=== PATIENT | female | born 1975 | race Caucasian/White ===

== ENCOUNTER → 2017-06-29 10:58 | Outpatient (CLI) | payer OTHER, SELFPAY ==
[2017-06-29 12:24] LABS: Absolute Lymphocyte Count 1.87 X10^3/ul (0.83-4.51); Absolute Neutrophil Count 4.4 X10^3/uL (2.0-7.7); Basophil# 0.01 X10^3/uL; Basophil% 0.1 % (0-1); Eosinophil# 0.14 X10^3/uL; Eosinophils% 2.1 % (0-5); Hematocrit 39.7 % (37-47); Hemoglobin 13.2 g/dl (12.0-15.0); Lymphocyte # 1.87 X10^3/ul (4.0); Lymphocyte % 27.4 % (19-41); Mean Corp Hgb Conc 33.2 g/gl (32-36); Mean Corpuscular Volume 90.2 fL (81-99); Mean Platelet Vol. 12.2 fl (6.2-12.0); Monocyte# 0.41 X10^3/uL; Neutrophil # 4.38 X10^3/uL (2.7-7.7); Neutrophil % 64.3 % (47-70); Platelet Count 219 K/mm3 (150-450); RBC Distribution Width CV 12.4 % (11.6-14.6); RBC Distribution Width SD 40.6 fl (35.1-43.9); White Blood Count 6.8 K/mm3 (4.4-11.0)
[2017-06-29 12:25] LABS: POSITIVE COUNT NO; POSITIVE DIFFERENTIAL NO; POSITIVE MORPHOLOGY NO
[2017-06-29 12:47] LABS: Hemoglobin A1c 5.6 % (4.2-6.3)
[2017-06-29 12:55] LABS: AST(SGOT) 13 U/L (15-37); Alanine Aminotransfer ALT/SGPT 26 U/L (13-56); Albumin, Serum 3.5 g/dL (3.2-5.0); Alkaline Phosphatase 52 U/L (45-117); Anion Gap 11 (5-15); BUN 16 mg/dL (7-18); BUN/Creat Ratio 23.6 RATIO (10-20); Calcium,Total 9.3 mg/dL (8.5-10.1); Chloride 107 mmol/L (98-107); Cholesterol 220 mg/dL (200); Creatinine, Serum 0.68 mg/dL (0.55-1.02); EST Glomerular Filtration Rate 101 mL/min (>60); Est Glom Filt Rate - Afr Amer 123 mL/min (>60); Globulin 3.6 g/dL (2.2-4.2); Glucose 92 mg/dL (74-106); High Density Lipoprotein 46 mg/dL; Potassium 4.1 mmol/L (3.5-5.1); Protein, Total 7.1 g/dL (6.4-8.2); Sodium Level 141 mmol/L (136-145); Triglycerides 217 mg/dL; Very Low Density Lipoprotein 43 mg/dL (5-40)
[2017-06-30 10:29] LABS: Vitamin B12 395 pg/mL (211-911); Vitamin D,25 Hydroxy 20.7 ng/mL (29.95-100.01)
== END ==
PROVIDERS: Family Provider Family Medicine; PCP Family Medicine; Visit Provider Family Medicine
DX: R53.83 Other fatigue (principal); E66.01 Morbid (severe) obesity due to excess calories; R03.0 Elevated blood-pressure reading, without diagnosis of hypertension; Z83.3 Family history of diabetes mellitus
CPT/HCPCS: 36415; 80053; 80061; 82306; 82607; 83036; 83735; 84443; 85025

== ENCOUNTER → 2017-07-25 07:00 | Outpatient (CLI) | payer OTHER, SELFPAY ==
--- NOTE | 2017-07-25 06:55 | BI_ITS ---
MAMMOGRAPHY - BILATERAL SCREENING REASON FOR EXAM: Female, 42 years old. Routine annual screening examination. PERTINENT HISTORY: NO FAM HX - NO PREV SURG'S - LT MOLE AND SXILLARY TAGS TECHNIQUE: Digital bilateral breast oscar (3D mammographic acquisition) in the CC and MLO projections. 2-D mediolateral oblique (MLO) and craniocaudad (CC) views of both breasts were obtained. CAD: Full Field Digital Mammography with Computer Added Detection was performed. COMPARISON: 07/16/2015 FINDINGS: Breast Composition: The breasts are heterogeneously dense, which may obscure small masses. There are no There is an asymmetric density in the upper part of the left breast for which further evaluation by spot compression views and ultrasound would be recommended. There are no suspicious calcifications. dominant masses or suspicious calcifications. No other significant abnormalities are identified. BI/SCREENING MAMM (CAD), BILAT IMPRESSION: Further imaging evaluation recommended, as described above. (E) ASSESSMENT CATEGORY: BIRADS Category 0: Incomplete. Need additional imaging evaluation. A letter regarding these results will be sent to the patient by the facility within 30 days. Approximately 10% of breast cancers are not detected by mammography. A normal mammogram should not delay biopsy of a clinically suspicious abnormality. [id number] Electronically Signed: Connie Cabrera MD at 15:42 EDT Tel , Service support ,
--- NOTE | 2017-07-25 07:00 | DT_ITS ---
This patient was seen during an EMR downtime July 24, 2017 - July 31, 2017. This patient may have a combination of paper and electronic documentation or all paper documentation. All documentation is viewable within the e-chart portion of [email or web address] for each patient visit.
== END ==
PROVIDERS: Family Provider Family Medicine; PCP Family Medicine; Visit Provider Obstetrics & Gynecology
DX: Z12.31 Encounter for screening mammogram for malignant neoplasm of breast (principal); N64.89 Other specified disorders of breast
CPT/HCPCS: 77063; 77067

== ENCOUNTER → 2017-07-31 19:01 | Outpatient (CLI) | payer OTHER, SELFPAY ==
--- NOTE | 2017-07-31 19:01 | DT_ITS ---
This patient was seen during an EMR downtime July 24, 2017 - July 31, 2017. This patient may have a combination of paper and electronic documentation or all paper documentation. All documentation is viewable within the e-chart portion of [facility] for each patient visit.
[2017-08-09 09:47] LABS: HPV APTIMA, High Risk Negative (Negative)
== END ==
PROVIDERS: Family Provider Family Medicine; PCP Family Medicine; Visit Provider Obstetrics & Gynecology
DX: Z12.4 Encounter for screening for malignant neoplasm of cervix (principal)
CPT/HCPCS: 88175; G0145

== ENCOUNTER → 2017-08-14 13:57 | Outpatient (CLI) | payer OTHER, SELFPAY ==
--- NOTE | 2017-08-14 14:01 | BI_ITS ---
MAMMOGRAPHY - UNILATERAL DIAGNOSTIC: LEFT BREAST REASON FOR EXAM: Female, 42 years old. Abnormal screening mammogram. PERTINENT HISTORY: Non-contributory. TECHNIQUE: Compression spot views of the left breast were obtained in the mediolateral oblique and craniocaudad projections. CAD: Full Field Digital Mammography with Computer Added Detection was performed. COMPARISON: Comparison is made with prior study dated July 25, 2017. FINDINGS: Breast Composition: The breasts are heterogeneously dense, which may obscure small masses. There are no dominant masses or suspicious calcifications. The asymmetry of breast tissue is not seen at this time. No other significant abnormalities are identified. BI/DIAG MAMM W/CAD, UNILAT IMPRESSION: Stable unilateral diagnostic mammogram. Correlation with ultrasound of the left breast is recommended. ASSESSMENT CATEGORY: BIRADS Category 0: Incomplete. Need additional imaging evaluation. A letter regarding these results will be sent to the patient by the facility within 30 days. Approximately 10% of breast cancers are not detected by mammography. A normal mammogram should not delay biopsy of a clinically suspicious abnormality. Electronically Signed: Elie Rodriguez MD at 8:04 EDT Tel [phone], Service support ,
--- NOTE | 2017-08-14 14:03 | US_ITS ---
STUDY: ULTRASOUND BREAST - LEFT REASON FOR EXAM: Female, 42 years old. Abnormal screening mammogram. TECHNIQUE: Axial and longitudinal images of the LEFT breast were performed with a high resolution ultrasound transducer. COMPARISON: Comparison is made with prior mammogram dated July 25, 2017. FINDINGS: LEFT Breast: There is a 3 mm x 4 mm x 3 mm cyst at the 12:00 position of the breast at 2 cm some nipple. US/Breast Limited Unilateral IMPRESSION: 3 mm x 4 mm x 3 mm cyst at the 12:00 position of the breast at 2 cm from the nipple. Routine annual mammographic follow-up is recommended. ASSESSMENT CATEGORY: BIRADS Category 2: Benign. A letter regarding these results will be sent to the patient by the facility within 30 days. Electronically Signed: Elie Rodriguez MD at 15:50 EDT Tel [phone], Service support ,
== END ==
PROVIDERS: Family Provider Family Medicine; PCP Family Medicine; Visit Provider Obstetrics & Gynecology
DX: R92.8 Other abnormal and inconclusive findings on diagnostic imaging of breast (principal)
CPT/HCPCS: 76642; 77065

== ENCOUNTER → 2017-09-18 16:43 | Outpatient (CLI) | payer OTHER, SELFPAY | PROVIDERS: Family Provider Family Medicine; PCP Family Medicine; Visit Provider Family Medicine | DX: Z00.00 Encounter for general adult medical examination without abnormal findings (principal) ==

== ENCOUNTER → 2017-10-06 10:25 | Outpatient (CLI) | payer OTHER, SELFPAY ==
[2017-10-06 12:36] LABS: Cholesterol 218 mg/dL (200); High Density Lipoprotein 50 mg/dL; Triglycerides 182 mg/dL; Very Low Density Lipoprotein 36 mg/dL (5-40)
[2017-10-06 12:38] LABS: Vitamin D,25 Hydroxy 25.8 ng/mL (29.95-100.01)
== END ==
PROVIDERS: Family Provider Family Medicine; PCP Family Medicine; Visit Provider Family Medicine
DX: E78.5 Hyperlipidemia, unspecified (principal); E55.9 Vitamin D deficiency, unspecified
CPT/HCPCS: 36415; 80061; 82306

== ENCOUNTER → 2018-04-16 13:00 | Outpatient (CLI) | payer OTHER, SELFPAY ==
[2018-04-16 14:24] LABS: Vitamin D,25 Hydroxy 16.5 ng/mL (29.95-100.01)
== END ==
PROVIDERS: Family Provider Family Medicine; PCP Family Medicine; Referring Provider Family Medicine; Visit Provider Family Medicine
DX: E55.9 Vitamin D deficiency, unspecified (principal)
CPT/HCPCS: 36415; 82306

== ENCOUNTER → 2018-04-19 08:41 | Outpatient (CLI) | payer OTHER, SELFPAY ==
[2018-04-19 10:23] LABS: Hemoglobin A1c 5.7 % (4.2-6.3)
== END ==
PROVIDERS: Family Provider Family Medicine; PCP Family Medicine; Referring Provider Family Medicine; Visit Provider Family Medicine
DX: R73.09 Other abnormal glucose (principal)
CPT/HCPCS: 36415; 83036

== ENCOUNTER → 2018-05-02 17:42 | Outpatient (CLI) | payer OTHER, SELFPAY ==
[2018-05-02 13:25] VITALS: BMI 42.1
== END ==
PROVIDERS: Family Provider Family Medicine; PCP Family Medicine; Referring Provider Obstetrics & Gynecology; Visit Provider Obstetrics & Gynecology
DX: N75.0 Cyst of Bartholin's gland (principal)
CPT/HCPCS: 87070; 87077; 87186; 87205

== ENCOUNTER → 2018-10-17 15:59 | Outpatient (CLI) | payer OTHER, SELFPAY ==
[2018-05-02 13:25] VITALS: BMI 42.1
--- NOTE | 2018-10-17 16:01 | BI_ITS ---
MAMMOGRAPHY - BILATERAL SCREENING REASON FOR EXAM: Female, 43 years old. Routine annual screening examination. PERTINENT HISTORY: Aunt with breast cancer. TECHNIQUE: Digital bilateral breast stephanie (3D mammographic acquisition) in the CC and MLO projections. 2-D mediolateral oblique (MLO) and craniocaudad (CC) views of both breasts were obtained. CAD: Full Field Digital Mammography with Computer Added Detection was performed. COMPARISON: Comparison is made with prior mammogram dated July 25, 2017 and August 14, 2017. FINDINGS: Breast Composition: The breasts are heterogeneously dense, which may obscure small masses. There are no dominant masses or suspicious calcifications. Stable asymmetry of breast tissue or more breast tissue is seen in the upper deep lateral aspect of the left breast. No other significant abnormalities are identified. There has been no significant change since the prior study. BI/SCREEN MAMM (CAD) W/STEPHANIE BILAT IMPRESSION: Stable bilateral screening mammogram. Yearly follow-up mammogram recommended. (A) ASSESSMENT CATEGORY: BIRADS Category 2: Benign. A letter regarding these results will be sent to the patient by the facility within 30 days. Approximately 10% of breast cancers are not detected by mammography. A normal mammogram should not delay biopsy of a clinically suspicious abnormality. [id number] Electronically Signed: Elie Rodriguez, at 8:32 EDT , Service support ,
== END ==
PROVIDERS: Family Provider Family Medicine; PCP Family Medicine; Referring Provider Obstetrics & Gynecology; Visit Provider Obstetrics & Gynecology
DX: Z12.31 Encounter for screening mammogram for malignant neoplasm of breast (principal)
CPT/HCPCS: 77063; 77067

== ENCOUNTER → 2019-08-13 10:39 | Outpatient (CLI) | payer OTHER, SELFPAY ==
[2019-05-02 10:57] VITALS: BMI 38.9
[2019-08-13 13:13] LABS: Hemoglobin A1c 5.3 % (3.8-5.6)
[2019-08-13 13:27] LABS: ALB/GLOB Ratio 1.3 RATIO (0.9-2.4); AST(SGOT) 13 U/L (15-37); Alanine Aminotransfer ALT/SGPT 26 U/L (13-56); Albumin, Serum 3.8 g/dL (3.2-5.0); Alkaline Phosphatase 55 U/L (45-117); Anion Gap 8 (5-15); BUN 16 mg/dL (7-18); BUN/Creat Ratio 25.1 RATIO (10-20); Calcium,Total 8.9 mg/dL (8.5-10.1); Chloride 109 mmol/L (98-107); Cholesterol 212 mg/dL (200); Creatinine, Serum 0.64 mg/dL (0.55-1.02); EST Glomerular Filtration Rate 108 mL/min (>60); Est Glom Filt Rate - Afr Amer 130 mL/min (>60); Glucose 94 mg/dL (74-106); High Density Lipoprotein 56 mg/dL; Potassium 4.4 mmol/L (3.5-5.1); Protein, Total 6.8 g/dL (6.4-8.2); Sodium Level 142 mmol/L (136-145); Triglycerides 83 mg/dL; Very Low Density Lipoprotein 17 mg/dL (5-40)
[2019-08-13 13:35] LABS: Vitamin D,25 Hydroxy 31.1 ng/mL
== END ==
PROVIDERS: PCP Family Medicine; Referring Provider Family Medicine; Visit Provider Family Medicine
DX: R53.83 Other fatigue (principal); R73.02 Impaired glucose tolerance (oral); E78.5 Hyperlipidemia, unspecified; E55.9 Vitamin D deficiency, unspecified
CPT/HCPCS: 36415; 80053; 80061; 82306; 83036

== ENCOUNTER → 2020-04-13 15:59 | Outpatient (CLI) | payer OTHER, SELFPAY ==
[2019-05-02 10:57] VITALS: BMI 38.9
--- NOTE | 2020-04-13 16:02 | BI_ITS ---
MAMMOGRAPHY - BILATERAL SCREENING REASON FOR EXAM: Female, 44 years old. Routine annual screening examination. PERTINENT HISTORY: Aunt with breast cancer. TECHNIQUE: Digital bilateral breast stephanie (3D mammographic acquisition) in the CC and MLO projections. 2-D mediolateral oblique (MLO) and craniocaudad (CC) views of both breasts were obtained. CAD: Full Field Digital Mammography with Computer Added Detection was performed. COMPARISON: Comparison is made with prior examination dated 10/17/2018 and 08/14/2017. FINDINGS: Breast Composition: The breasts are heterogeneously dense, which may obscure small masses. There are no dominant masses or suspicious calcifications. Stable asymmetry of breast tissue where more breast tissue is seen in the upper deep lateral aspect of the left breast as compared to the right side. No other significant abnormalities are identified. There has been no significant change since the prior study. BI/SCRN MAMM (CAD)W/STEPHANIE BILAT IMPRESSION: Stable bilateral screening mammogram. Yearly follow-up mammogram recommended. (A) ASSESSMENT CATEGORY: BIRADS Category 2: Benign. A letter regarding these results will be sent to the patient by the facility within 30 days. Approximately 10% of breast cancers are not detected by mammography. A normal mammogram should not delay biopsy of a clinically suspicious abnormality. [id number] Electronically Signed: Elie Rodriguez MD at 8:15 EST , Service support ,
== END ==
PROVIDERS: PCP Family Medicine; Referring Provider Obstetrics & Gynecology; Visit Provider Obstetrics & Gynecology
DX: Z12.31 Encounter for screening mammogram for malignant neoplasm of breast (principal)
CPT/HCPCS: 77063; 77067

== ENCOUNTER → 2020-06-11 08:10 | Outpatient (CLI) | payer OTHER, SELFPAY ==
[2020-05-04 10:29] VITALS: BMI 38.8
[2020-06-11 10:14] LABS: Absolute Lymphocyte Count 1.39 X10^3/uL (0.83-4.51); Absolute Neutrophil Count 2.8 X10^3/uL (2.0-7.7); Basophil# 0.01 X10^3/uL; Basophil% 0.2 % (0-1); Eosinophil# 0.11 X10^3/uL; Eosinophils% 2.4 % (0-5); Hematocrit 40.3 % (37-47); Hemoglobin 12.1 g/dL (12.0-15.0); Lymphocyte # 1.39 X10^3/ul (0.83-4.51); Lymphocyte % 30.4 % (19-41); Mean Corpuscular Hgb 25.8 pg (27.0-32.0); Mean Corpuscular Volume 85.9 fL (81-99); Mean Platelet Vol. 12.2 fl (6.2-12.0); Monocyte# 0.26 X10^3/uL; Monocyte% 5.7 % (0-10); NRBC Flagged by Analyzer 0 % (0-5); Neutrophil # 2.78 X10^3/uL (2.7-7.7); Neutrophil % 60.9 % (47-70); Platelet Count 256 K/mm3 (150-450); RBC Distribution Width CV 15.9 % (11.6-14.6); RBC Distribution Width SD 49.7 fl (35.1-43.9); Red Blood Count 4.69 M/mm3 (4.2-5.4); White Blood Count 4.6 K/mm3 (4.4-11.0)
[2020-06-11 10:35] LABS: Hemoglobin A1c 5.5 % (3.8-5.6)
[2020-06-11 10:50] LABS: ALB/GLOB Ratio 1.1 RATIO (0.9-2.4); AST(SGOT) 17 U/L (15-37); Alanine Aminotransfer ALT/SGPT 29 U/L (13-56); Albumin, Serum 3.7 g/dL (3.2-5.0); Alkaline Phosphatase 56 U/L (45-117); Anion Gap 4 (5-15); BUN 17 mg/dL (7-18); BUN/Creat Ratio 21.9 RATIO (10-20); Calcium,Total 9.3 mg/dL (8.5-10.1); Chloride 107 mmol/L (98-107); Cholesterol 253 mg/dL (200); Creatinine, Serum 0.78 mg/dL (0.55-1.02); EST Glomerular Filtration Rate 85 mL/min (>60); Est Glom Filt Rate - Afr Amer 103 mL/min (>60); Globulin 3.5 g/dL (2.2-4.2); Glucose 111 mg/dL (74-106); High Density Lipoprotein 69 mg/dL; Potassium 4.3 mmol/L (3.5-5.1); Protein, Total 7.2 g/dL (6.4-8.2); Sodium Level 138 mmol/L (136-145); Triglycerides 113 mg/dL; Very Low Density Lipoprotein 23 mg/dL (5-40)
[2020-06-11 11:33] LABS: Vitamin D,25 Hydroxy 27.4 ng/mL
== END ==
PROVIDERS: PCP Family Medicine; Visit Provider Family Medicine
DX: E66.9 Obesity, unspecified (principal); E78.5 Hyperlipidemia, unspecified; E55.9 Vitamin D deficiency, unspecified; R73.02 Impaired glucose tolerance (oral)
CPT/HCPCS: 36415; 80053; 80061; 82306; 83036; 85025

== ENCOUNTER → 2020-07-10 15:44 | Outpatient (CLI) | payer OTHER, SELFPAY ==
[2020-05-04 10:29] VITALS: BMI 38.8
[2020-07-10 18:16] LABS: T4 Free Direct 0.88 ng/dL (0.76-1.46); Thyroid Stim Hormone (TSH) 0.84 uIU/mL (0.358-3.74)
[2020-07-13 20:30] LABS: Anti-Thyroglobulin AB < 1.0 IU/mL (0.0-0.9); Thyroglobulin, Serum Qt. 29.7 ng/mL (1.5-38.5); Thyroid Peroxidase AB < 9 IU/mL (0-34)
== END ==
PROVIDERS: PCP Family Medicine; Referring Provider Family Medicine; Visit Provider Family Medicine
DX: E04.1 Nontoxic single thyroid nodule (principal)
CPT/HCPCS: 36415; 84432; 84439; 84443; 86376; 86800

== ENCOUNTER → 2020-07-15 11:15 | Outpatient (CLI) | payer OTHER, SELFPAY ==
[2020-05-04 10:29] VITALS: BMI 38.8
--- NOTE | 2020-07-15 11:17 | US_ITS ---
STUDY: THYROID ULTRASOUND REASON FOR EXAM: Female, 45 years old. Thyroid nodule. TECHNIQUE: Ultrasound evaluation of the thyroid was performed with real-time and static capellan-scale imaging. COMPARISON: None. FINDINGS: RIGHT LOBE: The right lobe of the thyroid gland is enlarged and measures 5.3 cm x 1.9 cm x 2.5 cm. There is a homogeneous echotexture. There is a 1 cm x 0.8 cm x 0.6 cm complex nodule in the upper pole of the right lobe. There is also evidence of a 1.6 cm x 1.3 cm x 1 cm hypoechoic solid nodule in the midportion posteriorly. There is also evidence of a 1.2 cm x 0.8 cm x 0.9 cm slightly hypoechoic nodule along its medial aspect. LEFT LOBE: The left lobe of the thyroid gland measures 4.9 cm x 1.4 cm x 1.6 cm. There is a homogeneous echotexture. There are no demonstrated solid, cystic or complex lesions. ISTHMUS: The isthmus measures 3 mm. The regional lymph nodes are normal. US/Thyroid IMPRESSION: 3 nodules are seen in the right lobe. The largest hypoechoic solid nodule measuring 1.6 cm x 1.3 cm x 1 cm. Thyroid biopsy recommended. Electronically Signed: Elie Rodriguez MD at 13:04 EDT , Service support ,
== END ==
PROVIDERS: PCP Family Medicine; Referring Provider Family Medicine; Visit Provider Family Medicine
DX: E04.1 Nontoxic single thyroid nodule (principal)
CPT/HCPCS: 76536

== ENCOUNTER → 2020-08-05 06:40 | Outpatient (CLI) | payer OTHER, SELFPAY ==
[2020-05-04 10:29] VITALS: BMI 38.8
--- NOTE | 2020-08-04 08:59 | ASPS_PTH ---
PATIENT: MICHAEL CHOUDHURY LOC: [facility] U#:[id number] AGE/SX: 49/F ROOM: RE08/05/[address]: Dr. Robert Ohara MD : 1975 BED: DIS: SPEC #: [id number] RECD: 08/04/20 17:12 STATUS: TATUM LINDA #: [id number] SAHIL: 08/04/20 08:[address]: Robert Ohara DEPT: CYTOLOGY RECD BY: Skyla Rosado Tissues: Thyroid gland, NOS Procedures: Special Stain Group II Cytology Other HEADER OPERATION: Fine needle aspiration right thyroid PRE-OP DIAGNOSIS: Multinodular goiter TISSUE SUBMITTED: Right thyroid FNA x12 slides DIAGNOSIS CYTOLOGY Right thyroid nodule, FNA (smears): Suspicious for follicular neoplasm with Hurthle cell features. Adequate for evaluation. See comment. PAULINA:dewayne 08/06/2020 COMMENT Nuclear grooving and intranuclear inclusions are also noted, suspicious for papillary thyroid carcinoma. Correlation with clinical, radiologic findings and appropriate follow up are necessary. Case has been reviewed in consultation with Dr. Pritchett who concurs with the above diagnosis. IDC:AM CYTOLOGY STUDY Slides are reviewed. CYTOLOGY GROSS Received are 12 smears labeled with the patient's name and designated per the requisition as right thyroid. Submitted for staining. / dewayne 08/05/2020 TC:4 CPT: 39490
== END ==
LOC: LAB 06:41
PROVIDERS: Visit Provider Surgery
DX: E04.2 Nontoxic multinodular goiter (principal)
CPT/HCPCS: 88161; 88313

== ENCOUNTER 2020-08-17 09:56 | Day surgery (SDC) | payer OTHER, SELFPAY ==
[2020-05-04 10:29] VITALS: BMI 38.8
[2020-08-17] VITALS (11 sets, daily range): BP systolic 112–140; BP diastolic 63–86; PULSE 79–104; RESP 16–20; TEMP 36.1–37.1; O2SAT 92–100; BMI 39.0
--- NOTE | 2020-08-17 | IMM_PTH ---
PATIENT: MICHAEL CHOUDHURY LOC: [facility] U#:[id number] AGE/SX: 45/F ROOM: RE08/17/[address]: Dr. Robert Ohara MD : 1975 BED: DIS: 08/18/2020 SPEC #: [id number] RECD: 08/19/20 12:49 STATUS: TATUM REQ #: [id number] SAHIL: 08/17/20 00:[address]: Robert Ohara DEPT: IMMUNOHISTOCHEMISTRY RECD BY: Angela Ramirez ENTERED: 08/19/20 12:50 SP TYPE: IMMUNO OTHR DR: Dr. Sage Rosa MD Tissues: C - Thyroid gland, NOS Procedures: HBME (initial) CD56 (add) CK19 (add) GAL-3 (add) HBME (add) PHYSICIAN & INSTITUTION [place] [id number] SPECIMEN INFORMATION: Tissue Source: C - Thyroid Clinical Info: Papillary thyroid carcinoma Specimen Number: [id number] C5 & C9 CPT code: 94682, 57244 x7 METHODOLOGY: Deparaffinized sections of prefer/formalin-fixed tissue or PAP/DQ stained slides are incubated with monoclonal/polyclonal antibodies/oligonucleotide probes. Localization is made via biotin free immunoperoxidase method. Appropriate controls are performed and reacted as expected. Results on target cell population are indicated in the following table: RESULTS: ANTIBODY / CLONE RESULT Block C5 HBME1 (HBME-1) positive CK19 (A53-B/A2.26) positive GAL3 (9C4) positive CD56 (123C3.D5) positive, rare cells, weak Block C9 HBME1 (HBME-1) positive CK19 (A53-B/A2.26) positive GAL3 (9C4) negative CD56 (123C3.D5) positive These tests were developed and their performance characteristics determined by [facility]. They may not have been cleared or approved by the U.S. Food and Drug Administration. The FDA has determined that such clearance or approval is not necessary. The above immunohistochemical/dualISH markers are ordered and reviewed by the Pathologist. INTERPRETATION: Thyroid, total thyroidectomy: Papillary thyroid carcinoma (block C5). Follicular adenoma (block C9). SJ:dewayne 08/20/2020 Case has been reviewed in consultation with Dr. Pritchett who concurs with the above diagnosis. IDC:GREGORY
[2020-08-17 10:24] LABS: Internal QC Validated? YES +Cl - CLEAR BKGD
[2020-08-17 10:25] LABS: Pregnancy, Urine Negative Negative
[2020-08-17] MEDS: Lactated Ringers 1,000 ML 100 ML IV ×2 (10:38→13:53)
[2020-08-17] MEDS: Cefazolin 2 GM in 0.9% Normal Saline 100 ML IV (11:52)
--- NOTE | 2020-08-17 12:00 | THYROID_PTH ---
PATIENT: MICHAEL CHOUDHURY [place] [facility] [place] U#:[id number] AGE/SX: 45/F ROOM: RE08/17/[address]: Dr. Robert Ohara MD : 1975 BED: DIS: 08/18/2020 SPEC #: [id number] RECD: 08/17/20 13:56 STATUS: TATUM RENitesh #: [id number] SAHIL: 08/17/20 12:[address]: Robert Ohara DEPT: SURGICAL PATHOLOGY RECD BY: Skyla Rosado ENTERED: 08/18/20 08:11 SP TYPE: THYROID OTHR DR: Dr. Sage Rosa MD Tissues: A - Lymph node, NOS B - TISSUE SURGICALLY REMOVED C - Thyroid gland, NOS Procedures: Surgery Specimen Level IV Surgery Specimen Level V HEADER OPERATION: Total thyroidectomy PRE-OP DIAGNOSIS: Papillary thyroid carcinoma TISSUE SUBMITTED: A - Lymph node central compartment, B - Inferior compartment, C - Thyroid MICROSCOPIC DIAGNOSIS A. Lymph node central compartment, biopsy: One out of two lymph nodes positive for metastatic carcinoma. See comment. B. Inferior compartment lymph node, biopsy: Three out of four lymph nodes positive for metastatic carcinoma. See comment. C. Thyroid, total thyroidectomy: Papillary thyroid carcinoma, right lobe. Follicular adenoma, left lobe. Two out of three perithyroidal lymph nodes positive for metastatic carcinoma. See cancer summary in the comment section. SJ:dewayne 08/20/2020 COMMENT A. The metastatic focus measures <0.1 cm in greatest dimension. Extranodal extension is not seen. B. The largest focus of metastasis measures 0.1 cm in greatest dimension. Extranodal extension is not seen. C. Immunohistochemistry ([id number]) supports the diagnosis of papillary carcinoma and follicular adenoma. Some of the colloid nodules shows Hurthle cell features. The largest focus of metastasis in the lymph nodes measures 0.1 cm in greatest dimension. Extranodal extension is not seen. THYROID CANCER SUMMARY Procedure: Total thyroidectomy Tumor Focality: Unifocal Tumor Site: Right lobe Tumor Size: 1.5 x 1.2 x 1 cm Histologic Type: Papillary carcinoma, classic with oncocytic/Hurthle cell features. Margins: Margins uninvolved by carcinoma. The tumor is <0.1 cm away from the anterior margin. Angioinvasion (vascular invasion): Not identified Lymphatic Invasion: Not identified Perineural invasion: Not identified Extrathyroidal Extension: Not identified Regional Lymph Nodes: Number of lymph nodes involved: 6 Kia levels involved: Perithyroidal (central and inferior compartment) Size of largest metastatic deposit: 0.1 cm Extranodal extension: Not identified Number of lymph nodes examined: 9 Kia level examined: Perithyroidal (central and inferior compartment) Additional pathologic findings: Multinodular goiter - Follicular adenoma (0.8 cm in greatest dimension), left lobe Ancillary Studies: Please refer to IHC ([id number]) Clinical History: Please make reference to previous specimen ([id number]), right thyroid nodule, FNA with diagnosis of ?suspicious for follicular neoplasm with Hurthle cell features?, with a comment that nuclear grooving and intranuclear inclusions are also noted, suspicious for papillary thyroid carcinoma. PATHOLOGIC STAGE: pT1b pN1a pMx The above summary is in compliance with [employer] (CAP) Cancer Protocols Checklist and [place] [employer] Committee on Cancer (AJCC), Staging Manual, 8th Ed. Case has been reviewed in consultation with Dr. Pritchett who concurs with the above diagnosis. IDC:AM MICROSCOPIC DESCRIPTION Slides are reviewed. GROSS DESCRIPTION A - Received in fixative is one container labeled with the patient's name and designated lymph node central compartment. The specimen consists of a piece of ann soft tissue measuring 0.5 x 0.5 x 0.2 cm. The entire specimen is submitted in one cassette. B - Received in fixative is one container labeled with the patient's name and designated inferior compartment. The specimen consists of an irregular piece of ann-yellow adipose tissue measuring 3 x 1.5 x 0.3 cm. One nodule, possible lymph node, is identified measuring 0.3 cm in greatest dimension. The entire specimen is submitted in one cassette. C - Received in fixative is one container labeled with the patient's name and designated thyroid. The specimen consists of a total thyroidectomy specimen weighing 14 gm. The right thyroid lobe measures 4 x 2.5 x 1.5 cm and left thyroid lobe measures 3.5 x 1.5 x 1.5 cm. The isthmus measures 1.5 x 0.5 x 0.4 cm. No external parathyroid tissue is identified. The specimen is inked as follows: posterior surface right lobe, left lobe and isthmus - black, anterior surface right lobe - blue, anterior surface left lobe - green, anterior surface isthmus - yellow. Sections of the right lobe reveal a ann-white solid nodule in the lower portion of the lobe measuring 1.5 x 1.2 x 1 cm. Multiple colloidy nodules are also noted. No well-defined capsule is noted surrounding the ann-white nodule in the right lobe. Sections of the left lobe reveal a ann-white, solid nodule in the superior portion of the lobe measuring 0.8 cm in greatest dimension. Sections of the isthmus do not reveal any mass lesion. The entire specimen is submitted in one cassette 13 cassettes are follows: 1 - isthmus, 2-8 - right lobe (2 containing most superior portion and 8 containing most inferior portion), 9-13 - left lobe (9 containing most superior portion and 13 containing most inferior portion). / PAULINA:dewayne 08/18/20 TC:0 CPT: 15259, 85023 x2
[2020-08-17] MEDS: BUPIVACAINE LIPOSOME/PF 20 ML VIAL OPERA.SITE (12:19)
--- NOTE | 2020-08-17 13:32 | OP.PCM_ITS ---
Problems Associated Problem List Diagnoses (1) Papillary thyroid carcinoma: Report of Operation Date of Procedure: 08/17/20 Pre-Operative Diagnosis: Papillary thyroid cancer Post-Operative Diagnosis: The same Surgery/Procedure Performed:: Total thyroidectomy Surgeon: Robert Ohara fruit or nut farmer: Amado Walker Type of Anesthesia: General Anesthesiologist: Jeff Turner Specimen's removed: Total thyroid, central compartment lymph node, inferior compartment lymph node Estimated Blood Loss (mL): < 25 cc Description of Procedure: Patient was brought into the operating room. Placed in the supine position. Under excellent general tracheal ovation thyroid was placed underneath the shoulder blades and neck was extended. The neck was then sterilely prepped and draped in usual fashion. Local was injected. Cervical incision was made. Subplatysmal flaps were created. This was done with electrocautery. Gelpi retractor was placed inside the wound. Midline strap muscles were opened. Starting on the right side I took the superior pole vessels down with harmonic dissector then the middle thyroidal vein down with harmonic dissector and then the inferior thyroid vessels down with harmonic dissector. I then rotated the gland from lateral to medial standpoint identifying both the inferior and superior parathyroid glands. I rotated the gland took the gland off of Jones's ligament with harmonic dissector. The firm area of the papillary thyroid cancer was on the medial aspect towards the isthmus. I took the isthmus off of the thyroid and then rotated the gland and started down the inferior thyroid vessels on the right side. These were taken down with harmonic dissector. I took a central compartment lymph node I then remove the superior thyroid vessels down with a harmonic dissector. I rotated the gland from a lateral medial standpoint really did not have a middle thyroidal vein here. As I rotated I stayed close to the gland and took the Jones's ligaments off with harmonic dissector. I inspected the gland no par athyroid tissue was located within it I took some tissue from the middle inferior compartment with a harmonic dissector and sent this off as well. I irrigated my wounds Chanel stasis was noted. I placed FloSeal in both the thyroid beds. Midline strap muscles were brought together with a 2-0 Vicryl. Subplatysmal flaps were brought together with a 2-0 Vicryl. Deep dermal stitches of 3-0 Vicryl in a running 4-0 Monocryl on the skin. Dermabond was applied sterile dressings were applied and the patient tolerated the procedure well. Procedure Start Time: 12:19 Admit VTE Documentation VTE Present on Admission: No VTE Mechan Device Prophylaxis: SCD's VTE Pharm Prophylaxis ordered?: No Reason prophylaxis not ordered:: Treatment Not Indicated
[2020-08-17] MEDS: Calcium Carbonate 500 MG Tablet 1000 MG PO ×2 (15:29→17:02)
[2020-08-17] MEDS: Acetaminophen 325 MG Tablet 650 MG PO (15:40)
[2020-08-17] MEDS: 0.9% Normal Saline 1,000 ML 75 ML IV (18:27)
[2020-08-17 18:35] LABS: Calcium,Total 8.6 mg/dL (8.5-10.1)
[2020-08-17] MEDS: Albuterol 2.5 MG/3 ML VIAL.NEB. INHALATION (19:12)
[2020-08-17] MEDS: oxyCODONE 5 MG Tablet PO (20:55)
[2020-08-17 22:59] LABS: Calcium,Total 8.6 mg/dL (8.5-10.1)
[2020-08-18 00:34] VITALS: PULSE 111; RESP 18
[2020-08-18] MEDS: Albuterol 2.5 MG/3 ML VIAL.NEB. INHALATION (00:34)
[2020-08-18 02:24] VITALS: BP 106/64; PULSE 102; RESP 18; TEMP 36.9; O2SAT 95
[2020-08-18] MEDS: Acetaminophen 325 MG Tablet 650 MG PO (02:28)
[2020-08-18] MEDS: 0.9% Normal Saline 1,000 ML 75 ML IV (05:19)
[2020-08-18 05:21] VITALS: BP 107/63; PULSE 97; RESP 16; TEMP 37.1; O2SAT 95
[2020-08-18] MEDS: Levothyroxine 100 MCG Tablet PO (05:23)
[2020-08-18 07:13] LABS: Calcium,Total 7.9 mg/dL (8.5-10.1)
[2020-08-18 07:24] VITALS: PULSE 100
[2020-08-18] MEDS: Calcium Carbonate 500 MG Tablet 1000 MG PO ×2 (07:31→12:05)
[2020-08-18 09:28] VITALS: O2SAT 95
[2020-08-18 09:37] VITALS: BP 118/67; PULSE 102; RESP 18; TEMP 36.9; O2SAT 95
--- NOTE | 2020-08-18 09:41 | PHA.DC.MC ---
Pharmacy Service has performed discharge medication reconciliation and counseling for this patient. 1. CALCIUM CARBONATE 1000MG PO TIDCM X 7 DAYS 2. LEVOTHYROXINE 100MCG PO DAILY 3. OXYCODONE/ACETAMINOPHEN 5/325MG 1T PO Q4H PRN PAIN X 5 DAYS The patient's discharge medication list was reviewed for discrepancies and discrepancies were resolved. Home Medications multivitamin,vr-fiqu-fiqxhmvs 1 tab PO DAILY 05/02/18 cholecalciferol (vitamin D3) 50 mcg (2,000 unit) capsule 50 mcg PO DAILY 05/04/20 albuterol sulfate [Proair Digihaler] 2 inh INHALATION Q6H 08/14/20 calcium carbonate 1,000 mg PO TIDCM 7 Days #105 tab 08/18/20 levothyroxine [Levoxyl] 100 mcg PO DAILY 30 Days #30 tab 08/18/20 oxycodone-acetaminophen [Percocet] 1 tab PO Q4H PRN 5 Days #20 tab 08/18/20 The patient was counseled on the following discharge medications and changes in medications for homegoing were reviewed. The Reason for Use, instructions for use, and potential side effects were reviewed for all new medications. The patient's questions regarding all of their medications were answered. The patient was able to verbally demonstrate an understanding of their discharge medications.
--- NOTE | 2020-08-18 10:12 | EX.PCM.DISCH ---
Discharge Instructions Procedure General Surgery Diet Discharge Diet: Light diet - advance as tolerated (If you have questions about your diet instructions, please talk to your doctor.) Activity Discharge Activity: May Not Drive (for 1 week or while taking narcotic pain medicine.) May shower in (days): 1 Lifting Restrictions: 10 pounds Dressing / Incision Call your doctor if your incision/area has: Continuous Slow Oozing, Sudden Increased Bleeding, Increased Pain/ Swelling, Increased Redness and Foul Smelling Discharge Call your doctor if you observe: Fever of 101 or Higher Suture Line Care: Avoid Pulling/Pushing and Avoid Pinching/Bending Additional Dressing/Incision Instructions:: Change or remove dressing in 4 days. Leave steri-strips in place for 1 week. Follow Up Care Please Follow Up With: Aisha Nguyen PA-C When: Call office to schedule an appointment to be seen in about 10 days. Test Results: Test results from this visit will be discussed in further detail at your follow-up appointment, if applicable. Discharge Plan Admission Attending Provider: Robert Ohara Primary Care Provider: Sage Rosa Discharge Orders/Prescriptions Prescriptions: New calcium carbonate 200 mg calcium (500 mg) Tablet,Chewable 1,000 mg PO TIDCM 7 Days Qty: 105 RF: 0 levothyroxine [Levoxyl] 100 mcg tablet 100 mcg PO DAILY 30 Days Qty: 30 RF: 12 oxycodone-acetaminophen [Percocet] 5-325 mg tablet 1 tab PO Q4H PRN (Reason: pain) 5 Days Qty: 20 RF: 0 No Action Complete Multivitamin tablet 1 tab PO DAILY RF: 0 cholecalciferol (vitamin D3) 50 mcg (2,000 unit) capsule 50 mcg PO DAILY RF: 0 Proair Digihaler 90 mcg/actuation Aero Powdr Breath Act W/Sensor 2 inh INHALATION Q6H RF: 0 Referrals / Follow Up: Sage Rosa MD [Primary Care Provider] - Disposition Disposition (needs filled in before D/C Order can be placed): Home, Self Care
== END 2020-08-18 13:12 | disposition home or self-care (01) ==
LOC: SDC 09:58 → AC 09:59 → MS3 14:00
PROVIDERS: Anesthesiology; PCP Family Medicine; Referring Provider Surgery; Visit Provider Surgery
PROC: (CPT 60240; principal; 2020-08-17 11:45)
DX: C73 Malignant neoplasm of thyroid gland (principal); C77.9 Secondary and unspecified malignant neoplasm of lymph node, unspecified; E78.5 Hyperlipidemia, unspecified; J45.909 Unspecified asthma, uncomplicated; Z79.899 Other long term (current) drug therapy; Z79.51 Long term (current) use of inhaled steroids
CPT/HCPCS: 60240; 36415; 81025; 82310; 88305; 88307; 88341; 88342; 94640; 99251; J7030; J7120; G0463; J2405

== ENCOUNTER → 2020-09-07 10:31 | Outpatient (CLI) | payer OTHER, SELFPAY ==
[2020-09-07 09:20] VITALS: BMI 39.0
[2020-09-07 12:46] LABS: T4 Free Direct 0.99 ng/dL (0.76-1.46); Thyroid Stim Hormone (TSH) 4.01 uIU/mL (0.358-3.74)
[2020-09-08 20:47] LABS: Anti-Thyroglobulin AB < 1.0 IU/mL (0.0-0.9); Thyroglobulin, Serum Qt. 1.6 ng/mL (1.5-38.5)
== END ==
PROVIDERS: PCP Family Medicine; Visit Provider Internal Medicine Endocrinology, Diabetes & Metabolism
DX: C73 Malignant neoplasm of thyroid gland (principal); E89.0 Postprocedural hypothyroidism
CPT/HCPCS: 36415; 84432; 84439; 84443; 86800

== ENCOUNTER → 2020-09-24 13:02 | Outpatient (CLI) | payer OTHER, SELFPAY ==
[2020-09-07 09:20] VITALS: BMI 39.0
[2020-09-24 15:33] LABS: T4 Free Direct 0.47 ng/dL (0.76-1.46)
[2020-09-28 21:57] LABS: Anti-Thyroglobulin AB < 1.0 IU/mL (0.0-0.9); Thyroglobulin, Serum Qt. 1.4 ng/mL (1.5-38.5)
== END ==
PROVIDERS: PCP Family Medicine; Referring Provider Internal Medicine Endocrinology, Diabetes & Metabolism; Visit Provider Internal Medicine Endocrinology, Diabetes & Metabolism
DX: C73 Malignant neoplasm of thyroid gland (principal); E89.0 Postprocedural hypothyroidism
CPT/HCPCS: 36415; 84432; 84439; 84443; 86800

== ENCOUNTER → 2020-09-30 09:27 | Outpatient (CLI) | payer OTHER, SELFPAY ==
[2020-09-07 09:20] VITALS: BMI 39.0
--- NOTE | 2020-09-30 09:30 | NM_ITS ---
STUDY: IODINE 131 THERAPY FOR THYROID CANCER. REASON FOR EXAM: Female, 45 years old. Thyroid Cancer -- 30 mCi ablative dose, -- THYROID REMOVED IN JULY 2020 FINDINGS: The patient ingested 30 mCi of IODINE-131 for ablation of thyroid carcinoma. NM/Therapy I-131 IMPRESSION: Ingestion of 30 mCi of IODINE-131 for ablation of thyroid cancer. Electronically Signed: Elie Rodriguez MD at 11:55 EDT , Service support ,
--- NOTE | 2020-10-02 11:00 | NM_ITS ---
CLINICAL: Female, 45 years old. Follow up ablative dose CASTRO -- Thyroid Cancer -- Thyroid removed in July 2020 THYROID IMAGING STUDY TECHNIQUE: The patient was administered a 30 mCi I-131 given for therapeutic ablation. COMPARISON STUDIES : NM - None. CR - Not available for review at this time. CT - Not available for review at this time. MR - Not available for review at this time. US - Not available for review at this time. FINDINGS: Expected intense activity at the base of the neck. Physiologic activity of the stomach and urinary bladder. No ectopic accumulation of isotope activity. NM/Thyroid Whole Body I-131 Scan IMPRESSION: Radioisotope ablation of the thyroid gland. No demonstrated metastasis. Electronically Signed: Ray Blank MD ([place]) at 13:00 EDT , Service support ,
== END ==
PROVIDERS: PCP Family Medicine; Referring Provider Internal Medicine Endocrinology, Diabetes & Metabolism; Visit Provider Internal Medicine Endocrinology, Diabetes & Metabolism
DX: C73 Malignant neoplasm of thyroid gland (principal)
CPT/HCPCS: 78018; 79005; A9517

== ENCOUNTER → 2020-11-27 11:39 | Outpatient (CLI) | payer OTHER, SELFPAY ==
[2020-11-27 12:57] LABS: T4 Free Direct 1.18 ng/dL (0.76-1.46); Thyroid Stim Hormone (TSH) 9.55 uIU/mL (0.358-3.74)
[2020-11-30 19:23] LABS: Anti-Thyroglobulin AB < 1.0 IU/mL (0.0-0.9); Thyroglobulin, Serum Qt. 0.1 ng/mL (1.5-38.5)
== END ==
PROVIDERS: PCP Family Medicine; Referring Provider Internal Medicine Endocrinology, Diabetes & Metabolism; Visit Provider Internal Medicine Endocrinology, Diabetes & Metabolism
DX: E89.0 Postprocedural hypothyroidism (principal); C73 Malignant neoplasm of thyroid gland
CPT/HCPCS: 36415; 84432; 84439; 84443; 86800

== ENCOUNTER → 2021-01-08 09:15 | Outpatient (CLI) | payer OTHER, SELFPAY ==
[2021-01-08 12:56] LABS: Vitamin D,25 Hydroxy 25.8 ng/mL
[2021-01-08 12:57] LABS: Hemoglobin A1c 5.4 % (3.8-5.6)
[2021-01-08 13:08] LABS: AST(SGOT) 20 U/L (15-37); Alanine Aminotransfer ALT/SGPT 36 U/L (13-56); Albumin, Serum 3.6 g/dL (3.2-5.0); Alkaline Phosphatase 54 U/L (45-117); Anion Gap 6 (5-15); BUN 15 mg/dL (7-18); BUN/Creat Ratio 19.8 RATIO (10-20); Chloride 104 mmol/L (98-107); Cholesterol 217 mg/dL (200); Creatinine, Serum 0.76 mg/dL (0.55-1.02); EST Glomerular Filtration Rate 88 mL/min (>60); Est Glom Filt Rate - Afr Amer 106 mL/min (>60); Globulin 3.6 g/dL (2.2-4.2); Glucose 102 mg/dL (74-106); High Density Lipoprotein 57 mg/dL; Potassium 4.2 mmol/L (3.5-5.1); Protein, Total 7.2 g/dL (6.4-8.2); Sodium Level 138 mmol/L (136-145); Triglycerides 157 mg/dL; Very Low Density Lipoprotein 31 mg/dL (5-40)
[2021-01-08 13:16] LABS: T4 Free Direct 1.38 ng/dL (0.76-1.46)
== END ==
PROVIDERS: PCP Family Medicine; Referring Provider Internal Medicine Endocrinology, Diabetes & Metabolism; Visit Provider Internal Medicine Endocrinology, Diabetes & Metabolism
DX: E78.5 Hyperlipidemia, unspecified (principal); E55.9 Vitamin D deficiency, unspecified; E89.0 Postprocedural hypothyroidism; R73.02 Impaired glucose tolerance (oral)
CPT/HCPCS: 36415; 80053; 80061; 82306; 83036; 84439; 84443

== ENCOUNTER 2021-03-05 09:19 | Outpatient (CLI) | payer OTHER, SELFPAY ==
[2021-03-05 11:21] LABS: T4 Free Direct 1.14 ng/dL (0.76-1.46); Thyroid Stim Hormone (TSH) 2.04 uIU/mL (0.358-3.74)
[2021-03-08 20:29] LABS: Anti-Thyroglobulin AB < 1.0 IU/mL (0.0-0.9); Thyroglobulin, Serum Qt. 0.1 ng/mL (1.5-38.5)
== END 2021-03-05 23:59 | disposition short-term general hospital (02) ==
LOC: BIMLAB 09:19
PROVIDERS: PCP Family Medicine; Referring Provider Internal Medicine Endocrinology, Diabetes & Metabolism; Visit Provider Internal Medicine Endocrinology, Diabetes & Metabolism
DX: C73 Malignant neoplasm of thyroid gland (principal); E89.0 Postprocedural hypothyroidism
CPT/HCPCS: 36415; 84432; 84439; 84443; 86800

== ENCOUNTER 2021-04-14 07:21 | Outpatient (CLI) | payer OTHER, SELFPAY ==
--- NOTE | 2021-04-14 07:23 | BI_ITS ---
MAMMOGRAPHY - BILATERAL SCREENING REASON FOR EXAM: Female, 45 years old. Routine annual screening examination. PERTINENT HISTORY: Aunt with breast cancer. TECHNIQUE: Digital bilateral breast stephanie (3D mammographic acquisition) in the CC and MLO projections. 2-D mediolateral oblique (MLO) and craniocaudad (CC) views of both breasts were obtained. CAD: Full Field Digital Mammography with Computer Added Detection was performed. COMPARISON: Comparison is made with prior study dated 04/13/2020 and 10/17/2018. FINDINGS: Breast Composition: The breasts are heterogeneously dense, which may obscure small masses. There are no dominant masses or suspicious calcifications. Stable asymmetry of breast tissue were more breast tissue is seen in the upper deep lateral aspect of the left breast as compared to the right side No other significant abnormalities are identified. There has been no significant change since the prior study. BI/SCRN MAMM (CAD)W/STEPHANIE BILAT IMPRESSION: Stable bilateral screening mammogram. Yearly follow-up mammogram recommended. (A) ASSESSMENT CATEGORY: BIRADS Category 2: Benign. A letter regarding these results will be sent to the patient by the facility within 30 days. Approximately 10% of breast cancers are not detected by mammography. A normal mammogram should not delay biopsy of a clinically suspicious abnormality. [id number] Electronically Signed: Elie Rodriguez MD at 8:32 EST ,
== END 2021-04-14 23:59 | disposition home or self-care (01) ==
LOC: OPBI 07:21
PROVIDERS: PCP Family Medicine; Visit Provider Obstetrics & Gynecology
DX: Z12.31 Encounter for screening mammogram for malignant neoplasm of breast (principal); Z80.3 Family history of malignant neoplasm of breast
CPT/HCPCS: 77063; 77067

== ENCOUNTER 2021-05-06 12:18 | Outpatient (CLI) | payer OTHER, SELFPAY ==
[2021-05-06 13:50] LABS: NATERA MAILED SPECIMEN
[2021-05-13 14:48] LABS: HPV APTIMA, High Risk Negative (Negative)
== END 2021-05-06 23:59 | disposition home or self-care (01) ==
LOC: PAVLAB 12:20
PROVIDERS: PCP Family Medicine; Visit Provider Obstetrics & Gynecology
DX: Z12.4 Encounter for screening for malignant neoplasm of cervix (principal)
CPT/HCPCS: 36415; 87624; 88175; G0145

== ENCOUNTER 2021-06-03 09:11 | Outpatient (CLI) | payer OTHER, SELFPAY ==
[2021-06-03 12:01] LABS: Absolute Lymphocyte Count 1.49 X10^3/uL (0.83-4.51); Absolute Neutrophil Count 4.2 X10^3/uL (2.0-7.7); Basophil# 0.01 X10^3/uL; Basophil% 0.2 % (0-1); Eosinophils% 1.6 % (0-5); Hematocrit 38.7 % (37-47); Hemoglobin 12.3 g/dL (12.0-15.0); Lymphocyte # 1.49 X10^3/ul (0.83-4.51); Lymphocyte % 23.7 % (19-41); Mean Corp Hgb Conc 31.8 g/dL (32-36); Mean Corpuscular Hgb 28.5 pg (27.0-32.0); Mean Corpuscular Volume 89.8 fL (81-99); Mean Platelet Vol. 12.3 fl (6.2-12.0); Monocyte# 0.47 X10^3/uL; Monocyte% 7.5 % (0-10); NRBC Flagged by Analyzer 0 % (0-5); Neutrophil % 66.8 % (47-70); Platelet Count 208 K/mm3 (150-450); RBC Distribution Width CV 13.4 % (11.6-14.6); Red Blood Count 4.31 M/mm3 (4.2-5.4); White Blood Count 6.3 K/mm3 (4.4-11.0)
[2021-06-03 12:18] LABS: Vitamin D,25 Hydroxy 45.2 ng/mL
[2021-06-03 12:22] LABS: Hemoglobin A1c 5.6 % (3.8-5.6)
[2021-06-03 12:24] LABS: ALB/GLOB Ratio 1.1 RATIO (0.9-2.4); AST(SGOT) 17 U/L (15-37); Alanine Aminotransfer ALT/SGPT 34 U/L (13-56); Albumin, Serum 3.6 g/dL (3.2-5.0); Alkaline Phosphatase 57 U/L (45-117); Anion Gap 6 (5-15); BUN 14 mg/dL (7-18); BUN/Creat Ratio 17.9 RATIO (10-20); Calcium,Total 8.6 mg/dL (8.5-10.1); Chloride 107 mmol/L (98-107); Creatinine, Serum 0.78 mg/dL (0.55-1.02); EST Glomerular Filtration Rate 84 mL/min (>60); Est Glom Filt Rate - Afr Amer 102 mL/min (>60); Globulin 3.4 g/dL (2.2-4.2); Glucose 112 mg/dL (74-106); Potassium 4.4 mmol/L (3.5-5.1); Sodium Level 140 mmol/L (136-145)
== END 2021-06-03 23:59 | disposition home or self-care (01) ==
LOC: BIMLAB 09:12
PROVIDERS: PCP Family Medicine; Referring Provider Family Medicine; Visit Provider Family Medicine
DX: J45.909 Unspecified asthma, uncomplicated (principal); E55.9 Vitamin D deficiency, unspecified; R73.02 Impaired glucose tolerance (oral)
CPT/HCPCS: 36415; 80053; 82306; 83036; 85025

== ENCOUNTER → 2021-07-14 | Outpatient (CLI) | payer OTHER, SELFPAY ==
[2021-07-14 12:29] LABS: Erythrocyte Sedimentation Rate 10 mm/hr (0-30)
[2021-07-14 13:03] LABS: Rheumatoid Factor < 10.0 IU/mL (<15)
[2021-07-15 15:26] LABS: ANTINUCLEAR ANTIBODIES DIRECT Negative (Negative)
== END | disposition home or self-care (01) ==
LOC: MFPLAB 10:33
PROVIDERS: PCP Family Medicine; Referring Provider Family Medicine; Visit Provider Family Medicine
DX: M25.50 Pain in unspecified joint (principal)
CPT/HCPCS: 36415; 85652; 86038; 86431

== ENCOUNTER 2021-07-20 14:36 | Outpatient (RCR) | payer OTHER, SELFPAY | END 2021-07-20 23:59 | LOC: NS 14:36 | PROVIDERS: PCP Family Medicine; Referring Provider Family Medicine; Visit Provider Family Medicine | DX: E66.9 Obesity, unspecified (principal); Z68.41 Body mass index [BMI] 40.0-44.9, adult | CPT/HCPCS: 97802 ==

== ENCOUNTER → 2021-09-08 | Outpatient (CLI) | payer OTHER, SELFPAY ==
[2021-09-08 12:04] LABS: Absolute Lymphocyte Count 1.67 X10^3/uL (0.83-4.51); Basophil# 0.01 X10^3/uL; Basophil% 0.2 % (0-1); Eosinophil# 0.15 X10^3/uL; Eosinophils% 2.4 % (0-5); Hematocrit 38.3 % (37-47); Hemoglobin 12.3 g/dL (12.0-15.0); Lymphocyte # 1.67 X10^3/ul (0.83-4.51); Lymphocyte % 26.3 % (19-41); Mean Corp Hgb Conc 32.1 g/dL (32-36); Mean Corpuscular Hgb 29.2 pg (27.0-32.0); Mean Platelet Vol. 11.4 fl (6.2-12.0); Monocyte% 7.9 % (0-10); NRBC Flagged by Analyzer 0 % (0-5); Neutrophil % 62.9 % (47-70); Platelet Count 258 K/mm3 (150-450); RBC Distribution Width CV 13.2 % (11.6-14.6); RBC Distribution Width SD 43.8 fl (35.1-43.9); Red Blood Count 4.21 M/mm3 (4.2-5.4); White Blood Count 6.4 K/mm3 (4.4-11.0)
[2021-09-08 12:25] LABS: Hemoglobin A1c 5.9 % (3.8-5.6)
[2021-09-08 12:30] LABS: Vitamin D,25 Hydroxy 38.2 ng/mL
[2021-09-08 12:38] LABS: AST(SGOT) 14 U/L (15-37); Alanine Aminotransfer ALT/SGPT 28 U/L (13-56); Albumin, Serum 3.4 g/dL (3.2-5.0); Alkaline Phosphatase 61 U/L (45-117); Anion Gap 5 (5-15); BUN 16 mg/dL (7-18); BUN/Creat Ratio 24.2 RATIO (10-20); Calcium,Total 8.9 mg/dL (8.5-10.1); Chloride 105 mmol/L (98-107); Cholesterol 241 mg/dL (200); Creatinine, Serum 0.66 mg/dL (0.55-1.02); EST Glomerular Filtration Rate 102 mL/min (>60); Est Glom Filt Rate - Afr Amer 123 mL/min (>60); Globulin 3.5 g/dL (2.2-4.2); Glucose 105 mg/dL (74-106); High Density Lipoprotein 53 mg/dL; Potassium 4.3 mmol/L (3.5-5.1); Protein, Total 6.9 g/dL (6.4-8.2); Sodium Level 138 mmol/L (136-145); T4 Free Direct 1.14 ng/dL (0.76-1.46); Thyroid Stim Hormone (TSH) 0.27 uIU/mL (0.358-3.74); Triglycerides 211 mg/dL; Very Low Density Lipoprotein 42 mg/dL (5-40)
== END | disposition home or self-care (01) ==
LOC: MFPLAB 11:15
PROVIDERS: PCP Family Medicine; Referring Provider Family Medicine; Visit Provider Family Medicine
DX: E78.5 Hyperlipidemia, unspecified (principal); C73 Malignant neoplasm of thyroid gland; E55.9 Vitamin D deficiency, unspecified; R73.02 Impaired glucose tolerance (oral)
CPT/HCPCS: 36415; 80053; 80061; 82306; 83036; 84439; 84443; 85025

== ENCOUNTER → 2021-12-03 | Outpatient (CLI) | payer OTHER, SELFPAY ==
[2021-12-03 14:01] LABS: T4 Free Direct 1.14 ng/dL (0.76-1.46)
== END | disposition home or self-care (01) ==
LOC: BIMLAB 09:32
PROVIDERS: PCP Family Medicine; Referring Provider Nurse Practitioner Family; Visit Provider Nurse Practitioner Family
DX: E89.0 Postprocedural hypothyroidism (principal)
CPT/HCPCS: 36415; 84439; 84443

== ENCOUNTER → 2021-12-29 | Outpatient (CLI) | payer OTHER, SELFPAY ==
[2021-12-29 12:56] LABS: AST(SGOT) 17 U/L (15-37); Alanine Aminotransfer ALT/SGPT 31 U/L (13-56); Albumin, Serum 3.6 g/dL (3.2-5.0); Alkaline Phosphatase 62 U/L (45-117); Anion Gap 6 (5-15); BUN 15 mg/dL (7-18); BUN/Creat Ratio 20.8 RATIO (10-20); Calcium,Total 8.8 mg/dL (8.5-10.1); Chloride 107 mmol/L (98-107); Cholesterol 231 mg/dL (200); Creatinine, Serum 0.72 mg/dL (0.55-1.02); EST Glomerular Filtration Rate 92 mL/min (>60); Est Glom Filt Rate - Afr Amer 112 mL/min (>60); Globulin 3.5 g/dL (2.2-4.2); Glucose 106 mg/dL (74-106); High Density Lipoprotein 57 mg/dL; Potassium 4.5 mmol/L (3.5-5.1); Protein, Total 7.1 g/dL (6.4-8.2); Sodium Level 139 mmol/L (136-145); Triglycerides 145 mg/dL; Very Low Density Lipoprotein 29 mg/dL (5-40)
[2021-12-29 12:58] LABS: Hemoglobin A1c 5.9 % (3.8-5.6)
== END | disposition home or self-care (01) ==
LOC: BIMLAB 08:45
PROVIDERS: PCP Family Medicine; Referring Provider Family Medicine; Visit Provider Family Medicine
DX: R73.02 Impaired glucose tolerance (oral) (principal); E55.9 Vitamin D deficiency, unspecified; E78.5 Hyperlipidemia, unspecified
CPT/HCPCS: 36415; 80053; 80061; 82306; 83036

== ENCOUNTER → 2022-03-01 | Outpatient (CLI) | payer OTHER, SELFPAY ==
[2022-03-01 13:13] LABS: T4 Free Direct 1.22 ng/dL (0.76-1.46); Thyroid Stim Hormone (TSH) 0.33 uIU/mL (0.358-3.74)
[2022-03-03 22:39] LABS: Anti-Thyroglobulin AB < 1.0 IU/mL (0.0-0.9); Thyroglobulin, Serum Qt. 0.1 ng/mL (1.5-38.5)
== END | disposition home or self-care (01) ==
LOC: BIMLAB 08:22
PROVIDERS: PCP Family Medicine; Referring Provider Internal Medicine Endocrinology, Diabetes & Metabolism; Visit Provider Internal Medicine Endocrinology, Diabetes & Metabolism
DX: C73 Malignant neoplasm of thyroid gland (principal); E89.0 Postprocedural hypothyroidism
CPT/HCPCS: 36415; 84432; 84439; 84443; 86800

== ENCOUNTER → 2022-03-17 | Outpatient (CLI) | payer OTHER, SELFPAY ==
[2022-03-17 12:22] LABS: Hematocrit 36.9 % (37-47); Hemoglobin 11.4 g/dL (12.0-15.0); Mean Corp Hgb Conc 30.9 g/dL (32-36); Mean Corpuscular Hgb 27.5 pg (27.0-32.0); Mean Corpuscular Volume 89.1 fL (81-99); Mean Platelet Vol. 11.8 fl (6.2-12.0); Platelet Count 251 K/mm3 (150-450); RBC Distribution Width CV 13.5 % (11.6-14.6); RBC Distribution Width SD 43.7 fl (35.1-43.9); Red Blood Count 4.14 M/mm3 (4.2-5.4); White Blood Count 5.2 K/mm3 (4.4-11.0)
[2022-03-17 12:54] LABS: Vitamin B12 422 pg/mL (211-911); Vitamin D,25 Hydroxy 44.1 ng/mL
[2022-03-17 14:00] LABS: Hemoglobin A1c 5.7 % (3.8-5.6)
[2022-03-17 14:07] LABS: ALB/GLOB Ratio 0.9 RATIO (0.9-2.4); AST(SGOT) 16 U/L (15-37); Alanine Aminotransfer ALT/SGPT 29 U/L (13-56); Albumin, Serum 3.3 g/dL (3.2-5.0); Alkaline Phosphatase 62 U/L (45-117); Anion Gap 12 (5-15); BUN 14 mg/dL (7-18); BUN/Creat Ratio 17.8 RATIO (10-20); Calcium,Total 8.4 mg/dL (8.5-10.1); Chloride 105 mmol/L (98-107); Cholesterol 214 mg/dL (200); Creatinine, Serum 0.78 mg/dL (0.55-1.02); EST Glomerular Filtration Rate 84 mL/min (>60); Est Glom Filt Rate - Afr Amer 101 mL/min (>60); Ferritin 4 ng/mL (8-252); Globulin 3.6 g/dL (2.2-4.2); Glucose 126 mg/dL (74-106); High Density Lipoprotein 57 mg/dL; Iron 31 ug/dL (50-170); Magnesium 1.9 mg/dL (1.6-2.6); Potassium 4.2 mmol/L (3.5-5.1); Protein, Total 6.9 g/dL (6.4-8.2); Sodium Level 139 mmol/L (136-145); Thyroid Stim Hormone (TSH) 0.13 uIU/mL (0.358-3.74); Triglycerides 205 mg/dL; Very Low Density Lipoprotein 41 mg/dL (5-40)
[2022-03-22 16:09] LABS: Vitamin B1, Thiamine 146.4 nmol/L (66.5-200.0)
[2022-03-22 20:16] LABS: Cotinine Screen Blood <1.0 ng/mL (.); Nicotine Blood <1.0 ng/mL (.); Zinc, Plasma or Serum 81 ug/dL (44-115)
== END | disposition home or self-care (01) ==
LOC: BIMLAB 08:24
PROVIDERS: PCP Family Medicine; Referring Provider Registered Nurse Nephrology; Visit Provider Registered Nurse Nephrology
DX: E89.0 Postprocedural hypothyroidism (principal); E66.01 Morbid (severe) obesity due to excess calories; Z68.41 Body mass index [BMI] 40.0-44.9, adult; E55.9 Vitamin D deficiency, unspecified; R73.03 Prediabetes
CPT/HCPCS: 36415; 80053; 80061; 80323; 82306; 82607; 82728; 82746; 83036; 83540; 83735; 84425; 84443; 84630; 85027; G0480

== ENCOUNTER → 2022-04-07 | Outpatient (CLI) | payer OTHER, SELFPAY ==
[2022-04-07 12:14] LABS: Absolute Lymphocyte Count 1.65 X10^3/uL (0.83-4.51); Absolute Neutrophil Count 3.6 X10^3/uL (2.0-7.7); Basophil# 0.01 X10^3/uL; Basophil% 0.2 % (0-1); Eosinophil# 0.17 X10^3/uL; Eosinophils% 2.9 % (0-5); Hematocrit 37.6 % (37-47); Hemoglobin 11.6 g/dL (12.0-15.0); Lymphocyte # 1.65 X10^3/ul (0.83-4.51); Lymphocyte % 27.9 % (19-41); Mean Corp Hgb Conc 30.9 g/dL (32-36); Mean Corpuscular Hgb 27.6 pg (27.0-32.0); Mean Corpuscular Volume 89.3 fL (81-99); Mean Platelet Vol. 11.8 fl (6.2-12.0); Monocyte# 0.43 X10^3/uL; Monocyte% 7.3 % (0-10); NRBC Flagged by Analyzer 0 % (0-5); Neutrophil # 3.63 X10^3/uL (2.7-7.7); Neutrophil % 61.2 % (47-70); Platelet Count 257 K/mm3 (150-450); RBC Distribution Width CV 14.2 % (11.6-14.6); RBC Distribution Width SD 46.1 fl (35.1-43.9); Red Blood Count 4.21 M/mm3 (4.2-5.4); White Blood Count 5.9 K/mm3 (4.4-11.0)
[2022-04-07 12:36] LABS: Ferritin 6 ng/mL (8-252); Iron 153 ug/dL (50-170); Iron Binding Capacity,Total 486 ug/dL (250-450)
== END | disposition home or self-care (01) ==
LOC: MFPLAB 10:42
PROVIDERS: PCP Family Medicine; Referring Provider Family Medicine; Visit Provider Family Medicine
DX: E61.1 Iron deficiency (principal)
CPT/HCPCS: 36415; 82728; 83540; 83550; 85025

== ENCOUNTER → 2022-06-06 | Outpatient (CLI) | payer OTHER, SELFPAY ==
--- NOTE | 2022-06-06 09:58 | BI_ITS ---
MAMMOGRAPHY - BILATERAL SCREENING REASON FOR EXAM: Female, 47 years old. Routine annual screening examination. PERTINENT HISTORY: Aunts with breast cancer. TECHNIQUE: Digital bilateral breast stephanie (3D mammographic acquisition) in the CC and MLO projections. 2-D mediolateral oblique (MLO) and craniocaudad (CC) views of both breasts were obtained. CAD: Full Field Digital Mammography with Computer Added Detection was performed. COMPARISON: Comparison is made with prior study dated April 14, 2021 and April 13, 2020. FINDINGS: Breast Composition: The breasts are heterogeneously dense, which may obscure small masses. There are no dominant masses or suspicious calcifications. Stable asymmetry of breast tissue with more breast tissue is seen in the upper deep lateral aspect of the left breast as compared to the right side. No other significant abnormalities are identified. There has been no significant change since the prior study. BI/SCRN MAMM (CAD)W/STEPHANIE BILAT IMPRESSION: Stable bilateral screening mammogram. Yearly follow-up mammogram recommended. (A) ASSESSMENT CATEGORY: BIRADS Category 2: Benign. A letter regarding these results will be sent to the patient by the facility within 30 days. Approximately 10% of breast cancers are not detected by mammography. A normal mammogram should not delay biopsy of a clinically suspicious abnormality. [id number] Electronically Signed: Elie Rodriguez MD at 12:22 EDT ,
== END | disposition home or self-care (01) ==
LOC: OPBI 09:57
PROVIDERS: PCP Family Medicine; Referring Provider Obstetrics & Gynecology; Visit Provider Obstetrics & Gynecology
DX: Z12.31 Encounter for screening mammogram for malignant neoplasm of breast (principal)
CPT/HCPCS: 77063; 77067

== ENCOUNTER → 2022-07-13 | Outpatient (CLI) | payer OTHER, SELFPAY ==
[2022-07-13 12:31] LABS: Hematocrit 38.9 % (37-47); Hemoglobin 12.2 g/dL (12.0-15.0); Mean Corp Hgb Conc 31.4 g/dL (32-36); Mean Corpuscular Hgb 28.4 pg (27.0-32.0); Mean Corpuscular Volume 90.7 fL (81-99); Mean Platelet Vol. 11.7 fl (6.2-12.0); Platelet Count 273 K/mm3 (150-450); RBC Distribution Width CV 13.8 % (11.6-14.6); RBC Distribution Width SD 45.6 fl (35.1-43.9); Red Blood Count 4.29 M/mm3 (4.2-5.4); White Blood Count 4.8 K/mm3 (4.4-11.0)
[2022-07-13 13:00] LABS: Vitamin B12 653 pg/mL (211-911)
[2022-07-13 13:34] LABS: ALB/GLOB Ratio 1.1 RATIO (0.9-2.4); AST(SGOT) 17 U/L (15-37); Alanine Aminotransfer ALT/SGPT 25 U/L (13-56); Albumin, Serum 3.6 g/dL (3.2-5.0); Alkaline Phosphatase 66 U/L (45-117); Anion Gap 11 (5-15); BUN 14 mg/dL (7-18); Calcium,Total 8.9 mg/dL (8.5-10.1); Chloride 109 mmol/L (98-107); Creatinine, Serum 0.64 mg/dL (0.55-1.02); EST Glomerular Filtration Rate 106 mL/min (>60); Est Glom Filt Rate - Afr Amer 129 mL/min (>60); Ferritin 14 ng/mL (8-252); Globulin 3.3 g/dL (2.2-4.2); Glucose 110 mg/dL (74-106); Iron 28 ug/dL (50-170); Magnesium 2.1 mg/dL (1.6-2.6); Potassium 4.1 mmol/L (3.5-5.1); Protein, Total 6.9 g/dL (6.4-8.2); Sodium Level 143 mmol/L (136-145)
[2022-07-15 08:12] LABS: Zinc, Plasma or Serum 70 ug/dL (44-115)
== END | disposition home or self-care (01) ==
LOC: BIMLAB 11:47
PROVIDERS: PCP Family Medicine; Referring Provider Registered Nurse Nephrology; Visit Provider Registered Nurse Nephrology
DX: E03.9 Hypothyroidism, unspecified (principal); E66.01 Morbid (severe) obesity due to excess calories; Z68.41 Body mass index [BMI] 40.0-44.9, adult; E61.7 Deficiency of multiple nutrient elements; K44.9 Diaphragmatic hernia without obstruction or gangrene
CPT/HCPCS: 36415; 80053; 82607; 82728; 82746; 83540; 83735; 84630; 85027

== ENCOUNTER → 2022-08-04 | Outpatient (CLI) | payer OTHER, SELFPAY ==
[2022-08-04 13:09] LABS: T4 Free Direct 1.29 ng/dL (0.76-1.46); Thyroid Stim Hormone (TSH) 0.02 uIU/mL (0.358-3.74)
== END | disposition home or self-care (01) ==
LOC: BIMLAB 11:15
PROVIDERS: PCP Family Medicine; Referring Provider Internal Medicine Endocrinology, Diabetes & Metabolism; Visit Provider Internal Medicine Endocrinology, Diabetes & Metabolism
DX: E89.0 Postprocedural hypothyroidism (principal)
CPT/HCPCS: 36415; 84439; 84443

== ENCOUNTER → 2022-10-25 | Outpatient (CLI) | payer OTHER, SELFPAY ==
[2022-10-25 12:28] LABS: Absolute Lymphocyte Count 1.67 X10^3/uL (0.83-4.51); Absolute Neutrophil Count 3.1 X10^3/uL (2.0-7.7); Basophil# 0.01 X10^3/uL; Basophil% 0.2 % (0-1); Eosinophil# 0.19 X10^3/uL; Eosinophils% 3.6 % (0-5); Hematocrit 38.5 % (37-47); Hemoglobin 12.3 g/dL (12.0-15.0); Lymphocyte # 1.67 X10^3/ul (0.83-4.51); Lymphocyte % 31.7 % (19-41); Mean Corp Hgb Conc 31.9 g/dL (32-36); Mean Corpuscular Hgb 29.6 pg (27.0-32.0); Mean Corpuscular Volume 92.8 fL (81-99); Mean Platelet Vol. 12.6 fl (6.2-12.0); Monocyte# 0.31 X10^3/uL; Monocyte% 5.9 % (0-10); NRBC Flagged by Analyzer 0 % (0-5); Neutrophil # 3.06 X10^3/uL (2.7-7.7); Neutrophil % 58.2 % (47-70); Platelet Count 237 K/mm3 (150-450); RBC Distribution Width CV 13.2 % (11.6-14.6); RBC Distribution Width SD 45.4 fl (35.1-43.9); Red Blood Count 4.15 M/mm3 (4.2-5.4); White Blood Count 5.3 K/mm3 (4.4-11.0)
[2022-10-25 12:53] LABS: Hemoglobin A1c 5.3 % (3.8-5.6)
[2022-10-25 13:05] LABS: ALB/GLOB Ratio 1.1 RATIO (0.9-2.4); AST(SGOT) 19 U/L (15-37); Alanine Aminotransfer ALT/SGPT 27 U/L (13-56); Albumin, Serum 3.5 g/dL (3.2-5.0); Alkaline Phosphatase 66 U/L (45-117); Anion Gap 5 (5-15); BUN 14 mg/dL (7-18); BUN/Creat Ratio 20.7 RATIO (10-20); Calcium,Total 8.6 mg/dL (8.5-10.1); Chloride 107 mmol/L (98-107); Cholesterol 190 mg/dL (200); Creatinine, Serum 0.68 mg/dL (0.55-1.02); EST Glomerular Filtration Rate 99 mL/min (>60); Est Glom Filt Rate - Afr Amer 120 mL/min (>60); Globulin 3.2 g/dL (2.2-4.2); Glucose 92 mg/dL (74-106); High Density Lipoprotein 55 mg/dL; Protein, Total 6.7 g/dL (6.4-8.2); Sodium Level 140 mmol/L (136-145); Triglycerides 115 mg/dL; Very Low Density Lipoprotein 23 mg/dL (5-40)
== END | disposition home or self-care (01) ==
LOC: MFPLAB 11:16
PROVIDERS: PCP Family Medicine; Visit Provider Family Medicine
DX: E78.5 Hyperlipidemia, unspecified (principal); E55.9 Vitamin D deficiency, unspecified; R73.02 Impaired glucose tolerance (oral)
CPT/HCPCS: 36415; 80053; 80061; 82306; 83036; 85025

== ENCOUNTER 2023-02-05 13:39 | Inpatient (IN) | payer OTHER, SELFPAY ==
[2023-02-05 13:40] VITALS: BP 130/103; PULSE 110; RESP 18; TEMP 35.9; O2SAT 99
[2023-02-05 13:49] LABS: Mucous, Urine 0 SEEN /hpf (<or=2+)
[2023-02-05 14:00] LABS: Color, Urine Amber (Yellow); Glucose, Dipstick Normal (Normal); Ketone-Dipstick 50 mg/dl (Negative); Leukocyte Esterase-Dipstick 100 /ul (Negative); Nitrite-Dipstick Positive (Negative); Occult Blood-Urine 250 /ul (Negative); Protein-Dipstick 30 mg/dl (Negative); Specific Gravity, Urine 1.025 (1.002-1.030); Urine Clarity Sl. Cloudy (Clear); Urine Urobilinogen 8 mg/dl (Normal)
[2023-02-05 14:10] LABS: Urine Bilirubin Dipstick 6 mg/dL (Negative)
[2023-02-05 14:15] LABS: Bacteria 1+ /hpf (None Seen); Red Blood Cells-Urine 5-10 SEEN /hpf (0-5); Squamous Epithelial Cells - UA 0-5 SEEN /hpf (5-10); White Blood Cells 0-5 SEEN /hpf (0-5)
[2023-02-05] MEDS: 0.9% Normal Saline (1000mL) 1,000 ML 999 ML IV (14:17)
[2023-02-05] MEDS: Mag Hydrox/Al Hydrox/Simeth 30 ML UDC PO (14:18)
[2023-02-05 14:23] LABS: Absolute Lymphocyte Count 0.99 X10^3/uL (0.83-4.51); Absolute Neutrophil Count 5.7 X10^3/uL (2.0-7.7); Basophil# 0.01 X10^3/uL; Basophil% 0.1 % (0-1); Eosinophil# 0.08 X10^3/uL; Eosinophils% 1.1 % (0-5); Hematocrit 39.8 % (37-47); Lymphocyte # 0.99 X10^3/ul (0.83-4.51); Lymphocyte % 13.6 % (19-41); Mean Corp Hgb Conc 32.7 g/dL (32-36); Mean Corpuscular Hgb 29.4 pg (27.0-32.0); Mean Platelet Vol. 11.8 fl (6.2-12.0); Monocyte# 0.47 X10^3/uL; Monocyte% 6.5 % (0-10); NRBC Flagged by Analyzer 0 % (0-5); Neutrophil % 78.4 % (47-70); Platelet Count 217 K/mm3 (150-450); RBC Distribution Width CV 13.1 % (11.6-14.6); RBC Distribution Width SD 43.3 fl (35.1-43.9); Red Blood Count 4.42 M/mm3 (4.2-5.4); White Blood Count 7.3 K/mm3 (4.4-11.0)
--- NOTE | 2023-02-05 14:54 | ED.VIS.GI ---
HPI <ROBERT Vines - Last Filed: 02/05/23 19:32> HPI - GI History of Present Illness Chief Complaint: Abd Pain Narrative Narrative: Patient presenting today with nausea and epigastric abdominal pain that she has had intermittently since last Monday. She reports that the pain is constant and sharp but is worsened by eating and drinking. She reports a history of gastric sleeve surgery in May of this year by Dr. Fischer at [facility]. She denies a history of gastric ulcers, pancreatitis, or alcohol use. 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 She denies fever, chills, and vomiting. [facility] <ROBERT Vines - Last Filed: 02/05/23 19:32> [facility] Medical History Alcohol use Asthma Non-smoker Postoperative primary hypothyroidism Thyroid cancer Thyroid disease Wears contact lenses Home Medications multivitamin,[id number] (Complete Multivitamin tablet) 1 tab PO DAILY supplement 05/02/18 [History Last Taken Unknown] cholecalciferol (vitamin D3) 50 mcg (2,000 unit) capsule 50 mcg PO DAILY supplement 05/04/20 [History Last Taken Unknown] albuterol sulfate 90 mcg/actuation breath activated powder inhaler,sensor (Proair Digihaler) 2 inh inhalation Q6H asthma 08/14/20 [History Last Taken Unknown] biotin 5,000 mcg sublingual tablet 5,000 mcg sublingual DAILY vitamin 06/13/22 [History Last Taken 02/04/23] cetirizine 10 mg capsule (All Day Allergy (cetirizine)) 10 mg PO DAILY allergies 06/13/22 [History Last Taken Unknown] mecobalamin (vitamin B12) 500 mcg chewable tablet 500 mcg PO DAILY vitamin 06/13/22 [History Last Taken Unknown] levothyroxine 150 mcg tablet 150 mcg PO .M-F thyroid #90 tabs 08/04/22 [Rx Last Taken Unknown] ascorbic acid (vitamin C) 500 mg tablet (Vitamin C) 500 mg PO DAILY vitamin 02/05/23 [History Last Taken Unknown] calcium citrate 315 mg calcium-vitamin D3 6.25 mcg (250 unit) tablet (Citracal + Vitamin D Maximum) 2 tab PO TID vitamin 02/05/23 [History Last Taken Unknown] ferrous sulfate 325 mg (65 mg iron) tablet (Feosol) 650 mg PO QODAY iron deficiency 02/05/23 [History Last Taken Unknown] zinc 50 mg tablet 50 mg PO DAILY vitamin 02/05/23 [History Last Taken Unknown] Allergy/AdvReac Type Severity Reaction Status Date / Time No Known Allergies Allergy Verified 02/05/23 13:40 Surgical History H/O gastric sleeve H/O total thyroidectomy with radical neck dissection History of ankle surgery History of dilation and curettage History of ovarian cystectomy History of tonsillectomy Hx of appendectomy Social History Smoking Status: Never smoker alcohol intake: never substance use type: does not use caffeine: Yes what type of physical activity do you participate in: walking seatbelt use: always do you feel safe at home: Yes 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 [employer] <ROBERT Vines - Last Filed: 02/05/23 19:32> ROS ED Constitutional Constitutional ED: Denies chills or fever(s) Cardiovascular Cardiovascular: Denies chest pain Respiratory/Chest Respiratory/Chest: Denies cough or dyspnea Gastrointestinal Gastrointestinal: Reports abdominal pain and nausea; Denies constipation, diarrhea or vomiting Genitourinary Genitourinary ED: Denies dysuria, hematuria or urinary frequency Musculoskeletal Musculoskeletal: Denies arthralgias or myalgias Integumentary Denies rash Neurologic Neurologic: Denies weakness EXAM <ROBERT Vines - Last Filed: 02/05/23 19:32> Physical Exam Const Vital Signs: 02/05/23 13:40 02/05/23 16:53 Temperature 96.7 F L 98.3 F Temperature Source Temporal Oral Pulse Rate 110 H 93 Respiratory Rate 18 16 Blood Pressure 130/103 H 145/87 H Blood Pressure Mean 112 106 Pulse Ox 99 96 Oxygen Delivery Method Room Air Room Air Positive well nourished, well developed and no apparent distress General Appearance ED: well developed HEENT Reports normocephalic and head/scalp atraumatic Mouth ED: Yes moist mucous membranes normal Eyes PERRL and EOMs intact bilaterally Neck full ROM and supple Chest Wall inspection of chest normal Resp normal respiratory effort and clear to auscultation bilaterally Cardio regular rate and regular rhythm GI soft to palpation, non-distended and no masses GI Narrative: Epigastric tenderness to palpation, no rigidity, guarding, or peritoneal signs. Negative Block sign, no pain to McBurney's point. Back/Spine normal ROM and normal to inspection Extremity normal to inspection and full ROM Neuro oriented x3, CN's II-XII intact bilaterally, moves all extremities, no focal motor deficits and no sensory deficits noted Sensorium / Orientation: awake and alert Psych mental status grossly normal and thought process normal Skin no rashes or lesions noted and no wounds <Dr. Rell Seymour DO - Last Filed: 02/05/23 22:23> Physical Exam Const Vital Signs: 02/05/23 13:40 02/05/23 16:53 Temperature 96.7 F L 98.3 F Temperature Source Temporal Oral Pulse Rate 110 H 93 Respiratory Rate 18 16 Blood Pressure 130/103 H 145/87 H Blood Pressure Mean 112 106 Pulse Ox 99 96 Oxygen Delivery Method Room Air Room Air [facility] <ROBERT Vines - Last Filed: 02/05/23 19:32> [facility] Narrative Medical decision making narrative: Patient presenting with epigastric abdominal pain that she has had over the past week. Pain is worsened when she eats. She does have tenderness to her epigastric region, slight right upper quadrant tenderness but negative Block sign. She is nontoxic-appearing and in no acute distress. Differentials include gastritis, PUD, pancreatitis, cholecystitis. She has been given IV fluids. Labs to be obtained to rule out leukocytosis, anemia, electrolyte abnormality, SHWETA, UTI, pancreatitis, and hepatobiliary etiology. CBC is unremarkable. CMP shows a total bilirubin of 3.2, AST 100, ALT 221, alkaline phosphatase 372, lipase 3086. Urinary culture will be obtained, she is not experiencing any urinary symptoms. CT of the abdomen and pelvis obtained and shows trace. Cholecystic fluid and mild enlargement of the pancreatic head. I did speak with Dr. Orozco who suspects that she has gallstone pancreatitis and recommends talking with Dr. Irby. Attending did speak with Dr. Irby, he is on board with seeing patient, I will speak with the hospitalist. Given we do not have ultrasound here right now, this can be obtained on a nonemergent basis. Patient will be admitted in stable condition and is comfortable with plan. Lab Data Attestation: I reviewed the patient's lab results. Labs: Laboratory Results - last 24 hr 02/05/23 02/05/23 13:45 14:15 WBC 7.3 RBC 4.42 Hgb 13.0 Hct 39.8 MCV 90.0 MCH 29.4 MCHC 32.7 RDW Std Deviation 43.3 RDW Coeff of Mihir 13.1 Plt Count 217 MPV 11.8 Immature Gran % (Auto) 0.300 Neut % (Auto) 78.4 H Lymph % (Auto) 13.6 L Irion % (Auto) 6.5 Eos % (Auto) 1.1 Baso % (Auto) 0.1 Absolute Neuts (auto) 5.7 Absolute Lymphs (auto) 0.99 Nucleated RBC % 0 Sodium 138 Potassium 3.9 Chloride 106 Carbon Dioxide 27.0 Anion Gap 5 BUN 14 Creatinine 0.75 Est GFR (MDRD) Af Amer 106 Est GFR (MDRD) Non-Af 88 BUN/Creatinine Ratio 18.6 Glucose 107 H Calcium 9.6 Total Bilirubin 3.20 H AST 100 H ALT 221 H Alkaline Phosphatase 372 H Total Protein 7.0 Albumin 3.2 Globulin 3.8 Albumin/Globulin Ratio 0.8 L Lipase 3086 H Urine Color Adrianne Urine Clarity Sl. Cloudy Urine pH 5.0 Ur Specific [place] 1.025 Urine Protein 30 H Urine Glucose (UA) Normal Urine Ketones 50 H Urine Occult Blood 250 H Urine Nitrite Positive H Urine Bilirubin 6 H Urine Urobilinogen 8 H Ur Leukocyte Esterase 100 H Urine RBC 5-10 SEEN Urine WBC 0-5 SEEN Ur Squamous Epith Cells 0-5 SEEN Urine Bacteria 1+ Urine Mucus 0 SEEN Radiography Diagnostic Testing: Clinical Impression(s) from Imaging Studies Abdomen/Pelvis CT 02/05/23 15:17 IMPRESSION: 1. Trace pericholecystic fluid. Correlate clinically. Consider gallbladder ultrasound if clinically warranted. 2. Mild enlargement of the pancreatic head and uncinate without discrete mass. Consider follow-up multiphase CT or MRI of the pancreas. 3. Uterine fibroids. Electronically Signed: Tamika Norris MD at 16:33 EST Reading Location ID and State: [id number] / Tel , Service support , <Dr. Rell Seymour, DO - Last Filed: 02/05/23 22:23> [facility] Lab Data Labs: Laboratory Results - last 24 hr 02/05/23 02/05/23 13:45 14:15 WBC 7.3 RBC 4.42 Hgb 13.0 Hct 39.8 MCV 90.0 MCH 29.4 MCHC 32.7 RDW Std Deviation 43.3 RDW Coeff of Mihir 13.1 Plt Count 217 MPV 11.8 Immature Gran % (Auto) 0.300 Neut % (Auto) 78.4 H Lymph % (Auto) 13.6 L Irion % (Auto) 6.5 Eos % (Auto) 1.1 Baso % (Auto) 0.1 Absolute Neuts (auto) 5.7 Absolute Lymphs (auto) 0.99 Nucleated RBC % 0 Sodium 138 Potassium 3.9 Chloride 106 Carbon Dioxide 27.0 Anion Gap 5 BUN 14 Creatinine 0.75 Est GFR (MDRD) Af Amer 106 Est GFR (MDRD) Non-Af 88 BUN/Creatinine Ratio 18.6 Glucose 107 H Calcium 9.6 Total Bilirubin 3.20 H AST 100 H ALT 221 H Alkaline Phosphatase 372 H Total Protein 7.0 Albumin 3.2 Globulin 3.8 Albumin/Globulin Ratio 0.8 L Lipase 3086 H Urine Color Adrianne Urine Clarity Sl. Cloudy Urine pH 5.0 Ur Specific [place] 1.025 Urine Protein 30 H Urine Glucose (UA) Normal Urine Ketones 50 H Urine Occult Blood 250 H Urine Nitrite Positive H Urine Bilirubin 6 H Urine Urobilinogen 8 H Ur Leukocyte Esterase 100 H Urine RBC 5-10 SEEN Urine WBC 0-5 SEEN Ur Squamous Epith Cells 0-5 SEEN Urine Bacteria 1+ Urine Mucus 0 SEEN Radiography Diagnostic Testing: Clinical Impression(s) from Imaging Studies Abdomen/Pelvis CT 02/05/23 15:17 IMPRESSION: 1. Trace pericholecystic fluid. Correlate clinically. Consider gallbladder ultrasound if clinically warranted. 2. Mild enlargement of the pancreatic head and uncinate without discrete mass. Consider follow-up multiphase CT or MRI of the pancreas. 3. Uterine fibroids. Electronically Signed: Tamika Norris MD at 16:33 EST Reading Location ID and State: [id number] / Tel , Service support , Treatment and Re-Evaluation :: I have personally performed a face to face assessment of the patient and have reviewed the KEO Note. I performed a substantive portion of the visit including all aspects of the following. My riley findings include: History: Patient presents with abdominal pain that has been getting progressively worse over the past week. Patient states her pain has been waxing and waning. Patient describes the pain as sharp. Patient states the pain is over the epigastric area. Patient states it is worse with eating. Patient denies any nausea or vomiting. Patient denies any diarrhea, melena, or hematochezia. Patient denies any urinary complaints. Patient states her last menstrual period was 3 weeks ago. Patient states she has a history of a gastric sleeve procedure. Exam: Vital signs are stable. Patient is afebrile. Patient is in no acute distress. Oral mucosa is pink and moist. Neck is supple. Trachea is midline. There is no JVD. Heart was regular and slightly tachycardic. Lungs are clear and equal bilateral. Abdomen is soft. Bowel sounds are normal. There is epigastric and right upper quadrant tenderness. There is no rebound or guarding noted. Cranial nerves II through XII are intact. There are no focal motor or sensory deficits noted. Medical Decision Making: Differential diagnosis includes gastritis, peptic ulcer disease, duodenal ulcer, cholecystitis, cholelithiasis, pancreatitis, bowel obstruction, perforation, urinary tract infection, and pyelonephritis. CBC will be obtained to assess for leukocytosis and anemia. Comprehensive metabolic profile will be obtained to assess for hepatic function, renal function, and electrolyte abnormality. Lipase will be obtained to assess for pancreatitis. Urinalysis will be obtained to assess for urinary tract infection and hematuria. CT scan of the abdomen pelvis will be obtained to assess for bowel obstruction, perforation, cholelithiasis, cholecystitis. Patient was given IV fluids, morphine, and Zofran. CBC was reviewed and was within normal limits. Comprehensive metabolic profile was reviewed. Total bilirubin was elevated at 3.2, direct bilirubin was 2.31. AST was slightly elevated at 100. ALT was 221. Alkaline phosphatase was 372. Lipase was reviewed and was elevated at 3086. Urinalysis was reviewed. Urine bilirubin was 6 and urine urobilinogen was 8. Leukocyte esterase was 100 with positive nitrates. There is 0-5 white blood cells and 0-5 epithelial cells however. Patient was started on Zosyn. Case was discussed with Dr. Orozco. He was in to evaluate the patient. He is agreeable with keeping the patient here. He did recommend consulting Dr. Irby from gastroenterology. Case was discussed with Dr. Irby. He will be able to see the patient and perform ERCP. Case was discussed with the hospitalist for admission. Patient understands and is agreeable with the plan. All questions were answered. Discharge Plan Triage Chief Complaint: Abd Pain ED Midlevel Provider: Priscilla Alejandre ED Provider: Rell Seymour Dx/Rx/DC Orders Clinical Impression: Acute gallstone pancreatitis, Cholecystitis Primary Care Provider: Sage Rosa Disposition Disposition: Acute Care Hospital [facility] Discharge Date/Time: 02/05/23 19:26
[2023-02-05 14:55] LABS: ALB/GLOB Ratio 0.8 RATIO (0.9-2.4); AST(SGOT) 100 U/L (15-37); Alanine Aminotransfer ALT/SGPT 221 U/L (13-56); Albumin, Serum 3.2 g/dL (3.2-5.0); Alkaline Phosphatase 372 U/L (45-117); Anion Gap 5 (5-15); BUN 14 mg/dL (7-18); BUN/Creat Ratio 18.6 RATIO (10-20); Calcium,Total 9.6 mg/dL (8.5-10.1); Chloride 106 mmol/L (98-107); Creatinine, Serum 0.75 mg/dL (0.55-1.02); EST Glomerular Filtration Rate 88 mL/min (>60); Est Glom Filt Rate - Afr Amer 106 mL/min (>60); Globulin 3.8 g/dL (2.2-4.2); Glucose 107 mg/dL (74-106); Lipase 3086 U/L (13-75); Potassium 3.9 mmol/L (3.5-5.1); Sodium Level 138 mmol/L (136-145)
--- NOTE | 2023-02-05 15:17 | CT_ITS ---
EXAM: CT ABDOMEN AND PELVIS WITH INTRAVENOUS CONTRAST CLINICAL INDICATION: abdominal pain TECHNIQUE: Helically acquired images were obtained of the abdomen and pelvis with intravenous contrast. This CT exam was performed using one or more of the following dose reduction techniques: automated exposure control, adjustment of the mA and/or kV according to patient size, and/or use of iterative reconstruction technique. CONTRAST: IV 100mL Isovue-370 COMPARISON: No relevant prior studies available. FINDINGS: LOWER THORAX: Unremarkable. Lung bases are clear. No cardiomegaly. No significant pericardial effusion. ABDOMEN: LIVER: Unremarkable. Homogeneous. No focal mass. GALLBLADDER AND BILE DUCTS: Trace pericholecystic fluid. No intra- or extrahepatic biliary ductal dilation. PANCREAS: Mild enlargement of the pancreatic head and uncinate. No discrete mass. SPLEEN: Unremarkable. Normal size without focal cystic or solid mass. ADRENALS: Unremarkable. No nodules. KIDNEYS AND URETERS: Unremarkable. Normal renal size and position. No hydronephrosis. STOMACH AND BOWEL: Unremarkable. No stomach or bowel distention. No focal inflammatory change. PELVIS: APPENDIX: No evidence of acute appendicitis. BLADDER: Unremarkable. REPRODUCTIVE: 4.4 x 3.9 cm uterine soft tissue lesion projecting into the endometrial cavity suspicious for submucosal fibroid. 4.1 cm intramural fibroid anterior-inferiorly. Additional smaller lesions are noted. Bilateral ovarian cysts measuring up to 3.1 cm. ABDOMEN and PELVIS: INTRAPERITONEAL SPACE: Unremarkable. No ascites or other fluid collection. No free air. BONES/JOINTS: Unremarkable. No suspicious lytic or blastic abnormality. SOFT TISSUES: Unremarkable. No discrete abdominal or pelvic wall hernia. VASCULATURE: Unremarkable. Abdominal aorta is normal in caliber. LYMPH NODES: Unremarkable. No enlarged lymph nodes. CT/Abdomen/Pelvis W IV Cont ONLY IMPRESSION: 1. Trace pericholecystic fluid. Correlate clinically. Consider gallbladder ultrasound if clinically warranted. 2. Mild enlargement of the pancreatic head and uncinate without discrete mass. Consider follow-up multiphase CT or MRI of the pancreas. 3. Uterine fibroids. Electronically Signed: Tamika Norris MD at 16:33 EST Reading Location ID and State: [id number] / Tel , Service support ,
[2023-02-05 16:53] VITALS: BP 145/87; PULSE 93; RESP 16; TEMP 36.8; O2SAT 96
--- NOTE | 2023-02-05 17:14 | HP.PCM.HOS_ITS ---
[facility] - General General Date of Admission: 02/05/23 Date of Service: 02/05/23 Chief Complaint: Epigastric/right upper quadrant abdominal pain for about 1 week. HPI Narrative MICHAEL CHOUDHURY, is a 47 F with no prior history of hepatobiliary or pancreatic disease came to ED with epigastric abdominal pain for about 1 week. She described her pain in epigastric region, spontaneous onset, intermittent, colicky in nature, episodic each episode lasting for about 15 to 20 minutes but pain never goes away. Frequency and duration of pain increased over last 1 week more so over last 2 days. Patient felt cold but denies any fever. She is still any food or drink makes her pain worse. She denies alcohol or smoking history. In ED, she had CT abdomen pelvis which shows trace pericholecystic fluid, mild enlargement of pancreatic head and uncinate process without discrete mass. Lipase enzyme is very high, 3086 along with total bilirubin, transaminases and alkaline phosphatase. General surgery and GI are consulted. General surgeon already saw the patient. [facility] Medical History Alcohol use Asthma Non-smoker Postoperative primary hypothyroidism Thyroid cancer Thyroid disease Wears contact lenses Home Medications multivitamin,[id number] (Complete Multivitamin tablet) 1 tab PO DAILY supplement 05/02/18 [History Last Taken Unknown] cholecalciferol (vitamin D3) 50 mcg (2,000 unit) capsule 50 mcg PO DAILY supplement 05/04/20 [History Last Taken Unknown] albuterol sulfate 90 mcg/actuation breath activated powder inhaler,sensor (Proair Digihaler) 2 inh inhalation Q6H asthma 08/14/20 [History Last Taken Unknown] biotin 5,000 mcg sublingual tablet 5,000 mcg sublingual DAILY vitamin 06/13/22 [History Last Taken 02/04/23] cetirizine 10 mg capsule (All Day Allergy (cetirizine)) 10 mg PO DAILY allergies 06/13/22 [History Last Taken Unknown] mecobalamin (vitamin B12) 500 mcg chewable tablet 500 mcg PO DAILY vitamin 06/13/22 [History Last Taken Unknown] levothyroxine 150 mcg tablet 150 mcg PO .M-F thyroid #90 tabs 08/04/22 [Rx Last Taken Unknown] ascorbic acid (vitamin C) 500 mg tablet (Vitamin C) 500 mg PO DAILY vitamin 02/05/23 [History Last Taken Unknown] calcium citrate 315 mg calcium-vitamin D3 6.25 mcg (250 unit) tablet (Citracal + Vitamin D Maximum) 2 tab PO TID vitamin 02/05/23 [History Last Taken Unknown] ferrous sulfate 325 mg (65 mg iron) tablet (Feosol) 650 mg PO QODAY iron deficiency 02/05/23 [History Last Taken Unknown] zinc 50 mg tablet 50 mg PO DAILY vitamin 02/05/23 [History Last Taken Unknown] Allergy/AdvReac Type Severity Reaction Status Date / Time No Known Allergies Allergy Verified 02/05/23 13:40 Surgical History H/O gastric sleeve H/O total thyroidectomy with radical neck dissection History of ankle surgery History of dilation and curettage History of ovarian cystectomy History of tonsillectomy Hx of appendectomy Social History Smoking Status: Never smoker alcohol intake: never substance use type: does not use caffeine: Yes what type of physical activity do you participate in: walking seatbelt use: always do you feel safe at home: Yes 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 No fever but chills. HEENT: Reports systems reviewed and no addt'l complaints, except as documented Respiratory/Chest: No acute shortness of breath or respiratory distress or wheezing. CVS: No chest pain tightness or palpitation Gastrointestinal: Denies coffee ground emesis, hematemesis. Nausea but denies vomiting. No acute GI bleed. Rest as described in HPI Genitourinary: Denies burning urination or new urinary tract symptoms Musculoskeletal: Denies acute joint pain or limited range of motion. No acute injury Neurologic: Denies seizure-like symptoms. skin: No ulcer. No rash Endocrinology: Reports systems reviewed and no addt'l complaints, except as documented Hematologic/Lymphatic: Reports systems reviewed and no addt'l complaints, except as documented Rest 14 ROS are negative except as mentioned in HPI Vital Signs Vital Signs Vital Signs: 02/05/23 13:40 02/05/23 16:53 Temperature 96.7 F L 98.3 F Temperature Source Temporal Oral Pulse Rate 110 H 93 Respiratory Rate 18 16 Blood Pressure 130/103 H 145/87 H Blood Pressure Mean 112 106 Pulse Ox 99 96 Oxygen Delivery Method Room Air Room Air Physical Exam Narrative General: Alert, Oriented x3, Cooperative HEENT: Atraumatic, PERRLA, EOMI, Normocephalic Oral: Oral mucosa dry. No Gingival or Mucosal Lesions/ Ulcerations Neck: Supple, No JVD, Negative Carotid Bruits Lungs: Air entry diminished in bilateral lung bases. No crepitation/rhonchi Cardiovascular: Regular rate, Regular Rhythm, Normal S1, Normal S2, No murmurs Abdomen: Bowel Sounds Present, Soft, tenderness present over epigastric and RUQ. No palpable mass. Non-Distended : No renal angle tenderness. No suprapubic tenderness. Extremities: No edema, Capillary Refill Less than 3 Seconds Skin: No rashes, No breakdown Musculoskeletal: No Tenderness to Palpation of Joints or Extremities Neurological: Cranial nerves II-XII grossly intact, DTR 2+/4. No acute focal neurological deficit. Psych/Mental Status: Normal Affect, Appropriate. Results Lab / Micro Data 02/05/23 14:15 02/05/23 14:15 Labs: Laboratory Results - last 24 hr 02/05/23 13:45: Urine Color Adrianne, Urine Clarity Sl. Cloudy, Urine pH 5.0, Ur Specific [place] 1.025, Urine Protein 30 H, Urine Glucose (UA) Normal, Urine Ketones 50 H, Urine Occult Blood 250 H, Urine Nitrite Positive H, Urine Bilirubin 6 H, Urine Urobilinogen 8 H, Ur Leukocyte Esterase 100 H, Urine RBC 5- 10 SEEN, Urine WBC 0-5 SEEN, Ur Squamous Epith Cells 0-5 SEEN, Urine Bacteria 1+, Urine Mucus 0 SEEN 02/05/23 14:15: WBC 7.3, RBC 4.42, Hgb 13.0, Hct 39.8, MCV 90.0, MCH 29.4, MCHC 32.7, RDW Std Deviation 43.3, RDW Coeff of Mihir 13.1, Plt Count 217, MPV 11.8, Immature Gran % (Auto) 0.300, Neut % (Auto) 78.4 H, Lymph % (Auto) 13.6 L, [place] % (Auto) 6.5, Eos % (Auto) 1.1, Baso % (Auto) 0.1, Absolute Neuts (auto) 5.7, Absolute Lymphs (auto) 0.99, Nucleated RBC % 0, Sodium 138, Potassium 3.9, Chloride 106, Carbon Dioxide 27.0, Anion Gap 5, BUN 14, Creatinine 0.75, Est GFR (MDRD) Af Amer 106, Est GFR (MDRD) Non-Af 88, BUN/Creatinine Ratio 18.6, Glucose 107 H, Calcium 9.6, Total Bilirubin 3.20 H, AST 100 H, ALT 221 H, Alkaline Phosphatase 372 H, Total Protein 7.0, Albumin 3.2, Globulin 3.8, Albumin/Globulin Ratio 0.8 L, Lipase 3086 H Imagaing Radiology Impression Abdomen/Pelvis CT 02/05/23 15:17 IMPRESSION: 1. Trace pericholecystic fluid. Correlate clinically. Consider gallbladder ultrasound if clinically warranted. 2. Mild enlargement of the pancreatic head and uncinate without discrete mass. Consider follow-up multiphase CT or MRI of the pancreas. 3. Uterine fibroids. Electronically Signed: Tamika Norris MD at 16:33 EST Reading Location ID and State: [id number] / Tel , Service support , Assessment & Plan Assessment/Plan (1) Acute gallstone pancreatitis: PLAN: Plan This is 47-year-old female being admitted for acute gallstone pancreatitis. 1. Acute gallstone pancreatitis: The patient is admitted MedSurg floor. Patient has normal WBC count, hemoglobin and hematocrit. Neutrophils 78%. Liver chemistry shows elevated transaminases ALT more than AST, alkaline phosphatase 372 and total bilirubin 3.2. Direct bilirubin ordered. Lipase is about 3000. CT abdomen/pelvis as described in HPI. Patient was seen by Dr. Orozco. GI is consulted and possible ERCP tomorrow AM. Right upper quadrant sonogram ordered. As per surgeon, Dr. Gross might take her surgery on Monday after ERCP. there is possibility of choledocholithiasis therefore clinical probability of ascending cholangitis, therefore empirically started IV Zosyn. IV fluid normal saline 250 mill per hour for acute pancreatitis. Patient does not have history of drinking alcohol or smoking. Keep NPO. Monitor intake and output. 2. Thyroid cancer status post thyroidectomy and postop hypothyroidism: Continue levothyroxine. Patient is on multiple vitamin D supplement, ferrous sulfate, zinc and other medication and will hold it until oral is permitted. 4. Chronic intermittent asthma/seasonal allergy: Patient not in asthma exacerbation. Hold cetirizine. DuoNeb as needed. DVT prophylaxis moderate risk: Lovenox 40 mg subcu daily. Living will/advanced directive/end of life care: Patient does not have living will or advanced directive. After discussion of benefits/risks procedures involved with full code, DNR CC arrest and DNR CC, the patient opted for full code. Patient does want artificial life support including intubation, tube feed, ventilator and/chest compression, central venous catheter, vasopressor and DC shock if needed Total time spent in [id number] encounter in discussion of advanced directive 17 minutes. Laboratory Results 02/05/23 13:45: Urine Color Adrianne, Urine Clarity Sl. Cloudy, Urine pH 5.0, Ur Specific [place] 1.025, Urine Protein 30 H, Urine Glucose (UA) Normal, Urine Ketones 50 H, Urine Occult Blood 250 H, Urine Nitrite Positive H, Urine Bilirubin 6 H, Urine Urobilinogen 8 H, Ur Leukocyte Esterase 100 H, Urine RBC 5- 10 SEEN, Urine WBC 0-5 SEEN, Ur Squamous Epith Cells 0-5 SEEN, Urine Bacteria 1+ , Urine Mucus 0 SEEN 02/05/23 14:15: WBC 7.3, RBC 4.42, Hgb 13.0, Hct 39.8, MCV 90.0, MCH 29.4, MCHC 32.7, RDW Std Deviation 43.3, RDW Coeff of Mihir 13.1, Plt Count 217, MPV 11.8, Immature Gran % (Auto) 0.300, Neut % (Auto) 78.4 H, Lymph % (Auto) 13.6 L, [place] % (Auto) 6.5, Eos % (Auto) 1.1, Baso % (Auto) 0.1, Absolute Neuts (auto) 5.7, Absolute Lymphs (auto) 0.99, Nucleated RBC % 0, Sodium 138, Potassium 3.9, Chloride 106, Carbon Dioxide 27.0, Anion Gap 5, BUN 14, Creatinine 0.75, Est GFR (MDRD) Af Amer 106, Est GFR (MDRD) Non-Af 88, BUN/Creatinine Ratio 18.6, Glucose 107 H, Calcium 9.6, Total Bilirubin 3.20 H, AST 100 H, ALT 221 H, Alkaline Phosphatase 372 H, Total Protein 7.0, Albumin 3.2, Globulin 3.8, Albumin/Globulin Ratio 0.8 L, Lipase 3086 H Clinical Impression(s) from Imaging Studies Abdomen/Pelvis CT 02/05/23 15:17 IMPRESSION: 1. Trace pericholecystic fluid. Correlate clinically. Consider gallbladder ultrasound if clinically warranted. 2. Mild enlargement of the pancreatic head and uncinate without discrete mass. Consider follow-up multiphase CT or MRI of the pancreas. 3. Uterine fibroids. Electronically Signed: Tamika Norris MD at 16:33 EST Reading Location ID and State: [id number] / Tel , Service support , Charges/Coding Visit Charges Inpatient E&M: 16919 Init Hosp L3 Procedures Hospitalists Procedures: 90594 Advncd Care Plan 30 Min
[2023-02-05] MEDS: Piperacil/Tazobactam 3.375 GM in 0.9% Normal Saline (50mL MB+) 50 ML IV ×2 (17:38→21:54)
[2023-02-05 17:40] VITALS: BP 144/88; PULSE 88; RESP 16; O2SAT 100; BMI 33.0
--- NOTE | 2023-02-05 17:48 | CON.PCM.SX_ITS ---
Assessment & Plan Assessment/Plan (1) Acute gallstone pancreatitis: PLAN: The patient has elevated LFTs and on imaging she has pericholecystic fluid. She underwent sleeve gastrectomy in the past. The patient also has elevated lipase and pancreatic head prominence. This indicates the patient likely has gallstone pancreatitis. I recommend admission and antibiotics and treatment of the pancreatitis by the medicine team and consult GI for ERCP with stone removal. I am out of town starting Monday of this week but one of my partners will be available to perform a laparoscopic cholecystectomy once the pancreatitis resolves during this hospital visit. Per Orozco MD Pager: [facility] [address] [place] [address], [address] [place] [address] Office: HPI Consult Data Date of Consult: 02/05/23 HPI Narrative HPI Narrative: MICHAEL CHOUDHURY, is a 47 F who presents with epigastric pain. Patient notes that the pain started approximately 6 days ago. It has been getting worse and today it was unbearable and she had to come to the emergency room. She denies fevers or chills but she does states she has been seeing yellowing of the skin. She has never had gallbladder issues in the past. She has had a gastric sleeve in the past. [facility] Medical History Alcohol use Asthma Non-smoker Postoperative primary hypothyroidism Thyroid cancer Thyroid disease Wears contact lenses Home Medications multivitamin,[id number] (Complete Multivitamin tablet) 1 tab PO DAILY supplement 05/02/18 [History Last Taken Unknown] cholecalciferol (vitamin D3) 50 mcg (2,000 unit) capsule 50 mcg PO DAILY supplement 05/04/20 [History Last Taken Unknown] albuterol sulfate 90 mcg/actuation breath activated powder inhaler,sensor (Proair Digihaler) 2 inh inhalation Q6H asthma 08/14/20 [History Last Taken Unknown] duloxetine 60 mg capsule,delayed release (Cymbalta) 60 mg PO DAILY 03/03/22 [History Last Taken Unknown] biotin 5,000 mcg sublingual tablet 5,000 mcg sublingual DAILY 06/13/22 [History Last Taken Unknown] calcium carbonate 400 mg calcium (1,000 mg) chewable tablet (Antacid Ultra Strength) 400 mg PO DAILY 06/13/22 [History Last Taken Unknown] cetirizine 10 mg capsule (All Day Allergy (cetirizine)) 10 mg PO DAILY PRN 06/13/22 [History Last Taken Unknown] clotrimazole 1 % topical cream 1 applic topical BID 14 days #30 grams 06/13/22 [Rx Last Taken Unknown] mecobalamin (vitamin B12) 500 mcg chewable tablet mcg PO 06/13/22 [History Last Taken Unknown] omeprazole 10 mg capsule,delayed release 10 mg PO DAILY 06/13/22 [History Last Taken Unknown] ursodiol 300 mg capsule 300 mg PO BID 06/13/22 [History Last Taken Unknown] levothyroxine 150 mcg tablet 150 mcg PO .M-F #90 tabs 08/04/22 [Rx Last Taken Unknown] Allergy/AdvReac Type Severity Reaction Status Date / Time No Known Allergies Allergy Verified 02/05/23 13:40 Surgical History H/O gastric sleeve H/O total thyroidectomy with radical neck dissection History of ankle surgery History of dilation and curettage History of ovarian cystectomy History of tonsillectomy Hx of appendectomy Social History Smoking Status: Never smoker alcohol intake: never substance use type: does not use caffeine: Yes what type of physical activity do you participate in: walking seatbelt use: always do you feel safe at home: Yes 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 [employer] Constitutional Constitutional: Denies anorexia, chills or fatigue Eyes Eyes: Denies blurry vision ENT HEENT: Denies abnormal hearing Cardiovascular Cardiovascular: Denies chest pain Respiratory/Chest Respiratory/Chest: Denies cough or dyspnea Gastrointestinal Gastrointestinal: Reports abdominal pain; Denies nausea or vomiting Genitourinary Genitourinary: Denies change in urinary stream Musculoskeletal Musculoskeletal: Denies abnormal gait Integumentary Integumentary: Reports jaundice Neurologic Neurologic: Denies abnormal gait Psychiatric Psychiatric: Denies anxiety Endocrine Endocrinology: Denies heat intolerance Lab / Micro Data 02/05/23 14:15 02/05/23 14:15 Labs: Laboratory Results - last 24 hr 02/05/23 13:45: Urine Color Adrianne, Urine Clarity Sl. Cloudy, Urine pH 5.0, Ur Specific [place] 1.025, Urine Protein 30 H, Urine Glucose (UA) Normal, Urine Ketones 50 H, Urine Occult Blood 250 H, Urine Nitrite Positive H, Urine Bilirubin 6 H, Urine Urobilinogen 8 H, Ur Leukocyte Esterase 100 H, Urine RBC 5- 10 SEEN, Urine WBC 0-5 SEEN, Ur Squamous Epith Cells 0-5 SEEN, Urine Bacteria 1+, Urine Mucus 0 SEEN 02/05/23 14:15: WBC 7.3, RBC 4.42, Hgb 13.0, Hct 39.8, MCV 90.0, MCH 29.4, MCHC 32.7, RDW Std Deviation 43.3, RDW Coeff of Mihir 13.1, Plt Count 217, MPV 11.8, Immature Gran % (Auto) 0.300, Neut % (Auto) 78.4 H, Lymph % (Auto) 13.6 L, [place] % (Auto) 6.5, Eos % (Auto) 1.1, Baso % (Auto) 0.1, Absolute Neuts (auto) 5.7, Absolute Lymphs (auto) 0.99, Nucleated RBC % 0, Sodium 138, Potassium 3.9, Chloride 106, Carbon Dioxide 27.0, Anion Gap 5, BUN 14, Creatinine 0.75, Est GFR (MDRD) Af Amer 106, Est GFR (MDRD) Non-Af 88, BUN/Creatinine Ratio 18.6, Glucose 107 H, Calcium 9.6, Total Bilirubin 3.20 H, AST 100 H, ALT 221 H, Alkaline Phosphatase 372 H, Total Protein 7.0, Albumin 3.2, Globulin 3.8, Albumin/Globulin Ratio 0.8 L, Lipase 3086 H Imagaing Radiology Impression Abdomen/Pelvis CT 02/05/23 15:17 IMPRESSION: 1. Trace pericholecystic fluid. Correlate clinically. Consider gallbladder ultrasound if clinically warranted. 2. Mild enlargement of the pancreatic head and uncinate without discrete mass. Consider follow-up multiphase CT or MRI of the pancreas. 3. Uterine fibroids. Electronically Signed: Tamika Norris MD at 16:33 EST Reading Location ID and State: [id number] / Tel , Service support ,
[2023-02-05 18:27] VITALS: BP 144/88; PULSE 88; O2SAT 98
[2023-02-05 19:44] VITALS: BMI 33.2
[2023-02-05 19:44] LABS: Bilirubin, Direct 2.31 mg/dL (0.00-0.30); Magnesium 1.9 mg/dL (1.6-2.6); Phosphorus 3.3 mg/dL (2.5-4.9)
[2023-02-05 19:53] VITALS: BP 132/79; PULSE 80; RESP 14; TEMP 36.7; O2SAT 98
[2023-02-05] MEDS: 0.9% Normal Saline (1000mL) 1,000 ML 250 ML IV (20:02)
[2023-02-05] MEDS: Enoxaparin 40 MG/0.4 ML Syringe SC (21:55)
[2023-02-05] MEDS: Morphine 2 MG/ML Syringe IV (21:55)
--- NOTE | 2023-02-05 23:00 | EX.PCM.CON.G ---
HPI Consult Data Date of Consult: 02/05/23 HPI Narrative Reason for Consultation: Gallstone pancreatitis HPI Narrative: MICHAEL CHOUDHURY, is a 47 F who presents with acute onset abdominal pain. She is status post gastric sleeve approximately 6 months ago. She has no prior history of hepatobiliary or pancreatic disease came to ED with epigastric abdominal pain for about 1 week. She described her pain in epigastric region, spontaneous onset, intermittent, colicky in nature, episodic each episode lasting for about 15 to 20 minutes but pain never goes away. Frequency and duration of pain increased over last 1 week more so over last 2 days. Patient felt cold but denies any fever. She is still any food or drink makes her pain worse. She denies alcohol or smoking history. In ED, she had CT abdomen pelvis which shows trace pericholecystic fluid, mild enlargement of pancreatic head and uncinate process without discrete mass. Lipase enzyme is very high, 3086 along with total bilirubin, transaminases and alkaline phosphatase. CT abdomen pelvis displayed : Trace pericholecystic fluid. Correlate clinically. Mild enlargement of the pancreatic head and uncinate without discrete mass. [facility] Medical History Alcohol use Asthma Non-smoker Postoperative primary hypothyroidism Thyroid cancer Thyroid disease Wears contact lenses Home Medications multivitamin,[id number] (Complete Multivitamin tablet) 1 tab PO DAILY supplement 05/02/18 [History Last Taken Unknown] cholecalciferol (vitamin D3) 50 mcg (2,000 unit) capsule 50 mcg PO DAILY supplement 05/04/20 [History Last Taken Unknown] albuterol sulfate 90 mcg/actuation breath activated powder inhaler,sensor (Proair Digihaler) 2 inh inhalation Q6H asthma 08/14/20 [History Last Taken Unknown] biotin 5,000 mcg sublingual tablet 5,000 mcg sublingual DAILY vitamin 06/13/22 [History Last Taken 02/04/23] cetirizine 10 mg capsule (All Day Allergy (cetirizine)) 10 mg PO DAILY allergies 06/13/22 [History Last Taken Unknown] mecobalamin (vitamin B12) 500 mcg chewable tablet 500 mcg PO DAILY vitamin 06/13/22 [History Last Taken Unknown] levothyroxine 150 mcg tablet 150 mcg PO .M-F thyroid #90 tabs 08/04/22 [Rx Last Taken Unknown] ascorbic acid (vitamin C) 500 mg tablet (Vitamin C) 500 mg PO DAILY vitamin 02/05/23 [History Last Taken Unknown] calcium citrate 315 mg calcium-vitamin D3 6.25 mcg (250 unit) tablet (Citracal + Vitamin D Maximum) 2 tab PO TID vitamin 02/05/23 [History Last Taken Unknown] ferrous sulfate 325 mg (65 mg iron) tablet (Feosol) 650 mg PO QODAY iron deficiency 02/05/23 [History Last Taken Unknown] zinc 50 mg tablet 50 mg PO DAILY vitamin 02/05/23 [History Last Taken Unknown] Allergy/AdvReac Type Severity Reaction Status Date / Time No Known Allergies Allergy Verified 02/06/23 13:15 Surgical History H/O gastric sleeve H/O total thyroidectomy with radical neck dissection History of ankle surgery History of dilation and curettage History of ovarian cystectomy History of tonsillectomy Hx of appendectomy Social History Smoking Status: Never smoker alcohol intake: never substance use type: does not use caffeine: Yes what type of physical activity do you participate in: walking seatbelt use: always do you feel safe at home: Yes 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 Constitutional: Denies anorexia, chills or fatigue Eyes Eyes: Denies blurry vision ENT HEENT: Denies abnormal hearing Cardiovascular Cardiovascular: Denies chest pain Respiratory/Chest Respiratory/Chest: Denies cough or dyspnea Gastrointestinal Gastrointestinal: Reports abdominal pain; Denies nausea or vomiting Genitourinary Genitourinary: Denies change in urinary stream Musculoskeletal Musculoskeletal: Denies abnormal gait Integumentary Integumentary: Reports jaundice Neurologic Neurologic: Denies abnormal gait Psychiatric Psychiatric: Denies anxiety Endocrine Endocrinology: Denies heat intolerance Physical Exam Const alert and no apparent distress Resp normal respiratory effort, no retractions, no use of accessory muscles and clear to auscultation bilaterally Cardio regular rate, regular rhythm, S1 normal heart sound and S2 normal heart sound GI normal to inspection, nondistended, normoactive bowel sounds, soft to palpation and non-distended GI Narrative: RUQ ab Extremity normal to inspection Neuro Sensorium / Orientation: awake and alert Lab / Micro Data 02/06/23 03:35 02/06/23 03:35 Labs: Laboratory Results - last 24 hr 02/05/23 14:50: Phosphorus 3.3, Magnesium 1.9, Direct Bilirubin 2.31 H 02/06/23 03:35: WBC 6.3, RBC 3.98 L, Hgb 11.8 L, Hct 37.3, MCV 93.7, MCH 29.6, MCHC 31.6 L, RDW Std Deviation 45.4 H, RDW Coeff of Mihir 13.1, Plt Count 185, MPV 12.8 H, Immature Gran % (Auto) 0.300, Neut % (Auto) 73.3 H, Lymph % (Auto) 18.7 L, [place] % (Auto) 6.1, Eos % (Auto) 1.4, Baso % (Auto) 0.2, Absolute Neuts (auto) 4.6, Absolute Lymphs (auto) 1.17, Nucleated RBC % 0, PT 13.9, INR 1.1, Sodium 143, Potassium 3.6, Chloride 111 H, Carbon Dioxide 24.0, Anion Gap 8, BUN 13, Creatinine 0.63, Estim Creat Clear Calc 83.30, Est GFR (MDRD) Af Amer 130, Est GFR (MDRD) Non-Af 107, BUN/Creatinine Ratio 20.6 H, Glucose 80, Calcium 8.0 L, Total Bilirubin 2.40 H, AST 75 H, ALT 178 H, Alkaline Phosphatase 339 H, Total Protein 6.2 L, Albumin 2.8 L, Globulin 3.4, Albumin/Globulin Ratio 0.8 L, TSH 9.99 H Imagaing Radiology Impression Abdomen/Pelvis CT 02/05/23 15:17 IMPRESSION: 1. Trace pericholecystic fluid. Correlate clinically. Consider gallbladder ultrasound if clinically warranted. 2. Mild enlargement of the pancreatic head and uncinate without discrete mass. Consider follow-up multiphase CT or MRI of the pancreas. 3. Uterine fibroids. Electronically Signed: Tamika Norris MD at 16:33 EST Reading Location ID and State: [id number] / Tel , Service support , Assessment & Plan Assessment/Plan (1) Acute gallstone pancreatitis: PLAN: Plan This is 47-year-old female being admitted for acute gallstone pancreatitis. Acute gallstone pancreatitis: The patient is admitted MedSurg floor. Patient has normal WBC count, hemoglobin and hematocrit. Neutrophils 78%. Liver chemistry shows elevated transaminases ALT more than AST, alkaline phosphatase 372 and total bilirubin 3.2. Direct bilirubin ordered. Lipase is about 3000. CT abdomen/pelvis as described in HPI. ERCP tomorrow AM. IV fluid normal saline 250 mill per hour for acute pancreatitis. Patient does not have history of drinking alcohol or smoking. Keep NPO. Monitor intake and output. Thyroid cancer status post thyroidectomy and postop hypothyroidism: Continue levothyroxine. Patient is on multiple vitamin D supplement, ferrous sulfate, zinc and other medication and will hold it until oral is permitted. Chronic intermittent asthma/seasonal allergy: Patient not in asthma exacerbation. Hold cetirizine. DuoNeb as needed. Charges/Coding Visit Charges Inpatient E&M: 31494 Init Hosp L3
[2023-02-06] VITALS (13 sets, daily range): BP systolic 89–122; BP diastolic 55–106; PULSE 62–91; RESP 14–18; TEMP 36.3–36.8; O2SAT 93–98; BMI 33.2
[2023-02-06] MEDS: 0.9% Normal Saline (1000mL) 1,000 ML 250 ML IV (04:17)
[2023-02-06 04:47] LABS: ALB/GLOB Ratio 0.8 RATIO (0.9-2.4); AST(SGOT) 75 U/L (15-37); Alanine Aminotransfer ALT/SGPT 178 U/L (13-56); Albumin, Serum 2.8 g/dL (3.2-5.0); Alkaline Phosphatase 339 U/L (45-117); Anion Gap 8 (5-15); BUN 13 mg/dL (7-18); BUN/Creat Ratio 20.6 RATIO (10-20); Chloride 111 mmol/L (98-107); Creatinine, Serum 0.63 mg/dL (0.55-1.02); EST Glomerular Filtration Rate 107 mL/min (>60); Est Glom Filt Rate - Afr Amer 130 mL/min (>60); Globulin 3.4 g/dL (2.2-4.2); Glucose 80 mg/dL (74-106); Potassium 3.6 mmol/L (3.5-5.1); Protein, Total 6.2 g/dL (6.4-8.2); Sodium Level 143 mmol/L (136-145); Thyroid Stim Hormone (TSH) 9.99 uIU/mL (0.358-3.74)
[2023-02-06 04:50] LABS: Absolute Lymphocyte Count 1.17 X10^3/uL (0.83-4.51); Absolute Neutrophil Count 4.6 X10^3/uL (2.0-7.7); Basophil# 0.01 X10^3/uL; Basophil% 0.2 % (0-1); Eosinophil# 0.09 X10^3/uL; Eosinophils% 1.4 % (0-5); Hematocrit 37.3 % (37-47); Hemoglobin 11.8 g/dL (12.0-15.0); Lymphocyte # 1.17 X10^3/ul (0.83-4.51); Lymphocyte % 18.7 % (19-41); Mean Corp Hgb Conc 31.6 g/dL (32-36); Mean Corpuscular Hgb 29.6 pg (27.0-32.0); Mean Corpuscular Volume 93.7 fL (81-99); Mean Platelet Vol. 12.8 fl (6.2-12.0); Monocyte# 0.38 X10^3/uL; Monocyte% 6.1 % (0-10); NRBC Flagged by Analyzer 0 % (0-5); Neutrophil % 73.3 % (47-70); Platelet Count 185 K/mm3 (150-450); RBC Distribution Width CV 13.1 % (11.6-14.6); RBC Distribution Width SD 45.4 fl (35.1-43.9); Red Blood Count 3.98 M/mm3 (4.2-5.4); White Blood Count 6.3 K/mm3 (4.4-11.0)
[2023-02-06 04:55] LABS: International Normalized Ratio 1.1; Prothrombin Time (Protime)PT. 13.9 SECONDS (11.7-14.9)
[2023-02-06] MEDS: Piperacil/Tazobactam 3.375 GM in 0.9% Normal Saline (50mL MB+) 50 ML IV ×3 (05:34→21:52)
--- NOTE | 2023-02-06 05:55 | US_ITS ---
STUDY: ABDOMINAL ULTRASOUND - RIGHT UPPER QUADRANT REASON FOR VISIT: Female, 47 years old Mild RUQ tenderness, alchohol pancreatitis TECHNIQUE: Ultrasound evaluation of the right upper quadrant was performed with real-time and static capellan-scale imaging. TECHNICAL QUALITY: Adequate. COMPARISON: CT of abdomen and pelvis dated February 05, 2023 FINDINGS: Liver: The liver measures 18.4 cm. There is normal echogenicity of the liver. The bile ducts are within normal limits. There is hepatic color flow. The direction of portal flow is hepatopetal. There is no demonstrated mass lesion. Gallbladder: Normal distended gallbladder. The gallbladder wall measures 4 mm. There is no pericholecystic fluid. The gallbladder is completely filled with stones and sludge. Common Bile Duct (C.B.D.): The common bile duct is mildly dilated at 8 mm. Pancreas: Normal size of the head, body and tail of the pancreas. There is normal echogenicity of the pancreas. There is no demonstrated pancreatic mass or cyst. Right Kidney: Normal size of the right kidney. The right kidney measures 12.4 x 6.2 x 5.8 cm. Normal renal cortex. The right cortex measures 1.9 cm. There is no demonstrated renal mass or cyst. There is no right hydronephrosis. US/Abdomen Limited IMPRESSION: 1. Cholelithiasis. Mild thickening of the gallbladder wall without pericholecystic fluid 2. Nuclear medicine HIDA scan can be obtained for evaluation of acute cholecystitis 3. Mild dilatation of the CBD at 8 mm. Electronically Signed: James Wing MD at 16:01 EST ,
--- NOTE | 2023-02-06 07:31 | PCM.PN.SRG ---
Subjective Subjective The patient still reports she is having epigastric pain but it is not as bad as yesterday. She denies nausea. Objective Data Objective Data Vital Signs: Vital Signs Temp Pulse Resp BP Pulse Ox O2 Del Method 98 F 81 14 122/70 H 98 Room Air 02/06/23 01:53 02/06/23 01:53 02/06/23 01:53 02/06/23 01:53 02/06/23 01:53 02/06/23 01:53 Oxygen Delivery Method Room Air Weight: 175 lb 14.862 oz Body Mass Index (BMI) 33.2 Intake & Output: Intake and Output for Last 24 Hours 02/04/23 02/05/23 02/06/23 23:59 23:59 23:59 Intake Total 1520.83 / 1520.83 704.16 / 704.16 Balance 1520.83 / 1520.83 704.16 / 704.16 Lab / Micro Data 02/06/23 03:35 02/06/23 03:35 Labs: Laboratory Results - last 24 hr 02/05/23 13:45: Urine Color Adrianne, Urine Clarity Sl. Cloudy, Urine pH 5.0, Ur Specific [place] 1.025, Urine Protein 30 H, Urine Glucose (UA) Normal, Urine Ketones 50 H, Urine Occult Blood 250 H, Urine Nitrite Positive H, Urine Bilirubin 6 H, Urine Urobilinogen 8 H, Ur Leukocyte Esterase 100 H, Urine RBC 5-10 SEEN, Urine WBC 0-5 SEEN, Ur Squamous Epith Cells 0-5 SEEN, Urine Bacteria 1+, Urine Mucus 0 SEEN 02/05/23 14:15: WBC 7.3, RBC 4.42, Hgb 13.0, Hct 39.8, MCV 90.0, MCH 29.4, MCHC 32.7, RDW Std Deviation 43.3, RDW Coeff of Mihir 13.1, Plt Count 217, MPV 11.8, Immature Gran % (Auto) 0.300, Neut % (Auto) 78.4 H, Lymph % (Auto) 13.6 L, [place] % (Auto) 6.5, Eos % (Auto) 1.1, Baso % (Auto) 0.1, Absolute Neuts (auto) 5.7, Absolute Lymphs (auto) 0.99, Nucleated RBC % 0, Sodium 138, Potassium 3.9, Chloride 106, Carbon Dioxide 27.0, Anion Gap 5, BUN 14, Creatinine 0.75, Est GFR (MDRD) Af Amer 106, Est GFR (MDRD) Non-Af 88, BUN/Creatinine Ratio 18.6, Glucose 107 H, Calcium 9.6, Total Bilirubin 3.20 H, AST 100 H, ALT 221 H, Alkaline Phosphatase 372 H, Total Protein 7.0, Albumin 3.2, Globulin 3.8, Albumin/Globulin Ratio 0.8 L, Lipase 3086 H 02/05/23 14:50: Phosphorus 3.3, Magnesium 1.9, Direct Bilirubin 2.31 H 02/06/23 03:35: WBC 6.3, RBC 3.98 L, Hgb 11.8 L, Hct 37.3, MCV 93.7, MCH 29.6, MCHC 31.6 L, RDW Std Deviation 45.4 H, RDW Coeff of Mihir 13.1, Plt Count 185, MPV 12.8 H, Immature Gran % (Auto) 0.300, Neut % (Auto) 73.3 H, Lymph % (Auto) 18.7 L, [place] % (Auto) 6.1, Eos % (Auto) 1.4, Baso % (Auto) 0.2, Absolute Neuts (auto) 4.6, Absolute Lymphs (auto) 1.17, Nucleated RBC % 0, PT 13.9, INR 1.1, Sodium 143, Potassium 3.6, Chloride 111 H, Carbon Dioxide 24.0, Anion Gap 8, BUN 13, Creatinine 0.63, Estim Creat Clear Calc 83.30, Est GFR (MDRD) Af Amer 130, Est GFR (MDRD) Non-Af 107, BUN/Creatinine Ratio 20.6 H, Glucose 80, Calcium 8.0 L, Total Bilirubin 2.40 H, AST 75 H, ALT 178 H, Alkaline Phosphatase 339 H, Total Protein 6.2 L, Albumin 2.8 L, Globulin 3.4, Albumin/Globulin Ratio 0.8 L, TSH 9.99 H Radiography Diagnostic Testing: Radiology Impression Abdomen/Pelvis CT 02/05/23 15:17 IMPRESSION: 1. Trace pericholecystic fluid. Correlate clinically. Consider gallbladder ultrasound if clinically warranted. 2. Mild enlargement of the pancreatic head and uncinate without discrete mass. Consider follow-up multiphase CT or MRI of the pancreas. 3. Uterine fibroids. Electronically Signed: Tamika Norris MD at 16:33 EST Reading Location ID and State: [id number] / Tel , Service support , Physical Exam Const oriented x3 and no apparent distress Resp normal respiratory effort GI soft to palpation Palpation: tender epigastric and RUQ Assessment & Plan Assessment/Plan (1) Cholecystitis: (2) Acute gallstone pancreatitis: PLAN: Plan The patient's LFTs are decreasing but she is still having epigastric discomfort. She will require laparoscopic cholecystectomy before discharge and my partner will be able to do so on Monday or of this week. GI is consulted for possible ERCP. Per Orozco MD Pager: [facility] [address] [place] [address], [address] [place] [address] Office:
--- NOTE | 2023-02-06 08:21 | PCM.PN.HOSP ---
Reason for Visit Reason for Visit: Diagnoses Cholecystitis, unspecified (02/05/23) Biliary acute pancreatitis without necrosis or infection (02/05/23) Subjective Subjective Feeling better. Still with abdominal pain, but overall improved. Objective Data Objective Data Vital Signs: Vital Signs Temp Pulse Resp BP Pulse Ox O2 Del Method 36.6 C 81 14 122/70 H 98 Room Air 02/06/23 01:53 02/06/23 01:53 02/06/23 01:53 02/06/23 01:53 02/06/23 01:53 02/06/23 01:53 Oxygen Delivery Method Room Air Weight: 79.8 kg Body Mass Index (BMI) 33.2 Intake & Output: Intake and Output for Last 24 Hours 02/04/23 02/05/23 02/06/23 23:59 23:59 23:59 Intake Total 1520.83 / 1520.83 704.16 / 704.16 Balance 1520.83 / 1520.83 704.16 / 704.16 Lab / Micro Data 02/06/23 03:35 02/06/23 03:35 Labs: Laboratory Results - last 24 hr 02/05/23 13:45: Urine Color Adrianne, Urine Clarity Sl. Cloudy, Urine pH 5.0, Ur Specific [place] 1.025, Urine Protein 30 H, Urine Glucose (UA) Normal, Urine Ketones 50 H, Urine Occult Blood 250 H, Urine Nitrite Positive H, Urine Bilirubin 6 H, Urine Urobilinogen 8 H, Ur Leukocyte Esterase 100 H, Urine RBC 5-10 SEEN, Urine WBC 0-5 SEEN, Ur Squamous Epith Cells 0-5 SEEN, Urine Bacteria 1+, Urine Mucus 0 SEEN 02/05/23 14:15: WBC 7.3, RBC 4.42, Hgb 13.0, Hct 39.8, MCV 90.0, MCH 29.4, MCHC 32.7, RDW Std Deviation 43.3, RDW Coeff of Mihir 13.1, Plt Count 217, MPV 11.8, Immature Gran % (Auto) 0.300, Neut % (Auto) 78.4 H, Lymph % (Auto) 13.6 L, [place] % (Auto) 6.5, Eos % (Auto) 1.1, Baso % (Auto) 0.1, Absolute Neuts (auto) 5.7, Absolute Lymphs (auto) 0.99, Nucleated RBC % 0, Sodium 138, Potassium 3.9, Chloride 106, Carbon Dioxide 27.0, Anion Gap 5, BUN 14, Creatinine 0.75, Est GFR (MDRD) Af Amer 106, Est GFR (MDRD) Non-Af 88, BUN/Creatinine Ratio 18.6, Glucose 107 H, Calcium 9.6, Total Bilirubin 3.20 H, AST 100 H, ALT 221 H, Alkaline Phosphatase 372 H, Total Protein 7.0, Albumin 3.2, Globulin 3.8, Albumin/Globulin Ratio 0.8 L, Lipase 3086 H 02/05/23 14:50: Phosphorus 3.3, Magnesium 1.9, Direct Bilirubin 2.31 H 02/06/23 03:35: WBC 6.3, RBC 3.98 L, Hgb 11.8 L, Hct 37.3, MCV 93.7, MCH 29.6, MCHC 31.6 L, RDW Std Deviation 45.4 H, RDW Coeff of Mihir 13.1, Plt Count 185, MPV 12.8 H, Immature Gran % (Auto) 0.300, Neut % (Auto) 73.3 H, Lymph % (Auto) 18.7 L, [place] % (Auto) 6.1, Eos % (Auto) 1.4, Baso % (Auto) 0.2, Absolute Neuts (auto) 4.6, Absolute Lymphs (auto) 1.17, Nucleated RBC % 0, PT 13.9, INR 1.1, Sodium 143, Potassium 3.6, Chloride 111 H, Carbon Dioxide 24.0, Anion Gap 8, BUN 13, Creatinine 0.63, Estim Creat Clear Calc 83.30, Est GFR (MDRD) Af Amer 130, Est GFR (MDRD) Non-Af 107, BUN/Creatinine Ratio 20.6 H, Glucose 80, Calcium 8.0 L, Total Bilirubin 2.40 H, AST 75 H, ALT 178 H, Alkaline Phosphatase 339 H, Total Protein 6.2 L, Albumin 2.8 L, Globulin 3.4, Albumin/Globulin Ratio 0.8 L, TSH 9.99 H Radiography Diagnostic Testing: Radiology Impression Abdomen/Pelvis CT 02/05/23 15:17 IMPRESSION: 1. Trace pericholecystic fluid. Correlate clinically. Consider gallbladder ultrasound if clinically warranted. 2. Mild enlargement of the pancreatic head and uncinate without discrete mass. Consider follow-up multiphase CT or MRI of the pancreas. 3. Uterine fibroids. Electronically Signed: Tamika Norris MD at 16:33 EST , Physical Exam Const alert and no apparent distress Resp normal respiratory effort, no retractions, no use of accessory muscles and clear to auscultation bilaterally Cardio regular rate, regular rhythm, S1 normal heart sound and S2 normal heart sound GI normal to inspection, nondistended, normoactive bowel sounds, soft to palpation and non-distended GI Narrative: RUQ ab Extremity normal to inspection Neuro Sensorium / Orientation: awake and alert Assessment & Plan Assessment/Plan (1) Acute gallstone pancreatitis: PLAN: Plan 1. Acute gallstone pancreatitis: CT abdomen/pelvis shows pericholecystic fluid, mild enlargement of the pancreatic head and uncinate w/o discrete mass. Patient was seen by GS, possible surgery on 02/08. GI is consulted and possible ERCP today. Right upper quadrant sonogram ordered. Chronic conditions: Thyroid cancer status post thyroidectomy and postop hypothyroidism: Continue levothyroxine. Patient is on multiple vitamin D supplement, ferrous sulfate, zinc and other medication and will hold it until oral is permitted. Chronic intermittent asthma/seasonal allergy: Patient not in asthma exacerbation. Hold cetirizine. DuoNeb as needed. DVT prophylaxis moderate risk: Lovenox 40 mg subcu daily. Charges/Coding Visit Charges Inpatient E&M: 40828 Subs Hosp L2
[2023-02-06] MEDS: Enoxaparin 40 MG/0.4 ML Syringe SC (09:11)
[2023-02-06] MEDS: Lactated Ringers 1,000 ML 15 ML IV (13:14)
--- NOTE | 2023-02-06 14:15 | CASEMGMT ---
RN CM into room to complete assessment, pt is off the floor at this time.
--- NOTE | 2023-02-06 14:28 | RAD_ITS ---
STUDY: ERCP REASON FOR EXAM: Female, 47 years old. ERCP FLUOROSCOPY TIME (if supplied): ( 2 minutes and 30 seconds ) minutes/seconds. 42.27 mGy. 14 fluoroscopic images were obtained. TECHNIQUE: ERCP was performed by the manager continuous improvement. COMPARISON: None. FINDINGS: Mild dilatation of the common bile duct. Small filling defect is seen in the distal common bile duct suggesting choledocholithiasis. RAD/ERCP Biliary/Pancreas IMPRESSION: Mildly dilated common bile duct with filling defects suggestive of choledocholithiasis. A biliary stent was placed. Electronically Signed: Elie Rodriguez MD at 10:31 [facility] ,
--- NOTE | 2023-02-06 15:13 | OP.ERCP_ITS ---
Patient Name: Laquita Burdick Procedure Date: 02/06/2023 1:40 PM Date of : 1975 Age: 47 Procedure: ERCP Indications: Suspected bile duct stone(s), Jaundice, Elevated liver enzymes, Acute pancreatitis Providers: Jose Irby DO Medicines: Monitored Anesthesia Care Patient Profile: This is a 47 year old female. Refer to note in patient chart for documentation of history and physical. Patient has symptoms of acute abdominal cramping, acute right upper quadrant abdominal pain and acute jaundice. This patient has no history of previous ERCP. She is status post laparoscopic sleeve gastrectomy within the past six months. Complications: No immediate complications. Procedure: Pre-Anesthesia Assessment: - Prior to the procedure, a History and Physical was performed, and patient medications and allergies were reviewed. The patient is competent. The risks and benefits of the procedure and the sedation options and risks were discussed with the patient. All questions were answered and informed consent was obtained. Patient identification and proposed procedure were verified by the physician in the pre-procedure area. Mental Status Examination: alert and oriented. Airway Examination: normal oropharyngeal airway and neck mobility. Respiratory Examination: clear to auscultation. CV Examination: normal. Prophylactic Antibiotics: The patient requires prophylactic antibiotics for the planned ERCP in an obstructed bile duct. The patient received antibiotic therapy before the procedure. Prior Anticoagulants: The patient has taken Lovenox (enoxaparin), last dose was day of procedure. ASA Grade Assessment: II - A patient with mild systemic disease. After reviewing the risks and benefits, the patient was deemed in satisfactory condition to undergo the procedure. The anesthesia plan was to use monitored anesthesia care (MAC). Immediately prior to administration of medications, the patient was re-assessed for adequacy to receive sedatives. The heart rate, respiratory rate, oxygen saturations, blood pressure, adequacy of pulmonary ventilation, and response to care were monitored throughout the procedure. The physical status of the patient was re-assessed after the procedure. After obtaining informed consent, the scope was passed under direct vision. Throughout the procedure, the patient's blood pressure, pulse, and oxygen saturations were monitored continuously. The Duodenoscope was introduced through the mouth, and advanced to the duodenum and used to inject contrast into the bile duct. The ERCP was accomplished without difficulty. The patient tolerated the procedure well. Scope In: 2:36:52 PM Scope Out: 2:54:40 PM Total Procedure Duration Time 0 hours 17 minutes 48 seconds Findings: The curve saw operator film was normal. The esophagus was successfully intubated under direct vision. The scope was advanced to a normal major papilla in the descending duodenum without detailed examination of the pharynx, larynx and associated structures, and upper GI tract. The upper GI tract was grossly normal. A straight Roadrunner wire was passed into the biliary tree. The bile duct was then deeply cannulated over the guidewire. Contrast was injected. Opacification of the entire biliary tree except for the gallbladder and main bile duct was successful. The maximum diameter of the ducts was 9 mm. The lower third of the main bile duct contained multiple stones, the largest of which was 6 mm in diameter. The entire biliary tree except for the gallbladder was diffusely dilated, with a stone causing an obstruction. The largest diameter was 9 mm. A 5 mm biliary sphincterotomy was made with a braided traction (standard) sphincterotome using ERBE electrocautery. The sphincterotomy oozed blood. To discover objects, the biliary tree was swept with a 15 mm balloon starting at the bifurcation. Sludge was swept from the duct. All stones were removed. Major papilla was successfully dilated with a 6-7-8 mm balloon dilator. One 10 Fr by 7 cm temporary stent was placed 5 cm into the common bile duct. Bile flowed through the stent. The stent was in good position. Impression: - The biliary system were dilated, with a stone causing an obstruction. - Choledocholithiasis was found. Complete removal was accomplished by biliary sphincterotomy and balloon extraction. - A biliary sphincterotomy was performed. - The biliary tree was swept. - Major papilla was successfully dilated. - One temporary stent was placed into the common bile duct. Procedure Code(s): --- Professional --- 35698, 51, Endoscopic retrograde cholangiopancreatography (ERCP); with placement of endoscopic stent into biliary or pancreatic duct, including pre- and post-dilation and guide wire passage, when performed, including sphincterotomy, when performed, each stent 40087, Endoscopic retrograde cholangiopancreatography (ERCP); with removal of calculi/debris from biliary/pancreatic duct(s) 42359, 59, Placement of stent(s) into a bile duct, percutaneous, including diagnostic cholangiography, imaging guidance (eg, fluoroscopy and/or ultrasound), balloon dilation, catheter exchange(s) and catheter removal(s) when performed, and all associated radiological supervision and interpretation; existing access CPT copyright 2021 [employer]. All rights reserved. The codes documented in this report are preliminary and upon paint line production supervisor review may be revised to meet current compliance requirements. Jose Irby DO 02/06/2023 3:13:26 PM This report has been signed electronically. Number of Addenda: 0 Note Initiated On: 02/06/2023 1:40 PM
--- NOTE | 2023-02-06 15:14 | OP.CCLET_ITS ---
02/06/2023 Sage Rosa [address] [place] [address] Re : ERCP procedure for Laquita Burdick Dear Dr. Rosa This procedure was performed on Monday, February 06, 2023. My impressions and recommendations are as follows: Impressions : - The biliary system were dilated, with a stone causing an obstruction. - Choledocholithiasis was found. Complete removal was accomplished by biliary sphincterotomy and balloon extraction. - A biliary sphincterotomy was performed. - The biliary tree was swept. - Major papilla was successfully dilated. - One temporary stent was placed into the common bile duct. Recommendations : My findings are described in the full procedure note, which is enclosed. If I can be of further assistance, please feel free to contact me at . Sincerely, Jose Irby, 02/06/2023 3:13:26 PM This report has been signed electronically.
[2023-02-06] MEDS: Lactated Ringers 1,000 ML 250 ML IV ×3 (15:41→23:15)
[2023-02-06] MEDS: 0.9% Saline Lock 10 ML Syringe IV (16:53)
[2023-02-06] MEDS: Acetaminophen 325 MG Tablet 650 MG PO (19:40)
--- NOTE | 2023-02-06 20:29 | EKG12_ITS ---
Test Reason : AM EKG Blood Pressure : / mmHG Vent. Rate : 059 BPM Atrial Rate : 059 BPM P-R Int : 144 ms QRS Dur : 070 ms QT Int : 450 ms P-R-T Axes : 043 044 049 degrees QTc Int : 445 ms Sinus bradycardia Low voltage QRS Borderline ECG No previous ECGs available Confirmed by HARSHAD BUTTERFIELD, PATTI ([id number]), editor dictionary RAMOS AVINA ([id number]) on 02/08/2023 6:02:38 AM Referred By: AYAD Confirmed By:PATTI PATRICIA MD
[2023-02-07] VITALS (14 sets, daily range): BP systolic 111–153; BP diastolic 60–110; PULSE 69–92; RESP 16–18; TEMP 36.5–37.4; O2SAT 88–100; BMI 33.2
[2023-02-07] MEDS: Lactated Ringers 1,000 ML 250 ML IV ×2 (03:12→06:38)
[2023-02-07 05:04] LABS: Absolute Lymphocyte Count 0.66 X10^3/uL (0.83-4.51); Absolute Neutrophil Count 5.6 X10^3/uL (2.0-7.7); Basophil# 0.01 X10^3/uL; Basophil% 0.2 % (0-1); Hematocrit 35.7 % (37-47); Hemoglobin 11.8 g/dL (12.0-15.0); Lymphocyte # 0.66 X10^3/ul (0.83-4.51); Lymphocyte % 10.2 % (19-41); Mean Corp Hgb Conc 33.1 g/dL (32-36); Mean Corpuscular Hgb 30.9 pg (27.0-32.0); Mean Corpuscular Volume 93.5 fL (81-99); Mean Platelet Vol. 12.3 fl (6.2-12.0); Monocyte% 3.1 % (0-10); NRBC Flagged by Analyzer 0 % (0-5); Neutrophil # 5.58 X10^3/uL (2.7-7.7); Neutrophil % 85.9 % (47-70); Platelet Count 202 K/mm3 (150-450); RBC Distribution Width CV 12.7 % (11.6-14.6); RBC Distribution Width SD 43.7 fl (35.1-43.9); Red Blood Count 3.82 M/mm3 (4.2-5.4); White Blood Count 6.5 K/mm3 (4.4-11.0)
[2023-02-07] MEDS: Piperacil/Tazobactam 3.375 GM in 0.9% Normal Saline (50mL MB+) 50 ML IV ×3 (05:22→22:23)
[2023-02-07] MEDS: Levothyroxine 150 MCG Tablet PO (05:22)
[2023-02-07 05:42] LABS: ALB/GLOB Ratio 0.7 RATIO (0.9-2.4); AST(SGOT) 57 U/L (15-37); Alanine Aminotransfer ALT/SGPT 149 U/L (13-56); Albumin, Serum 2.5 g/dL (3.2-5.0); Alkaline Phosphatase 348 U/L (45-117); Anion Gap 8 (5-15); BUN 9 mg/dL (7-18); BUN/Creat Ratio 17.2 RATIO (10-20); Calcium,Total 8.4 mg/dL (8.5-10.1); Chloride 112 mmol/L (98-107); Creatinine, Serum 0.52 mg/dL (0.55-1.02); EST Glomerular Filtration Rate 133 mL/min (>60); Est Glom Filt Rate - Afr Amer 161 mL/min (>60); Estimated Creatinine Clearance 100.92 ml/min; Globulin 3.5 g/dL (2.2-4.2); Glucose 161 mg/dL (74-106); Potassium 4.6 mmol/L (3.5-5.1); Sodium Level 141 mmol/L (136-145)
--- NOTE | 2023-02-07 06:41 | PN.SURG_ITS ---
Subjective Subjective Patient states her pain is much better since the ERCP denies any abdominal pain. Objective Data Objective Data Vital Signs: Vital Signs Temp Pulse Resp BP Pulse Ox O2 Del Method O2 Flow Rate 97.7 F L 69 18 124/77 H 98 Room Air 2 02/07/23 03:17 02/07/23 03:17 02/07/23 03:17 02/07/23 03:17 02/07/23 03:17 02/07/23 03:17 02/06/23 15:25 Oxygen Flow Rate (L/min) 2 Oxygen Delivery Method Room Air Weight: 175 lb 14.862 oz Body Mass Index (BMI) 33.2 Intake & Output: Intake and Output for Last 24 Hours 02/05/23 02/06/23 02/07/23 23:59 23:59 23:59 Intake Total 1520.83 / 1520.83 4675.00 / 4675.00 1895.83 / 1895.83 Balance 1520.83 / 1520.83 4675.00 / 4675.00 1895.83 / 1895.83 Lab / Micro Data 02/07/23 04:40 02/07/23 04:40 Labs: Laboratory Results - last 24 hr 02/07/23 04:40: WBC 6.5, RBC 3.82 L, Hgb 11.8 L, Hct 35.7 L, MCV 93.5, MCH 30.9, MCHC 33.1, RDW Std Deviation 43.7, RDW Coeff of Mihir 12.7, Plt Count 202, MPV 12.3 H, Immature Gran % (Auto) 0.600, Neut % (Auto) 85.9 H, Lymph % (Auto) 10.2 L, [place] % (Auto) 3.1, Eos % (Auto) 0.0, Baso % (Auto) 0.2, Absolute Neuts (auto) 5.6, Absolute Lymphs (auto) 0.66 L, Nucleated RBC % 0, Sodium 141, Potassium 4.6, Chloride 112 H, Carbon Dioxide 21.0, Anion Gap 8, BUN 9, Creatinine 0.52 L, Estim Creat Clear Calc 100.92, Est GFR (MDRD) Af Amer 161, Est GFR (MDRD) Non-Af 133, BUN/Creatinine Ratio 17.2, Glucose 161 H, Calcium 8.4 L, Total Bilirubin 1.30 H, AST 57 H, ALT 149 H, Alkaline Phosphatase 348 H, Total Protein 6.0 L, Albumin 2.5 L, Globulin 3.5, Albumin/Globulin Ratio 0.7 L Radiography Diagnostic Testing: Radiology Impression Abdomen Ultrasound 02/06/23 05:55 IMPRESSION: 1. Cholelithiasis. Mild thickening of the gallbladder wall without pericholecystic fluid 2. Nuclear medicine HIDA scan can be obtained for evaluation of acute cholecystitis 3. Mild dilatation of the CBD at 8 mm. Electronically Signed: James Wing MD at 16:01 EST Reading Location ID and State: [facility] / [place] , Service support , Physical Exam Const oriented x3 and no apparent distress Resp normal respiratory effort Cardio regular rate GI soft to palpation and non-tender Inspection: Negative for abdominal distention Assessment & Plan Assessment/Plan (1) Cholecystitis: (2) Acute gallstone pancreatitis: PLAN: Plan Plan for laparoscopic cholecystectomy today either by myself or Dr. Flores- depending on timing. Patient was agreeable with plan. Reviewed the anatomy with the patient and discussed the procedure: laparoscopic cholecystectomy with possible cholangiograms, possible open. Review risks including but not limited to bleeding, infection, hernia, bile leak, retained gallstones requiring another procedure ERCP- Endoscopic Retrograde Cholangiopancreatography, injury to another organ (bile ducts, common bile duct, small bowel, etc.) and conversion to an open procedure. All questions were answered. Kay Gross M.D. Pager: [phone] [facility] [address] [place] [address] [address] [place] [address] Office: [phone]
--- NOTE | 2023-02-07 07:12 | PN.HOSP_ITS ---
Reason for Visit Reason for Visit: Diagnoses Cholecystitis, unspecified (02/05/23) Biliary acute pancreatitis without necrosis or infection (02/05/23) Subjective Subjective Abdominal pain much improved after the stone removed from her bile ducts. Objective Data Objective Data Vital Signs: Vital Signs Temp Pulse Resp BP Pulse Ox O2 Del Method O2 Flow Rate 36.5 C L 69 18 124/77 H 98 Room Air 2 02/07/23 03:17 02/07/23 03:17 02/07/23 03:17 02/07/23 03:17 02/07/23 03:17 02/07/23 03:17 02/06/23 15:25 Oxygen Flow Rate (L/min) 2 Oxygen Delivery Method Room Air Weight: 79.8 kg Body Mass Index (BMI) 33.2 Intake & Output: Intake and Output for Last 24 Hours 02/05/23 02/06/23 02/07/23 23:59 23:59 23:59 Intake Total 1520.83 / 1520.83 4675.00 / 4675.00 1895.83 / 1895.83 Balance 1520.83 / 1520.83 4675.00 / 4675.00 1895.83 / 1895.83 Lab / Micro Data 02/07/23 04:40 02/07/23 04:40 Labs: Laboratory Results - last 24 hr 02/07/23 04:40: WBC 6.5, RBC 3.82 L, Hgb 11.8 L, Hct 35.7 L, MCV 93.5, MCH 30.9, MCHC 33.1, RDW Std Deviation 43.7, RDW Coeff of Mihir 12.7, Plt Count 202, MPV 12.3 H, Immature Gran % (Auto) 0.600, Neut % (Auto) 85.9 H, Lymph % (Auto) 10.2 L, Christian % (Auto) 3.1, Eos % (Auto) 0.0, Baso % (Auto) 0.2, Absolute Neuts (auto) 5.6, Absolute Lymphs (auto) 0.66 L, Nucleated RBC % 0, Sodium 141, Potassium 4.6, Chloride 112 H, Carbon Dioxide 21.0, Anion Gap 8, BUN 9, Creatinine 0.52 L, Estim Creat Clear Calc 100.92, Est GFR (MDRD) Af Amer 161, Est GFR (MDRD) Non-Af 133, BUN/Creatinine Ratio 17.2, Glucose 161 H, Calcium 8.4 L, Total Bilirubin 1.30 H, AST 57 H, ALT 149 H, Alkaline Phosphatase 348 H, Total Protein 6.0 L, Albumin 2.5 L, Globulin 3.5, Albumin/Globulin Ratio 0.7 L Radiography Diagnostic Testing: Radiology Impression Abdomen Ultrasound 02/06/23 05:55 IMPRESSION: 1. Cholelithiasis. Mild thickening of the gallbladder wall without pericholecystic fluid 2. Nuclear medicine HIDA scan can be obtained for evaluation of acute cholecystitis 3. Mild dilatation of the CBD at 8 mm. Electronically Signed: James Wing MD at 16:01 EST , Physical Exam Const alert and no apparent distress Resp normal respiratory effort, no retractions, no use of accessory muscles and clear to auscultation bilaterally Cardio regular rate, regular rhythm, S1 normal heart sound and S2 normal heart sound GI soft to palpation, non-tender and non-distended Extremity normal to inspection Neuro Sensorium / Orientation: awake and alert Psych affect normal Assessment & Plan Assessment/Plan (1) Acute gallstone pancreatitis: PLAN: Plan 1. Acute gallstone pancreatitis: * CT abdomen/pelvis shows pericholecystic fluid, mild enlargement of the pancreatic head and uncinate w/o discrete mass. * Plan for lap rose today. * ERCP showed choledocholithiasis w complete removal. Biliary sphincterotomy. Temporary stent placed. * Right upper quadrant sonogram shows cholelithiasis. Mild thickening of the GB w/o pericholecystic fluid. Mild dilation of CBD at 8mm. Chronic conditions: * Thyroid cancer status post thyroidectomy and postop hypothyroidism: Continue levothyroxine. Patient is on multiple vitamin D supplement, ferrous sulfate, zinc and other medication and will hold it until oral is permitted. * Chronic intermittent asthma/seasonal allergy: Patient not in asthma exacerbation. Hold cetirizine. DuoNeb as needed. DVT prophylaxis moderate risk: Lovenox 40 mg subcu daily. Charges/Coding Visit Charges Inpatient E&M: 29325 Subs Hosp L2
[2023-02-07] MEDS: 0.9% Normal Saline (250mL Bag) 250 ML 15 ML IV ×2 (09:30→22:23)
--- NOTE | 2023-02-07 10:09 | CASEMGMT ---
Face to Face with patient for initial transition planning/care coordination assessment. RN CM introduced self and role at [facility], pt voices understanding and is agreeable to participate in assessment with at bedside. Pt is resting comfortably in bed. Pt is A&Ox3 and is calm. Care providers, pharmacy, and demographics verified. Admitting dx:Pancreatitis LACE Strata: 3 PCP: Moe Specialists: (Jewelry Consultant), Amado (Gastric Surgeon [place]) Preferred Pharmacy: [facility] Insurance: [employer], pt states will be changing to UMR on 02/20/23. Prescription Benefit: Yes LNOK: Pierce Burdick () Living Arrangements: Pt reports living in a ranch home with 1-2 steps to enter with her and 2 sons. Pt denies any issues with ADLs/ IADLs or navigating steps. Transportation:Pt states she is capable of driving. DME/HHC/SNF: Denies history Pt?s goal/plan: Pt goal is to have surgery today and then DC home subsequently with the support of her . Denies any discharge needs at this time. Plan: Home with spouse.
[2023-02-07] MEDS: Lactated Ringers 1,000 ML 100 ML IV (11:19)
--- NOTE | 2023-02-07 15:19 | PN.GI_ITS ---
Subjective Subjective Patient underwent ERCP yesterday for gallstone induced pancreatitis and choledocholithiasis. She had several stones removed from the common bile duct after sphincterotomy, dilation was performed. She had a common bile duct stent that was placed temporarily yesterday. She was on 250 cc of LR after the procedure up until this morning. She developed a lot of swelling so was decreased down to 100 cc an hour. Objective Data Objective Data Vital Signs: Vital Signs Temp Pulse Resp BP Pulse Ox O2 Del Method O2 Flow Rate 98.2 F 78 18 111/60 96 Room Air 2 02/07/23 14:27 02/07/23 14:27 02/07/23 14:27 02/07/23 14:27 02/07/23 14:27 02/07/23 14:27 02/06/23 15:25 Oxygen Flow Rate (L/min) 2 Oxygen Delivery Method Room Air Weight: 175 lb 14.862 oz Body Mass Index (BMI) 33.2 Intake & Output: Intake and Output for Last 24 Hours 02/05/23 02/06/23 02/07/23 23:59 23:59 23:59 Intake Total 1520.83 / 1520.83 4675.00 / 4675.00 2917.41 / 2917.41 Balance 1520.83 / 1520.83 4675.00 / 4675.00 2917.41 / 2917.41 Lab / Micro Data 02/07/23 04:40 02/07/23 04:40 Labs: Laboratory Results - last 24 hr 02/07/23 04:40: WBC 6.5, RBC 3.82 L, Hgb 11.8 L, Hct 35.7 L, MCV 93.5, MCH 30.9, MCHC 33.1, RDW Std Deviation 43.7, RDW Coeff of Mihir 12.7, Plt Count 202, MPV 12.3 H, Immature Gran % (Auto) 0.600, Neut % (Auto) 85.9 H, Lymph % (Auto) 10.2 L, [place] % (Auto) 3.1, Eos % (Auto) 0.0, Baso % (Auto) 0.2, Absolute Neuts (auto) 5.6, Absolute Lymphs (auto) 0.66 L, Nucleated RBC % 0, Sodium 141, Potassium 4.6, Chloride 112 H, Carbon Dioxide 21.0, Anion Gap 8, BUN 9, Creatinine 0.52 L, Estim Creat Clear Calc 100.92, Est GFR (MDRD) Af Amer 161, Est GFR (MDRD) Non-Af 133, BUN/Creatinine Ratio 17.2, Glucose 161 H, Calcium 8.4 L, Total Bilirubin 1.30 H, AST 57 H, ALT 149 H, Alkaline Phosphatase 348 H, Total Protein 6.0 L, Albumin 2.5 L, Globulin 3.5, Albumin/Globulin Ratio 0.7 L Micro: Microbiology 02/05/23 22:30 Urine, Clean Catch Urine Culture - Preliminary Culture exhibits no growth. Radiography Diagnostic Testing: Radiology Impression Abdomen Ultrasound 02/06/23 05:55 IMPRESSION: 1. Cholelithiasis. Mild thickening of the gallbladder wall without pericholecystic fluid 2. Nuclear medicine HIDA scan can be obtained for evaluation of acute cholecystitis 3. Mild dilatation of the CBD at 8 mm. Electronically Signed: James Wing MD at 16:01 EST , Endo Retro Cholangiopancreatogram 02/06/23 14:28 IMPRESSION: Mildly dilated common bile duct with filling defects suggestive of choledocholithiasis. A biliary stent was placed. Electronically Signed: Elie Rodriguez MD at 10:31 EST , Physical Exam Const alert and no apparent distress Resp normal respiratory effort, no retractions, no use of accessory muscles and clear to auscultation bilaterally Cardio regular rate, regular rhythm, S1 normal heart sound and S2 normal heart sound GI soft to palpation, non-tender and non-distended Extremity normal to inspection Neuro Sensorium / Orientation: awake and alert Psych affect normal Assessment & Plan Assessment/Plan (1) Acute gallstone pancreatitis: (2) Choledocholithiasis: PLAN: Plan 47-year-old who presents with abdominal pain and discovered to have gallstone pancreatitis, cholestatic hepatitis with jaundice secondary to choledocholithiasis. She underwent ERCP with stone removal and stent placement. She is scheduled for laparoscopic cholecystectomy today. Recommend to continue IV fluids and pain medicine. Charges/Coding Visit Charges Inpatient E&M: 66199 Subs Hosp L3
--- NOTE | 2023-02-07 15:35 | PCM.PN.BLA ---
Progress Note Patient was visited during AM rounds. She confirms resolution of her pain as documented by Dr. Gross. Her abdominal exam is also reassuring. I discussed with her both procedural and postprocedural expectations. Neither she nor her family had additional questions. Therefore we will proceed to the operating room for laparoscopic cholecystectomy with intraoperative cholangiogram at the operating room availability. We did discuss that she would likely return to her room postoperatively and would tentatively plan for discharge tomorrow, 02/08/2023.
--- NOTE | 2023-02-07 16:40 | RAD_ITS ---
CLINICAL HISTORY: Female, 47 years old. Pain PROCEDURE: CHOLANGIOGRAM - intraoperative FLUOROSCOPY TIME (if supplied): (024) minutes/seconds TECHNIQUE: 2 cine loops from intraoperative fluoroscopy. Findings: There is contrast in the cystic duct and common bile duct. There are multiple filling defects suggesting stones. There is a biliary stent. RAD/Cholangiogram/ O R,Initial IMPRESSION: Intraoperative fluoroscopy. Electronically Signed: Ciaran Gray MD at 18:50 EST ,
[2023-02-07] MEDS: Bupivacaine Mpf 0.5% 30 ML VIAL (18:12)
--- NOTE | 2023-02-07 18:22 | OP.PCM_ITS ---
Report of Operation Date of Procedure: 02/07/23 Pre-Operative Diagnosis: Gallstone pancreatitis Post-Operative Diagnosis: Gallstone pancreatitis with evidence of chronic cholecystitis and persistent choledocholithiasis Surgery/Procedure Performed:: Laparoscopic cholecystectomy with intraoperative cholangiogram Surgeon: Grey Flores telephone operator chief: Jacquelyn Donohue telephone operator chief: Antonio Villanueva Type of Anesthesia: General/Supplemental Anesthesiologist: Tonny Frias Specimen's removed: Gallbladder and 2 free gallstones Estimated Blood Loss (mL): 25 Description of Procedure: After proper identification in the preoperative holding area the patient was brought to the operating room where she was positioned supine on the operating room table. Preoperatively SCDs were connected and antibiotics were administered. General anesthesia was then induced. Patient's abdomen was pre pped and draped in usual sterile fashion. A formal timeout was conducted to confirm both patient and the procedure. Procedure was begun with a supraumbilical incision which was extended deeply down to the level of the fascia. The fascia was elevated and incised, as well as the peritoneum. A finger sweep was performed to ensure there were no underlying adhesions and a 12 mm balloon trocar was inserted. Pneumoperitoneum was established at 15 mmHg. 3 additional trocars were placed in the epigastrium and in the right upper quadrant (3 x 5 mm). Inspection of the peritoneum revealed no inadvertent injury to the viscera below. The gallbladder was visualized with a moderate degree of chronic?appearing inflammation and thin adhesions to the second portion of the duodenum below. These adhesions were taken down bluntly and then the gallbladder fundus was then grasped and elevated cephalad. Then, using careful dissection the peritoneum was opened and the structures of the hepatocystic triangle were delineated. The gallbladder neck and junction with the cystic duct were carefully dissected of all overlying soft tissue, however, as I proceeded with more proximal dissection I found myself below the level of the Rouviere's sulcus with a persistently dilated duct despite all efforts at clearing the duct of the adherent cystic artery and other lymphatics. Therefore I thought it best to obtain a cholangiogram to confirm the anatomy and a Barker clamp was placed across the distal cystic duct and the catheter was inserted into the duct with ease. Under fluoroscopy a cholangiogram was then obtained showing a foreshortened cystic duct flowing into a common bile duct with at least 5 common bile duct stones partially obstructing antegrade flow of contrast into the duodenum. There was also retrograde flow through the common hepatic duct into the right and left hepatic ducts. Unable to reach the stones with the means available to me I saw up to effectively ligate the cystic duct. However, it was too large for accommodating our traditional clips so I sharply divided the duct beneath a clamped grasper (precluding spillage of bile and gallstones from the field above) and then obtained a 0 PDS vessel loop which was cinched around the cut edge of the cystic duct. Then the cystic artery was triply clipped and sharply divided as it was proceeding over the body of the gallbladder. Yet, with additional dissection I identified at least 2 other main branches of the artery also terminating within the gallbladder and these also were doubly clipped and divided. The gallbladder was then removed from the gallbladder fossa with the use of electrocautery. Selective electrocautery was used to obtain hemostasis in the gallbladder fossa. It is noted that 2 gallstones were spilled during the cystic duct transection and these were set aside for removal alongside the gallbladder. The gallbladder was placed in an Endo Catch bag along with gallstones and removed from the peritoneum (after sharply enlarging our supraumbilical port site to accommodate the specimen). Morison's pouch was irrigated and the effluent was suctioned free of the peritoneum. Hemostasis was again confirmed. Pneumoperitoneum was evacuated and the fascia of the upper umbilical port site was closed with #1Vicryl in a series of 2 [id number] sutures. A total of 30 mL of anesthetic was injected at the port sites for postoperative pain control. The skin of each port site was then closed in subcuticular fashion using 4-0 Monocryl. Steri-Strips and bandages were applied as dressings. Patient tolerated the procedure well without any apparent complications. On emergence from their anesthetic the patient was taken to PACU for ongoing recovery. Complications None Admit VTE Documentation VTE Mechan Device Prophylaxis: SCD's Procedures Digestive 40xxx-49xxx: 39860 Laparo cholecystectomy/graph
[2023-02-07] MEDS: 0.9% Saline Lock 10 ML Syringe IV (22:23)
[2023-02-07] MEDS: Acetaminophen 325 MG Tablet 650 MG PO (22:32)
[2023-02-08] VITALS (11 sets, daily range): BP systolic 108–135; BP diastolic 71–88; PULSE 61–98; RESP 16–18; TEMP 36.2–37.2; O2SAT 95–100; BMI 33.2
--- NOTE | 2023-02-08 | GALL_PTH ---
PATIENT: MICHAEL CHOUDHURY LOC: MS3 U#:[id number] AGE/SX: 47/F ROOM: [facility] [place]05[place]: Dr. Rell Baldwin DO : 1975 BED: 1 DIS: 02/09/2023 SPEC #: [id number] RECD: 02/08/23 13:52 STATUS: TATUM RENitesh #: [id number] SAHIL: 02/08/23 00:[address]: Per Orozco DEPT: SURGICAL PATHOLOGY RECD BY: Nathan Mejía ENTERED: 02/08/23 13:52 SP TYPE: GALLBLADDE OTHR DR: MD Dr. Rell Álvarez DO Dr. John E Schinner, MD Dr. Prakash Chand, MD Tissues: Gallbladder, NOS Procedures: Surgery Specimen Level III Comments: @ Ordering doctor for SUIII edited from to @ by LIOR at 02/09/23 0836 @ Submitting doctor edited from to @ by RGOOD at 02/09/23 0836 HEADER OPERATION: Laparoscopic, cholecystectomy with IOC PRE-OP DIAGNOSIS: Acute gallstone pancreatitis TISSUE SUBMITTED: Gallbladder MICROSCOPIC DIAGNOSIS Gallbladder, cholecystectomy: Chronic cholecystitis and cholelithiasis. AM:dewayne 02/09/2023 MICROSCOPIC DESCRIPTION Slides are reviewed. GROSS DESCRIPTION Received is one container labeled with the patient's name and designated gallbladder. The specimen consists of a gallbladder measuring 7.5 cm in length and up to 2.5 cm in diameter. The external surface is pink-ann, smooth and glistening for the most part. Focally it is granular, hemorrhagic and contains cautery artifact. The gallbladder contains a small amount of ann, mucoid bile. Present in the container and also in the gallbladder are multiple orange, multifaceted stones measuring in aggregate 5.0 x 5.0 x 2.0 cm. The mucosa is bile-stained and without any mass lesions. The gallbladder wall measures up to 0.5 cm in thickness. Increased amount of subserosal fat is noted. Cabinet Maker sections from the gallbladder and the cystic duct are submitted in one cassette. / SJ:dewayne 02/08/2023 TC:3 CPT: 28834
[2023-02-08] MEDS: Lactated Ringers 1,000 ML 100 ML IV ×2 (00:26→10:41)
[2023-02-08 02:33] LABS: Internal QC Validated? YES +Cl - CLEAR BKGD
[2023-02-08 02:34] LABS: Pregnancy, Serum, hCG Quali. NEGATIVE Negative
[2023-02-08 03:58] LABS: Absolute Lymphocyte Count 0.95 X10^3/uL (0.83-4.51); Absolute Neutrophil Count 7.6 X10^3/uL (2.0-7.7); Basophil# 0.01 X10^3/uL; Basophil% 0.1 % (0-1); Hematocrit 32.1 % (37-47); Hemoglobin 10.2 g/dL (12.0-15.0); Lymphocyte # 0.95 X10^3/ul (0.83-4.51); Lymphocyte % 10.7 % (19-41); Mean Corp Hgb Conc 31.8 g/dL (32-36); Mean Corpuscular Hgb 29.9 pg (27.0-32.0); Mean Corpuscular Volume 94.1 fL (81-99); Mean Platelet Vol. 12.8 fl (6.2-12.0); Monocyte% 3.4 % (0-10); NRBC Flagged by Analyzer 0 % (0-5); Neutrophil # 7.55 X10^3/uL (2.7-7.7); Neutrophil % 85.3 % (47-70); Platelet Count 221 K/mm3 (150-450); RBC Distribution Width CV 13.2 % (11.6-14.6); RBC Distribution Width SD 45.4 fl (35.1-43.9); Red Blood Count 3.41 M/mm3 (4.2-5.4); White Blood Count 8.9 K/mm3 (4.4-11.0)
[2023-02-08 04:15] LABS: ALB/GLOB Ratio 0.8 RATIO (0.9-2.4); AST(SGOT) 48 U/L (15-37); Alanine Aminotransfer ALT/SGPT 120 U/L (13-56); Albumin, Serum 2.5 g/dL (3.2-5.0); Alkaline Phosphatase 257 U/L (45-117); Anion Gap 8 (5-15); BUN 9 mg/dL (7-18); Chloride 109 mmol/L (98-107); Creatinine, Serum 0.56 mg/dL (0.55-1.02); EST Glomerular Filtration Rate 122 mL/min (>60); Est Glom Filt Rate - Afr Amer 148 mL/min (>60); Estimated Creatinine Clearance 93.72 ml/min; Globulin 3.1 g/dL (2.2-4.2); Glucose 152 mg/dL (74-106); Potassium 4.3 mmol/L (3.5-5.1); Protein, Total 5.6 g/dL (6.4-8.2); Sodium Level 140 mmol/L (136-145)
[2023-02-08] MEDS: Piperacil/Tazobactam 3.375 GM in 0.9% Normal Saline (50mL MB+) 50 ML IV ×3 (05:32→21:08)
[2023-02-08] MEDS: Acetaminophen 325 MG Tablet 650 MG PO ×2 (05:33→21:09)
[2023-02-08] MEDS: Levothyroxine 150 MCG Tablet PO (05:33)
--- NOTE | 2023-02-08 07:55 | PN.HOSP_ITS ---
Reason for Visit Reason for Visit: Diagnoses Cholecystitis, unspecified (02/05/23) Biliary acute pancreatitis without necrosis or infection (02/05/23) Subjective Subjective Feels well. Some generalized abdominal pain. Objective Data Objective Data Vital Signs: Vital Signs Temp Pulse Resp BP Pulse Ox O2 Del Method O2 Flow Rate 37 C 78 18 135/73 H 99 Room Air 2 02/08/23 05:30 02/08/23 05:30 02/08/23 05:30 02/08/23 05:30 02/08/23 05:30 02/08/23 05:30 02/08/23 00:27 Oxygen Flow Rate (L/min) 2 Oxygen Delivery Method Room Air Weight: 79.8 kg Body Mass Index (BMI) 33.2 Intake & Output: Intake and Output for Last 24 Hours 02/06/23 02/07/23 02/08/23 23:59 23:59 23:59 Intake Total 5075.00 / 5075.00 4395.16 / 4395.16 549.17 / 549.17 Output Total 500 / 500 500 / 500 Balance 4575.00 / 4575.00 4395.16 / 4395.16 49.17 / 49.17 Lab / Micro Data 02/08/23 03:15 02/08/23 03:15 Labs: Laboratory Results - last 24 hr 02/07/23 04:40: Serum , Qual NEGATIVE 02/08/23 03:15: WBC 8.9, RBC 3.41 L, Hgb 10.2 L, Hct 32.1 L, MCV 94.1, MCH 29.9, MCHC 31.8 L, RDW Std Deviation 45.4 H, RDW Coeff of Mihir 13.2, Plt Count 221, MPV 12.8 H, Immature Gran % (Auto) 0.500, Neut % (Auto) 85.3 H, Lymph % (Auto) 10.7 L, [place] % (Auto) 3.4, Eos % (Auto) 0.0, Baso % (Auto) 0.1, Absolute Neuts (auto) 7.6, Absolute Lymphs (auto) 0.95, Nucleated RBC % 0, Sodium 140, Potassium 4.3, Chloride 109 H, Carbon Dioxide 23.0, Anion Gap 8, BUN 9, Creatinine 0.56, Estim Creat Clear Calc 93.72, Est GFR (MDRD) Af Amer 148, Est GFR (MDRD) Non-Af 122, BUN/Creatinine Ratio 16.0, Glucose 152 H, Calcium 8.0 L, Total Bilirubin 0.80, AST 48 H, ALT 120 H, Alkaline Phosphatase 257 H, Total Protein 5.6 L, Albumin 2.5 L, Globulin 3.1, Albumin/Globulin Ratio 0.8 L Micro: Microbiology 02/05/23 22:30 Urine, Clean Catch Urine Culture - Preliminary Culture exhibits no growth. Radiography Diagnostic Testing: Radiology Impression Abdomen Ultrasound 02/06/23 05:55 IMPRESSION: 1. Cholelithiasis. Mild thickening of the gallbladder wall without pericholecystic fluid 2. Nuclear medicine HIDA scan can be obtained for evaluation of acute cholecystitis 3. Mild dilatation of the CBD at 8 mm. Electronically Signed: James Wing MD at 16:01 EST , Endo Retro Cholangiopancreatogram 02/06/23 14:28 IMPRESSION: Mildly dilated common bile duct with filling defects suggestive of choledocholithiasis. A biliary stent was placed. Electronically Signed: Elie Rodriguez MD at 10:31 EST , Cholangiogram 02/07/23 16:40 IMPRESSION: Intraoperative fluoroscopy. Electronically Signed: Ciaran Gray MD at 18:50 EST , Physical Exam Const alert and no apparent distress HEENT head/scalp atraumatic and moist oral mucous membranes Resp normal respiratory effort, no retractions, no use of accessory muscles and clear to auscultation bilaterally Cardio regular rate, regular rhythm, S1 normal heart sound and S2 normal heart sound GI normal to inspection, nondistended, normoactive bowel sounds and soft to palpation Neuro Sensorium / Orientation: awake and alert Assessment & Plan Assessment/Plan (1) Acute gallstone pancreatitis: PLAN: Plan 1. Acute gallstone pancreatitis: * CT abdomen/pelvis shows pericholecystic fluid, mild enlargement of the biswas creatic head and uncinate w/o discrete mass. * ERCP showed choledocholithiasis w complete removal. Biliary sphincterotomy. Temporary stent placed. * Right upper quadrant sonogram shows cholelithiasis. Mild thickening of the GB w/o pericholecystic fluid. Mild dilation of CBD at 8mm. * Lap Carla 02/07. DW Dr. Flores, pt still with choledocholithiasis. GI to reeval. Chronic conditions: * Thyroid cancer status post thyroidectomy and postop hypothyroidism: Continue levothyroxine. Patient is on multiple vitamin D supplement, ferrous sulfate, zinc and other medication and will hold it until oral is permitted. * Chronic intermittent asthma/seasonal allergy: Patient not in asthma exacerbation. Hold cetirizine. DuoNeb as needed. DVT prophylaxis moderate risk: Lovenox 40 mg subcu daily. Charges/Coding Visit Charges Inpatient E&M: 57974 Subs Hosp L2
--- NOTE | 2023-02-08 12:10 | PN.SURG_ITS ---
Subjective Subjective Patient was seen and examined during AM rounds. She reported minimal postoperative discomfort. She is tolerating clear liquids before being made n.p.o. at midnight. Objective Data Objective Data Vital Signs: Vital Signs Temp Pulse Resp BP Pulse Ox O2 Del Method O2 Flow Rate 98.3 F 82 18 133/88 H 99 Room Air 2 02/08/23 09:15 02/08/23 09:15 02/08/23 09:15 02/08/23 09:15 02/08/23 09:15 02/08/23 09:15 02/08/23 00:27 Oxygen Flow Rate (L/min) 2 Oxygen Delivery Method Room Air Weight: 175 lb 14.862 oz Body Mass Index (BMI) 33.2 Intake & Output: Intake and Output for Last 24 Hours 02/06/23 02/07/23 02/08/23 23:59 23:59 23:59 Intake Total 5075.00 / 5075.00 4395.16 / 4395.16 1599.17 / 1599.17 Output Total 500 / 500 500 / 500 Balance 4575.00 / 4575.00 4395.16 / 4395.16 1099.17 / 1099.17 Lab / Micro Data 02/08/23 03:15 02/08/23 03:15 Labs: Laboratory Results - last 24 hr 02/07/23 04:40: Serum , Qual NEGATIVE 02/08/23 03:15: WBC 8.9, RBC 3.41 L, Hgb 10.2 L, Hct 32.1 L, MCV 94.1, MCH 29.9, MCHC 31.8 L, RDW Std Deviation 45.4 H, RDW Coeff of Mihir 13.2, Plt Count 221, MPV 12.8 H, Immature Gran % (Auto) 0.500, Neut % (Auto) 85.3 H, Lymph % (Auto) 10.7 L, [place] % (Auto) 3.4, Eos % (Auto) 0.0, Baso % (Auto) 0.1, Absolute Neuts (auto) 7.6, Absolute Lymphs (auto) 0.95, Nucleated RBC % 0, Sodium 140, Potassium 4.3, Chloride 109 H, Carbon Dioxide 23.0, Anion Gap 8, BUN 9, Creatinine 0.56, Estim Creat Clear Calc 93.72, Est GFR (MDRD) Af Amer 148, Est GFR (MDRD) Non-Af 122, BUN/Creatinine Ratio 16.0, Glucose 152 H, Calcium 8.0 L, Total Bilirubin 0.80, AST 48 H, ALT 120 H, Alkaline Phosphatase 257 H, Total Protein 5.6 L, Albumin 2.5 L, Globulin 3.1, Albumin/Globulin Ratio 0.8 L Micro: Microbiology 02/05/23 22:30 Urine, Clean Catch Urine Culture - Final Culture exhibits no growth. Radiography Diagnostic Testing: Radiology Impression Cholangiogram 02/07/23 16:40 IMPRESSION: Intraoperative fluoroscopy. Electronically Signed: Ciaran Gray MD at 18:50 EST , Physical Exam Const oriented x3 and no apparent distress Resp normal respiratory effort GI GI Narrative: Nondistended, port sites remain covered with operative dressings and there is slight bloody strikethrough of patient's supraumbilical port site?otherwise the dressings are unremarkable. Patient has mild tenderness expected around the port sites superficially but no deep tenderness. Assessment & Plan Assessment/Plan (1) Cholecystitis: (2) Choledocholithiasis: (3) Acute gallstone pancreatitis: PLAN: Plan This is a 47-year-old female postoperative day 1 from laparoscopic cholecystectomy with intraoperative cholangiogram for gallstone pancreatitis and choledocholithiasis. Preoperatively she was found to have evidence of chronic cholecystitis as well as persistent choledocholithiasis. The latter was already reported to both patient's primary hospitalist service as well as gastroenterology. Repeat ERCP is tentatively pending for this afternoon. Patient's abdomen is benign and appropriate following her operation yesterday. I have given her wound care instructions (dressings may be discontinued tomorrow and patient may begin showering) as well as expectation to follow-up as an outpatient in approximately 2 weeks. She expresses understanding of this information. Charges/Coding Visit Charges Inpatient E&M: 76515 Subs Hosp L2
[2023-02-08] MEDS: 0.9% Saline Lock 10 ML Syringe IV (12:56)
[2023-02-08] MEDS: Morphine 2 MG/ML Syringe IV (12:56)
--- NOTE | 2023-02-08 16:30 | RAD_ITS ---
STUDY: FLUOROSCOPICALLY GUIDED ERCP. REASON FOR EXAM: Female, 47 years old. PAIN FLUOROSCOPY TIME (if supplied): (92.6) seconds TECHNIQUE: Fluoroscopic guidance was provided for ERCP procedure. The radiologist was not present in the room. 9 images were obtained during the exam. The DLP is 31.81 mgy. COMPARISON: None. FINDINGS: There are multiple filling defects identified on first images following contrast administration throughout the common bile duct which may indicate stones versus air bubbles, largest measuring. Guiding wire isn''t sweeping balloon seen through the common bile duct. Borderline distention of the gallbladder seen. RAD/ERCP Biliary/Pancreas IMPRESSION: Fluoroscopically guided ERCP procedure as described. For details please see operative report. Electronically Signed: Irais He MD at 19:20 EST ,
--- NOTE | 2023-02-08 17:04 | OP.ERCP_ITS ---
Patient Name: Laquita Burdick Procedure Date: 02/08/2023 3:54 PM Date of : 1975 Age: 47 Procedure: ERCP Indications: Bile duct stone(s) Providers: Jose Irby DO Medicines: Monitored Anesthesia Care Patient Profile: This is a 47 year old female. Refer to note in patient chart for documentation of history and physical. Patient has symptoms of acute right upper quadrant abdominal pain, acute jaundice and acute nausea. Her most recent ERCP for stent and ERCP for stone removal was recently. She is status post laparoscopic cholecystectomy recently. Complications: No immediate complications. Procedure: Pre-Anesthesia Assessment: - Prior to the procedure, a History and Physical was performed, and patient medications and allergies were reviewed. The patient is competent. The risks and benefits of the procedure and the sedation options and risks were discussed with the patient. All questions were answered and informed consent was obtained. Patient identification and proposed procedure were verified by the physician in the pre-procedure area. Mental Status Examination: alert and oriented. Airway Examination: normal oropharyngeal airway and neck mobility. Respiratory Examination: clear to auscultation. CV Examination: normal. Prophylactic Antibiotics: The patient does not require prophylactic antibiotics. Prior Anticoagulants: The patient has taken no anticoagulant or antiplatelet agents. ASA Grade Assessment: II - A patient with mild systemic disease. After reviewing the risks and benefits, the patient was deemed in satisfactory condition to undergo the procedure. The anesthesia plan was to use monitored anesthesia care (MAC). Immediately prior to administration of medications, the patient was re-assessed for adequacy to receive sedatives. The heart rate, respiratory rate, oxygen saturations, blood pressure, adequacy of pulmonary ventilation, and response to care were monitored throughout the procedure. The physical status of the patient was re-assessed after the procedure. After obtaining informed consent, the scope was passed under direct vision. Throughout the procedure, the patient's blood pressure, pulse, and oxygen saturations were monitored continuously. The Duodenoscope was introduced through the mouth, and advanced to the duodenum and used to cannulate the bile duct. The ERCP was accomplished without difficulty. The patient tolerated the procedure well. Scope In: 4:36:51 PM Scope Out: 4:49:25 PM Total Procedure Duration Time 0 hours 12 minutes 34 seconds Findings: The program director scouting film was normal. The esophagus was successfully intubated under direct vision. The scope was advanced to a normal major papilla in the descending duodenum without detailed examination of the pharynx, larynx and associated structures, and upper GI tract. The upper GI tract was grossly normal. The bile duct was deeply cannulated with the short-nosed traction sphincterotome. Contrast was injected. I personally interpreted the bile duct images. There was brisk flow of contrast through the ducts. Image quality was excellent. Contrast extended to the entire biliary tree. Opacification of the entire biliary tree except for the cystic duct and gallbladder was successful. The maximum diameter of the ducts was 10 mm. The lower third of the main bile duct and middle third of the main bile duct contained multiple stones, the largest of which was 9 mm in diameter. The entire biliary tree except for the cystic duct and gallbladder and main bile duct were moderately dilated and diffusely dilated, with a stone causing an obstruction. The largest diameter was 10 mm. A straight Roadrunner wire was passed into the biliary tree. A 5 mm biliary sphincterotomy was made with a traction (standard) sphincterotome using ERBE electrocautery. There was no post-sphincterotomy bleeding. The biliary tree was swept with a 15 mm balloon starting at the bifurcation, left intrahepatic duct(s) and right intrahepatic duct(s). Sludge was swept from the duct. All stones were removed. The biliary tree contained one temporary stent. This was found to be visibly patent. The stent was removed using a snare. It was shown to be partially occluded via the water column test. A 10 Fr by 7 cm temporary stent was placed 5 cm into the biliary tree. Clear fluid flowed through the stent. The stent was in good position. Impression: - The entire main bile duct was moderately dilated, with a stone causing an obstruction. - Choledocholithiasis was found. Complete removal was accomplished by biliary sphincterotomy and balloon extraction. - A biliary sphincterotomy was performed. - The biliary tree was swept. - One stent was exchanged in the biliary tree. Procedure Code(s): --- Professional --- 48520, Endoscopic retrograde cholangiopancreatography (ERCP); with removal and exchange of stent(s), biliary or pancreatic duct, including pre- and post-dilation and guide wire passage, when performed, including sphincterotomy, when performed, each stent exchanged 67880, Endoscopic retrograde cholangiopancreatography (ERCP); with removal of calculi/debris from biliary/pancreatic duct(s) 15513, 26, Endoscopic catheterization of the biliary ductal system, radiological supervision and interpretation CPT copyright 2021 [employer]. All rights reserved. The codes documented in this report are preliminary and upon financial institution branch manager review may be revised to meet current compliance requirements. Jose Irby DO 02/08/2023 5:03:53 PM This report has been signed electronically. Number of Addenda: 0 Note Initiated On: 02/08/2023 3:54 PM
--- NOTE | 2023-02-08 17:04 | OP.CCLET_ITS ---
02/08/2023 Sage Rosa [address] [place] [address] Re : ERCP procedure for Laquita Burdick Dear Dr. Rosa This procedure was performed on Wednesday, February 08, 2023. My impressions and recommendations are as follows: Impressions : - The entire main bile duct was moderately dilated, with a stone causing an obstruction. - Choledocholithiasis was found. Complete removal was accomplished by biliary sphincterotomy and balloon extraction. - A biliary sphincterotomy was performed. - The biliary tree was swept. - One stent was exchanged in the biliary tree. Recommendations : My findings are described in the full procedure note, which is enclosed. If I can be of further assistance, please feel free to contact me at . Sincerely, Jose Irby, 02/08/2023 5:03:53 PM This report has been signed electronically.
[2023-02-08] MEDS: Ensure Clear 120 ML Liquid PO (18:42)
[2023-02-08] MEDS: 0.9% Normal Saline (250mL Bag) 250 ML 15 ML IV (21:09)
[2023-02-09 01:49] VITALS: BP 116/77; PULSE 105; RESP 16; TEMP 36.9; O2SAT 94
[2023-02-09] MEDS: Lactated Ringers 1,000 ML 100 ML IV (02:33)
[2023-02-09 05:09] VITALS: BMI 33.3
[2023-02-09] MEDS: Levothyroxine 150 MCG Tablet PO (05:37)
[2023-02-09] MEDS: Piperacil/Tazobactam 3.375 GM in 0.9% Normal Saline (50mL MB+) 50 ML IV (05:37)
[2023-02-09 05:44] VITALS: BP 140/84; PULSE 61; RESP 16; TEMP 36.7; O2SAT 98
[2023-02-09 06:50] LABS: Absolute Lymphocyte Count 1.21 X10^3/uL (0.83-4.51); Absolute Neutrophil Count 4.2 X10^3/uL (2.0-7.7); Eosinophil# 0.01 X10^3/uL; Eosinophils% 0.2 % (0-5); Hematocrit 32.1 % (37-47); Hemoglobin 10.1 g/dL (12.0-15.0); Lymphocyte # 1.21 X10^3/ul (0.83-4.51); Lymphocyte % 20.7 % (19-41); Mean Corp Hgb Conc 31.5 g/dL (32-36); Mean Corpuscular Hgb 29.8 pg (27.0-32.0); Mean Corpuscular Volume 94.7 fL (81-99); Monocyte# 0.37 X10^3/uL; Monocyte% 6.3 % (0-10); NRBC Flagged by Analyzer 0 % (0-5); Neutrophil # 4.24 X10^3/uL (2.7-7.7); Neutrophil % 72.5 % (47-70); Platelet Count 213 K/mm3 (150-450); RBC Distribution Width SD 45.3 fl (35.1-43.9); Red Blood Count 3.39 M/mm3 (4.2-5.4); White Blood Count 5.9 K/mm3 (4.4-11.0)
--- NOTE | 2023-02-09 06:52 | PN.HOSP_ITS ---
Reason for Visit Reason for Visit: Diagnoses Calculus of bile duct without cholangitis or cholecystitis without obstruction (02/05/23) Cholecystitis, unspecified (02/05/23) Biliary acute pancreatitis without necrosis or infection (02/05/23) Subjective Subjective Feels well. No events. Objective Data Objective Data Vital Signs: Vital Signs Temp Pulse Resp BP Pulse Ox O2 Del Method O2 Flow Rate 36.7 C 61 16 140/84 H 98 Room Air 4 02/09/23 05:44 02/09/23 05:44 02/09/23 05:44 02/09/23 05:44 02/09/23 05:44 02/09/23 05:44 02/08/23 17:05 Oxygen Flow Rate (L/min) 4 Oxygen Delivery Method Room Air Weight: 79.9 kg Body Mass Index (BMI) 33.3 Intake & Output: Intake and Output for Last 24 Hours 02/07/23 02/08/23 02/09/23 23:59 23:59 23:59 Intake Total 4395.16 / 4395.16 2749.17 / 2749.17 350 / 350 Output Total 1500 / 1500 Balance 4395.16 / 4395.16 1249.17 / 1249.17 350 / 350 Lab / Micro Data 02/09/23 05:55 02/09/23 05:55 Labs: Laboratory Results - last 24 hr 02/09/23 05:55: WBC 5.9, RBC 3.39 L, Hgb 10.1 L, Hct 32.1 L, MCV 94.7, MCH 29.8, MCHC 31.5 L, RDW Std Deviation 45.3 H, RDW Coeff of Mihir 13.0, Plt Count 213, MPV 13.0 H, Immature Gran % (Auto) 0.300, Neut % (Auto) 72.5 H, Lymph % (Auto) 20.7, [place] % (Auto) 6.3, Eos % (Auto) 0.2, Baso % (Auto) 0.0, Absolute Neuts (auto) 4.2, Absolute Lymphs (auto) 1.21, Nucleated RBC % 0 Micro: Microbiology 02/05/23 22:30 Urine, Clean Catch Urine Culture - Final Culture exhibits no growth. Radiography Diagnostic Testing: Radiology Impression Endo Retro Cholangiopancreatogram 12/20/23 16:30 IMPRESSION: Fluoroscopically guided ERCP procedure as described. For details please see operative report. Electronically Signed: Irais He MD at 19:20 EST , Physical Exam Const alert and no apparent distress Resp normal respiratory effort, no retractions, no use of accessory muscles and clear to auscultation bilaterally Cardio regular rate, regular rhythm, S1 normal heart sound and S2 normal heart sound GI normal to inspection, nondistended, normoactive bowel sounds Assessment & Plan Assessment/Plan (1) Acute gallstone pancreatitis: PLAN: Plan 1. Acute gallstone pancreatitis: * CT abdomen/pelvis shows pericholecystic fluid, mild enlargement of the pancreatic head and uncinate w/o discrete mass. * ERCP showed choledocholithiasis w complete removal. Biliary sphincterotomy. Temporary stent placed. * Right upper quadrant sonogram shows cholelithiasis. Mild thickening of the GB w/o pericholecystic fluid. Mild dilation of CBD at 8mm. * Lap Carla 02/07. DW Dr. Flores, pt still with choledocholithiasis. * ERCP repeated on 02/08: with choledocholithiasis removal, sphincterotomy. Stent exchange. * On empiric pip/tazo. Chronic conditions: * Thyroid cancer status post thyroidectomy and postop hypothyroidism: Continue levothyroxine. Patient is on multiple vitamin D supplement, ferrous sulfate, zinc and other medication and will hold it until oral is permitted. * Chronic intermittent asthma/seasonal allergy: Patient not in asthma exace rbation. Hold cetirizine. DuoNeb as needed. DVT prophylaxis moderate risk: Lovenox 40 mg subcu daily.
--- NOTE | 2023-02-09 07:21 | PN.SURG_ITS ---
Subjective Subjective Patient evaluated resting comfortably in bed. She notes slight discomfort at the epigastric incision/region, however improving. She denies abdominal pain otherwise. She denies nausea, vomiting, fever. She is tolerating full liquids. She is urinating well. Objective Data Objective Data Vital Signs: Vital Signs Temp Pulse Resp BP Pulse Ox O2 Del Method O2 Flow Rate 98.0 F 61 16 140/84 H 98 Room Air 4 02/09/23 05:44 02/09/23 05:44 02/09/23 05:44 02/09/23 05:44 02/09/23 05:44 02/09/23 05:44 02/08/23 17:05 Oxygen Flow Rate (L/min) 4 Oxygen Delivery Method Room Air Weight: 176 lb 2.389 oz Body Mass Index (BMI) 33.3 Intake & Output: Intake and Output for Last 24 Hours 02/07/23 02/08/23 02/09/23 23:59 23:59 23:59 Intake Total 4395.16 / 4395.16 2749.17 / 2749.17 350 / 350 Output Total 1500 / 1500 Balance 4395.16 / 4395.16 1249.17 / 1249.17 350 / 350 Lab / Micro Data 02/09/23 05:55 02/09/23 05:55 Labs: Laboratory Results - last 24 hr 02/09/23 05:55: WBC 5.9, RBC 3.39 L, Hgb 10.1 L, Hct 32.1 L, MCV 94.7, MCH 29.8, MCHC 31.5 L, RDW Std Deviation 45.3 H, RDW Coeff of Mihir 13.0, Plt Count 213, MPV 13.0 H, Immature Gran % (Auto) 0.300, Neut % (Auto) 72.5 H, Lymph % (Auto) 20.7, [place] % (Auto) 6.3, Eos % (Auto) 0.2, Baso % (Auto) 0.0, Absolute Neuts (auto) 4.2, Absolute Lymphs (auto) 1.21, Nucleated RBC % 0 Micro: Microbiology 02/05/23 22:30 Urine, Clean Catch Urine Culture - Final Culture exhibits no growth. Radiography Diagnostic Testing: Radiology Impression Endo Retro Cholangiopancreatogram 02/08/23 16:30 IMPRESSION: Fluoroscopically guided ERCP procedure as described. For details please see operative report. Electronically Signed: Irais He MD at 19:20 EST , Physical Exam GI soft to palpation GI Narrative: Abdomen- incisions c/d/i. No erythema or infection noted. Op-sites were removed. Auscultation: normoactive bowel sounds Palpation: soft and tender epigastric Assessment & Plan Assessment/Plan (1) Choledocholithiasis: (2) Acute gallstone pancreatitis: PLAN: Plan I have evaluated this patient in conjunction with Dr. Flores. Patient seems to be progressing very well from her multiple procedures We have reviewed discharge instructions Will increase patient's diet to regular/low fat From a surgical standpoint, patient is ready for discharge today Charges/Coding Visit Charges Inpatient E&M: 04256 Subs Hosp L1 (post-op; no charge)
[2023-02-09 07:25] LABS: Anion Gap 5 (5-15); BUN 6 mg/dL (7-18); BUN/Creat Ratio 10.6 RATIO (10-20); Calcium,Total 8.4 mg/dL (8.5-10.1); Chloride 109 mmol/L (98-107); Creatinine, Serum 0.57 mg/dL (0.55-1.02); EST Glomerular Filtration Rate 121 mL/min (>60); Est Glom Filt Rate - Afr Amer 146 mL/min (>60); Estimated Creatinine Clearance 92.07 ml/min; Glucose 125 mg/dL (74-106); Potassium 3.8 mmol/L (3.5-5.1); Sodium Level 142 mmol/L (136-145)
[2023-02-09 07:42] VITALS: BP 124/74; PULSE 61; RESP 16; TEMP 37.3; O2SAT 98
--- NOTE | 2023-02-09 07:47 | PCM.DC ---
Discharge Instructions Diet Discharge Diet: Low fat / Low cholesterol Activity Discharge Activity: May Not Drive (while taking narcotic pain medication) Lifting Restrictions: Nothing greater than 15 pounds for 2 weeks Dressing / Incision Call your doctor if your incision/area has: Continuous Slow Oozing, Sudden Increased Bleeding, Increased Pain/ Swelling, Increased Redness, Foul Smelling Discharge and Swelling at the incision site Call your doctor if you observe: Fever of 101 or Higher Suture Line Care: Avoid Pulling/Pushing and Avoid Pinching/Bending Change Dressing in: leave in place till F/U (Leave steri-strips on until follow-up appointment) Cleanse incision/area with: Soap & Water Follow Up Care Please Follow Up With: Grey Flores MD When: Please call our office at [phone] to schedule a follow-up appointment 2 weeks from discharge Test Results: Test results from this visit will be discussed in further detail at your follow-up appointment, if applicable. Discharge Plan Admission Admit Date/Time: 02/05/23 17:14 Attending Provider: Rell Baldwin Primary Care Provider: Sage Rosa Consulting Providers: Per Orozco; Bert López Instructions Additional Instructions / Restrictions: Recommend Tylenol 650 mg every 6 hours as needed for pain/discomfort. Discharge Orders/Prescriptions Prescriptions: No Action Complete Multivitamin tablet 1 tab PO DAILY cholecalciferol (vitamin D3) 50 mcg (2,000 unit) capsule 50 mcg PO DAILY All Day Allergy (cetirizine) 10 mg capsule 10 mg PO DAILY mecobalamin (vitamin B12) 500 mcg tablet,chewable 500 mcg PO DAILY biotin 5,000 mcg tablet, sublingual 5,000 mcg sublingual DAILY Proair Digihaler 90 mcg/actuation Aero Powdr Breath Act W/Sensor 2 inh INHALATION Q6H ferrous sulfate [Feosol] 325 mg (65 mg iron) tablet 650 mg PO QODAY zinc 50 mg tablet 50 mg PO DAILY ascorbic acid (vitamin C) [Vitamin C] 500 mg tablet 500 mg PO DAILY calcium citrate-vitamin D3 [Citracal + D Maximum] 315 mg-6.25 mcg (250 unit) tablet 2 tab PO TID levothyroxine 150 mcg tablet 150 mcg PO .M-F Qty: 90 3RF Referrals / Follow Up: Sage Rosa MD [Primary Care Provider] - Grey Flores MD [Med Staff - Active Staff] - (Follow-up 2 weeks from discharge)
--- NOTE | 2023-02-09 08:00 | PN.GI_ITS ---
Subjective Subjective Patient is status post repeat ERCP for recurrent choledocholithiasis after cholecystectomy. She does not have any abdominal pain, nausea and is tolerating a normal diet. Objective Data Objective Data Vital Signs: Vital Signs Temp Pulse Resp BP Pulse Ox O2 Del Method O2 Flow Rate 98.2 F 88 16 123/67 H 98 Room Air 4 02/09/23 14:35 02/09/23 14:35 02/09/23 14:35 02/09/23 14:35 02/09/23 14:35 02/09/23 14:35 02/08/23 17:05 Oxygen Flow Rate (L/min) 4 Oxygen Delivery Method Room Air Weight: 176 lb 2.389 oz Body Mass Index (BMI) 33.3 Intake & Output: Intake and Output for Last 24 Hours 02/07/23 02/08/23 02/09/23 23:59 23:59 23:59 Intake Total 4395.16 / 4395.16 2749.17 / 2749.17 350 / 350 Output Total 1500 / 1500 Balance 4395.16 / 4395.16 1249.17 / 1249.17 350 / 350 Lab / Micro Data 02/09/23 05:55 02/09/23 05:55 Labs: Laboratory Results - last 24 hr 02/09/23 05:55: WBC 5.9, RBC 3.39 L, Hgb 10.1 L, Hct 32.1 L, MCV 94.7, MCH 29.8, MCHC 31.5 L, RDW Std Deviation 45.3 H, RDW Coeff of Miihr 13.0, Plt Count 213, MPV 13.0 H, Immature Gran % (Auto) 0.300, Neut % (Auto) 72.5 H, Lymph % (Auto) 20.7, [place] % (Auto) 6.3, Eos % (Auto) 0.2, Baso % (Auto) 0.0, Absolute Neuts (auto) 4.2, Absolute Lymphs (auto) 1.21, Nucleated RBC % 0, Sodium 142, Potassium 3.8, Chloride 109 H, Carbon Dioxide 28.0, Anion Gap 5, BUN 6 L, Creatinine 0.57, Estim Creat Clear Calc 92.07, Est GFR (MDRD) Af Amer 146, Est GFR (MDRD) Non-Af 121, BUN/Creatinine Ratio 10.6, Glucose 125 H, Calcium 8.4 L Micro: Microbiology 02/05/23 22:30 Urine, Clean Catch Urine Culture - Final Culture exhibits no growth. Radiography Diagnostic Testing: Radiology Impression Endo Retro Cholangiopancreatogram 02/08/23 16:30 IMPRESSION: Fluoroscopically guided ERCP procedure as described. For details please see operative report. Electronically Signed: Irais He MD at 19:20 EST , Physical Exam Const alert and no apparent distress Resp normal respiratory effort, no retractions, no use of accessory muscles and clear to auscultation bilaterally Cardio regular rate, regular rhythm, S1 normal heart sound and S2 normal heart sound GI normal to inspection, nondistended, normoactive bowel sounds Assessment & Plan Assessment/Plan (1) Acute gallstone pancreatitis: PLAN: Plan 1. Acute gallstone pancreatitis: * CT abdomen/pelvis shows pericholecystic fluid, mild enlargement of the pancreatic head and uncinate w/o discrete mass. * ERCP showed choledocholithiasis w complete removal. Biliary sphincterotomy. Temporary stent placed. * Right upper quadrant sonogram shows cholelithiasis. Mild thickening of the GB w/o pericholecystic fluid. Mild dilation of CBD at 8mm. * Lap Carla 02/07. DW Dr. Flores, pt still with choledocholithiasis. * ERCP repeated on 02/08: with choledocholithiasis removal, sphincterotomy. Stent exchange. * On empiric pip/tazo. Chronic conditions: * Thyroid cancer status post thyroidectomy and postop hypothyroidism: Continue levothyroxine. Patient is on multiple vitamin D supplement, ferrous sulfate, zinc and other medication and will hold it until oral is permitted. * Chronic intermittent asthma/seasonal allergy: Patient not in asthma exacerbation. Hold cetirizine. DuoNeb as needed. DVT prophylaxis moderate risk: Lovenox 40 mg subcu daily. Charges/Coding Visit Charges Inpatient E&M: 45810 Subs Hosp L3
[2023-02-09] MEDS: Ensure Plus High Protein 120 ML LIQUID PO (08:45)
[2023-02-09] MEDS: Ascorbic Acid 500 MG Tablet PO (10:46)
[2023-02-09] MEDS: Acetaminophen 325 MG Tablet 650 MG PO (10:52)
--- NOTE | 2023-02-09 12:21 | DS.PCM_ITS ---
Providers Date of Admission: 02/05/23 Primary Care Physician: Dr. Sage Rosa MD Consultations 02/05/23 19:43 Consult: Gastroenterology Routine Consulting Provider: [facility] Reason for Consult: Possible choledocholithiasis. EMERGENT Consult: No Notified: Yes Date Notified: 02/05/23 Time Notified: 19:28 Method of Notification: ED Physician Initiated Consult: General Surgery Routine Consulting Provider: Per Orozco Reason for Consult: Gallstone pancreatitis. EMERGENT Consult: No Notified: Yes Date Notified: 02/05/23 Time Notified: 19:27 Method of Notification: ED Physician Initiated Reason For Visit: GALL STONE PANCRETITIS Diagnosis Discharge Diagnosis (1) Acute gallstone pancreatitis: Status: Acute Code(s): K85.10 - Biliary acute pancreatitis without necrosis or infection Plan Acute gallstone pancreatitis: * CT abdomen/pelvis shows pericholecystic fluid, mild enlargement of the pancreatic head and uncinate w/o discrete mass. * ERCP showed choledocholithiasis w complete removal. Biliary sphincterotomy. Temporary stent placed. * Right upper quadrant sonogram shows cholelithiasis. Mild thickening of the GB w/o pericholecystic fluid. Mild dilation of CBD at 8mm. * Lap Carla 02/07. DW Dr. Flores, pt still with choledocholithiasis. * ERCP repeated on 02/08: with choledocholithiasis removal, sphincterotomy. Stent exchange. * On empiric pip/tazo during hospitalization. DC abx upon discharge. Chronic conditions: * Thyroid cancer status post thyroidectomy and postop hypothyroidism: Continue levothyroxine. Patient is on multiple vitamin D supplement, ferrous sulfate, zinc and other medication and will hold it until oral is permitted. * Chronic intermittent asthma/seasonal allergy: Patient not in asthma exacerbat ion. Hold cetirizine. DuoNeb as needed. DVT prophylaxis moderate risk: Lovenox 40 mg subcu daily. Medications at Discharge Home Medications multivitamin,[id number] (Complete Multivitamin tablet) 1 tab PO DAILY supplement 05/02/18 cholecalciferol (vitamin D3) 50 mcg (2,000 unit) capsule 50 mcg PO DAILY supplement 05/04/20 albuterol sulfate 90 mcg/actuation breath activated powder inhaler,sensor (Proair Digihaler) 2 inh inhalation Q6H asthma 08/14/20 biotin 5,000 mcg sublingual tablet 5,000 mcg sublingual DAILY vitamin 06/13/22 cetirizine 10 mg capsule (All Day Allergy (cetirizine)) 10 mg PO DAILY allergies 06/13/22 mecobalamin (vitamin B12) 500 mcg chewable tablet 500 mcg PO DAILY vitamin 06/13/22 levothyroxine 150 mcg tablet 150 mcg PO .M-F thyroid #90 tabs 08/04/22 ascorbic acid (vitamin C) 500 mg tablet (Vitamin C) 500 mg PO DAILY vitamin 02/05/23 calcium citrate 315 mg calcium-vitamin D3 6.25 mcg (250 unit) tablet (Citracal + Vitamin D Maximum) 2 tab PO TID vitamin 02/05/23 ferrous sulfate 325 mg (65 mg iron) tablet (Feosol) 650 mg PO QODAY iron deficiency 02/05/23 zinc 50 mg tablet 50 mg PO DAILY vitamin 02/05/23 Weight / BMI Weight Weight: 79.9 kg Body Mass Index (BMI) 33.3 ABG / Lab / Microbiology Data 02/09/23 05:55 02/09/23 05:55 Laboratory: Laboratory Results - last 24 hr 02/09/23 05:55: WBC 5.9, RBC 3.39 L, Hgb 10.1 L, Hct 32.1 L, MCV 94.7, MCH 29.8, MCHC 31.5 L, RDW Std Deviation 45.3 H, RDW Coeff of Mihir 13.0, Plt Count 213, MPV 13.0 H, Immature Gran % (Auto) 0.300, Neut % (Auto) 72.5 H, Lymph % (Auto) 20.7, [place] % (Auto) 6.3, Eos % (Auto) 0.2, Baso % (Auto) 0.0, Absolute Neuts (auto) 4.2, Absolute Lymphs (auto) 1.21, Nucleated RBC % 0, Sodium 142, Potassium 3.8, Chloride 109 H, Carbon Dioxide 28.0, Anion Gap 5, BUN 6 L, Creatinine 0.57, Estim Creat Clear Calc 92.07, Est GFR (MDRD) Af Amer 146, Est GFR (MDRD) Non-Af 121, BUN/Creatinine Ratio 10.6, Glucose 125 H, Calcium 8.4 L Microbiology: Microbiology 02/05/23 22:30 Urine, Clean Catch Urine Culture - Final Culture exhibits no growth. Radiography Diagnostic Testing: Radiology Impression Endo Retro Cholangiopancreatogram 02/08/23 16:30 IMPRESSION: Fluoroscopically guided ERCP procedure as described. For details please see operative report. Electronically Signed: Irais He MD at 19:20 EST , D/C Instructions Discharge Diet: Low fat / Low cholesterol Call your doctor if your incision/area has: Continuous Slow Oozing, Sudden Increased Bleeding, Increased Pain/ Swelling, Increased Redness, Foul Smelling Discharge and Swelling at the incision site Call your doctor if you observe: Fever of 101 or Higher Suture Line Care: Avoid Pulling/Pushing and Avoid Pinching/Bending Cleanse incision/area with: Soap & Water Please Follow Up With: Grey Flores MD When: Please call our office at [phone] to schedule a follow-up appointment 2 weeks from discharge Meaningful Use Info Meaningful Use Diagnoses (Choose all that apply): None applicable Discharge Plan Admission Admit Date/Time: 02/05/23 17:14 Primary Reason for Your Visit: cholecystitis Attending Provider: Rell Baldwin Primary Care Provider: Sage Rosa Consulting Providers: Per Orozco; Bert López Instructions Additional Instructions / Restrictions: Recommend Tylenol 650 mg every 6 hours as needed for pain/discomfort. Discharge Orders/Prescriptions Prescriptions: Continued Complete Multivitamin tablet 1 tab PO DAILY cholecalciferol (vitamin D3) 50 mcg (2,000 unit) capsule 50 mcg PO DAILY All Day Allergy (cetirizine) 10 mg capsule 10 mg PO DAILY mecobalamin (vitamin B12) 500 mcg tablet,chewable 500 mcg PO DAILY biotin 5,000 mcg tablet, sublingual 5,000 mcg sublingual DAILY Proair Digihaler 90 mcg/actuation Aero Powdr Breath Act W/Sensor 2 inh INHALATION Q6H ferrous sulfate [Feosol] 325 mg (65 mg iron) tablet 650 mg PO QODAY zinc 50 mg tablet 50 mg PO DAILY ascorbic acid (vitamin C) [Vitamin C] 500 mg tablet 500 mg PO DAILY calcium citrate-vitamin D3 [Citracal + D Maximum] 315 mg-6.25 mcg (250 unit) tablet 2 tab PO TID levothyroxine 150 mcg tablet 150 mcg PO .- Qty: 90 3RF Referrals / Follow Up: Sage Rosa MD [Primary Care Provider] - Grey Flores MD [Med Staff - Active Staff] - (Follow-up 2 weeks from discharge) Disposition Disposition (needs filled in before D/C Order can be placed): Home, Self Care Charges/Coding Visit Charges Inpatient E&M: 33316 Disch Hosp
[2023-02-09 14:35] VITALS: BP 123/67; PULSE 88; RESP 16; TEMP 36.8; O2SAT 98
== END 2023-02-09 15:21 | disposition home or self-care (01) | DRG 417 ==
LOC: ED 14:08 → MS3 17:33
PROVIDERS: Anesthesiology; Internal Medicine Gastroenterology; Physician Assistant; Surgery; Admitting Provider Internal Medicine; Emergency Provider Emergency Medicine; PCP Family Medicine
PROC: (CPT 43260; principal; 2023-02-06 15:40)
PROC: 0FT44ZZ Resection of Gallbladder, Percutaneous Endoscopic Approach (ICD-10-PCS; CPT 47610; principal; 2023-02-07 14:00)
PROC: 0FC98ZZ Extirpation of Matter from Common Bile Duct, Via Natural or Artificial Opening Endoscopic (ICD-10-PCS; CPT 43260; principal; 2023-02-08 15:25)
DX: K80.65 Calculus of gallbladder and bile duct with chronic cholecystitis with obstruction (principal); K85.10 Biliary acute pancreatitis without necrosis or infection; K75.89 Other specified inflammatory liver diseases; E89.0 Postprocedural hypothyroidism; J45.20 Mild intermittent asthma, uncomplicated; J30.2 Other seasonal allergic rhinitis; K66.0 Peritoneal adhesions (postprocedural) (postinfection); Z98.84 Bariatric surgery status; Z90.49 Acquired absence of other specified parts of digestive tract; Z79.51 Long term (current) use of inhaled steroids; Z79.899 Other long term (current) drug therapy; Z85.850 Personal history of malignant neoplasm of thyroid
CPT/HCPCS: 36415; 74177; 74300; 74330; 76000; 76705; 80048; 80053; 81001; 82248; 83690; 83735; 84100; 84443; 84703; 85025; 85610; 87086; 88304; 93005; 94668; 97802; 97803; 99252; 99284; J7030; J7050; J7120; Q9967; A4216; G0463; J2405

== ENCOUNTER → 2023-02-28 | Outpatient (CLI) | payer OTHER, SELFPAY ==
[2023-02-28 12:38] LABS: T4 Free Direct 1.18 ng/dL (0.76-1.46); Thyroid Stim Hormone (TSH) 2.82 uIU/mL (0.358-3.74)
[2023-03-01 18:08] LABS: Anti-Thyroglobulin AB < 1.0 IU/mL (0.0-0.9); Thyroglobulin, Serum Qt. 0.1 ng/mL (1.5-38.5)
== END | disposition home or self-care (01) ==
LOC: BIMLAB 10:04
PROVIDERS: PCP Family Medicine; Referring Provider Internal Medicine Endocrinology, Diabetes & Metabolism; Visit Provider Internal Medicine Endocrinology, Diabetes & Metabolism
DX: C73 Malignant neoplasm of thyroid gland (principal); E89.0 Postprocedural hypothyroidism
CPT/HCPCS: 36415; 84432; 84439; 84443; 86800

== ENCOUNTER 2023-05-10 10:35 | Day surgery (SDC) | payer OTHER, SELFPAY ==
[2023-05-10] VITALS (8 sets, daily range): BP systolic 93–128; BP diastolic 62–83; PULSE 65–79; RESP 16; TEMP 36.6–36.9; O2SAT 93–100; BMI 31.8
[2023-05-10 10:57] LABS: Internal QC Validated? YES +Cl - CLEAR BKGD; Pregnancy, Urine Negative Negative
--- NOTE | 2023-05-10 11:05 | PCM.HP.BLA ---
History and Physical Date of Admission: 05/10/23 Gallstone pancreatitis HPI Narrative: MICHAEL CHOUDHURY, is a 47 F who presents with acute onset abdominal pain. She is status post gastric sleeve approximately 6 months ago. She has no prior history of hepatobiliary or pancreatic disease came to ED with epigastric abdominal pain for about 1 week. She described her pain in epigastric region, spontaneous onset, intermittent, colicky in nature, episodic each episode lasting for about 15 to 20 minutes but pain never goes away. Frequency and duration of pain increased over last 1 week more so over last 2 days. Patient felt cold but denies any fever. She is still any food or drink makes her pain worse. She denies alcohol or smoking history. In ED, she had CT abdomen pelvis which shows trace pericholecystic fluid, mild enlargement of pancreatic head and uncinate process without discrete mass. Lipase enzyme is very high, 3086 along with total bilirubin, transaminases and alkaline phosphatase. CT abdomen pelvis displayed : Trace pericholecystic fluid. Correlate clinically. Mild enlargement of the pancreatic head and uncinate without discrete mass. [facility] Medical History Alcohol use Asthma Non-smoker Postoperative primary hypothyroidism Thyroid cancer Thyroid disease Wears contact lenses Home Medications multivitamin,[id number] (Complete Multivitamin tablet) 1 tab PO DAILY supplement 05/02/18 [History Last Taken Unknown] cholecalciferol (vitamin D3) 50 mcg (2,000 unit) capsule 50 mcg PO DAILY supplement 05/04/20 [History Last Taken Unknown] albuterol sulfate 90 mcg/actuation breath activated powder inhaler,sensor (Proair Digihaler) 2 inh inhalation Q6H asthma 08/14/20 [History Last Taken Unknown] biotin 5,000 mcg sublingual tablet 5,000 mcg sublingual DAILY vitamin 06/13/22 [History Last Taken 02/04/23] cetirizine 10 mg capsule (All Day Allergy (cetirizine)) 10 mg PO DAILY allergies 06/13/22 [History Last Taken Unknown] mecobalamin (vitamin B12) 500 mcg chewable tablet 500 mcg PO DAILY vitamin 06/13/22 [History Last Taken Unknown] levothyroxine 150 mcg tablet 150 mcg PO .M-F thyroid #90 tabs 08/04/22 [Rx Last Taken Unknown] ascorbic acid (vitamin C) 500 mg tablet (Vitamin C) 500 mg PO DAILY vitamin 02/05/23 [History Last Taken Unknown] calcium citrate 315 mg calcium-vitamin D3 6.25 mcg (250 unit) tablet (Citracal + Vitamin D Maximum) 2 tab PO TID vitamin 02/05/23 [History Last Taken Unknown] ferrous sulfate 325 mg (65 mg iron) tablet (Feosol) 650 mg PO QODAY iron deficiency 02/05/23 [History Last Taken Unknown] zinc 50 mg tablet 50 mg PO DAILY vitamin 02/05/23 [History Last Taken Unknown] Allergy/AdvReac Type Severity Reaction Status Date / Time No Known Allergies Allergy Verified 02/06/23 13:15 Surgical History H/O gastric sleeve H/O total thyroidectomy with radical neck dissection History of ankle surgery History of dilation and curettage History of ovarian cystectomy History of tonsillectomy Hx of appendectomy Social History Smoking Status: Never smoker alcohol intake: never substance use type: does not use caffeine: Yes what type of physical activity do you participate in: walking seatbelt use: always do you feel safe at home: Yes 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 [employer] Constitutional Constitutional: Denies anorexia, chills or fatigue Eyes Eyes: Denies blurry vision ENT HEENT: Denies abnormal hearing Cardiovascular Cardiovascular: Denies chest pain Respiratory/Chest Respiratory/Chest: Denies cough or dyspnea Gastrointestinal Gastrointestinal: Reports abdominal pain; Denies nausea or vomiting Genitourinary Genitourinary: Denies change in urinary stream Musculoskeletal Musculoskeletal: Denies abnormal gait Integumentary Integumentary: Reports jaundice Neurologic Neurologic: Denies abnormal gait Psychiatric Psychiatric: Denies anxiety Endocrine Endocrinology: Denies heat intolerance Physical Exam Const alert and no apparent distress Resp normal respiratory effort, no retractions, no use of accessory muscles and clear to auscultation bilaterally Cardio regular rate, regular rhythm, S1 normal heart sound and S2 normal heart sound GI normal to inspection, nondistended, normoactive bowel sounds, soft to palpation and non-distended GI Narrative: RUQ ab Extremity normal to inspection Neuro Sensorium / Orientation: awake and alert Lab / Micro Data 02/06/23 03:35 02/06/23 03:35 Labs: Laboratory Results - last 24 hr 02/05/23 14:50: Phosphorus 3.3, Magnesium 1.9, Direct Bilirubin 2.31 H 02/06/23 03:35: WBC 6.3, RBC 3.98 L, Hgb 11.8 L, Hct 37.3, MCV 93.7, MCH 29.6, MCHC 31.6 L, RDW Std Deviation 45.4 H, RDW Coeff of Mihir 13.1, Plt Count 185, MPV 12.8 H, Immature Gran % (Auto) 0.300, Neut % (Auto) 73.3 H, Lymph % (Auto) 18.7 L, [place] % (Auto) 6.1, Eos % (Auto) 1.4, Baso % (Auto) 0.2, Absolute Neuts (auto) 4.6, Absolute Lymphs (auto) 1.17, Nucleated RBC % 0, PT 13.9, INR 1.1, Sodium 143, Potassium 3.6, Chloride 111 H, Carbon Dioxide 24.0, Anion Gap 8, BUN 13, Creatinine 0.63, Estim Creat Clear Calc 83.30, Est GFR (MDRD) Af Amer 130, Est GFR (MDRD) Non-Af 107, BUN/Creatinine Ratio 20.6 H, Glucose 80, Calcium 8.0 L, Total Bilirubin 2.40 H, AST 75 H, ALT 178 H, Alkaline Phosphatase 339 H, Total Protein 6.2 L, Albumin 2.8 L, Globulin 3.4, Albumin/Globulin Ratio 0.8 L, TSH 9.99 H Imagaing Radiology Impression Abdomen/Pelvis CT 02/05/23 15:17 IMPRESSION: 1. Trace pericholecystic fluid. Correlate clinically. Consider gallbladder ultrasound if clinically warranted. 2. Mild enlargement of the pancreatic head and uncinate without discrete mass. Consider follow-up multiphase CT or MRI of the pancreas. 3. Uterine fibroids. Electronically Signed: Tamika Norris MD at 16:33 EST Reading Location ID and State: [id number] / Tel , Service support , Assessment & Plan Assessment/Plan (1) Acute gallstone pancreatitis: PLAN: Plan This is 47-year-old female being admitted for acute gallstone pancreatitis. Acute gallstone pancreatitis: The patient is admitted MedSurg floor. Patient has normal WBC count, hemoglobin and hematocrit. Neutrophils 78%. Liver chemistry shows elevated transaminases ALT more than AST, alkaline phosphatase 372 and total bilirubin 3.2. Direct bilirubin ordered. Lipase is about 3000. CT abdomen/pelvis as described in HPI. She underwent ERCP tomorrow. She had multiple stones removed from her common bile duct and a temporary stent placed. The next day she underwent cholecystectomy. She is doing very well from a GI standpoint. She comes in today for removal and possible exchange of biliary stent that was placed secondary to mild biliary stricture likely secondary to chronic cholecystitis. She was explained alternatives, risk, benefits including not withstanding bleeding, infection, sepsis, perforation, need for emergent surgery and . She will have an ASA of 3.
[2023-05-10] MEDS: Lactated Ringers 1,000 ML 15 ML IV (11:10)
--- NOTE | 2023-05-10 11:54 | RAD_ITS ---
STUDY: ERCP. REASON FOR EXAM: Female, 47 years old. PAIN FLUOROSCOPY TIME (if supplied): ( 33 seconds ) minutes/seconds. 7.02 mGy. 9 images were submitted. TECHNIQUE: Fluoroscopic services provided for ERCP. COMPARISON: None. FINDINGS: There is cannulation of the common bile duct with contrast injection. There is evidence of intraluminal filling defects. There is been clearing of the choledocholithiasis. RAD/ERCP Biliary/Pancreas IMPRESSION: Fluoroscopic guidance for ERCP. Removal of the choledocholithiasis. Electronically Signed: Elie Rodriguez MD at 12:46 EDT ,
--- NOTE | 2023-05-10 12:26 | OP.ERCP_ITS ---
Patient Name: Laquita Burdick Procedure Date: 05/10/2023 11:49 AM Date of : 1975 Age: 47 Procedure: ERCP Indications: Biliary stent removal Providers: Jose Irby DO Referring MD: Jose Irby DO Medicines: Monitored Anesthesia Care Patient Profile: This is a 47 year old female. Refer to note in patient chart for documentation of history and physical. Patient has symptoms. Her most recent ERCP for stent and ERCP for stone removal. She is status post laparoscopic cholecystectomy. Complications: No immediate complications. Procedure: Pre-Anesthesia Assessment: - Prior to the procedure, a History and Physical was performed, and patient medications and allergies were reviewed. The patient is competent. The risks and benefits of the procedure and the sedation options and risks were discussed with the patient. All questions were answered and informed consent was obtained. Patient identification and proposed procedure were verified by the physician in the pre-procedure area. Mental Status Examination: alert and oriented. Airway Examination: normal oropharyngeal airway and neck mobility. Respiratory Examination: clear to auscultation. CV Examination: normal. ASA Grade Assessment: II - A patient with mild systemic disease. After reviewing the risks and benefits, the patient was deemed in satisfactory condition to undergo the procedure. The anesthesia plan was to use monitored anesthesia care (MAC). Immediately prior to administration of medications, the patient was re-assessed for adequacy to receive sedatives. The heart rate, respiratory rate, oxygen saturations, blood pressure, adequacy of pulmonary ventilation, and response to care were monitored throughout the procedure. The physical status of the patient was re-assessed after the procedure. After obtaining informed consent, the scope was passed under direct vision. Throughout the procedure, the patient's blood pressure, pulse, and oxygen saturations were monitored continuously. The Duodenoscope was introduced through the mouth, and advanced to the duodenum and used to inject contrast into the bile duct and ventral pancreatic duct. The ERCP was accomplished without difficulty. The patient tolerated the procedure well. Scope In: 12:10:21 PM Scope Out: 12:17:53 PM Total Procedure Duration Time 0 hours 7 minutes 32 seconds Findings: The glass artist film was normal. The esophagus was successfully intubated under direct vision. The scope was advanced to a normal major papilla in the descending duodenum without detailed examination of the pharynx, larynx and associated structures, and upper GI tract. The upper GI tract was grossly normal. The bile duct was deeply cannulated with the short-nosed traction sphincterotome. Contrast was injected. I personally interpreted the bile duct and pancreatic duct images. There was brisk flow of contrast through the ducts. Image quality was excellent. Contrast extended to the entire biliary tree. The upper third of the main bile duct was partially obstructed by what appeared to be a stone. Opacification of the entire opacified area was successful. The maximum diameter of the ducts was 10 mm. The upper third of the main bile duct contained one stone, which was 6 mm in diameter. The entire biliary tree except for the cystic duct and gallbladder and main bile duct were diffusely dilated, with a stone causing an obstruction. The largest diameter was 10 mm. A cholecystectomy had been performed. A straight Roadrunner wire was passed into the biliary tree. A 5 mm biliary sphincterotomy was made with a braided traction (standard) sphincterotome using ERBE electrocautery. There was no post-sphincterotomy bleeding. The biliary tree was swept with a 12 mm balloon starting at the bifurcation. All stones were removed. One stent was removed from the biliary tree using a snare. Impression: - The entire main bile duct was dilated, with a stone causing an obstruction. - The patient has had a cholecystectomy. - Choledocholithiasis with a partial obstruction was found. Complete removal was accomplished by biliary sphincterotomy and balloon extraction. - A biliary sphincterotomy was performed. - The biliary tree was swept. - One stent was removed from the biliary tree. Procedure Code(s): --- Professional --- 89217, Endoscopic retrograde cholangiopancreatography (ERCP); with removal of foreign body(s) or stent(s) from biliary/pancreatic duct(s) 47221, Endoscopic retrograde cholangiopancreatography (ERCP); with removal of calculi/debris from biliary/pancreatic duct(s) 46886, Endoscopic retrograde cholangiopancreatography (ERCP); with sphincterotomy/papillotomy 50737, 26, Combined endoscopic catheterization of the biliary and pancreatic ductal systems, radiological supervision and interpretation CPT copyright 2021 [employer]. All rights reserved. The codes documented in this report are preliminary and upon ed tech review may be revised to meet current compliance requirements. Jose Irby DO 05/10/2023 12:25:36 PM This report has been signed electronically. Number of Addenda: 0 Note Initiated On: 05/10/2023 11:49 AM
--- NOTE | 2023-05-10 12:26 | OP.CCLET_ITS ---
05/10/2023 Sage Rosa [address] [place] [address] Re : ERCP procedure for Laquita Burdick Dear Dr. Rosa This procedure was performed on Wednesday, May 10, 2023. My impressions and recommendations are as follows: Impressions : - The entire main bile duct was dilated, with a stone causing an obstruction. - The patient has had a cholecystectomy. - Choledocholithiasis with a partial obstruction was found. Complete removal was accomplished by biliary sphincterotomy and balloon extraction. - A biliary sphincterotomy was performed. - The biliary tree was swept. - One stent was removed from the biliary tree. Recommendations : My findings are described in the full procedure note, which is enclosed. If I can be of further assistance, please feel free to contact me at . Sincerely, Jose Irby, 05/10/2023 12:25:36 PM This report has been signed electronically.
== END 2023-05-10 13:56 | disposition home or self-care (01) ==
LOC: EN 10:35 → AC 10:39
PROVIDERS: Anesthesiology; PCP Family Medicine; Referring Provider Internal Medicine Gastroenterology; Visit Provider Internal Medicine Gastroenterology
PROC: (CPT 43260; principal; 2023-05-10 11:25)
DX: K80.51 Calculus of bile duct without cholangitis or cholecystitis with obstruction (principal); E89.0 Postprocedural hypothyroidism; Z79.899 Other long term (current) drug therapy
CPT/HCPCS: 43264; 43275; 74330; 76000; 81025; J7120; J2405

== ENCOUNTER → 2023-08-02 | Outpatient (CLI) | payer OTHER, SELFPAY ==
--- NOTE | 2023-08-02 08:25 | BI_ITS ---
MAMMOGRAPHY - BILATERAL SCREENING REASON FOR EXAM: Female, 48 years old. Routine annual screening examination. PERTINENT HISTORY: Aunts with breast cancer. TECHNIQUE: Digital bilateral breast stephanie (3D mammographic acquisition) in the CC and MLO projections. 2-D mediolateral oblique (MLO) and craniocaudad (CC) views of both breasts were obtained. CAD: Full Field Digital Mammography with Computer Added Detection was performed. COMPARISON: Comparison is made with prior study dated June 06, 2022 and April 14, 2021. FINDINGS: Breast Composition: The breasts are heterogeneously dense, which may obscure small masses. There are no dominant masses or suspicious calcifications. Stable asymmetry of breast tissue or more breast tissue is seen in the upper the lateral aspect of the left breast as compared to the right side. No other significant abnormalities are identified. There has been no significant change since the prior study. BI/SCRN MAMM (CAD)W/STEPHANIE BILAT IMPRESSION: Stable bilateral screening mammogram. Yearly follow-up mammogram recommended. (A) ASSESSMENT CATEGORY: BIRADS Category 2: Benign. A letter regarding these results will be sent to the patient by the facility within 30 days. Approximately 10% of breast cancers are not detected by mammography. A normal mammogram should not delay biopsy of a clinically suspicious abnormality. [id number] Electronically Signed: Elie Rodriguez MD at 9:23 EDT ,
== END | disposition home or self-care (01) ==
LOC: OPBI 08:24
PROVIDERS: PCP Family Medicine; Referring Provider Obstetrics & Gynecology; Visit Provider Obstetrics & Gynecology
DX: Z12.31 Encounter for screening mammogram for malignant neoplasm of breast (principal)
CPT/HCPCS: 77063; 77067

== ENCOUNTER → 2023-09-29 | Outpatient (CLI) | payer OTHER, SELFPAY ==
[2023-09-29 12:55] LABS: T4 Free Direct 1.01 ng/dL (0.76-1.46); Thyroid Stim Hormone (TSH) 9.69 uIU/mL (0.358-3.74)
== END | disposition home or self-care (01) ==
LOC: BIMLAB 11:19
PROVIDERS: PCP Family Medicine; Referring Provider Internal Medicine Endocrinology, Diabetes & Metabolism; Visit Provider Internal Medicine Endocrinology, Diabetes & Metabolism
DX: C73 Malignant neoplasm of thyroid gland (principal); E89.0 Postprocedural hypothyroidism
CPT/HCPCS: 36415; 84439; 84443

== ENCOUNTER → 2023-11-01 | Outpatient (CLI) | payer OTHER, SELFPAY ==
--- NOTE | 2023-11-01 13:46 | RAD_ITS ---
STUDY: X-RAY - PELVIS AND BILATERAL HIPS REASON FOR EXAM: Female, 48 years old. Pain. TECHNIQUE: AP view of the pelvis.? 2 views of the right hip, and 2 views of the left hip were obtained. COMPARISON: None. FINDINGS: There is a non-specific bowel gas pattern. Phleboliths. Normal bilateral iliac wings, sacroiliac joints and visualized sacrum. Normal bilateral superior and inferior pubic rami. Normal pubic symphysis. Normal bilateral ischial tuberosities. Mild arthrosis of both hips. RAD/Hips B/L min 2 views w/ Pelvis IMPRESSION: Mild arthrosis of both hips. Electronically Signed: Ancelmo Quan MD at 15:26 EDT ,
== END | disposition home or self-care (01) ==
LOC: MTRAD 13:46
PROVIDERS: PCP Family Medicine; Referring Provider Family Medicine; Visit Provider Family Medicine
DX: M16.0 Bilateral primary osteoarthritis of hip (principal)
CPT/HCPCS: 73521

== ENCOUNTER → 2023-11-02 | Outpatient (CLI) | payer OTHER, SELFPAY ==
[2023-11-02 10:04] LABS: Absolute Lymphocyte Count 1.54 X10^3/uL (0.83-4.51); Absolute Neutrophil Count 2.9 X10^3/uL (2.0-7.7); Basophil# 0.01 X10^3/uL; Basophil% 0.2 % (0-1); Eosinophils% 2.1 % (0-5); Hematocrit 39.3 % (37-47); Hemoglobin 12.7 g/dL (12.0-15.0); Lymphocyte # 1.54 X10^3/ul (0.83-4.51); Lymphocyte % 31.7 % (19-41); Mean Corp Hgb Conc 32.3 g/dL (32-36); Mean Corpuscular Hgb 30.2 pg (27.0-32.0); Mean Corpuscular Volume 93.6 fL (81-99); Mean Platelet Vol. 11.6 fl (6.2-12.0); Monocyte% 6.2 % (0-10); NRBC Flagged by Analyzer 0 % (0-5); Neutrophil # 2.89 X10^3/uL (2.7-7.7); Neutrophil % 59.4 % (47-70); Platelet Count 219 K/mm3 (150-450); RBC Distribution Width CV 12.5 % (11.6-14.6); RBC Distribution Width SD 42.9 fl (35.1-43.9); White Blood Count 4.9 K/mm3 (4.4-11.0)
[2023-11-02 10:39] LABS: Vitamin D,25 Hydroxy 90.9 ng/mL
[2023-11-02 11:10] LABS: ALB/GLOB Ratio 1.2 RATIO (0.9-2.4); AST(SGOT) 13 U/L (15-37); Alanine Aminotransfer ALT/SGPT 21 U/L (13-56); Albumin, Serum 3.6 g/dL (3.2-5.0); Alkaline Phosphatase 44 U/L (45-117); Anion Gap 8 (5-15); BUN 16 mg/dL (7-18); BUN/Creat Ratio 18.9 RATIO (10-20); Calcium,Total 9.2 mg/dL (8.5-10.1); Chloride 106 mmol/L (98-107); Cholesterol 185 mg/dL (200); Creatinine, Serum 0.85 mg/dL (0.55-1.02); EST Glomerular Filtration Rate 76 mL/min (>60); Est Glom Filt Rate - Afr Amer 92 mL/min (>60); Ferritin 14 ng/mL (8-252); Globulin 3.1 g/dL (2.2-4.2); Glucose 96 mg/dL (74-106); High Density Lipoprotein 70 mg/dL; Iron 101 ug/dL (50-170); Iron Binding Capacity,Total 383 ug/dL (250-450); Magnesium 2.3 mg/dL (1.6-2.6); Phosphorus 3.3 mg/dL (2.5-4.9); Potassium 4.2 mmol/L (3.5-5.1); Protein, Total 6.7 g/dL (6.4-8.2); Sodium Level 140 mmol/L (136-145); Triglycerides 100 mg/dL; Very Low Density Lipoprotein 20 mg/dL (5-40)
[2023-11-07 00:07] LABS: Zinc, Plasma or Serum 80 ug/dL (44-115)
== END | disposition home or self-care (01) ==
PROVIDERS: PCP Family Medicine; Referring Provider Family Medicine; Visit Provider Family Medicine
DX: E55.9 Vitamin D deficiency, unspecified (principal); E66.9 Obesity, unspecified; E61.1 Iron deficiency; Z90.3 Acquired absence of stomach [part of]
CPT/HCPCS: 36415; 80053; 80061; 82306; 82728; 83540; 83550; 83735; 84100; 84630; 85025

== ENCOUNTER → 2023-11-23 | Outpatient (CLI) | payer OTHER, SELFPAY ==
[2023-11-23 18:34] LABS: T4 Free Direct 1.08 ng/dL (0.76-1.46); Thyroid Stim Hormone (TSH) 0.865 uIU/mL (0.358-3.740)
== END | disposition home or self-care (01) ==
PROVIDERS: PCP Family Medicine; Referring Provider Internal Medicine Endocrinology, Diabetes & Metabolism; Visit Provider Internal Medicine Endocrinology, Diabetes & Metabolism
DX: E89.0 Postprocedural hypothyroidism (principal)
CPT/HCPCS: 36415; 84439; 84443

== ENCOUNTER → 2024-02-20 | Outpatient (CLI) | payer OTHER, SELFPAY ==
[2024-02-20 10:55] LABS: T4 Free Direct 1.17 ng/dL (0.76-1.46)
[2024-02-22 15:07] LABS: Anti-Thyroglobulin AB < 1.0 IU/mL (0.0-0.9); Thyroglobulin, Serum Qt. 0.1 ng/mL (1.5-38.5)
== END | disposition home or self-care (01) ==
LOC: PAVLAB 09:27
PROVIDERS: PCP Family Medicine; Referring Provider Internal Medicine Endocrinology, Diabetes & Metabolism; Visit Provider Internal Medicine Endocrinology, Diabetes & Metabolism
DX: C73 Malignant neoplasm of thyroid gland (principal); E89.0 Postprocedural hypothyroidism
CPT/HCPCS: 36415; 84432; 84439; 84443; 86800

== ENCOUNTER → 2024-05-07 | Outpatient (CLI) | payer OTHER, SELFPAY ==
[2024-05-07 18:20] LABS: Absolute Neutrophil Count 3.1 X10^3/uL (2.0-7.7); Basophil# 0.02 X10^3/uL; Basophil% 0.4 % (0-1); Eosinophil# 0.09 X10^3/uL; Eosinophils% 1.6 % (0-5); Hematocrit 35.5 % (37-47); Hemoglobin 11.8 g/dL (12.0-15.0); Lymphocyte % 34.4 % (19-41); Mean Corp Hgb Conc 33.2 g/dL (32-36); Mean Corpuscular Hgb 30.6 pg (27.0-32.0); Mean Platelet Vol. 12.4 fl (6.2-12.0); Monocyte# 0.36 X10^3/uL; Monocyte% 6.5 % (0-10); NRBC Flagged by Analyzer 0 % (0-5); Neutrophil # 3.14 X10^3/uL (2.7-7.7); Neutrophil % 56.7 % (47-70); Platelet Count 206 K/mm3 (150-450); RBC Distribution Width CV 12.7 % (11.6-14.6); RBC Distribution Width SD 42.1 fl (35.1-43.9); Red Blood Count 3.86 M/mm3 (4.2-5.4); White Blood Count 5.5 K/mm3 (4.4-11.0)
[2024-05-07 19:18] LABS: Iron 38 ug/dL (50-170); Iron Binding Capacity,Total 304 ug/dL (250-450); Iron Binding Capacity,Unsat 266 ug/dL (228-428)
[2024-05-07 19:47] LABS: Ferritin 21 ng/mL (22-378)
== END | disposition home or self-care (01) ==
LOC: MFPLAB 14:34
PROVIDERS: PCP Family Medicine; Referring Provider Family Medicine; Visit Provider Family Medicine
DX: E61.1 Iron deficiency (principal); E55.9 Vitamin D deficiency, unspecified
CPT/HCPCS: 36415; 82306; 82728; 83540; 83550; 85025

== ENCOUNTER → 2024-06-25 | Outpatient (CLI) | payer OTHER, SELFPAY ==
--- NOTE | 2024-06-25 16:28 | US_ITS ---
PROCEDURE: PELVIC W/ TRANSVAGINAL, 06/25/2024 REASON FOR EXAM: ENLARGED UTERUS TECHNIQUE: Grayscale and color doppler transabdominal and transvaginal pelvic ultrasound was performed. COMPARISON: None FINDINGS: Uterus: 12.6 x 7.5 x 7.5 cm, Anteverted. Multiple (3 visualized) presumed fibroids, largest posteriorly measuring 3.3 x 3.5 x 3.6 cm appears mostly intramural although it is difficult to exclude a small submucosal component. Borderline minimally heterogeneous background echotexture. Endometrium: 15 mm, echogenic secretory appearance. Cervix: Nabothian cysts. Right ovary: 4.4 x 3.8 x 3.3 cm. Simple appearing unilocular likely dominant follicle/physiologic cyst measures 2.2 x 2.9 x 2.2 cm, O-RADS 1, no follow-up.. Left ovary: Only visualized by limited transabdominal approach. 6.1 x 3.4 x 3.0 cm. Simple appearing unilocular cyst measures 2.5 x 3.7 x 2.1 cm, O-RADS 2, no follow-up in a premenopausal patient. Free fluid: None visualized. Other: Estimated bladder volume 970 mL.. US/Pelvic w/ Transvaginal IMPRESSION: 1. Small presumed uterine fibroids up to 3.6 cm. 2. Borderline minimally heterogeneous background uterine echotexture could sugg est adenomyosis. 3. Additional description as above. Reading Location: [id number]
== END | disposition home or self-care (01) ==
LOC: US 16:15
PROVIDERS: PCP Family Medicine; Referring Provider Obstetrics & Gynecology; Visit Provider Obstetrics & Gynecology
DX: N85.2 Hypertrophy of uterus (principal)
CPT/HCPCS: 76830; 76856

== ENCOUNTER → 2024-08-05 | Outpatient (CLI) | payer OTHER, SELFPAY ==
--- NOTE | 2024-08-05 16:15 | BI_ITS ---
EXAM: SCRN MAMM (CAD)W/STEPHANIE BILAT DATE: 08/05/2024 CLINICAL HISTORY: F, Age 49 y/o , SCREENING MAMMOGRAM 2 maternal aunts with breast cancer. TECHNIQUE: Bilateral screening digital breast tomosynthesis with 2D and 3D images. Computer aided detection. COMPARISON: Prior exam(s) dated August 02, 2023.. FINDINGS: TISSUE DENSITY: The breast tissue is heterogeneously dense, which may obscure small masses. Bilateral Breast Mammographic Findings: No significant masses, calcifications or other abnormalities are identified. No suspicious masses, areas of developing architectural distortion, or suspicious calcifications. There has been no significant interval change. BI/SCRN MAMM (CAD)W/STEPHANIE BILAT IMPRESSION: Stable examination. OVERALL FINAL ASSESSMENT BI-RADS 1: NEGATIVE. RECOMMEND ANNUAL MAMMOGRAPHIC SCREENING. RECOMMENDATION: Routine annual follow-up in 1 Year A letter with findings and recommendations will be mailed to the patient. Reading Location: [place] [id number]
== END | disposition home or self-care (01) ==
LOC: OPBI 15:56
PROVIDERS: PCP Family Medicine; Referring Provider Obstetrics & Gynecology; Visit Provider Obstetrics & Gynecology
DX: Z12.31 Encounter for screening mammogram for malignant neoplasm of breast (principal)
CPT/HCPCS: 77063; 77067

== ENCOUNTER → 2024-10-09 | Outpatient (CLI) | payer OTHER, SELFPAY ==
--- NOTE | 2024-10-09 16:42 | CT_ITS ---
PROCEDURE: CT BRAIN/HEAD W/WO CONTRAST 10/09/2024 REASON FOR EXAM: NEW ONSET VERTIGO AM WITH HYPOTHYROIDISM TECHNIQUE: CT BRAIN/HEAD W/WO CONTRAST Coronal and Sagittal reconstruction series were provided. CONTRAST: Isovue 370 VOLUME: 44 mL One or more dose reduction techniques were used (e.g., Automated exposure control, adjustment of the mA and/or kV according to patient size, use of iterative reconstruction technique). RADIATION DOSE SUMMARY: DLP: 1547.23 mGycm COMPARISON: None. FINDINGS: The ventricular and sulcal size and configuration are within normal limits. No acute intracranial hemorrhage, extra-axial collection, or evidence of acute infarct. No evidence for intracranial mass lesion or pathologic enhancement. Major vascular structures appear grossly patent on this nondedicated exam. Unremarkable orbits. Intact skull base and calvarium. Well-aerated paranasal sinuses and mastoid air cells. CT/Brain/Head W/WO Contrast IMPRESSION: Unremarkable head CT. Reading Location: [id number]
== END | disposition home or self-care (01) ==
LOC: CT 16:41
PROVIDERS: PCP Family Medicine; Referring Provider Family Medicine; Visit Provider Family Medicine
DX: R42 Dizziness and giddiness (principal)
CPT/HCPCS: 70470; Q9967

== ENCOUNTER → 2024-11-06 | Outpatient (CLI) | payer OTHER, SELFPAY ==
[2024-11-06 18:35] LABS: Cholesterol 180 mg/dL (<=200); Low Density Lipoprotein Calc. 87 mg/dL; Triglycerides 98 mg/dL; Very Low Density Lipoprotein 20 mg/dL (5-40); cholesterol:hdl ratio screen 2.47
== END | disposition home or self-care (01) ==
LOC: MTLAB 16:22
PROVIDERS: PCP Family Medicine; Referring Provider Family Medicine; Visit Provider Family Medicine
DX: E66.9 Obesity, unspecified (principal)
CPT/HCPCS: 36415; 80061

== ENCOUNTER → 2024-11-13 | Outpatient (CLI) | payer OTHER, SELFPAY ==
[2024-11-13 18:49] LABS: Cholesterol 177 mg/dL (<=200); Ferritin 31 ng/mL (22-378); Low Density Lipoprotein Calc. 84 mg/dL; Triglycerides 113 mg/dL; Very Low Density Lipoprotein 23 mg/dL (5-40); Vitamin D,25 Hydroxy 81.5 ng/mL (30-100); cholesterol:hdl ratio screen 2.52
--- OUTSIDE RECORDS SUMMARY | 2024-11-13 19:01 | XMS RPT_ITS | CCD ---
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 Chris Rosa Primary Care Provider Dr. Chris Rosa Referring Provider Dr. Vicente Adorno Attending Provider Dr. Kenzie Bonilla Attending Provider [phone] Dr. Crhis Rosa Primary Care Provider Dr. Chris Rosa Referring Provider Chris Rosa Primary Care Unavailable Cayla Villavicencio Attending Unavailable PROVIDER, UNKNOWN Referring Unavailable PROVIDER, UNKNOWN Referring Unavailable JARROD COLLAZO Attending Unavailable Chris Rosa Primary Care Unavailable Chris Rosa MD Primary Care Provider Dr. Chris Rosa Primary Care Provider Dr. Chris Rosa Referring Provider Dr. Vicente Adorno Attending Provider Chris Rosa MD Primary Care Provider Isac HILL, Mary Parks Unavailable Unavailab Jarrod Black MD Unavailable Dr. Chris Rosa Primary Care Provider Dr. Chris Rosa Referring Provider Dr. Vicente Adorno Attending Provider Dr. Chris Rosa Primary Care Provider Dr. Chris Rosa Referring Provider Dr. Kenzie Bonilla Attending Provider Chris Rosa MD Primary Care Provider Isac HILL, Mary Parks Unavailable Unavailab jair Collazo MD, Jarrod Weaver Unavailable Dr. Chris Rosa Primary Care Provider Dr. Chris Rosa Referring Provider Dr. Marylu Hoffmann Attending Provider Dr. Chris Rosa Primary Care Provider Dr. Rell Seymour Emergency Provider Dr. Bert López Admit Provider [phone]([facility])[phone] Bert López Other Provider Dr. Per Orozco Attending Provider Dr. Rell Baldwin Referring Provider 1([facility])[phone] Per Orozco Other Provider 1([facility])[phone] Dr. Rell Baldwin Other Provider Dr. Jose Irby Attending Provider Dr. Rell Baldwin Attending Provider 1([facility])[phone] Carlos Arias Attending Provider Dr. Bert López Referring Provider Dr. Grey Flores Attending Provider WARREN Ruiz Attending Provider Dr. Chris Rosa Referring Provider Dr. Vicente Adorno Attending Provider ROBERT Escamilla Attending Provider Dr. Jose Irby Referring Provider Dr. Jose Irby Other Provider Chris Rosa MD Primary Care Provider CHRIS ROSA [facility] Unavailable EKATERINA WHARTON Attending Unavailable BRIDLE, EKATERINA Referring Unavailable BRIDLE, EKATERINA Attending Unavailable SCHINNER, CHRIS Primary Care Unavailable SCHINNER, CHRIS Primary Care Unavailable BRIDLE, EKATERINA Attending Unavailable BRIDLE, EKATERINA Referring Unavailable SCHINNER, CHRIS Primary Care Unavailable MCAVINEW, KYLIE Attending Unavailable SCHINNER, CHRIS Referring Unavailable SCHINNER, CHRIS Primary Care Unavailable ZAY, JARROD Attending Unavailable SCHINNER, CHRIS Primary Care Unavailable ZAY, JARROD Attending Unavailable SCHINNER, CHRIS Primary Care Unavailable MCAVINEW, KYLIE Attending Unavailable SCHINNER, CHRIS Primary Care Unavailable BRIDLE, EKATERINA Attending Unavailable ELIZABETH, ROBERT P Attending Unavailable ELIZABETH, ROBERT P Referring Unavailable SCHINNER, CHRIS E Primary Care Unavailable ELIZABETH, ROBERT P Attending Unavailable SCHINNER, CHRIS E Referring Unavailable SCHINNER, CHRIS E Primary Care Unavailable Moe, Dr. Chris Rendon Primary Care Provider [phone] Dr. Chris Rosa Referring Provider Dr. Marylu Hoffmann Attending Provider [phone] Rell Seymour Emergency Provider Dr. Bert López Admit Provider Dr. Bert López Other Provider Dr. Per Orozco Attending Provider Moe BUTTERFIELD, Dr. Chris Rendon Primary Care Provider Dr. Vicente Adorno MD Attending Provider Dr. Vicente Adorno MD Referring Provider Dr. Chris Rosa MD Referring Provider Dr. Chris Rosa MD Attending Provider [phone] Dr. Chris Rosa MD Primary Care Provider Moe BUTTERFIELD, Dr. Chris Rendon Referring Provider Irene BUTTERFIELD, Dr. Espino Attending Provider Dr. Kenzie Bonilla MD Referring Provider [phone] Moe BUTTERFIELD, Dr. Chris Rendon Primary Care Provider Moe BUTTERFIELD, Dr. Chris Rendon Referring Provider Olivier BUTTERFIELD, Dr. Zacarias Attending Provider Dr. Rell Aguayo MD Referring Provider [phone] Schinner, Chris E Referring Unavailable Schinner, Chris E Primary Care Unavailable Vicente Adorno Attending Unavailable Kenzie Bonilla Attending Unavailable Schinner, Chris E Primary Care Unavailable Schinner, Chris E Referring Unavailable Kenzie Bonilla Attending Unavailable Kenzie Bonilla Referring Unavailable Schinner, Chris E Primary Care Unavailable Schinner, Chris E Primary Care Unavailable Schinner, Chris E Attending Unavailable Schinner, Chris E Referring Unavailable Schinner, Chris E Primary Care Unavailable Rell Aguayo Attending Unavailable Rell Aguayo Referring Unavailable Vicente Adorno Attending Unavailable Kyree, Vicente Referring Unavailable Schinner, Chris E Primary Care Unavailable Schinner, Chris E Primary Care Unavailable Vicente Adorno Attending Unavailable Kyree, Vicente Referring Unavailable Schinner, Chris E Primary Care Unavailable Schinner, Chris E Attending Unavailable Schinner, Chris E Referring Unavailable Kenzie Bonilla Attending Unavailable JoséanthonyKenzie Referring Unavailable Schinner, Chris E Primary Care Unavailable Allergies Allergy Classification Reported Allergen(s) Allergy Type Date of Onset Reaction(s) Facility (3 sources) SEASONAL ALLERGIES [Other] Propensity to adverse reactions [address] [place] [address] Work Phone: (1 source) OTHER; Translations: [OTHER] Propensity to adverse reactions (disorder) [address] [place] [address] Repository Medications Current Medications Medication Drug Class(es) Dates Sig (Normalized) Sig (Original) ascorbic acid 500 mg oral tablet (9 sources) Vitamin C Start: 02-05-2023 take 1 tablet by mouth once daily Ascorbic Acid (Vitamin C) (Vitamin C) 500 mg tablet Active 500 mg PO DAILY February 05, 2023 1:00am vitamin take 500 mg by mouth once daily Ascorbic Acid 500 mg chew Take 500 mg by mouth once daily. Active calcium citrate 1500 mg / cholecalciferol 250 unt oral tablet (6 sources) Vitamin D Start: 02-05-2023 Calcium Citrate-Vitamin D3 (Citracal + D Maximum) 315 mg-6.25 mcg (250 unit) tablet Active 2 {tbl} PO THREE TIMES A DAY February 05, 2023 1:00am vitamin Calcium Citrate / Vitamin D (10 sources) Start: 08-30-2022 take 500 mg by mouth three times daily Calcium Citrate-Vitamin D (CALCIUM CITRATE +D PO) Take 500 mg by mouth 3 times daily. 0 08/30/2022 Active cetirizine hydrochloride 10 mg oral capsule (12 sources) Histamine-1 Receptor Antagonist Start: 06-13-2022 take 1 capsule by mouth once daily Cetirizine (All Day Allergy (Cetirizine)) 10 mg capsule Active 10 mg PO DAILY June 13, 2022 12:00am allergies cholecalciferol 0.05 mg oral capsule (20 sources) Vitamin D Start: 05-04-2020 take 1 capsule by mouth once daily Cholecalciferol (Vitamin D3) 50 mcg (2,000 unit) capsule Active 50 ug PO DAILY May 04, 2020 12:00am supplement Start: 05-02-2018 End: 05-02-2019 take 1 capsule by mouth once daily Cholecalciferol (Vitamin D3) 1,000 unit capsule Discontinued 1000 U PO DAILY May 02, 2018 12:00am May 02, 2019 10:57am take 1 tablet by edmund th in the morning cholecalciferol (D3-5) 5,000 Units tablet Take 1 tablet by mouth in the morning. 0 Active take 1 tablet by edmund th once daily Cholecalciferol (VITAMIN D3) 125 MCG (5000 UT) TABS Take 1 tablet by mouth daily 0 Active cyanocobalamin, vitamin B-12 , (VITAMIN B-12 ORAL) (3 sources) cyanocobalamin, vitamin B-12, (VITAMIN B-12 ORAL) Take by mouth. Active cyanocobalamin, vitamin B-12, (VITAMIN B-12 ORAL) Take by mouth. 0 Active DULoxetine 60 mg delayed release oral capsule (20 sources) Serotonin and Norepinephrine Reuptake Inhibitor Start: 04-24-2023 DULoxetine (CYMBALTA) 60 mg capsule 04/24/2023 Active Start: 09-30-2021 End: 02-05-2023 take 1 capsule by mouth once daily Duloxetine (Cymbalta) 60 mg capsule,delayed release(DR/EC) Discontinued 60 mg PO DAILY March 03, 2022 1:00am February 05, 2023 7:21pm ferrous sulfate (20 sources) Start: 02-05-2023 take 1 tablet by edmund th every other day Ferrous Sulfate (Feosol) 325 mg (65 mg iron) tablet Active 650 mg PO EVERY OTHER DAY February 05, 2023 1:00am iron deficiency Start: 02-05-2023 take 1 tablet by edmund th every other day Ferrous Sulfate (Feosol) 325 mg (65 mg iron) tablet Active 650 mg PO EVERY OTHER DAY February 05, 2023 1:00am Start: 02-05-2023 take 1 tablet by edmund th every other day Ferrous Sulfate (Feosol) 325 mg (65 mg iron) tablet Active 650 MG PO EVERY OTHER DAY February 05, 2023 1:00am Start: 02-05-2023 take 1 tablet by edmund th every other day Ferrous Sulfate (Feosol) 325 mg (65 mg iron) tablet Active 650 MG PO EVERY OTHER DAY February 05, 2023 12:00am ferrous sulfate 325 mg (65 mg iron) tablet Take 325 mg by mouth. Active take 1 tablet by edmund once daily at breakfast ferrous sulfate 325 (65 Fe) MG tablet Take 325 mg by mouth daily (with breakfast). 0 Active mecobalamin (9 sources) Start: 06-13-2022 take 1 tablet by mouth once daily Mecobalamin (Vitamin B12) 500 mcg tablet,chewable Active 500 ug PO DAILY June 13, 2022 12:00am vitamin Start: 06-13-2022 take 1 tablet by edmund th once daily Mecobalamin (Vitamin B12) 500 mcg tablet,chewable Active 500 ug PO DAILY June 13, 2022 12:00am Start: 06-13-2022 take 500 ug by mouth once daily Mecobalamin (Vitamin B12) Active 500 MCG PO DAILY June 13, 2022 12:00am Start: 06-13-2022 take 500 ug by mouth once daily Mecobalamin (Vitamin B12) Active 500 MCG PO DAILY June 12, 2022 11:00pm Start: 06-13-2022 Mecobalamin (V itamin B12) Active MCG PO June 13, 2022 12:00am Multiple Vitamins-Iron (MULTIVITAMIN/IRON PO) (10 sources) Start: 08-30-2022 take 1 dose by mouth once daily Multiple Vitamins-Iron (MULTIVITAMIN/IRON PO) Take 1 Dose by mouth daily. 0 08/30/2022 Active Multiple Vitamins-Minerals (ONE-A-DAY ENERGY PO) (1 source) take 1 tablet by mouth once daily Multiple Vitamins-Minerals (ONE-A-DAY ENERGY PO) Take 1 tablet by mouth daily 0 Active multivitamin ORAL tablet (3 sources) Start: 06-08-2010 take 1 tablet by mouth once daily multivitamin ORAL tablet Take 1 tablet by mouth once daily. 0 06/08/2010 Active Multivitamin,Yb-Krdt-Lmdra als (Complete Multivitamin) tablet (19 sources) Start: 05-02-2018 take 1 tablet by mouth once daily Multivitamin,Bp-Bida-Tass rals (Complete Multivitamin) tablet Active 1 TABLET PO DAILY May 02, 2018 1:26pm Start: 05-02-2018 Multivitamin,T e-Vojx-Ljrmtyie (Complete Multivitamin) tablet Active 1 {tbl} PO DAILY May 02, 2018 12:00am supplement Start: 05-02-2018 Multivitamin,T d-Ablo-Qtjgkjqi (Complete Multivitamin) tablet Active 1 {tbl} PO DAILY May 02, 2018 12:00am Start: 05-02-2018 take 1 tablet by edmund th once daily Multivitamin,Uh-Sgib-Rfbbjdxx (Complete Multivitamin) tablet Active 1 TABLET PO DAILY May 01, 2018 11:00pm Start: 05-02-2018 take 1 tablet by edmund th once daily Multivitamin,Bk-Pkrk-Slxqqgvj (Complete Multivitamin) tablet Active 1 TABLET PO DAILY May 02, 2018 12:00am microencapsulated potassium chloride 20 meq extended release oral tablet (1 source) Start: 06-29-2022 End: 07-06-2022 take 1 tablet by mouth three times daily potassium chloride CR (Klor-Con M20) 20 MEQ ER tablet Indications: Hypokalemia Take 1 tablet (20 mEq) by mouth 3 times daily for 7 days. Do not crush or chew. 21 tablet 0 06/29/2022 07/06/2022 Active vitamin b12 0.5 mg oral tablet (19 sources) Vitamin B12 take 1 tablet by mouth once daily cyanocobalamin (Vitamin B-12) 500 MCG tablet Take 500 mcg by mouth daily. Sublingual 0 Active Zinc (6 sources) Start: 02-05-2023 take 1 tablet by mouth once daily Zinc 50 mg tablet Active 50 mg PO DAILY February 05, 2023 1:00am vitamin Start: 02-05-2023 take 1 tablet by mouth once da olena Zinc 50 mg tablet Active 50 mg PO DAILY February 05, 2023 1:00am Start: 02-05-2023 take 50 mg by mouth once daily Zinc Active 50 MG PO DAILY February 05, 2023 1:00am Start: 02-05-2023 take 50 mg by mouth once daily Zinc Active 50 MG PO DAILY February 05, 2023 12:00am zinc gluconate 50 mg oral tablet (8 sources) take 1 tablet by edmund th once daily zinc gluconate 50 MG tablet Take 50 mg by mouth daily. 0 Active Completed/Discontinued Medications Medication Drug Class(es) Dates Sig (Normalized) Sig (Original) acetaminophen 500 mg oral tablet (20 sources) Start: 05-24-2022 End: 05-24-2022 acetaminophen (Tylenol) tablet 1,000 mg take 1 tablet by edmund th every eight hours as needed acetaminophen (TYLENOL) 500 mg tablet Ta ke 500 mg by mouth three times a day as needed. Active take 1 tablet by edmund th every eight hours as needed for pain acetaminophen (Tylenol) 500 MG tablet Ta ke 500 mg by mouth every 8 hours as needed for mild pain (1-3). 0 Active Acetaminophen / oxyCODONE (20 sources) Opioid Agonist Start: 05-25-2022 End: 05-25-2022 take 1 tablet by mouth every four hours as needed for pain oxyCODONE-acetaminophen (Percocet) 5-325 MG per tablet 1 tablet Start: 05-24-2022 End: 06-01-2022 take 1 tablet by mouth every six hours as needed for pain oxyCODONE-acetaminophen (Percocet) 5-325 MG tablet Indications: Morbid obesity with BMI of 45.0-49.9, adult (HCC) Take 1 tablet by mouth every 6 hours as needed for severe pain (7-10) for up to 7 days. 28 tablet 0 05/24/2022 06/01/2022 Discontinued (Therapy completed) Start: 08-18-2020 End: 05-06-2021 Oxycodone-Acetaminophen (Per cocet) 5-325 mg tablet Discontinued 1 {tbl} PO Q4H as needed for pain 20 5 0 Maribell 29th, 2021 March 17th, 2022 11:42am Papillary carcinoma of thyroid Malignant neoplasm of thyroid gland albuterol 0.83 mg/ml inhalation solution (20 sources) beta2-Adrenergic Agonist Start: 05-25-2022 End: 05-25-2022 albuterol (2.5 MG/3ML) 0.083% nebulizer solution 2.5 mg Start: 08-14-2020 take 90 ug by inhala tion every six hours Albuterol Sulfate (Proair Digihaler) 90 mcg/actuation Aero Powdr Breath Act W/Sensor Active 2 NMA INHALATION EVERY 6 HOURS August 14, 2020 12:00am asthma Start: 01-28-2016 take 2 puff(s) by in halation every four hours as needed albuterol HFA (PROAIR HFA) 90 mcg/actuation inhaler Indications: Acute bronchitis, unspecified organism Inhale 2 Puffs as instructed every 4 hours as needed. 3 Inhaler 0 01/28/2016 Active biotin 5 mg sublingual tablet (9 sources) Start: 06-13-2022 End: 03-01-2024 take 1 tablet under the tongue once daily Biotin 5,000 mcg tablet, sublingual Discontinued 5000 ug SL DAILY June 13, 2022 12:00am March 01, 2024 3:59pm vitamin calcium carbonate 1000 mg chewable tablet (20 sources) Start: 06-13-2022 End: 02-05-2023 take 1 tablet by mouth once daily Calcium Carbonate (Antacid Ultra Strength) 400 mg calcium (1,000 mg) tablet,chewable Discontinued 400 mg PO DAILY June 13, 2022 12:00am February 05, 2023 7:23pm Start: 08-18-2020 End: 03-03-2022 take 1 tablet by mouth three times daily at mealtime Calcium Carbonate 200 mg calcium (500 mg) Tablet,Chewable Discontinued 1000 mg PO 3 TIMES DAILY WITH MEALS 105 7 0 August 18, 2020 12:00am March 03, 2022 12:44pm 1 po tid for one week End: 06-15-2023 CALCIUM CARBONATE ORAL Take by mouth. 0 06/15/2023 Discontinued End: 08-30-2022 calcium carbonate (Tums) 500 MG chewable tablet Chew 500 mg 3 times daily. 0 08/30/2022 Discontinued calcium carbonate-vitamin D3 200 mg-10 mcg (400 unit) cap (1 source) Start: 08-18-2020 End: 06-15-2023 calcium carbonate-vitamin D3 200 mg-10 mcg (400 unit) cap calcium chloride 0.0014 meq/ ml / potassium chloride 0.004 meq/ml / sodium chloride 0.103 meq/ml / sodium lactate 0.028 meq/ml injectable solution (3 sources) Start: 07-24-2023 End: 07-24-2023 lactated ringers iv infusion Start: 05-24-2022 End: 05-24-2022 lactated Ringer's (LR) infus ion celecoxib 400 mg oral capsule (2 sources) Nonsteroidal Anti-inflammatory Drug Start: 05-24-2022 End: 05-24-2022 celecoxib (CeleBREX) capsule 400 mg cephalexin 500 mg oral capsule (19 sources) Cephalosporin Antibacterial Start: 05-04-2018 End: 05-11-2018 take 1 capsule by mouth every twelve hours Cephalexin (Keflex) 500 mg capsule Discontinued 500 mg PO Q12H 14 7 0 May 04, 2018 12:00am May 10, 2018 12:00am May 11, 2018 12:08am clotrimazole 10 mg/ml topical cream (9 sources) Azole Antifungal Start: 06-13-2022 End: 02-05-2023 Clotrimazole 1 % cream Discontinued 1 NMA TOPICAL TWICE A DAY 30 14 2 June 13, 2022 12:00am February 05, 2023 7:21pm diphenhydrAMINE (1 source) Histamine-1 Receptor Antagonist Start: 07-24-2023 End: 07-24-2023 diphenhydrAMINE 12.5-50 mg injection (BENADRYL) 0.4 ml enoxaparin sodium 100 mg/ml prefilled syringe (2 sources) Low Molecular Weight Heparin Start: 05-24-2022 End: 05-25-2022 inject 40 mg by subcutaneous injection twice daily 40 mg, SubCUTAneous, 2 times daily, First dose on Mon05/24/22 at 2200, Phase II/On Unit Indication of Use: Prophylaxis-DVT/PE Indications: Prophylaxis of Venous Thromboembolism famotidine 20 mg oral tablet (4 sources) Histamine-2 Receptor Antagonist Start: 05-24-2022 End: 05-25-2022 take 20 mg by mouth twice daily 20 mg, Oral, 2 times daily, First dose on Mon05/24/22 at 2100, Phase II/On Unit 1 ml fentaNYL 0.05 mg/ml injection (1 source) Opioid Agonist Start: 07-24-2023 End: 07-24-2023 fentaNYL 50 mcg/mL 25-100 mcg injection (SUBLIMAZE) gabapentin 100 mg oral capsule (2 sources) Anti-epileptic Agent Start: 05-24-2022 End: 05-24-2022 gabapentin (Neurontin) capsule 100 mg 1000 ml glucose 50 mg/ml / potassium chloride 0.02 meq/ml / sodium chloride 9 mg/ml injection (2 sources) Start: 05-24-2022 End: 05-25-2022 take 100 mL intravenously every hour 100 mL/hr, IntraVENous, Continuous, Starting on Mon05/24/22 at 1815, Phase II/On Unit 0.5 ml heparin sodium, porcine [id number] unt/ml prefilled syringe (2 sources) Unfractionated Heparin, Anti-coagulant Start: 05-24-2022 End: 05-24-2022 heparin injection 5,000 Units HYDROmorphone (Dilaudid) injection 0.25 mg (2 sources) Start: 05-24-2022 End: 05-25-2022 HYDROmorphone (Dilaudid) injection 0.25 mg 1 ml ketorolac tromethamine 30 mg/ml cartridge (2 sources) Nonsteroidal Anti-inflammatory Drug, Cyclooxygenase Inhibitor Start: 05-24-2022 End: 05-25-2022 take 15 mg intravenously every six hours 15 mg, IntraVENous, Every 6 hours, First dose on Mon05/24/22 at 1815, For 12 doses, Phase II/On Unit Give in addition to any other pain medication ordered at same time for any pain indication. Lactobacillus Combination No.8 (Adult Probiotic) 3 billion cell capsule (19 sources) Start: 05-02-2018 End: 05-02-2019 take 3 capsules by mouth once daily Lactobacillus Combination No.8 (Adult Probiotic) 3 billion cell capsule Discontinued 3000 MMU CELLS PO DAILY May 02, 2018 1:26pm May 02, 2019 10:57am Start: 05-02-2018 End: 05-02-2019 take 3 capsules by mouth once daily Lactobacillus Combination No.8 (Adult Probiotic) 3 billion cell capsule Discontinued 3000 NMA PO DAILY May 02, 2018 12:00am May 02, 2019 10:57am Start: 05-02-2018 End: 05-02-2019 take 3 capsules by mouth once daily Lactobacillus Combination No.8 (Adult Probiotic) 3 billion cell capsule Discontinued 3000 MMU CELLS PO DAILY May 01, 2018 11:00pm May 02, 2019 9:57am Start: 05-02-2018 End: 05-02-2019 take 3 capsules by mouth once daily Lactobacillus Combination No.8 (Adult Probiotic) 3 billion cell capsule Discontinued 3000 MMU CELLS PO DAILY May 02, 2018 12:00am May 02, 2019 10:57am levothyroxine sodium 0.15 mg oral tablet (20 sources) l-Thyroxine Start: 05-25-2022 End: 05-25-2022 levothyroxine (Synthroid, Levoxyl) tablet 150 mcg Start: 12-05-2021 End: 08-04-2022 take 0.5 tablet by mouth once daily Levothyroxine 150 mcg tablet Discontinued 150 ug PO .qd, 1/2 on sundays 90 3 March 07, 2022 12:14pm August 04, 2022 1:45pm Start: 03-08-2021 End: 03-01-2024 Levothyroxine 150 mcg tablet Discontinued 150 ug PO .M-Sat 90 3 October 02, 2023 8:02am March 01, 2024 4:07pm thyroid Start: 09-10-2020 End: 03-08-2021 take 1 tablet by mouth once daily Levothyroxine 125 mcg tablet Discontinued 125 ug PO DAILY 90 3 September 10, 2020 12:00am March 08, 2021 12:42pm Start: 08-18-2020 End: 09-10-2020 take 1 tablet by mouth once daily Levothyroxine (Levoxyl) 100 mcg tablet Discontinued 100 ug PO DAILY 30 30 August 18, 2020 12:00am September 10, 2020 7:40am take 1 capsule by [facility] once daily before breakfast levothyroxine 100 mcg cap Take 100 mcg by mouth daily before breakfast. Active meloxicam 15 mg oral tablet (20 sources) Nonsteroidal Anti-inflammatory Drug Start: 09-02-2020 End: 05-06-2021 take 1 tablet by mouth once daily Meloxicam (Mobic) 15 mg tablet Discontinued 15 mg PO DAILY September 07, 2020 12:00am May 06, 2021 11:42am 5 ml midazolam 1 mg/ml injection (1 source) Benzodiazepine Start: 07-24-2023 End: 07-24-2023 midazolam (PF) 1-5 mg injection (VERSED) Multiple Vitamin (Multi-Vitamin) tablet (20 sources) Start: 06-08-2010 End: 06-29-2022 take 1 tablet by mouth in the morning Multiple Vitamin (Multi-Vitamin) tablet Take 1 tablet by mouth in the morning. 0 06/08/2010 06/29/2022 Discontinued (Therapy completed) Start: 06-08-2010 take 1 tablet by edmund th in the morning Multiple Vitamin (Multi-Vitamin) tablet Take 1 tablet by mouth in the morning. 0 06/08/2010 Active multivitamin-children's (Flintstones) 18 MG chewable tablet (6 sources) End: 08-30-2022 multivitamin-children's (Flintstones) 18 MG chewable tablet Chew 1 tablet daily. 0 08/30/2022 Discontinued multivitamin-chi ldren's (Flintstones) 18 MG chewable tablet Chew 1 tablet daily. 0 Active omeprazole 10 mg delayed release oral capsule (20 sources) Proton Pump Inhibitor Start: 06-13-2022 End: 02-05-2023 take 1 capsule by mouth once daily Omeprazole 10 mg capsule,delayed release(DR/EC) Discontinued 10 mg PO DAILY June 13, 2022 12:00am February 05, 2023 7:23pm Start: 05-04-2022 End: 12-27-2022 take 1 capsule by mouth once daily omeprazole (PriLOSEC) [address] capsule Take 1 capsule (20 mg) by mouth daily. Do not crush or chew. 90 capsule 1 05/04/2022 12/27/2022 Discontinued (Therapy completed) ondansetron 4 mg oral tablet (8 sources) Serotonin-3 Receptor Antagonist Start: 05-24-2022 End: 06-29-2022 take 2 tablets by mouth every eight hours as needed for nausea and vomiting ondansetron (Zofran) 4 MG tablet Take 2 tablets (8 mg) by mouth every 8 hours as needed for nausea or vomiting. 30 tablet 0 05/24/2022 06/29/2022 ondansetron ODT (Zofran-ODT) disintegrating tablet 4 mg (2 sources) Start: 05-24-2022 End: 05-25-2022 take 1 tablet by mouth every eight hours as needed for nausea and vomiting ondansetron ODT (Zofran-ODT) disintegrating tablet 4 mg oseltamivir 75 mg oral capsule (5 sources) Neuraminidase Inhibitor Start: 03-28-2023 End: 04-02-2023 take 1 capsule by mouth twice daily Oseltamivir 75 mg capsule Discontinued 75 mg PO TWICE A DAY 10 5 0 March 28, 2023 1:00am April 01, 2023 1:00am April 02, 2023 1:04am ursodiol 300 mg oral capsule (20 sources) Bile Acid Start: 05-04-2022 End: 02-05-2023 take 1 capsule by mouth twice daily Ursodiol 300 mg capsule Discontinued 300 mg PO TWICE A DAY June 13, 2022 12:00am February 05, 2023 7:23pm Problems Active Problems Problem Classification Problem Date Documented Da te Episodic/Chronic Abdominal hernia (4 sources) Hiatal hernia; Translations: [Diaphragmatic hernia without obstruction or gangrene] Episodic Abdominal pain (5 sources) Generalized abdominal pain; Translations: [Generalized abdominal pain] Episodic Asthma (3 sources) Unspecified asthma, uncomplicated; Translations: [Asthma, unspecified type, unspecified] 09-15-2005 Chronic Biliary tract disease (20 sources) Cholelithiasis without obstruction; Translations: [Calculus of gallbladder without cholecystitis without obstruction] Onset: 3 05-02-2022 Episodic Cancer of thyroid (20 sources) Papillary thyroid carcinoma; Translations: [Malignant neoplasm of thyroid gland] Onset: 5 Chronic Complications of surgical procedures or medical care (20 sources) Postoperative hypothyroidism; Translations: [Postprocedural hypothyroidism] Onset: 2 Chronic Conditions associated with dizziness or vertigo (1 source) Dizziness and giddiness; Translations: [Dizziness and giddiness] Onset: 5 Episodic Deficiency and other anemia (6 sources) Iron deficiency anemia; Translations: [Iron deficiency anemia, unspecified] Episodic Diabetes mellitus without complication (20 sources) Prediabetes; Translations: [Prediabetes] Onset: 2 10-06-2021 Episodic Disorders of lipid metabolism (3 sources) Hyperlipidemia; Translations: [Hyperlipidemia, unspecified] 04-22-2014 Chronic Esophageal disorders (6 sources) Gastroesophageal reflux disease without esophagitis; Translations: [Gastro-esophageal reflux disease without esophagitis] Chronic Other bone disease and musculoskeletal deformities (20 sources) Segmental and somatic dysfunction; Translations: [Segmental and somatic dysfunction of cervical region] 09-22-2022 Episodic Other endocrine disorders (3 sources) Polycystic ovary; Translations: [Polycystic ovarian syndrome] 09-15-2005 Chronic Other female genital disorders (6 sources) Enlarged uterus; Translations: [Hypertrophy of uterus] 06-19-2024 Episodic Comment on above: [place] ordered Other gastrointestinal disorders (1 source) Intestinal malabsorption; Translations: [Intestinal malabsorption, unspecified] 12-26-2022 Chronic Other gastrointestinal disorders (3 sources) Heartburn; Translations: [Heartburn] Episodic Other nutritional; endocrine; and metabolic disorders (4 sources) Morbid (severe) obesity due to excess calories; Translations: [Morbid (severe) obesity due to excess calories] Onset: 2 Chronic Other nutritional; endocrine; and metabolic disorders (2 sources) Body mass index (BMI) 40.0-44.9, adult; Translations: [Body mass index [BMI] 40.0-44.9, adult] Onset: 2 Chronic Other nutritional; endocrine; and metabolic disorders (20 sources) Morbid obesity; Translations: [Morbid (severe) obesity due to excess calories] Onset: 2 09-28-2021 Chronic Other nutritional; endocrine; and metabolic disorders (20 sources) Body mass index 40+ - severely obese; Translations: [Morbid (severe) obesity due to excess calories] Onset: 3 Chronic Other nutritional; endocrine; and metabolic disorders (6 sources) Severe obesity; Translations: [Morbid (severe) obesity due to excess calories] Chronic Other nutritional; endocrine; and metabolic disorders (6 sources) Obesity caused by energy imbalance; Translations: [Morbid (severe) obesity due to excess calories] 08-29-2022 Chronic Other nutritional; endocrine; and metabolic disorders (2 sources) Body mass index 30+ - obesity; Translations: [Body mass index (BMI) 39.0-39.9, adult] Onset: 3 08-29-2022 Chronic Other nutritional; endocrine; and metabolic disorders (2 sources) Body mass index (BMI) 33.0-33.9, adult; Translations: [Body mass index (BMI) 33.0-33.9, adult] Onset: 4 Chronic Other nutritional; endocrine; and metabolic disorders (2 sources) Other obesity due to excess calories; Translations: [Other obesity due to excess calories] Onset: 3 Chronic Other nutritional; endocrine; and metabolic disorders (2 sources) Body mass index (BMI) 34.0-34.9, adult; Translations: [Body mass index (BMI) 34.0-34.9, adult] Onset: 3 Chronic Other nutritional; endocrine; and metabolic disorders (2 sources) Body mass index (BMI) 36.0-36.9, adult; Translations: [Body mass index (BMI) 36.0-36.9, adult] Onset: 3 Chronic Other nutritional; endocrine; and metabolic disorders (1 source) Body mass index (BMI) 39.0-39.9, adult; Translations: [Body mass index (BMI) 39.0-39.9, adult] Onset: 3 Chronic Pancreatic disorders (not diabetes) (13 sources) Gallstone acute pancreatitis; Translations: [Biliary acute pancreatitis without necrosis or infection] 02-15-2023 Episodic Residual codes; unclassified (5 sources) Past history of procedure; Translations: [Other specified postprocedural states] 02-28-2023 Episodic Comment on above: with stent placement Residual codes; unclassified (1 source) Acquired absence of other specified parts of digestive tract; Translations: [Other acquired absence of organ] 02-27-2023 Episodic Spondylosis; intervertebral disc disorders; other back problems (15 sources) Backache; Translations: [Dorsalgia, unspecified] 09-22-2022 Episodic Thyroid disorders (14 sources) Hypothyroidism; Translations: [Hypothyroidism, unspecified] Onset: 3 Chronic Past or Other Problems Problem Classification Problem Date Documented Da te Episodic/Chronic Deficiency and other anemia (2 sources) Iron deficiency anemia, unspecified; Translations: [Iron deficiency anemia, unspecified] Onset: 08-30-2022 Episodic Fluid and electrolyte disorders (6 sources) Hypokalemia; Translations: [Hypokalemia] Onset: 06-29-2022 Episodic Nutritional deficiencies (20 sources) Deficiency of multiple nutrient elements; Translations: [Deficiency of multiple nutrient elements] Onset: 08-30-2022 Episodic Other bone disease and musculoskeletal deformities (8 sources) Segmental and somatic dysfunction of cervical region; Translations: [Nonallopathic lesions, cervical region] 09-22-2022 Episodic Other bone disease and musculoskeletal deformities (8 sources) Segmental and somatic dysfunction of lumbar region; Translations: [Nonallopathic lesions, lumbar region] 09-22-2022 Episodic Other bone disease and musculoskeletal deformities (8 sources) Segmental and somatic dysfunction of thoracic region; Translations: [Nonallopathic lesions, thoracic region] 09-22-2022 Episodic Other female genital disorders (1 source) Hypertrophy of uterus; Translations: [Hypertrophy of uterus] Onset: 06-30-2024 Episodic Other screening for suspected conditions (not mental disorders or infectious disease) (20 sources) Patient encounter status; Translations: [Encounter for screening mammogram for malignant neoplasm of breast] Onset: 07-24-2023 12-06-2021 Episodic Residual codes; unclassified (1 source) H/O: radiation exposure; Translations: [Personal history of irradiation] Episodic Results Test Name Value Interpretation Reference Range Facility Lipid Profileon 11-06-2024 CHOL:HDL 2.47 Normal [facility] Comment on above: Order Comment: Order Date: 11/06/24 Order Info: [id number] - LIPID Performed By: #### L 500.4100 #### [facility] [address] [place], [place], [address] Cholesterol [Mass/Vol] 180 mg/dL Normal <=200 [facility] Comment on above: Order Comment: Order Date: 11/06/24 Order Info: [id number] - LIPID Result Comment: Chol esterol level, Desirable <200 mg/dL Borderline high cholesterol 200-239 mg/dL High cholesterol >=240 mg/dL Recommendations of the NCEP Adult Treatment Panel for the following risk-cutoff thresholds for the [place] population. Performed By: #### L 500.4100 #### [facility] [address] [place], [place], [address] (464) Cholesterol in HDL [Mass/Vol] 73 mg/dL Normal [facility] Comment on above: Order Comment: Order Date: 11/06/24 Order Info: [id number] - LIPID Result Comment: Jaylyn onal Cholesterol Education Program (NCEP) guidelines: <40 mg/dL: Low HDL-cholesterol (major risk factor for CHD) >= 60 mg/dL: High HDL-cholesterol (negative risk factor for CHD) HDL-cholesterol is affected by a number of factors, e.g. smoking, exercise, hormones, sex and age. Performed By: #### L 500.4100 #### [facility] [address] [place], [address] Cholesterol in LDL [Mass/Vol] 87 mg/dL Normal [facility] Comment on above: Order Comment: Order Date: 11/06/24 Order Info: [id number] - LIPID Result Comment: Bord sgsrzk=400-973 mg/dL Higher Rrdu=866 mg/dL or greater Friedwald Equation for LDL-C Performed By: #### L 500.4100 #### [facility] [address] [place], [address] Cholesterol in VLDL [Mass/Vol] 20 mg/dL Normal 5-40 [facility] Comment on above: Order Comment: Order Date: 11/06/24 Order Info: [id number] - LIPID Performed By: #### L 500.4100 #### [facility] [address] [place], [address] Triglyceride [Mass/Vol] 98 mg/dL Normal [facility] Comment on above: Order Comment: Order Date: 11/06/24 Order Info: [id number] - LIPID Result Comment: The drugs N-Acetylcysteine and Metamizole may falsely depress this assay. Normal range: <150 mg/dL Borderline High: 150-199 mg/dL High: 200-499 mg/dL Very High: >500 mg/dL Performed By: #### L 500.4100 #### [facility] [address] [place], [place], [address] Brain/Head W/WO Contraston 0 10-09-2024 Brain/Head W/WO Contrast [facility] [address] [place] [address] Brain/Head W/WO Contrast MR#: [id number] Acct: [id number] Name: LAQUITA CHOUDHURY Rep #: [id number] : 1975 F 49 From: Kamaljit Soto MD PCP: Dr. Chris Rosa MD Status: REG CLI Study: Brain/Head W/WO Contrast Date of Exam: 5 Exam# [id number] Ordering Dr: Rell Aguayo MD PROCEDURE: CT BRAIN/HEAD W/WO CONTRAST 10/09/2024 REASON FOR EXAM: NEW ONSET VERTIGO AM WITH HYPOTHYROIDISM TECHNIQUE: CT BRAIN/HEAD W/WO CONTRAST Coronal and Sagittal reconstruction series were provided. CONTRAST: Isovue 370 VOLUME: 44 mL One or more dose reduction techniques were used (e.g., Automated exposure control, adjustment of the mA and/or kV according to patient size, use of iterative reconstruction technique). RADIATION DOSE SUMMARY: DLP: 1547.23 mGycm COMPARISON: None. FINDINGS: The ventricular and sulcal size and configuration are within normal limits. No acute intracranial hemorrhage, extra-axial collection, or evidence of acute infarct. No evidence for intracranial mass lesion or pathologic enhancement. Major vascular structures appear grossly patent on this nondedicated exam. Unremarkable orbits. Intact skull base and calvarium. Well-aerated paranasal sinuses and mastoid air cells. CT/Brain/Head W/WO Contrast IMPRESSION: Unremarkable head CT. Reading Location: [facility] CC: Dr. Rell Aguayo MD; Dr. Chris Rosa MD Edgerman: Signed Normal [facility] Breast imaging reportOrdered By: Elie Rodriguez on 08-06-2024 Study report [facility] [address] [place] [address] SCRN MAMM (CAD)W/STEPHANIE BILAT MR#: [id number] Acct: [id number] Name: LAQUITA CHOUDHURY Rep #: [id number] : 1975 F 49 From: Karthik Rodriguez MD PCP: Dr. Chris Rosa MD Status: RE G CLI Study:SCRN MAMM (CAD)W/STEPHANIE BILAT Date of Exa m: 08/05/24 Exam# [id number] Ordering Dr: Kenzie Fabian MD EXAM: SCRN MAMM (CAD)W/STEPHANIE BILAT DATE: 08/05/2024 CLINICAL HISTORY: F, Age 49 y/o , SCREENING MAMMOGRAM 2 maternal aunts with breast cancer. TECHNIQUE: Bilateral screening digital breast tomosynthesis with 2D and 3D images. Computeraided detection. COMPARISON: Prior exam(s) dated August 02, 2023.. FINDINGS: TISSUE DENSITY: The breast tissue is heterogeneously dense, which may obscure small masses. Bilateral Breast Mammographic Findings: No significant masses, calcifications or other abnormalities are identified. No suspicious masses, areas of developing architectural distortion, or suspicious calcifications. There has been no significant interval change. BI/SCRN MAMM (CAD)W/STEPHANIE BILAT IMPRESSION: Stable examination. OVERALL FINAL ASSESSMENT BI-RADS 1: NEGATIVE. RECOMMEND ANNUAL MAMMOGRAPHIC SCREENING. RECOMMENDATION: Routine annual follow-up in 1 Year A letter with findings and recommendations will be mailed to the patient. Reading Location: [place] [address] CC: Dr. Chris Rosa MD; Dr. Kenzie Bonilla MD ~ Edgerman: Signed [facility] SCRN MAMM (CAD)W/STEPHANIE BILATo n 08-05-2024 SCRN MAMM (CAD)W/STEPHANIE BILAT [facility] [address] [place] [address] SCRN MAMM (CAD)W/STEPHANIE BILAT MR#: [id number] Acct: [id number] Name: LAQUITA CHOUDHURY Rep #: [id number] : 1975 F 49 From: Elie gould MD PCP: Dr. Chris Rosa MD Status: REG CLI Study: SCRN MAMM (CAD)W/STEPHANIE BILAT Date of Exam: 07/21 08/14 Exam# [id number] Ordering Dr: Kenzie Bonilla EXAM: SCRN MAMM (CAD)W/STEPHANIE BILAT DATE: 08/05/2024 CLINICAL HISTORY: F, Age 49 y/o , SCREENING MAMMOGRAM 2 maternal aunts with breast cancer. TECHNIQUE: Bilateral screening digital breast tomosynthesis with 2D and 3D images. Computer aided detection. COMPARISON: Prior exam(s) dated August 02, 2023.. FINDINGS: TISSUE DENSITY: The breast tissue is heterogeneously dense, which may obscure small masses. Bilateral Breast Mammographic Findings: No significant masses, calcifications or other abnormalities are identified. No suspicious masses, areas of developing architectural distortion, or suspicious calcifications. There has been no significant interval change. BI/SCRN MAMM (CAD)W/STEPHANIE BILAT IMPRESSION: Stable examination. OVERALL FINAL ASSESSMENT BI-RADS 1: NEGATIVE. RECOMMEND ANNUAL MAMMOGRAPHIC SCREENING. RECOMMENDATION: Routine annual follow-up in 1 Year A letter with findings and recommendations will be mailed to the patient. Reading Location: [place] [address] CC: Dr. Chris Rosa MD; Dr. Kenzie Bonilla MD Edgerman: Signed Normal [facility] Pelvic w/ Transvaginalon Pelvic w/ Transvaginal [facility] [address] [place] [address] Pelvic w/ Transvaginal MR#: [id number] Acct: [id number] Name: LAQUITA CHOUDHURY Rep #: [id number] : 1975 F 49 From: Ra Salomon MD PCP: Dr. Chris Rosa MD Status: REG CLI Study: Pelvic w/ Transvaginal Date of Exam: 06/25/24 Exam# [id number] Ordering Dr: Kenzie Bonilla PROCEDURE: PELVIC W/ TRANSVAGINAL, 06/25/2024 REASON FOR EXAM: ENLARGED UTERUS TECHNIQUE: Grayscale and color doppler transabdominal and transvaginal pelvic ultrasound was performed. COMPARISON: None FINDINGS: Uterus: 12.6 x 7.5 x 7.5 cm, Anteverted. Multiple (3 visualized) presumed fibroids, largest posteriorly measuring 3.3 x 3.5 x 3.6 cm appears mostly intramural although it is difficult to exclude a small submucosal component. Borderline minimally heterogeneous background echotexture. Endometrium: 15 mm, echogenic secretory appearance. Cervix: Nabothian cysts. Right ovary: 4.4 x 3.8 x 3.3 cm. Simple appearing unilocular likely dominant follicle/physiologic cyst measures 2.2 x 2.9 x 2.2 cm, O-RADS 1, no follow-up.. Left ovary: Only visualized by limited transabdominal approach. 6.1 x 3.4 x 3.0 cm. Simple appearing unilocular cyst measures 2.5 x 3.7 x 2.1 cm, O-RADS 2, no follow-up in a premenopausal patient. Free fluid: None visualized. Other: Estimated bladder volume 970 mL.. US/Pelvic w/ Transvaginal IMPRESSION: 1. Small presumed uterine fibroids up to 3.6 cm. 2. Borderline minimally heterogeneous background uterine echotexture could suggest adenomyosis. 3. Additional description as above. Reading Location: [id number] CC: Dr. Chris Rosa MD; Dr. Kenzie Bonilla MD Edgerman: Signed Normal [facility] Furniture [employer] Office Visit Reporton 06-19-2024 Furn[facility] Office Visit Report [facility] [address], [address] [place] [address] OFFICE VISIT Date of Service: 06/19/24 MR#: [id number] Acct: [id number] Name: LAQUITA CHOUDHURY Rep #: [id number] : 1975 Provider: Dr. 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 Is patient in pain?: No Allergies No Known Allergies Allergy (Verified 06/19/24 13:36) Medications ???Medication ???Instructions ???Recorded ???Confirmed ???Type multivitamin,vi-osnb-zlohaj ls 1 tab PO DAILY supplement 05/02/18 06/19/24 History (Complete Multivitamin tablet) cholecalciferol (vitamin D3) 50 50 mcg PO DAILY supplement 1 06/19/24 History mcg (2,000 unit) capsule albuterol sulfate 90 mcg/actuation 2 inh inhalation Q6H asthma 07/2206/19/24 History breath activated powder inhaler,sensor (Proair Digihaler) cetirizine 10 mg capsule (All Day 10 mg PO DAILY allergies 06/13/22 06/19/24 History Allergy (cetirizine)) mecobalamin (vitamin B12) 500 mcg 500 mcg PO DAILY vitamin 06/13/22 06/19/24 History chewable tablet ascorbic acid (vitamin C) 500 mg 500 mg PO DAILY vitamin 02/05/23 0 06/19/24 History tablet (Vitamin C) calcium 315 mg (as 2 tab PO TID vitamin 02/05/2305/23 History citrate)-vitamin D3 6.25 mcg (250 unit) tablet (Citracal + Vitamin D Maximum) ferrous sulfate 325 mg (65 mg 650 mg PO QODAY iron deficiency 06/19/24 History iron) tablet (Feosol) zinc 50 mg tablet 50 mg PO DAILY vitamin 02/05/23 History levothyroxine 150 mcg tablet 150 mcg PO .M-Sat thyroid #90 tabs 03/01/24 06/19/24 Rx Is last menstrual period known: Yes Last Menstrual Period: 05/18/24 Post menopausal: No Patient : No : No [facility] Medical History (Updated 06/19/24 @ 13:[address] Kenzie Bonilla MD) Cancer Low iron Dietary restriction Cholelithiasis Chronic cholecystitis Thyroid cancer Postoperative primary hypothyroidism Papillary thyroid carcinoma Wears contact lenses Alcohol use Thyroid disease Non-smoker Asthma Surgical History (Updated 06/19/24 @ 13:[address] Kenzie Bonilla MD) S/P laparoscopic cholecystectomy H/O gastric sleeve H/O total thyroidectomy with radical neck dissection History of ovarian cystectomy Hx of appendectomy History of dilation and curettage History of tonsillectomy History of ankle surgery Social History (Updated 06/19/24 @ 13:41 by Christen Donald) housing: house number of children: 3 Smoking Status: Never smoker alcohol intake: never substance use type: does not use caffeine: Yes what type of physical activity do you participate in: walking seatbelt use: always do you feel safe at home: Yes 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 Date Name GA/Weeks Outcome Route Bth Weight Gen Labor Lgth Anesthesia Del Locatn Provider FOB Unknown 1997 Ros live - full term Unknown 2000 Dandy live - full term Unknown El[facility] (adopted) HPI Encounter for routine gynecological examination Details: LAQUITA CHOUDHURY is a 49 year old who presents for annual exam. Last PAP: 2021 History of abnormal PAP: 05/06/2021 - normal Last mammogram: 08/02/2023 - normal History of abnormal mammogram: Colon cancer screening: last year - normal Other preventative health care screenings: PCP [facility] Female Reproductive History Last Menstrual Period: 05/18/24 Questions: metorrhagia: No, sexually active: Yes, dyspareunia: No and PCB: No Menopausal Symptoms: No hot flashes, No night sweats, No weight change, No mood changes, No difficulty concentrating, No sleep problems and No change in libido ROS Const Constitutional: Reports as per HPI; Denies fatigue, increased appetite, poor appetite, night sweats, weight gain or weight loss Cardio Card: Denies chest pain Resp Resp: Denies cough or dyspnea GI GI: Reports as per HPI; Denies abdominal pain, bloating, constipation, nausea or vomiting : Reports as per HPI and other; Denies difficulty voiding, dysuria, hematuria, hot flashes, nipple d (more content not included)... Normal [facility] Absolute lymphocyte countOrd ered By: Chris Villarramin on 05-07-2024 Lymphocytes Auto (Unsp spec) [#/Vol] 1.90 10*3/uL 0.83-4.51 [facility] Absolute neutrophil countOrd ered By: Chris Villarramin on 05-07-2024 Neutrophils (Bld) [#/Vol] 3.1 10*3/uL 2.0-7.7 [facility] Automated lymphocyte count a s percentage of total leukocytesOrdered By: Chris Rosa on 05-07-2024 Lymphocytes/100 WBC Auto (Unsp spec) 34.4 % 19-41 [facility] Basophil percentageOrdered B y: Chris Rosa on 05-07-2024 Basophils/100 WBC (Bld) 0.4 % 0-1 [facility] CBC W/Diff, Automatedon 04-20 Absolute Lymph 1.90 X10 3/uL Normal 0.83-4.51 [facility] Comment on above: Performed By: #### L 501.9520, L506.0400 #### [facility] [address] [place], [address] Absolute Neut 3.1 X10 3/uL Normal 2.0-7.7 [facility] Comment on above: Performed By: #### L 501.9520, L506.0400 #### [facility] [address] [place], [address] Basophils/100 WBC (Bld) 0.4 % Normal 0-1 [facility] Comment on above: Performed By: #### L 501.9520, L506.0400 #### [facility] [address] [place], [address] Eosinophils/100 WBC (Bld) 1.6 % Normal 0-5 [facility] Comment on above: Performed By: #### L 501.9520, L506.0400 #### [facility] [address] [place], [address] Erythrocyte distribution width (RBC) [Ratio] 12.7 % Normal 11.6-14.6 [facility] Comment on above: Performed By: #### L 501.9520, L506.0400 #### [facility] [address] [place], [address] Hematocrit (Bld) [Volume fraction] 35.5 % Low 37-47 [facility] Comment on above: Performed By: #### L 501.9520, L506.0400 #### [facility] [address] [place], [address] Hemoglobin (Bld) [Mass/Vol] 11.8 g/dL Low 12.0-15.0 [facility] Comment on above: Performed By: #### L 501.9520, L506.0400 #### [facility] [address] [place], [address] IG% 0.400 Normal 0.0-0.9 [facility] Comment on above: Result Comment: IG% - Immature Granulocytes (promyelocytes, myelocytes and metamyelocytes) > 1% indicates that a LEFT SHIFT is Present. Performed By: #### L 501.9520, L506.0400 #### [facility] [address] [place], [address] Lymphocytes/100 WBC (Bld) 34.4 % Normal 19-41 [facility] Comment on above: Performed By: #### L 501.9520, L506.0400 #### [facility] [address] [place], [address] MCH (RBC) [Entitic mass] 30.6 pg Normal 27.0-32.0 [facility] Comment on above: Performed By: #### L 501.9520, L506.0400 #### [facility] [address] [place], [address] MCHC (RBC) [Mass/Vol] 33.2 g/dL Normal 32-36 [facility] Comment on above: Performed By: #### L 501.9520, L506.0400 #### [facility] [address] [place], [address] MCV (RBC) [Entitic vol] 92.0 fL Normal 81-99 [facility] Comment on above: Performed By: #### L 501.9520, L506.0400 #### [facility] [address] [place], [address] Monocytes/100 WBC (Bld) 6.5 % Normal 0-10 [facility] Comment on above: Performed By: #### L 501.9520, L506.0400 #### [facility] [address] [place], [address] Neutrophils/100 WBC (Bld) 56.7 % Normal 47-70 [facility] Comment on above: Performed By: #### L 501.20, L506.0400 #### [facility] [address] [place], [address] Nucleated RBC (Bld) [#/Vol] 0 10*3/uL Normal 0-5 [facility] Comment on above: Performed By: #### L 501.9520, L506.0400 #### [facility] [address] [place], [address] Platelet mean volume (Bld) [Entitic vol] 12.4 fL High 6.2-12.0 [facility] Comment on above: Performed By: #### L 501.9520, L506.0400 #### [facility] [address] [place], [address] Platelets (Bld) [#/Vol] 206 10*3/uL Normal 150-450 [facility] Comment on above: Performed By: #### L 501.9520, L506.0400 #### [facility] [address] [place], [address] RBC (Bld) [#/Vol] 3.86 10*6/uL Low 4.2-5.4 [facility] Comment on above: Performed By: #### L 501.9520, L506.0400 #### [facility] [address] [place], [place], [address] RDW SD 42.1 fl Normal 35.1-43.9 [facility] Comment on above: Performed By: #### L 501.9520, L506.0400 #### [facility] [address] [place], [address] WBC (Bld) [#/Vol] 5.5 10*3/uL Normal 4.4-11.0 [facility] Comment on above: Performed By: #### L [id number], L506.0400 #### [facility] [address] [place], [address] Calculated total iron bindin g capacityOrdered By: Chris Rosa on 05-07-2024 Total Iron Binding Capacity 304 ug/dL 250-450 [facility] Eosinophil percentageOrdered By: Chris Rosa on 05-07-2024 Eosinophils/100 WBC (Bld) 1.6 % 0-5 [facility] Erythrocyte distribution wid th ratioOrdered By: Chris Rosa on 05-07-2024 Erythrocyte distribution width (RBC) [Ratio] 12.7 % 11.6-14.6 [facility] Erythrocyte distribution wid th standard deviationOrdered By: Chris Rosa on 05-07-2024 Erythrocyte distribution width (RBC) [Entitic vol] 42.1 fL 35.1-43.9 [facility] Erythrocyte distribution width (RBC) [Ratio] 42.1 fl 35.1-43.9 [facility] Ferritinon 05-07-2024 Ferritin [Mass/Vol] 21 ng/mL Low 22-378 [facility] Comment on above: Performed By: #### L 501.9520, L506.0400 #### [facility] [address] [place], [address] Hematocrit Auto (Bld) [Volum e fraction]Ordered By: Chris Rosa on 05-07-2024 Hematocrit (Bld) [Volume fraction] 35.5 % Low 37-47 [facility] Hemoglobin measurementOrdere d By: Chris Rosa on 05-07-2024 Hemoglobin (Bld) [Mass/Vol] 11.8 g/dL Low 12.0-15.0 [facility] Immature granulocytes/100 WB C Auto (Bld)Ordered By: Chris Rosa on 05-07-2024 Immature granulocytes/100 WBC (Bld) 0.400 % 0.0-0.9 [facility] Comment on above: IG% - Immature Granu locytes (promyelocytes, myelocytes and metamyelocytes) > 1% indicates that a LEFT SHIFT is Present. Iron (Unsp spec) [Mass/Mass] Ordered By: Chris Rosa on 05-07-2024 Iron [Mass/Vol] 38 ug/dL Low 50-170 [facility] Iron measurement (mass/mass) Ordered By: Chris Rosa on 05-07-2024 Iron (Unsp spec) [Mass/Mass] 38 ug/dL Low 50-170 [facility] Iron saturation [Mass fracti on]Ordered By: Chris Rosa on 05-07-2024 Iron Saturation 13.0 % 13-59 [facility] Iron+Iron Binding Capacityon 05-07-2024 Iron [Mass/Vol] 38 ug/dL Low 50-170 [facility] Comment on above: Performed By: #### L 501.9520, L506.0400 #### [facility] [address] [place], [address] IRON SATURATION 13.0 Normal 13-59 [facility] Comment on above: Performed By: #### L [id number], L506.0400 #### [facility] [address] [place], [address] TIBC 304 ug/dL Normal 250-450 [facility] Comment on above: Performed By: #### L [id number], L506.0400 #### [facility] [address] [place], [address] UIBC 266 ug/dL Normal 228-428 [facility] Comment on above: Performed By: #### L [id number], L506.0400 #### [facility] [address] [place], [address] L506.1001on 05-07-2024 Vitamin D 25-OH 118.0 ng/mL High 30-100 [facility] Comment on above: Result Comment: Viola min D Status Deficiency: <20 ng/mL (50nmol/L) Insufficiency: 20-30 ng/mL (50-75 nmol/L) Sufficiency: 30-100 ng/mL (75-250 nmol/L) Toxicity: >100 ng/mL (>250 nmol/L) Performed By: #### L [id number], L506.0400 #### [facility] [address] [place], [address] Lymphocytes Auto (Unsp spec) [#/Vol]Ordered By: Chris Rosa on 05-07-2024 Lymphocytes (Bld) [#/Vol] 1.90 10*3/uL 0.83-4.51 [facility] Lymphocytes/100 WBC Auto (Un sp spec)Ordered By: Chris Rosa on 05-07-2024 Lymphocytes/100 WBC (Bld) 34.4 % 19-41 [facility] MCV (mean corpuscular volume ) determinationOrdered By: Chris Rosa on 05-07-2024 MCV (RBC) [Entitic vol] 92.0 fL 81-99 [facility] Mean corpuscular hemoglobin (MCH) determinationOrdered By: Chris Rosa on 05-07-2024 MCH (RBC) [Entitic mass] 30.6 pg 27.0-32.0 [facility] Mean corpuscular hemoglobin concentration (MCHC) determinationOrdered By: Chris Rosa on 05-07-2024 MCHC (RBC) [Mass/Vol] 33.2 g/dL 32-36 [facility] Mean platelet volume determi nationOrdered By: Chris Rosa on 05-07-2024 Platelet mean volume (Bld) [Entitic vol] 12.4 fL High 6.2-12.0 [facility] Monocyte percentageOrdered B y: Chris Rosa on 05-07-2024 Monocytes/100 WBC (Bld) 6.5 % 0-10 [facility] Neutrophil percentageOrdered By: Chris Rosa on 05-07-2024 Neutrophils/100 WBC (Bld) 56.7 % 47-70 [facility] No Panel InformationOrdered By: Chris Rosa on 05-07-2024 Unsaturated Iron Binding Capacity 266 ug/dL 228-428 [facility] Nucleated red blood cell per centageOrdered By: Chris Rosa on 05-07-2024 Nucleated RBC/100 WBC (Bld) [Ratio] 0 % 0-5 [facility] Platelet countOrdered By: Elizabeth Rosa on 05-07-2024 Platelets (Bld) [#/Vol] 206 10*3/uL 150-450 [facility] RBC Auto (Bld) [#/Vol]Ordere d By: Chris Rosa on 05-07-2024 RBC (Bld) [#/Vol] 3.86 10*6/uL Low 4.2-5.4 [facility] Serum or plasma ferritin cornelia surement (mass/volume)Ordered By: Chris Rosa on 05-07-2024 Ferritin [Mass/Vol] 21 ng/mL Low 22-378 [facility] Serum or plasma iron saturat ion measurement (mass fraction)Ordered By: Chris Rosa on 05-07-2024 Iron saturation [Mass fraction] 13.0 % 13-59 [facility] Vitamin D, 25-hydroxyOrdered By: Chris Rosa on 05-07-2024 Vitamin D 25-Hydroxy 118.0 ng/mL High 30-100 [facility] Comment on above: Vitamin D StatusDefi ciency: <20 ng/mL (50nmol/L)Insufficiency: 20-30 ng/mL (50-75 nmol/L)Sufficiency: 30-100 ng/mL (75-250 nmol/L)Toxicity: >100 ng/mL (>250 nmol/L) White blood cell (WBC) count Ordered By: Chris Rosa on 05-07-2024 WBC (Bld) [#/Vol] 5.5 10*3/uL 4.4-11.0 [facility] Endocrinology Visit Reporton 03-01-2024 Endocrinology Visit Report [facility] [address] [place] [address] OFFICE VISIT Date of Service: 03/01/24 MR#: [id number] Acct: [id number] Name: LAQUITA CHOUDHURY Rep #: [id number] : 1975 Provider: Ian Cates Age/Sex: 48/F Location: [facility] Status: Signed Intake Vital Signs 03/02/23 11:25 06/19/23 15:15 03/01/24 14:57 Height 5 ft 1 in 5 ft 2 in 5 ft 2 in Weight: 173 lb 8 oz BMI 31.7 BP 137/85 H Blood Pressure Location Lt brachial Position Sitting Pulse 94 Pulse Source Monitor Pulse Oximetry (%) 99 Oxygen Delivery Method room air Intake Visit Reasons: 1 Y FU Chief Complaint: Thyroid Is patient in pain?: No Allergies No Known Allergies Allergy (Verified 03/01/24 14:59) Medications ???Medication ???Instructions ???Recorded ???Confirmed ???Type multivitamin,[id number] ls 1 tab PO DAILY supplement 05/02/18 03/01/24 History (Complete Multivitamin tablet) cholecalciferol (vitamin D3) 50 50 mcg PO DAILY supplement 05/04/20 03/01/24 History mcg (2,000 unit) capsule albuterol sulfate 90 mcg/actuation 2 inh inhalation Q6H asthma 08/14/20 03/01/24 History breath activated powder inhaler,sensor (Proair Digihaler) cetirizine 10 mg capsule (All Day 10 mg PO DAILY allergies 06/13/22 03/01/24 History Allergy (cetirizine)) mecobalamin (vitamin B12) 500 mcg 500 mcg PO DAILY vitamin 06/13/22 03/01/24 History chewable tablet ascorbic acid (vitamin C) 500 mg 500 mg PO DAILY vitamin 02/05/23 03/01/24 History tablet (Vitamin C) calcium 315 mg (as 2 tab PO TID vitamin 02/05/23 03/01/24 History citrate)-vitamin D3 6.25 mcg (250 unit) tablet (Citracal + Vitamin D Maximum) ferrous sulfate 325 mg (65 mg 650 mg PO QODAY iron deficiency 02/05/23 03/01/24 History iron) tablet (Feosol) zinc 50 mg tablet 50 mg PO DAILY vitamin 02/05/23 03/01/24 History levothyroxine 150 mcg tablet 150 mcg PO .M-Sat thyroid #90 tabs 03/01/24 03/01/24 Rx PFSH Medical History (Updated 03/04/24 @ 07:[address] Vicente Adorno MD) Cancer Low iron Dietary restriction Cholelithiasis Chronic cholecystitis Thyroid cancer Postoperative primary hypothyroidism Papillary thyroid carcinoma Wears contact lenses Alcohol use Thyroid disease Non-smoker Asthma Surgical History S/P laparoscopic cholecystectomy H/O gastric sleeve H/O total thyroidectomy with radical neck dissection History of ovarian cystectomy Hx of appendectomy History of dilation and curettage History of tonsillectomy History of ankle surgery Social History Smoking Status: Never smoker alcohol intake: never substance use type: does not use caffeine: Yes what type of physical activity do you participate in: walking seatbelt use: always do you feel safe at home: Yes 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 [employer] [facility] Chief Complaint: Thyroid Details: LAQUITA CHOUDHURY, is a 48 F who presents to the office today for follow up. She was noted to have a thyroid nodule in Jun, 2020. She had FNA August 04, 2020. Cytology was suspicious for papillary thyroid cancer. She had total thyroidectomy with lymph nodes removed on August 17, 2020. Pathology: Right lobe nodule 1.5 x 1.2 x 1 cm positive for papillary thyroid carcinoma ? Left lobe nodule follicular neoplasm. ? Perithyroid nodes 2 out of 3 sampled nodes positive for 1 mm papillary carcinoma ? Central compartment 1 out of 2 samples nodes positive for < 1 mm papillary carcinoma ? Inferior compartment 3 out of 4 nodes positive for 1 mm papillary carcinoma. She was treated with 30 mci of I131 in September,. TSH is 1.4 TG 0.1 ROS Const Constitutional: No fatigue or weight change ENT ENT: No dizziness/vertigo Cardio Cardiology: No chest pain at rest, chest pain with exertion, shortness of breath or palpitations Skin Skin: No wounds Endo Endocrine: No fatigue or weight change Exam Const General: cooperative, healthy appearing, comfortable, no acute distress, well developed and not cushingoid Nutritional Appearance: well nourished Orientation: alert, awake and oriented x3 HENMT Head: normal to inspection Ears: hearing grossly normal bilaterally Nose: external nose normal Mouth: oral mucosae normal Eyes General: appearance normal, both eyes and all related structures Alignment and Position: alignment normal Periorbital: periorbital findings normal Eyelids: eyelids normal Conjunctivae: conjunctivae normal Neck Neck: normal visual inspection Neck ma (more content not included)... Normal [facility] Thyroglobulin w/Anti-TG ABon 02-22-2024 Anti-TG AB < 1.0 Normal 0.0-0.9 [facility] Comment on above: Order Comment: Reaso n for Laboratory Test x Result Comment: Thyr oglobulin Antibody measured by [employer] Methodology It should be noted that the presence of thyroglobulin antibodies may not be pathogenic nor diagnostic, especially at very low levels. The assay hospitality ambassador has found that four percent of individuals without evidence of thyroid disease or autoimmunity will have positive TgAb levels up to 4 IU/mL. Performed By: #### L [id number], L506.0400 #### [facility] [address] [place], [address] THYROGLOB QUANT 0.1 ng/mL Low 1.5-38.5 [facility] Comment on above: Order Comment: Reaso n for Laboratory Test x Result Comment: Acco rding to the National Academy of Clinical Biochemistry, the reference interval for Thyroglobulin (TG) should be related to euthyroid patients and not for patients who underwent thyroidectomy. TG reference intervals for these patients depend on the residual mass of the thyroid tissue left after surgery. Establishing a post-operative baseline is recommended. The assay limit of quantitation is 0.1 ng/mL Thyroglobulin measured by [employer] Immunometric Assay Performed at: [address] [id number] [employer] Chief: Eddie Koch PhD, Phone: [phone] Performed By: #### L [id number], L506.0400 #### [facility] [address] [place], [address] Direct serum free thyroxine (FT4) measurementOrdered By: Vicente Adorno on 02-20-2024 Free T4 [Mass/Vol] 1.17 ng/dL 0.76-1.46 [facility] T4 Free Directon 02-20-2024 T4 FREE DIRECT 1.17 ng/dL Normal 0.76-1.46 [facility] Comment on above: Performed By: #### L 506.0400, L3300.6820, L501.9520 #### [facility] [address] [place], [address] TSH QnOrdered By: Vicente Adorno on 02-20-2024 Thyroid Stimulating Hormone (TSH) 1.400 uIU/mL 0.358-3.74 0 [facility] Thyroglobulin Ab serumOrdere d By: Vicente Adorno on 02-20-2024 Thyroglobulin Antibody < 1.0 IU/mL 0.0-0.9 [facility] Comment on above: Thyroglobulin Antibo dy measured by [employer] CoulterMethodologyIt should be noted that the presence of thyroglobulinantibodies may not be pathogenic nor diagnostic, especiallyat very low levels. The assay hospitality ambassador has found thatfour percent of individuals without evidence of thyroiddisease or autoimmunity will have positive TgAb levels upto 4 IU/mL. Thyroglobulin serOrdered By: Vicente Adorno on 02-20-2024 Thyroglobulin Level 0.1 ng/mL Low 1.5-38.5 [facility] Comment on above: According to the [facility] Academy of Clinical Biochemistry,the reference interval for Thyroglobulin (TG) should berelated to euthyroid patients and not for patients whounderwent thyroidectomy. TG reference intervals for thesepatients depend on the residual mass of the thyroid tissueleft after surgery. Establishing a post-operative baselineis recommended. The assay limit of quantitation is 0.1ng/mLThyroglobulin measured by [employer] ImmunometricAssayPerformed at: [facility] [id number] Director: Eddie Koch PhD, Phone: [phone] Thyroid Stim Hormone (TSH)on 02-20-2024 TSH 1.400 uIU/mL Normal 0.358-3.74 0 [facility] Comment on above: Performed By: #### L 506.0400, L3300.6820, L501.9520 #### [facility] [address] [place], [address] T4 Free Directon 11-23-2023 T4 FREE DIRECT 1.08 ng/dL Normal 0.76-1.46 [facility] Comment on above: Performed By: #### L 501.9520, L506.0400 #### [facility] [address] [place], [address] Thyroid Stim Hormone (TSH)on 11-23-2023 TSH 0.865 uIU/mL Normal 0.358-3.74 0 [facility] Comment on above: Performed By: #### L 501.9520, L506.0400 #### [facility] [address] [place], [address] [id number] 07-24-2023 [id number] HNO ID: [id number] Author: NERY HAND RN Service: ? Author Type: Registered Nurse Type: [id number] Filed: 07/24/2023 10:34 Note Text: The patient received a copy of Colonoscopy discharge instructions that contain information for how to contact the physician who performed the procedure and when to seek medical care. Nery Hand RN Normal [facility] Colonoscopyon 07-24-2023 Colonoscopy [place] [facility] Gastrointestinal Endoscopy Patient Name: Laquita Choudhury Procedure Date: 07/24/2023 9:34 AM Date of : 1975 Admit Type: Outpatient Age: 48 Gender: Female Note Status: Finalized Procedure: Colonoscopy Indications: Screening for colorectal malignant neoplasm Providers: Robert Johnson MD Patient Profile: This is a 48 year old female. Refer to note in patient chart for documentation of history and physical. Last Colonoscopy: none. The patient's first colonoscopy is today. Referring Physician: Robert Johnson MD (Referring MD), Chris Rosa (Referring ) Medicines: Fentanyl 50 micrograms IV, Midazolam 5 mg IV, Diphenhydramine 50 mg IV Complications: No immediate complications. Estimated blood loss: None. Requesting Provider: Procedure: Pre-Anesthesia Assessment: - Prior to the procedure, a History and Physical was performed, and patient medications and allergies were reviewed. The patient's tolerance of previous anesthesia was also reviewed. The risks and benefits of the procedure and the sedation options and risks were discussed with the patient. All questions were answered, and informed consent was obtained. Prior Anticoagulants: The patient has taken no anticoagulant or antiplatelet agents. ASA Grade Assessment: II - A patient with mild systemic disease. After reviewing the risks and benefits, the patient was deemed in satisfactory condition to undergo the procedure. After I obtained informed consent, the scope was passed under direct vision. Throughout the procedure, the patient's blood pressure, pulse, and oxygen saturations were monitored continuously. The Colonoscope was introduced through the anus and advanced to the cecum, identified by appendiceal orifice and ileocecal valve. The colonoscopy was performed without difficulty. The patient tolerated the procedure well. The quality of the bowel preparation was good. The ileocecal valve, appendiceal orifice, and rectum were photographed. Moderate Sedation: The administration of moderate sedation was initiated at 09:46 AM. Moderate (conscious) sedation was personally administered by the endoscopist. The following parameters were monitored: oxygen saturation, heart rate, blood pressure, respiratory rate, EKG, adequacy of pulmonary ventilation, and response to care. Total physician intraservice time was 17 minutes. Findings: The perianal and digital rectal examinations were normal. Non-bleeding internal hemorrhoids were found during retroflexion. The hemorrhoids were mild and small. The exam was otherwise without abnormality. Impression: - Non-bleeding internal hemorrhoids. - The examination was otherwise normal. - No specimens collected. Recommendation: - Patient has a contact number available for emergencies. The signs and symptoms of potential delayed complications were discussed with the patient. Return to normal activities tomorrow. Written discharge instructions were provided to the patient. - Resume previous diet. - Continue present medications. - Repeat colonoscopy in 10 years for screening purposes. - Return to primary care physician PRN. Procedure Code(s): --- Professional --- 61034, Colonoscopy, flexible; diagnostic, including collection of specimen(s) by brushing or washing, when performed (separate procedure) G0500, Moderate sedation services provided by the same physician or other qualified health caregivers non medical performing a gastrointestinal endoscopic service that sedation supports, requiring the presence of an independent trained observer to assist in the monitoring of the patient's level of consciousness and physiological status; initial 15 minutes of intra-service time; patient age 5 years or older (additional time may be reported with 10349, as appropriate) Diagnosis Code(s): --- Professional --- Z12.11, Encounter for screening for malignant neoplasm of colon K64.8, Other hemorrhoids CPT copyright 2020 [employer]. All rights reserved. The codes documented in this report are preliminary and upon design/animation instructor review may be revised to meet current compliance requirements. Attending Participation: I personally performed the entire procedure. Scope In: 9:51:58 AM Scope Out: 10:03:06 AM MD Robert Villanueva MD 07/24/2023 10:06:43 AM This report has been signed electronically by Robert Johnson MD Number of Addenda: 0 Note Initiated On: 07/24/2023 9:34 AM Estimated Blood Loss: Estimated blood loss: none. Normal [facility] Colonoscopy [facility] observatio non [facility] Patient Name: Laquita Choudhury Procedure Date: 07/24/2023 9:34 AM Date of : 1975 Admit Type: Outpatient Age: 48 Gender: Female Note Status: Finalized Procedure: Colonoscopy Indications: Screening for colorectal malignant neoplasm Providers: Robert Johnson MD Patient Profile: This is a 48 year old female. Refer to note in patient chart for documentation of history and physical. Last Colonoscopy: none. The patient's first colonoscopy is today. Referring Physician: Robert Johnson MD (Referring MD), Chris Rosa (Referring ) Medicines: Fentanyl 50 micrograms IV, Midazolam 5 mg IV, Diphenhydramine 50 mg IV Complications: No immediate complications. Estimated blood loss: None. Requesting Provider: Procedure: Pre-Anesthesia Assessment: - Prior to the procedure, a History and Physical was performed, and patient medications and allergies were reviewed. The patient's tolerance of previous anesthesia was also reviewed. The risks and benefits of the procedure and the sedation options and risks were discussed with the patient. All questions were answered, and informed consent was obtained. Prior Anticoagulants: The patient has taken no anticoagulant or antiplatelet agents. ASA Grade Assessment: II - A patient with mild systemic disease. After reviewing the risks and benefits, the patient was deemed in satisfactory condition to undergo the procedure. After I obtained informed consent, the scope was passed under direct vision. Throughout the procedure, the patient's blood pressure, pulse, and oxygen saturations were monitored continuously. The Colonoscope was introduced through the anus and advanced to the cecum, identified by appendiceal orifice and ileocecal valve. The colonoscopy was performed without difficulty. The patient tolerated the procedure well. The quality of the bowel preparation was good. The ileocecal valve, appendiceal orifice, and rectum were photographed. Moderate Sedation: The administration of moderate sedation was initiated at 09:46 AM. Moderate (conscious) sedation was personally administered by the endoscopist. The following parameters were monitored: oxygen saturation, heart rate, blood pressure, respiratory rate, EKG, adequacy of pulmonary ventilation, and response to care. Total physician intraservice time was 17 minutes. Findings: The perianal and digital rectal examinations were normal. Non-bleeding internal hemorrhoids were found during retroflexion. The hemorrhoids were mild and small. The exam was otherwise without abnormality. Impression: - Non-bleeding internal hemorrhoids. - The examination was otherwise normal. - No specimens collected. Recommendation: - Patient has a contact number available for emergencies. The signs and symptoms of potential delayed complications were discussed with the patient. Return to normal activities tomorrow. Written discharge instructions were provided to the patient. - Resume previous diet. - Continue present medications. - Repeat colonoscopy in 10 years for screening purposes. - Return to primary care physician PRN. Procedure Code(s): --- Professional --- 59249, Colonoscopy, flexible; diagnostic, including collection of specimen(s) by brushing or washing, when performed (separate procedure) G0500, Moderate sedation services provided by the same physician or other qualified health caregivers non medical performing a gastrointestinal endoscopic service that sedation supports, requiring the presence of an independent trained observer to assist in the monitoring of the patient (more content not included)... PROVATION [facility] Radiology Study observation (narrative) [facility] HISTORY PHYSICALon HISTORY PHYSICAL HNO ID: [id number] Author: ROBERT JOHNSON MD Service: General Surgery Author Type: Physician Type: H&P Filed: 07/24/2023 09:46 Note Text: HISTORY AND PHYSICAL Laquita Choudhury 1975 REFERRING PHYSICIAN: Chris Rosa MD CHIEF COMPLAINT: Consult (colonoscopy) HPI: The patient is a 48 year old female referred for endoscopy. Laquita notes no history of colon complaints. The patient notes no history of upper GI complaints. Laquita has not undergone prior endoscopy. The patient is being seen by me today at the request of Dr. Chris Rosa MD, MD for my opinion and advice regarding Encounter for screening for malignant neoplasm of colon (primary encounter diagnosis) . PAST MEDICAL HISTORY 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 Polycystic ovaries Unspecified asthma(493.90) PAST SURGICAL HISTORY PAST SURGICAL HISTORY Procedure Laterality Date ANKLE ARTHROSCOPY/SURGERY Right ankle APPENDECTOMY 11/20/2004 CYSTECTOMY COMPLETE-SEP PRO ovarian cyst during first DILATION AND CURETTAGE DXAND/THER NONOBSTETRIC x4 TOTAL OVARIAN CYSTECTOMY 1996 REMOVAL GALLBLADDER 02/08/2023 Dr Orozco SLEEVE GASTRECTOMY; OPEN 05/24/2022 Dr Collazo THYROID FINE NEEDLE ASPIRATION Right 08/04/2020 THYROIDECTOMY TOTAL/COMPLETE 08/17/2020 TONSILLECTOMY PRIMARY/SECONDARY Tonsillectomy CURRENT MEDICATIONS Current Outpatient Medications Medication Sig acetaminophen (TYLENOL) 500 mg tablet Take 500 mg by mouth three times a day as needed. ferrous sulfate 325 mg (65 mg iron) tablet Take 325 mg by mouth. Cholecalciferol, Vitamin D3, 50 mcg (2,000 unit) cap Take by mouth. cyanocobalamin, vitamin B-12, (VITAMIN B-12 ORAL) Take by mouth. Cetirizine (ZYRTEC) 10 mg cap Take by mouth. Ascorbic Acid 500 mg chew Take 500 mg by mouth once daily. levothyroxine 100 mcg cap Take 100 mcg by mouth daily before breakfast. albuterol HFA (PROAIR HFA) 90 mcg/actuation inhaler Inhale 2 Puffs as instructed every 4 hours as needed. multivitamin ORAL tablet Take 1 tablet by mouth once daily. DULoxetine (CYMBALTA) 60 mg capsule (Patient not taking: Reported on 06/15/2023) meloxicam (MOBIC) 15 mg tablet Take 15 mg by mouth once daily. No current facility-administered medications for this visit. ALLERGIES: Seasonal Allergies [Other] PERSONAL HISTORY: SOCIAL HISTORY Social History Tobacco Use Smoking status: Never Smokeless tobacco: Never Vaping Use Vaping Use: Never used Substance Use Topics Alcohol use: No Drug use: No FAMILY HISTORY: FAMILY HISTORY FAMILY HISTORY Problem Relation Age of Onset Diabetes Mother Cancer Maternal Grandmother lung Diabetes Maternal Grandmother Diabetes Paternal Grandfather other (Crohn's Disease) Sister REVIEW OF SYMPTOMS: The review of systems data was entered by the nurse and reviewed by pa Nursing Notes: Mamta Hendrix RN 06/15/2023 3:39 PM Signed REVIEW OF SYSTEMS: General: The patient denies fatigue, denies weight loss, denies weight gain, denies feeling hot, and denies feelings of cold. Eyes: The patient denies glaucoma, denies eye injury/surgery, does not wear glasses or contacts. Ear/Nose/Throat: The patient denies allergies, denies hayfever, denies ear infections, and denies bloody noses. Cardiovascular: The patient denies chest pain, denies heart disease, denies high blood pressure,denies cardiac stent, denies prior heart attack, denies irregular heart beat, denies high cholesterol, denies poor circulation, denies heart failure, other cardiac issues, denies claudication, denies cold feet, denies peripheral arterial stent. Respiratory: The patient denies tuberculosis, denies pneumonia, denies frequent cough, denies pulmonary embolism, NOTES shortness of breath, and denies coughing up blood. Gastrointestinal: The patient denies difficulty swallowing, denies acid reflux, denies ulcers, denies vomiting, denies jaundice/hepatitis, NOTES gallbladder problems, denies black or tarry stools, denies hemorrhoids, denies bleeding from rectum, denies diverticulitis, denies constipation, denies diarrhea, denies loss of stool control, and denies hernias. Kidney/Bladder: The patient denies kidney stones, denies urine infections, and denies bloody urine. Skin: The patient denies a history of skin cancer, denies bleeding/changing moles, and denies a history of skin rash. Neurologic: The patient denies a history of epilepsy/convulsions, denies headaches, denies head/spinal injuries, and denies stroke/TIA. Psychiatric: The patient denies psychiatric medications, denies depression, and denies voices, denies substance abuse. Endocrine: The patient NOTES thyroid disorders, denies diabetes, and denies hormonal problems. Hematologic: The patient denies a history of bruising, denies bleedin (more content not included)... [facility] NURSING PROGon 07-24-2023 NURSING PROG HNO ID: [id number] Author: NERY HAND RN Service: ? Author Type: Registered Nurse Type: Nursing Progress Note Filed: 07/24/2023 11:09 Note Text: Arrived in phase II via cart. Left lateral position. Sedated, but responds to verbal stimuli. Color normal; skin warm and dry. Respirations wnl and unlabored. Abdomen soft and with + bowel sounds in quads X 4. Patient resting comfortably. Family at bedside. Dr. Johnson at bedside to review procedure and recommendations. Nery Hand RN [facility] 36on 06-21-2023 36 Noted, thanks. [facility] 36 Records received and to CELLAR WORKER for review. [facility] 36 Records request faxe d and confirmation obtained. [facility] 36 ----- Message from LISSET Lindsay CNP sent at 06/21/2023 10:07 AM EDT ----- Please obtain a copy of lap rose and ercp done at [facility] last year. [facility] Office Visiton 06-21-2023 Follow-up visit [id number] Laquita Choudhury 1975 F Date Provider Department Center 06/21/2023 [id number] COLLAZO BCC SURG None Family History Problem Relation Age of Onset Obesity Mother Diabetes Mother Diabetes type II Mother Cancer Maternal Grandmother Family Status - Relation Status Age at Mother Maternal Grandmother Level of Service:60794 [place] OFFICE/OUTPATIENT ESTABLISHED LOW MDM 20 MIN Reason for Visit and Comments: Bariatrics Post Op Follow-up [884] - 12M Normal [facility] Progress Noteon 06-21-2023 Progress Note JARROD COLLAZO MD , F [facility] [place] MINIMALLY INVASIVE & METABOLIC / BARIATRIC SURGERY [facility] - 12 MONTH FOLLOW UP 06/21/2023 PATIENT: Laquita Choudhury DATE OF : 1975 HISTORY OF PRESENT ILLNESS Chief Complaint: 12 month follow-up status post SLEEVE GASTRECTOMY - aka SG Laquita Choudhury is a 48 y.o. female who presents to the bariatric care center today for their 12 month evaluation following bariatric surgery with Dr. Collazo. The total weight lost is 62 pounds for a 46 % EWL. Overall, the patient is satisfied with the weight loss and health benefits related to the bariatric intervention. Dietary compliance concerns: No Exercise and activity concerns: No Compliance and phychologic concerns: No Dysphagia and eating concerns: No Excessive skin concerns: No The patient is feeling well and denies any major complaints or GI symptoms. The dietary regimen and exercise activities are going well. The patient is compliant with protein intake and vitamin/trace element supplementation. Labs were Completed Laboratory results were GLUCOSE 111, HDL 71 , LDL 108. Review of Symptoms Constitutional: negative for chills, fevers, night sweats, and weight loss Eyes: negative Ears, nose, mouth, throat, and face: negative Respiratory: negative for cough, dyspnea on exertion, hemoptysis, and sputum Cardiovascular: negative for chest pain, chest pressure/discomfort, dyspnea, irregular heart beat, palpitations, and syncope Integument/breasts: negative for dry skin and rash Gastrointestinal: negative for abdominal pain, constipation, diarrhea, dysphagia, melena, reflux symptoms, and vomiting Genitourinary:negative for dysuria, hematuria, and urinary incontinence Musculoskeletal:negative for back pain and myalgias Neurological: negative for dizziness, paresthesia, seizures, and weakness Behavioral/Psych: negative for anxiety, irritability, and sleep disturbance Hematologic/lymphatic: negative for bleeding, easy bruising, lymphadenopathy, and petechiae Endocrine: negative for temperature intolerance Allergic/Immunologic: negative for anaphylaxis and hay fever PAST HISTORIES Past Medical History: Diagnosis Date Asthma Cancer (CMS/HCC) ([facility]) June 2020 COVID-19 vaccine series completed 02/03/2021 Hx of thyroid cancer Joint pain, hip Joint pain, knee Morbid obesity due to excess calories ([facility]) 09/28/2021 Muscle weakness Postoperative hypothyroidism Pre-diabetes Seasonal allergies SOB (shortness of breath) on exertion Past Surgical History: Procedure Laterality Date ANKLE FRACTURE SURGERY 1993 [place] APPENDECTOMY 2002 Edwin DILATION AND CURETTAGE OF UTERUS [id number] X4 ERCP 05/09/2022 stent removal LAP,CHOLECYSTECTOMY (HISTORICAL) N/A 02/08/2023 DR.Bortz Pineda OVARIAN CYST REMOVAL Jamar SLEEVE GASTRECTOMY, LAPAROSCOPIC (HISTORICAL) 05/24/2022 Lap sleeve gastrectomy with liver wedge biopsy THYROIDECTOMY Bilateral 2020 Dr. Elizabeth Pineda TONSILLECTOMY (HISTORICAL) 1980 [place] Family History Problem Relation Name Age of Onset Obesity Mother Jadeice Diabetes Mother Jadeice Diabetes type II Mother Derice Cancer Maternal Grandmother Laquita No Known Allergies PHYSICAL EXAM BP 121/81 Pulse 79 Temp 36.6 ?C (97.8 ?F) Resp 16 Ht 5' 1 (1.549 m) Comment: [facility] Wt 178 lb 6.4 oz (80.9 kg) Comment: [facility] BMI 33.71 kg/m? General: This patient is awake, alert, and oriented, with normal affect and is in no apparent distress. Cardiac: Regular rate and rhythm without evidence of murmur. Respiratory: Clear to auscultation bilaterally with normal effort. Abdomen: Obese, soft, non-tender, non-distended without masses/ No evidence of abdominal hernia / Incisions consistent with previous surgeries. Head and Neck: Obese, normocephalic and atraumatic/soft and supple, no lymphadenopathy or obvious bruits. No thyroidmegaly. Extremities: No cyanosis, clubbing or edema/ No calf tenderness/No restrictions of movement, is ambulatory without assistance. Neurological: Intact x 4 extremities, normal sensation, no focal deficits notes. Skin: Skin cool, warm and dry. No rashes or lesions noted. Rectal: Deferred LABORATORY STUDIES AND IMAGING Laboratory Studies: No results for input(s): NA, K, CL, CO2, BUN, CREATININE, GLUCOSE, CALCIUM in the last 72 hours. No results for input(s): WBC, RBC, HGB, HCT, MCV, MCH, MCHC, RDW, PLT, MPV in the last 72 hours. No results for input(s): ALKPHOS, ALT, AST, PROT, BILITOT, BILIDIR, LIPASE in the last 72 hours. No lab exists for component: LABALBU ASSESSMENT 12 months status post SLEEVE GASTRECTOMY - aka SG Visit Diagnoses: 1. Hypothyroidism, unspecified type 2. Deficiency of multiple nutrient elements 3. Pre-diabetes 4. Class 1 obesity (more content not included)... Normal [facility] Progress Note [facility] [place] > 6 MONTH POST-OPERATIVE DIETITIAN VISIT Date: 06/21/23 Patient's weight decreased by: 62.6 lbs Patient consumes 5-6 small meals daily -Yes Patient?s portions are adequate for current diet: ?-1 cup Protein requirements discussed- currently consuming 65+ grams protein daily. Current protein sources: taking in great protein items Recommendations: Fluid requirements discussed. Current Fluid Intake: 50 oz Patient drinks sugar-free, caffeine-free and carbonation-free fluids only. Patient waits 30 minutes before and after meals to drink Exercise activities discussed. Patient is currently exercise. She was reminded that regular exercise is critical part of a successful outcome following weight loss surgery. Behavioral/Emotional changes reviewed. Patient does feel comfortable with changes in eating behaviors and associated emotional changes. She was reminded that psychological counseling is available through the Bariatric Care Center post-operatively. Recent Nutrient Concerns and Vitamin Supplementation Changes: taking all vitamins and labs wnl Notes/Comments: Pt is doing great overall! Pt to call as needed with any issues or concerns that arise. Visit completed by: Ailyn Ilg, RD [facility] CNPNon 06-16-2023 CNPN Telephone (GENVR1S) LAQUITA CHOUDHURY ([id number]) 1975 F Date Time Provider Department 06/16/23 ROBERT JOHNSON GENVR1S During your visit today, we recorded the following information about you: Mari Camarena 06/16/2023 9:54 AM Signed 07/24/2023 [facility] Allergies As of Date: 06/16/2023 Noted Allergy Reaction SEASONAL ALLERGIES [Other] 10/05/2004 Date Reviewed: 06/15/2023 Reviewed by: Mamta Hendrix, SERGIO - Fully Assessed Reason for Visit: 07/24/2023 [facility] [Other] Prescriptions as of 12/27/2023 - DULoxetine (CYMBALTA) 60 mg capsule - acetaminophen (TYLENOL) 500 mg tablet Take 500 mg by mouth three times a day as needed. - ferrous sulfate 325 mg (65 mg iron) tablet Take 325 mg by mouth. - Cholecalciferol, Vitamin D3, 50 mcg (2,000 unit) cap Take by mouth. - cyanocobalamin, vitamin B-12, (VITAMIN B-12 ORAL) Take by mouth. - Cetirizine (ZYRTEC) 10 mg cap Take by mouth. - Ascorbic Acid 500 mg chew Take 500 mg by mouth once daily. - meloxicam (MOBIC) 15 mg tablet Take 15 mg by mouth once daily. - levothyroxine 100 mcg cap Take 100 mcg by mouth daily before breakfast. - albuterol HFA (PROAIR HFA) 90 mcg/actuation inhaler Inhale 2 Puffs as instructed every 4 hours as needed. - multivitamin ORAL tablet Take 1 tablet by mouth once daily. Problem List As Of Date 06/16/2023 Noted Resolved ASTHMA UNSPECIFIED [J45.909] POLYCYSTIC OVARIES [E28.2] Hyperglycemia [R73.9] Hyperlipidemia [E78.5] Calculus of gallbladder without cholecystitis w*05/02/2022 Diagnosed: 06/15/2023 Deficiency of multiple nutrient elements [E61.7]08/30/2022 Diagnosed: 06/15/2023 Morbid obesity due to excess calories (HCC) [E6*09/28/2021 Diagnosed: 06/15/2023 Morbid obesity with body mass index of 45.0-49.*05/24/2022 Diagnosed: 06/15/2023 Postoperative hypothyroidism [E89.0] 10/06/2021 Diagnosed: 06/15/2023 Pre-diabetes [R73.03] 10/06/2021 Diagnosed: 06/15/2023 Encounter Status:Closed by TAL PAREDES on 12/27/23 [facility] Cal 06-15-2023 CNOV Office Visit (REGINO ) LAQUITA CHOUDHURY ([id number]) 1975 F Date Time Provider Department 06/15/23 3:45 PM ROBERT JOHNSON During your visit today, we recorded the following information about you: Temperature Pulse Blood pressure Weight 97.9 degrees 90/minute 124/78 81.6 kg Height 1.575 m Mamta Hendrix RN 06/15/2023 3:39 PM Signed REVIEW OF SYSTEMS: General: The patient denies fatigue, denies weight loss, denies weight gain, denies feeling hot, and denies feelings of cold. Eyes: The patient denies glaucoma, denies eye injury/surgery, does not wear glasses or contacts. Ear/Nose/Throat: The patient denies allergies, denies hayfever, denies ear infections, and denies bloody noses. Cardiovascular: The patient denies chest pain, denies heart disease, denies high blood pressure,denies cardiac stent, denies prior heart attack, denies irregular heart beat, denies high cholesterol, denies poor circulation, denies heart failure, other cardiac issues, denies claudication, denies cold feet, denies peripheral arterial stent. Respiratory: The patient denies tuberculosis, denies pneumonia, denies frequent cough, denies pulmonary embolism, NOTES shortness of breath, and denies coughing up blood. Gastrointestinal: The patient denies difficulty swallowing, denies acid reflux, denies ulcers, denies vomiting, denies jaundice/hepatitis, NOTES gallbladder problems, denies black or tarry stools, denies hemorrhoids, denies bleeding from rectum, denies diverticulitis, denies constipation, denies diarrhea, denies loss of stool control, and denies hernias. Kidney/Bladder: The patient denies kidney stones, denies urine infections, and denies bloody urine. Skin: The patient denies a history of skin cancer, denies bleeding/changing moles, and denies a history of skin rash. Neurologic: The patient denies a history of epilepsy/convulsions, denies headaches, denies head/spinal injuries, and denies stroke/TIA. Psychiatric: The patient denies psychiatric medications, denies depression, and denies voices, denies substance abuse. Endocrine: The patient NOTES thyroid disorders, denies diabetes, and denies hormonal problems. Hematologic: The patient denies a history of bruising, denies bleeding, and denies anemia, denies blood clots. Infections: The patient denies a history of measles and mumps, denies rheumatic fever, and denies sexually transmitted diseases. Musculoskeletal: The patient denies back pain/injury, denies back problems, denies sciatica, denies knee/foot trouble, denies arthritis, or denies gout. When was patient's last Mammogram screening? 2022 Last Colonoscopy: none Mamta Hendrix, Robert Mahoney MD 06/23/2023 6:39 AM Signed HISTORY AND PHYSICAL Laquita Choudhury 1975 REFERRING PHYSICIAN: Chris Rosa MD CHIEF COMPLAINT: Consult (colonoscopy) HPI: The patient is a 48 year old female referred for endoscopy. Laquita notes no history of colon complaints. The patient notes no history of upper GI complaints. Laquita has not undergone prior endoscopy. The patient is being seen by me today at the request of Dr. Chris Rosa MD, MD for my opinion and advice regarding Encounter for screening for malignant neoplasm of colon (primary encounter diagnosis) . 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 Polycystic ovaries Unspecified asthma(493.90) PAST SURGICAL HISTORY Procedure Laterality Date ANKLE ARTHROSCOPY/SURGERY Right ankle APPENDECTOMY 11/20/2004 CYSTECTOMY COMPLETE-SEP PRO ovarian cyst during first DILATION AND CURETTAGE DXAND/THER NONOBSTETRIC x4 TOTAL OVARIAN CYSTECTOMY 1996 REMOVAL GALLBLADDER 02/08/2023 Dr Orozco SLEEVE GASTRECTOMY; OPEN 05/24/2022 Dr Collazo THYROID FINE NEEDLE ASPIRATION Right 08/04/2020 THYROIDECTOMY TOTAL/COMPLETE 08/17/2020 TONSILLECTOMY PRIMARY/SECONDARY Tonsillectomy Current Outpatient Medications Medication Sig acetaminophen (TYLENOL) 500 mg tablet Take 500 mg by mouth three times a day as needed. ferrous sulfate 325 mg (65 mg iron) tablet Take 325 mg by mouth. Cholecalciferol, Vitamin D3, 50 mcg (2,000 unit) cap Take by mouth. cyanocobalamin, vitamin B-12, (VITAMIN B-12 ORAL) Take by mouth. Cetirizine (ZYRTEC) 10 mg cap Take by mouth. Ascorbic Acid 500 mg chew Take 500 mg by mouth once daily. levothyroxine 100 mcg cap Take 100 mcg by mouth daily before breakfast. albuterol HFA (PROAIR HFA) 90 mcg/actuation inhaler Inhale 2 Puffs as instructed every 4 hours as needed. multivitamin ORAL tablet Take 1 tablet by mouth once daily. DULoxetine (CYMBALTA) 60 mg capsule (Patient not taking: Reported on 06/15/2023) meloxicam (MOBIC) 15 mg tablet Take 15 mg by mouth once daily. No (more content not included)... Normal [facility] CBC (HEMOGRAM)on 06-14-2023 Erythrocyte distribution width (RBC) [Ratio] 12.2 % Normal 11.5-15.0 [facility] Comment on above: Order Comment: These orders are set for an approximate date - they can be drawn up to 3 months prior to the Expected Date on this Req.Please send results to: Chris Rosa MD - [address] [facility] [address] [address] - [phone] if not done at a [facility], please send to:[address], [address]Unjdj: [phone] Vfrhlyp Name: Laquita Choudhury - 1975Order Created by : Osmel Rodriguez MA Performed By: #### L [id number] ####Cinetechnician: EMERSON LIMON ([id number])[facility] (SWRLAB)[address] [place] [address] Hematocrit (Bld) [Volume fraction] 36.3 % Normal 35.0-47.0 [facility] Comment on above: Order Comment: These orders are set for an approximate date - they can be drawn up to 3 months prior to the Expected Date on this Req.Please send results to: Chris Rosa MD - [address] [facility] [address] - [phone] if not done at a [facility], please send to:[address], [address]Adbxl: [phone] Lbdsadv Name: Laquita Choudhury - 1975Order Created by : Osmel Rodriguez MA Performed By: #### L [id number] ####Cinetechnician: EMERSON LIMON ([id number])[facility] (SWRLAB)[address] [place] [address] Hemoglobin (Bld) [Mass/Vol] 12.0 g/dL Normal 11.7-16.0 [facility] Comment on above: Order Comment: These orders are set for an approximate date - they can be drawn up to 3 months prior to the Expected Date on this Req.Please send results to: Chris Rosa MD - [address] [facility] [address] [address] - [phone] if not done at a [facility], please send to:[address], [address]Aczvh: [phone] Fkhimig Name: Laquita Coats 1975Order Created by : Osmel Rodriguez MA Performed By: #### L [id number] ####Cinetechnician: EMERSON LIMON ([id number])[facility] (SWRLAB)[address] [place] [address] MCH (RBC) [Entitic mass] 30.5 pg Normal 26.0-34.0 [facility] Comment on above: Order Comment: These orders are set for an approximate date - they can be drawn up to 3 months prior to the Expected Date on this Req.Please send results to: Chris Rosa MD - [address] [facility] [address] [phone] - [phone] if not done at a [facility], please send to:[address], [address]Qgszc: [phone] Sspgnyy Name: Laquita Coats 1975Order Created by : Osmel Rodriguez MA Performed By: #### L [id number] ####Cinetechnician: EMERSON LIMON ([id number])[facility] (SWRL[facility])[address] [place] [address] MCHC 33.1 % Normal 30.5-36.0 [facility] Comment on above: Order Comment: These orders are set for an approximate date - they can be drawn up to 3 months prior to the Expected Date on this Req.Please send results to: Chris Rosa MD - [address] [facility] [address] [phone] - [phone] if not done at a [facility], please send to:[address], [address], [address]Jrewf: [phone] Evqbizp Name: Laquita Coats 1975Order Created by : Osmel Rodriguez MA Performed By: #### L [id number] ####Cinetechnician: EMERSON LIMON ([id number])[facility] (SWRLAB)[address] [place] [address] MCV (RBC) [Entitic vol] 92.1 fL Normal 77.0-99.0 [facility] Comment on above: Order Comment: These orders are set for an approximate date - they can be drawn up to 3 months prior to the Expected Date on this Req.Please send results to: Chris Rosa MD - [address] [facility] [address] [phone] - [phone] if not done at a [facility], please send to:[address] [address]Uulwr: [phone] Vfmtvgi Name: Laquita Choudhury 1975Order Created by : Osmel Rodriguez MA Performed By: #### L [id number] ####Cinetechnician: EMERSON LIMON ([id number])[facility] (SWRLAB)[address] [place] [address] Platelet mean volume (Bld) [Entitic vol] 11.8 fL Normal 9.0-12.7 [facility] Comment on above: Order Comment: These orders are set for an approximate date - they can be drawn up to 3 months prior to the Expected Date on this Req.Please send results to: Chris Rosa MD - [address] [facility] 105[facility] [phone] - [phone] if not done at a [facility], please send to:[address], [address]Kzadd: [phone] Ejjascn Name: Laquita Coats 1975Order Created by : Osmel Rodriguez MA Result Comment: MPV is a calculated measurement using platelet volume ratio Performed By: #### L AB294 ####Cinetechnician: EMERSON LIMON ([id number])[facility] [place] [facility] ([facility])[address] [place] [address] [place] Platelets (Bld) [#/Vol] 200 10*3/uL Normal 140-440 [facility] Comment on above: Order Comment: These orders are set for an approximate date - they can be drawn up to 3 months prior to the Expected Date on this Req.Please send results to: Chris Rosa MD - [address] [address] - [phone] if not done at a [facility], please send to:[address] [address]Mzlvv: [phone] Zndsprp Name: Laquita Choudhury 1975Order Created by : Osmel Rodriguez MA Performed By: #### L AB294 ####Cinetechnician: EMERSON LIMON ([id number])[facility] [place] (SWRL[place])[address] [place] [address] [place] RBC (Bld) [#/Vol] 3.94 10*6/uL Normal 3.80-5.20 [facility] Comment on above: Order Comment: These orders are set for an approximate date - they can be drawn up to 3 months prior to the Expected Date on this Req.Please send results to: Chris Rosa MD - [address] [address] - [phone] if not done at a [facility], please send to:[address], [address], [address]Weyuz: [phone] Esikpnt Name: Laquita Coats 1975Order Created by : Osmel Rodriguez MA Performed By: #### L AB294 ####Cinetechnician: EMERSON LIMON ([id number])[facility] [place] [facility] ([facility])[address] WBC (Bld) [#/Vol] 5.0 10*3/uL Normal 3.6-10.7 [facility] Comment on above: Order Comment: These orders are set for an approximate date - they can be drawn up to 3 months prior to the Expected Date on this Req.Please send results to: Chirs Rosa MD - [address] [facility] 105[facility] [address] - [phone] if not done at a [facility], please send to:[facility] [place] - [address] [place] [address], [address] [facility], [address]Imoom: [phone] Vgolygf Name: Laquita Choudhury - 1975Order Created by : Osmel Rodriguez MA Performed By: #### L AB294 ####Cinetechnician: EMERSON LIMON ([id number])[facility] ([facility])[address] CBC panel Auto (Bld)Ordered By: Cherelle Ha on 06-14-2023 Erythrocyte distribution width (RBC) [Ratio] 12.2 % 11.5 - 15.0 % [facility] Hematocrit (Bld) [Volume fraction] 36.3 % 35.0 - 47.0 % [facility] Hemoglobin (Bld) [Mass/Vol] 12.0 g/dL 11.7 - 16.0 g/dL [facility] Interpretation and review of laboratory results Normal [facility] MCH (RBC) [Entitic mass] 30.5 pg 26.0 - 34.0 pg [facility] MCHC (RBC) [Mass/Vol] 33.1 % 30.5 - 36.0 % [facility] MCV (RBC) [Entitic vol] 92.1 fL 77.0 - 99.0 fL [facility] Platelet mean volume (Bld) [Entitic vol] 11.8 fL 9.0 - 12.7 fL [facility] Comment on above: MPV is a calculated measurement using platelet volume ratio Platelets (Bld) [#/Vol] 200 10*3/uL 140 - 440 10*3/uL [facility] RBC (Bld) [#/Vol] 3.94 10*6/uL 3.80 - 5.20 10*6/uL [facility] WBC (Bld) [#/Vol] 5.0 10*3/uL 3.6 - 10.7 10*3/uL [facility] COMPREHENSIVE METABOLIC PANE Reginald 06-14-2023 Albumin [Mass/Vol] 4.0 g/dL Normal 3.5-5.0 [facility] Comment on above: Order Comment: These orders are set for an approximate date - they can be drawn up to 3 months prior to the Expected Date on this Req.Please send results to: Chris Rosa MD - [address] [facility] 105[facility] [phone] - [phone] if not done at a [facility], please send to:[address], [address]Ijsrf: [phone] Orvvcae Name: Laquita Coats 1975Order Created by : Osmel Rodriguez MA Performed By: #### L AB17, LAB18, LAB67, FGR667, LAB94, LAB68, LAB69 ####Cinetechnician: EMERSON LIMON ([id number])[facility] ([facility])[address] [place] [address] ALP [Catalytic activity/Vol] 55 U/L Normal 38-126 [facility] Comment on above: Order Comment: These orders are set for an approximate date - they can be drawn up to 3 months prior to the Expected Date on this Req.Please send results to: Chris Rosa MD - [address] [facility] 105[facility] [phone] - [phone] if not done at a [facility], please send to:[address], [address], [address]Lvjhi: [phone] Tcwguzu Name: Laquita Choudhury 1975Order Created by : Osmel Rodriguez MA Performed By: #### L AB17, LAB18, LAB67, SZX560, LAB94, LAB68, LAB69 ####Cinetechnician: EMERSON LIMON ([id number])[facility] (SW[facility])[address] [place] [address] ALT [Catalytic activity/Vol] 18 U/L Normal 0-34 [facility] Comment on above: Order Comment: These orders are set for an approximate date - they can be drawn up to 3 months prior to the Expected Date on this Req.Please send results to: Chris Rosa MD - [address] [facility] 105[facility] [phone] - [phone] if not done at a [facility], please send to:[address] [address]Tvdhs: [phone] Hkgaloi Name: Laquita Choudhury 1975Order Created by : Osmel Rodriguez MA Performed By: #### L AB17, LAB18, LAB67, THQ289, LAB94, LAB68, LAB69 ####Cinetechnician: EMERSON LIMON ([id number])[facility] ([facility])[address] [place] [address] Anion gap [Moles/Vol] 5 mmol/L Normal 3-13 [facility] Comment on above: Order Comment: These orders are set for an approximate date - they can be drawn up to 3 months prior to the Expected Date on this Req.Please send results to: Chris Rosa MD - [address] [facility] 105[facility] [phone] - [phone] if not done at a [facility], please send to:[address], [address]Wiryc: [phone] Whqirwb Name: Laquita Choudhury 1975Order Created by : Osmel Rodriguez MA Performed By: #### L AB17, LAB18, LAB67, ISS084, LAB94, LAB68, LAB69 ####Cinetechnician: EMERSON LIMON ([id number])[facility] ([facility])[address] [place] [address] AST [Catalytic activity/Vol] 30 U/L Normal 15-46 [facility] Comment on above: Order Comment: These orders are set for an approximate date - they can be drawn up to 3 months prior to the Expected Date on this Req.Please send results to: Chris Rosa MD - [address] [facility] 105[facility] [address] - [phone] if not done at a [facility], please send to:[facility] - [address] [place] [address], [address]Gklle: [phone] Atpethr Name: Laquita Choudhury 1975Order Created by : Osmel Rodriguez MA Performed By: #### L AB17, LAB18, LAB67, EZJ172, LAB94, LAB68, LAB69 ####Cinetechnician: EMERSON LIMON ([id number])[facility] ([facility])[address] [place] [address] Bilirubin [Mass/Vol] 0.1 mg/dL Low 0.2-1.3 [facility] Comment on above: Order Comment: These orders are set for an approximate date - they can be drawn up to 3 months prior to the Expected Date on this Req.Please send results to: Chris Rosa MD - [address] [facility] 105[facility] [address] - [phone] if not done at a [facility], please send to:[address], [address]Ghjuv: [phone] Yobgnyi Name: Laquita Choudhury 1975Order Created by : Osmel Rodriguez MA Performed By: #### L AB17, LAB18, LAB67, GQU668, LAB94, LAB68, LAB69 ####Cinetechnician: EMERSON LIMON ([id number])[facility] ([facility])[address] [place] [address] Calcium [Mass/Vol] 8.9 mg/dL Normal 8.4-10.4 [facility] Comment on above: Order Comment: These orders are set for an approximate date - they can be drawn up to 3 months prior to the Expected Date on this Req.Please send results to: Chris Rosa MD - [address] [address] - [phone] if not done at a [facility], please send to:[address], [address]Tujia: [phone] Suiaoow Name: Laquita Choudhury 1975Order Created by : Osmel Rodriguez MA Performed By: #### L AB17, LAB18, LAB67, KWU429, LAB94, LAB68, LAB69 ####Cinetechnician: EMERSON LIMON ([id number])[facility] ([facility])[address] [place] [address] Chloride [Moles/Vol] 107 mmol/L Normal 98-107 [facility] Comment on above: Order Comment: These orders are set for an approximate date - they can be drawn up to 3 months prior to the Expected Date on this Req.Please send results to: Chris Rosa MD - [address] [facility] 105[facility] [address] - [phone] if not done at a [facility], please send to:[address], [address]Sfdvd: [phone] Cofgsty Name: Laquita Choudhury 1975Order Created by : Osmel Rodriguez MA Performed By: #### L AB17, LAB18, LAB67, BIJ600, LAB94, LAB68, LAB69 ####Cinetechnician: EMERSON LIMON ([id number])[facility] ([facility])[address] [place] [address] CO2 [Moles/Vol] 26 mmol/L Normal 22-30 [facility] Comment on above: Order Comment: These orders are set for an approximate date - they can be drawn up to 3 months prior to the Expected Date on this Req.Please send results to: Chris Rosa MD - [address] [address] - [phone] if not done at a [facility], please send to:[facility] - [address] [place] [address], [address]Yfwga: [phone] Zwjaoru Name: Laquita Coats 1975Order Created by : Osmel Rodriguez MA Performed By: #### L AB17, LAB18, LAB67, BMQ660, LAB94, LAB68, LAB69 ####Cinetechnician: EMERSON LIMON ([id number])[facility] ([facility])[address] [place] [address] Creatinine [Mass/Vol] 0.70 mg/dL Normal 0.52-1.04 [facility] Comment on above: Order Comment: These orders are set for an approximate date - they can be drawn up to 3 months prior to the Expected Date on this Req.Please send results to: Chris Rosa MD - [address] [facility] 105[facility] [address] - [phone] if not done at a [facility], please send to:[address], [address], [address]Bvpdw: [phone] Uchsihd Name: Laquita Coats 1975Order Created by : Osmel Rodriguez MA Performed By: #### L AB17, LAB18, LAB67, EHX427, LAB94, LAB68, LAB69 ####Cinetechnician: EMERSON LIMON ([id number])[facility] ([facility])[address] [place] [address] GLOMERULAR FILTRATION RATE ML/MIN/1.73 SQ M.PREDICTED >90.0 Normal >60.0 [facility] Comment on above: Order Comment: These orders are set for an approximate date - they can be drawn up to 3 months prior to the Expected Date on this Req.Please send results to: Chris Rosa MD - [address] [address] - [phone] if not done at a [facility], please send to:[address], [address]Aqvzy: [phone] Jcjxmsn Name: Laquita Choudhury 1975Order Created by : Osmel Rodriguez MA Result Comment: Calc ulation based on the Chronic Kidney Disease Epidemiology Collaboration (CKD-EPI) equation refit without adjustment for race Performed By: #### L AB17, LAB18, LAB67, TLD767, LAB94, LAB68, LAB69 ####Cinetechnician: EMERSON LIMON ([id number])[facility] ([facility])[address] [place] [address] Glucose [Mass/Vol] 111 mg/dL High 70-100 [facility] Comment on above: Order Comment: These orders are set for an approximate date - they can be drawn up to 3 months prior to the Expected Date on this Req.Please send results to: Chris Rosa MD - [address] [facility] 105[facility] [address] - [phone] if not done at a [facility], please send to:[address], [address]Xrdga: [phone] Hhggzpp Name: Laquita Choudhury 1975Order Created by : Osmel Rodriguez MA Performed By: #### L AB17, LAB18, LAB67, WQL723, LAB94, LAB68, LAB69 ####Cinetechnician: EMERSON LIMON ([id number])[facility] ([facility])[address] [place] [address] Potassium [Moles/Vol] 4.1 mmol/L Normal 3.5-5.1 [facility] Comment on above: Order Comment: These orders are set for an approximate date - they can be drawn up to 3 months prior to the Expected Date on this Req.Please send results to: Chris Rosa MD - [address] [facility] 105[facility] [address] - [phone] if not done at a [facility], please send to:[facility] - [address] [place] [address], [address]Jfpny: [phone] Eafwgoa Name: Laquita Choudhury 1975Order Created by : Osmel Rodriguez MA Performed By: #### L AB17, LAB18, LAB67, RKI021, LAB94, LAB68, LAB69 ####Cinetechnician: EMERSON LIMON ([id number])[facility] ([facility])[address] [place] [address] Protein [Mass/Vol] 6.6 g/dL Normal 6.3-8.2 [facility] Comment on above: Order Comment: These orders are set for an approximate date - they can be drawn up to 3 months prior to the Expected Date on this Req.Please send results to: Chris Rosa MD - [address] [facility] 105[facility] [address] - [phone] if not done at a [facility], please send to:[address], [address]Nszyu: [phone] Nibpvpx Name: Laquita Choudhury 1975Order Created by : Osmel Rodriguez MA Performed By: #### L AB17, LAB18, LAB67, QWO445, LAB94, LAB68, LAB69 ####Cinetechnician: EMERSON LIMON ([id number])[facility] ([facility])[address] Sodium [Moles/Vol] 139 mmol/L Normal 135-145 [facility] Comment on above: Order Comment: These orders are set for an approximate date - they can be drawn up to 3 months prior to the Expected Date on this Req.Please send results to: Chris Rosa MD - [address] [id number] - [phone] if not done at a [facility], please send to:[address], [address]Ebyat: [phone] Blrezsx Name: Laquita Choudhury 1975Order Created by : Osmel Rodriguez MA Performed By: #### L AB17, LAB18, LAB67, GTK514, LAB94, LAB68, LAB69 ####Cinetechnician: EMERSON LIMON ([id number])[facility] ([facility])[address] [place] [address] Urea nitrogen [Mass/Vol] 27 mg/dL High 7-17 [facility] Comment on above: Order Comment: These orders are set for an approximate date - they can be drawn up to 3 months prior to the Expected Date on this Req.Please send results to: Chris Rosa MD - [address] [id number] - [phone] if not done at a [facility], please send to:[address], [address], [address]Cnsgd: [phone] Rmgniza Name: Laquita Choudhury 1975Order Created by : Oseml Rodriguez MA Performed By: #### L AB17, LAB18, LAB67, MZX220, LAB94, LAB68, LAB69 ####Cinetechnician: EMERSON LIMON ([id number])[facility] ([facility])[address] [place] [address] Cobalamin (Vitamin B12) [Mas s/Vol]on 06-14-2023 Interpretation and review of laboratory results Abnormal [facility] Comprehensive metabolic 1998 panelon 06-14-2023 Albumin [Mass/Vol] 4.0 g/dL 3.5 - 5.0 g/dL [facility] ALP [Catalytic activity/Vol] 55 U/L 38 - 126 U/L [facility] ALT [Catalytic activity/Vol] 18 U/L 0 - 34 U/L [facility] Anion gap [Moles/Vol] 5 mmol/L 3 - 13 mmol/L [facility] AST [Catalytic activity/Vol] 30 U/L 15 - 46 U/L [facility] Bilirubin [Mass/Vol] 0.1 mg/dL Low 0.2 - 1 .3 mg/dL [facility] Calcium [Mass/Vol] 8.9 mg/dL 8.4 - 10. 4 mg/dL [facility] Chloride [Moles/Vol] 107 mmol/L 98 - 10 7 mmol/L [facility] CO2 [Moles/Vol] 26 mmol/L 22 - 30 mmol/L [facility] Creatinine [Mass/Vol] 0.70 mg/dL 0.52 - 1.04 mg/dL [facility] GFR/1.73 sq M.predicted MDRD (S/P/Bld) [Vol rate/Area] - PINF [facility] Comment on above: Calculation based on the Chronic Kidney Disease Epidemiology Collaboration (CKD-EPI) equation refit without adjustment for race Glucose [Mass/Vol] 111 mg/dL High 70 - 100 mg/dL [facility] Potassium [Moles/Vol] 4.1 mmol/L 3.5 - 5.1 mmol/L [facility] Protein [Mass/Vol] 6.6 g/dL 6.3 - 8.2 g/dL [facility] Sodium [Moles/Vol] 139 mmol/L 135 - 145 mmol/L [facility] Urea nitrogen [Mass/Vol] 27 mg/dL High 7 - 17 mg/dL [facility] FERRITINon 06-14-2023 Ferritin [Mass/Vol] 10 ng/mL Normal 6-137 [facility] Comment on above: Order Comment: These orders are set for an approximate date - they can be drawn up to 3 months prior to the Expected Date on this Req.Please send results to: Chris Rosa MD - [address] [facility] 105[facility] [address] - [phone] if not done at a [facility], please send to:[facility] - [address] [place] [address], [address], [address]Gdopp: [phone] Nhnvjvb Name: Laquita Choudhury - 1975Order Created by : Osmel Rodriguez MA Performed By: #### L AB17, LAB18, LAB67, XPQ235, LAB94, LAB68, LAB69 ####Cinetechnician: EMERSON LIMON ([id number])[facility])[address] [place] [address] FOLATEon 06-14-2023 FOLATE RESULT 13.1 ng/mL Normal >=2.9 [facility] Comment on above: Order Comment: These orders are set for an approximate date - they can be drawn up to 3 months prior to the Expected Date on this Req.Please send results to: Chris Rosa MD - [address] [facility] 105[facility] [address] - [phone] if not done at a [facility], please send to:[facility] - [address] [place] [address], [address], [address]Xnioj: [phone] Kfhggte Name: Laquita Choudhury - 1975Order Created by : Osmel Rodriguez MA Performed By: #### L AB17, LAB18, LAB67, XQP982, LAB94, LAB68, LAB69 ####Cinetechnician: EMERSON LIMON ([id number])[facility] ([facility])[address] [place] [address] Ferritinon 06-14-2023 Ferritin [Mass/Vol] 10 ng/mL 6 - 137 ng/mL [facility] Ferritin [Mass/Vol]on 2023 Interpretation and review of laboratory results Normal [facility] Folateon 06-14-2023 Folate [Mass/Vol] 13.1 ng/mL 2.9 - PINF ng/mL [facility] Folate [Mass/Vol]on 06-14-19 Interpretation and review of laboratory results Normal [facility] IRONon 06-14-2023 IRON, TOTAL 44 ug/dL Normal 37-170 [facility] Comment on above: Order Comment: These orders are set for an approximate date - they can be drawn up to 3 months prior to the Expected Date on this Req.Please send results to: Chris Rosa MD - [address] [facility] 105[facility] [address] - [phone] if not done at a [facility], please send to:[address], [address]Vjdti: [phone] Ufaufby Name: Laquita Choudhury - 1975Order Created by : Osmel Rodriguez MA Performed By: #### L AB17, LAB18, LAB67, EZF300, LAB94, LAB68, LAB69 ####Cinetechnician: EMERSON LIMON ([id number])[facility] ([address] [employer] and [employer] binding capaci ty panelon 06-14-2023 Iron [Mass/Vol] 44 ug/dL 37 - 170 ug/dL [facility] LIPID PANELon 06-14-2023 Cholesterol [Mass/Vol] 201 mg/dL High <200 [facility] Comment on above: Order Comment: These orders are set for an approximate date - they can be drawn up to 3 months prior to the Expected Date on this Req.Please send results to: Chris Rosa MD - [address] [facility] 105[facility] [address] - [phone] if not done at a [facility], please send to:[address], [address], [address]Pasnb: [phone] Fjqlgza Name: Laquita Choudhury - 1975Order Created by : Osmel Rodriguez MA Performed By: #### L AB17, LAB18, LAB67, PSY138, LAB94, LAB68, LAB69 ####Cinetechnician: EMERSON LIMON ([id number])[facility] ([facility])[address] [place] [address] Cholesterol in HDL [Mass/Vol] 71 mg/dL High 40-60 [facility] Comment on above: Order Comment: These orders are set for an approximate date - they can be drawn up to 3 months prior to the Expected Date on this Req.Please send results to: Chris Rosa MD - [address] [address] - [phone] if not done at a [facility], please send to:[address], [address]Spwcu: [phone] Jvidryj Name: Laquita Choudhury - 1975Order Created by : Osmel Rodriguez MA Performed By: #### L AB17, LAB18, LAB67, KZQ145, LAB94, LAB68, LAB69 ####Cinetechnician: EMERSON LIMON ([id number])[facility] ([facility])[address] [place] [address] Cholesterol.total/Chol esterol in HDL [Mass ratio] 3 {ratio} Normal [facility] Comment on above: Order Comment: These orders are set for an approximate date - they can be drawn up to 3 months prior to the Expected Date on this Req.Please send results to: Chris Rosa MD - [address] [facility] 105[facility] [address] - [phone] if not done at a [facility], please send to:[address], [address]Ahvae: [phone] Otbevss Name: Laquita Choudhury - 1975Order Created by : Osmel Rodriguez MA Result Comment: Ref Range: < 3 Low Risk for CHD 3-6 Mod Risk for CHD > 6 High Risk for CHD Performed By: #### L AB17, LAB18, LAB67, BVH735, LAB94, LAB68, LAB69 ####Cinetechnician: EMERSON LIMON ([id number])[facility] ([facility])[address] [place] [address] LOW DENSITY LIPOPROTEIN 108 mg/dL High 0-<100 [facility] Comment on above: Order Comment: These orders are set for an approximate date - they can be drawn up to 3 months prior to the Expected Date on this Req.Please send results to: Chris Rosa MD - [address] [address] - [phone] if not done at a [facility], please send to:[address] [address]Qixwu: [phone] Yemvjtr Name: Laquita Choudhury - 1975Order Created by : Osmel Rodriguez MA Performed By: #### L AB17, LAB18, LAB67, XHC046, LAB94, LAB68, LAB69 ####Cinetechnician: EMERSON LIMON ([id number])[facility] ([facility])[address] [place] [address] Triglyceride [Mass/Vol] 109 mg/dL Normal <150 [facility] [facility] Comment on above: Order Comment: These orders are set for an approximate date - they can be drawn up to 3 months prior to the Expected Date on this Req.Please send results to: Chris Rosa MD - [address] [facility] 105[facility] [id number] - [phone] if not done at a [facility], please send to:[address], [address]Ftfnd: [phone] Vmkbjnw Name: Laquita Choudhury - 1975Order Created by : Osmel Rodriguez MA Performed By: #### L AB17, LAB18, LAB67, [id number], LAB94, LAB68, LAB69 ####Cinetechnician: EMERSON LIMON ([id number])[facility] ([facility])[address] [place] [address] Lipid 1996 panelon Cholesterol [Mass/Vol] 201 mg/dL High NINF - 200 mg/dL [facility] Cholesterol in HDL [Mass/Vol] 71 mg/dL High 40 - 60 mg/dL [facility] Cholesterol in LDL [Mass/Vol] 108 mg/dL High 0 - <100 [facility] Cholesterol.total/Chol esterol in HDL [Mass ratio] 3 {ratio} [facility] Comment on above: Ref Range: < 3 Low Risk for CHD 3-6 Mod Risk for CHD > 6 High Risk for CHD Triglyceride [Mass/Vol] 109 mg/dL NINF - 150 mg/dL [facility] MAGNESIUMon 06-14-2023 Magnesium [Mass/Vol] 2.0 mg/dL Normal 1.6-2.3 [facility] Comment on above: Order Comment: These orders are set for an approximate date - they can be drawn up to 3 months prior to the Expected Date on this Req.Please send results to: Chris Rosa MD - [address] [facility] [address] - [phone] if not done at a [facility], please send to:[facility] [address], [address], [address]Saqgk: [phone] Rfzfcuf Name: Laquita Choudhury - 1975Order Created by : Osmel Rodriguez MA Performed By: #### L AB17, LAB18, LAB67, AVQ157, LAB94, LAB68, LAB69 ####Cinetechnician: EMERSON LIMON ([id number])[facility] (SW[facility])[address] [place] [address] Magnesiumon 06-14-2023 Magnesium [Mass/Vol] 2.0 mg/dL 1.6 - 2 .3 mg/dL [facility] No Panel Informationon 06-13 [facility] Interpretation and review of laboratory results Abnormal [facility] Interpretation and review of laboratory results Normal [facility] VITAMIN B1, WHOLE BLOODon VITAMIN B1,WHOLE BLOOD 119 nmol/L Normal 70-180 [facility] Comment on above: Order Comment: These orders are set for an approximate date - they can be drawn up to 3 months prior to the Expected Date on this Req.Please send results to: Chris Rosa MD - [address] [facility] 105[facility] [address] - [phone] if not done at a [facility], please send to:[address], [address], [address]Qnttd: [phone] Ehiyxtr Name: Laquita Choudhury - 1975Order Created by : Osmel Rodriguez MA Result Comment: INTE RPRETIVE INFORMATION: Vitamin B1, Whole Blood This assay measures the concentration of thiamine diphosphate (TDP), the primary active form of vitamin B1. Approximately 90 percent of vitamin B1 present in whole blood is TDP. Thiamine and thiamine monophosphate, which comprise the remaining 10 percent, are not measured. This test was developed and its performance characteristics determined by [employer]. It has not been cleared or approved by the US Food and Drug Administration. This test was performed in a CLIA certified laboratory and is intended for clinical purposes. Performed By: [employer] [address] [place] [address] Glycerin Operator: Raffaele Kerr MD, PhD CLIA Number: [id number] Performed By: #### L [id number] ####[employer] ([facility])[address] [place] [id number] [facility] VITAMIN B12on 06-14-2023 Cobalamin (Vitamin B12) [Mass/Vol] 986 pg/mL High 239-931 [facility] Comment on above: Order Comment: These orders are set for an approximate date - they can be drawn up to 3 months prior to the Expected Date on this Req.Please send results to: Chris Rosa MD - [address] [facility] 105[facility] [phone] - [phone] if not done at a [facility], please send to:[address], [address]Lkabr: [phone] Ujjqfgo Name: Laquita Choudhury - 1975Order Created by : Osmel Rodriguez MA Performed By: #### L AB17, LAB18, LAB67, MHA898, LAB94, LAB68, LAB69 ####Cinetechnician: EMERSON LIMON ([id number])[facility] ([address] VITAMIN D DEFICIENCY SCREENI NG (VIT D 25)on 06-14-2023 VIT D 25-OH, TOTAL 64 ng/mL Normal 30-100 [facility] Comment on above: Order Comment: These orders are set for an approximate date - they can be drawn up to 3 months prior to the Expected Date on this Req.Please send results to: Chris Rosa MD - [address] [facility] 105[facility] [id number] - [phone] if not done at a [facility], please send to:[facility] - [address] [place] [address], [address]Azdqn: [phone] Gsamqew Name: Laquita Choudhury - 1975Order Created by : Osmel Rodriguez MA Result Comment: ANDRES R COMMENTS: Therapy is based on measurement of Total 25-OHD with the following classification levels: Less than 20 ng/mL: Indicative of Vit D deficiency 20-30 ng/mL: Suggests Vit D insufficiency Optimal: Greater than or equal to 30 ng/mL Test performed by [employer], measuring Total Vitamin D, not individual fractions. Performed By: #### L [id number] ####Cinetechnician: JORGE GONZALEZ ([id number])[facility] ([facility])[address] [place] [address] [place] [address] [facility] Vitamin B12on 06-14-2023 Cobalamin (Vitamin B12) [Mass/Vol] 986 pg/mL High 239 - 931 pg/mL [facility] ZINCon 06-14-2023 ZINC, SERUM 79.6 ug/dL Normal 60.0-120.0 [facility] Comment on above: Order Comment: These orders are set for an approximate date - they can be drawn up to 3 months prior to the Expected Date on this Req.Please send results to: Chris Rosa MD - [address] [facility] 105[facility] [address] - [phone] if not done at a [facility], please send to:[facility] [place] - [address] [place] [address], [address] [facility], [address]Auxpt: [phone] Xwlfapd Name: Laquita Choudhury - 1975Order Created by : Osmel Rodriguez MA Result Comment: INTE RPRETIVE INFORMATION: Zinc, Serum or Plasma Elevated results may be due to skin or collection-related contamination, including the use of a noncertified metal-free collection/transport tube. If contamination concerns exist due to elevated levels of serum/plasma zinc, confirmation with a second specimen collected in a certified metal-free tube is recommended. Circulating zinc concentrations are dependent on albumin status and are depressed with malnutrition. Zinc may also be lowered with infection, inflammation, stress, oral contraceptives, and . Zinc may be elevated with zinc supplementation or fasting. Elevated zinc concentrations may interfere with copper absorption. This test was developed and its performance characteristics determined by [employer]. It has not been cleared or approved by the US Food and Drug Administration. This test was performed in a CLIA certified laboratory and is intended for clinical purposes. Performed By: [employer] [address] [place] [address] Glycerin Operator: Raffaele Kerr MD, PhD CLIA Number: [id number] Performed By: #### L [id number] ####[facility] ([facility])[address] [place] [id number] [facility] Laboratory - Chemistry and C hemistry - challengeOrdered By: Tonny Frias on 05-10-2023 HCG ( test) Ql (U) Negative [facility] Comment on above: Very dilute urine sp ecimens, as indicated by a low specificgravity, may not contain customer relations representative levels of hCG. If is still suspected, a first morning urinespecimen should be collected 48 hours later and tested. Laboratory - Microbiology an d Antimicrobial susceptibilityon 03-28-2023 SARS-CoV-2 (COVID-19) RNA THAD+probe Ql (Unsp spec) Not detected [facility] No Panel Informationon 03-28 Influenza Types A,B Rapid (Clinic) Detected [facility] Laboratory - Chemistry and C hemistry - challengeOrdered By: Vicente Adorno on 02-28-2023 Free T4 [Mass/Vol] 1.18 ng/dL 0.76-1.46 [facility] No Panel InformationOrdered By: Vicente Adorno on 02-28-2023 Thyroglobulin Antibody < 1.0 IU/mL 0.0-0.9 [facility] Comment on above: Thyroglobulin Antibo dy measured by [employer] Thyroglobulin Level 0.1 ng/mL 1.5-38.5 [facility] Comment on above: According to the [facility] [employer] of Clinical Biochemistry,the reference interval for Thyroglobulin (TG) should berelated to euthyroid patients and not for patients whounderwent thyroidectomy. TG reference intervals for thesepatients depend on the residual mass of the thyroid tissueleft after surgery. Establishing a post-operative baselineis recommended. The assay limit of quantitation is 0.1ng/mLThyroglobulin measured by [employer] ImmunometricAssayPerformed at: [facility] Lab[address] [id number] Director: Eddie Koch PhD, Phone: [phone] Thyroid Stimulating Hormone (TSH) 2.82 uIU/mL 0.358-3.74 [facility] Absolute lymphocyte countOrd ered By: Rell Baldwin on 02-09-2023 Lymphocytes Auto (Unsp spec) [#/Vol] 1.21 10*3/uL 0.83-4.51 [facility] Basophil percentageOrdered B y: Rell Baldwin on 02-09-2023 Basophils/100 WBC (Bld) 0.0 % 0-1 [facility] Chloride [Moles/Vol] 109 mmol/L 98-107 [facility] Eosinophils/100 WBC (Bld) 0.2 % 0-5 [facility] Glucose [Mass/Vol] 125 mg/dL 74-106 [facility] Comment on above: Fasting Glucose resu lt from 100 to 125 mg/dL suggests IMPAIRED HOMEOSTASIS per A.D.A. criteria. Neutrophils (Bld) [#/Vol] 4.2 10*3/uL 2.0-7.7 [facility] Neutrophils/100 WBC (Bld) 72.5 % 47-70 [facility] Potassium [Moles/Vol] 3.8 mmol/L 3.5-5.1 [facility] Sodium [Moles/Vol] 142 mmol/L 136-145 [facility] WBC (Bld) [#/Vol] 5.9 10*3/uL 4.4-11.0 [facility] Blood erythrocytes count (nu mber/volume)Ordered By: Rell Baldwin on 02-09-2023 RBC (Bld) [#/Vol] 3.39 10*6/uL 4.2-5.4 [facility] Blood hemoglobin measurement (mass/volume)Ordered By: Rell Baldwin on 02-09-2023 Hemoglobin (Bld) [Mass/Vol] 10.1 g/dL 12.0-15.0 [facility] Blood lymphocytes/100 leukoc ytesOrdered By: Rell Baldwin on 02-09-2023 Lymphocytes/100 WBC (Bld) 20.7 % 19-41 [facility] Blood monocytes/100 leukocyt esOrdered By: Rell Baldwin on 02-09-2023 Monocytes/100 WBC (Bld) 6.3 % 0-10 [facility] Blood platelet mean volumeOr dered By: Rell Baldwin on 02-09-2023 Platelet mean volume (Bld) [Entitic vol] 13.0 fL 6.2-12.0 [facility] Determination of erythrocyte mean corpuscular volume (MCV)Ordered By: Rell Baldwin on 02-09-2023 MCV (RBC) [Entitic vol] 94.7 fL 81-99 [facility] Hematocrit Auto (Bld) [Volum e fraction]Ordered By: Rell Baldwin on 02-09-2023 Hematocrit (Bld) [Volume fraction] 32.1 % 37-47 [facility] Laboratory - Chemistry and C hemistry - challengeOrdered By: Rell Baldwin on 02-09-2023 CO2 [Moles/Vol] 28.0 mmol/L 21.0-32.0 [facility] Urea nitrogen/Creatinine [Mass ratio] 10.6 mg/mg 10-20 [facility] Laboratory - Hematology and Cell countsOrdered By: Rell Baldwin on 02-09-2023 Erythrocyte distribution width (RBC) [Entitic vol] 45.3 fL 35.1-43.9 [facility] Erythrocyte distribution width (RBC) [Ratio] 13.0 % 11.6-14.6 [facility] Immature granulocytes/100 WBC (Bld) 0.300 % 0.0-0.9 [facility] Comment on above: IG% - Immature Granu locytes (promyelocytes, myelocytes and metamyelocytes) > 1% indicates that a LEFT SHIFT is Present. MCH (RBC) [Entitic mass] 29.8 pg 27.0-32.0 [facility] Nucleated RBC/100 WBC (Bld) [Ratio] 0 % 0-5 [facility] MCHC Auto (RBC) [Mass/Vol]Or dered By: Rell Baldwin on 02-09-2023 MCHC (RBC) [Mass/Vol] 31.5 g/dL 32-36 [facility] No Panel InformationOrdered By: Rell Baldwin on 02-09-2023 Estimated Creatinine Clearance Calc 92.07 ml/min [facility] Estimated GFR (MDRD) Amer 146 mL/min >60 [facility] Comment on above: GFR Calc Estimated GFR (MDRD) Non-Af Amer 121 mL/min >60 [facility] Comment on above: Non- GFR Calc Platelets bldOrdered By: Ivett Baldwin on 02-09-2023 Platelets (Bld) [#/Vol] 213 10*3/uL 150-450 [facility] Serum or plasma calcium elicia urement (mass/volume)Ordered By: Rell Baldwin on 02-09-2023 Calcium [Mass/Vol] 8.4 mg/dL 8.5-10.1 [facility] Serum or plasma creatinine m easurement (mass/volume)Ordered By: Rell Baldwin on 02-09-2023 Creatinine [Mass/Vol] 0.57 mg/dL 0.55-1.02 [facility] Comment on above: The validity of the calculated GFR & GFRAA in patients over 70 years has not been determined. Clinical correlation is essential. Serum or plasma urea nitroge n measurement (mass/volume)Ordered By: Rell Baldwin on 02-09-2023 Urea nitrogen [Mass/Vol] 6 mg/dL 7-18 [facility] Thin prep Papanicolaou smear with manual screeningOrdered By: Rell Baldwin on 02-09-2023 Thin prep Papanicolaou smear with manual screening 5 5-15 [facility] Basophil percentageOrdered B y: Bert López on 02-08-2023 Bilirubin [Mass/Vol] 0.80 mg/dL 0.20-1.00 [facility] Comment on above: For patients on eltr ombopag therapy, use of [employer] TBIL is not recommended. Protein [Mass/Vol] 5.6 g/dL 6.4-8.2 [facility] Laboratory - Chemistry and C hemistry - challengeOrdered By: Bert López on 02-08-2023 ALP [Catalytic activity/Vol] 257 U/L 45-117 [facility] ALT [Catalytic activity/Vol] 120 U/L 13-56 [facility] Globulin (S) [Mass/Vol] 3.1 g/dL 2.2-4.2 [facility] Serum or plasma albumin elicia urement (mass/volume)Ordered By: Bert López on 02-08-2023 Albumin [Mass/Vol] 2.5 g/dL 3.2-5.0 [facility] Serum or plasma albumin/glob ulin mass ratioOrdered By: Bert López on 02-08-2023 Albumin/Globulin [Mass ratio] 0.8 {ratio} 0.9-2.4 [facility] Thin prep Papanicolaou smear with manual screeningOrdered By: Bert López on 02-08-2023 Thin prep Papanicolaou smear with manual screening 48 U/L 15-37 [facility] Beta hCG serum qualOrdered B y: Tonny Frias on 02-07-2023 Beta HCG ( test) Ql Negative [facility] Laboratory - CoagulationOrde red By: Bert López on 02-06-2023 PT Coag (PPP) [Time] 13.9 s 11.7-14.9 [facility] No Panel InformationOrdered By: Bert López on 02-06-2023 Thyroid Stimulating Hormone (TSH) 9.99 uIU/mL 0.358-3.74 [facility] Whole blood international no rmalized ratio (INR)Ordered By: Bert López on 02-06-2023 INR Coag (Bld) [Relative time] 1.1 {INR} [facility] Absolute lymphocyte countOrd ered By: Priscilla Alejandre on 02-05-2023 Lymphocytes Auto (Unsp spec) [#/Vol] 0.99 10*3/uL 0.83-4.51 [facility] Basophil percentageOrdered B y: Bert López on 02-05-2023 Basophil percentage 3.3 mg/dL 2.5-4.9 [facility] Basophil percentageOrdered B y: Priscilla Alejandre on 02-05-2023 Basophils/100 WBC (Bld) 0.1 % 0-1 [facility] Bilirubin [Mass/Vol] 3.20 mg/dL 0.20-1.00 [facility] Comment on above: For patients on eltr ombopag therapy, use of [employer] TBIL is not recommended. Chloride [Moles/Vol] 106 mmol/L 98-107 [facility] Eosinophils/100 WBC (Bld) 1.1 % 0-5 [facility] Glucose [Mass/Vol] 107 mg/dL 74-106 [facility] Comment on above: Fasting Glucose resu lt from 100 to 125 mg/dL suggests IMPAIRED HOMEOSTASIS per A.D.A. criteria. Neutrophils (Bld) [#/Vol] 5.7 10*3/uL 2.0-7.7 [facility] Neutrophils/100 WBC (Bld) 78.4 % 47-70 [facility] Potassium [Moles/Vol] 3.9 mmol/L 3.5-5.1 [facility] Protein [Mass/Vol] 7.0 g/dL 6.4-8.2 [facility] Sodium [Moles/Vol] 138 mmol/L 136-145 [facility] WBC (Bld) [#/Vol] 7.3 10*3/uL 4.4-11.0 [facility] Basophil percentageOrdered B y: Rell Jamescooper on 02-05-2023 Basophil percentage 0-5 SEEN /hpf 0-5 [facility] Bilirubin Test strip Ql (U)O rdered By: Rell Dawn on 02-05-2023 Bilirubin Ql (U) 6 mg/dL Negative [facility] Comment on above: COLOR OF URINE MAY A FFECT DIPSTICK RESULTS. Blood erythrocytes count (nu mber/volume)Ordered By: Priscilla Alejandre on 02-05-2023 RBC (Bld) [#/Vol] 4.42 10*6/uL 4.2-5.4 [facility] Blood hemoglobin measurement (mass/volume)Ordered By: Priscilla Alejandre on 02-05-2023 Hemoglobin (Bld) [Mass/Vol] 13.0 g/dL 12.0-15.0 [facility] Blood lymphocytes/100 leukoc ytesOrdered By: Priscilla Alejandre on 02-05-2023 Lymphocytes/100 WBC (Bld) 13.6 % 19-41 [facility] Blood monocytes/100 leukocyt esOrdered By: Priscilla Alejandre on 02-05-2023 Monocytes/100 WBC (Bld) 6.5 % 0-10 [facility] Blood platelet mean volumeOr dered By: Priscilla Alejandre on 02-05-2023 Platelet mean volume (Bld) [Entitic vol] 11.8 fL 6.2-12.0 [facility] Culture, urineOrdered By: Petty Alejandre on 02-05-2023 Bacteria identified Cx Nom (U) Culture exhibits no growth. [facility] Determination of erythrocyte mean corpuscular volume (MCV)Ordered By: Priscilla Alejandre on 02-05-2023 MCV (RBC) [Entitic vol] 90.0 fL 81-99 [facility] Direct bilirubinOrdered By: Bert López on 02-05-2023 Bilirubin.direct [Mass/Vol] 2.31 mg/dL 0.00-0.30 [facility] Hematocrit Auto (Bld) [Volum e fraction]Ordered By: Priscilla Alejandre on 02-05-2023 Hematocrit (Bld) [Volume fraction] 39.8 % 37-47 [facility] Ketones Test strip Ql (U)Ord ered By: Rell Seymour on 02-05-2023 Ketones Ql (U) 50 mg/dl Negative [facility] Laboratory - Chemistry and C hemistry - challengeOrdered By: Bert López on 02-05-2023 Magnesium [Mass/Vol] 1.9 mg/dL 1.6-2.6 [facility] Laboratory - Chemistry and C hemistry - challengeOrdered By: Priscilla Alejandre on 02-05-2023 ALP [Catalytic activity/Vol] 372 U/L 45-117 [facility] ALT [Catalytic activity/Vol] 221 U/L 13-56 [facility] CO2 [Moles/Vol] 27.0 mmol/L 21.0-32.0 [facility] Globulin (S) [Mass/Vol] 3.8 g/dL 2.2-4.2 [facility] Lipase [Catalytic activity/Vol] 3086 U/L 13-75 [facility] Comment on above: Please note:LIPASE r evised reference range effective 22. New Lipase methodology. Expected to produce lower values than the previous assay method. NEW Reference Range: 13 - 75 U/L Urea nitrogen/Creatinine [Mass ratio] 18.6 mg/mg 10-20 [facility] Laboratory - Hematology and Cell countsOrdered By: Priscilla Alejandre on 02-05-2023 Erythrocyte distribution width (RBC) [Entitic vol] 43.3 fL 35.1-43.9 [facility] Erythrocyte distribution width (RBC) [Ratio] 13.1 % 11.6-14.6 [facility] Immature granulocytes/100 WBC (Bld) 0.300 % 0.0-0.9 [facility] Comment on above: IG% - Immature Granu locytes (promyelocytes, myelocytes and metamyelocytes) > 1% indicates that a LEFT SHIFT is Present. MCH (RBC) [Entitic mass] 29.4 pg 27.0-32.0 [facility] Nucleated RBC/100 WBC (Bld) [Ratio] 0 % 0-5 [facility] MCHC Auto (RBC) [Mass/Vol]Or dered By: Priscilla Alejandre on 02-05-2023 MCHC (RBC) [Mass/Vol] 32.7 g/dL 32-36 [facility] Mucus LM Ql (Urine sed)Order ed By: Rell Seymour on 02-05-2023 Mucus Ql (Urine sed) 0 SEEN /hpf [facility] Nitrite Test strip Ql (U)Ord ered By: Rell Seymour on 02-05-2023 Nitrite Ql (U) Positive Negative [facility] No Panel InformationOrdered By: Priscilla Alejandre on 02-05-2023 Estimated GFR (MDRD) Amer 106 mL/min >60 [facility] Comment on above: GFR Calc Estimated GFR (MDRD) Non-Af Amer 88 mL/min >60 [facility] Comment on above: Non- GFR Calc Platelets bldOrdered By: Job Alejandre on 02-05-2023 Platelets (Bld) [#/Vol] 217 10*3/uL 150-450 [facility] Protein Test strip Ql (U)Ord ered By: Rell Seymour on 02-05-2023 Protein Ql (U) 30 mg/dl Negative [facility] Serum or plasma albumin elicia urement (mass/volume)Ordered By: Priscilla Alejandre on 02-05-2023 Albumin [Mass/Vol] 3.2 g/dL 3.2-5.0 [facility] Serum or plasma albumin/glob ulin mass ratioOrdered By: Priscilla Alejandre on 02-05-2023 Albumin/Globulin [Mass ratio] 0.8 {ratio} 0.9-2.4 [facility] Serum or plasma calcium elicia urement (mass/volume)Ordered By: Priscilla Alejandre on 02-05-2023 Calcium [Mass/Vol] 9.6 mg/dL 8.5-10.1 [facility] Serum or plasma creatinine m easurement (mass/volume)Ordered By: Priscilla Alejandre on 02-05-2023 Creatinine [Mass/Vol] 0.75 mg/dL 0.55-1.02 [facility] Comment on above: The validity of the calculated GFR & GFRAA in patients over 70 years has not been determined. Clinical correlation is essential. Serum or plasma urea nitroge n measurement (mass/volume)Ordered By: Priscilla Alejandre on 02-05-2023 Urea nitrogen [Mass/Vol] 14 mg/dL 7-18 [facility] Squamous epithelial cells de tection in urine sediment by light microscopyOrdered By: Rell Seymour on 02-05-2023 Epithelial cells.squamous LM Ql (Urine sed) 0-5 SEEN /hpf 5-10 [facility] Thin prep Papanicolaou smear with manual screeningOrdered By: Priscilla Alejandre on 02-05-2023 Thin prep Papanicolaou smear with manual screening 100 U/L 15-37 [facility] Thin prep Papanicolaou smear with manual screening 5 5-15 [facility] Urine blood detectionOrdered By: Rell Seymour on 02-05-2023 RBC Ql (U) 250 /ul Negative [facility] RBC Ql (U) 5-10 SEEN /hpf 0-5 [facility] Urine clarityOrdered By: Ivett Seymour on 02-05-2023 Clarity (U) Sl. Cloudy Clear [facility] Urine color determinationOrd ered By: Rell Seymour on 02-05-2023 Color (U) Adrianne Yellow [facility] Urine glucose detectionOrder ed By: Rell Seymour on 02-05-2023 Glucose Ql (U) Normal mg/dl Normal [facility] Urine leukocyte esterase det ection by dipstickOrdered By: Rell Seymour on 02-05-2023 Leukocyte esterase Test strip Ql (U) 100 /ul Negative [facility] Urine pHOrdered By: Rell beatty on 02-05-2023 pH (U) 5.0 [pH] 5.0 - 8.0 [facility] Urine sediment bacteria coun t by microscopy (number/high power field)Ordered By: Rell Seymour on 02-05-2023 Bacteria LM.HPF (Urine sed) [#/Area] 1 /[HPF] None Seen [facility] Urine specific gravity measu rementOrdered By: Rell Seymour on 02-05-2023 Specific gravity (U) [Rel density] 1.025 1.002-1.03 0 [facility] Urobilinogen Auto test strip Ql (U)Ordered By: Rell Seymour on 02-05-2023 Urobilinogen Ql (U) 8 mg/dl Normal [place] [facility] [id number] 02-01-2023 [id number] DOS 05/24/[address] Collazo Last OV LB 12/27/22 Patient states that she gets mid abdominal pain above belly button. Describes it as sharp pain that comes on suddenly and takes her breath away. She feels the pain is relieved temporarily after a bowel movement. When the pain occurs she is nauseated and cannot eat anything until it resolves. This was happening in November as well and had resolved (see TE 11/23/22) Patient does not feel that eating/ non-eating causes the onset. Bowel movements are solid and normal color. States she is compliant with bariatric diet protocol Normal [facility] Office Visiton 12-27-2022 Follow-up visit [id number] Laquita Choudhury 1975 F Date Provider Department Center 12/27/2022 [id number]-MRQUZMEKATERINA WHARTON ACH BCC SURG None Family History Problem Relation Age of Onset Obesity Mother Diabetes Mother Diabetes type II Mother Cancer Maternal Grandmother Family Status - Relation Status Age at Mother Maternal Grandmother Level of Service:87059 [place] OFFICE/OUTPATIENT ESTABLISHED MOD MDM 30 MIN Reason for Visit and Comments: Bariatrics Post Op Follow-up [884] - 7 Month Normal [facility] Progress Noteon 12-27-2022 Progress Note JARROD COLLAZO MD , F ACS, [facility] BARIATRIC AND METABOLIC SURGERY [facility] 6 MONTH POST-OP EVALUATION 12/27/2022 PATIENT: Laquita Choudhury DATE OF : 1975 CHIEF COMPLAINT 6 month follow-up status post Laparoscopic Sleeve Gastrectomy SUBJECTIVE Laquita Choudhury is a 47 y.o. female who presents to the bariatric care center today for their 6 month evaluation following bariatric surgery with Dr. Collazo. The total weight lost is 56 pounds for a 42 % EWL. Overall, the patient is satisfied with the short-term weight loss and health benefits related to the bariatric intervention. Dietary compliance concerns: No Exercise and activity concerns: No Compliance and phychologic concerns: No Dysphagia and eating concerns: No Excessive skin concerns: No The patient is feeling well and denies any major complaints or GI symptoms. The dietary regimen and exercise activities are going well. The patient is compliant with protein intake and vitamin/trace element supplementation. Labs were Completed Laboratory results were within an acceptable range Review of Systems Constitutional: Negative for chills and fever. HENT: Negative for sore throat and trouble swallowing. Respiratory: Negative for chest tightness and shortness of breath. Cardiovascular: Negative for chest pain and leg swelling. Gastrointestinal: Negative for abdominal distention, diarrhea, nausea and vomiting. Genitourinary: Negative for decreased urine volume. Skin: Negative for rash. Neurological: Negative for dizziness, syncope and weakness. Psychiatric/Behavioral: Negative for confusion. The patient is not nervous/anxious. Current Medications: Patient's Medications New Prescriptions No medications on file Previous Medications ACETAMINOPHEN (TYLENOL) 500 MG TABLET Take 500 mg by mouth every 8 hours as needed for mild pain (1-3). ALBUTEROL 108 (90 BASE) MCG/ACT INHALER Inhale 2 puffs every 4 hours as needed. CALCIUM CITRATE-VITAMIN D (CALCIUM CITRATE +D PO) Take 500 mg by mouth 3 times daily. CHOLECALCIFEROL (D3-5) 5,000 UNITS TABLET Take 1 tablet by mouth in the morning. CYANOCOBALAMIN (VITAMIN B-12) 500 MCG TABLET Take 500 mcg by mouth daily. Sublingual FERROUS SULFATE 325 (65 FE) MG TABLET Take 325 mg by mouth 2 times daily. LEVOTHYROXINE (SYNTHROID, LEVOXYL) 150 MCG TABLET Take 150 mcg by mouth every morning (before breakfast). Five days weekly MULTIPLE VITAMINS-IRON (MULTIVITAMIN/IRON PO) Take 1 Dose by mouth daily. ZINC GLUCONATE 50 MG TABLET Take 50 mg by mouth daily. Modified Medications No medications on file Discontinued Medications DULOXETINE (CYMBALTA) [address] CAPSULE Take 60 mg by mouth in the morning. OMEPRAZOLE (PRILOSEC) [address] CAPSULE Take 1 capsule (20 mg) by mouth daily. Do not crush or chew. PHYSICAL EXAM BP 125/82 Pulse 88 Temp 36.8 ?C (98.2 ?F) Resp 16 Ht 5' 1 (1.549 m) Wt 184 lb 6.4 oz (83.6 kg) BMI 34.84 kg/m? General: This patient is awake, alert, and oriented, and is in no apparent distress. Cardiac: Regular rate and rhythm without evidence of murmur. Respiratory: Clear to auscultation bilaterally. Abdomen: Soft, non-tender, non-distended without masses/ No evidence of abdominal hernia / Incisions consistent with previous surgeries. Head and Neck: Normocephalic and atraumatic/soft and supple, no lymphadenopathy or obvious bruits. Extremities: No cyanosis, clubbing or edema/ No calf tenderness/No restrictions of movement, is ambulatory without assistance. Neurological: Intact x 4 extremities, no focal deficits notes. Skin: No rashes or lesions noted. Incisions are clean dry and intact without evidence of infection or erythema. ASSESSMENT 6 month status post bariatric surgery Visit Diagnoses: 1. Deficiency of multiple nutrient elements 2. Hypothyroidism, unspecified type 3. Class 1 obesity due to excess calories with body mass index (BMI) of 34.0 to 34.9 in adult, unspecified whether serious comorbidity present PLAN 1). Compliance with exercise and dietary regimen (see dietitian recommendations) 2). Follow up with PCP for regular health maintenance vistis 3). Follow up with obesity medicine team for annual bariatric follow up / bloodwork 4). If patient is a woman of childrearing age- 18-50. We discussed the importance of contraception during the first 12-18 months post op, and we discussed that fertility will increase following the procedure. Advised patient to discuss with her OBGYN regarding contraception. Patient counseled with good understanding verbalized. 5). Discussed stopping PPI with patient. Patient is call if any mentioned symptoms return: persistent nausea all day, epigastric pain, pain radiating under either side of rib cage or pain in the middle of their back that is not improving. Addit (more content not included)... [facility] Progress Note [facility] > 6 MONTH POST-OPERATIVE DIETITIAN VISIT Date: 12/27/22 Patient's weight decreased by: 56.6 lbs Patient does consume 5-6 small meals daily Patient?s portions are adequate for current diet: ?-1 cup Protein requirements discussed- currently consuming 60-80 grams protein daily. Current protein sources: Jamaican yogurt, cottage cheese, chicken, turkey, Protein shake, eggs, beans, nuts Recommendations:none Fluid requirements discussed. Current Fluid Intake: 40-60 oz/day Patient does drink sugar-free, caffeine-free and carbonation-free fluids only. Patient does wait 30 minutes before and after meals to drink Exercise activities discussed. Patient does currently exercise. She was reminded that regular exercise is critical part of a successful outcome following weight loss surgery. (Walking) Behavioral/Emotional changes reviewed. Patient does feel comfortable with changes in eating behaviors and associated emotional changes. She was reminded that psychological counseling is available through the Bariatric Care Center post-operatively. Recent Nutrient Concerns and Vitamin Supplementation Changes: Pt compliant with vitamin/mineral protocol. Noted low ferritin-labs addressed by RD-see TE 12/26/2022. Notes/Comments: Pt doing well. Encourage try Smooth Move tea to aid in constipation and adding to fluid intake. Pt encouraged to call/Mychart with questions. Visit completed by: Vale Aponte RD [facility] 36on 12-26-2022 36 NOTED, THANKS. SIGNED. [facility] 36 Spoke to patient luna Terrazas regarding labs. Patient reports she is taking daily MVI with 18 mg of iron and ferrous sulfate 325 mg twice daily. She does report to taking MVI and calcium together, so RD encouraged patient continue taking MVI with iron once daily, ferrous sulfate 325 mg BID, but recommended spacing out the iron and calcium by at least 2 hours. Encouraged patient discuss lipids with PCP. Orders pending to recheck labs in [address] [facility] 36on 12-21-2022 36 DOS 05/24/2022 LSG AD. Next OV 12/27/22 for 7M POP Labs (12/20/22) Hgb: 11.4 (L) Hct: 34.9 (L) Ferritin: 8 (L normal) Iron: 44 (L normal) Lipids -- defer to PCP Sending MyChart message to patient to discuss labs. Normal [facility] 36 ----- Message from LISSET Lindsay CNP sent at 12/21/2022 7:30 AM EDT ----- Ferritin low still. Chol to pcp, thanks. Normal [facility] 25-hydroxyvitamin D3 [Mass/V ol]on 12-20-2022 Interpretation and review of laboratory results Normal [facility] Therapy is based on measurement of Total 25-OHD with the following classification levels: Less than 20 ng/mL: Indicative of Vit D deficiency 20-30 ng/mL: Suggests Vit D insufficiency Optimal: Greater than or equal to 30 ng/mL Test performed by [employer] Competitive Immunoassay, measuring Total Vitamin D, not individual fractions. [facility] CBC (HEMOGRAM)on 12-20-2022 Erythrocyte distribution width (RBC) [Ratio] 12.8 % Normal 11.5-14.5 [facility] Comment on above: Order Comment: These orders are set for an approximate date - they can be drawn up to 3 months prior to the Expected Date on this Req.Please send results to: Chris Rosa MD - [address] [address] - [phone] if not done at a [facility], please send to:[facility] [place] - [address] [place] [address], [address], [address]Erdkd: [phone] Hwvwjut Name: Laquita Choudhury - 1975Order Created by : Rhona Shankar MA Performed By: #### L [id number] ####Cinetechnician: EMERSON LIMON ([id number])[facility] ([facility])[address] [place] [address] ERYTHROCYTE MEAN CORPUSCULAR HEMOGLOBIN CONCENTRATION (G/DL) BY AUTOMATED 32.7 % Normal 32.0-36.0 [facility] Comment on above: Order Comment: These orders are set for an approximate date - they can be drawn up to 3 months prior to the Expected Date on this Req.Please send results to: MD Jorge L Melendez [address] [facility] 105[facility] [address] - [phone] if not done at a [facility], please send to:[address], [address]Srcxy: [phone] Szrlxvl Name: Laquita Choudhury - 1975Order Created by : Rhona Shankar MA Performed By: #### L [id number] ####Cinetechnician: EMERSON LIMON ([id number])[facility] ([facility])[address] [place] [address] Hematocrit (Bld) [Volume fraction] 34.9 % Low 35.0-47.0 [facility] Comment on above: Order Comment: These orders are set for an approximate date - they can be drawn up to 3 months prior to the Expected Date on this Req.Please send results to: MD Jorge L Melendez [address] [facility] 105[facility] [id number] - [phone] if not done at a [facility], please send to:[address], [address]Gjmat: [phone] Mjwsufa Name: Laquita Choudhury 1975Order Created by : Rhona Shankar MA Performed By: #### L [id number] ####Cinetechnician: EMERSON LIMON ([id number])[facility] ([facility])[address] [place] [address] Hemoglobin (Bld) [Mass/Vol] 11.4 g/dL Low 11.7-16.0 [facility] Comment on above: Order Comment: These orders are set for an approximate date - they can be drawn up to 3 months prior to the Expected Date on this Req.Please send results to: MD Jorge L Melendez [address] [facility] 105[facility] [address] - [phone] if not done at a [facility], please send to:[address], [address]Shsxw: [phone] Pxjdqvu Name: Laquita Coats 1975Order Created by : Rhona Shankar MA Performed By: #### L AB294 ####Cinetechnician: EMERSON LIMON ([id number])[facility] ([facility])[address] [place] [address] MCH (RBC) [Entitic mass] 30.5 pg Normal 26.0-34.0 [facility] Comment on above: Order Comment: These orders are set for an approximate date - they can be drawn up to 3 months prior to the Expected Date on this Req.Please send results to: Chris Rosa MD - [address] [facility] [address] [phone] - [phone] if not done at a [facility], please send to:[address], [address]Tfuqk: [phone] Xkfrrbi Name: Laquita Choudhury - 1975Order Created by : Rhona Shankar MA Performed By: #### L AB294 ####Cinetechnician: EMERSON LIMON ([id number])[facility] ([facility])[address] [place] [address] MCV (RBC) [Entitic vol] 93.3 fL Normal 80.0-98.0 [facility] Comment on above: Order Comment: These orders are set for an approximate date - they can be drawn up to 3 months prior to the Expected Date on this Req.Please send results to: Chris Rosa MD - [address] [facility] 105[facility] [phone] - [phone] if not done at a [facility], please send to:[address], [address]Yhsrv: [phone] Eaygayg Name: Laquita Coats 1975Order Created by : Rhona Shankar MA Performed By: #### L AB294 ####Cinetechnician: EMERSON LIMON ([id number])[facility] ([facility])[address] [place] [address] [place] Platelet mean volume (Bld) [Entitic vol] 11.3 fL Normal 7.4-12.4 [facility] Comment on above: Order Comment: These orders are set for an approximate date - they can be drawn up to 3 months prior to the Expected Date on this Req.Please send results to: Chris Rosa MD - [address] [facility] 105[facility] [phone] - [phone] if not done at a [facility], please send to:[facility] - [address] [place] [address], [address]Rterk: [phone] Hjdtdvk Name: Laquita Coats 1975Order Created by : Rhona Shankar MA Result Comment: MPV is a calculated measurement using platelet volume ratio Performed By: #### L AB294 ####Cinetechnician: EMERSON LIMON ([id number])[facility] ([facility])[address] [place] [address] [place] Platelets (Bld) [#/Vol] 216 10*3/uL Normal 140-440 [facility] Comment on above: Order Comment: These orders are set for an approximate date - they can be drawn up to 3 months prior to the Expected Date on this Req.Please send results to: Chris Rosa MD - [address] [facility] 105[facility] [phone] - [phone] if not done at a [facility], please send to:[address], [address]Obqwx: [phone] Xhkilfb Name: Laquita Coats 1975Order Created by : Rhona Shankar MA Performed By: #### L AB294 ####Cinetechnician: EMERSON LIMON ([id number])[facility] ([facility])[address] [place] [address] RBC (Bld) [#/Vol] 3.74 10*6/uL Low 3.8-5.20 [facility] Comment on above: Order Comment: These orders are set for an approximate date - they can be drawn up to 3 months prior to the Expected Date on this Req.Please send results to: Chris Rosa MD - [address] [place] [phone] - [phone] if not done at a [facility], please send to:[address] [address]Rgtct: [phone] Qalvrer Name: Laquita Coats 1975Order Created by : Rhona Shankar MA Performed By: #### L AB294 ####Cinetechnician: EMERSON LIMON ([id number])[facility] ([facility])[address] [place] [address] WBC (Bld) [#/Vol] 5.7 10*3/uL Normal 3.6-10.7 [facility] Comment on above: Order Comment: These orders are set for an approximate date - they can be drawn up to 3 months prior to the Expected Date on this Req.Please send results to: Chris Rosa MD - [address] [facility] 105[facility] [address] - [phone] if not done at a [facility], please send to:[address] [address]Hkgaw: [phone] Lvpnfyn Name: Laquita Coats 1975Order Created by : Rhona Shankar MA Performed By: #### L AB294 ####Cinetechnician: EMERSON LIMON ([id number])[facility] ([facility])[address] [place] [address] CBC panel Auto (Bld)Ordered By: Aisha Fowler on 12-20-2022 Erythrocyte distribution width (RBC) [Ratio] 12.8 % 11.5 - 14.5 % [facility] Hematocrit (Bld) [Volume fraction] 34.9 % Low 35.0 - 47.0 % [facility] Hemoglobin (Bld) [Mass/Vol] 11.4 g/dL Low 11.7 - 16.0 g/dL [facility] Interpretation and review of laboratory results Abnormal [facility] MCH (RBC) [Entitic mass] 30.5 pg 26.0 - 34.0 pg [facility] MCHC (RBC) [Mass/Vol] 32.7 % 32.0 - 36.0 % [facility] MCV (RBC) [Entitic vol] 93.3 fL 80.0 - 98.0 fL [facility] Platelet mean volume (Bld) [Entitic vol] 11.3 fL 7.4 - 12.4 fL [facility] Comment on above: MPV is a calculated measurement using platelet volume ratio Platelets (Bld) [#/Vol] 216 10*3/uL 140 - 440 10*3/uL [facility] RBC (Bld) [#/Vol] 3.74 10*6/uL Low 3.8 - 5.20 10*6/uL [facility] WBC (Bld) [#/Vol] 5.7 10*3/uL 3.6 - 10.7 10*3/uL [facility] COMPREHENSIVE METABOLIC PANE Reginald 12-20-2022 Albumin [Mass/Vol] 4.0 g/dL Normal 3.5-5.0 [facility] Comment on above: Order Comment: These orders are set for an approximate date - they can be drawn up to 3 months prior to the Expected Date on this Req.Please send results to: Chris Rosa MD - [address] [facility] [address] [address] - [phone] if not done at a [facility], please send to:[address], [address]Prqse: [phone] Odenlxk Name: Laquita Choudhury - 1975Order Created by : Rhona Shankar MA Performed By: #### L AB17, LAB67, LAB69, LAB18, [id number], LAB68 ####Cinetechnician: EMERSON LIMON ([id number])[facility])[address] [place] [address] ALP [Catalytic activity/Vol] 56 U/L Normal 38-126 [facility] Comment on above: Order Comment: These orders are set for an approximate date - they can be drawn up to 3 months prior to the Expected Date on this Req.Please send results to: Chris Rosa MD - [address] [phone] - [phone] if not done at a [facility], please send to:[address], [address]Oeflj: [phone] Qucmsvg Name: Laquita Choudhury - 1975Order Created by : Rhona Shankar MA Performed By: #### L AB17, LAB67, LAB69, LAB18, [id number], LAB68 ####Cinetechnician: EMERSON LIMON ([id number])[facility] ([facility])[address] [place] [address] ALT [Catalytic activity/Vol] 106 U/L High 0-34 [facility] Comment on above: Order Comment: These orders are set for an approximate date - they can be drawn up to 3 months prior to the Expected Date on this Req.Please send results to: Chris Rosa MD - [address] [facility] 105[facility] [phone] - [phone] if not done at a [facility], please send to:[address], [address]Uxfyv: [phone] Ditrgia Name: Laquita Coats 1975Order Created by : Rhona Shankar MA Performed By: #### L AB17, LAB67, LAB69, LAB18, [id number], LAB68 ####Cinetechnician: EMERSON LIMON ([id number])[facility] ([facility])[address] [place] [address] Anion gap [Moles/Vol] 7 mmol/L Normal 3-13 [facility] Comment on above: Order Comment: These orders are set for an approximate date - they can be drawn up to 3 months prior to the Expected Date on this Req.Please send results to: Chris Rosa MD - [address] [address] - [phone] if not done at a [facility], please send to:[address], [address]Byaqh: [phone] Iacrxaz Name: Laquita Coats 1975Order Created by : Rhona Shankar MA Performed By: #### L AB17, LAB67, LAB69, LAB18, [id number], LAB68 ####Cinetechnician: EMERSON LIMON ([id number])[facility] ([facility])[address] [place] [address] AST [Catalytic activity/Vol] 34 U/L Normal 15-46 [facility] Comment on above: Order Comment: These orders are set for an approximate date - they can be drawn up to 3 months prior to the Expected Date on this Req.Please send results to: Chris Rosa MD - [address] [facility] [phone] - [phone] if not done at a [facility], please send to:[address], [address]Xoyoq: [phone] Oeidiax Name: Laquita Coats 1975Order Created by : Rhona Shankar MA Performed By: #### L AB17, LAB67, LAB69, LAB18, [id number], LAB68 ####Cinetechnician: EMERSON LIMON ([id number])[facility])[address] [place] [address] Bilirubin [Mass/Vol] 0.2 mg/dL Normal 0.2-1.3 [facility] Comment on above: Order Comment: These orders are set for an approximate date - they can be drawn up to 3 months prior to the Expected Date on this Req.Please send results to: Chris Rosa MD - [address] [phone] - [phone] if not done at a [facility], please send to:[address], [address]Qrday: [phone] Ejtaegx Name: Laquita Coats 1975Order Created by : Rhona Shankar MA Performed By: #### L AB17, LAB67, LAB69, LAB18, [id number], LAB68 ####Cinetechnician: EMERSON LIMON ([id number])[facility])[address] [place] [address] Calcium [Mass/Vol] 9.0 mg/dL Normal 8.4-10.4 [facility] Comment on above: Order Comment: These orders are set for an approximate date - they can be drawn up to 3 months prior to the Expected Date on this Req.Please send results to: Chris Rosa MD - [address] [facility] [address] [phone] - [phone] if not done at a [facility], please send to:[address], [address]Knqaj: [phone] Zmosphx Name: Laquita Coats 1975Order Created by : Rhona Shankar MA Performed By: #### L AB17, LAB67, LAB69, LAB18, [id number], LAB68 ####Cinetechnician: EMERSON LIMON ([id number])[facility] ([facility])[address] [place] [address] Chloride [Moles/Vol] 104 mmol/L Normal 98-107 [facility] Comment on above: Order Comment: These orders are set for an approximate date - they can be drawn up to 3 months prior to the Expected Date on this Req.Please send results to: Chris Rosa MD - [address] [phone] - [phone] if not done at a [facility], please send to:[address], [address]Zbygu: [phone] Lhqutxw Name: Laquita Coats 1975Order Created by : Rhona Shankar MA Performed By: #### L AB17, LAB67, LAB69, LAB18, [id number], LAB68 ####Cinetechnician: EMERSON LIMON ([id number])[facility] (RLAB)[address] [place] [address] CO2 [Moles/Vol] 28 mmol/L Normal 22-30 [facility] Comment on above: Order Comment: These orders are set for an approximate date - they can be drawn up to 3 months prior to the Expected Date on this Req.Please send results to: Chris Rosa MD - [address] [phone] - [phone] if not done at a [facility], please send to:[address], [address], [address]Jexrr: [phone] Etltvvo Name: Laquita Coats 1975Order Created by : Rhona Shankar MA Performed By: #### L AB17, LAB67, LAB69, LAB18, [id number], LAB68 ####Cinetechnician: EMERSON LIMON ([id number])[facility] (SWRLAB)[address] [place] [address] Creatinine [Mass/Vol] 0.77 mg/dL Normal 0.52-1.04 [facility] Comment on above: Order Comment: These orders are set for an approximate date - they can be drawn up to 3 months prior to the Expected Date on this Req.Please send results to: Chris Rosa MD - [address] [facility] 105[facility] [address] - [phone] if not done at a [facility], please send to:[facility] - [address] [place] [address], [address]Znrac: [phone] Gyookck Name: Laquita Coats 1975Order Created by : Rhona Shankar MA Performed By: #### L AB17, LAB67, LAB69, LAB18, BRW538, LAB68 ####Cinetechnician: EMERSON LIMON ([id number])[facility] (SWRLAB)[address] [place] [address] GLOMERULAR FILTRATION RATE ML/MIN/1.73 SQ M.PREDICTED >90.0 Normal >60.0 [facility] Comment on above: Order Comment: These orders are set for an approximate date - they can be drawn up to 3 months prior to the Expected Date on this Req.Please send results to: Chris Rosa MD - [address] [facility] [address] [address] - [phone] if not done at a [facility], please send to:[facility] - [address] [place] [address], [address]Kmypl: [phone] Sgdhenv Name: Laquita Coats 1975Order Created by : Rhona Shankar MA Result Comment: Calc ulation based on the Chronic Kidney Disease Epidemiology Collaboration (CKD-EPI) equation refit without adjustment for race Performed By: #### L AB17, LAB67, LAB69, LAB18, DRT938, LAB68 ####Cinetechnician: EMERSON LIMON ([id number])[facility] (SWRLAB)[address] [place] [address] Glucose [Mass/Vol] 96 mg/dL Normal 70-100 [facility] Comment on above: Order Comment: These orders are set for an approximate date - they can be drawn up to 3 months prior to the Expected Date on this Req.Please send results to: Chris Rosa MD - [address] [facility] 105[facility] [phone] - [phone] if not done at a [facility], please send to:[address], [address]Xpyfn: [phone] Etxsaxb Name: Laquita Coats 1975Order Created by : Rhona Shankar MA Performed By: #### L AB17, LAB67, LAB69, LAB18, AWZ864, LAB68 ####Cinetechnician: EMERSON LIMON ([id number])[facility] (SWRLAB)[address] [place] [address] Potassium [Moles/Vol] 4.3 mmol/L Normal 3.5-5.1 [facility] Comment on above: Order Comment: These orders are set for an approximate date - they can be drawn up to 3 months prior to the Expected Date on this Req.Please send results to: Chris Rosa MD - [address] [facility] 105[facility] [phone] - [phone] if not done at a [facility], please send to:[address], [address]Qpmhi: [phone] Htujmvd Name: Laquita Coats 1975Order Created by : Rhona Shankar MA Performed By: #### L AB17, LAB67, LAB69, LAB18, [id number], LAB68 ####Cinetechnician: EMERSON LIMON ([id number])[facility] (SWRLAB)[address] [place] [address] Protein [Mass/Vol] 6.8 g/dL Normal 6.3-8.2 [facility] Comment on above: Order Comment: These orders are set for an approximate date - they can be drawn up to 3 months prior to the Expected Date on this Req.Please send results to: Chris Rosa MD - [address] [phone] - [phone] if not done at a [facility], please send to:[address] [address]Xqzkl: [phone] Hkjyoml Name: Laquita Choudhury 1975Order Created by : Rhona Shankar MA Performed By: #### L AB17, LAB67, LAB69, LAB18, THQ994, LAB68 ####Cinetechnician: EMERSON LIMON ([id number])[facility] [place] [facility] (SWRLAB)[address] [place] [address] Sodium [Moles/Vol] 139 mmol/L Normal 135-145 [facility] Comment on above: Order Comment: These orders are set for an approximate date - they can be drawn up to 3 months prior to the Expected Date on this Req.Please send results to: Chris Rosa MD - [address] [facility] 105[facility] [phone] - [phone] if not done at a [facility], please send to:[address], [address]Bzmfm: [phone] Rnqukvk Name: Laquita Coats 1975Order Created by : Rhona Shankar MA Performed By: #### L AB17, LAB67, LAB69, LAB18, [id number], LAB68 ####Cinetechnician: EMERSON LIMON ([id number])[facility] (SWRLAB)[address] Urea nitrogen [Mass/Vol] 20 mg/dL High 7-17 [facility] Comment on above: Order Comment: These orders are set for an approximate date - they can be drawn up to 3 months prior to the Expected Date on this Req.Please send results to: Chris Rosa MD - [address] [facility] 105[facility] [address] - [phone] if not done at a [facility], please send to:[address], [facility] 260 [facility], [address]Gypma: [phone] Nfqynty Name: Laquita Choudhury - 1975Order Created by : Rhona Shankar MA Performed By: #### L AB17, LAB67, LAB69, LAB18, TBM521, LAB68 ####Cinetechnician: EMERSON LIMON ([id number])[facility] (SWRLAB)[address] [place] [address] Comprehensive metabolic 1998 panelon 12-20-2022 Albumin [Mass/Vol] 4.0 g/dL 3.5 - 5.0 g/dL [facility] ALP [Catalytic activity/Vol] 56 U/L 38 - 126 U/L [facility] ALT [Catalytic activity/Vol] 106 U/L High 0 - 34 U/L [facility] Anion gap [Moles/Vol] 7 mmol/L 3 - 13 mmol/L [facility] AST [Catalytic activity/Vol] 34 U/L 15 - 46 U/L [facility] Bilirubin [Mass/Vol] 0.2 mg/dL 0.2 - 1 .3 mg/dL [facility] Calcium [Mass/Vol] 9.0 mg/dL 8.4 - 10. 4 mg/dL [facility] Chloride [Moles/Vol] 104 mmol/L 98 - 10 7 mmol/L [facility] CO2 [Moles/Vol] 28 mmol/L 22 - 30 mmol/L [facility] Creatinine [Mass/Vol] 0.77 mg/dL 0.52 - 1.04 mg/dL [facility] GFR/1.73 sq M.predicted MDRD (S/P/Bld) [Vol rate/Area] - [facility] Comment on above: Calculation based on the Chronic Kidney Disease Epidemiology Collaboration (CKD-EPI) equation refit without adjustment for race Glucose [Mass/Vol] 96 mg/dL 70 - 100 mg/dL [facility] Potassium [Moles/Vol] 4.3 mmol/L 3.5 - 5.1 mmol/L [facility] Protein [Mass/Vol] 6.8 g/dL 6.3 - 8.2 g/dL [facility] Sodium [Moles/Vol] 139 mmol/L 135 - 145 mmol/L [facility] Urea nitrogen [Mass/Vol] 20 mg/dL High 7 - 17 mg/dL [facility] FERRITINon 12-20-2022 Ferritin [Mass/Vol] 8 ng/mL Normal 6-137 [facility] Comment on above: Order Comment: These orders are set for an approximate date - they can be drawn up to 3 months prior to the Expected Date on this Req.Please send results to: Chris Rosa MD - [address] [address] - [phone] if not done at a [facility], please send to:[facility] [address], [address], [address]Hapmn: [phone] Fuuiauk Name: Laquita Choudhury - 1975Order Created by : Rhona Shankar MA Performed By: #### L AB17, LAB67, LAB69, LAB18, [id number], LAB68 ####Cinetechnician: EMERSON LIMON ([id number])[facility] ([address] FOLATEon 12-20-2022 FOLATE 14.4 ng/mL Normal >=2.9 [facility] Comment on above: Order Comment: These orders are set for an approximate date - they can be drawn up to 3 months prior to the Expected Date on this Req.Please send results to: Chris Rosa MD - [address] [facility] 105[facility] [phone] - [phone] if not done at a [facility], please send to:[address], [address], [address]Wnbgd: [phone] Drtezgh Name: Laquita Choudhury - 1975Order Created by : Rhona Shankar MA Performed By: #### L AB17, LAB67, LAB69, LAB18, [id number], LAB68 ####Cinetechnician: EMERSON LIMON ([id number])[facility] ClassDojoAN (SWRLAB)[address] [place] [address] Ferritinon 12-20-2022 Ferritin [Mass/Vol] 8 ng/mL 6 - 137 ng/mL [facility] Ferritin [Mass/Vol]on 2022 Interpretation and review of laboratory results Normal [facility] Folateon 12-20-2022 Folate [Mass/Vol] 14.4 ng/mL 2.9 - PINF ng/mL [facility] IRONon 12-20-2022 IRON, TOTAL 44 ug/dL Normal 37-170 [facility] Comment on above: Order Comment: These orders are set for an approximate date - they can be drawn up to 3 months prior to the Expected Date on this Req.Please send results to: Chris Rosa MD - [address] [facility] 105[facility] [id number] - [phone] if not done at a [facility], please send to:[facility] - [address] [place] [address], [address], [address]Jiyvc: [phone] Ixkfczq Name: Laquita Choudhury - 1975Order Created by : Rhona Shankar MA Performed By: #### L AB94 ####Cinetechnician: EMERSON LIMON ([id number])[facility] (SWRLAB)[address] [place] [address] Iron and Iron binding capaci ty panelon 12-20-2022 Interpretation and review of laboratory results Normal [facility] Iron [Mass/Vol] 44 ug/dL 37 - 170 ug/dL [facility] LIPID PANELon 12-20-2022 Cholesterol [Mass/Vol] 204 mg/dL High <200 [facility] Comment on above: Order Comment: These orders are set for an approximate date - they can be drawn up to 3 months prior to the Expected Date on this Req.Please send results to: Chris Rosa MD - [address] [address] - [phone] if not done at a [facility], please send to:[facility] - [address] [place] [address], [address]Cswea: [phone] Mwehmhl Name: Laquita Choudhury 1975Order Created by : Rhona Shankar MA Performed By: #### L AB17, LAB67, LAB69, LAB18, IEM477, LAB68 ####Cinetechnician: EMERSON LIMON ([id number])[facility] (SWLAB[address] Cholesterol in HDL [Mass/Vol] 63 mg/dL High 40-60 [facility] Comment on above: Order Comment: These orders are set for an approximate date - they can be drawn up to 3 months prior to the Expected Date on this Req.Please send results to: Chris Rosa MD - [address] [facility] 105[facility] [phone] - [phone] if not done at a [facility], please send to:[address], [address], [address]Xdqvk: [phone] Pfmqibf Name: Laquita Choudhury 1975Order Created by : Rhona Shankar MA Performed By: #### L AB17, LAB67, LAB69, LAB18, CJT555, LAB68 ####Cinetechnician: EMERSON LIMON ([id number])[facility] (SWRLAB)[address] Cholesterol.total/Chol esterol in HDL [Mass ratio] 3 {ratio} Normal [facility] Comment on above: Order Comment: These orders are set for an approximate date - they can be drawn up to 3 months prior to the Expected Date on this Req.Please send results to: Chris Rosa MD - [address] [id number] - [phone] if not done at a [facility], please send to:[facility] - [address] [place] [address], [address], [address]Iiidj: [phone] Vnvhank Name: Laquita Coats 1975Order Created by : Rhona Shankar MA Result Comment: Ref Range: < 3 Low Risk for CHD 3-6 Mod Risk for CHD > 6 High Risk for CHD Performed By: #### L AB17, LAB67, LAB69, LAB18, HAH116, LAB68 ####Cinetechnician: EMERSON LIMON ([id number])[facility] (SWRLAB)[address] LOW DENSITY LIPOPROTEIN 110 mg/dL High 0-<100 [facility] Comment on above: Order Comment: These orders are set for an approximate date - they can be drawn up to 3 months prior to the Expected Date on this Req.Please send results to: Chris Rosa MD - [address] [facility] 105[facility] [phone] - [phone] if not done at a [facility], please send to:[facility] - [address] [place] [address], [address] [place] [address], [address]Mijjz: [phone] Suuelas Name: Laquita Coats 1975Order Created by : Rhona Shankar MA Performed By: #### L AB17, LAB67, LAB69, LAB18, GKR949, LAB68 ####Cinetechnician: EMERSON LIMON ([id number])[facility] (SW[facility]AB)[address] Triglyceride [Mass/Vol] 157 mg/dL High <150 [facility] Comment on above: Order Comment: These orders are set for an approximate date - they can be drawn up to 3 months prior to the Expected Date on this Req.Please send results to: Chris Rosa MD - [address] [facility] 105[facility] [address] - [phone] if not done at a [facility], please send to:[facility] [place] - [address] [place] [address], [address] [facility], [address]Yylwm: [phone] Rbdhdjx Name: Laquita Choudhury - 1975Order Created by : Rhona Shankar MA Performed By: #### L AB17, LAB67, LAB69, LAB18, WKA610, LAB68 ####Cinetechnician: EMERSON LIMON ([id number])[facility] (SWRLAB)[address] Lipid 1996 panelon 3 Cholesterol [Mass/Vol] 204 mg/dL High NINF - 200 mg/dL [facility] Cholesterol in HDL [Mass/Vol] 63 mg/dL High 40 - 60 mg/dL [facility] Cholesterol in LDL [Mass/Vol] 110 mg/dL High 0 - <100 [facility] Cholesterol.total/Chol esterol in HDL [Mass ratio] 3 {ratio} [facility] Comment on above: Ref Range: < 3 Low Risk for CHD 3-6 Mod Risk for CHD > 6 High Risk for CHD Triglyceride [Mass/Vol] 157 mg/dL High NINF - 150 mg/dL [facility] MAGNESIUMon 12-20-2022 Magnesium [Mass/Vol] 2.0 mg/dL Normal 1.6-2.3 [facility] Comment on above: Order Comment: These orders are set for an approximate date - they can be drawn up to 3 months prior to the Expected Date on this Req.Please send results to: Chris Rosa MD - [address] [facility] 105[facility] [address] - [phone] if not done at a [facility], please send to:[facility] - [address] [place] [address], [address], [address]Wytiw: [phone] Luivvrd Name: Laquita Choudhury - 1975Order Created by : Rhona Shankar MA Performed By: #### L AB17, LAB67, LAB69, LAB18, [id number], LAB68 ####Cinetechnician: EMERSON LIMON ([id number])[facility] (SWRLAB)[address] [place] [address] Magnesiumon 12-20-2022 Magnesium [Mass/Vol] 2.0 mg/dL 1.6 - 2 .3 mg/dL [facility] Magnesium [Mass/Vol]on 12-20 Interpretation and review of laboratory results Normal [facility] No Panel Informationon 12-20 Interpretation and review of laboratory results Normal [facility] Interpretation and review of laboratory results Abnormal [facility] VITAMIN B1, WHOLE BLOODon VITAMIN B1,WHOLE BLOOD 109 nmol/L Normal 70-180 [facility] Comment on above: Order Comment: These orders are set for an approximate date - they can be drawn up to 3 months prior to the Expected Date on this Req.Please send results to: Chris Rosa MD - [address] [facility] 105[facility] [address] - [phone] if not done at a [facility], please send to:[facility] - [address] [place] [address], [address], [address]Uapml: [phone] Kybckqy Name: Laquita Choudhury - 1975Order Created by : Rhona Shankar MA Result Comment: INTE RPRETIVE INFORMATION: Vitamin B1, Whole Blood This assay measures the concentration of thiamine diphosphate (TDP), the primary active form of vitamin B1. Approximately 90 percent of vitamin B1 present in whole blood is TDP. Thiamine and thiamine monophosphate, which comprise the remaining 10 percent, are not measured. This test was developed and its performance characteristics determined by [employer]. It has not been cleared or approved by the [place] Food and Drug Administration. This test was performed in a CLIA certified laboratory and is intended for clinical purposes. Performed By: [employer] [address] [place] [address] Glycerin Operator: Raffaele Kerr MD, PhD CLIA Number: [id number] Performed By: #### L AB745 ####[facility] ([facility])[address] [place] [address] [facility] VITAMIN B12on 12-20-2022 Cobalamin (Vitamin B12) [Mass/Vol] 931 pg/mL Normal 239-931 [facility] Comment on above: Order Comment: These orders are set for an approximate date - they can be drawn up to 3 months prior to the Expected Date on this Req.Please send results to: Chris Rosa MD - [address] [facility] 105[facility] [phone] - [phone] if not done at a [facility], please send to:[address], [place] [address]Phone: Loqnttv Name: Laquita Choudhury - 1975Order Created by : Rhona Shankar MA Performed By: #### L AB17, LAB67, LAB69, LAB18, [id number], LAB68 ####Cinetechnician: EMERSON LIMON ([id number])[facility] (SWRLAB[address] VITAMIN D DEFICIENCY SCREENI NG (VIT D 25)on 12-20-2022 VIT D 25-OH, TOTAL 68 ng/mL Normal 30-100 [facility] Comment on above: Order Comment: These orders are set for an approximate date - they can be drawn up to 3 months prior to the Expected Date on this Req.Please send results to: Chris Rosa MD - [address] [facility] 105[facility] [address] - [phone] if not done at a [facility], please send to:[facility] - [address] [facility], [address] [facility], [address]Tmxlt: [phone] Dagxjcm Name: Laquita Choudhury - 1975Order Created by : Rhona Shankar MA Result Comment: ORDE R COMMENTS: Therapy is based on measurement of Total 25-OHD with the following classification levels: Less than 20 ng/mL: Indicative of Vit D deficiency 20-30 ng/mL: Suggests Vit D insufficiency Optimal: Greater than or equal to 30 ng/mL Test performed by [employer] Competitive Immunoassay, measuring Total Vitamin D, not individual fractions. Performed By: #### L AB535 ####Cinetechnician: JORGE GONZALEZ ([id number])[facility] (SBHLAB)[address] [place] [address] Vitamin B12on 12-20-2022 Cobalamin (Vitamin B12) [Mass/Vol] 931 pg/mL 239 - 931 pg/mL [facility] Vitamin D 25 hydroxyon 12-20 25-hydroxyvitamin D3 [Mass/Vol] 68 ng/mL 30 - 100 ng/mL [facility] ZINCon 12-20-2022 ZINC, SERUM 80.4 ug/dL Normal 60.0-120.0 [facility] Comment on above: Order Comment: These orders are set for an approximate date - they can be drawn up to 3 months prior to the Expected Date on this Req.Please send results to: Chris Rosa MD - [address] [facility] 105[facility] [address] - [phone] if not done at a [facility], please send to:[facility] - [address] [facility], [address] [facility], [address]Jlbep: [phone] Ydwwjpr Name: Laquita Choudhury - 1975Order Created by : Rhona Shankar MA Result Comment: INTE RPRETIVE INFORMATION: Zinc, Serum or Plasma Elevated results may be due to skin or collection-related contamination, including the use of a noncertified metal-free collection/transport tube. If contamination concerns exist due to elevated levels of serum/plasma zinc, confirmation with a second specimen collected in a certified metal-free tube is recommended. Circulating zinc concentrations are dependent on albumin status and are depressed with malnutrition. Zinc may also be lowered with infection, inflammation, stress, oral contraceptives, and . Zinc may be elevated with zinc supplementation or fasting. Elevated zinc concentrations may interfere with copper absorption. This test was developed and its performance characteristics determined by [employer]. It has not been cleared or approved by the US Food and Drug Administration. This test was performed in a CLIA certified laboratory and is intended for clinical purposes. Performed By: [employer] [address] [place] [address] Glycerin Operator: Raffaele Kerr MD, PhD CLIA Number: [id number] Performed By: #### L AB581 ####[facility] ([facility])[address] [place] [id number] [facility] 36on 10-31-2022 36 DOS 05/24/2022 LSG AD. Last OV-08/30/22 with CELLAR WORKER, next 12/27/22 with CELLAR WORKER Therapy complete after 6 months POP tx. Original rx contained enough refills to complete therapy. Order declined. Normal [facility] [id number] 10-27-2022 [id number] DOS 05/24/2022 LSG AD. Last OV-08/30/22 with CELLAR WORKER, next 12/27/22 with CELLAR WORKER Mychart message to pt for additional information. Will await pt response. Normal [facility] Absolute lymphocyte countOrd ered By: Chris Rosa on 10-25-2022 Lymphocytes Auto (Unsp spec) [#/Vol] 1.67 10*3/uL 0.83-4.51 [facility] Basophil percentageOrdered B y: Chris Rosa on 10-25-2022 Basophils/100 WBC (Bld) 0.2 % 0-1 [facility] Bilirubin [Mass/Vol] 0.20 mg/dL 0.20-1.00 [facility] Comment on above: For patients on eltr ombopag therapy, use of [employer] TBIL is not recommended. Chloride [Moles/Vol] 107 mmol/L 98-107 [facility] Cholesterol [Mass/Vol] 190 mg/dL <200 [facility] Comment on above: <200 mg/dL Desirable 200-240 mg/dL Borderline >240 mg/dL High Risk Eosinophils/100 WBC (Bld) 3.6 % 0-5 [facility] Glucose [Mass/Vol] 92 mg/dL 74-106 [facility] Neutrophils (Bld) [#/Vol] 3.1 10*3/uL 2.0-7.7 [facility] Neutrophils/100 WBC (Bld) 58.2 % 47-70 [facility] Potassium [Moles/Vol] 4.0 mmol/L 3.5-5.1 [facility] Protein [Mass/Vol] 6.7 g/dL 6.4-8.2 [facility] Sodium [Moles/Vol] 140 mmol/L 136-145 [facility] Triglyceride [Mass/Vol] 115 mg/dL <199 [facility] Comment on above: The drugs N-Acetylcy steine and Metamizole may falsely depress this assay.Serum Triglycerides Reference Interval Normal <150 mg/dL Borderline high 150 - 199 mg/dL High 200 - 499 mg/dL Very High > or = 500 mg/dL WBC (Bld) [#/Vol] 5.3 10*3/uL 4.4-11.0 [facility] Blood erythrocytes count (nu mber/volume)Ordered By: Chris Rosa on 10-25-2022 RBC (Bld) [#/Vol] 4.15 10*6/uL 4.2-5.4 [facility] Blood hemoglobin measurement (mass/volume)Ordered By: Chris Rosa on 10-25-2022 Hemoglobin (Bld) [Mass/Vol] 12.3 g/dL 12.0-15.0 [facility] Blood lymphocytes/100 leukoc ytesOrdered By: Chris Rosa on 10-25-2022 Lymphocytes/100 WBC (Bld) 31.7 % 19-41 [facility] Blood monocytes/100 leukocyt esOrdered By: Chris Rosa on 10-25-2022 Monocytes/100 WBC (Bld) 5.9 % 0-10 [facility] Blood platelet mean volumeOr dered By: Chris Rosa on 10-25-2022 Platelet mean volume (Bld) [Entitic vol] 12.6 fL 6.2-12.0 [facility] Determination of erythrocyte mean corpuscular volume (MCV)Ordered By: Chris Rosa on 10-25-2022 MCV (RBC) [Entitic vol] 92.8 fL 81-99 [facility] Hematocrit Auto (Bld) [Volum e fraction]Ordered By: Chris Rosa on 10-25-2022 Hematocrit (Bld) [Volume fraction] 38.5 % 37-47 [facility] Laboratory - Chemistry and C hemistry - challengeOrdered By: Chris Rosa on 10-25-2022 ALP [Catalytic activity/Vol] 66 U/L 45-117 [facility] ALT [Catalytic activity/Vol] 27 U/L 13-56 [facility] CO2 [Moles/Vol] 28.0 mmol/L 21.0-32.0 [facility] Globulin (S) [Mass/Vol] 3.2 g/dL 2.2-4.2 [facility] Urea nitrogen/Creatinine [Mass ratio] 20.7 mg/mg 10-20 [facility] Laboratory - Hematology and Cell countsOrdered By: Chris Rosa on 10-25-2022 Erythrocyte distribution width (RBC) [Entitic vol] 45.4 fL 35.1-43.9 [facility] Erythrocyte distribution width (RBC) [Ratio] 13.2 % 11.6-14.6 [facility] Immature granulocytes/100 WBC (Bld) 0.400 % 0.0-0.9 [facility] Comment on above: IG% - Immature Granu locytes (promyelocytes, myelocytes and metamyelocytes) > 1% indicates that a LEFT SHIFT is Present. MCH (RBC) [Entitic mass] 29.6 pg 27.0-32.0 [facility] Nucleated RBC/100 WBC (Bld) [Ratio] 0 % 0-5 [facility] MCHC Auto (RBC) [Mass/Vol]Or dered By: Chris Rosa on 10-25-2022 MCHC (RBC) [Mass/Vol] 31.9 g/dL 32-36 [facility] No Panel InformationOrdered By: Chris Rosa on 10-25-2022 Estimated GFR (MDRD) Amer 120 mL/min >60 [facility] Comment on above: GFR Calc Estimated GFR (MDRD) Non-Af Amer 99 mL/min >60 [facility] Comment on above: Non- GFR Calc Vitamin D 25-Hydroxy 67.0 ng/mL [facility] Comment on above: Vitamin D 25(OH) Sta tus Range Deficiency <20 ng/mL (50nmol/L) Insufficiency 20 - 30 ng/mL (50 - 75 nmol/L) Sufficiency 30 - 100 ng/mL (75 - 250 nmol/L) Toxicity >100 ng/mL (>250 nmol/L) Platelets bldOrdered By: Bonifacio Rosa on 10-25-2022 Platelets (Bld) [#/Vol] 237 10*3/uL 150-450 [facility] Serum or plasma albumin elicia urement (mass/volume)Ordered By: Chris Rosa on 10-25-2022 Albumin [Mass/Vol] 3.5 g/dL 3.2-5.0 [facility] Serum or plasma albumin/glob ulin mass ratioOrdered By: Chris Rosa on 10-25-2022 Albumin/Globulin [Mass ratio] 1.1 {ratio} 0.9-2.4 [facility] Serum or plasma calcium elicia urement (mass/volume)Ordered By: Chris Rosa on 10-25-2022 Calcium [Mass/Vol] 8.6 mg/dL 8.5-10.1 [facility] Serum or plasma cholesterol in HDL measurement (mass/volume)Ordered By: Chris Rosa on 10-25-2022 Cholesterol in HDL [Mass/Vol] 55 mg/dL >40 [facility] Comment on above: The drugs N-Acetylcy steine and Metamizole may falsely depress this assay. Reference Range HDL <40 mg/dL Low HDL Cholesterol HDL >or= 60 mg/dL High HDL Cholesterol Serum or plasma cholesterol in VLDL measurement (mass/volume)Ordered By: Chris Rosa on 10-25-2022 Cholesterol in VLDL [Mass/Vol] 23 mg/dL 5-40 [facility] Serum or plasma creatinine m easurement (mass/volume)Ordered By: Chris Rosa on 10-25-2022 Creatinine [Mass/Vol] 0.68 mg/dL 0.55-1.02 [facility] Comment on above: The validity of the calculated GFR & GFRAA in patients over 70 years has not been determined. Clinical correlation is essential. Serum or plasma low density lipoprotein (LDL) cholesterol measurement (mass/volume)Ordered By: Chris Rosa on 10-25-2022 Cholesterol in LDL [Mass/Vol] 112 mg/dL 0-130 [facility] Serum or plasma urea nitroge n measurement (mass/volume)Ordered By: Chris Rosa on 10-25-2022 Urea nitrogen [Mass/Vol] 14 mg/dL 7-18 [facility] Thin prep Papanicolaou smear with manual screeningOrdered By: Chris Rosa on 10-25-2022 Thin prep Papanicolaou smear with manual screening 19 U/L 15-37 [facility] Thin prep Papanicolaou smear with manual screening 5 5-15 [facility] Whole blood hemoglobin A1c/t otal hemoglobin ratio (mass fraction)Ordered By: Chris Rosa on 10-25-2022 HbA1c (Bld) [Mass fraction] 5.3 % 3.8-5.6 [facility] Comment on above: Normal < 5.7 % Predi abetic 5.7 - 6.4 % Diabetic >or= 6.5 % Please note range changes. 36on 09-01-2022 36 Sent pt MyChart mess age regarding low Zinc at 53.6. Pt to add 50 mg zinc daily. Med list has been updated. Labs will be rechecked again at 6 month follow up. Pt will be in for 3 month office visit today as well. Normal [facility] [place] 09-01-2022 Interpretation and review of laboratory results Abnormal [facility] Zinc [Mass/Vol] 53.6 ug/dL Low 60.0 - 120.0 ug/dL [facility] Comment on above: INTERPRETIVE INFORMA TION: Zinc, Serum or Plasma Elevated results may be due to skin or collection-related contamination, including the use of a noncertified metal-free collection/transport tube. If contamination concerns exist due to elevated levels of serum/plasma zinc, confirmation with a second specimen collected in a certified metal-free tube is recommended. Circulating zinc concentrations are dependent on albumin status and are depressed with malnutrition. Zinc may also be lowered with infection, inflammation, stress, oral contraceptives, and . Zinc may be elevated with zinc supplementation or fasting. Elevated zinc concentrations may interfere with copper absorption. This test was developed and its performance characteristics determined by [employer]. It has not been cleared or approved by the [place] Food and Drug Administration. This test was performed in a CLIA certified laboratory and is intended for clinical purposes. Performed By: [facility] [address] [place] [address] Glycerin Operator: Raffaele Kerr MD, PhD [facility] 36on 08-30-2022 36 Sent pt MyChart mess age regarding low Iron at 30 and ferritin at 9. H/H wnl. Pt is currently taking mvi with iron and 325 mg ferrous sulfate daily. Will increase to BID. Med list has been updated. Labs will be rechecked again at 6 month follow up. Pt will be in for 3 month office visit today as well. Normal [facility] 36 ----- Message from Kasey Baum NP sent at 08/30/2022 9:32 AM EDT ----- Low iron and ferritin. Thanks! Normal [facility] 36 DOS 05/24/2022 LSG AD. Last OV-06/29/22 with AGD, next 08/30/22 with [employer] Therapy complete after 3 months of treatment. Order declined as original RX contained enough refills to complete treatment. Normal [facility] Office Visiton 08-30-2022 Follow-up visit [id number] Laquita Choudhury 1975 F Date Provider Department Center 08/30/2022 [id number] WHARTON [facility] BCC SURG None Family History Problem Relation Age of Onset Obesity Mother Diabetes Mother Diabetes type II Mother Cancer Maternal Grandmother Family Status - Relation Status Age at Mother Maternal Grandmother Level of Service:10286 [place] OFFICE/OUTPATIENT ESTABLISHED LOW MDM 20-29 MIN Reason for Visit and Comments: Bariatrics Post Op Follow-up [884] - 3M Normal [facility] Progress Noteon 08-30-2022 Progress Note [facility] 3 MONTH POST-OPERATIVE DIETITIAN VISIT Date: 08/30/22 Patient's weight decreased by: 48 lbs Patient does consume 5-6 small meals daily Patient?s portions are adequate for current diet: ?-1 cup; 1/2c total Protein requirements discussed- currently consuming not tracking; estimates 65+ grams of protein daily. Current protein sources: protein powder, meats, nuts, cheese Recommendations: doing well Fluid requirements discussed. Current Fluid Intake: close to 64oz Patient does drink sugar-free, caffeine-free and carbonation-free fluids only. Patient does waiting 30 minutes before and after meals to drink Exercise activities discussed. Patient does currently exercising. She was reminded that regular exercise is critical part of a successful outcome following weight loss surgery. Behavioral/Emotional changes reviewed. Patient does feel comfortable with changes in eating behaviors and associated emotional changes. She was reminded that psychological counseling is available through the Bariatric Care Center post-operatively. Patient told she may switch to non-chewable vitamins and calcium citrate. Recent Nutrient Concerns and Vitamin Supplementation Changes: compliant with vitamins. Labs addressed by Ailyn JEWELL in TE 08/30. Pt agreeable to recommendations Notes/Comments: doing well, to call with any questions/concerns, track protein, increase fluids Visit completed by: Hetal Padgett RD [facility] Progress Note JARROD COLLAZO MD , [facility] MINIMALLY INVASIVE & METABOLIC / BARIATRIC SURGERY [facility] - 3 MONTH FOLLOW UP 08/30/2022 PATIENT: Laquita Choudhury DATE OF : 1975 HISTORY OF PRESENT ILLNESS Chief Complaint: 3 month follow-up status post laparoscopic SLEEVE GASTRECTOMY - aka SG Laquita Choudhury is a 47 y.o. female who presents to the bariatric care center today for their 3 month evaluation following bariatric surgery with Dr. Collazo. The total weight lost is 48 pounds for a 35 % EWL. Overall, the patient is satisfied with the weight loss and health benefits related to the bariatric intervention. Dietary compliance concerns: No Exercise and activity concerns: No Compliance and phychologic concerns: No Dysphagia and eating concerns: No Excessive skin concerns: No The patient is feeling well and denies any major complaints or GI symptoms. The dietary regimen and exercise activities are going well. The patient is compliant with protein intake and vitamin/trace element supplementation. Labs were Completed Laboratory results were LOW IRON, NORMAL HGB. Review of Symptoms Constitutional: negative for chills, fevers, night sweats Respiratory: negative for cough, dyspnea on exertion, hemoptysis, and sputum Cardiovascular: negative for chest pain, chest pressure/discomfort, dyspnea, irregular heart beat, palpitations, and syncope Gastrointestinal: negative for abdominal pain, diarrhea, dysphagia, melena, reflux symptoms, and vomiting Constipation occasionally. Neurological: negative for dizziness, paresthesia, seizures, and weakness PAST HISTORIES Past Medical History: Diagnosis Date Asthma Cancer (CMS/HCC) ([facility]) June 2020 COVID-19 vaccine series completed 02/03/2021 Hx of thyroid cancer Joint pain, hip Joint pain, knee Morbid obesity due to excess calories ([facility]) 09/28/2021 Muscle weakness Postoperative hypothyroidism Pre-diabetes Seasonal allergies SOB (shortness of breath) on exertion Past Surgical History: Procedure Laterality Date ANKLE FRACTURE SURGERY 1993 [place] APPENDECTOMY 2001 Edwin DILATION AND CURETTAGE OF UTERUS [id number] OVARIAN CYST REMOVAL Jamar SLEEVE GASTRECTOMY, LAPAROSCOPIC (HISTORICAL) 05/24/2022 Lap sleeve gastrectomy with liver wedge biopsy THYROIDECTOMY Bilateral 2020 Dr. Johnson - Edwin TONSILLECTOMY (HISTORICAL) 1980 [place] Family History Problem Relation Name Age of Onset Obesity Mother Derice Diabetes Mother Jadeice Diabetes type II Mother Derice Cancer Maternal Grandmother Laquita No Known Allergies Current Medications: Current Outpatient Medications Medication Sig Dispense Refill acetaminophen (Tylenol) 500 MG tablet Take 500 mg by mouth every 8 hours as needed for mild pain (1-3). albuterol 108 (90 Base) MCG/ACT inhaler Inhale 2 puffs every 4 hours as needed. Calcium Citrate-Vitamin D (CALCIUM CITRATE +D PO) Take 500 mg by mouth 3 times daily. cholecalciferol (D3-5) 5,000 Units tablet Take 1 tablet by mouth in the morning. cyanocobalamin (Vitamin B-12) 500 MCG tablet Take 500 mcg by mouth daily. Sublingual DULoxetine (Cymbalta) [address] capsule Take 60 mg by mouth in the morning. ferrous sulfate 325 (65 Fe) MG tablet Take 325 mg by mouth 2 times daily. levothyroxine (Synthroid, Levoxyl) 150 MCG tablet Take 150 mcg by mouth every morning (before breakfast). Five days weekly Multiple Vitamins-Iron (MULTIVITAMIN/IRON PO) Take 1 Dose by mouth daily. omeprazole (PriLOSEC) [address] capsule Take 1 capsule (20 mg) by mouth daily. Do not crush or chew. (Patient taking differently: Take 20 mg by mouth daily. Do not crush or chew.) 90 capsule 1 No current facility-administered medications for this visit. PHYSICAL EXAM BP 128/85 Pulse 94 Temp 36.7 ?C (98 ?F) Resp 16 Ht 5' 1 (1.549 m) Wt 193 lb (87.5 kg) BMI 36.47 kg/m? General: This patient is awake, alert, and oriented, with normal affect and is in no apparent distress. Cardiac: Regular rate and rhythm without evidence of murmur. Respiratory: Clear to auscultation bilaterally with normal effort. Abdomen: soft, non-tender, non-distended without masses/ No evidence of abdominal hernia / Incisions consistent with previous surgeries. Surgical sites: Clean dry and intact Head and Neck: normocephalic and atraumatic/soft and supple, no lymphadenopathy or obvious bruits. No thyroidmegaly. Extremities: No cyanosis, clubbing or edema/ No calf tenderness/No restrictions of movement, is ambulatory without assistance. Neurological: Intact x 4 extremities, normal sensation, no focal deficits notes. Skin: Skin cool, warm and dry. No rashes or lesions noted. Rectal: Deferred LABORATORY STUDIES AND IMAGING Laboratory Studies: Recent Labs 08/29/22 1608 NA 136 K 4.5 CL 103 CO2 28 BUN 17 CREATI (more content not included)... Normal [facility] CBC panel Auto (Bld)on 08-29 Erythrocyte distribution width (RBC) [Ratio] 13.6 % 11.5 - 14.5 % [facility] Hematocrit (Bld) [Volume fraction] 37.7 % 35.0 - 47.0 % [facility] Hemoglobin (Bld) [Mass/Vol] 12.4 g/dL 11.7 - 16.0 g/dL [facility] Interpretation and review of laboratory results Normal [facility] MCH (RBC) [Entitic mass] 29.3 pg 26.0 - 34.0 pg [facility] MCHC (RBC) [Mass/Vol] 32.9 % 32.0 - 36.0 % [facility] MCV (RBC) [Entitic vol] 89.1 fL 80.0 - 98.0 fL [facility] Platelet mean volume (Bld) [Entitic vol] 11.3 fL 7.4 - 12.4 fL [facility] Comment on above: MPV is a calculated measurement using platelet volume ratio Platelets (Bld) [#/Vol] 213 10*3/uL 140 - 440 10*3/uL [facility] RBC (Bld) [#/Vol] 4.23 10*6/uL 3.8 - 5.20 10*6/uL [facility] WBC (Bld) [#/Vol] 5.3 10*3/uL 3.6 - 10.7 10*3/uL [facility] Comprehensive metabolic 1998 panelon 08-29-2022 Albumin [Mass/Vol] 4.1 g/dL 3.5 - 5.0 g/dL [facility] ALP [Catalytic activity/Vol] 55 U/L 38 - 126 U/L [facility] ALT [Catalytic activity/Vol] 18 U/L 0 - 34 U/L [facility] Anion gap [Moles/Vol] 6 mmol/L 3 - 13 mmol/L [facility] AST [Catalytic activity/Vol] 21 U/L 15 - 46 U/L [facility] Bilirubin [Mass/Vol] 0.1 mg/dL Low 0.2 - 1 .3 mg/dL [facility] Calcium [Mass/Vol] 8.9 mg/dL 8.4 - 10. 4 mg/dL [facility] Chloride [Moles/Vol] 103 mmol/L 98 - 10 7 mmol/L [facility] CO2 [Moles/Vol] 28 mmol/L 22 - 30 mmol/L [facility] Creatinine [Mass/Vol] 0.68 mg/dL 0.52 - 1.04 mg/dL [facility] GFR/1.73 sq M.predicted MDRD (S/P/Bld) [Vol rate/Area] - PINF [facility] Comment on above: Calculation based on the Chronic Kidney Disease Epidemiology Collaboration (CKD-EPI) equation refit without adjustment for race Glucose [Mass/Vol] 102 mg/dL High 70 - 100 mg/dL [facility] Potassium [Moles/Vol] 4.5 mmol/L 3.5 - 5.1 mmol/L [facility] Protein [Mass/Vol] 6.8 g/dL 6.3 - 8.2 g/dL [facility] Sodium [Moles/Vol] 136 mmol/L 135 - 145 mmol/L [facility] Urea nitrogen [Mass/Vol] 17 mg/dL 7 - 17 mg/dL [facility] Ferritinon 08-29-2022 Ferritin [Mass/Vol] 9 ng/mL 6 - 137 ng/mL [facility] Ferritin [Mass/Vol]on 2022 Interpretation and review of laboratory results Normal [facility] Folateon 08-29-2022 Folate [Mass/Vol] 8.8 ng/mL 2.9 - PINF ng/mL [facility] Iron and Iron binding capaci ty panelon 08-29-2022 Iron [Mass/Vol] 30 ug/dL Low 37 - 170 ug/dL [facility] Magnesiumon 08-29-2022 Magnesium [Mass/Vol] 1.8 mg/dL 1.6 - 2 .3 mg/dL [facility] Magnesium [Mass/Vol]on 08-29 Interpretation and review of laboratory results Normal [facility] No Panel Informationon 08-29 Interpretation and review of laboratory results Normal [facility] Interpretation and review of laboratory results Abnormal [facility] Vitamin B12on 08-29-2022 Cobalamin (Vitamin B12) [Mass/Vol] 531 pg/mL 239 - 931 pg/mL [facility] Laboratory - Chemistry and C hemistry - challengeOrdered By: Dr. Adorno on 08-04-2022 Free T4 [Mass/Vol] 1.29 ng/dL 0.76-1.46 [facility] No Panel InformationOrdered By: Dr. Adorno on 08-04-2022 Thyroid Stimulating Hormone (TSH) 0.02 uIU/mL 0.358-3.74 [facility] 36on 07-14-2022 36 Pt had (paper) labs rechecked 07/13/22, K+ now wnl at 4.1 and iron improving at 28 and ferritin now wnl as pt has restarted ferrous sulfate 325 daily. Will cont to monitor at 3 month follow up. Normal [facility] Basophil percentageOrdered B y: Ekaterina Bridle on 05-24-2023 Bilirubin [Mass/Vol] 0.20 mg/dL 0.20-1.00 [facility] Comment on above: For patients on eltr ombopag therapy, use of [employer] TBIL is not recommended. Chloride [Moles/Vol] 109 mmol/L 98-107 [facility] Glucose [Mass/Vol] 110 mg/dL 74-106 [facility] Comment on above: Fasting Glucose resu lt from 100 to 125 mg/dL suggests IMPAIRED HOMEOSTASIS per A.D.A. criteria. Potassium [Moles/Vol] 4.1 mmol/L 3.5-5.1 [facility] Protein [Mass/Vol] 6.9 g/dL 6.4-8.2 [facility] Sodium [Moles/Vol] 143 mmol/L 136-145 [facility] WBC (Bld) [#/Vol] 4.8 10*3/uL 4.4-11.0 [facility] Blood erythrocytes count (nu mber/volume)Ordered By: Ekaterina Wharton on 07-13-2022 RBC (Bld) [#/Vol] 4.29 10*6/uL 4.2-5.4 [facility] Blood hemoglobin measurement (mass/volume)Ordered By: Ekaterinakasey Wharton on 07-13-2022 Hemoglobin (Bld) [Mass/Vol] 12.2 g/dL 12.0-15.0 [facility] Blood platelet mean volumeOr dered By: Ekaterinakasey Wharton on 07-13-2022 Platelet mean volume (Bld) [Entitic vol] 11.7 fL 6.2-12.0 [facility] Determination of erythrocyte mean corpuscular volume (MCV)Ordered By: Ekaterina Wharton on 07-13-2022 MCV (RBC) [Entitic vol] 90.7 fL 81-99 [facility] Hematocrit Auto (Bld) [Volum e fraction]Ordered By: Ekaterinakasey Wharton on 07-13-2022 Hematocrit (Bld) [Volume fraction] 38.9 % 37-47 [facility] Iron measurement (mass/mass) Ordered By: Ekaterinakasey Wharton on 07-13-2022 Iron (Unsp spec) [Mass/Mass] 28 ug/dL 50-170 [facility] Laboratory - Chemistry and C hemistry - challengeOrdered By: Ekaterina Wharton on 07-13-2022 ALP [Catalytic activity/Vol] 66 U/L 45-117 [facility] ALT [Catalytic activity/Vol] 25 U/L 13-56 [facility] CO2 [Moles/Vol] 23.0 mmol/L 21.0-32.0 [facility] Cobalamin (Vitamin B12) [Mass/Vol] 653 pg/mL 211-911 [facility] Globulin (S) [Mass/Vol] 3.3 g/dL 2.2-4.2 [facility] Magnesium [Mass/Vol] 2.1 mg/dL 1.6-2.6 [facility] Urea nitrogen/Creatinine [Mass ratio] 22.0 mg/mg 10-20 [facility] Laboratory - Hematology and Cell countsOrdered By: Ekaterina Wharton on 07-13-2022 Erythrocyte distribution width (RBC) [Entitic vol] 45.6 fL 35.1-43.9 [facility] Erythrocyte distribution width (RBC) [Ratio] 13.8 % 11.6-14.6 [facility] MCH (RBC) [Entitic mass] 28.4 pg 27.0-32.0 [facility] MCHC Auto (RBC) [Mass/Vol]Or dered By: Ekaterina Wharton on 07-13-2022 MCHC (RBC) [Mass/Vol] 31.4 g/dL 32-36 [facility] No Panel InformationOrdered By: Ekaterina Wharton on 07-13-2022 Estimated GFR (MDRD) Amer 129 mL/min >60 [facility] Comment on above: GFR Calc Estimated GFR (MDRD) Non-Af Amer 106 mL/min >60 [facility] Comment on above: Non- GFR Calc Platelets bldOrdered By: Jez Wharton on 07-13-2022 Platelets (Bld) [#/Vol] 273 10*3/uL 150-450 [facility] Serum or plasma albumin elicia urement (mass/volume)Ordered By: Ekaterina Wharton on 07-13-2022 Albumin [Mass/Vol] 3.6 g/dL 3.2-5.0 [facility] Serum or plasma albumin/glob ulin mass ratioOrdered By: Ekaterina Wharton on 07-13-2022 Albumin/Globulin [Mass ratio] 1.1 {ratio} 0.9-2.4 [facility] Serum or plasma calcium elicia urement (mass/volume)Ordered By: Ekaterina Wharton on 07-13-2022 Calcium [Mass/Vol] 8.9 mg/dL 8.5-10.1 [facility] Serum or plasma creatinine m easurement (mass/volume)Ordered By: Ekaterina Wharton on 07-13-2022 Creatinine [Mass/Vol] 0.64 mg/dL 0.55-1.02 [facility] Comment on above: The validity of the calculated GFR & GFRAA in patients over 70 years has not been determined. Clinical correlation is essential. Serum or plasma ferritin cornelia surement (mass/volume)Ordered By: Ekaterina Wharton on 07-13-2022 Ferritin [Mass/Vol] 14 ng/mL 8-252 [facility] Serum or plasma folate measu rement (mass/volume)Ordered By: Ekaterina Wharton on 07-13-2022 Folate [Mass/Vol] 17.60 ng/mL 3.1-55.4 [facility] Serum or plasma urea nitroge n measurement (mass/volume)Ordered By: Ekaterinakasey Wharton on 07-13-2022 Urea nitrogen [Mass/Vol] 14 mg/dL 7-18 [facility] Serum or plasma zinc measure ment (mass/volume)Ordered By: Ekaterinakasey Wharton on 07-13-2022 Zinc [Mass/Vol] 70 ug/dL 44-115 [facility] Comment on above: Detection Limit = 5P erformed at: - [facility] [id number] [place], [place] [id number] Director: Rafia Paz MD, Phone: [phone] Thin prep Papanicolaou smear with manual screeningOrdered By: Ekaterina Wharton on 07-13-2022 Thin prep Papanicolaou smear with manual screening 17 U/L 15-37 [facility] Thin prep Papanicolaou smear with manual screening 11 5-15 [facility] ADDENDUMNOTEon 06-29-2022 ADDENDUMNOTE Addended by: KYLIE ARIAS on: 06/29/2022 01:35 PM Modules accepted: Orders Normal [facility] Office Visiton 06-29-2022 Follow-up visit [id number] Laquita Choudhury 1975 F Date Provider Department Center 06/29/2022 [id number] COLLAZO BCC SURG None Family History Problem Relation Age of Onset Obesity Mother Diabetes Mother Diabetes type II Mother Cancer Maternal Grandmother Family Status - Relation Status Age at Mother Maternal Grandmother Level of Service:76710 [place] POSTOP FOLLOW UP VISIT RELATED TO ORIGINAL PX Reason for Visit and Comments: Bariatrics Post Op Follow-up [884] - 1M Normal [facility] Potassiumon 06-29-2022 Potassium [Moles/Vol] 2.9 mmol/L Low 3.5 - 5.1 mmol/L [facility] Potassium [Moles/Vol]on 06-20 Interpretation and review of laboratory results Abnormal [facility] Progress Noteon 06-29-2022 Progress Note JARROD COLLAZO MD , F [facility] MINIMALLY INVASIVE & METABOLIC / BARIATRIC SURGERY [facility] MBS - 1 MONTH FOLLOW UP 06/29/22 PATIENT: Laquita Choudhury DATE OF : 1975 HISTORY OF PRESENT ILLNESS Chief Complaint: 1 month follow-up status post laparoscopic SLEEVE GASTRECTOMY - aka SG with HH Repair. Laquita Choudhury is a 47 y.o. female who presents to the bariatric care center today for their 1 month evaluation following bariatric surgery with Dr. Collazo. The total weight lost is 30.4 pounds for a 22 % EWL. Overall, the patient is satisfied with the weight loss and health benefits related to the bariatric intervention. Dietary compliance concerns: No Exercise and activity concerns: No Compliance and phychologic concerns: No Dysphagia and eating concerns: No Excessive skin concerns: No The patient is feeling well and denies any major complaints or GI symptoms. The dietary regimen and exercise activities are going well. The patient is compliant with protein intake and vitamin/trace element supplementation. Labs were Completed Laboratory results were Iron 27, K 3.0, Review of Symptoms Constitutional: negative for chills, fevers, night sweats Respiratory: negative for cough, dyspnea on exertion, hemoptysis, and sputum Cardiovascular: negative for chest pain, chest pressure/discomfort, dyspnea, irregular heart beat, palpitations, and syncope Gastrointestinal: negative for abdominal pain, constipation, diarrhea, dysphagia, melena, reflux symptoms, and vomiting Neurological: negative for dizziness, paresthesia, seizures, and weakness PAST HISTORIES Past Medical History: Diagnosis Date Asthma Cancer (CMS/HCC) ([facility]) June 2020 COVID-19 vaccine series completed 02/03/2021 Hx of thyroid cancer Joint pain, hip Joint pain, knee Morbid obesity due to excess calories ([facility]) 09/28/2021 Muscle weakness Postoperative hypothyroidism Pre-diabetes Seasonal allergies SOB (shortness of breath) on exertion Past Surgical History: Procedure Laterality Date ANKLE FRACTURE SURGERY 1993 [place] APPENDECTOMY 2001 Edwin DILATION AND CURETTAGE OF UTERUS [id number] OVARIAN CYST REMOVAL Jamar SLEEVE GASTRECTOMY, LAPAROSCOPIC (HISTORICAL) 05/24/2022 Lap sleeve gastrectomy with liver wedge biopsy THYROIDECTOMY Bilateral 2020 Dr. Johnson - Edwin TONSILLECTOMY (HISTORICAL) 1980 [place] Family History Problem Relation Name Age of Onset Obesity Mother Derice Diabetes Mother Derice Diabetes type II Mother Derice Cancer Maternal Grandmother Laquita No Known Allergies PHYSICAL EXAM There were no vitals taken for this visit. General: This patient is awake, alert, and oriented, with normal affect and is in no apparent distress. Cardiac: Regular rate and rhythm without evidence of murmur. Respiratory: Clear to auscultation bilaterally with normal effort. Abdomen: Obese, soft, non-tender, non-distended without masses/ No evidence of abdominal hernia / Incisions consistent with previous surgeries. Surgical sites: Clean dry and intact Head and Neck: Obese, normocephalic and atraumatic/soft and supple, no lymphadenopathy or obvious bruits. No thyroidmegaly. Extremities: No cyanosis, clubbing or edema/ No calf tenderness/No restrictions of movement, is ambulatory without assistance. Neurological: Intact x 4 extremities, normal sensation, no focal deficits notes. Skin: Skin cool, warm and dry. No rashes or lesions noted. Rectal: Deferred LABORATORY STUDIES AND IMAGING Laboratory Studies: No results for input(s): NA, K, CL, CO2, BUN, CREATININE, GLUCOSE, CALCIUM in the last 72 hours. No results for input(s): WBC, RBC, HGB, HCT, MCV, MCH, MCHC, RDW, PLT, MPV in the last 72 hours. No results for input(s): ALKPHOS, ALT, AST, PROT, BILITOT, BILIDIR, LIPASE in the last 72 hours. No lab exists for component: LABALBU ASSESSMENT 1 month status post SLEEVE GASTRECTOMY - aka SG Visit Diagnoses: No diagnosis found. PLAN 1). Compliance with exercise and dietary regimen (see dietitian recommendations) 2). Patient to follow up w/ PCP for follow for management of DM and HTN medications 3). Follow up for 1 month post-operative evaluation 4). Advance diet and begin supplements per RD note 5). Hypokalemia- Supplemented. Additional orders: 3 month lab-work No orders of the defined types were placed in this encounter. ATTESTATION I personally interviewed and examined the patient. I have reviewed their past medical, surgical, medication, allergy, social and family histories. I have performed an independent physical examination and have reviewed all pertinent laboratory and imaging results. I have reviewed with the patient my assessment of their condition as well as the treatment recommendations and the associated risks, benefits and options. (more content not included)... Normal [facility] Progress Note [facility] 1 MONTH POST-OPERATIVE DIETITIAN VISIT Date: 06/29/22 Current diet reviewed with patient. Soft and maintenance diets discussed and. handouts provided. Patient's weight decreased by: -30 lbs Patient consumes 5-6 small meals daily: Yes Patient?s portions are adequate for current diet: ? cup Protein requirements discussed- currently consuming 65+ grams of protein daily. Current protein sources: meats, cheese, eggs not always working Recommendations: na Fluid requirements discussed. Current Fluid Intake: 64 oz Patient drinks sugar-free, caffeine-free and carbonation-free fluids only. Patient waits 30 minutes before and after meals to drink Exercise activities discussed. Patient is currently exercising. She was reminded that regular exercise is critical part of a successful outcome following weight loss surgery. Behavioral/Emotional changes reviewed. Patient does feel comfortable with changes in eating behaviors and associated emotional changes. She was reminded that psychological counseling is available through the Bariatric Care Center post-operatively. The importance of vitamin supplements has been reviewed and the patient is taking the following: -Multivitamin with minerals and iron -Calcium -Vitamin B12 -Vitamin D3 -Other: Recent Nutrient Concerns and Vitamin Supplementation Changes: Pt has started back on ferrous sulfate and is increasing high K+ foods, will recheck soon Notes/Comments: Pt is doing great overall! Pt to call as needed with any issues or concerns that arise. Visit completed by: Ailyn Pollard RD [facility] 36on 06-24-2022 [address] [facility] Basic metabolic 1998 panelOr dered By: Humberto Drake on 05-25-2022 Anion gap [Moles/Vol] 6 mmol/L 3 - 13 mmol/L [facility] Calcium [Mass/Vol] 8.0 mg/dL Low 8.4 - 10. 4 mg/dL [facility] Chloride [Moles/Vol] 106 mmol/L 98 - 10 7 mmol/L [facility] CO2 [Moles/Vol] 25 mmol/L 22 - 30 mmol/L [facility] Creatinine [Mass/Vol] 0.68 mg/dL 0.52 - 1.04 mg/dL [facility] GFR/1.73 sq M.predicted MDRD (S/P/Bld) [Vol rate/Area] - PINF [facility] Comment on above: Calculation based on the Chronic Kidney Disease Epidemiology Collaboration (CKD-EPI) equation refit without adjustment for race Glucose [Mass/Vol] 186 mg/dL High 70 - 100 mg/dL [facility] Interpretation and review of laboratory results Abnormal [facility] Potassium [Moles/Vol] 4.9 mmol/L 3.5 - 5.1 mmol/L [facility] Sodium [Moles/Vol] 137 mmol/L 135 - 145 mmol/L [facility] Urea nitrogen [Mass/Vol] 10 mg/dL 7 - 17 mg/dL [facility] CBC W Auto Differential pane l (Bld)Ordered By: Kim Gonsalves on 05-25-2022 Basophils (Bld) [#/Vol] 0.0 10*3/uL 0.0 - 0.2 10*3/uL [facility] Basophils/100 WBC (Bld) 0.2 % 0.0 - 2.0 % [facility] Eosinophils (Bld) [#/Vol] 0.0 10*3/uL 0.0 - 0.5 10*3/uL [facility] Eosinophils/100 WBC (Bld) 0.0 % Low 1.0 - 6.0 % [facility] Erythrocyte distribution width (RBC) [Ratio] 15.1 % High 11.5 - 14.5 % [facility] Hematocrit (Bld) [Volume fraction] 37.9 % 35.0 - 47.0 % [facility] Hemoglobin (Bld) [Mass/Vol] 12.1 g/dL 11.7 - 16.0 g/dL [facility] Interpretation and review of laboratory results Abnormal [facility] Lymphocytes (Bld) [#/Vol] 0.6 10*3/uL Low 1.0 - 4.3 10*3/uL [facility] Lymphocytes/100 WBC (Bld) 9.5 % Low 20.0 - 40.0 % [facility] MCH (RBC) [Entitic mass] 28.2 pg 26.0 - 34.0 pg [facility] MCHC (RBC) [Mass/Vol] 31.8 % Low 32.0 - 36.0 % [facility] MCV (RBC) [Entitic vol] 88.5 fL 80.0 - 98.0 fL [facility] Monocytes (Bld) [#/Vol] 0.2 10*3/uL 0.0 - 0.8 10*3/uL [facility] Monocytes/100 WBC (Bld) 3.9 % 2.0 - 10.0 % [facility] Neutrophils (Bld) [#/Vol] 5.5 10*3/uL 1.8 - 7.0 10*3/uL [facility] Neutrophils/100 WBC (Bld) 86.4 % High 40.0 - 80.0 % [facility] Nucleated RBC/100 WBC (Bld) [Ratio] 0.0 % [facility] Platelet mean volume (Bld) [Entitic vol] 9.1 fL 7.4 - 12.4 fL [facility] Platelets (Bld) [#/Vol] 237 10*3/uL 140 - 440 10*3/uL [facility] RBC (Bld) [#/Vol] 4.28 10*6/uL 3.8 - 5.20 10*6/uL [facility] WBC (Bld) [#/Vol] 6.4 10*3/uL 3.6 - 10.7 10*3/uL [facility] XR Abdomen and RF Gastrointe stinal tract upper W contrast Brandon 05-25-2022 Postsurgical sleeve gastrectomy changes. No gastric obstruction or contrast extravasation. Linear basilar atelectasis. Report Dictated on Electronically Signed By: Delmis Castillo Electronically Signed Date/Time: 05/25/2022 10:22 AM EDT [facility] Patient Name: LAQUITA CHOUDHURY : 1975 Exam Date/Time: 05/25/2022 08:00 Procedure: FL UPPER GI WITH KUB Ordering Provider: COLLAZO ADRIAN Reason For Exam: post op sleeve GASTROGRAFIN UGI SERIES: History: Post op day one gastric sleeve, evaluate for leak. Fluoroscopy dose: Ka,r= 156.1mGy Findings: The exam was performed using Gastrografin which was administered to the patient's in the upright position. To the extent visualized, the esophagus is unremarkable. . The patient is status post laparoscopic sleeve gastrectomy with corresponding longitudinal resection of the stomach and remaining tubular stomach conduit noted. There is no contrast extravasation or leaks. There is prompt emptying of the gastric conduit into the duodenum without obstruction. There is limited visualization of linear basilar lung atelectasis.. [facility] Delmis Castillo MD - 05/25/2022 Patient Name: LAQUITA CHOUDHURY : 1975 Exam Date/Time: 05/25/2022 08:00 Procedure: FL UPPER GI WITH KUB Ordering Provider: COLLAZO ADRIAN Reason For Exam: post op sleeve GASTROGRAFIN UGI SERIES: History: Post op day one gastric sleeve, evaluate for leak. Fluoroscopy dose: Ka,r= 156.1mGy Findings: The exam was performed using Gastrografin which was administered to the patient's in the upright position. To the extent visualized, the esophagus is unremarkable. . The patient is status post laparoscopic sleeve gastrectomy with corresponding longitudinal resection of the stomach and remaining tubular stomach conduit noted. There is no contrast extravasation or leaks. There is prompt emptying of the gastric conduit into the duodenum without obstruction. There is limited visualization of linear basilar lung atelectasis.. IMPRESSION: Postsurgical sleeve gastrectomy changes. No gastric obstruction or contrast extravasation. Linear basilar atelectasis. Report Dictated on Electronically Signed By: Delmis Castillo Electronically Signed Date/Time: 05/25/2022 10:22 AM EDT [facility] Radiology Study observation (narrative) [facility] [employer] XR Abdomen and RF Gastrointe stinal tract upper W contrast POOrdered By: Delmis Castillo on 05-25-2022 [facility] [employer] Work Phone: Basic metabolic 1998 panelon 05-24-2022 Anion gap [Moles/Vol] 9 mmol/L 3 - 13 mmol/L [facility] [employer] Calcium [Mass/Vol] 8.1 mg/dL Low 8.4 - 10. 4 mg/dL [facility] [employer] Chloride [Moles/Vol] 105 mmol/L 98 - 10 7 mmol/L [facility] [employer] CO2 [Moles/Vol] 20 mmol/L Low 22 - 30 mmol/L [facility] Creatinine [Mass/Vol] 0.65 mg/dL 0.52 - 1.04 mg/dL [facility] GFR/1.73 sq M.predicted MDRD (S/P/Bld) [Vol rate/Area] - PINF [facility] Comment on above: Calculation based on the Chronic Kidney Disease Epidemiology Collaboration (CKD-EPI) equation refit without adjustment for race Glucose [Mass/Vol] 269 mg/dL High 70 - 100 mg/dL [facility] Interpretation and review of laboratory results Abnormal [facility] Potassium [Moles/Vol] 3.8 mmol/L 3.5 - 5.1 mmol/L [facility] Sodium [Moles/Vol] 134 mmol/L Low 135 - 145 mmol/L [facility] Urea nitrogen [Mass/Vol] 12 mg/dL 7 - 17 mg/dL [facility] HCG ( test) Ql (U)o n 05-24-2022 Beta HCG ( test) Ql (U) [id number] [facility] Interpretation and review of laboratory results Normal [facility] NEGATIVE QC Pass [facility] POSITIVE QC Pass [facility] Preg Test, Ur Negative Negative [facility] Hemoglobin (Bld) [Mass/Vol]O rdered By: Orianaamanda Zaragoza on 05-24-2022 Hematocrit (Bld) [Volume fraction] 34.4 % Low 35.0 - 47.0 % [facility] Interpretation and review of laboratory results Abnormal [facility] Laboratory - Hematology and Cell countsOrdered By: Oriana Zaragoza on 05-24-2022 Hemoglobin (Bld) [Mass/Vol] 11.2 g/dL Low 11.7 - 16.0 g/dL [facility] XR Chest 2 Viewson 3 No acute cardiopulmonary disease. Report Dictated on Electronically Signed By: Raffaele Bauman Electronically Signed Date/Time: 05/04/2022 2:07 PM EDT [facility] Patient Name: LAQUITA CHOUDHURY : 1975 Exam Date/Time: 05/04/2022 12:58 Procedure: XR CHEST 2 VIEWS Ordering Provider: WHARTON LEISA Reason For Exam: PREOPERATIVE EXAMINATION CHEST X-RAY PA/LATERAL CLINICAL INDICATION: PREOPERATIVE EXAMINATION Frontal and lateral plain films of the chest were obtained. COMPARISON: None FINDINGS: The cardiac silhouette is within normal limits. No focal consolidation is seen within the lungs. No pleural effusion or pneumothorax is identified. The bony structures of the chest are unremarkable as visualized for the patient's age. [facility] Raffaele Bauman MD - 05/04/2022 Patient Name: LAQUITA CHOUDHURY : 1975 Exam Date/Time: 05/04/2022 12:58 Procedure: XR CHEST 2 VIEWS Ordering Provider: WHARTON LEISA Reason For Exam: PREOPERATIVE EXAMINATION CHEST X-RAY PA/LATERAL CLINICAL INDICATION: PREOPERATIVE EXAMINATION Frontal and lateral plain films of the chest were obtained. COMPARISON: None FINDINGS: The cardiac silhouette is within normal limits. No focal consolidation is seen within the lungs. No pleural effusion or pneumothorax is identified. The bony structures of the chest are unremarkable as visualized for the patient's age. IMPRESSION: No acute cardiopulmonary disease. Report Dictated on Electronically Signed By: Raffaele Bauman Electronically Signed Date/Time: 05/04/2022 2:07 PM EDT [facility] [employer] Radiology Study observation (narrative) [facility] XR Chest 2 ViewsOrdered By: Raffaele Bauman on 05-04-2022 [employer] Work Phone: Absolute lymphocyte countOrd ered By: Dr. Rosa on 04-07-2022 Lymphocytes Auto (Unsp spec) [#/Vol] 1.65 10*3/uL 0.83-4.51 [facility] Basophil percentageOrdered B y: Dr. Rosa on 04-07-2022 Basophils/100 WBC (Bld) 0.2 % 0-1 [facility] Eosinophils/100 WBC (Bld) 2.9 % 0-5 [facility] Neutrophils (Bld) [#/Vol] 3.6 10*3/uL 2.0-7.7 [facility] Neutrophils/100 WBC (Bld) 61.2 % 47-70 [facility] WBC (Bld) [#/Vol] 5.9 10*3/uL 4.4-11.0 [facility] Blood erythrocytes count (nu mber/volume)Ordered By: Dr. Rosa on 04-07-2022 RBC (Bld) [#/Vol] 4.21 10*6/uL 4.2-5.4 [facility] Blood hemoglobin measurement (mass/volume)Ordered By: Dr. Rosa on 04-07-2022 Hemoglobin (Bld) [Mass/Vol] 11.6 g/dL 12.0-15.0 [facility] Blood lymphocytes/100 leukoc ytesOrdered By: Dr. Rosa on 04-07-2022 Lymphocytes/100 WBC (Bld) 27.9 % 19-41 [facility] Blood monocytes/100 leukocyt esOrdered By: Dr. Rosa on 04-07-2022 Monocytes/100 WBC (Bld) 7.3 % 0-10 [facility] Blood platelet mean volumeOr dered By: Dr. Rosa on 04-07-2022 Platelet mean volume (Bld) [Entitic vol] 11.8 fL 6.2-12.0 [facility] Determination of erythrocyte mean corpuscular volume (MCV)Ordered By: Dr. Rosa on 04-07-2022 MCV (RBC) [Entitic vol] 89.3 fL 81-99 [facility] Hematocrit Auto (Bld) [Volum e fraction]Ordered By: Dr. Rosa on 04-07-2022 Hematocrit (Bld) [Volume fraction] 37.6 % 37-47 [facility] Iron measurement (mass/mass) Ordered By: Dr. Rosa on 04-07-2022 Iron (Unsp spec) [Mass/Mass] 153 ug/dL 50-170 [facility] Laboratory - Hematology and Cell countsOrdered By: Dr. Rosa on 04-07-2022 Erythrocyte distribution width (RBC) [Entitic vol] 46.1 fL 35.1-43.9 [facility] Erythrocyte distribution width (RBC) [Ratio] 14.2 % 11.6-14.6 [facility] Immature granulocytes/100 WBC (Bld) 0.500 % 0.0-0.9 [facility] Comment on above: IG% - Immature Granu locytes (promyelocytes, myelocytes and metamyelocytes) > 1% indicates that a LEFT SHIFT is Present. MCH (RBC) [Entitic mass] 27.6 pg 27.0-32.0 [facility] Nucleated RBC/100 WBC (Bld) [Ratio] 0 % 0-5 [facility] MCHC Auto (RBC) [Mass/Vol]Or dered By: Dr. Rosa on 04-07-2022 MCHC (RBC) [Mass/Vol] 30.9 g/dL 32-36 [facility] No Panel InformationOrdered By: Dr. Rosa on 04-07-2022 Total Iron Binding Capacity 486 ug/dL 250-450 [facility] Platelets bldOrdered By: Dr. Rosa on 04-07-2022 Platelets (Bld) [#/Vol] 257 10*3/uL 150-450 [facility] Serum or plasma ferritin cornelia surement (mass/volume)Ordered By: Dr. Rosa on 04-07-2022 Ferritin [Mass/Vol] 6 ng/mL 8-252 [facility] ECG 12 lead - CLINIC PERFORM EDon 03-28-2022 Sinus Tachycardia WITHIN NORMAL LIMITS [facility] US Abdomenon 03-23-2022 No acute sonographic process identified. Hepatic echogenicity, which may reflect steatosis in the appropriate clinical setting. Correlate with liver function tests. Cholelithiasis without evidence of cholecystitis. Report Dictated on Electronically Signed By: Devante Chandler Electronically Signed Date/Time: 03/23/2022 8:48 AM [facility] Patient Name: LAQUITA CHOUDHURY Exam Date/Time: 03/23/2022 08:27 Procedure: US ABDOMEN COMPLETE Ordering Provider: WHARTON LEISA Reason For Exam: ULTRASOUND ABDOMEN COMPLETE CLINICAL INDICATION: Abdominal pain TECHNIQUE: Complete ultrasound of abdomen COMPARISON: None FINDINGS: Liver: Generalized increased echogenicity corresponding to fatty infiltration. Normal size and contour. No focal lesion identified. Gallbladder: Echogenic foci with wall echo shadow sign is noted in the gallbladder, compatible with cholelithiasis. No evidence of gallbladder wall thickening or pericholecystic fluid to suggest cholecystitis.. Bile ducts: Normal Common bile duct: 5.2 mm Pancreas: Visualized portions of the neck and body are normal in appearance. Right kidney: Normal parenchymal echogenicity without mass or hydronephrosis. Right Kidney Dimensions: 11.6 x 4.4 x 5.5 cm Left kidney: Normal parenchymal echogenicity without mass or hydronephrosis. Contour lobulation noted in the left kidney. Left Kidney Dimensions: 13.3 x 6.2 x 5.1 cm Spleen: Normal echogenicity and size. No mass identified. Spleen Dimensions: 10.8 x 2.9 x 10.5 cm Aorta and Inferior vena cava: Visualized portions are normal Ascites: None [facility] Devante Chandler MD - 03/23/2022 Patient Name: LAQUITA CHOUDHURY Exam Date/Time: 03/23/2022 08:27 Procedure: US ABDOMEN COMPLETE Ordering Provider: WHARTON LEISA Reason For Exam: ULTRASOUND ABDOMEN COMPLETE CLINICAL INDICATION: Abdominal pain TECHNIQUE: Complete ultrasound of abdomen COMPARISON: None FINDINGS: Liver: Generalized increased echogenicity corresponding to fatty infiltration. Normal size and contour. No focal lesion identified. Gallbladder: Echogenic foci with wall echo shadow sign is noted in the gallbladder, compatible with cholelithiasis. No evidence of gallbladder wall thickening or pericholecystic fluid to suggest cholecystitis.. Bile ducts: Normal Common bile duct: 5.2 mm Pancreas: Visualized portions of the neck and body are normal in appearance. Right kidney: Normal parenchymal echogenicity without mass or hydronephrosis. Right Kidney Dimensions: 11.6 x 4.4 x 5.5 cm Left kidney: Normal parenchymal echogenicity without mass or hydronephrosis. Contour lobulation noted in the left kidney. Left Kidney Dimensions: 13.3 x 6.2 x 5.1 cm Spleen: Normal echogenicity and size. No mass identified. Spleen Dimensions: 10.8 x 2.9 x 10.5 cm Aorta and Inferior vena cava: Visualized portions are normal Ascites: None IMPRESSION: No acute sonographic process identified. Hepatic echogenicity, which may reflect steatosis in the appropriate clinical setting. Correlate with liver function tests. Cholelithiasis without evidence of cholecystitis. Report Dictated on Electronically Signed By: Devante Chandler Electronically Signed Date/Time: 03/23/2022 8:48 AM EST [facility] Radiology Study observation (narrative) [facility] US AbdomenOrdered By: Devante Chandler on 03-23-2022 [employer] Work Phone: XR Abdomen and RF Gastrointe stinal tract upper W contrast Brandon 03-23-2022 Impression: Findings which may be seen with atrophic gastritis. Report Dictated on Electronically Signed By: Michaela Lovett Electronically Signed Date/Time: 03/23/2022 9:19 AM [employer] [facility] Patient Name: LAQUITA CHOUDHURY Exam Date/Time: 03/23/2022 08:18 Procedure: FL UPPER GI WITH KUB Ordering Provider: WHARTON LEISA Reason For Exam: Examination: Upper GI examination Indication: Presurgical evaluation Findings: Double contrasted upper GI examination was performed with effervescent granules and thick barium solution. Additional images were acquired with thin barium. There were 12 spot fluoroscopic images. Total fluoroscopy time was approximately 2 minutes and 25 sec. The visualized distal esophagus appears patent. There is free flow of contrast from the esophagus to the stomach, without gross mucosal irregularity or stricture. The contour of the stomach is unremarkable. There are decreased rugal fold markings. The visualized duodenum is grossly unremarkable. [facility] Michaela Lovett MD - 03/23/2022 [id number] Exam Date/Time: 03/23/2022 08:18 Procedure: FL UPPER GI WITH KUB Ordering Provider: WHARTON LEISA Reason For Exam: Examination: Upper GI examination Indication: Presurgical evaluation Findings: Double contrasted upper GI examination was performed with effervescent granules and thick barium solution. Additional images were acquired with thin barium. There were 12 spot fluoroscopic images. Total fluoroscopy time was approximately 2 minutes and 25 sec. The visualized distal esophagus appears patent. There is free flow of contrast from the esophagus to the stomach, without gross mucosal irregularity or stricture. The contour of the stomach is unremarkable. There are decreased rugal fold markings. The visualized duodenum is grossly unremarkable. IMPRESSION: Impression: Findings which may be seen with atrophic gastritis. Report Dictated on Electronically Signed By: Michaela Lovett Electronically Signed Date/Time: 03/23/2022 9:19 AM EST [facility] Study observation (narrative) [facility] XR Abdomen and RF Gastrointe stinal tract upper W contrast POOrdered By: Michaela Lovett on 03-23-2022 [facility] Work Phone: Basophil percentageOrdered B y: Ekaterina Wharton on 03-17-2022 Bilirubin [Mass/Vol] 0.20 mg/dL 0.20-1.00 [facility] Comment on above: For patients on eltr ombopag therapy, use of [employer] TBIL is not recommended. Chloride [Moles/Vol] 105 mmol/L 98-107 [facility] Cholesterol [Mass/Vol] 214 mg/dL <200 [facility] Comment on above: <200 mg/dL Desirable 200-240 mg/dL Borderline >240 mg/dL High Risk Glucose [Mass/Vol] 126 mg/dL 74-106 [facility] Comment on above: Fasting Glucose resu lt greater than or equal to 126 mg/dL suggests DIABETES MELLITUS per A.D.A. criteria. Potassium [Moles/Vol] 4.2 mmol/L 3.5-5.1 [facility] Protein [Mass/Vol] 6.9 g/dL 6.4-8.2 [facility] Sodium [Moles/Vol] 139 mmol/L 136-145 [facility] Triglyceride [Mass/Vol] 205 mg/dL <199 [facility] Comment on above: The drugs N-Acetylcy steine and Metamizole may falsely depress this assay.Serum Triglycerides Reference Interval Normal <150 mg/dL Borderline high 150 - 199 mg/dL High 200 - 499 mg/dL Very High > or = 500 mg/dL WBC (Bld) [#/Vol] 5.2 10*3/uL 4.4-11.0 [facility] Blood erythrocytes count (nu mber/volume)Ordered By: Ekaterina Wharton on 03-17-2022 RBC (Bld) [#/Vol] 4.14 10*6/uL 4.2-5.4 [facility] Blood hemoglobin measurement (mass/volume)Ordered By: Ekaterina Wharton on 03-17-2022 Hemoglobin (Bld) [Mass/Vol] 11.4 g/dL 12.0-15.0 [facility] Blood platelet mean volumeOr dered By: Ekaterina Wharton on 03-17-2022 Platelet mean volume (Bld) [Entitic vol] 11.8 fL 6.2-12.0 [facility] Determination of erythrocyte mean corpuscular volume (MCV)Ordered By: Ekaterina Wharton on 03-17-2022 MCV (RBC) [Entitic vol] 89.1 fL 81-99 [facility] Hematocrit Auto (Bld) [Volum e fraction]Ordered By: Ekaterina Wharton on 03-17-2022 Hematocrit (Bld) [Volume fraction] 36.9 % 37-47 [facility] Iron measurement (mass/mass) Ordered By: Ekaterina Wharton on 03-17-2022 Iron (Unsp spec) [Mass/Mass] 31 ug/dL 50-170 [facility] Laboratory - Chemistry and C hemistry - challengeOrdered By: Ekaterinakasey Wharton on 03-17-2022 ALP [Catalytic activity/Vol] 62 U/L 45-117 [facility] ALT [Catalytic activity/Vol] 29 U/L 13-56 [facility] CO2 [Moles/Vol] 22.0 mmol/L 21.0-32.0 [facility] Cobalamin (Vitamin B12) [Mass/Vol] 422 pg/mL 211-911 [facility] Globulin (S) [Mass/Vol] 3.6 g/dL 2.2-4.2 [facility] Magnesium [Mass/Vol] 1.9 mg/dL 1.6-2.6 [facility] Urea nitrogen/Creatinine [Mass ratio] 17.8 mg/mg 10-20 [facility] Laboratory - Hematology and Cell countsOrdered By: Ekaterinakasey Wharton on 03-17-2022 Erythrocyte distribution width (RBC) [Entitic vol] 43.7 fL 35.1-43.9 [facility] Erythrocyte distribution width (RBC) [Ratio] 13.5 % 11.6-14.6 [facility] MCH (RBC) [Entitic mass] 27.5 pg 27.0-32.0 [facility] MCHC Auto (RBC) [Mass/Vol]Or dered By: Ekaterina Wharton on 03-17-2022 MCHC (RBC) [Mass/Vol] 30.9 g/dL 32-36 [facility] No Panel InformationOrdered By: Ekaterinakasey Wharton on 03-17-2022 Estimated GFR (MDRD) Amer 101 mL/min >60 [facility] Comment on above: GFR Calc Estimated GFR (MDRD) Non-Af Amer 84 mL/min >60 [facility] Comment on above: Non- GFR Calc Thyroid Stimulating Hormone (TSH) 0.13 uIU/mL 0.358-3.74 [facility] Vitamin D 25-Hydroxy 44.1 ng/mL [facility] Comment on above: Vitamin D 25(OH) Sta tus Range Deficiency <20 ng/mL (50nmol/L) Insufficiency 20 - 30 ng/mL (50 - 75 nmol/L) Sufficiency 30 - 100 ng/mL (75 - 250 nmol/L) Toxicity >100 ng/mL (>250 nmol/L) Whole Blood Vitamin B1 Level 146.4 nmol/L 66.5-200.0 [facility] Platelets bldOrdered By: Jez Wharton on 03-17-2022 Platelets (Bld) [#/Vol] 251 10*3/uL 150-450 [facility] Serum or plasma albumin elicia urement (mass/volume)Ordered By: Ekaterina Wharton on 03-17-2022 Albumin [Mass/Vol] 3.3 g/dL 3.2-5.0 [facility] Serum or plasma albumin/glob ulin mass ratioOrdered By: Ekaterinakasey Wharton on 03-17-2022 Albumin/Globulin [Mass ratio] 0.9 {ratio} 0.9-2.4 [facility] Serum or plasma calcium elicia urement (mass/volume)Ordered By: Ekaterina Wharton on 03-17-2022 Calcium [Mass/Vol] 8.4 mg/dL 8.5-10.1 [facility] Serum or plasma cholesterol in HDL measurement (mass/volume)Ordered By: Ekaterina Wharton on 03-17-2022 Cholesterol in HDL [Mass/Vol] 57 mg/dL >40 [facility] Comment on above: The drugs N-Acetylcy steine and Metamizole may falsely depress this assay. Reference Range HDL <40 mg/dL Low HDL Cholesterol HDL >or= 60 mg/dL High HDL Cholesterol Serum or plasma cholesterol in VLDL measurement (mass/volume)Ordered By: Ekaterina Wharton on 03-17-2022 Cholesterol in VLDL [Mass/Vol] 41 mg/dL 5-40 [facility] Serum or plasma creatinine m easurement (mass/volume)Ordered By: Ekaterina Wharton on 03-17-2022 Creatinine [Mass/Vol] 0.78 mg/dL 0.55-1.02 [facility] Comment on above: The validity of the calculated GFR & GFRAA in patients over 70 years has not been determined. Clinical correlation is essential. Serum or plasma ferritin cornelia surement (mass/volume)Ordered By: Ekaterina Wharton on 03-17-2022 Ferritin [Mass/Vol] 4 ng/mL 8-252 [facility] Serum or plasma folate measu rement (mass/volume)Ordered By: Ekaterina Wharton on 03-17-2022 Folate [Mass/Vol] 32.00 ng/mL 3.1-55.4 [facility] Serum or plasma low density lipoprotein (LDL) cholesterol measurement (mass/volume)Ordered By: Ekaterina Wharton on 03-17-2022 Cholesterol in LDL [Mass/Vol] 116 mg/dL 0-130 [facility] Serum or plasma nicotine cornelia surement (mass/volume)Ordered By: Ekaterina Wharton on 03-17-2022 Nicotine [Mass/Vol] <1.0 ug/mL . [facility] Comment on above: This test was develo ped and its performance characteristicsdetermined by [employer]. It has not been cleared orapproved by the Food and Drug Administration.Nicotine levels greater than 2.0 are consistent with theuse of tobacco or tobacco cessation products. Serum or plasma urea nitroge n measurement (mass/volume)Ordered By: Ekaterinakasey Whatron on 03-17-2022 Urea nitrogen [Mass/Vol] 14 mg/dL 7-18 [facility] Serum or plasma zinc measure ment (mass/volume)Ordered By: Ekaterina Wharton on 03-17-2022 Zinc [Mass/Vol] 81 ug/dL 44-115 [facility] Comment on above: Detection Limit = 5P erformed at: [facility] [employer] [id number] Director: Rafia Paz MD, Phone: [phone] Thin prep Papanicolaou smear with manual screeningOrdered By: Ekaterina Wharton on 03-17-2022 Thin prep Papanicolaou smear with manual screening 16 U/L 15-37 [facility] Thin prep Papanicolaou smear with manual screening 12 5-15 [facility] Thin prep Papanicolaou smear with manual screening <1.0 ug/mL . [facility] Comment on above: This test was develo ped and its performance characteristicsdetermined by [employer]. It has not been cleared orapproved by the Food and Drug Administration.Cotinine levels greater than 20.0 are consistent with theuse of tobacco or tobacco cessation products. Whole blood hemoglobin A1c/t otal hemoglobin ratio (mass fraction)Ordered By: Ekaterina Wharton on 03-17-2022 HbA1c (Bld) [Mass fraction] 5.7 % 3.8-5.6 [facility] Comment on above: Normal < 5.7 % Predi abetic 5.7 - 6.4 % Diabetic >or= 6.5 % Please note range changes. Laboratory - Chemistry and C hemistry - challengeOrdered By: Dr. Adorno on 03-01-2022 Free T4 [Mass/Vol] 1.22 ng/dL 0.76-1.46 [facility] No Panel InformationOrdered By: Dr. Adorno on 03-01-2022 Thyroglobulin Antibody < 1.0 IU/mL 0.0-0.9 [facility] Comment on above: Thyroglobulin Antibo dy measured by Oleg CoulterMethodology Thyroglobulin Level 0.1 ng/mL 1.5-38.5 [facility] Comment on above: According to the [facility] Academy of Clinical Biochemistry,the reference interval for Thyroglobulin (TG) should berelated to euthyroid patients and not for patients whounderwent thyroidectomy. TG reference intervals for thesepatients depend on the residual mass of the thyroid tissueleft after surgery. Establishing a post-operative baselineis recommended. The assay limit of quantitation is 0.1ng/mLThyroglobulin measured by Oleg Della ImmunometricAssayPerformed at: - [facility] [id number] Director: Eddie Koch PhD, Phone: [phone] Thyroid Stimulating Hormone (TSH) 0.33 uIU/mL 0.358-3.74 [facility] Basophil percentageOrdered B y: Dr. Rosa on 12-29-2021 Bilirubin [Mass/Vol] 0.30 mg/dL 0.20-1.00 [facility] Comment on above: For patients on eltr ombopag therapy, use of [employer] TBIL is not recommended. Chloride [Moles/Vol] 107 mmol/L 98-107 [facility] Cholesterol [Mass/Vol] 231 mg/dL <200 [facility] Comment on above: <200 mg/dL Desirable 200-240 mg/dL Borderline >240 mg/dL High Risk Glucose [Mass/Vol] 106 mg/dL 74-106 [facility] Comment on above: Fasting Glucose resu lt from 100 to 125 mg/dL suggests IMPAIRED HOMEOSTASIS per A.D.A. criteria. Potassium [Moles/Vol] 4.5 mmol/L 3.5-5.1 [facility] Protein [Mass/Vol] 7.1 g/dL 6.4-8.2 [facility] Sodium [Moles/Vol] 139 mmol/L 136-145 [facility] Triglyceride [Mass/Vol] 145 mg/dL <199 [facility] Comment on above: The drugs N-Acetylcy steine and Metamizole may falsely depress this assay.Serum Triglycerides Reference Interval Normal <150 mg/dL Borderline high 150 - 199 mg/dL High 200 - 499 mg/dL Very High > or = 500 mg/dL Laboratory - Chemistry and C hemistry - challengeOrdered By: Dr. Rosa on 12-29-2021 ALP [Catalytic activity/Vol] 62 U/L 45-117 [facility] ALT [Catalytic activity/Vol] 31 U/L 13-56 [facility] CO2 [Moles/Vol] 26.0 mmol/L 21.0-32.0 [facility] Globulin (S) [Mass/Vol] 3.5 g/dL 2.2-4.2 [facility] Urea nitrogen/Creatinine [Mass ratio] 20.8 mg/mg 10-20 [facility] No Panel InformationOrdered By: Dr. Rosa on 12-29-2021 Estimated GFR (MDRD) Amer 112 mL/min >60 [facility] Comment on above: GFR Calc Estimated GFR (MDRD) Non-Af Amer 92 mL/min >60 [facility] Comment on above: Non- GFR Calc Vitamin D 25-Hydroxy 49.0 ng/mL [facility] Comment on above: Vitamin D 25(OH) Sta tus Range Deficiency <20 ng/mL (50nmol/L) Insufficiency 20 - 30 ng/mL (50 - 75 nmol/L) Sufficiency 30 - 100 ng/mL (75 - 250 nmol/L) Toxicity >100 ng/mL (>250 nmol/L) Serum or plasma albumin elicia urement (mass/volume)Ordered By: Dr. Rosa on 12-29-2021 Albumin [Mass/Vol] 3.6 g/dL 3.2-5.0 [facility] Serum or plasma albumin/glob ulin mass ratioOrdered By: Dr. Rosa on 12-29-2021 Albumin/Globulin [Mass ratio] 1.0 {ratio} 0.9-2.4 [facility] Serum or plasma calcium elicia urement (mass/volume)Ordered By: Dr. Rosa on 12-29-2021 Calcium [Mass/Vol] 8.8 mg/dL 8.5-10.1 [facility] Serum or plasma cholesterol in HDL measurement (mass/volume)Ordered By: Dr. Rosa on 12-29-2021 Cholesterol in HDL [Mass/Vol] 57 mg/dL >40 [facility] Comment on above: The drugs N-Acetylcy steine and Metamizole may falsely depress this assay. Reference Range HDL <40 mg/dL Low HDL Cholesterol HDL >or= 60 mg/dL High HDL Cholesterol Serum or plasma cholesterol in VLDL measurement (mass/volume)Ordered By: Dr. Rosa on 12-29-2021 Cholesterol in VLDL [Mass/Vol] 29 mg/dL 5-40 [facility] Serum or plasma creatinine m easurement (mass/volume)Ordered By: Dr. Rosa on 12-29-2021 Creatinine [Mass/Vol] 0.72 mg/dL 0.55-1.02 [facility] Comment on above: The validity of the calculated GFR & GFRAA in patients over 70 years has not been determined. Clinical correlation is essential. Serum or plasma low density lipoprotein (LDL) cholesterol measurement (mass/volume)Ordered By: Dr. Rosa on 12-29-2021 Cholesterol in LDL [Mass/Vol] 145 mg/dL 0-130 [facility] Serum or plasma urea nitroge n measurement (mass/volume)Ordered By: Dr. Rosa on 12-29-2021 Urea nitrogen [Mass/Vol] 15 mg/dL 7-18 [facility] Thin prep Papanicolaou smear with manual screeningOrdered By: Dr. Rosa on 12-29-2021 Thin prep Papanicolaou smear with manual screening 17 U/L 15-37 [facility] Thin prep Papanicolaou smear with manual screening 6 5-15 [facility] Whole blood hemoglobin A1c/t otal hemoglobin ratio (mass fraction)Ordered By: Dr. Rosa on 12-29-2021 HbA1c (Bld) [Mass fraction] 5.9 % 3.8-5.6 [facility] Comment on above: Normal < 5.7 % Predi abetic 5.7 - 6.4 % Diabetic >or= 6.5 % Please note range changes. Laboratory - Chemistry and C hemistry - challengeOrdered By: Radha Rodriguez on 12-03-2021 Free T4 [Mass/Vol] 1.14 ng/dL 0.76-1.46 [facility] No Panel InformationOrdered By: Radha Rodriguez on 12-03-2021 Thyroid Stimulating Hormone (TSH) 0.20 uIU/mL 0.358-3.74 [facility] Absolute lymphocyte counton 09-08-2021 Lymphocytes Auto (Unsp spec) [#/Vol] 1.67 10*3/uL 0.83-4.51 [facility] Work Phone: Basophil percentageon 2021 Basophils/100 WBC (Bld) 0.2 % 0-1 [facility] Work Phone: Bilirubin [Mass/Vol] 0.20 mg/dL 0.20-1.00 [facility] Work Phone: Comment on above: For patients on eltr ombopag therapy, use of [employer] TBIL is not recommended. Chloride [Moles/Vol] 105 mmol/L 98-107 [facility] Work Phone: Cholesterol [Mass/Vol] 241 mg/dL <200 [facility] Work Phone: Comment on above: <200 mg/dL Desirable 200-240 mg/dL Borderline >240 mg/dL High Risk Eosinophils/100 WBC (Bld) 2.4 % 0-5 [facility] Work Phone: Glucose [Mass/Vol] 105 mg/dL 74-106 [facility] Work Phone: Comment on above: Fasting Glucose resu lt from 100 to 125 mg/dL suggests IMPAIRED HOMEOSTASIS per A.D.A. criteria. Neutrophils (Bld) [#/Vol] 4.0 10*3/uL 2.0-7.7 [facility] Work Phone: Neutrophils/100 WBC (Bld) 62.9 % 47-70 [facility] Work Phone: Potassium [Moles/Vol] 4.3 mmol/L 3.5-5.1 [facility] Work Phone: Protein [Mass/Vol] 6.9 g/dL 6.4-8.2 [facility] Work Phone: Sodium [Moles/Vol] 138 mmol/L 136-145 [facility] Work Phone: Triglyceride [Mass/Vol] 211 mg/dL <199 [facility] Work Phone: Comment on above: The drugs N-Acetylcy steine and Metamizole may falsely depress this assay.Serum Triglycerides Reference Interval Normal <150 mg/dL Borderline high 150 - 199 mg/dL High 200 - 499 mg/dL Very High > or = 500 mg/dL WBC (Bld) [#/Vol] 6.4 10*3/uL 4.4-11.0 [facility] Work Phone: Blood erythrocytes count (nu mber/volume)on 09-08-2021 RBC (Bld) [#/Vol] 4.21 10*6/uL 4.2-5.4 [facility] Work Phone: Blood hemoglobin measurement (mass/volume)on 09-08-2021 Hemoglobin (Bld) [Mass/Vol] 12.3 g/dL 12.0-15.0 [facility] Work Phone: Blood lymphocytes/100 leukoc yteson 09-08-2021 Lymphocytes/100 WBC (Bld) 26.3 % 19-41 [facility] Work Phone: Blood monocytes/100 leukocyt eson 09-08-2021 Monocytes/100 WBC (Bld) 7.9 % 0-10 [facility] Work Phone: Blood platelet mean volumeon 09-08-2021 Platelet mean volume (Bld) [Entitic vol] 11.4 fL 6.2-12.0 [facility] Work Phone: Determination of erythrocyte mean corpuscular volume (MCV)on 09-08-2021 MCV (RBC) [Entitic vol] 91.0 fL 81-99 [facility] Work Phone: Hematocrit Auto (Bld) [Volum e fraction]on 09-08-2021 Hematocrit (Bld) [Volume fraction] 38.3 % 37-47 [facility] Work Phone: Laboratory - Chemistry and C hemistry - challengeon 09-08-2021 ALP [Catalytic activity/Vol] 61 U/L 45-117 [facility] Work Phone: ALT [Catalytic activity/Vol] 28 U/L 13-56 [facility] Work Phone: CO2 [Moles/Vol] 28.0 mmol/L 21.0-32.0 [facility] Work Phone: Free T4 [Mass/Vol] 1.14 ng/dL 0.76-1.46 [facility] Work Phone: Globulin (S) [Mass/Vol] 3.5 g/dL 2.2-4.2 [facility] Work Phone: Urea nitrogen/Creatinine [Mass ratio] 24.2 mg/mg 12-09 [facility] Work Phone: Laboratory - Hematology and Cell countson 09-08-2021 Erythrocyte distribution width (RBC) [Entitic vol] 43.8 fL 35.1-43.9 [facility] Work Phone: Erythrocyte distribution width (RBC) [Ratio] 13.2 % 11.6-14.6 [facility] Work Phone: Immature granulocytes/100 WBC (Bld) 0.300 % 0.0-0.9 [facility] Work Phone: Comment on above: IG% - Immature Granu locytes (promyelocytes, myelocytes and metamyelocytes) > 1% indicates that a LEFT SHIFT is Present. MCH (RBC) [Entitic mass] 29.2 pg 27.0-32.0 [facility] Work Phone: Nucleated RBC/100 WBC (Bld) [Ratio] 0 % 0-5 [facility] Work Phone: MCHC Auto (RBC) [Mass/Vol]on 09-08-2021 MCHC (RBC) [Mass/Vol] 32.1 g/dL 32-36 [facility] Work Phone: No Panel Informationon 09-08 Estimated GFR (MDRD) Amer 123 mL/min >60 [facility] Work Phone: Comment on above: GFR Calc Estimated GFR (MDRD) Non-Af Amer 102 mL/min >60 [facility] Work Phone: Comment on above: Non- GFR Calc Thyroid Stimulating Hormone (TSH) 0.27 uIU/mL 0.358-3.74 [facility] Work Phone: Vitamin D 25-Hydroxy 38.2 ng/mL [facility] Work Phone: Comment on above: Vitamin D 25(OH) Sta tus Range Deficiency <20 ng/mL (50nmol/L) Insufficiency 20 - 30 ng/mL (50 - 75 nmol/L) Sufficiency 30 - 100 ng/mL (75 - 250 nmol/L) Toxicity >100 ng/mL (>250 nmol/L) Platelets bldon 09-08-2021 Platelets (Bld) [#/Vol] 258 10*3/uL 150-450 [facility] Work Phone: Serum or plasma albumin elicia urement (mass/volume)on 09-08-2021 Albumin [Mass/Vol] 3.4 g/dL 3.2-5.0 [facility] Work Phone: Serum or plasma albumin/glob ulin mass ratioon 09-08-2021 Albumin/Globulin [Mass ratio] 1.0 {ratio} 0.9-2.4 [facility] Work Phone: Serum or plasma calcium elicia urement (mass/volume)on 09-08-2021 Calcium [Mass/Vol] 8.9 mg/dL 8.5-10.1 [facility] Work Phone: Serum or plasma cholesterol in HDL measurement (mass/volume)on 09-08-2021 Cholesterol in HDL [Mass/Vol] 53 mg/dL >40 [facility] Work Phone: Comment on above: The drugs N-Acetylcy steine and Metamizole may falsely depress this assay. Reference Range HDL <40 mg/dL Low HDL Cholesterol HDL >or= 60 mg/dL High HDL Cholesterol Serum or plasma cholesterol in VLDL measurement (mass/volume)on 09-08-2021 Cholesterol in VLDL [Mass/Vol] 42 mg/dL 5-40 [facility] Work Phone: Serum or plasma creatinine m easurement (mass/volume)on 09-08-2021 Creatinine [Mass/Vol] 0.66 mg/dL 0.55-1.02 [facility] Work Phone: Comment on above: The validity of the calculated GFR & GFRAA in patients over 70 years has not been determined. Clinical correlation is essential. Serum or plasma low density lipoprotein (LDL) cholesterol measurement (mass/volume)on 09-08-2021 Cholesterol in LDL [Mass/Vol] 146 mg/dL 0-130 [facility] Work Phone: Serum or plasma urea nitroge n measurement (mass/volume)on 09-08-2021 Urea nitrogen [Mass/Vol] 16 mg/dL 7-18 [facility] Work Phone: Thin prep Papanicolaou smear with manual screeningon 09-08-2021 Thin prep Papanicolaou smear with manual screening 14 U/L 15-37 [facility] Work Phone: Thin prep Papanicolaou smear with manual screening 5 5-15 [facility] Work Phone: Whole blood hemoglobin A1c/t otal hemoglobin ratio (mass fraction)on 09-08-2021 HbA1c (Bld) [Mass fraction] 5.9 % 3.8-5.6 [facility] Work Phone: Comment on above: Normal < 5.7 % Predi abetic 5.7 - 6.4 % Diabetic >or= 6.5 % Please note range changes. Erythrocyte sedimentation [place] 07-14-2021 ESR (Bld) [Velocity] 10 mm/h 0-30 [facility] Work Phone: No Panel Informationon 07-14 Anti-Nuclear Antibody Screen Negative Negative [facility] Work Phone: Comment on above: Performed at: [place] [id number] Director: Eddie Koch PhD, Phone: [phone] Serum rheumatoid factor dete ctionon 07-14-2021 Rheumatoid factor Ql (S) < 10.0 IU/mL <15 [facility] Work Phone: Absolute lymphocyte counton 06-03-2021 Lymphocytes Auto (Unsp spec) [#/Vol] 1.49 10*3/uL 0.83-4.51 [facility] Work Phone: Basophil percentageon 2021 Basophils/100 WBC (Bld) 0.2 % 0-1 [facility] Work Phone: Bilirubin [Mass/Vol] 0.30 mg/dL 0.20-1.00 [facility] Work Phone: Comment on above: For patients on eltr ombopag therapy, use of [employer] TBIL is not recommended. Chloride [Moles/Vol] 107 mmol/L 98-107 [facility] Work Phone: Eosinophils/100 WBC (Bld) 1.6 % 0-5 [facility] Work Phone: Glucose [Mass/Vol] 112 mg/dL 74-106 [facility] Work Phone: Comment on above: Fasting Glucose resu lt from 100 to 125 mg/dL suggests IMPAIRED HOMEOSTASIS per A.D.A. criteria. Neutrophils (Bld) [#/Vol] 4.2 10*3/uL 2.0-7.7 [facility] Work Phone: Neutrophils/100 WBC (Bld) 66.8 % 47-70 [facility] Work Phone: Potassium [Moles/Vol] 4.4 mmol/L 3.5-5.1 [facility] Work Phone: Protein [Mass/Vol] 7.0 g/dL 6.4-8.2 [facility] Work Phone: Sodium [Moles/Vol] 140 mmol/L 136-145 [facility] Work Phone: WBC (Bld) [#/Vol] 6.3 10*3/uL 4.4-11.0 [facility] Work Phone: Blood erythrocytes count (nu mber/volume)on 06-03-2021 RBC (Bld) [#/Vol] 4.31 10*6/uL 4.2-5.4 [facility] Work Phone: Blood hemoglobin measurement (mass/volume)on 06-03-2021 Hemoglobin (Bld) [Mass/Vol] 12.3 g/dL 12.0-15.0 [facility] Work Phone: Blood lymphocytes/100 leukoc yteson 06-03-2021 Lymphocytes/100 WBC (Bld) 23.7 % 19-41 [facility] Work Phone: Blood monocytes/100 leukocyt eson 06-03-2021 Monocytes/100 WBC (Bld) 7.5 % 0-10 [facility] Work Phone: Blood platelet mean volumeon 06-03-2021 Platelet mean volume (Bld) [Entitic vol] 12.3 fL 6.2-12.0 [facility] Work Phone: Determination of erythrocyte mean corpuscular volume (MCV)on 06-03-2021 MCV (RBC) [Entitic vol] 89.8 fL 81-99 [facility] Work Phone: Hematocrit Auto (Bld) [Volum e fraction]on 06-03-2021 Hematocrit (Bld) [Volume fraction] 38.7 % 37-47 [facility] Work Phone: Laboratory - Chemistry and C hemistry - challengeon 06-03-2021 ALP [Catalytic activity/Vol] 57 U/L 45-117 [facility] Work Phone: ALT [Catalytic activity/Vol] 34 U/L 13-56 [facility] Work Phone: CO2 [Moles/Vol] 27.0 mmol/L 21.0-32.0 [facility] Work Phone: Globulin (S) [Mass/Vol] 3.4 g/dL 2.2-4.2 [facility] Work Phone: Urea nitrogen/Creatinine [Mass ratio] 17.9 mg/mg 10-20 [facility] Work Phone: Laboratory - Hematology and Cell countson 06-03-2021 Erythrocyte distribution width (RBC) [Entitic vol] 44.0 fL 35.1-43.9 [facility] Work Phone: Erythrocyte distribution width (RBC) [Ratio] 13.4 % 11.6-14.6 [facility] Work Phone: Immature granulocytes/100 WBC (Bld) 0.200 % 0.0-0.9 [facility] Work Phone: Comment on above: IG% - Immature Granu locytes (promyelocytes, myelocytes and metamyelocytes) > 1% indicates that a LEFT SHIFT is Present. MCH (RBC) [Entitic mass] 28.5 pg 27.0-32.0 [facility] Work Phone: Nucleated RBC/100 WBC (Bld) [Ratio] 0 % 0-5 [facility] Work Phone: MCHC Auto (RBC) [Mass/Vol]on 06-03-2021 MCHC (RBC) [Mass/Vol] 31.8 g/dL 32-36 [facility] Work Phone: No Panel Informationon 06-03 Estimated GFR (MDRD) Amer 102 mL/min >60 [facility] Work Phone: Comment on above: GFR Calc Estimated GFR (MDRD) Non-Af Amer 84 mL/min >60 [facility] Work Phone: Comment on above: Non- GFR Calc Vitamin D 25-Hydroxy 45.2 ng/mL [facility] Work Phone: Comment on above: Vitamin D 25(OH) Sta tus Range Deficiency <20 ng/mL (50nmol/L) Insufficiency 20 - 30 ng/mL (50 - 75 nmol/L) Sufficiency 30 - 100 ng/mL (75 - 250 nmol/L) Toxicity >100 ng/mL (>250 nmol/L) Platelets bldon 06-03-2021 Platelets (Bld) [#/Vol] 208 10*3/uL 150-450 [facility] Work Phone: Serum or plasma albumin elicia urement (mass/volume)on 06-03-2021 Albumin [Mass/Vol] 3.6 g/dL 3.2-5.0 [facility] Work Phone: Serum or plasma albumin/glob ulin mass ratioon 06-03-2021 Albumin/Globulin [Mass ratio] 1.1 {ratio} 0.9-2.4 [facility] Work Phone: Serum or plasma calcium elicia urement (mass/volume)on 06-03-2021 Calcium [Mass/Vol] 8.6 mg/dL 8.5-10.1 [facility] Work Phone: Serum or plasma creatinine m easurement (mass/volume)on 06-03-2021 Creatinine [Mass/Vol] 0.78 mg/dL 0.55-1.02 [facility] Work Phone: Comment on above: The validity of the calculated GFR & GFRAA in patients over 70 years has not been determined. Clinical correlation is essential. Serum or plasma urea nitroge n measurement (mass/volume)on 06-03-2021 Urea nitrogen [Mass/Vol] 14 mg/dL 7-18 [facility] Work Phone: Thin prep Papanicolaou smear with manual screeningon 06-03-2021 Thin prep Papanicolaou smear with manual screening 17 U/L 15-37 [facility] Work Phone: Thin prep Papanicolaou smear with manual screening 6 5-15 [facility] Work Phone: Whole blood hemoglobin A1c/t otal hemoglobin ratio (mass fraction)on 06-03-2021 HbA1c (Bld) [Mass fraction] 5.6 % 3.8-5.6 [facility] Work Phone: Comment on above: Normal < 5.7 % Predi abetic 5.7 - 6.4 % Diabetic >or= 6.5 % Please note range changes. Cervical or vagninal specime n microscopic examination by cytology stain (reported ason 05-06-2021 Cytology report Cyto stain Doc (Cvx/Vag) Comment [facility] Work Phone: Comment on above: The Pap smear is a s creening test designed to aid in thedetection of premalignant and malignant conditions of theuterine cervix. It is not a diagnostic procedure andshould not be used as the sole means of detecting cervicalcancer. Both false-positive and false-negative reports dooccur. Detection in cervical specim en of any of human papilloma virus (HPV) 16, 18, 31, 33,on 05-06-2021 HPV 16+18+31+33+35+39+45+5 1+52+56+58+59+66+68 DNA Probe+sig amp Ql (Cvx) Negative Negative [facility] Work Phone: Comment on above: This nucleic acid am plification test detects fourteen high- risk HPV types (16,18,31,33,35,39,45,51,52,56,58,59,66,68)without differentiation.Performed at: [address], [place] [id number] Director: Pooja Gusman MD, Phone: [phone] at: =G - [facility] [address] [place], [place] [id number] Director: Pooja Gusman MD, Phone: [phone] Laboratory - Cytologyon 04-20 [employer] Class Welder Cyto stain Nom (Cvx/Vag) [ID] Comment [facility] Work Phone: Comment on above: Darshan Paredes , Solar Photovoltaic Designer (ASCP) Laboratory - Miscellaneous t estson 05-06-2021 Service comment (Unsp spec) [Interp] Comment [facility] Work Phone: Comment on above: This liquid based Th inPrep(R) pap test was screened withthe use of an image guided system. Service comment (Unsp spec) [Interp] . [facility] Work Phone: No Panel Informationon 05-06 Pathology report final diagnosis Narrative Comment [facility] Work Phone: Comment on above: NEGATIVE FOR INTRAEP ITHELIAL LESION OR MALIGNANCY. Miscellaneous Test Comment MAILED SPECIMEN [facility] Work Phone: Laboratory - Chemistry and C hemistry - challengeon 03-05-2021 Free T4 [Mass/Vol] 1.14 ng/dL 0.76-1.46 [facility] Work Phone: No Panel Informationon 03-05 Thyroglobulin Antibody < 1.0 IU/mL [facility] Work Phone: Comment on above: Thyroglobulin Antibo dy measured by Oleg CoulterMethodology Thyroglobulin Level 0.1 ng/mL [facility] Work Phone: Comment on above: According to the [facility] Academy of Clinical [employer]ochemistry,the reference interval for Thyroglobulin (TG) should berelated to euthyroid patients and not for patients whounderwent thyroidectomy. TG reference intervals for thesepatients depend on the residual mass of the thyroid tissueleft after surgery. Establishing a post-operative baselineis recommended. The assay limit of quantitation is 0.1ng/mLThyroglobulin measured by Oleg [place] ImmunometricAssayPerformed at: CB - [facility] [address] [id number] Director: Eddie Koch PhD, Phone: [phone] Thyroid Stimulating Hormone (TSH) 2.04 uIU/mL 0.358-3.74 [facility] Work Phone: Vital Signs Date Time Vital Sign Value Performing Clinician Facility 06-19-2024 13:35-0400 Body height 157.[address] Chris Rosa MD Work Phone: [facility] 06-19-2024 13:35-0400 Body mass index (BMI) [Ratio] 31.6 kg/m2 Dr. Chris Rosa MD Work Phone: 2(673)[phone] [place] [address] 06-19-2024 13:35-0400 Body weight 78.[address] Chris Rosa MD Work Phone: [facility] 06-19-2024 13:35-0400 Diastolic blood pressure 88 mm[Hg] Dr. Chris Rosa MD Work Phone: [facility] 06-19-2024 13:35-0400 Systolic blood pressure 137 mm[Hg] Dr. Chris Rosa MD Work Phone: [facility] 03-01-2024 14:57-0500 Body height 157.[address] Chris Rosa MD Work Phone: [facility] 03-01-2024 14:57-0500 Body mass index (BMI) [Ratio] 31.7 kg/m2 Dr. Chris Rosa MD Work Phone: [facility] 03-01-2024 14:57-0500 Body weight 78.[address] Chris Rosa MD Work Phone: [facility] 03-01-2024 14:57-0500 Diastolic blood pressure 85 mm[Hg] Dr. Chris Rosa MD Work Phone: [facility] 03-01-2024 14:57-0500 Heart rate 94 /min Dr. Chris Rosa MD Work Phone: [facility] 03-01-2024 14:57-0500 SaO2% (BldA) [Mass fraction] 99 % Dr. Chris Rosa MD Work Phone: [facility] 03-01-2024 14:57-0500 Systolic blood pressure 137 mm[Hg] Dr. Chris Rosa MD Work Phone: [facility] 07-24-2023 10:48-0400 Heart rate 79 /min Robert Johnson MD Work Phone: [facility] 07-24-2023 10:48-0400 SaO2% (BldA) [Mass fraction] 96 % Robert Johnson MD Work Phone: [facility] 07-24-2023 10:38-0400 Diastolic blood pressure 68 mm[Hg] Robert Johnson MD Work Phone: [facility] 07-24-2023 10:38-0400 Systolic blood pressure 99 mm[Hg] Robert Johnson MD Work Phone: [facility] 07-24-2023 09:50-0400 Respiratory rate 14 /min Robert Johnson MD Work Phone: [facility] 07-24-2023 09:29-0400 Body mass index (BMI) [Ratio] 32.9 kg/m2 Robert Johnson MD Work Phone: [facility] 07-24-2023 09:29-0400 Body temperature 97.3 [degF] Robert Johnson MD Work Phone: [facility] 07-24-2023 09:29-0400 Body weight 81.6 kg Robert Johnson MD Work Phone: [facility] 06-21-2023 09:37-0400 Body height 154.9 cm Jarrod Collazo MD Work Phone: [facility] Comment on above: [facility] 06-21-2023 09:37-0400 Body mass index (BMI) [Ratio] 33.71 kg/m2 Jarrod Collazo MD Work Phone: [facility] 06-21-2023 09:37-0400 Body temperature 97.81 [degF] Jarrod Collazo MD Work Phone: [facility] 06-21-2023 09:37-0400 Body weight 80.92 kg Jarrod Collazo MD Work Phone: [facility] Comment on above: [facility] 06-21-2023 09:37-0400 Diastolic blood pressure 81 mm[Hg] Jarrod Collazo MD Work Phone: [facility] 06-21-2023 09:37-0400 Heart rate 79 /min Jarrod Collazo MD Work Phone: [facility] 06-21-2023 09:37-0400 Respiratory rate 16 /min Jarrod Collazo MD Work Phone: [facility] 06-21-2023 09:37-0400 Systolic blood pressure 121 mm[Hg] Jarrod Collazo MD Work Phone: [facility] 06-15-2023 15:39-0400 Body height 157.5 cm Robert Johnson MD Work Phone: [facility] 06-15-2023 15:39-0400 Body mass index (BMI) [Ratio] 32.92 kg/m2 Robert Johnson MD Work Phone: [facility] 06-15-2023 15:39-0400 Body temperature 97.9 [degF] Robert Johnson MD Work Phone: [facility] 06-15-2023 15:39-0400 Body weight 81.65 kg Robert Johnson MD Work Phone: [facility] 06-15-2023 15:39-0400 Diastolic blood pressure 78 mm[Hg] Robert Johnson MD Work Phone: [facility] 06-15-2023 15:39-0400 Heart rate 90 /min Robert Johnson MD Work Phone: [facility] 06-15-2023 15:39-0400 SaO2% (BldA) [Mass fraction] 96 % Robert Johnson MD Work Phone: [facility] 06-15-2023 15:39-0400 Systolic blood pressure 124 mm[Hg] Robert Johnson MD Work Phone: [facility] 05-10-2023 13:15-0400 Body temperature 98.5 [degF] Dr. Chris Rosa Work Phone: [facility] 05-10-2023 13:15-0400 Diastolic blood pressure 69 mm[Hg] Dr. Chris Rosa Work Phone: [facility] 05-10-2023 13:15-0400 Heart rate 65 /min Dr. Chris Rosa Work Phone: [facility] 05-10-2023 13:15-0400 Respiratory rate 16 /min Dr. Chris Rosa Work Phone: [facility] 05-10-2023 13:15-0400 SaO2% (BldA) [Mass fraction] 93 % Dr. Chris Rosa Work Phone: [facility] 05-10-2023 13:15-0400 Systolic blood pressure 99 mm[Hg] Dr. Chris Rosa Work Phone: [facility] 05-10-2023 12:30-0400 Inhaled oxygen flow rate 2 L/min Dr. Chris Rosa Work Phone: [facility] 05-10-2023 11:13-0400 Body height 157.[address] Chris Rosa Work Phone: [facility] 05-10-2023 11:13-0400 Body mass index (BMI) [Ratio] 31.8 kg/m2 Dr. Chris Rosa Work Phone: [facility] 05-10-2023 11:13-0400 Body weight [address] Chris Rosa Work Phone: [facility] 03-28-2023 08:19-0500 Body mass index (BMI) [Ratio] 32.3 kg/m2 Dr. Chris Rosa Work Phone: [facility] 03-28-2023 08:19-0500 Body temperature 98.5 [degF] Dr. Chris Rosa Work Phone: [facility] 03-28-2023 08:19-0500 Body weight 80.[address] Crhis Rosa Work Phone: [facility] 03-28-2023 08:19-0500 Diastolic blood pressure 80 mm[Hg] Dr. Chris Rosa Work Phone: 0(554)558-938827 [place] [address] 03-28-2023 08:19-0500 Heart rate 115 /min Dr. Chris Rosa Work Phone: 7(919)[phone] [address] 03-28-2023 08:19-0500 Respiratory rate 12 /min Dr. Chris Rosa Work Phone: 8(465)739-702427 [place] [address] 03-28-2023 08:19-0500 SaO2% (BldA) [Mass fraction] 97 % Dr. Chris Rosa Work Phone: 4(585)[phone] [place] [address] 03-28-2023 08:19-0500 Systolic blood pressure 126 mm[Hg] Dr. Chris Rosa Work Phone: [facility] 03-02-2023 11:25-0500 Body mass index (BMI) [Ratio] 32.8 kg/m2 Dr. Chris Rosa Work Phone: [facility] 03-02-2023 11:25-0500 Body temperature 98.2 [degF] Dr. Chris Rosa Work Phone: [facility] 03-02-2023 11:25-0500 Body weight 78.[address] Chris Rosa Work Phone: 8(283)[phone] [place] [address] 03-02-2023 11:25-0500 Diastolic blood pressure 84 mm[Hg] Dr. Chris Rosa Work Phone: 0(741)[phone] [place] [address] 03-02-2023 11:25-0500 Heart rate 85 /min Dr. Chris Rosa Work Phone: [facility] 03-02-2023 11:25-0500 Respiratory rate 16 /min Dr. Chris Rosa Work Phone: [facility] 03-02-2023 11:25-0500 SaO2% (BldA) [Mass fraction] 99 % Dr. Chris Rosa Work Phone: [facility] 03-02-2023 11:25-0500 Systolic blood pressure 128 mm[Hg] Dr. Chris Rosa Work Phone: [facility] 02-09-2023 14:35-0500 Body temperature 98.2 [degF] Dr. Chris Rosa Work Phone: [facility] 02-09-2023 14:35-0500 Diastolic blood pressure 67 mm[Hg] Dr. Chris Rosa Work Phone: [facility] 02-09-2023 14:35-0500 Heart rate 88 /min Dr. Chris Rosa Work Phone: [facility] 02-09-2023 14:35-0500 Respiratory rate 16 /min Dr. Chris Rosa Work Phone: [facility] 02-09-2023 14:35-0500 SaO2% (BldA) [Mass fraction] 98 % Dr. Chris Rosa Work Phone: [facility] 02-09-2023 14:35-0500 Systolic blood pressure 123 mm[Hg] Dr. Chris Rosa Work Phone: [facility] 02-09-2023 05:09-0500 Body mass index (BMI) [Ratio] 33.3 kg/m2 Dr. Chris Rosa Work Phone: [facility] 02-09-2023 05:09-0500 Body weight 79.[address] Chris Rosa Work Phone: [facility] 02-08-2023 17:05-0500 Inhaled oxygen flow rate 4 L/min Dr. Chris Rosa Work Phone: [facility] 02-05-2023 18:27-0500 Diastolic blood pressure 88 mm[Hg] Dr. Chris Rosa Work Phone: [facility] 02-05-2023 18:27-0500 Heart rate 88 /min Dr. Chris Rosa Work Phone: [facility] 02-05-2023 18:27-0500 SaO2% (BldA) [Mass fraction] 98 % Dr. Chris Rosa Work Phone: [facility] 02-05-2023 18:27-0500 Systolic blood pressure 144 mm[Hg] Dr. Chris Rosa Work Phone: [facility] 02-05-2023 17:40-0500 Body mass index (BMI) [Ratio] 33 kg/m2 Dr. Chris Rosa Work Phone: [facility] 02-05-2023 17:40-0500 Body weight 79.[address] Chris Rosa Work Phone: [facility] 02-05-2023 17:40-0500 Respiratory rate 16 /min Dr. Chris Rosa Work Phone: [facility] 02-05-2023 16:53-0500 Body temperature 98.3 [degF] Dr. Chris Rosa Work Phone: [facility] 02-05-2023 13:40-0500 Body height 154.[address] Chris Rosa Work Phone: [facility] 12-27-2022 15:10-0500 Body height 154.9 cm Ekaterina Wharton BULK TRUCK DRIVER - HANDLE ASSEMBLER Work Phone: [facility] 12-27-2022 15:10-0500 Body mass index (BMI) [Ratio] 34.84 kg/m2 Ekaterina Mykelle [employer]ULK TRUCK DRIVER - HANDLE ASSEMBLER Work Phone: [facility] 12-27-2022 15:10-0500 Body temperature 98.2 [degF] Ekaterina Bridle [employer]ULK TRUCK DRIVER - HANDLE ASSEMBLER Work Phone: [facility] 12-27-2022 15:10-0500 Body weight 83.64 kg Ekaterina Bridle [employer]ULK TRUCK DRIVER - HANDLE ASSEMBLER Work Phone: [facility] 12-27-2022 15:10-0500 Diastolic blood pressure 82 mm[Hg] Ekaterina Bridle [employer]ULK TRUCK DRIVER - HANDLE ASSEMBLER Work Phone: [facility] 12-27-2022 15:10-0500 Heart rate 88 /min Ekaterina Bridle BULK TRUCK DRIVER - HANDLE ASSEMBLER Work Phone: [facility] 12-27-2022 15:10-0500 Respiratory rate 16 /min Ekaterina Bridle [employer]ULK TRUCK DRIVER - HANDLE ASSEMBLER Work Phone: [facility] 12-27-2022 15:10-0500 Systolic blood pressure 125 mm[Hg] Ekaterina Bridle BULK TRUCK DRIVER - HANDLE ASSEMBLER Work Phone: [facility] 08-30-2022 14:35-0400 Body height 154.9 cm Ekaterina Bridle BULK TRUCK DRIVER - HANDLE ASSEMBLER Work Phone: [facility] 08-30-2022 14:35-0400 Body mass index (BMI) [Ratio] 36.47 kg/m2 Ekaterina Bridle [employer]ULK TRUCK DRIVER - HANDLE ASSEMBLER Work Phone: [facility] 08-30-2022 14:35-0400 Body temperature 98.01 [degF] Ekaterina Bridle [employer]ULK TRUCK DRIVER - HANDLE ASSEMBLER Work Phone: [facility] 08-30-2022 14:35-0400 Body weight 87.54 kg Ekaterina Bridle BULK TRUCK DRIVER - HANDLE ASSEMBLER Work Phone: [facility] 08-30-2022 14:35-0400 Diastolic blood pressure 85 mm[Hg] Ekaterina Bridle [employer]ULK TRUCK DRIVER - HANDLE ASSEMBLER Work Phone: [facility] 08-30-2022 14:35-0400 Heart rate 94 /min Ekaterina Bridle BULK TRUCK DRIVER - HANDLE ASSEMBLER Work Phone: [facility] 08-30-2022 14:35-0400 Respiratory rate 16 /min Ekaterina Bridle BULK TRUCK DRIVER - HANDLE ASSEMBLER Work Phone: [facility] 08-30-2022 14:35-0400 Systolic blood pressure 128 mm[Hg] Ekaterina Wharton BULK TRUCK DRIVER - HANDLE ASSEMBLER Work Phone: [facility] 06-29-2022 08:34-0400 Body height 154.9 cm Jarrod Collazo MD Work Phone: [facility] Comment on above: [facility] 06-29-2022 08:34-0400 Body mass index (BMI) [Ratio] 39.79 kg/m2 Jarrod Collazo MD Work Phone: [facility] 06-29-2022 08:34-0400 Body temperature 97.7 [degF] Jarrod Collazo MD Work Phone: [facility] 06-29-2022 08:34-0400 Body weight 95.53 kg Jarrod Collazo MD Work Phone: [facility] 06-29-2022 08:34-0400 Diastolic blood pressure 81 mm[Hg] Jarrod Collazo MD Work Phone: [facility] 06-29-2022 08:34-0400 Heart rate 97 /min Jarrod Collazo MD Work Phone: [facility] 06-29-2022 08:34-0400 Respiratory rate 16 /min Jarrod Collazo MD Work Phone: [facility] 06-29-2022 08:34-0400 Systolic blood pressure 131 mm[Hg] Jarrod Collazo MD Work Phone: [facility] 06-13-2022 15:19-0400 Body height 154.[address] Chris Rosa Work Phone: [facility] 06-13-2022 15:19-0400 Body mass index (BMI) [Ratio] 40.1 kg/m2 Dr. Chris Rosa Work Phone: [facility] 06-13-2022 15:19-0400 Body weight 96.[address] Chris Rosa Work Phone: [facility] 06-13-2022 15:19-0400 Diastolic blood pressure 85 mm[Hg] Dr. Chris Rosa Work Phone: [facility] 06-13-2022 15:19-0400 Systolic blood pressure 133 mm[Hg] Dr. Chris Rosa Work Phone: [facility] 06-01-2022 08:27-0400 Body height 154.9 cm Jarrod Collazo MD Work Phone: [facility] Comment on above: [facility] 06-01-2022 08:27-0400 Body mass index (BMI) [Ratio] 41.72 kg/m2 Jarrod Collazo MD Work Phone: [facility] 06-01-2022 08:27-0400 Body temperature 97.9 [degF] Jarrod Collazo MD Work Phone: [facility] 06-01-2022 08:27-0400 Body weight 100.15 kg Jarrod Collazo MD Work Phone: [facility] 06-01-2022 08:27-0400 Diastolic blood pressure 73 mm[Hg] Jarrod Collazo MD Work Phone: [facility] 06-01-2022 08:27-0400 Heart rate 104 /min Jarrod Collazo MD Work Phone: [facility] 06-01-2022 08:27-0400 Respiratory rate 16 /min Jarrod Collazo MD Work Phone: [facility] 06-01-2022 08:27-0400 SaO2% (BldA) [Mass fraction] 98 % Jarrod Collazo MD Work Phone: [facility] 06-01-2022 08:27-0400 Systolic blood pressure 118 mm[Hg] Jarrod Collazo MD Work Phone: [facility] 05-25-2022 12:53-0400 Body temperature 98.49 [degF] Jarrod Collazo MD Work Phone: [facility] 05-25-2022 12:53-0400 Diastolic blood pressure 80 mm[Hg] Jarrod Collazo MD Work Phone: [facility] [employer] 05-25-2022 12:53-0400 Heart rate 104 /min Jarrod Collazo MD Work Phone: [facility] [employer] 05-25-2022 12:53-0400 Respiratory rate 16 /min Jarrod Collazo MD Work Phone: [facility] 05-25-2022 12:53-0400 SaO2% (BldA) [Mass fraction] 96 % Jarrod Collazo MD Work Phone: [facility] 05-25-2022 12:53-0400 Systolic blood pressure 159 mm[Hg] Jarrod Collazo MD Work Phone: [facility] 05-04-2022 10:37-0400 Body height 154.9 cm Jarrod Collazo MD Work Phone: [facility] 05-04-2022 10:37-0400 Body mass index (BMI) [Ratio] 45.54 kg/m2 Jarrod Collazo MD Work Phone: [facility] 05-04-2022 10:37-0400 Body temperature 97.59 [degF] Jarrod Collazo MD Work Phone: [facility] 05-04-2022 10:37-0400 Body weight 109.32 kg Jarrod Collazo MD Work Phone: [facility] 05-04-2022 10:37-0400 Diastolic blood pressure 78 mm[Hg] Jarrod Collazo MD Work Phone: [facility] 05-04-2022 10:37-0400 Heart rate 108 /min Jarrod Collazo MD Work Phone: [facility] [employer] 05-04-2022 10:37-0400 Respiratory rate 18 /min Jarrod Collazo MD Work Phone: [facility] 05-04-2022 10:37-0400 Systolic blood pressure 161 mm[Hg] Jarrod Collazo MD Work Phone: [facility] 03-28-2022 15:08-0500 Body height 157.5 cm Kristen Marcus MD Work Phone: [facility] 03-28-2022 15:08-0500 Body mass index (BMI) [Ratio] 44.26 kg/m2 Kristen Marcus MD Work Phone: [facility] 03-28-2022 15:08-0500 Body weight 109.77 kg Kristen Marcus MD Work Phone: [facility] 03-28-2022 15:08-0500 Diastolic blood pressure 90 mm[Hg] Kristen Marcus MD Work Phone: [facility] 03-28-2022 15:08-0500 Heart rate 102 /min Kristen Marcus MD Work Phone: [facility] 03-28-2022 15:08-0500 Respiratory rate 16 /min Kristen Marcus MD Work Phone: [facility] 03-28-2022 15:08-0500 Systolic blood pressure 126 mm[Hg] Kristen Marcus MD Work Phone: [facility] 03-18-2022 11:34-0500 Diastolic blood pressure 88 mm[Hg] Jarrod Collazo MD Work Phone: [facility] 03-18-2022 11:34-0500 Systolic blood pressure 131 mm[Hg] Jarrod Collazo MD Work Phone: [facility] 03-18-2022 11:16-0500 Heart rate 103 /min Jarrod Collazo MD Work Phone: [facility] 03-18-2022 11:16-0500 Respiratory rate 18 /min Jarrod Collazo MD Work Phone: [facility] 03-18-2022 11:16-0500 SaO2% (BldA) [Mass fraction] 93 % Jarrod Collazo MD Work Phone: [facility] 03-18-2022 11:10-0500 Body temperature 99.81 [degF] Jarrod Collazo MD Work Phone: [facility] 03-18-2022 10:10-0500 Body height 154.9 cm Jarrod Collazo MD Work Phone: [facility] [facility] 03-18-2022 10:10-0500 Body mass index (BMI) [Ratio] 44.4 kg/m2 Jarrod Collazo MD Work Phone: [facility] [employer] 03-18-2022 10:10-0500 Body weight 106.59 kg Jarrod Collazo MD Work Phone: [facility] 03-09-2022 15:16-0500 Body height 154.9 cm Cayla Villavicencio MD Work Phone: [facility] [employer] 03-09-2022 15:16-0500 Body mass index (BMI) [Ratio] 45.69 kg/m2 Cayla Villavicencio MD Work Phone: [facility] [employer] 03-09-2022 15:16-0500 Body weight 109.68 kg Cayla Villavicencio MD Work Phone: [facility] [employer] 03-09-2022 15:16-0500 Diastolic blood pressure 87 mm[Hg] Cayla Villavicencio MD Work Phone: [facility] [employer] 03-09-2022 15:16-0500 Heart rate 101 /min Cayla Villavicencio MD Work Phone: [facility] 03-09-2022 15:16-0500 Respiratory rate 14 /min Cayla Villavicencio MD Work Phone: [facility] 03-09-2022 15:16-0500 Systolic blood pressure 139 mm[Hg] Cayla Villavicencio MD Work Phone: [facility] 03-03-2022 11:38-0500 Body height 154.[address] Chris Rosa Work Phone: [facility] 03-03-2022 11:38-0500 Body mass index (BMI) [Ratio] 45.2 kg/m2 Dr. Chris Rosa Work Phone: [facility] 03-03-2022 11:38-0500 Body temperature 95.4 [degF] Dr. Chris Rosa Work Phone: [facility] 03-03-2022 11:38-0500 Body weight 108.[address] Chris Rosa Work Phone: [facility] 03-03-2022 11:38-0500 Diastolic blood pressure 93 mm[Hg] Dr. Chris Rosa Work Phone: [facility] 03-03-2022 11:38-0500 Heart rate 127 /min Dr. Chris Rsoa Work Phone: [facility] 03-03-2022 11:38-0500 Respiratory rate 20 /min Dr. Chris Rosa Work Phone: [facility] 03-03-2022 11:38-0500 SaO2% (BldA) [Mass fraction] 93 % Dr. Chris Rosa Work Phone: [facility] 03-03-2022 11:38-0500 Systolic blood pressure 155 mm[Hg] Dr. Chirs Rosa Work Phone: [facility] 07-20-2021 15:23-0400 Body height 154.[address] Chris Rosa Work Phone: [facility] Work Phone: 07-20-2021 15:23-0400 Body weight 104.[address] Chris Rosa Work Phone: [facility] Work Phone: 05-06-2021 11:41-0400 Body height 154.[address] Chris Rosa Work Phone: [facility] Work Phone: 05-06-2021 11:41-0400 Body mass index (BMI) [Ratio] 44 kg/m2 Dr. Chris Rosa Work Phone: [facility] Work Phone: 05-06-2021 11:41-0400 Body weight 105.[address] Chris Rosa Work Phone: [facility] Work Phone: 05-06-2021 11:41-0400 Diastolic blood pressure 90 mm[Hg] Dr. Chris Rosa Work Phone: [facility] Work Phone: 05-06-2021 11:41-0400 Systolic blood pressure 136 mm[Hg] Dr. Chris Rosa Work Phone: [facility] Work Phone: 03-08-2021 11:15-0500 Body mass index (BMI) [Ratio] 39 kg/m2 Dr. Crhis Rosa Work Phone: [facility] Work Phone: 03-08-2021 11:08-0500 Body weight 101.[address] Chris Rosa Work Phone: [facility] Work Phone: 03-08-2021 11:08-0500 Diastolic blood pressure 62 mm[Hg] Dr. Chris Rosa Work Phone: [facility] Work Phone: 03-08-2021 11:08-0500 Heart rate 84 /min Dr. Chris Rosa Work Phone: [facility] Work Phone: 03-08-2021 11:08-0500 Systolic blood pressure 118 mm[Hg] Dr. Chris Rosa Work Phone: [facility] Work Phone: Encounters Encounter Date Encounter Type Care Provider Facility Start: 11-06-2024 ambulatory Chris Rosa Facilit y:[facility] Start: 10-09-2024 End: 10-09-[address] Chris Rosa MD Work Phone: -Cat Scan [facility] Start: 10-09-2024 End: 10-09-[address] Rell Aguayo MD -Cat Scan [facility] Work Phone: Start: 10-09-2024 End: 10-09-2024 ambulatory Chris Rosa Facility:[facility] Start: 08-05-2024 End: 08-05-[address] Chris Rosa MD Work Phone: [facility] Work Phone: Start: 08-05-2024 End: 08-05-[address] Kenzie Bonilla MD -Outpatient Breast Imaging Work Phone: Start: 08-05-2024 End: 08-05-2024 ambulatory Kenzie Bonilla Facility:[facility] Start: 06-25-2024 End: 06-25-[address] Chris Rosa MD Work Phone: [facility] Work Phone: Start: 06-25-2024 End: 06-25-[address] Kenzie Bonilla MD -Ultrasound, [facility] Work Phone: Start: 06-25-2024 End: 06-25-2024 ambulatory Kenzie Bonilla Facility:[facility] Start: 06-19-2024 End: 06-19-[address] Kenzie Bonilla MD -[facility] Work Phone: Start: 06-19-2024 End: 06-19-[address] Kenzie Bonilla MD [facility] Start: 06-19-2024 End: 06-19-2024 ambulatory Kenzie Bonilla Facility:[facility] Start: 05-07-2024 End: 05-07-[address] Chris Rosa MD Work Phone: [facility] Work Phone: Start: 05-07-2024 End: 05-07-[address] Chris Rosa MD -Laboratory, [facility] Start: 05-07-2024 End: 05-07-2024 ambulatory Chris Rosa Facility:[facility] Start: 03-01-2024 End: 03-01-[address] Vicente Adorno MD -[facility] Work Phone: Start: 03-01-2024 End: 03-01-2024 ambulatory [facility] Facility:[facility] Start: 02-20-2024 End: 02-20-[address] Vicente Adorno MD -Laboratory, [facility] Start: 02-20-2024 End: 02-20-2024 ambulatory [facility] Facility:[facility] Start: 11-23-2023 End: 11-23-2023 ambulatory Vicente Adorno Facility:[facility] Start: 07-24-2023 End: 07-24-2023 ambulatory ROBERT JOHNSON Facility:[facility] Start: 07-24-2023 End: 07-24-2023 Subsequent hospital visit by physician Robert Johnson MD Work Phone: Ambulatory Surgery Comment on above: Encounter for screen ing for malignant neoplasm of colon [Z12.11] Start: 06-21-2023 Telephone encounter Tori Benton [facility] Comment on above: Lap rose, ERCP travis rds Start: 06-21-2023 End: 06-21-2023 ambulatory [facility] Start: 06-21-2023 End: 06-21-2023 Office outpatient visit 15 minutes Jarrod Collazo MD Work Phone: [facility] [place] Comment on above: Hypothyroidism, unsp ecified type (Primary Dx); Deficiency of multiple nutrient elements; Pre-diabetes; Class 1 obesity due to excess calories with serious comorbidity and body mass index (BMI) of 33.0 to 33.9 in adult Start: 06-16-2023 End: 12-27-2023 Telephone encounter Robert Johnson MD Work Phone: General Surgery Comment on above: 07/24/2023 [facility] Start: 06-15-2023 End: 06-15-2023 ambulatory ROBERT JOHNSON Facility:[facility] Start: 06-15-2023 End: 06-15-2023 Patient encounter procedure Robert Johnson MD Work Phone: General Surgery Comment on above: Encounter for screen ing for malignant neoplasm of colon (Primary Dx) Start: 06-14-2023 End: 06-15-2023 ambulatory CHRIS MOE [facility] Start: 05-10-2023 Non-patient / Non-visit Dr. Eilzabeth Rosa Work Phone: [facility] Start: 05-10-2023 End: 05-10-2023 Admission to same day surgery center Dr. Chris Rosa Work Phone: [facility]-Endoscopy Work Phone: Start: 05-10-2023 End: 05-10-[address] Chris Rosa Work Phone: [facility] Work Phone: Start: 03-28-2023 End: 03-28-[address] Chris Rosa Work Phone: [facility] Work Phone: Start: 03-02-2023 End: 03-02-[address] Chris Rosa Work Phone: [facility] Work Phone: Start: 02-28-2023 End: 02-28-[address] Chris Rosa Work Phone: [facility]atory, [facility] Start: 02-27-2023 End: 02-27-[address] Chris Rosa Work Phone: [facility] Work Phone: Start: 02-09-2023 Non-patient / Non-visit Dr. Elizabeth Rosa Work Phone: [facility] Start: 02-08-2023 Non-patient / Non-visit Dr. Elizabeth Rosa Work Phone: [facility] Start: 02-08-2023 Non-patient / Non-[facility] Start: 02-08-2023 Non-patient / Non-visit Dr. Elizabeth Rosa Work Phone: [facility] Work Phone: Start: 02-07-2023 Non-patient / Non-visit Dr. Elizabeth Rosa Work Phone: [facility] Start: 02-07-2023 Non-patient / Non-visit Dr. Elizabeth Rosa Work Phone: [facility] Work Phone: Start: 02-07-2023 End: 02-07-2023 Non-patient / Non-visit Dr. Chris Rosa Work Phone: [facility] Work Phone: Start: 02-06-2023 Non-patient / Non-visit Dr. Elizabeth Rosa Work Phone: [facility] Start: 02-06-2023 Non-patient / Non-visit Dr. Elizabeth Rosa Work Phone: [facility] Work Phone: Start: 02-05-2023 Non-patient / Non-visit Dr. Elizabeth Rosa Work Phone: [facility] Start: 02-05-2023 End: 02-09-2023 Evaluation and management of inpatient Dr. 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 Work Phone: [facility] [place] Comment on above: Deficiency of multip le nutrient elements; Hypothyroidism, unspecified type; Class 1 obesity due to excess calories with body mass index (BMI) of 34.0 to 34.9 in adult, unspecified whether serious comorbidity present Start: 12-21-2022 Telephone encounter Radha Canoruben yvonne JEWELL Work Phone: [facility] [place] Comment on above: Abnormal Lab (Low H/ H, low normal ferritin, iron) Start: 12-20-2022 End: 12-21-2022 ambulatory CHRIS ROSA [facility] Start: 10-31-2022 End: 10-31-[address] [facility] Work Phone: Start: 10-25-2022 End: 10-25-[address] Chris Rosa Work Phone: [facility] Work Phone: Start: 10-25-2022 End: 10-25-[address] Chris Rosa Work Phone: [facility] Start: 10-20-2022 End: 10-20-[address] Chris Rosa Work Phone: [facility] Work Phone: Start: 10-11-2022 End: 10-11-[address] Crhis Rosa Work Phone: [facility] Work Phone: Start: 09-29-2022 End: 09-29-[address] Chris Rosa Work Phone: [facility] Work Phone: Start: 09-22-2022 End: 09-22-[address] Chris Rosa Work Phone: [facility] Work Phone: Start: 08-30-2022 End: 08-30-2022 ambulatory [facility] Start: 08-30-2022 End: 08-30-2022 Office outpatient visit 15 minutes Ekaterina Coats CNP Work Phone: [facility] Comment on above: Hypothyroidism, unsp ecified type (Primary Dx); Deficiency of multiple nutrient elements; Class 2 severe obesity due to excess calories with serious comorbidity and body mass index (BMI) of 36.0 to 36.9 in adult (HCC); Iron deficiency anemia, unspecified iron deficiency anemia type Start: 08-30-2022 Telephone encounter iAlyn Latrice RD Work Phone: [facility] Comment on above: Abnormal Lab Start: 08-29-2022 End: 08-30-2022 Transcribe Orders Kylie Baum CELLAR WORKER Work Phone: [facility] Comment on above: Hypokalemia (Primary Dx); Hypothyroidism, unspecified; Deficiency of multiple nutrient elements; Morbid (severe) obesity due to excess calories (HCC); Body mass index (BMI) 39.0-39.9, adult; Iron deficiency anemia, unspecified Start: 08-04-2022 End: 08-04-[address] Chris Rosa Work Phone: [facility] Work Phone: Start: 08-04-2022 End: 08-04-[address] Chris Rosa Work Phone: [facility] Start: 07-13-2022 End: 07-13-[address] Chris Rosa Work Phone: [facility] Work Phone: Start: 07-13-2022 End: 07-13-[address] [facility] Start: 06-29-2022 End: 06-30-2022 ambulatory [facility] Start: 06-29-2022 End: 06-29-2022 ambulatory [facility] Start: 06-29-2022 End: 06-29-2022 Postop follow up visit related to original px Jarrod Collazo MD Work Phone: [facility] Comment on above: Hypokalemia (Primary Dx); Hypothyroidism, unspecified type; Deficiency of multiple nutrient elements; Class 2 severe obesity due to excess calories with serious comorbidity and body mass index (BMI) of 39.0 to 39.9 in adult ([facility]) Start: 06-23-2022 Telephone encounter Ailyn Pollard RD Work Phone: [facility] Comment on above: Abnormal Lab Start: 06-22-2022 End: 06-22-2022 ambulatory Ekaterina Wolfgang Wharton BULK TRUCK DRIVER - HANDLE ASSEMBLER Work Phone: [facility] Comment on above: Arrived Start: 06-13-2022 End: 06-13-[address] Chris Rosa Work Phone: [facility] Start: 06-06-2022 End: 06-06-[address] Chris Rosa Work Phone: [facility] Work Phone: Start: 06-06-2022 End: 06-06-[address] Chris Rosa Work Phone: [facility]-Outpatient Breast Imaging Start: 06-01-2022 End: 06-01-2022 Postop follow up visit related to original px Jarrod Collazo MD Work Phone: [facility] Comment on above: Hypothyroidism, unsp ecified type (Primary Dx); Morbid obesity with BMI of 40.0-44.9, adult ([facility]); Deficiency of multiple nutrient elements Start: 05-25-2022 End: 05-25-2022 Evaluation and management of inpatient Ach Fl Exam Room 2 [facility] X-[facility] Comment on above: Arrived Start: 05-24-2022 End: 05-25-2022 Evaluation and management of inpatient Jarrod Collazo MD Work Phone: [facility] Comment on above: Morbid obesity with BMI of 45.0-49.9, adult (CMS/HCC) (HCC) (Primary Dx); Morbid (severe) obesity due to excess calories (HCC) Start: 05-05-2022 ambulatory Marissa JONES Work Phone: [facility] [place] Comment on above: Morbid obesity with BMI of 45.0-49.9, adult (CMS/HCC) (HCC) (Primary Dx) Start: 05-04-2022 End: 05-04-2022 Patient encounter status Ach 1 [facility] 95 Arch X-r ay Start: 05-04-2022 End: 05-04-2022 Subsequent hospital visit by physician Ach 95 Arch Xr Exam Room 1 [facility] 95 Arch X-ray Comment on above: Morbid obesity due t o excess calories (HCC); Pre-diabetes; GERD without esophagitis; Pre-operative laboratory examination Start: 05-04-2022 End: 05-04-2022 Office outpatient visit 15 minutes Jarrod Collazo MD Work Phone: [facility] [place] Comment on above: Pre-diabetes (Primar y Dx); Hiatal hernia; GERD without esophagitis; Morbid obesity with BMI of 45.0-49.9, adult (CMS/HCC) (HCC) Start: 05-02-2022 Telephone encounter Tori Benton [facility] [place] Comment on above: Anticoagulation (Alejandrina enox) Start: 04-07-2022 End: 04-07-[address] Chris Rosa Work Phone: [facility] Work Phone: Start: 04-07-2022 End: 04-07-[address] Chris Rosa [facility] Start: 03-28-2022 End: 03-28-2022 Office outpatient new 45 minutes Kristen Marcus MD Work Phone: [facility] Comment on above: Morbid obesity due t o excess calories (HCC) (Primary Dx); Pre-diabetes; Pre-operative clearance; History of head and neck radiation Start: 03-28-2022 End: 03-28-2022 Preoperative state Kristen Marcus MD Work Phone: [facility] Start: 03-23-2022 End: 03-23-2022 Subsequent hospital visit by physician Ekaterina Wharton BULK TRUCK DRIVER - HANDLE ASSEMBLER Work Phone: [facility] X-ray Imaging Comment on above: Heartburn Generalized abdomina l pain Start: 03-21-2022 Telephone encounter Suzanne Treviño LPN [facility] [place] Comment on above: Other (INITIAL SCHED ULING NEW EPIC) Start: 03-18-2022 ambulatory Ekaterina Wharton BULK TRUCK DRIVER - HANDLE ASSEMBLER Work Phone: [facility] [place] Start: 03-18-2022 Telephone encounter Ailyn Latrice JEWELL Work Phone: [facility] [place] Comment on above: Abnormal Lab (TSH, i raquel and ferritin. ) Start: 03-18-2022 End: 03-18-2022 Subsequent hospital visit by physician Jarrod Collazo MD Work Phone: [facility] Endoscopy Comment on above: Dyspepsia Start: 03-17-2022 End: 03-17-[address] Chris Rosa Work Phone: [facility] Work Phone: Start: 03-17-2022 End: 03-17-[address] Chris Rosa Work Phone: [facility] Start: 03-11-2022 Transcribe Orders Ekaterina adam BULK TRUCK DRIVER - HANDLE ASSEMBLER Work Phone: [employer] Comment on above: Heartburn (Primary D x); Generalized abdominal pain Start: 03-09-2022 End: 03-09-2022 Office outpatient visit 15 minutes Cayla Villavicencio MD Work Phone: [facility] Comment on above: Pre-diabetes (Primar y Dx); BMI 45.0-49.9, adult (CMS/HCC) (HCC); Class 3 severe obesity with serious comorbidity and body mass index (BMI) of 45.0 to 49.9 in adult, unspecified obesity type (HCC) Start: 03-03-2022 End: 03-03-[address] Chris Rosa Work Phone: [facility] Endocrinology Start: 03-01-2022 End: 03-01-[address] Chris Rosa Work Phone: [facility] Work Phone: Start: 03-01-2022 End: 03-01-[address] Chris Rosa Work Phone: [facility] [place] Start: 12-29-2021 End: 12-29-2021 ambulatory [facility] Work Phone: Start: 12-29-2021 End: 12-29-2021 Patient encounter procedure [facility] [place] Start: 12-22-2021 [facility] Start: 12-03-2021 End: 12-03-2021 ambulatory [facility] Work Phone: Start: 12-03-2021 End: 12-03-2021 Patient encounter procedure [facility] [place] Start: 11-03-2021 ambulatory [facility] Start: 11-03-2021 End: 11-03-2021 Subsequent hospital visit by physician [facility] MD [facility] Start: 09-08-2021 End: 09-08-2021 Patient encounter procedure [facility] Start: 07-20-2021 End: 07-20-[address] Chris [facility] Start: 07-14-2021 End: 07-14-[address] Chris Rosa Work Phone: [facility] Start: 06-03-2021 End: 06-03-[address] Chris Rosa Work Phone: [facility] Start: 05-06-2021 End: 05-06-[address] Chris Rosa Work Phone: [facility] Start: 04-14-2021 End: 04-14-[address] Chris Rosa Work Phone: [facility]-Outpatient Breast Imaging Start: 03-08-2021 End: 03-08-[address] Chris Rosa Work Phone: [facility] Endocrinology Start: 03-05-2021 End: 03-05-[address] Chris Rosa Work Phone: [facility] Procedures Date Procedure Procedure Detail Performing Clinician Start: 10-09-2024 CT of head without contrast Dr. Chris faustin MD Work Phone: Start: 08-05-[address] Chris Rosa MD Work Phone: Start: 06-25-[address] Chris Rosa MD Work Phone: Start: 05-07-2024 Total iron binding capacity measurement Dr. Chris Rosa MD Work Phone: Start: 05-07-2024 Vitamin D, 25-hydroxy measurement Dr. Chris Rosa MD Work Phone: Comment on above: Vitamin D StatusDeficiency: <20 ng/mL (5 0nmol/L)Insufficiency: 20-30 ng/mL (50-75 nmol/L)Sufficiency: 30-100 ng/mL (75-250 nmol/L)Toxicity: >100 ng/mL (>250 nmol/L) Start: 07-24-2023 Colonoscopy flx dx w/collj spec when pfrmd Robert Johnson MD Work Phone: Start: 07-24-2023 Colonoscopy Robert Johnson MD Work Phone: Start: 06-14-2023 Lipid 1996 panel - Serum or Plasma Ekaterina Dio BULK TRUCK DRIVER - HANDLE ASSEMBLER Work Phone: Start: 05-10-2023 End: 05-10-[address] Chris Rosa Work Phone: Start: 05-10-[address] Chris Rosa Work Phone: Start: 02-08-2023 End: 02-08-[address] Chris Rosa Work Phone: Start: 02-08-[address] Chris Rosa Work Phone: Start: 02-07-[address] Chris Rosa Work Phone: Start: 02-07-[address] Chris Rosa Work Phone: Start: 02-07-2023 Total cholecystectomy and exploration of common bile duct Dr. Chris Rosa Work Phone: Start: 02-06-2023 End: 02-06-[address] Chris Rosa Work Phone: Start: 02-06-[address] Chris Rosa Work Phone: Start: 02-06-[address] Chris blas Work Phone: Start: 02-05-2023 Computed tomography of abdomen and pelvis with intravenous contrast Dr. Chris Rosa Work Phone: Start: 02-05-[address] Chris Rosa Work Phone: Start: 12-20-2022 Lipid 1996 panel - Serum or Plasma Ekaterina Dio BULK TRUCK DRIVER - HANDLE ASSEMBLER Work Phone: Start: 08-29-2022 Comprehensive metabolic panel Kylie stephen CELLAR WORKER Work Phone: Start: 06-06-2022 End: 06-06-[address] Chris Rosa Work Phone: Start: 05-25-2022 Radiologic exam upr gi trc single contrast study Janette Mccormick MD Work Phone: Start: 05-25-2022 Basic metabolic panel calcium total Janette Mccormick MD Work Phone: Start: 05-24-2022 Basic metabolic panel calcium total Janette Mccormick MD Work Phone: Start: 05-24-2022 End: 05-24-2022 Laps gstrc rstrictiv px longitudinal gastrectomy Jarrod Collazo MD Work Phone: Start: 05-24-2022 End: 05-24-2022 Unlis laparoscopic procedure liver Jarrod Collazo MD Work Phone: Start: 05-24-2022 Urine test visual color cmprsn meths Joaquin Peralta MD Work Phone: Start: 05-04-2022 Radiologic exam chest 2 views Ekaterina Wolfgang bustamante BULK TRUCK DRIVER - Cycle Work Phone: Start: 03-28-2022 Ecg routine ecg w/least 12 lds w/i&r Kristen Marcus MD Work Phone: Start: 03-23-2022 Radiologic exam upr gi trc single contrast study Ekaterina Wolfgang Wharton BULK TRUCK DRIVER - HANDLE ASSEMBLER Work Phone: Start: 03-23-2022 Us abdominal real time w/image documentation Ekaterinaaksey Wharton BULK TRUCK DRIVER - HANDLE ASSEMBLER Work Phone: Start: 04-14-2021 End: 04-14-[address] Chris Rosa Work Phone: History of cholecystectomy S/P cholecyste ctomy Dr. Chris Rosa Work Phone: Comment on above: This is a 47-year-old female who present s for her first postoperative visit following laparoscopic cholecystectomy on 02/08/2023 after initial diagnosis of gallstone pancreatitis with choledocholithiasis. Perioperatively she required 2 separate ERCP procedures due to cholangiogram phytic findings of persistent choledocholithiasis. Overall, Mrs. Choudhury reports that she is doing well apart from some very superficial tenderness to her supraumbilical port site incision. Indeed, on exam she is well-healing apart from a small area along this incision line that appears locally inflamed. It is difficult to determine if she had some trauma to this site versus is experiencing spitting of the suture, versus other . I have shared with her that I would like to have her begin triple antibiotic ointment to these incision areas and shower regularly lightly scrubbing the incision sites. Should she experience any obvious suture spitting she is welcome to call and we will arrange for a visit to trim any suture material. I reviewed with her her pathology which was consistent with chronic cholecystitis. At this point her only mandatory need for follow-up is through gastroenterology for removal of her common bile duct stent. Interoffice communication has been sent for this purpose. Plan of Treatment Date Care Activity Detail Author Start: 2035 RSV Immunization aged 60 or older (1 - 1-dose 60+ series) RSV Immunization aged 60 or older (1 - 1-dose 60+ series) [facility] Start: 06-13-2028 Lipid panel [facility] Start: 12-21-2027 Lipid panel Lipid Panel [facility] Start: 06-13-2026 Diabetes Screening Diabetes Screening [facility] Start: 05-25-2025 Zoster Vaccines (1 of 2) Zoster Vaccines (1 of 2) [facility] Start: 08-05-2024 MG Breast - bilateral Screening [facility] Start: 07-23-2024 Screening for malignant neoplasm of colon [facility] Start: 12-22-2023 End: 06-20-2024 25-hydroxyvitamin D3 [Mass/volume] in Serum or Plasma Vitamin D Deficiency Screening (Vit D 25) Lab Routine Deficiency of multiple nutrient elements Pre-diabetes Class 1 obesity due to excess calories with serious comorbidity and body mass index (BMI) of 33.0 to 33.9 in adult Hypothyroidism, unspecified type Expected: 12/22/2023 (Approximate), Expires: 06/20/2024 [facility] Comment on above: Expected: 12/22/2023 (Approximate), Expi res: 06/20/2024 Start: 12-22-2023 End: 06-20-2024 CBC panel - Blood by Automated count CBC Lab Routine Deficiency of multiple nutrient elements Pre-diabetes Class 1 obesity due to excess calories with serious comorbidity and body mass index (BMI) of 33.0 to 33.9 in adult Hypothyroidism, unspecified type Expected: 12/22/2023 (Approximate), Expires: 06/20/2024 [facility] Comment on above: Expected: 12/22/2023 (Approximate), Expi res: 06/20/2024 Start: 12-22-2023 End: 06-20-2024 Cobalamin (Vitamin B12) [Mass/volume] in Serum or Plasma Vitamin B12 Lab Routine Deficiency of multiple nutrient elements Pre-diabetes Class 1 obesity due to excess calories with serious comorbidity and body mass index (BMI) of 33.0 to 33.9 in adult Hypothyroidism, unspecified type Expected: 12/22/2023 (Approximate), Expires: 06/20/2024 [facility] Comment on above: Expected: 12/22/2023 (Approximate), Expi res: 06/20/2024 Start: 12-22-2023 End: 06-20-2024 Comprehensive metabolic 1998 panel - Serum or Plasma Comprehensive metabolic panel Lab Routine Deficiency of multiple nutrient elements Pre-diabetes Class 1 obesity due to excess calories with serious comorbidity and body mass index (BMI) of 33.0 to 33.9 in adult Hypothyroidism, unspecified type Expected: 12/22/2023 (Approximate), Expires: 06/20/2024 [facility] Comment on above: Expected: 12/22/2023 (Approximate), Expi res: 06/20/2024 Start: 12-22-2023 End: 06-20-2024 Ferritin [Mass/volume] in Serum or Plasma Ferritin Lab Routine Deficiency of multiple nutrient elements Pre-diabetes Class 1 obesity due to excess calories with serious comorbidity and body mass index (BMI) of 33.0 to 33.9 in adult Hypothyroidism, unspecified type Expected: 12/22/2023 (Approximate), Expires: 06/20/2024 [facility] Comment on above: Expected: 12/22/2023 (Approximate), Expi res: 06/20/2024 Start: 12-22-2023 End: 06-20-2024 Folate [Mass/volume] in Serum or Plasma Folate Lab Routine Deficiency of multiple nutrient elements Pre-diabetes Class 1 obesity due to excess calories with serious comorbidity and body mass index (BMI) of 33.0 to 33.9 in adult Hypothyroidism, unspecified type Expected: 12/22/2023 (Approximate), Expires: 06/20/2024 [facility] Comment on above: Expected: 12/22/2023 (Approximate), Expi res: 06/20/2024 Start: 12-22-2023 End: 06-20-2024 Iron and Iron binding capacity panel - Serum or Plasma Iron Lab Routine Deficiency of multiple nutrient elements Pre-diabetes Class 1 obesity due to excess calories with serious comorbidity and body mass index (BMI) of 33.0 to 33.9 in adult Hypothyroidism, unspecified type Expected: 12/22/2023 (Approximate), Expires: 06/20/2024 [facility] Comment on above: Expected: 12/22/2023 (Approximate), Expi res: 06/20/2024 Start: 12-22-2023 End: 06-20-2024 Lipid 1996 panel - Serum or Plasma Lipid panel Lab Routine Deficiency of multiple nutrient elements Pre-diabetes Class 1 obesity due to excess calories with serious comorbidity and body mass index (BMI) of 33.0 to 33.9 in adult Hypothyroidism, unspecified type Expected: 12/22/2023 (Approximate), Expires: 06/20/2024 [facility] Comment on above: Expected: 12/22/2023 (Approximate), Expi res: 06/20/2024 Start: 12-22-2023 End: 06-20-2024 Magnesium [Mass/volume] in Serum or Plasma Magnesium Lab Routine Deficiency of multiple nutrient elements Pre-diabetes Class 1 obesity due to excess calories with serious comorbidity and body mass index (BMI) of 33.0 to 33.9 in adult Hypothyroidism, unspecified type Expected: 12/22/2023 (Approximate), Expires: 06/20/2024 [facility] Comment on above: Expected: 12/22/2023 (Approximate), Expi res: 06/20/2024 Start: 12-22-2023 End: 06-20-2024 Vitamin B1, whole blood Vitamin B1, whole blood Lab Routine Deficiency of multiple nutrient elements Pre-diabetes Class 1 obesity due to excess calories with serious comorbidity and body mass index (BMI) of 33.0 to 33.9 in adult Hypothyroidism, unspecified type Expected: 12/22/2023 (Approximate), Expires: 06/20/2024 [facility] Comment on above: Expected: 12/22/2023 (Approximate), Expi res: 06/20/2024 Start: 12-22-2023 End: 06-20-2024 Zinc Zinc Lab Routine Deficiency of multiple nutrient elements Pre-diabetes Class 1 obesity due to excess calories with serious comorbidity and body mass index (BMI) of 33.0 to 33.9 in adult Hypothyroidism, unspecified type Expected: 12/22/2023 (Approximate), Expires: 06/20/2024 [facility] Work Phone: Comment on above: Expected: 12/22/2023 (Approximate), Expi res: 06/20/2024 Start: 11-29-2023 End: 11-29-2023 Patient encounter procedure 11/29/2023 1:30 PM EDT Office Visit [facility] [address] [place] [address] Cayla Villavicencio MD [address] [place], [place] [id number] [facility] Start: 10-22-2023 Covid-19 Vaccine ( season) Covid-19 Vaccine () [facility] Start: 10-22-2023 Influenza vaccination [facility] Start: 07-24-2023 End: 07-24-2023 Patient encounter procedure 07/24/2023 11:00 AM EDT Appointment Ambulatory Surgery [address] [place], [place] [id number] Robert Johnson MD [address] [place], [place] [id number] [facility] Start: 06-27-2023 End: 12-28-2023 25-hydroxyvitamin D3 [Mass/volume] in Serum or Plasma Vitamin D Deficiency Screening (Vit D 25) Lab Routine Deficiency of multiple nutrient elements Hypothyroidism, unspecified type Class 1 obesity due to excess calories with body mass index (BMI) of 34.0 to 34.9 in adult, unspecified whether serious comorbidity present Expected: 06/27/2023 (Approximate), Expires: 12/28/2023 [facility] Comment on above: Expected: 06/27/2023 (Approximate), Expi res: 12/28/2023 Start: 06-27-2023 End: 12-28-2023 CBC panel - Blood by Automated count CBC Lab Routine Deficiency of multiple nutrient elements Hypothyroidism, unspecified type Class 1 obesity due to excess calories with body mass index (BMI) of 34.0 to 34.9 in adult, unspecified whether serious comorbidity present Expected: 06/27/2023 (Approximate), Expires: 12/28/2023 [facility] Comment on above: Expected: 06/27/2023 (Approximate), Expi res: 12/28/2023 Start: 06-27-2023 End: 12-28-2023 Cobalamin (Vitamin B12) [Mass/volume] in Serum or Plasma Vitamin B12 Lab Routine Deficiency of multiple nutrient elements Hypothyroidism, unspecified type Class 1 obesity due to excess calories with body mass index (BMI) of 34.0 to 34.9 in adult, unspecified whether serious comorbidity present Expected: 06/27/2023 (Approximate), Expires: 12/28/2023 [facility] Comment on above: Expected: 06/27/2023 (Approximate), Expi res: 12/28/2023 Start: 06-27-2023 End: 12-28-2023 Comprehensive metabolic 1998 panel - Serum or Plasma Comprehensive metabolic panel Lab Routine Deficiency of multiple nutrient elements Hypothyroidism, unspecified type Class 1 obesity due to excess calories with body mass index (BMI) of 34.0 to 34.9 in adult, unspecified whether serious comorbidity present Expected: 06/27/2023 (Approximate), Expires: 12/28/2023 [facility] Comment on above: Expected: 06/27/2023 (Approximate), Expi res: 12/28/2023 Start: 06-27-2023 End: 12-28-2023 Ferritin [Mass/volume] in Serum or Plasma Ferritin Lab Routine Deficiency of multiple nutrient elements Hypothyroidism, unspecified type Class 1 obesity due to excess calories with body mass index (BMI) of 34.0 to 34.9 in adult, unspecified whether serious comorbidity present Expected: 06/27/2023 (Approximate), Expires: 12/28/2023 [facility] Comment on above: Expected: 06/27/2023 (Approximate), Expi res: 12/28/2023 Start: 06-27-2023 End: 12-28-2023 Folate [Mass/volume] in Serum or Plasma Folate Lab Routine Deficiency of multiple nutrient elements Hypothyroidism, unspecified type Class 1 obesity due to excess calories with body mass index (BMI) of 34.0 to 34.9 in adult, unspecified whether serious comorbidity present Expected: 06/27/2023 (Approximate), Expires: 12/28/2023 [facility] Comment on above: Expected: 06/27/2023 (Approximate), Expi res: 12/28/2023 Start: 06-27-2023 End: 12-28-2023 Iron and Iron binding capacity panel - Serum or Plasma Iron Lab Routine Deficiency of multiple nutrient elements Hypothyroidism, unspecified type Class 1 obesity due to excess calories with body mass index (BMI) of 34.0 to 34.9 in adult, unspecified whether serious comorbidity present Expected: 06/27/2023 (Approximate), Expires: 12/28/2023 [facility] Comment on above: Expected: 06/27/2023 (Approximate), Expi res: 12/28/2023 Start: 06-27-2023 End: 12-28-2023 Lipid 1996 panel - Serum or Plasma Lipid panel Lab Routine Deficiency of multiple nutrient elements Hypothyroidism, unspecified type Class 1 obesity due to excess calories with body mass index (BMI) of 34.0 to 34.9 in adult, unspecified whether serious comorbidity present Expected: 06/27/2023 (Approximate), Expires: 12/28/2023 [facility] Comment on above: Expected: 06/27/2023 (Approximate), Expi res: 12/28/2023 Start: 06-27-2023 End: 12-28-2023 Magnesium [Mass/volume] in Serum or Plasma Magnesium Lab Routine Deficiency of multiple nutrient elements Hypothyroidism, unspecified type Class 1 obesity due to excess calories with body mass index (BMI) of 34.0 to 34.9 in adult, unspecified whether serious comorbidity present Expected: 06/27/2023 (Approximate), Expires: 12/28/2023 [facility] Comment on above: Expected: 06/27/2023 (Approximate), Expi res: 12/28/2023 Start: 06-27-2023 End: 12-28-2023 Vitamin B1, whole blood Vitamin B1, whole blood Lab Routine Deficiency of multiple nutrient elements Hypothyroidism, unspecified type Class 1 obesity due to excess calories with body mass index (BMI) of 34.0 to 34.9 in adult, unspecified whether serious comorbidity present Expected: 06/27/2023 (Approximate), Expires: 12/28/2023 [facility] Comment on above: Expected: 06/27/2023 (Approximate), Expi res: 12/28/2023 Start: 06-27-2023 End: 12-28-2023 Zinc Zinc Lab Routine Deficiency of multiple nutrient elements Hypothyroidism, unspecified type Class 1 obesity due to excess calories with body mass index (BMI) of 34.0 to 34.9 in adult, unspecified whether serious comorbidity present Expected: 06/27/2023 (Approximate), Expires: 12/28/2023 [facility] Work Phone: Comment on above: Expected: 06/27/2023 (Approximate), Expi res: 12/28/2023 Start: 06-21-2023 End: 06-21-2023 Patient encounter procedure 06/21/2023 9:40 AM EDT Office Visit [facility] [address] [place] [id number] Jarrod Collazo MD [address] [place] [address] [address] [place], [place] [id number] [facility] Start: 06-07-2023 Screening for malignant neoplasm of breast Mammogram [facility] Start: 05-24-2023 End: 05-24-2023 Patient encounter procedure 05/24/2023 10:00 AM EDT Office Visit [facility] [place] [address] [place] [phone] Jarrod Collazo MD [address] [facility] [address] [place], [place] [id number] [facility] Start: 05-10-2023 Patient discharge [facility] Start: 05-05-2023 Diabetes mellitus screening Diabetes Screening [facility] Start: 04-12-2023 DTaP/Tdap/Td vaccine (2 - Td or Tdap) DTaP/Tdap/Td vaccine (2 - Td or Tdap) [facility] Start: 04-12-2023 DTaP/Tdap/Td Vaccines (2 - Td or Tdap) DTaP/Tdap/Td Vaccines (2 - Td or Tdap) [facility] Start: 04-12-2023 Urine microalbumin profile DTaP,Tdap,Td Vaccine (2 - Td or Tdap) [facility] Start: 03-28-2023 End: 12-27-2023 Ferritin [Mass/volume] in Serum or Plasma Ferritin Lab Routine Low ferritin 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, unspecified type Expected: 03/28/2023, Expires: 12/27/2023 [facility] Comment on above: Expected: 03/28/2023, Expires: 4 Start: 03-28-2023 End: 12-27-2023 Hemoglobin [Mass/volume] in Blood Hemoglobin and hematocrit, blood Lab Routine Low ferritin 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, unspecified type Expected: 03/28/2023, Expires: 12/27/2023 [facility] Comment on above: Expected: 03/28/2023, Expires: 4 Start: 03-28-2023 End: 12-27-2023 Iron and Iron binding capacity panel - Serum or Plasma Iron Lab Routine Low ferritin 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, unspecified type Expected: 03/28/2023, Expires: 12/27/2023 [facility] Work Phone: Comment on above: Expected: 03/28/2023, Expires: 4 Start: 02-20-2023 Behavioral Health Screening Behavioral Health Screening [facility] Start: 02-09-2023 Patient discharge [facility] Start: 02-07-2023 [facility] Start: 02-05-2023 Following clinical pathway protocol [facility] Start: 02-05-2023 Ambulation without limitation [facility] Start: 02-05-2023 Assessment of risk of venous thromboembolism [facility] Start: 02-05-2023 Insertion of catheter into peripheral vein [facility] Start: 02-05-2023 Measuring intake and output [facility] Start: 02-05-2023 Providing care according to standard [facility] Start: 02-05-2023 Referral to gastroenterology service [facility] Start: 02-05-2023 Referral to general surgeon [facility] Start: 02-05-2023 [facility] Start: 02-05-2023 [facility] Start: 02-05-2023 Hospital admission, emergency, from emergency room, medical nature [facility] Start: 02-05-2023 Admission procedure [facility] Start: 02-05-2023 [facility] Start: 02-05-2023 Patient referral to dietitian [facility] Start: 12-27-2022 End: 12-27-2022 Patient encounter procedure [facility] Start: 12-20-2022 End: 12-20-2022 Patient encounter procedure 12/20/2022 8:00 AM EDT Appointment [facility] X-ray Imaging [address] [place] [address] Ekaterina Wharton, [employer]K [employer]IVER - HANDLE ASSEMBLER [address] [id number] [facility] Start: 11-30-2022 End: 08-31-2023 25-hydroxyvitamin D3 [Mass/volume] in Serum or Plasma Vitamin D 25 hydroxy Lab Routine Deficiency of multiple nutrient elements Class 2 severe obesity due to excess calories with serious comorbidity and body mass index (BMI) of 36.0 to 36.9 in adult (HCC) Expected: 11/30/2022 (Approximate), Expires: 08/31/2023 [facility] Comment on above: Expected: 11/30/2022 (Approximate), Expi res: 08/31/2023 Start: 11-30-2022 End: 08-31-2023 CBC panel - Blood by Automated count CBC Lab Routine Deficiency of multiple nutrient elements Class 2 severe obesity due to excess calories with serious comorbidity and body mass index (BMI) of 36.0 to 36.9 in adult (HCC) Expected: 11/30/2022 (Approximate), Expires: 08/31/2023 [facility] Comment on above: Expected: 11/30/2022 (Approximate), Expi res: 08/31/2023 Start: 11-30-2022 End: 08-31-2023 Cobalamin (Vitamin B12) [Mass/volume] in Serum or Plasma Vitamin B12 Lab Routine Deficiency of multiple nutrient elements Class 2 severe obesity due to excess calories with serious comorbidity and body mass index (BMI) of 36.0 to 36.9 in adult ([facility]) Expected: 11/30/2022 (Approximate), Expires: 08/31/2023 [facility] Comment on above: Expected: 11/30/2022 (Approximate), Expi res: 08/31/2023 Start: 11-30-2022 End: 08-31-2023 Comprehensive metabolic 1998 panel - Serum or Plasma Comprehensive metabolic panel Lab Routine Deficiency of multiple nutrient elements Class 2 severe obesity due to excess calories with serious comorbidity and body mass index (BMI) of 36.0 to 36.9 in adult ([facility]) Expected: 11/30/2022 (Approximate), Expires: 08/31/2023 [facility] Comment on above: Expected: 11/30/2022 (Approximate), Expi res: 08/31/2023 Start: 11-30-2022 End: 08-31-2023 Ferritin [Mass/volume] in Serum or Plasma Ferritin Lab Routine Deficiency of multiple nutrient elements Class 2 severe obesity due to excess calories with serious comorbidity and body mass index (BMI) of 36.0 to 36.9 in adult ([facility]) Expected: 11/30/2022 (Approximate), Expires: 08/31/2023 [facility] Comment on above: Expected: 11/30/2022 (Approximate), Expi res: 08/31/2023 Start: 11-30-2022 End: 08-31-2023 Folate [Mass/volume] in Serum or Plasma Folate Lab Routine Deficiency of multiple nutrient elements Class 2 severe obesity due to excess calories with serious comorbidity and body mass index (BMI) of 36.0 to 36.9 in adult ([facility]) Expected: 11/30/2022 (Approximate), Expires: 08/31/2023 [facility] Comment on above: Expected: 11/30/2022 (Approximate), Expi res: 08/31/2023 Start: 11-30-2022 End: 08-31-2023 Iron and Iron binding capacity panel - Serum or Plasma Iron Lab Routine Deficiency of multiple nutrient elements Class 2 severe obesity due to excess calories with serious comorbidity and body mass index (BMI) of 36.0 to 36.9 in adult ([facility]) Expected: 11/30/2022 (Approximate), Expires: 08/31/2023 [facility] Comment on above: Expected: 11/30/2022 (Approximate), Expi res: 08/31/2023 Start: 11-30-2022 End: 08-31-2023 Lipid 1996 panel - Serum or Plasma Lipid panel Lab Routine Deficiency of multiple nutrient elements Class 2 severe obesity due to excess calories with serious comorbidity and body mass index (BMI) of 36.0 to 36.9 in adult ([facility]) Expected: 11/30/2022 (Approximate), Expires: 08/31/2023 [facility] Comment on above: Expected: 11/30/2022 (Approximate), Expi res: 08/31/2023 Start: 11-30-2022 End: 08-31-2023 Magnesium [Mass/volume] in Serum or Plasma Magnesium Lab Routine Deficiency of multiple nutrient elements Class 2 severe obesity due to excess calories with serious comorbidity and body mass index (BMI) of 36.0 to 36.9 in adult ([facility]) Expected: 11/30/2022 (Approximate), Expires: 08/31/2023 [facility] Comment on above: Expected: 11/30/2022 (Approximate), Expi res: 08/31/2023 Start: 11-30-2022 End: 08-31-2023 Vitamin B1, whole blood Vitamin B1, whole blood Lab Routine Deficiency of multiple nutrient elements Class 2 severe obesity due to excess calories with serious comorbidity and body mass index (BMI) of 36.0 to 36.9 in adult ([facility]) Expected: 11/30/2022 (Approximate), Expires: 08/31/2023 [facility] Comment on above: Expected: 11/30/2022 (Approximate), Expi res: 08/31/2023 Start: 11-30-2022 End: 08-31-2023 Zinc [facility] Work Phone: Comment on above: Expected: 11/30/2022 (Approximate), Expi res: 08/31/2023 Start: 10-21-2022 COVID-19 Vaccine () COVID-19 Vaccine () [facility] Start: 10-21-2022 Influenza vaccination [facility] Start: 08-30-2022 End: 08-30-2022 Patient encounter procedure 08/30/2022 Office Visit Bariatrics 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 [place] [address] [facility] Start: 08-29-2022 End: 06-30-2023 CBC panel - Blood by Automated count CBC Lab Routine Hypothyroidism, unspecified type Deficiency of multiple nutrient elements Class 2 severe obesity due to excess calories with serious comorbidity and body mass index (BMI) of 39.0 to 39.9 in adult (HCC) Expected: 08/29/2022 (Approximate), Expires: 06/30/2023 [facility] Comment on above: Expected: 08/29/2022 (Approximate), Expi res: 06/30/2023 Start: 08-29-2022 End: 06-30-2023 Cobalamin (Vitamin B12) [Mass/volume] in Serum or Plasma Vitamin B12 Lab Routine Hypothyroidism, unspecified type Deficiency of multiple nutrient elements Class 2 severe obesity due to excess calories with serious comorbidity and body mass index (BMI) of 39.0 to 39.9 in adult (HCC) Expected: 08/29/2022 (Approximate), Expires: 06/30/2023 [facility] Comment on above: Expected: 08/29/2022 (Approximate), Expi res: 06/30/2023 Start: 08-29-2022 End: 06-30-2023 Comprehensive metabolic 1998 panel - Serum or Plasma Comprehensive metabolic panel Lab Routine Hypothyroidism, unspecified type Deficiency of multiple nutrient elements Class 2 severe obesity due to excess calories with serious comorbidity and body mass index (BMI) of 39.0 to 39.9 in adult (HCC) Expected: 08/29/2022 (Approximate), Expires: 06/30/2023 [facility] Comment on above: Expected: 08/29/2022 (Approximate), Expi res: 06/30/2023 Start: 08-29-2022 End: 06-30-2023 Ferritin [Mass/volume] in Serum or Plasma Ferritin Lab Routine Hypothyroidism, unspecified type Deficiency of multiple nutrient elements Class 2 severe obesity due to excess calories with serious comorbidity and body mass index (BMI) of 39.0 to 39.9 in adult ([facility]) Expected: 08/29/2022 (Approximate), Expires: 06/30/2023 [facility] Comment on above: Expected: 08/29/2022 (Approximate), Expi res: 06/30/2023 Start: 08-29-2022 End: 06-30-2023 Folate [Mass/volume] in Serum or Plasma Folate Lab Routine Hypothyroidism, unspecified type Deficiency of multiple nutrient elements Class 2 severe obesity due to excess calories with serious comorbidity and body mass index (BMI) of 39.0 to 39.9 in adult ([facility]) Expected: 08/29/2022 (Approximate), Expires: 06/30/2023 [employer] Comment on above: Expected: 08/29/2022 (Approximate), Expi res: 06/30/2023 Start: 08-29-2022 End: 06-30-2023 Iron and Iron binding capacity panel - Serum or Plasma Iron Lab Routine Hypothyroidism, unspecified type Deficiency of multiple nutrient elements Class 2 severe obesity due to excess calories with serious comorbidity and body mass index (BMI) of 39.0 to 39.9 in adult ([facility]) Expected: 08/29/2022 (Approximate), Expires: 06/30/2023 [employer] Comment on above: Expected: 08/29/2022 (Approximate), Expi res: 06/30/2023 Start: 08-29-2022 End: 06-30-2023 Magnesium [Mass/volume] in Serum or Plasma Magnesium Lab Routine Hypothyroidism, unspecified type Deficiency of multiple nutrient elements Class 2 severe obesity due to excess calories with serious comorbidity and body mass index (BMI) of 39.0 to 39.9 in adult ([facility]) Expected: 08/29/2022 (Approximate), Expires: 06/30/2023 [employer] Comment on above: Expected: 08/29/2022 (Approximate), Expi res: 06/30/2023 Start: 08-29-2022 End: 06-30-2023 Zinc Zinc Lab Routine Hypothyroidism, unspecified type Deficiency of multiple nutrient elements Class 2 severe obesity due to excess calories with serious comorbidity and body mass index (BMI) of 39.0 to 39.9 in adult ([facility]) Expected: 08/29/2022 (Approximate), Expires: 06/30/2023 [facility] Work Phone: Comment on above: Expected: 08/29/2022 (Approximate), Expi res: 06/30/2023 Start: 07-25-2022 End: 06-25-2023 Potassium [Moles/volume] in Serum or Plasma Potassium Lab Routine Hypokalemia Expected: 07/25/2022 (Approximate), Expires: 06/25/2023 [facility] Work Phone: Comment on above: Expected: 07/25/2022 (Approximate), Expi res: 06/25/2023 Start: 07-06-2022 End: 06-30-2023 Basic metabolic 1998 panel - Serum or Plasma Basic metabolic panel Lab Add-On Hypokalemia Expected: 07/06/2022 (Approximate), Expires: 06/30/2023 [facility] Comment on above: Expected: 07/06/2022 (Approximate), Expi res: 06/30/2023 Start: 06-29-2022 End: 06-29-2022 Patient encounter procedure 06/29/2022 Office Visit Bariatrics Jarrod Collazo MD [address] [place] [address] [address] [place] [address] [facility] [place] Start: 06-24-2022 End: 06-25-2023 CBC panel - Blood by Automated count CBC Lab Routine Iron deficiency anemia, unspecified iron deficiency anemia type Expected: 06/24/2022 (Approximate), Expires: 06/25/2023 [facility] Comment on above: Expected: 06/24/2022 (Approximate), Expi res: 06/25/2023 Start: 06-24-2022 End: 06-25-2023 Ferritin [Mass/volume] in Serum or Plasma Ferritin Lab Routine Iron deficiency anemia, unspecified iron deficiency anemia type Expected: 06/24/2022 (Approximate), Expires: 06/25/2023 [facility] Comment on above: Expected: 06/24/2022 (Approximate), Expi res: 06/25/2023 Start: 06-24-2022 End: 06-25-2023 Iron and Iron binding capacity panel - Serum or Plasma Iron Lab Routine Iron deficiency anemia, unspecified iron deficiency anemia type Expected: 06/24/2022 (Approximate), Expires: 06/25/2023 [facility] Comment on above: Expected: 06/24/2022 (Approximate), Expi res: 06/25/2023 Start: 06-15-2022 End: 06-02-2023 CBC panel - Blood by Automated count CBC Lab Routine Hypothyroidism, unspecified type Morbid obesity with BMI of 40.0-44.9, adult (HCC) Deficiency of multiple nutrient elements Expected: 06/15/2022 (Approximate), Expires: 06/02/2023 [facility] Comment on above: Expected: 06/15/2022 (Approximate), Expi res: 06/02/2023 Start: 06-15-2022 End: 06-02-2023 Cobalamin (Vitamin B12) [Mass/volume] in Serum or Plasma Vitamin B12 Lab Routine Hypothyroidism, unspecified type Morbid obesity with BMI of 40.0-44.9, adult (HCC) Deficiency of multiple nutrient elements Expected: 06/15/2022 (Approximate), Expires: 06/02/2023 [facility] [employer] Comment on above: Expected: 06/15/2022 (Approximate), Expi res: 06/02/2023 Start: 06-15-2022 End: 06-02-2023 Comprehensive metabolic 1998 panel - Serum or Plasma Comprehensive metabolic panel Lab Routine Hypothyroidism, unspecified type Morbid obesity with BMI of 40.0-44.9, adult (HCC) Deficiency of multiple nutrient elements Expected: 06/15/2022 (Approximate), Expires: 06/02/2023 [facility] Comment on above: Expected: 06/15/2022 (Approximate), Expi res: 06/02/2023 Start: 06-15-2022 End: 06-02-2023 Ferritin [Mass/volume] in Serum or Plasma Ferritin Lab Routine Hypothyroidism, unspecified type Morbid obesity with BMI of 40.0-44.9, adult (HCC) Deficiency of multiple nutrient elements Expected: 06/15/2022 (Approximate), Expires: 06/02/2023 [facility] Comment on above: Expected: 06/15/2022 (Approximate), Expi res: 06/02/2023 Start: 06-15-2022 End: 06-02-2023 Folate [Mass/volume] in Serum or Plasma Folate Lab Routine Hypothyroidism, unspecified type Morbid obesity with BMI of 40.0-44.9, adult (HCC) Deficiency of multiple nutrient elements Expected: 06/15/2022 (Approximate), Expires: 06/02/2023 [facility] Comment on above: Expected: 06/15/2022 (Approximate), Expi res: 06/02/2023 Start: 06-15-2022 End: 06-02-2023 Iron and Iron binding capacity panel - Serum or Plasma Iron Lab Routine Hypothyroidism, unspecified type Morbid obesity with BMI of 40.0-44.9, adult (HCC) Deficiency of multiple nutrient elements Expected: 06/15/2022 (Approximate), Expires: 06/02/2023 [facility] Comment on above: Expected: 06/15/2022 (Approximate), Expi res: 06/02/2023 Start: 06-15-2022 End: 06-02-2023 Magnesium [Mass/volume] in Serum or Plasma Magnesium Lab Routine Hypothyroidism, unspecified type Morbid obesity with BMI of 40.0-44.9, adult (HCC) Deficiency of multiple nutrient elements Expected: 06/15/2022 (Approximate), Expires: 06/02/2023 [facility] [employer] Comment on above: Expected: 06/15/2022 (Approximate), Expi res: 06/02/2023 Start: 06-15-2022 End: 06-02-2023 Zinc Zinc Lab Routine Hypothyroidism, unspecified type Morbid obesity with BMI of 40.0-44.9, adult (HCC) Deficiency of multiple nutrient elements Expected: 06/15/2022 (Approximate), Expires: 06/02/2023 [facility] Work Phone: Comment on above: Expected: 06/15/2022 (Approximate), Expi res: 06/02/2023 Start: 06-01-2022 End: 06-01-2022 Patient encounter procedure 06/01/2022 Office Visit Bariatrics Jarrod Collazo MD [address] [place] [id number] [facility] [place] Start: 05-24-2022 End: 05-24-2022 Admission to same day surgery center 05/24/2022 Surgery Procedural Jarrod Collazo MD [address] [place], [place] [id number] LAPAROSCOPIC SLEEVE GASTRECTOMY WITH LIVER WEDGE BIOPSY , HIATAL HERNIA REPAIR , POSSOIBLE OPEN [17743 (CPT )] [facility] Comment on above: LAPAROSCOPIC SLEEVE GASTRECTOMY WITH CORI ER WEDGE BIOPSY , HIATAL HERNIA REPAIR , POSSOIBLE OPEN [08090 (CPT )] Start: 05-24-2022 End: 05-24-2022 Laps gstrc rstrictiv px longitudinal gastrectomy LAPAROSCOPY GASTRIC RESTRICTIVE PROCEDURE SLEEVE GASTRECTOMY Morbid (severe) obesity due to excess calories (HCC) 05/24/2022 10:00 AM EDT [facility] Operating Room Start: 05-24-2022 End: 05-24-2022 Laps rpr paraesphgl hrna incl fundplsty w/o mesh LAPAROSCOPY REPAIR PARAESOPHAGEAL HERNIA INCLUDING FUNDOPLASTY Morbid (severe) obesity due to excess calories (HCC) 05/24/2022 10:00 AM EDT [facility] Operating Room Start: 05-24-2022 Subsequent hospital visit by physician 05/24/2022 Hospital Encounter Procedural Jarrod Collazo MD [address] [place], [place] [id number] [facility] Start: 05-24-2022 End: 05-24-2022 Unlis laparoscopic procedure liver UNLISTED LAPAROSCOPIC PROCEDURE LIVER Morbid (severe) obesity due to excess calories (HCC) 05/24/2022 10:00 AM EDT [facility] Operating Room Start: 05-17-2022 End: 05-17-2022 Admission to establishment 05/17/2022 Pre-Admission Testing Pre-Admission Testing [facility] Pre-Admit Testing Start: 05-17-2022 End: 05-17-2022 Admission to establishment 05/17/2022 Pre-Admission Testing Pre-Admission Testing [facility] Pre-Admit Testing Start: 04-14-2022 Screening for malignant neoplasm of breast Mammogram [facility] Start: 03-28-2022 End: 03-28-2022 Patient encounter procedure 03/28/2022 Office Visit Cardiology Kristen Marcus MD [address] [place] [address] [address] [place] [address] [facility] Start: 03-23-2022 End: 03-23-2022 Patient encounter procedure [facility] Start: 03-18-2022 End: 03-18-2022 Admission to same day surgery center 03/18/2022 Surgery Gastroenterology Jarrod Collazo MD [address] [place] [address] EGD WITH BIOPSY [30175 (CPT )] [facility] Comment on above: EGD WITH BIOPSY [02943 (CPT )] Start: 03-18-2022 Subsequent hospital visit by physician 03/18/2022 Hospital Encounter Gastroenterology Jarrod Collazo MD [address] [place] [address] Dyspepsia [facility] Comment on above: Dyspepsia Start: 03-18-2022 End: 03-18-2022 Egd transoral biopsy single/multiple [facility] Start: 12-22-2021 End: 12-22-2021 Patient encounter procedure 12/22/2021 Office Visit Weight Management Cayla Villavicencio MD [address] [place] [address] [facility] Start: 10-21-2021 Influenza vaccination [facility] Start: 03-31-2021 COVID-19 Vaccine (4 - Booster for Moderna series) COVID-19 Vaccine (4 - Booster for Moderna series) [facility] Start: 03-31-2021 COVID-19 Vaccine (4 - Moderna series) COVID-19 Vaccine (4 - Moderna series) [facility] Start: 05-25-2020 Screening for malignant neoplasm of colon [facility] Start: 06-14-2019 Screening for malignant neoplasm of cervix [facility] Start: 07-15-2016 Screening for malignant neoplasm of breast Mammogram Screening [facility] Start: 2015 Lipid panel Lipids [facility] Start: 2015 Screening for malignant neoplasm of breast Mammogram [facility] Start: 04-12-2014 Pneumococcal Vaccine: Pediatrics (0 to 5 Years) and At-Risk Patients (6 to 64 Years) (2 of 2 - PCV) Pneumococcal Vaccine: Pediatrics (0 to 5 Years) and At-Risk Patients (6 to 64 Years) (2 of 2 - PCV) [facility] Start: 05-25-2005 Screening for malignant neoplasm of cervix [facility] Start: 05-25-1996 Screening for malignant neoplasm of cervix Pap smear [facility] Start: 05-25-1994 Hepatitis A Vaccines (1 of 2 - Risk 2-dose series) Hepatitis A Vaccines (1 of 2 - Risk 2-dose series) [facility] Start: 05-25-1994 Hepatitis B Vaccine (1 of 3 - 19+ 3-dose series) Hepatitis B Vaccine (1 of 3 - 19+ 3-dose series) [facility] Start: 05-25-1994 Hepatitis B Vaccines (1 of 3 - 19+ 3-dose series) Hepatitis B Vaccines (1 of 3 - 19+ 3-dose series) [facility] Start: 05-25-1993 Annual PCP Team Chronic Disease Visit Annual PCP Team Chronic Disease Visit [facility] Start: 05-25-1993 Anxiety Screening Anxiety Screening [facility] Start: 05-25-1993 Depression Screening Depression Screening [facility] Start: 05-25-1993 Diabetes mellitus screening Diabetes Screening [facility] Start: 05-25-1993 Hepatitis C screening [facility] Start: 05-25-1993 HIV screening HIV Screening [facility] Start: 05-25-1990 HIV screening HIV screen [facility] Start: 1987 Depression Screen Depression Screen [facility] Start: 1987 Depression Screening Depression Screening [facility] Start: 05-25-1985 Hemoglobin A1c measurement A1C test (Diabetic or Prediabetic) [facility] Start: 05-25-1976 Hepatitis A Vaccines (1 of 2 - Risk 2-dose series) Hepatitis A Vaccines (1 of 2 - Risk 2-dose series) [facility] Start: 05-25-1976 MMR Vaccines (1 of 1 - Standard series) MMR Vaccines (1 of 1 - Standard series) [facility] Start: 1975 COVID-19 Vaccine (#1) COVID-19 Vaccine (#1) [facility] Start: 1975 Hepatitis B Vaccines (1 of 3 - 3-dose series) Hepatitis B Vaccines (1 of 3 - 3-dose series) [facility] Start: 1975 HIV screening HIV Screening [facility] Start: 1975 Lipid panel Lipid Panel [facility] Start: 1975 Screening for malignant neoplasm of colon [facility] Start: 1975 Thyroid stimulating hormone measurement TSH Level [facility] 25-hydroxyvitamin D3 [Mass/volume] in Serum or Plasma Vitamin D Deficiency Screening (Vit D 25) Lab Routine Deficiency of multiple nutrient elements Hypothyroidism, unspecified type Class 1 obesity due to excess calories with body mass index (BMI) of 34.0 to 34.9 in adult, unspecified whether serious comorbidity present 06/14/2023 4:43 PM EDT [employer] OUTSIDE PROCEDURE SCAN OUTSIDE P ROCEDURE SCAN Procedures Ordered: 05/04/2022 [facility] Comment on above: Ordered: 05/04/2022 OUTSIDE PROCEDURE SCAN OUTSIDE P ROCEDURE SCAN Procedures Ordered: 06/22/2022 [facility] Comment on above: Ordered: 06/22/2022 Patient referral [facility] Work Phone: End: 06-14-2024 Screening colonoscopy COLONOSCOPY SCREENING Endoscopy Routine Encounter for screening for malignant neoplasm of colon 1 Occurrences starting 06/15/2023 until 06/14/2024 [place] [facility] Work Phone: Comment on above: 1 Occurrences starting 06/15/2023 until 06/14/2024 T4 free measurement [facility] Thyroid stimulating hormone measurement [facility] Tissue exam [employer] Work Phone: Comment on above: Release Upon Ordering for 1 Occurrences starting 05/24/2022, 1 completed Tissue exam [facility] Work Phone: Comment on above: Release Upon Ordering for 1 Occurrences starting 03/18/2022 Vitamin B1, whole blood Vitamin B1, whole blood Lab Routine Deficiency of multiple nutrient elements Class 2 severe obesity due to excess calories with serious comorbidity and body mass index (BMI) of 36.0 to 36.9 in adult 12/20/2022 4:09 PM EDT [facility] [employer] Vitamin B1, whole blood Vitamin B1, whole blood Lab Routine Deficiency of multiple nutrient elements Hypothyroidism, unspecified type Class 1 obesity due to excess calories with body mass index (BMI) of 34.0 to 34.9 in adult, unspecified whether serious comorbidity present 06/14/2023 4:43 PM EDT [facility] Zinc Zinc Lab Routine Deficiency of multiple nutrient elements Class 2 severe obesity due to excess calories with serious comorbidity and body mass index (BMI) of 36.0 to 36.9 in adult 12/20/2022 4:09 PM EDT [facility] Zinc Zinc Lab Routine Deficiency of multiple nutrient elements Hypothyroidism, unspecified type Class 1 obesity due to excess calories with body mass index (BMI) of 34.0 to 34.9 in adult, unspecified whether serious comorbidity present 06/14/2023 4:43 PM EDT [facility] Immunizations Immunization Date Immunization Notes Care Provider Fa cility 06-26-2020 Covid (Moderna) Dr. Chris faustin Work Phone: [facility] 06-05-2020 Covid (Moderna) Dr. Chris faustin Work Phone: [facility] 04-12-2013 pneumococcal polysaccharide vaccine, 23 valent Robert Johnson MD Work Phone: [facility] 04-12-2013 tetanus toxoid, redu gay diphtheria toxoid, and acellular pertussis vaccine, adsorbed Robert Johnson MD Work Phone: [facility] Payers Date Payer Category Payer Self-pay [id number] 2023 Unknown [id number] 2016 Private Health Insurance [id number] 2016 Private Health Insurance 1975 Unknown [id number] .. [id number] 1975 Unknown [id number]. [id number] Unknown [id number] Unknown [id number] 2.16.8 [id number] Unknown [id number] 2.16.8 [id number] Unknown [id number] 2.16.8 [id number] Unknown [id number] 2.16.8 [id number] Unknown [id number] 2.16.8 [id number] Unknown [id number] 2.16.8 [id number] Unknown [id number] 2.16.8 [id number] Unknown [id number] 2.16.8 [id number] Unknown [id number] 2.16.8 [id number] Social History Date Type Detail Facility Start: 05-06-2021 End: 02-05-2023 Tobacco smoking status MDIS Unknown if ever smoked [facility] Start: 1975 Sex Assigned At Female [facility] Start: 10-06-2021 End: 06-19-2024 Tobacco smoking status MDIS Never smoked tobacco [employer] Work Phone: Start: 10-06-2021 Tobacco use and exposure Smokeless tobacco non-user [facility] Work Phone: Start: 10-06-2021 End: 05-04-2022 Alcohol intake Current drinker of alcohol (finding) [facility] Work Phone: Start: 10-06-2021 History SDOH Alcohol Comment 1-2 / week wine [facility] Work Phone: Start: 1975 Sex Assigned At Not on file [facility] Work Phone: Start: 04-15-2022 End: 05-04-2022 Alcohol intake [facility] [employer] Start: 03-28-2022 Alcohol Comment Per month [facility] Start: 03-08-2022 End: 08-29-2022 Exposure to SARS-CoV-2 (event) Not sure [facility] Start: 06-29-2022 End: 06-15-2023 Tobacco use panel [facility] Start: 07-21-2020 Gender identity Identifies as female gender (finding) [facility] Start: 07-21-2020 Sexual orientation Heterosexual (fin johnny) [facility] Start: 06-15-2023 Alcohol intake 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 alcohol (finding) [facility] National Score (1-100), lower number is lower risk 75 [facility] Start: 05-16-2024 Sex Female (finding) [facility] NEGATED: Highlighted row [facility] Medical Equipment Procedure Code Equipment Code Equipment Origin al Text Equipment Identifier Dates Total cholecystectomy with exploration of common bile duct Open-surgery ligation clip welfare eligibility interviewer [id number] FDA Start: 02-07-2023 Thyroidectomy DRESSING,FIBRILL AR 1X2 1960 FDA Start: 08-17-2020 Thyroidectomy SEALANT,FLOSEAL HEMOSTATIC 5ML FDA Start: 08-17-2020 Thyroidectomy SUTURE,LIGA CLIP MED [id number] FDA Start: 08-17-2020 Thyroidectomy SUTURE,LIGA CLIP SM LT-100 FDA Start: 08-17-2020 Thyroidectomy DRESSING,FIBRILL AR 1X2 1960 FDA Start: 08-17-2020 Thyroidectomy SEALANT,FLOSEAL HEMOSTATIC 5ML FDA Start: 08-17-2020 Thyroidectomy SUTURE,LIGA CLIP MED LT200 FDA Start: 08-17-2020 Thyroidectomy SUTURE,LIGA CLIP SM LT-100 FDA Start: 08-17-2020 Thyroidectomy DRESSING,FIBRILL AR 1X2 1960 FDA Start: 08-17-2020 Thyroidectomy SEALANT,FLOSEAL HEMOSTATIC 5ML FDA Start: 08-17-2020 Thyroidectomy SUTURE,LIGA CLIP MED LT200 FDA Start: 08-17-2020 Thyroidectomy SUTURE,LIGA CLIP SM LT-100 FDA Start: 08-17-2020 Thyroidectomy DRESSING,FIBRILL AR 1X2 1960 FDA Start: 08-17-2020 Thyroidectomy SEALANT,FLOSEAL HEMOSTATIC 5ML FDA Start: 08-17-2020 Thyroidectomy SUTURE,LIGA CLIP MED LT200 FDA Start: 08-17-2020 Thyroidectomy SUTURE,LIGA CLIP SM LT-100 FDA Start: 08-17-2020 Thyroidectomy DRESSING,FIBRILL AR 1X2 1960 FDA Start: 08-17-2020 Thyroidectomy SEALANT,FLOSEAL HEMOSTATIC 5ML FDA Start: 08-17-2020 Thyroidectomy SUTURE,LIGA CLIP MED LT200 FDA Start: 08-17-2020 Thyroidectomy SUTURE,LIGA CLIP SM LT-100 FDA Start: 08-17-2020 Thyroidectomy DRESSING,FIBRILL AR 1X2 1960 FDA Start: 08-17-2020 Thyroidectomy SEALANT,FLOSEAL HEMOSTATIC 5ML FDA Start: 08-17-2020 Thyroidectomy SUTURE,LIGA CLIP MED LT200 FDA Start: 08-17-2020 Thyroidectomy SUTURE,LIGA CLIP SM LT-100 FDA Start: 08-17-2020 Thyroidectomy DRESSING,FIBRILL AR 1X2 1960 FDA Start: 08-17-2020 Thyroidectomy SEALANT,FLOSEAL HEMOSTATIC 5ML FDA Start: 08-17-2020 Thyroidectomy SUTURE,LIGA CLIP MED LT200 FDA Start: 08-17-2020 Thyroidectomy SUTURE,LIGA CLIP SM LT-100 FDA Start: 08-17-2020 Thyroidectomy DRESSING,FIBRILL AR 1X2 1960 FDA Start: 08-17-2020 Thyroidectomy SEALANT,FLOSEAL HEMOSTATIC 5ML FDA Start: 08-17-2020 Thyroidectomy SUTURE,LIGA CLIP MED LT200 FDA Start: 08-17-2020 Thyroidectomy SUTURE,LIGA CLIP SM LT-100 FDA Start: 08-17-2020 Thyroidectomy DRESSING,FIBRILL AR 1X2 1960 FDA Start: 08-17-2020 Thyroidectomy SEALANT,FLOSEAL HEMOSTATIC 5ML FDA Start: 08-17-2020 Thyroidectomy SUTURE,LIGA CLIP MED LT200 FDA Start: 08-17-2020 Thyroidectomy SUTURE,LIGA CLIP SM LT-100 FDA Start: 08-17-2020 Thyroidectomy DRESSING,FIBRILL AR 1X2 1960 FDA Start: 08-17-2020 Thyroidectomy SEALANT,FLOSEAL HEMOSTATIC 5ML FDA Start: 08-17-2020 Thyroidectomy SUTURE,LIGA CLIP MED LT200 FDA Start: 08-17-2020 Thyroidectomy SUTURE,LIGA CLIP SM LT-100 FDA Start: 08-17-2020 Thyroidectomy DRESSING,FIBRILL AR 1X2 1960 FDA Start: 08-17-2020 Thyroidectomy SEALANT,FLOSEAL HEMOSTATIC 5ML FDA Start: 08-17-2020 Thyroidectomy SUTURE,LIGA CLIP MED LT200 FDA Start: 08-17-2020 Thyroidectomy SUTURE,LIGA CLIP SM LT-100 FDA Start: 08-17-2020 Thyroidectomy DRESSING,FIBRILL AR 1X2 1960 FDA Start: 08-17-2020 Thyroidectomy SEALANT,FLOSEAL HEMOSTATIC 5ML FDA Start: 08-17-2020 Thyroidectomy SUTURE,LIGA CLIP MED LT200 FDA Start: 08-17-2020 Thyroidectomy SUTURE,LIGA CLIP SM LT-100 FDA Start: 08-17-2020 Thyroidectomy DRESSING,FIBRILL AR 1X2 1960 FDA Start: 08-17-2020 Thyroidectomy SEALANT,FLOSEAL HEMOSTATIC 5ML FDA Start: 08-17-2020 Thyroidectomy SUTURE,LIGA CLIP MED LT200 FDA Start: 08-17-2020 Thyroidectomy SUTURE,LIGA CLIP SM LT-100 FDA Start: 08-17-2020 Thyroidectomy DRESSING,FIBRILL AR 1X2 1960 FDA Start: 08-17-2020 Thyroidectomy SEALANT,FLOSEAL HEMOSTATIC 5ML FDA Start: 08-17-2020 Thyroidectomy SUTURE,LIGA CLIP MED LT200 FDA Start: 08-17-2020 Thyroidectomy SUTURE,LIGA CLIP SM LT-100 FDA Start: 08-17-2020 Thyroidectomy DRESSING,FIBRILL AR 1X2 1960 FDA Start: 08-17-2020 Thyroidectomy SEALANT,FLOSEAL HEMOSTATIC 5ML FDA Start: 08-17-2020 Thyroidectomy SUTURE,LIGA CLIP MED LT200 FDA Start: 08-17-2020 Thyroidectomy SUTURE,LIGA CLIP SM LT-100 FDA Start: 08-17-2020 Thyroidectomy DRESSING,FIBRILL AR 1X2 1960 FDA Start: 08-17-2020 Thyroidectomy SEALANT,FLOSEAL HEMOSTATIC 5ML FDA Start: 08-17-2020 Thyroidectomy SUTURE,LIGA CLIP MED LT200 FDA Start: 08-17-2020 Thyroidectomy SUTURE,LIGA CLIP SM LT-100 FDA Start: 08-17-2020 Thyroidectomy DRESSING,FIBRILL AR 1X2 1960 FDA Start: 08-17-2020 Thyroidectomy SEALANT,FLOSEAL HEMOSTATIC 5ML FDA Start: 08-17-2020 Thyroidectomy SUTURE,LIGA CLIP MED LT200 FDA Start: 08-17-2020 Thyroidectomy SUTURE,LIGA CLIP SM LT-100 FDA Start: 08-17-2020 Thyroidectomy DRESSING,FIBRILL AR 1X2 1960 FDA Start: 08-17-2020 Thyroidectomy SEALANT,FLOSEAL HEMOSTATIC 5ML FDA Start: 06-28-2021 Thyroidectomy SUTURE,LIGA CLIP MED LT200 FDA Start: 08-17-2020 Thyroidectomy SUTURE,LIGA CLIP SM LT-100 FDA Start: 08-17-2020 Thyroidectomy DRESSING,FIBRILL AR 1X2 1961 FDA Start: 08-17-2020 Thyroidectomy SEALANT,FLOSEAL HEMOSTATIC 5ML FDA Start: 08-17-2020 Thyroidectomy SUTURE,LIGA CLIP MED LT200 FDA Start: 08-17-2020 Thyroidectomy SUTURE,LIGA CLIP SM LT-100 FDA Start: 08-17-2020 ERCP (endoscopic retrograde cholangiopancreatograph y) ([id number]) Polymeric biliary stent, non-bioabsorbable ([id number] FDA Start: 02-06-2023 ERCP (endoscopic retrograde cholangiopancreatograph y) STENT,RX PLASTIC BILIARY 10X7 FDA Start: 02-08-2023 ERCP (endoscopic retrograde cholangiopancreatograph y) STENT,RX PLASTIC BILIARY 10X7 FDA Start: 02-08-2023 ERCP (endoscopic retrograde cholangiopancreatograph y) STENT,RX PLASTIC BILIARY 10X7 FDA Start: 02-08-2023 ERCP (endoscopic retrograde cholangiopancreatograph y) STENT,RX PLASTIC BILIARY 10X7 FDA Start: 02-08-2023 ERCP (endoscopic retrograde cholangiopancreatograph y) STENT,RX PLASTIC BILIARY 10X7 FDA Start: 02-08-2023 Goals Date Patient Goal Desired Activity /State Functional Status Date Assessment Result Facility 02-09-2023 Functional status Ambulates;Bathroom Priv ilege [facility] Work Phone: Mental Status Date Assessment Result Facility 05-10-2023 Cognitive function Voice/Name [facility] Work Phone: 02-09-2023 Cognitive function Level Of Cons ciousness Awake;Alert;Appropriate;Follow s Commands [facility] Work Phone: 02-08-2023 Cognitive function Voice/Name [facility] Work Phone: Clinical Notes 05-06-2021 to 10-09-2024 Note Date & Type Note Facility 10-09-2024 Radiology Diagnostic study note [facility] [address] [place] [address] Brain/Head W/WO Contrast MR#: [id number] Acct: [id number] Name: LAQUITA CHOUDHURY Rep #: [id number] : 1975 F 49 From: Kobi Soto MD PCP: Dr. Chris Rosa MD Status: RE G CLI Study:Brain/Head W/WO Contrast Date of Exam: 10/09/24 Exam# [id number] Ordering Dr: Avery Aguayo MD PROCEDURE: CT BRAIN/HEAD W/WO CONTRAST 10/09/2024 REASON FOR EXAM: NEW ONSET VERTIGO AM WITH HYPOTHYROIDISM TECHNIQUE: CT BRAIN/HEAD W/WO CONTRAST Coronal and Sagittal reconstruction series were provided. CONTRAST: Isovue 370 VOLUME: 44 mL One or more dose reduction techniques were used (e.g., Automated exposure control, adjustment of the mA and/or kV according to patient size, use of iterative reconstruction technique). RADIATION DOSE SUMMARY: DLP: 1547.23 mGycm COMPARISON: None. FINDINGS: The ventricular and sulcal size and configuration are within normal limits. No acute intracranial hemorrhage, extra-axial collection, or evidence of acute infarct. No evidence for intracranial mass lesion or pathologic enhancement. Major vascular structures appear grossly patent on this nondedicated exam. Unremarkable orbits. Intact skull base and calvarium. Well-aerated paranasal sinuses and mastoid air cells. CT/Brain/Head W/WO Contrast IMPRESSION: Unremarkable head CT. Reading Location: [id number] CC: Dr. Rell Aguayo MD; Dr. Chris Rosa MD ~ [place]: Signed [facility] 06-26-2024 Radiology Diagnostic study note [facility] [address] [place] [address] Pelvic w/ Transvaginal MR#: [id number] Acct: [id number] Name: LAQUITA CHOUDHURY Rep #: [id number] : 1975 F 49 From: Sue Salomon MD PCP: Dr. Chris E Schinner, MD Status: RE G CLI Study:Pelvic w/ Transvaginal Date of Exam: 06/25/24 Exam# [id number] Ordering Dr: Kenzie Fabian MD PROCEDURE: PELVIC W/ TRANSVAGINAL, 06/25/2024 REASON FOR EXAM: ENLARGED UTERUS TECHNIQUE: Grayscale and color doppler transabdominal and transvaginal pelvic ultrasound was performed. COMPARISON: None FINDINGS: Uterus: 12.6 x 7.5 x 7.5 cm, Anteverted. Multiple (3 visualized) presumed fibroids, largest posteriorly measuring 3.3 x 3.5 x 3.6 cm appears mostly intramural although it is difficult to exclude a small submucosal component. Borderline minimally heterogeneous background echotexture. Endometrium: 15 mm, echogenic secretory appearance. Cervix: Nabothian cysts. Right ovary: 4.4 x 3.8 x 3.3 cm. Simple appearing unilocular likely dominant follicle/physiologic cyst measures 2.2 x 2.9 x 2.2 cm, O-RADS 1, no follow-up.. Left ovary: Only visualized by limited transabdominal approach. 6.1 x 3.4 x 3.0cm. Simple appearing unilocular cyst measures 2.5 x 3.7 x 2.1 cm, O-RADS 2, no follow-up in a premenopausal patient. Free fluid: None visualized. Other: Estimated bladder volume 970 mL.. US/Pelvic w/ Transvaginal IMPRESSION: 1. Small presumed uterine fibroids up to 3.6 cm. 2. Borderline minimally heterogeneous background uterine echotexture could suggest adenomyosis. 3. Additional description as above. Reading Location: [id number] CC: Dr. Chris Rosa MD; Dr. Kenzie Bonilla MD ~ [place]: Signed [facility] 06-19-2024 Evaluation note Diagnosis Onset Date Resolution Enlarged uterus acute May 1:32pm Encounter for routine gynecological examination noneactive June 19, 2024 1:32pm [facility] Work Phone: 1(529) 518-588501-10-2025 Evaluation note* Diagnosis Onset Date Resolution Status Admit Date Papillary thyroid carcinoma chronic Catarina 10th, 2025 2:57pm Postoperative primary hypothyroidism chronic March 01 2:57pm [facility] Work Phone: 1(985) 743-594606-03-2024 Nurse Note* Nery Hand RN - 07/24/2023 11:08 AM EDT Arrived in phase II via cart. Left lateral position. Sedated, but responds to verbal stimuli. Colornormal; skin warm and dry. Respirations wnl and unlabored. Abdomen soft and with + bowel sounds in quads X 4. Patient resting comfortably. Family at bedside. Dr. Johnson at bedside to review procedure and recommendations. Nery Hand RN [facility]06-03-2024 Nurse Note* Nery Hand RN - 07/24/2023 11:08 AM EDT Arrived in phase II via cart. Left lateral position. Sedated, but responds to verbal stimuli. Colornormal; skin warm and dry. Respirations wnl and unlabored. Abdomen soft and with + bowel sounds in quads X 4. Patient resting comfortably. Family at bedside. Dr. Johnson at bedside to review procedure and recommendations. Nery Hand RN [facility] Note* Discharge Instr - Nursing Nery Mishra RN - 07/24/2023 10:34 AM EDT The patient received a copy of Colonoscopy discharge instructions that contain information for how to contact the physician who performed the procedure and when to seek medical care. Nery Hand RN [facility]06-03-2024 Miscellaneous Notes* Discharge Instr - Nursing Nery Mishra RN - 07/24/2023 10:34 AM EDT The patient received a copy of Colonoscopy discharge instructions that contain information for how to contact the physician who performed the procedure and when to seek medical care. Nery Hand RN documented in [facility] History and physical note * Robert Johnson MD - 07/24/2023 10:00 AM EDT HISTORY AND PHYSICAL Laquita Choudhury 1975 REFERRING PHYSICIAN: Chris Rosa MD CHIEF COMPLAINT: Consult (colonoscopy) HPI: The patient is a 48 year old female referred for endoscopy. Laquita notes no history of colon complaints. The patient notes no history of upper GI complaints. Laquita has not undergone prior endoscopy. The patient is being seen by me today at the request of Dr. Chris Rosa MD, MD for my opinion and advice regarding Encounter for screening for malignant neoplasm of colon (primary encounter diagnosis) . PAST MEDICAL HISTORY 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 Polycystic ovaries Unspecified asthma(493.90) PAST SURGICAL HISTORY PAST SURGICAL HISTORY Procedure Laterality Date ANKLE ARTHROSCOPY/SURGERY Right ankle APPENDECTOMY 11/20/2004 CYSTECTOMY COMPLETE-SEP PRO ovarian cyst during first DILATION & CURETTAGE DX&/THER NONOBSTETRIC x4 TOTAL OVARIAN CYSTECTOMY 1996 REMOVAL GALLBLADDER 02/08/2023 Dr Orozco SLEEVE GASTRECTOMY; OPEN 05/24/2022 Dr Collazo THYROID FINE NEEDLE ASPIRATION Right 08/04/2020 THYROIDECTOMY TOTAL/COMPLETE 08/17/2020 TONSILLECTOMY PRIMARY/SECONDARY Tonsillectomy CURRENT MEDICATIONS Current Outpatient Medications Medication Sig acetaminophen (TYLENOL) 500 mg tablet Take 500 mg by mouth three times a day as needed. ferrous sulfate 325 mg (65 mg iron) tablet Take 325 mg by mouth. Cholecalciferol, Vitamin D3, 50 mcg (2,000 unit) cap Take by mouth. cyanocobalamin, vitamin B-12, (VITAMIN B-12 ORAL) Take by mouth. Cetirizine (ZYRTEC) 10 mg cap Take by mouth. Ascorbic Acid 500 mg chew Take 500 mg by mouth once daily. levothyroxine 100 mcg cap Take 100 mcg by mouth daily before breakfast. albuterol HFA (PROAIR HFA) 90 mcg/actuation inhaler Inhale 2 Puffs as instructed every 4 hours as needed. multivitamin ORAL tablet Take 1 tablet by mouth once daily. DULoxetine (CYMBALTA) 60 mg capsule (Patient not taking: Reported on 06/15/2023) meloxicam (MOBIC) 15 mg tablet Take 15 mg by mouth once daily. No current facility-administered medications for this visit. ALLERGIES: Seasonal Allergies [Other] PERSONAL HISTORY: SOCIAL HISTORY Social History Tobacco Use Smoking status: Never Smokeless tobacco: Never Vaping Use Vaping Use: Never used Substance Use Topics Alcohol use: No Drug use: No FAMILY HISTORY: FAMILY HISTORY FAMILY HISTORY Problem Relation Age of Onset Diabetes Mother Cancer Maternal Grandmother lung Diabetes Maternal Grandmother Diabetes Paternal Grandfather other (Crohn's Disease) Sister REVIEW OF SYMPTOMS: The review of systems data was entered by the nurse and reviewed by pa Nursing Notes: Mamta Hendrix RN 06/15/2023 3:39 PM Signed REVIEW OF SYSTEMS: General: The patient denies fatigue, denies weight loss, denies weight gain, denies feeling hot, and denies feelings of cold. Eyes: The patient denies glaucoma, denies eye injury/surgery, does not wear glasses or contacts. Ear/Nose/Throat: The patient denies allergies, denies hayfever, denies ear infections, and denies bloody noses. Cardiovascular: The patient denies chest pain, denies heart disease, denies high blood pressure,denies cardiac stent, denies prior heart attack, denies irregular heart beat, denies high cholesterol, denies poor circulation, denies heart failure, other cardiac issues, denies claudication, denies cold feet, denies peripheral arterial stent. Respiratory: The patient denies tuberculosis, denies pneumonia, denies frequent cough, denies pulmonary embolism, NOTES shortness of breath, and denies coughing up blood. Gastrointestinal: The patient denies difficulty swallowing, denies acid reflux, denies ulcers, denies vomiting, denies jaundice/hepatitis, NOTES gallbladder problems, denies black or tarry stools, denies hemorrhoids, denies bleeding from rectum, denies diverticulitis, denies constipation, denies diarrhea, denies loss of stool control, and denies hernias. Kidney/Bladder: The patient denies kidney stones, denies urine infections, and denies bloody urine. Skin: The patient denies a history of skin cancer, denies bleeding/changing moles, and denies a history of skin rash. Neurologic: The patient denies a history of epilepsy/convulsions, denies headaches, denies head/spinal injuries, and denies stroke/TIA. Psychiatric: The patient denies psychiatric medications, denies depression, and denies voices, denies substance abuse. Endocrine: The patient NOTES thyroid disorders, denies diabetes, and denies hormonal problems. Hematologic: The patient denies a history of bruising, denies bleeding, and denies anemia, denies blood clots. Infections: The patient denies a history of measles and mumps, denies rheumatic fever, and denies sexually transmitted diseases. Musculoskeletal: The patient denies back pain/injury, denies back problems, denies sciatica, deniesknee/foot trouble, denies arthritis, or denies gout. When was patient's last Mammogram screening? 2022 Last Colonoscopy: none Mamta Hendrix RN PHYSICAL EXAMINATION: General: The patient is 48 year old female, well nourished, well hydrated in no acute distress. Thepatient is oriented to time, place, and person. VITALS: Blood pressure 124/78, pulse 90, temperature 36.6 C (97.9 F), height 157.5 cm (5' 2), weight 81.6 kg (180 lb), last menstrual period 02/24/2016, SpO2 96%. Body mass index is 32.92 kg/m . HEENT: Normal cephalic, ataumatic, pupils are equally round, sclera are anicteric, mucous membranesare moist, oropharynx is clear. Neck has no masses, asymmetry or lymphadenopathy. Thyroid is unremarkable. Respiratory: Clear to auscultation and percussion. Normal respiratory excursion and pattern. Cardiac: Examination is regular rate and rhythm. Abdominal exam: Soft, nontender, with no palpable masses. No hepatosplenomegaly. No palpable hernias. Rectal exam: exam deferred Extremities: no clubbing, cyanosis or edema. No adenopathy. Other: LABORATORY VALUES: As Noted RADIOLOGIC STUDIES: As Noted Assessment IMPRESSION: Encounter for screening for malignant neoplasm of colon (primary encounter diagnosis) PLAN: I plan to perform lower endoscopy. We discussed the risks and benefits of the planned endoscopy. I have informed the patient that complications can occur including failure to complete the endoscopy and perforation. The patient had the opportunity to ask questions concerning the planned endoscopy. My staff has also explained the procedure to the patient in understandable terms and has given the patient printed material concerning the procedure. The patient freely consents to surgery. I plan to use Miralax bowel preperation for endoscopy Diagnoses: (Z12.11) Encounter for screening for malignant neoplasm of colon (primary encounter diagnosis) A letter was sent to Dr. Chris Rosa MD, MD indicating the above finding for this patient. Return to Clinic: The patient is instructed to follow-up with me 1 week post operatively. Robert Johnson III, MD UPDATED HISTORY AND PHYSICAL EXAMINATION SERVICE DATE: 07/24/2023 SERVICE TIME: 9:46 AM PHYSICAL EXAM MUST BE COMPLETED ON ADMISSION The History and Physical (completed in the past 30 days) has been reviewed and the patient has beenexamined. The contents accurately reflect the patient's condition with the following additions or revisions since the H&P was completed. Examination indicates no changes. This H&P can be found in the attached. SIGNATURE: Robert Johnson III, MD PATIENT NAME: Laquita Choudhury DATE: July 24, 2023 TIME: 9:46 AM [facility]06-03-2024 History and physical note* Robert Johnson MD - 07/24/2023 10:00 AM EDT HISTORY AND PHYSICAL Laquita Choudhury 1975 REFERRING PHYSICIAN: Chris Rosa MD CHIEF COMPLAINT: Consult (colonoscopy) HPI: The patient is a 48 year old female referred for endoscopy. Laquita notes no history of colon complaints. The patient notes no history of upper GI complaints. Laquita has not undergone prior endoscopy. The patient is being seen by me today at the request of Dr. Chris Rosa MD, MD for my opinion and advice regarding Encounter for screening for malignant neoplasm of colon (primary encounter diagnosis) . PAST MEDICAL HISTORY 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 Polycystic ovaries Unspecified asthma(493.90) PAST SURGICAL HISTORY PAST SURGICAL HISTORY Procedure Laterality Date ANKLE ARTHROSCOPY/SURGERY Right ankle APPENDECTOMY 11/20/2004 CYSTECTOMY COMPLETE-SEP PRO ovarian cyst during first DILATION & CURETTAGE DX&/THER NONOBSTETRIC x4 TOTAL OVARIAN CYSTECTOMY 1997 REMOVAL GALLBLADDER 02/08/2023 Dr Orozco SLEEVE GASTRECTOMY; OPEN 05/24/2022 Dr Collazo THYROID FINE NEEDLE ASPIRATION Right 08/04/2020 THYROIDECTOMY TOTAL/COMPLETE 08/17/2020 TONSILLECTOMY PRIMARY/SECONDARY <AGE 12 Tonsillectomy CURRENT MEDICATIONS Current Outpatient Medications Medication Sig acetaminophen (TYLENOL) 500 mg tablet Take 500 mg by mouth three times a day as needed. ferrous sulfate 325 mg (65 mg iron) tablet Take 325 mg by mouth. Cholecalciferol, Vitamin D3, 50 mcg (2,000 unit) cap Take by mouth. cyanocobalamin, vitamin B-12, (VITAMIN B-12 ORAL) Take by mouth. Cetirizine (ZYRTEC) 10 mg cap Take by mouth. Ascorbic Acid 500 mg chew Take 500 mg by mouth once daily. levothyroxine 100 mcg cap Take 100 mcg by mouth daily before breakfast. albuterol HFA (PROAIR HFA) 90 mcg/actuation inhaler Inhale 2 Puffs as instructed every 4 hours as needed. multivitamin ORAL tablet Take 1 tablet by mouth once daily. DULoxetine (CYMBALTA) 60 mg capsule (Patient not taking: Reported on 06/15/2023) meloxicam (MOBIC) 15 mg tablet Take 15 mg by mouth once daily. No current facility-administered medications for this visit. ALLERGIES: Seasonal Allergies [Other] PERSONAL HISTORY: SOCIAL HISTORY Social History Tobacco Use Smoking status: Never Smokeless tobacco: Never Vaping Use Vaping Use: Never used Substance Use Topics Alcohol use: No Drug use: No FAMILY HISTORY: FAMILY HISTORY FAMILY HISTORY Problem Relation Age of Onset Diabetes Mother Cancer Maternal Grandmother lung Diabetes Maternal Grandmother Diabetes Paternal Grandfather other (Crohn's Disease) Sister REVIEW OF SYMPTOMS: The review of systems data was entered by the nurse and reviewed by pa Nursing Notes: Mamta Hendrix RN 06/15/2023 3:39 PM Signed REVIEW OF SYSTEMS: General: The patient denies fatigue, denies weight loss, denies weight gain, denies feeling hot, and denies feelings of cold. Eyes: The patient denies glaucoma, denies eye injury/surgery, does not wear glasses or contacts. Ear/Nose/Throat: The patient denies allergies, denies hayfever, denies ear infections, and denies bloody noses. Cardiovascular: The patient denies chest pain, denies heart disease, denies high blood pressure,denies cardiac stent, denies prior heart attack, denies irregular heart beat, denies high cholesterol, denies poor circulation, denies heart failure, other cardiac issues, denies claudication, denies cold feet, denies peripheral arterial stent. Respiratory: The patient denies tuberculosis, denies pneumonia, denies frequent cough, denies pulmonary embolism, NOTES shortness of breath, and denies coughing up blood. Gastrointestinal: The patient denies difficulty swallowing, denies acid reflux, denies ulcers, denies vomiting, denies jaundice/hepatitis, NOTES gallbladder problems, denies black or tarry stools, denies hemorrhoids, denies bleeding from rectum, denies diverticulitis, denies constipation, denies diarrhea, denies loss of stool control, and denies hernias. Kidney/Bladder: The patient denies kidney stones, denies urine infections, and denies bloody urine. Skin: The patient denies a history of skin cancer, denies bleeding/changing moles, and denies a history of skin rash. Neurologic: The patient denies a history of epilepsy/convulsions, denies headaches, denies head/spinal injuries, and denies stroke/TIA. Psychiatric: The patient denies psychiatric medications, denies depression, and denies voices, denies substance abuse. Endocrine: The patient NOTES thyroid disorders, denies diabetes, and denies hormonal problems. Hematologic: The patient denies a history of bruising, denies bleeding, and denies anemia, denies blood clots. Infections: The patient denies a history of measles and mumps, denies rheumatic fever, and denies sexually transmitted diseases. Musculoskeletal: The patient denies back pain/injury, denies back problems, denies sciatica, deniesknee/foot trouble, denies arthritis, or denies gout. When was patient's last Mammogram screening? 2022 Last Colonoscopy: none Mamta Hendrix RN PHYSICAL EXAMINATION: General: The patient is 48 year old female, well nourished, well hydrated in no acute distress. Thepatient is oriented to time, place, and person. VITALS: Blood pressure 124/78, pulse 90, temperature 36.6 C (97.9 F), height 157.5 cm (5' 2), weight 81.6 kg (180 lb), last menstrual period 02/24/2016, SpO2 96%. Body mass index is 32.92 kg/m . HEENT: Normal cephalic, ataumatic, pupils are equally round, sclera are anicteric, mucous membranesare moist, oropharynx is clear. Neck has no masses, asymmetry or lymphadenopathy. Thyroid is unremarkable. Respiratory: Clear to auscultation and percussion. Normal respiratory excursion and pattern. Cardiac: Examination is regular rate and rhythm. Abdominal exam: Soft, nontender, with no palpable masses. No hepatosplenomegaly. No palpable hernias. Rectal exam: exam deferred Extremities: no clubbing, cyanosis or edema. No adenopathy. Other: LABORATORY VALUES: As Noted RADIOLOGIC STUDIES: As Noted Assessment IMPRESSION: Encounter for screening for malignant neoplasm of colon (primary encounter diagnosis) PLAN: I plan to perform lower endoscopy. We discussed the risks and benefits of the planned endoscopy. I have informed the patient that complications can occur including failure to complete the endoscopy and perforation. The patient had the opportunity to ask questions concerning the planned endoscopy. My staff has also explained the procedure to the patient in understandable terms and has given the patient printed material concerning the procedure. The patient freely consents to surgery. I plan to use Miralax bowel preperation for endoscopy Diagnoses: (Z12.11) Encounter for screening for malignant neoplasm of colon (primary encounter diagnosis) A letter was sent to Dr. Chris Rosa MD, MD indicating the above finding for this patient. Return to Clinic: The patient is instructed to follow-up with me 1 week post operatively. Robert Johnson III, MD UPDATED HISTORY AND PHYSICAL EXAMINATION SERVICE DATE: 07/24/2023 SERVICE TIME: 9:46 AM PHYSICAL EXAM MUST BE COMPLETED ON ADMISSION The History and Physical (completed in the past 30 days) has been reviewed and the patient has beenexamined. The contents accurately reflect the patient's condition with the following additions or revisions since the H&P was completed. Examination indicates no changes. This H&P can be found in the attached. SIGNATURE: Robert Johnson III, MD PATIENT NAME: Laquita Choudhury DATE: July 24, 2023 TIME: 9:46 AM [facility] Telephone encounter Note * Telephone Encounter - LISSET Reveles CNP - 06/21/2023 1:08 PM EDT Noted, thanks. [facility] [employer] Phone: 1(188) 719-360705-01-2024 Miscellaneous Notes* Telephone Encounter - LISSET Reveles CNP - 06/21/2023 1:08 PM EDT Noted, thanks. * Telephone Encounter - Tori Newton RN - 06/21/2023 11:37 AM EDT Records received and to CELLAR WORKER for review. * Telephone Encounter - Tori Newton RN - 06/21/2023 11:04 AM EDT Records request faxed and confirmation obtained. * Telephone Encounter - Tori Newton RN - 06/21/2023 10:21 AM EDT ----- Message from LISSET Reveles CNP sent at 06/21/2023 10:07 AM EDT ----- Please obtain a copy of lap rose and ercp done at [facility] last year. documented in this [facility]05-01-2024 [facility] PROGRESS NOTE POST WEIGHT LOSS SURGERY FOLLOW UP Patient: Laquita Choudhury Service Date: 06/21/2023 Patient is 12 month(s) s/p Sleeve Gastrectomy Today's Metrics: Post-Surgical Weight Loss Date: 06/21/23 Height: 5' 1 (154.9 cm) Weight: 178 lb 6.4 oz (80.9 kg) BMI: 33.70 Weight Change: -6 lbs Total Weight Change: -62.6 lbs % EBWL: 46% Comments: 12M Pre-op Weight Metrics: Post-op Weight Metrics: %EBWL: % EBWL: 46% Weight Change Since Last Visit: Weight Change: -6 lbs Weight Change from Highest Pre-op Weight: Total Weight Change: -62.6 lbs Patient has the following questions: None Reported Pain: Patient rates pain on scale 0-10 as: 0 Exercise Compliance: Exercising: yes If yes: Type: walking, zoomba Times per week: 2-3 Min per session: 30+ Falls Risk Assessment Patient does not take medications which affect BP or mental status Patient does not have newly prescribed or changed dosage of medications within past 30 days which affect BP or mental status Patient has not fallen in the past 2 months Patient does not demonstrate unsteady gait Patient uses the following ambulatory assistive devices: none Patient states the presence of the following traits which increases risk of fall: Patient is not on home O2 Labs Completed: yes - If NO, patient instructed to get labs drawn today or GINA If YES: [facility] If yes see Labs Tab Labs completed at [facility] facility? N/A If yes see Encounters Tab - Orders only - Historical Provider - Date: 06/14/2023 Completed by: Rhona Shankar, [facility]05-01-2024 Telephone encounter Note* Telephone Encounter - Tori Newton RN - 06/21/2023 11:37 AM EDT Records received and to CELLAR WORKER for review. [id number] Telephone encounter Note* Telephone Encounter - Tori Newton RN - 06/21/2023 11:04 AM EDT Records request faxed and confirmation obtained. [id number] Telephone encounter Note* Telephone Encounter - Tori Newton RN - 06/21/2023 10:21 AM EDT ----- Message from Ekaterina Wharton APRN - HANDLE ASSEMBLER sent at 06/21/2023 10:07 AM EDT ----- Please obtain a copy of lap rose and ercp done at [facility] last year. [facility] [id number] History of Present illness Narrative* Jarrod Collazo MD - 06/21/2023 9:40 AM EDT Images from the original note were not included. JARROD COLLAZO MD , FACS, [facility] MINIMALLY INVASIVE & METABOLIC / BARIATRIC SURGERY [facility] MBS - 12 MONTH FOLLOW UP 06/21/2023 PATIENT: Laquita Choudhury DATE OF : 1975 HISTORY OF PRESENT ILLNESS Chief Complaint: 12 month follow-up status post SLEEVE GASTRECTOMY - aka SG Laquita Choudhury is a 48 y.o. female who presents to the bariatric care center today for their 12 month evaluation following bariatric surgery with Dr. Collazo. The total weight lost is 62 pounds for a 46 % EWL. Overall, the patient is satisfied with the weight loss and health benefits related to the bariatric intervention. Dietary compliance concerns: No Exercise and activity concerns: No Compliance and phychologic concerns: No Dysphagia and eating concerns: No Excessive skin concerns: No The patient is feeling well and denies any major complaints or GI symptoms. The dietary regimen andexercise activities are going well. The patient is compliant with protein intake and vitamin/trace element supplementation. Labs were Completed Laboratory results were GLUCOSE 111, HDL 71 , LDL 108. Review of Symptoms Constitutional: negative for chills, fevers, night sweats, and weight loss Eyes: negative Ears, nose, mouth, throat, and face: negative Respiratory: negative for cough, dyspnea on exertion, hemoptysis, and sputum Cardiovascular: negative for chest pain, chest pressure/discomfort, dyspnea, irregular heart beat, palpitations, and syncope Integument/breasts: negative for dry skin and rash Gastrointestinal: negative for abdominal pain, constipation, diarrhea, dysphagia, melena, reflux symptoms, and vomiting Genitourinary:negative for dysuria, hematuria, and urinary incontinence Musculoskeletal:negative for back pain and myalgias Neurological: negative for dizziness, paresthesia, seizures, and weakness Behavioral/Psych: negative for anxiety, irritability, and sleep disturbance Hematologic/lymphatic: negative for bleeding, easy bruising, lymphadenopathy, and petechiae Endocrine: negative for temperature intolerance Allergic/Immunologic: negative for anaphylaxis and hay fever PAST HISTORIES Past Medical History: Diagnosis Date Asthma Cancer ([facility]) ([facility]) June 2020 COVID-19 vaccine series completed 02/03/2021 Hx of thyroid cancer Joint pain, hip Joint pain, knee Morbid obesity due to excess calories ([facility]) 09/28/2021 Muscle weakness Postoperative hypothyroidism Pre-diabetes Seasonal allergies SOB (shortness of breath) on exertion Past Surgical History: Procedure Laterality Date ANKLE FRACTURE SURGERY 1993 [place] APPENDECTOMY 2002 [place] DILATION AND CURETTAGE OF UTERUS [id number] ERCP 05/09/2022 stent removal LAP,CHOLECYSTECTOMY (HISTORICAL) N/A 02/08/2023 DR.Bortz Pineda OVARIAN CYST REMOVAL Jamar SLEEVE GASTRECTOMY, LAPAROSCOPIC (HISTORICAL) 05/24/2022 Lap sleeve gastrectomy with liver wedge biopsy THYROIDECTOMY Bilateral 2020 Dr. Elizabeth Pineda TONSILLECTOMY (HISTORICAL) 1980 [place] Family History Problem Relation Name Age of Onset Obesity Mother Darian Diabetes Mother Darian Diabetes type II Mother Darian Cancer Maternal Grandmother Laquita No Known Allergies PHYSICAL EXAM BP 121/81 Pulse 79 Temp 36.6 C (97.8 F) Resp 16 Ht 5' 1 (1.549 m) Comment: bcc Wt 178 lb6.4 oz (80.9 kg) Comment: bcc BMI 33.71 kg/m General: This patient is awake, alert, and oriented, with normal affect and is in no apparent distress. Cardiac: Regular rate and rhythm without evidence of murmur. Respiratory: Clear to auscultation bilaterally with normal effort. Abdomen: Obese, soft, non-tender, non-distended without masses/ No evidence of abdominal hernia / Incisions consistent with previous surgeries. Head and Neck: Obese, normocephalic and atraumatic/soft and supple, no lymphadenopathy or obvious bruits. No thyroidmegaly. Extremities: No cyanosis, clubbing or edema/ No calf tenderness/No restrictions of movement, is ambulatory without assistance. Neurological: Intact x 4 extremities, normal sensation, no focal deficits notes. Skin: Skin cool, warm and dry. No rashes or lesions noted. Rectal: Deferred LABORATORY STUDIES AND IMAGING Laboratory Studies: No results for input(s): NA, K, CL, CO2, BUN, CREATININE, GLUCOSE, CALCIUM in the last 72 hours. No results for input(s): WBC, RBC, HGB, HCT, MCV, MCH, MCHC, RDW, PLT, MPV in the last 72 hours. No results for input(s): ALKPHOS, ALT, AST, PROT, BILITOT, BILIDIR, LIPASE in the last 72 hours. No lab exists for component: LABALBU ASSESSMENT 12 months status post SLEEVE GASTRECTOMY - aka SG Visit Diagnoses: 1. Hypothyroidism, unspecified type 2. Deficiency of multiple nutrient elements 3. Pre-diabetes 4. Class 1 obesity due to excess calories with serious comorbidity and body mass index (BMI) of 33.0 to 33.9 in adult PLAN Compliance with exercise and dietary regimen (see dietitian recommendations) Follow up with PCP for regular health maintenance vistis Follow up with obesity medicine team for annual bariatric follow up / bloodwork Orders Placed This Encounter Procedures Zinc Folate Iron Ferritin Magnesium Vitamin D Deficiency Screening (Vit D 25) Vitamin B12 Vitamin B1, whole blood Lipid panel Comprehensive metabolic panel CBC ATTESTATION I personally interviewed and examined the patient. I have reviewed their past medical, surgical, medication, allergy, social and family histories. I have performed an independent physical examinationand have reviewed all pertinent laboratory and imaging results. I have reviewed with the patient myassessment of their condition as well as the treatment recommendations and the associated risks, benefits and options. I have spent a total of 30 minutes for this office visit in [id number] discussion, counseling of this patient, reviewing medical records and documenting the encounter. OD COLLAZO MD, [facility], [facility] Cinetechnician - Weight Management [place] / [facility] End Finder Twisting Department - Advanced GI MIS, Foregut and Bariatric Surgery Fellowship ---[facility]--- Patient Care Team: Chris Rosa MD as PCP - General Mary Chau RN as Registered Nurse Jarrod Collazo MD as Surgeon (General Surgery) * Rhona Shankar MA - 06/21/2023 9:40 AM EDT BARIATRIC CARE CENTER PROGRESS NOTE POST WEIGHT LOSS SURGERY FOLLOW UP Patient: Laquita Choudhury Service Date: 06/21/2023 Patient is 12 month(s) s/p Sleeve Gastrectomy Today's Metrics: Post-Surgical Weight Loss Date: 06/21/23 Height: 5' 1 (154.9 cm) Weight: 178 lb 6.4 oz (80.9 kg) BMI: 33.70 Weight Change: -6 lbs Total Weight Change: -62.6 lbs % EBWL: 46% Comments: 12M Pre-op Weight Metrics: Post-op Weight Metrics: %EBWL: % EBWL: 46% Weight Change Since Last Visit: Weight Change: -6 lbs Weight Change from Highest Pre-op Weight: Total Weight Change: -62.6 lbs Patient has the following questions: None Reported Pain: Patient rates pain on scale 0-10 as: 0 Exercise Compliance: Exercising: yes If yes: Type: walking, zoomba Times per week: 2-3 Min per session: 30+ Falls Risk Assessment Patient does not take medications which affect BP or mental status Patient does not have newly prescribed or changed dosage of medications within past 30 days which affect BP or mental status Patient has not fallen in the past 2 months Patient does not demonstrate unsteady gait Patient uses the following ambulatory assistive devices: none Patient states the presence of the following traits which increases risk of fall: Patient is not on home O2 Labs Completed: yes - If NO, patient instructed to get labs drawn today or GINA If YES: Labs completed at [facility]? yes If yes see Labs Tab Labs completed at Non-[facility] facility? N/A If yes see Encounters Tab - Orders only - Historical Provider - Date: 06/14/2023 Completed by: Rhona Shankar MA * Ailyn Pollard RD - 06/21/2023 9:40 AM EDT [facility] BARIATRIC CARE [place] > 6 MONTH POST-OPERATIVE DIETITIAN VISIT Date: 06/21/23 Patient's weight decreased by: 62.6 lbs Patient consumes 5-6 small meals daily -Yes Patient s portions are adequate for current diet: -1 cup Protein requirements discussed- currently consuming 65+ grams protein daily. Current protein sources: taking in great protein items Recommendations: Fluid requirements discussed. Current Fluid Intake: 50 oz Patient drinks sugar-free, caffeine-free and carbonation-free fluids only. Patient waits 30 minutes before and after meals to drink Exercise activities discussed. Patient is currently exercise. She was reminded that regular exercise is critical part of a successful outcome following weight loss surgery. Behavioral/Emotional changes reviewed. Patient does feel comfortable with changes in eating behaviors and associated emotional changes. She was reminded that psychological counseling is available through the Bariatric Care Center post-operatively. Recent Nutrient Concerns and Vitamin Supplementation Changes: taking all vitamins and labs wnl Notes/Comments: Pt is doing great overall! Pt to call as needed with any issues or concerns that arise. Visit completed by: Ailyn Pollard RD documented in this [facility]04-26-2024 Telephone encounter Note* Telephone Encounter - Mari Camarena - 06/16/2023 9:54 AM EDT 07/24/2023 [facility]ON [facility]04-26-2024 Miscellaneous Notes* Telephone Encounter - Mari Camarena - 06/16/2023 9:54 AM EDT 07/24/2023 COLON ASC [facility] Instructions* Patient Instructions* Robert Johnson MD - 06/15/2023 3:45 PM EDT Images from the original note were not included. Bowel Preparation Instructions for: Miralax-Gatorade Preparations IF YOU DO NOT FOLLOW THESE DIRECTIONS, YOUR COLONOSCOPY WILL BE CANCELLED. [place] Instructions: Your bowel must be empty so that your doctor can clearly view your colon. Follow all of the instructions in this handout EXACTLY as they are written. Do NOT eat any solid food the ENTIRE day before your colonoscopy. Buy your bowel preparation at least 5 days before your colonoscopy. Four (4) Dulcolax laxative tablets containing 5mg of bisacodyl each (NOT Dulcolax stool softener) One (1) 8.3oz. bottle Miralax (238 grams) or generic equivalent 2 x 32oz. Bottles of Gatorade (NOT RED) Diabetic Patients: Use G2 (Gatorade 2) TRANSPORTATION on the Day of Your Exam A responsible adult MUST be present with you at Check In prior to your colonoscopy and REMAIN in the endoscopy area until you are discharged. You are NOT ALLOWED to drive, take a taxi or bus, or leave the Endoscopy Center ALONE. If you do not have a responsible driver operator (family member or friend) withyou to take you home, your exam cannot be done with sedation and will be cancelled. Please bring a list of all of your current medications, including any Owwd-lor-Ddosnxv medications with you. Medications If you take insulin, diabetic medications or blood thinners such as Coumadin (warfarin), Plavix (clopidogrel), Ticlid (ticlopidine hydrochloride), Agrylin (anagrelide), Xarelto (Rivaroxaban), Pradaxa(Dabigatran), Eliquis (Apixaban), and Effient (Prasugrel). You MUST call the doctors who orders those medicines for instructions on altering the dosage before your colonoscopy. All other medications should be taken the day of the exam with a sip of water including ASPIRIN. Five (5) Days Before Your Colonoscopy Do NOT take medicines that stop diarrhea - such as Imodium, Kaopectate, or Pepto Bismol. Do NOT take fiber supplements - such as Metamucil, Citrucel, or Perdiem. Do NOT take products that contain iron - such as multi-vitamins (the label lists what is in the products). Three (3) Days Before Your Colonoscopy Do NOT eat high-fiber foods - such as popcorn, beans, seeds (flax, sunflower, quinoa), multigrain bread, nuts, salad/vegetables, or fresh and dried fruit. 1 Bowel Preparation Instructions for: Miralax-Gatorade Preparations One (1) Day Before Your Colonoscopy Only drink clear liquids the ENTIRE DAY before your colonoscopy. Do NOT eat any solid foods. Drink at least 8 ounces of clear liquids every hour after waking up. The clear liquids you can drink include: Clear Liquid (NO RED LIQUIDS) DO NOT DRINK Gatorade, Pedialyte or Powerade Clear broth or bouillon Coffee or tea (no milk or non-dairy creamer) Carbonated and non-carbonated soft drinks Lars-Aid or other fruit flavored drinks Strained fruit juices (no pulp) Jell-O, popsicles, hard candy Water Alcohol Milk or non-dairy creamers Noodles or vegetables in soup Juice with pulp Liquid you cannot see through Do not use tobacco/vaping products Mix 1/2 of Miralax bottle (119 grams) in each 32 ounces of Gatorade bottle until dissolved. Keep cool in the refrigerator. DO NOT ADD ICE. The bowel preparation solution will be consumed in two parts. Part 1 5:00 PM - Evening before your colonoscopy Take 4 Dulcolax tablets. 6 PM - Evening before your colonoscopy Drink 32 oz. of the mixed solution. Drink an 8 oz. glass of bowel preparation every 15 minutes for a total of 4 glasses. Fifteen (15) minutes later, drink an 8 oz. glass of of clear liquids every 15 minutes for a total of 2 glasses. You may continue to drink clear liquids till midnight. Part 2 On the day of your colonoscopy you may drink clear liquids up to (three) 3 hours prior to procedure. 4 1/2 hours before your colonoscopy Take another 32 oz. bottle of mixed solution. Drink an 8 oz. glass of bowel prep every 15 minutes for a total of 4 glasses. Fifteen (15) minutes later, drink an 8 oz. glass of clear liquids every 15 minutes for a total of 2glasses. You may continue to drink clear liquids up to (three) 3 hours before your exam. 2 01/2019 [facility] NoteHNO ID: [id number] Author: ROBERT JOHNSON MD Service: ? Author Type: Physician Type: Progress Notes Filed: 06/23/2023 06:39 Note Text: HISTORY AND PHYSICAL Laquita Choudhury 1975 REFERRING PHYSICIAN: Chris Rosa MD CHIEF COMPLAINT: Consult (colonoscopy) HPI: The patient is a 48 year old female referred for endoscopy. Laquita notes no history of colon complaints. The patient notes no history of upper GI complaints. Laquita has not undergone prior endoscopy. The patient is being seen by me today at the request of Dr. Chris Rosa MD, MD for my opinion and advice regarding Encounter for screening for malignant neoplasm of colon (primary encounter diagnosis) . 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 Polycystic ovaries Unspecified asthma(493.90) PAST SURGICAL HISTORY Procedure Laterality Date ANKLE ARTHROSCOPY/SURGERY Right ankle APPENDECTOMY 11/20/2004 CYSTECTOMY COMPLETE-SEP PRO ovarian cyst during first DILATION AND CURETTAGE DXAND/THER NONOBSTETRIC x4 TOTAL OVARIAN CYSTECTOMY 1996 REMOVAL GALLBLADDER 02/08/2023 Dr Orozco SLEEVE GASTRECTOMY; OPEN 05/24/2022 Dr Collazo THYROID FINE NEEDLE ASPIRATION Right 08/04/2020 THYROIDECTOMY TOTAL/COMPLETE 08/17/2020 TONSILLECTOMY PRIMARY/SECONDARY Tonsillectomy Current Outpatient Medications Medication Sig acetaminophen (TYLENOL) 500 mg tablet Take 500 mg by mouth three times a day as needed. ferrous sulfate 325 mg (65 mg iron) tablet Take 325 mg by mouth. Cholecalciferol, Vitamin D3, 50 mcg (2,000 unit) cap Take by mouth. cyanocobalamin, vitamin B-12, (VITAMIN B-12 ORAL) Take by mouth. Cetirizine (ZYRTEC) 10 mg cap Take by mouth. Ascorbic Acid 500 mg chew Take 500 mg by mouth once daily. levothyroxine 100 mcg cap Take 100 mcg by mouth daily before breakfast. albuterol HFA (PROAIR HFA) 90 mcg/actuation inhaler Inhale 2 Puffs as instructed every 4 hours as needed. multivitamin ORAL tablet Take 1 tablet by mouth once daily. DULoxetine (CYMBALTA) 60 mg capsule (Patient not taking: Reported on 06/15/2023) meloxicam (MOBIC) 15 mg tablet Take 15 mg by mouth once daily. No current facility-administered medications for this visit. ALLERGIES: Seasonal Allergies [Other] PERSONAL HISTORY: Social History Tobacco Use Smoking status: Never Smokeless tobacco: Never Vaping Use Vaping Use: Never used Substance Use Topics Alcohol use: No Drug use: No FAMILY HISTORY: FAMILY HISTORY Problem Relation Age of Onset Diabetes Mother Cancer Maternal Grandmother lung Diabetes Maternal Grandmother Diabetes Paternal Grandfather other (Crohn's Disease) Sister REVIEW OF SYMPTOMS: The review of systems data was entered by the nurse and reviewed by pa Nursing Notes: Mamta Hendrix RN 06/15/2023 3:39 PM Signed REVIEW OF SYSTEMS: General: The patient denies fatigue, denies weight loss, denies weight gain, denies feeling hot, and denies feelings of cold. Eyes: The patient denies glaucoma, denies eye injury/surgery, does not wear glasses or contacts. Ear/Nose/Throat: The patient denies allergies, denies hayfever, denies ear infections, and denies bloody noses. Cardiovascular: The patient denies chest pain, denies heart disease, denies high blood pressure,denies cardiac stent, denies prior heart attack, denies irregular heart beat, denies high cholesterol, denies poor circulation, denies heart failure, other cardiac issues, denies claudication, denies cold feet, denies peripheral arterial stent. Respiratory: The patient denies tuberculosis, denies pneumonia, denies frequent cough, denies pulmonary embolism, NOTES shortness of breath, and denies coughing up blood. Gastrointestinal: The patient denies difficulty swallowing, denies acid reflux, denies ulcers, denies vomiting, denies jaundice/hepatitis, NOTES gallbladder problems, denies black or tarry stools, denies hemorrhoids, denies bleeding from rectum, denies diverticulitis, denies constipation, denies diarrhea, denies loss of stool control, and denies hernias. Kidney/Bladder: The patient denies kidney stones, denies urine infections, and denies bloody urine. Skin: The patient denies a history of skin cancer, denies bleeding/changing moles, and denies a history of skin rash. Neurologic: The patient denies a history of epilepsy/convulsions, denies headaches, denies head/spinal injuries, and denies stroke/TIA. Psychiatric: The patient denies psychiatric medications, denies depression, and denies voices, denies substance abuse. Endocrine: The patient NOTES thyroid disorders, denies diabetes, and denies hormonal problems. Hematologic: The patient denies a history of bruising, denies bleeding, and denies anemia, denies blood clots. Infections: The patient denies a history of measles and mump (more content not included)...[facility]04-25-2024 History of Present illness Narrative* Robert Johnson MD - 06/15/2023 3:44 PM EDT HISTORY AND PHYSICAL Laquita Choudhury 1975 REFERRING PHYSICIAN: Chris Rosa MD CHIEF COMPLAINT: Consult (colonoscopy) HPI: The patient is a 48 year old female referred for endoscopy. Laquita notes no history of colon complaints. The patient notes no history of upper GI complaints. Laquita has not undergone prior endoscopy. The patient is being seen by me today at the request of Dr. Chris Rosa MD, MD for my opinion and advice regarding Encounter for screening for malignant neoplasm of colon (primary encounter diagnosis) . 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 Polycystic ovaries Unspecified asthma(493.90) PAST SURGICAL HISTORY Procedure Laterality Date ANKLE ARTHROSCOPY/SURGERY Right ankle APPENDECTOMY 11/20/2004 CYSTECTOMY COMPLETE-SEP PRO ovarian cyst during first DILATION & CURETTAGE DX&/THER NONOBSTETRIC x4 TOTAL OVARIAN CYSTECTOMY 1997 REMOVAL GALLBLADDER 02/08/2023 Dr Orozco SLEEVE GASTRECTOMY; OPEN 05/24/2022 Dr Collazo THYROID FINE NEEDLE ASPIRATION Right 08/04/2020 THYROIDECTOMY TOTAL/COMPLETE 08/17/2020 TONSILLECTOMY PRIMARY/SECONDARY <AGE 12 Tonsillectomy Current Outpatient Medications Medication Sig acetaminophen (TYLENOL) 500 mg tablet Take 500 mg by mouth three times a day as needed. ferrous sulfate 325 mg (65 mg iron) tablet Take 325 mg by mouth. Cholecalciferol, Vitamin D3, 50 mcg (2,000 unit) cap Take by mouth. cyanocobalamin, vitamin B-12, (VITAMIN B-12 ORAL) Take by mouth. Cetirizine (ZYRTEC) 10 mg cap Take by mouth. Ascorbic Acid 500 mg chew Take 500 mg by mouth once daily. levothyroxine 100 mcg cap Take 100 mcg by mouth daily before breakfast. albuterol HFA (PROAIR HFA) 90 mcg/actuation inhaler Inhale 2 Puffs as instructed every 4 hours as needed. multivitamin ORAL tablet Take 1 tablet by mouth once daily. DULoxetine (CYMBALTA) 60 mg capsule (Patient not taking: Reported on 06/15/2023) meloxicam (MOBIC) 15 mg tablet Take 15 mg by mouth once daily. No current facility-administered medications for this visit. ALLERGIES: Seasonal Allergies [Other] PERSONAL HISTORY: Social History Tobacco Use Smoking status: Never Smokeless tobacco: Never Vaping Use Vaping Use: Never used Substance Use Topics Alcohol use: No Drug use: No FAMILY HISTORY: FAMILY HISTORY Problem Relation Age of Onset Diabetes Mother Cancer Maternal Grandmother lung Diabetes Maternal Grandmother Diabetes Paternal Grandfather other (Crohn's Disease) Sister REVIEW OF SYMPTOMS: The review of systems data was entered by the nurse and reviewed by pa Nursing Notes: Mamta Hendrix RN 06/15/2023 3:39 PM Signed REVIEW OF SYSTEMS: General: The patient denies fatigue, denies weight loss, denies weight gain, denies feeling hot, and denies feelings of cold. Eyes: The patient denies glaucoma, denies eye injury/surgery, does not wear glasses or contacts. Ear/Nose/Throat: The patient denies allergies, denies hayfever, denies ear infections, and denies bloody noses. Cardiovascular: The patient denies chest pain, denies heart disease, denies high blood pressure,denies cardiac stent, denies prior heart attack, denies irregular heart beat, denies high cholesterol, denies poor circulation, denies heart failure, other cardiac issues, denies claudication, denies cold feet, denies peripheral arterial stent. Respiratory: The patient denies tuberculosis, denies pneumonia, denies frequent cough, denies pulmonary embolism, NOTES shortness of breath, and denies coughing up blood. Gastrointestinal: The patient denies difficulty swallowing, denies acid reflux, denies ulcers, denies vomiting, denies jaundice/hepatitis, NOTES gallbladder problems, denies black or tarry stools, denies hemorrhoids, denies bleeding from rectum, denies diverticulitis, denies constipation, denies diarrhea, denies loss of stool control, and denies hernias. Kidney/Bladder: The patient denies kidney stones, denies urine infections, and denies bloody urine. Skin: The patient denies a history of skin cancer, denies bleeding/changing moles, and denies a history of skin rash. Neurologic: The patient denies a history of epilepsy/convulsions, denies headaches, denies head/spinal injuries, and denies stroke/TIA. Psychiatric: The patient denies psychiatric medications, denies depression, and denies voices, denies substance abuse. Endocrine: The patient NOTES thyroid disorders, denies diabetes, and denies hormonal problems. Hematologic: The patient denies a history of bruising, denies bleeding, and denies anemia, denies blood clots. Infections: The patient denies a history of measles and mumps, denies rheumatic fever, and denies sexually transmitted diseases. Musculoskeletal: The patient denies back pain/injury, denies back problems, denies sciatica, deniesknee/foot trouble, denies arthritis, or denies gout. When was patient's last Mammogram screening? 2022 Last Colonoscopy: none Mamta Hendrix RN PHYSICAL EXAMINATION: General: The patient is 48 year old female, well nourished, well hydrated in no acute distress. Thepatient is oriented to time, place, and person. VITALS: Blood pressure 124/78, pulse 90, temperature 36.6 C (97.9 F), height 157.5 cm (5' 2), weight 81.6 kg (180 lb), last menstrual period 02/24/2016, SpO2 96%. Body mass index is 32.92 kg/m . HEENT: Normal cephalic, ataumatic, pupils are equally round, sclera are anicteric, mucous membranesare moist, oropharynx is clear. Neck has no masses, asymmetry or lymphadenopathy. Thyroid is unremarkable. Respiratory: Clear to auscultation and percussion. Normal respiratory excursion and pattern. Cardiac: Examination is regular rate and rhythm. Abdominal exam: Soft, nontender, with no palpable masses. No hepatosplenomegaly. No palpable hernias. Rectal exam: exam deferred Extremities: no clubbing, cyanosis or edema. No adenopathy. Other: LABORATORY VALUES: As Noted RADIOLOGIC STUDIES: As Noted Assessment IMPRESSION: Encounter for screening for malignant neoplasm of colon (primary encounter diagnosis) PLAN: I plan to perform lower endoscopy. We discussed the risks and benefits of the planned endoscopy. I have informed the patient that complications can occur including failure to complete the endoscopy and perforation. The patient had the opportunity to ask questions concerning the planned endoscopy. My staff has also explained the procedure to the patient in understandable terms and has given the patient printed material concerning the procedure. The patient freely consents to surgery. I plan to use Miralax bowel preperation for endoscopy Diagnoses: (Z12.11) Encounter for screening for malignant neoplasm of colon (primary encounter diagnosis) A letter was sent to Dr. Chris Rosa MD, MD indicating the above finding for this patient. Return to Clinic: The patient is instructed to follow-up with me 1 week post operatively. Robert Johnson III, MD [facility] Note* Mamta Hendrix RN - 06/15/2023 3:38 PM EDT REVIEW OF SYSTEMS: General: The patient denies fatigue, denies weight loss, denies weight gain, denies feeling hot, and denies feelings of cold. Eyes: The patient denies glaucoma, denies eye injury/surgery, does not wear glasses or contacts. Ear/Nose/Throat: The patient denies allergies, denies hayfever, denies ear infections, and denies bloody noses. Cardiovascular: The patient denies chest pain, denies heart disease, denies high blood pressure,denies cardiac stent, denies prior heart attack, denies irregular heart beat, denies high cholesterol, denies poor circulation, denies heart failure, other cardiac issues, denies claudication, denies cold feet, denies peripheral arterial stent. Respiratory: The patient denies tuberculosis, denies pneumonia, denies frequent cough, denies pulmonary embolism, NOTES shortness of breath, and denies coughing up blood. Gastrointestinal: The patient denies difficulty swallowing, denies acid reflux, denies ulcers, denies vomiting, denies jaundice/hepatitis, NOTES gallbladder problems, denies black or tarry stools, denies hemorrhoids, denies bleeding from rectum, denies diverticulitis, denies constipation, denies diarrhea, denies loss of stool control, and denies hernias. Kidney/Bladder: The patient denies kidney stones, denies urine infections, and denies bloody urine. Skin: The patient denies a history of skin cancer, denies bleeding/changing moles, and denies a history of skin rash. Neurologic: The patient denies a history of epilepsy/convulsions, denies headaches, denies head/spinal injuries, and denies stroke/TIA. Psychiatric: The patient denies psychiatric medications, denies depression, and denies voices, denies substance abuse. Endocrine: The patient NOTES thyroid disorders, denies diabetes, and denies hormonal problems. Hematologic: The patient denies a history of bruising, denies bleeding, and denies anemia, denies blood clots. Infections: The patient denies a history of measles and mumps, denies rheumatic fever, and denies sexually transmitted diseases. Musculoskeletal: The patient denies back pain/injury, denies back problems, denies sciatica, deniesknee/foot trouble, denies arthritis, or denies gout. When was patient's last Mammogram screening? 2022 Last Colonoscopy: none Mamta Hendrix RN [facility]04[facility] Nurse Note* Mamta Hendrix RN - 06/15/2023 3:38 PM EDT REVIEW OF SYSTEMS: General: The patient denies fatigue, denies weight loss, denies weight gain, denies feeling hot, and denies feelings of cold. Eyes: The patient denies glaucoma, denies eye injury/surgery, does not wear glasses or contacts. Ear/Nose/Throat: The patient denies allergies, denies hayfever, denies ear infections, and denies bloody noses. Cardiovascular: The patient denies chest pain, denies heart disease, denies high blood pressure,denies cardiac stent, denies prior heart attack, denies irregular heart beat, denies high cholesterol, denies poor circulation, denies heart failure, other cardiac issues, denies claudication, denies cold feet, denies peripheral arterial stent. Respiratory: The patient denies tuberculosis, denies pneumonia, denies frequent cough, denies pulmonary embolism, NOTES shortness of breath, and denies coughing up blood. Gastrointestinal: The patient denies difficulty swallowing, denies acid reflux, denies ulcers, denies vomiting, denies jaundice/hepatitis, NOTES gallbladder problems, denies black or tarry stools, denies hemorrhoids, denies bleeding from rectum, denies diverticulitis, denies constipation, denies diarrhea, denies loss of stool control, and denies hernias. Kidney/Bladder: The patient denies kidney stones, denies urine infections, and denies bloody urine. Skin: The patient denies a history of skin cancer, denies bleeding/changing moles, and denies a history of skin rash. Neurologic: The patient denies a history of epilepsy/convulsions, denies headaches, denies head/spinal injuries, and denies stroke/TIA. Psychiatric: The patient denies psychiatric medications, denies depression, and denies voices, denies substance abuse. Endocrine: The patient NOTES thyroid disorders, denies diabetes, and denies hormonal problems. Hematologic: The patient denies a history of bruising, denies bleeding, and denies anemia, denies blood clots. Infections: The patient denies a history of measles and mumps, denies rheumatic fever, and denies sexually transmitted diseases. Musculoskeletal: The patient denies back pain/injury, denies back problems, denies sciatica, deniesknee/foot trouble, denies arthritis, or denies gout. When was patient's last Mammogram screening? 2022 Last Colonoscopy: none Mamta Hendrix RN documented in this [facility] History and physical note Author Jose Irby [facility] May 10, 2023 11:06am Note Date/Time May 10, 2023 11: 06am [facility] Medical Records Department [address] [place] [id number] History & Physical Exam 05/10/23 1105 MR#: [id number] Acct: [id number] Name: LAQUITA CHOUDHURY Rep #:[id number] : 1975 47 From: Jose Irby DO PCP: Dr. Chris Rosa MD Status:[facility] Location: [place] [address] History and Physical Date of Admission: 05/10/23 Gallstone pancreatitis HPI Narrative: LAQUITA CHOUDHURY, is a 47 F who presents with acute onset abdominal pain. She is status post gastric sleeve approximately 6 months ago. She has no prior historyof hepatobiliary or pancreatic disease came to ED with epigastric abdominal painfor about 1 week. She described her pain in epigastric region, spontaneous onset, intermittent, colicky in nature, episodic each episode lasting for about 15 to 20 minutes but pain never goes away. Frequency and duration of pain increased over last 1 week more so over last 2 days. Patient felt cold but denies any fever. She is still any food or drink makes her pain worse. She denies alcohol or smoking history. In ED, she had CT abdomen pelvis which shows trace pericholecystic fluid, mild enlargement of pancreatic head and uncinate process without discrete mass. Lipase enzyme is very high, 3086 along with total bilirubin, transaminases and alkaline phosphatase. CT abdomen pelvis displayed : Trace pericholecystic fluid. Correlate clinically. Mild enlargement of the pancreatic head and uncinate without discrete mass. [facility] Medical History Alcohol use Asthma Non-smoker Postoperative primary hypothyroidism Thyroid cancer Thyroid disease Wears contact lenses Home Medications multivitamin,[id number] (Complete Multivitamin tablet) 1 tab PO DAILY supplement 05/02/18 [History Last Taken Unknown] cholecalciferol (vitamin D3) 50 mcg (2,000 unit) capsule 50 mcg PO DAILY supplement 05/04/20 [History Last Taken Unknown] albuterol sulfate 90 mcg/actuation breath activated powder inhaler,sensor (Proair Digihaler) 2 inh inhalation Q6H asthma 08/14/20 [History Last Taken Unknown] biotin 5,000 mcg sublingual tablet 5,000 mcg sublingual DAILY vitamin 06/13/22 [History Last Taken 02/04/23] cetirizine 10 mg capsule (All Day Allergy (cetirizine)) 10 mg PO DAILY allergies 06/13/22 [History Last Taken Unknown] mecobalamin (vitamin B12) 500 mcg chewable tablet 500 mcg PO DAILY vitamin 06/13/22 [History Last Taken Unknown] levothyroxine 150 mcg tablet 150 mcg PO .M-F thyroid #90 tabs 08/04/22 [Rx Last Taken Unknown] ascorbic acid (vitamin C) 500 mg tablet (Vitamin C) 500 mg PO DAILY vitamin 02/05/23 [History Last Taken Unknown] calcium citrate 315 mg calcium-vitamin D3 6.25 mcg (250 unit) tablet (Citracal + Vitamin D Maximum) 2 tab PO TID vitamin 02/05/23 [History Last Taken Unknown] ferrous sulfate 325 mg (65 mg iron) tablet (Feosol) 650 mg PO QODAY iron deficiency 02/05/23 [History Last Taken Unknown] zinc 50 mg tablet 50 mg PO DAILY vitamin 02/05/23 [History Last Taken Unknown] Allergy/AdvReac Type Severity Reaction Status Date / Time No Known Allergies Allergy Verified 02/06/23 13:15 Surgical History H/O gastric sleeve H/O total thyroidectomy with radical neck dissection History of ankle surgery History of dilation and curettage History of ovarian cystectomy History of tonsillectomy Hx of appendectomy Social History Smoking Status: Never smoker alcohol intake: never substance use type: does not use caffeine: Yes what type of physical activity do you participate in: walking seatbelt use: always do you feel safe at home: Yes 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 [employer] Constitutional Constitutional: Denies anorexia, chills or fatigue Eyes Eyes: Denies blurry vision ENT HEENT: Denies abnormal hearing Cardiovascular Cardiovascular: Denies chest pain Respiratory/Chest Respiratory/Chest: Denies cough or dyspnea Gastrointestinal Gastrointestinal: Reports abdominal pain; Denies nausea or vomiting Genitourinary Genitourinary: Denies change in urinary stream Musculoskeletal Musculoskeletal: Denies abnormal gait Integumentary Integumentary: Reports jaundice Neurologic Neurologic: Denies abnormal gait Psychiatric Psychiatric: Denies anxiety Endocrine Endocrinology: Denies heat intolerance Physical Exam Const alert and no apparent distress Resp normal respiratory effort, no retractions, no use of accessory muscles and clear to auscultation bilaterally Cardio regular rate, regular rhythm, S1 normal heart sound and S2 normal heart sound GI normal to inspection, nondistended, normoactive bowel sounds, soft to palpation and non-distended GI Narrative: RUQ ab Extremity normal to inspection Neuro Sensorium / Orientation: awake and alert Lab / Micro Data 02/06/23 03:35 02/06/23 03:35 Labs: Laboratory Results - last 24 hr 02/05/23 14:50: Phosphorus 3.3, Magnesium 1.9, Direct Bilirubin 2.31 H 02/06/23 03:35: WBC 6.3, RBC 3.98 L, Hgb 11.8 L, Hct 37.3, MCV 93.7, MCH 29.6, MCHC 31.6 L, RDW Std Deviation 45.4 H, RDW Coeff of Mihir 13.1, Plt Count 185, MPV12.8 H, Immature Gran % (Auto) 0.300, Neut % (Auto) 73.3 H, Lymph % (Auto) 18.7 L, Fergus % (Auto) 6.1, Eos % (Auto) 1.4, Baso % (Auto) 0.2, Absolute Neuts (auto)4.6, Absolute Lymphs (auto) 1.17, Nucleated RBC % 0, PT 13.9, INR 1.1, Sodium 143, Potassium 3.6, Chloride 111 H, Carbon Dioxide 24.0, Anion Gap 8, BUN 13, Creatinine 0.63, Estim Creat Clear Calc 83.30, Est GFR (MDRD) Af Amer 130, Est GFR (MDRD) Non-Af 107, BUN/Creatinine Ratio 20.6 H, Glucose 80, Calcium 8.0 L, Total Bilirubin 2.40 H, AST 75 H, ALT 178 H, Alkaline Phosphatase 339 H, Total Protein 6.2 L, Albumin 2.8 L, Globulin 3.4, Albumin/Globulin Ratio 0.8 L, TSH 9.99 H Imagaing Radiology Impression Abdomen/Pelvis CT 02/05/23 15:17 IMPRESSION: 1. Trace pericholecystic fluid. Correlate clinically. Consider gallbladder ultrasound if clinically warranted. 2. Mild enlargement of the pancreatic head and uncinate without discrete mass. Consider follow-up multiphase CT or MRI of the pancreas. 3. Uterine fibroids. Electronically Signed: Tamika Norris MD at 16:33 EST Reading Location ID and State: [id number] / Tel , Service support , Assessment & Plan Assessment/Plan (1) Acute gallstone pancreatitis: PLAN: Plan This is 47-year-old female being admitted for acute gallstone pancreatitis. Acute gallstone pancreatitis: The patient is admitted MedSurg floor. Patient has normal WBC count, hemoglobin and hematocrit. Neutrophils 78%. Liver chemistry shows elevated transaminases ALT more than AST, alkaline phosphatase 372 and total bilirubin 3.2. Direct bilirubin ordered. Lipase is about 3000. CT abdomen/pelvis as described in HPI. She underwent ERCP tomorrow. She had multiple stones removed from her common bile duct and a temporary stent placed. The next day she underwent cholecystectomy. She is doing very well from a GI standpoint. She comes in today for removal and possible exchange of biliary stent that was placed secondary to mild biliary stricture likely secondary to chronic cholecystitis. She was explained alternatives, risk, benefits includingnot withstanding bleeding, infection, sepsis, perforation, need for emergent surgery and . She will have an ASA of 3. 05/10/23 1106 <Electronically signed by Jose Irby DO> Cosigner Signature (if applicable): CC: Dr. Chris Rosa MD; Jose Irby DO~ Signed [facility] Work Phone: [phone]) 175-928703-20-2024 Procedure [facility] 05-10-2023 Procedure [facility]11-07-2023 NoteAddended by: DONI ALCANTAR on: 06/14/2023 04:31 PM Modules accepted: [facility]11-07-2023 [facility] PROGRESS NOTE POST WEIGHT LOSS SURGERY FOLLOW UP Patient: Laquita Choudhury Service Date: 12/27/2022 Patient is 7 month(s) s/p Sleeve Gastrectomy Today's Metrics: Post-Surgical Weight Loss Date: 12/27/22 Height: 5' 1 (154.9 cm) Weight: 184 lb 6.4 oz (83.6 kg) BMI: 34.84 Weight Change: -8.6 lbs Total Weight Change: -56.6 lbs % EBWL: 42% Comments: 7M Pre-op Weight Metrics: Post-op Weight Metrics: %EBWL: % EBWL: 42% Weight Change Since Last Visit: Weight Change: -8.6 lbs Weight Change from Highest Pre-op Weight: Total Weight Change: -56.6 lbs Patient has the following questions: None Reported Pain: Patient rates pain on scale 0-10 as: 0 Exercise Compliance: Exercising: yes If yes: Type: walking Times per week: 5 Min per session: 3.5 [place] Risk Assessment Patient does not take medications which affect BP or mental status Patient does not have newly prescribed or changed dosage of medications within past 30 days which affect BP or mental status Patient has not fallen in the past 2 months Patient does not demonstrate unsteady gait Patient uses the following ambulatory assistive devices: none Patient states the presence of the following traits which increases risk of fall: none Patient is not on home O2 Labs Completed: yes - If NO, patient instructed to get labs drawn today or GINA If YES: Labs completed at [facility]? yes If yes see Labs Tab Labs completed at Non-[facility] facility? no If yes see Encounters Tab - Orders only - Historical Provider - Date: 12/20/2022 Completed by: Osmel Rodriguez [facility]11-07-2023 History of Present illness Narrative* Osmel Rodriguez MA - 12/27/2022 3:00 PM EST [facility] [place] PROGRESS NOTE POST WEIGHT LOSS SURGERY FOLLOW UP Patient: Laquita Choudhury Service Date: 12/27/2022 Patient is 7 month(s) s/p Sleeve Gastrectomy Today's Metrics: Post-Surgical Weight Loss Date: 12/27/22 Height: 5' 1 (154.9 cm) Weight: 184 lb 6.4 oz (83.6 kg) BMI: 34.84 Weight Change: -8.6 lbs Total Weight Change: -56.6 lbs % EBWL: 42% Comments: 7M Pre-op Weight Metrics: Post-op Weight Metrics: %EBWL: % EBWL: 42% Weight Change Since Last Visit: Weight Change: -8.6 lbs Weight Change from Highest Pre-op Weight: Total Weight Change: -56.6 lbs Patient has the following questions: None Reported Pain: Patient rates pain on scale 0-10 as: 0 Exercise Compliance: Exercising: yes If yes: Type: walking Times per week: 5 Min per session: 3.5 [place] Risk Assessment Patient does not take medications which affect BP or mental status Patient does not have newly prescribed or changed dosage of medications within past 30 days which affect BP or mental status Patient has not fallen in the past 2 months Patient does not demonstrate unsteady gait Patient uses the following ambulatory assistive devices: none Patient states the presence of the following traits which increases risk of fall: none Patient is not on home O2 Labs Completed: yes - If NO, patient instructed to get labs drawn today or GINA If YES: Labs completed at [facility]? yes If yes see Labs Tab [facility]? no If yes see Encounters Tab - Orders only - Historical Provider - Date: 12/20/2022 Completed by: Osmel Rodriguez MA * Vale Aponte RD - 12/27/2022 3:00 PM EST [facility] [place] > 6 MONTH POST-OPERATIVE DIETITIAN VISIT Date: 12/27/22 Patient's weight decreased by: 56.6 lbs Patient does consume 5-6 small meals daily Patient s portions are adequate for current diet: -1 cup Protein requirements discussed- currently consuming 60-80 grams protein daily. Current protein sources: Jamaican yogurt, cottage cheese, chicken, turkey, Protein shake, eggs, beans,nuts Recommendations:none Fluid requirements discussed. Current Fluid Intake: 40-60 oz/day Patient does drink sugar-free, caffeine-free and carbonation-free fluids only. Patient does wait 30 minutes before and after meals to drink Exercise activities discussed. Patient does currently exercise. She was reminded that regular exercise is critical part of a successful outcome following weight loss surgery. (Walking) Behavioral/Emotional changes reviewed. Patient does feel comfortable with changes in eating behaviors and associated emotional changes. She was reminded that psychological counseling is available through the [facility] post-operatively. Recent Nutrient Concerns and Vitamin Supplementation Changes: Pt compliant with vitamin/mineral protocol. Noted low ferritin-labs addressed by [facility]-see TE 12/26/2022. Notes/Comments: Pt doing well. Encourage try Smooth Move tea to aid in constipation and adding to fluid intake. Pt encouraged to call/Mychart with questions. Visit completed by: Vale Aponte RD * Ekaterina Wharton APRN - HANDLE ASSEMBLER - 12/27/2022 3:00 PM EST Images from the original note were not included. JARROD COLLAZO MD , FACS, [facility] BARIATRIC [facility] METABOLIC SURGERY [facility] 6 MONTH POST-OP EVALUATION 12/27/2022 PATIENT: Laquita Choudhury DATE OF : 1975 CHIEF COMPLAINT 6 month follow-up status post Laparoscopic Sleeve Gastrectomy SUBJECTIVE Laquita Choudhury is a 47 y.o. female who presents to the bariatric care center today for their 6 month evaluation following bariatric surgery with Dr. Collazo. The total weight lost is 56 pounds for a 42 % EWL. Overall, the patient is satisfied with the short-term weight loss and health benefits related to the bariatric intervention. Dietary compliance concerns: No Exercise and activity concerns: No Compliance and phychologic concerns: No Dysphagia and eating concerns: No Excessive skin concerns: No The patient is feeling well and denies any major complaints or GI symptoms. The dietary regimen andexercise activities are going well. The patient is compliant with protein intake and vitamin/trace element supplementation. Labs were Completed Laboratory results were within an acceptable range Review of Systems Constitutional: Negative for chills and fever. HENT: Negative for sore throat and trouble swallowing. Respiratory: Negative for chest tightness and shortness of breath. Cardiovascular: Negative for chest pain and leg swelling. Gastrointestinal: Negative for abdominal distention, diarrhea, nausea and vomiting. Genitourinary: Negative for decreased urine volume. Skin: Negative for rash. Neurological: Negative for dizziness, syncope and weakness. Psychiatric/Behavioral: Negative for confusion. The patient is not nervous/anxious. Current Medications: Patient's Medications New Prescriptions No medications on file Previous Medications ACETAMINOPHEN (TYLENOL) 500 MG TABLET Take 500 mg by mouth every 8 hours as needed for mild pain (1-3). ALBUTEROL 108 (90 BASE) MCG/ACT INHALER Inhale 2 puffs every 4 hours as needed. CALCIUM CITRATE-VITAMIN D (CALCIUM CITRATE +D PO) Take 500 mg by mouth 3 times daily. CHOLECALCIFEROL (D3-5) 5,000 UNITS TABLET Take 1 tablet by mouth in the morning. CYANOCOBALAMIN (VITAMIN B-12) 500 MCG TABLET Take 500 mcg by mouth daily. Sublingual FERROUS SULFATE 325 (65 FE) MG TABLET Take 325 mg by mouth 2 times daily. LEVOTHYROXINE (SYNTHROID, LEVOXYL) 150 MCG TABLET Take 150 mcg by mouth every morning (before breakfast). Five days weekly MULTIPLE VITAMINS-IRON (MULTIVITAMIN/IRON PO) Take 1 Dose by mouth daily. ZINC GLUCONATE 50 MG TABLET Take 50 mg by mouth daily. Modified Medications No medications on file Discontinued Medications DULOXETINE (CYMBALTA) [address] CAPSULE Take 60 mg by mouth in the morning. OMEPRAZOLE (PRILOSEC) [address] CAPSULE Take 1 capsule (20 mg) by mouth daily. Do not crush or chew. PHYSICAL EXAM BP 125/82 Pulse 88 Temp 36.8 C (98.2 F) Resp 16 Ht 5' 1 (1.549 m) Wt 184 lb 6.4 oz (83.6kg) BMI 34.84 kg/m General: This patient is awake, alert, and oriented, and is in no apparent distress. Cardiac: Regular rate and rhythm without evidence of murmur. Respiratory: Clear to auscultation bilaterally. Abdomen: Soft, non-tender, non-distended without masses/ No evidence of abdominal hernia / Incisions consistent with previous surgeries. Head and Neck: Normocephalic and atraumatic/soft and supple, no lymphadenopathy or obvious bruits. Extremities: No cyanosis, clubbing or edema/ No calf tenderness/No restrictions of movement, is ambulatory without assistance. Neurological: Intact x 4 extremities, no focal deficits notes. Skin: No rashes or lesions noted. Incisions are clean dry and intact without evidence of infection or erythema. ASSESSMENT 6 month status post bariatric surgery Visit Diagnoses: 1. Deficiency of multiple nutrient elements 2. Hypothyroidism, unspecified type 3. Class 1 obesity due to excess calories with body mass index (BMI) of 34.0 to 34.9 in adult, unspecified whether serious comorbidity present PLAN 1). Compliance with exercise and dietary regimen (see dietitian recommendations) 2). Follow up with PCP for regular health maintenance vistis 3). Follow up with obesity medicine team for annual bariatric follow up / bloodwork 4). If patient is a woman of childrearing age- 18-50. We discussed the importance of contraception during the first 12-18 months post op, and we discussed that fertility will increase following the procedure. Advised patient to discuss with her OBGYN regarding contraception. Patient counseled with good understanding verbalized. 5). Discussed stopping PPI with patient. Patient is call if any mentioned symptoms return: persistent nausea all day, epigastric pain, pain radiating under either side of rib cage or pain in the middle of their back that is not improving. Additional orders: Orders Placed This Encounter Procedures Zinc Folate Iron Ferritin Magnesium Vitamin D Deficiency Screening (Vit D 25) Vitamin B12 Vitamin B1, whole blood Lipid panel Comprehensive metabolic panel CBC ATTESTATION I personally interviewed the patient and reviewed their past medical, surgical, medication, allergy, social and family histories. I have performed an independent physical examination and have reviewed all pertinent laboratory and imaging results. I have reviewed with the patient my assessment of their condition as well as the treatment recommendations and the associated risks benefits and options. I have spent greater than 51% of 25 minute office visit in face to face discussion and counseling of this patient regarding the details, risks, benefits and options of the proposed treatment. OD COLLAZO MD, [facility] Cinetechnician - [facility] Weight Management [place] End Finder Twisting Department - Advanced GI MIS and Bariatric Surgery Fellowship [facility] Patient Care Team: Chris Rosa MD as PCP - General Mary Chau RN as Registered Nurse Jarrod Collazo MD as Surgeon (General Surgery) documented in this [facility]11-07-2023 History of Present illness Narrative* Osmel Rodriguez MA - 12/27/2022 3:00 PM EST [facility] PROGRESS NOTE POST WEIGHT LOSS SURGERY FOLLOW UP Patient: Laquita Choudhury Service Date: 12/27/2022 Patient is 7 month(s) s/p Sleeve Gastrectomy Today's Metrics: Post-Surgical Weight Loss Date: 12/27/22 Height: 5' 1 (154.9 cm) Weight: 184 lb 6.4 oz (83.6 kg) BMI: 34.84 Weight Change: -8.6 lbs Total Weight Change: -56.6 lbs % EBWL: 42% Comments: 7M Pre-op Weight Metrics: Post-op Weight Metrics: %EBWL: % EBWL: 42% Weight Change Since Last Visit: Weight Change: -8.6 lbs Weight Change from Highest Pre-op Weight: Total Weight Change: -56.6 lbs Patient has the following questions: None Reported Pain: Patient rates pain on scale 0-10 as: 0 Exercise Compliance: Exercising: yes If yes: Type: walking Times per week: 5 Min per session: 3.5 [place] Risk Assessment Patient does not take medications which affect BP or mental status Patient does not have newly prescribed or changed dosage of medications within past 30 days which affect BP or mental status Patient has not fallen in the past 2 months Patient does not demonstrate unsteady gait Patient uses the following ambulatory assistive devices: none Patient states the presence of the following traits which increases risk of fall: none Patient is not on home O2 Labs Completed: yes - If NO, patient instructed to get labs drawn today or GINA If YES: Labs completed at [facility]? yes If yes see Labs Tab Labs completed at Non-[facility] facility? no If yes see Encounters Tab - Orders only - Historical Provider - Date: 12/20/2022 Completed by: Osmel Rodriguez MA * Vale Aponte RD - 12/27/2022 3:00 PM EST [facility] BARI[facility]RIC CARE [place] > 6 MONTH POST-OPERATIVE DIETITIAN VISIT Date: 12/27/22 Patient's weight decreased by: 56.6 lbs Patient does consume 5-6 small meals daily Patient s portions are adequate for current diet: -1 cup Protein requirements discussed- currently consuming 60-80 grams protein daily. Current protein sources: Jamaican yogurt, cottage cheese, chicken, turkey, Protein shake, eggs, beans,nuts Recommendations:none Fluid requirements discussed. Current Fluid Intake: 40-60 oz/day Patient does drink sugar-free, caffeine-free and carbonation-free fluids only. Patient does wait 30 minutes before and after meals to drink Exercise activities discussed. Patient does currently exercise. She was reminded that regular exercise is critical part of a successful outcome following weight loss surgery. (Walking) Behavioral/Emotional changes reviewed. Patient does feel comfortable with changes in eating behaviors and associated emotional changes. She was reminded that psychological counseling is available through the [facility] post-operatively. Recent Nutrient Concerns and Vitamin Supplementation Changes: Pt compliant with vitamin/mineral protocol. Noted low ferritin-labs addressed by [facility]-see TE 12/26/2022. Notes/Comments: Pt doing well. Encourage try Smooth Move tea to aid in constipation and adding to fluid intake. Pt encouraged to call/Mychart with questions. Visit completed by: Vale Aponte RD * Ekaterina Wharton APRN - HANDLE ASSEMBLER - 12/27/2022 3:00 PM EST Images from the original note were not included. JARROD COLLAZO MD , FACS, [facility] BARIATRIC AND METABOLIC SURGERY [facility] 6 MONTH POST-OP EVALUATION 12/27/2022 PATIENT: Laquita Choudhury DATE OF : 1975 CHIEF COMPLAINT 6 month follow-up status post Laparoscopic Sleeve Gastrectomy SUBJECTIVE Laquita Choudhury is a 47 y.o. female who presents to the bariatric care center today for their 6 month evaluation following bariatric surgery with Dr. Collazo. The total weight lost is 56 pounds for a 42 % EWL. Overall, the patient is satisfied with the short-term weight loss and health benefits related to the bariatric intervention. Dietary compliance concerns: No Exercise and activity concerns: No Compliance and phychologic concerns: No Dysphagia and eating concerns: No Excessive skin concerns: No The patient is feeling well and denies any major complaints or GI symptoms. The dietary regimen andexercise activities are going well. The patient is compliant with protein intake and vitamin/trace element supplementation. Labs were Completed Laboratory results were within an acceptable range Review of Systems Constitutional: Negative for chills and fever. HENT: Negative for sore throat and trouble swallowing. Respiratory: Negative for chest tightness and shortness of breath. Cardiovascular: Negative for chest pain and leg swelling. Gastrointestinal: Negative for abdominal distention, diarrhea, nausea and vomiting. Genitourinary: Negative for decreased urine volume. Skin: Negative for rash. Neurological: Negative for dizziness, syncope and weakness. Psychiatric/Behavioral: Negative for confusion. The patient is not nervous/anxious. Current Medications: Patient's Medications New Prescriptions No medications on file Previous Medications ACETAMINOPHEN (TYLENOL) 500 MG TABLET Take 500 mg by mouth every 8 hours as needed for mild pain (1-3). ALBUTEROL 108 (90 BASE) MCG/ACT INHALER Inhale 2 puffs every 4 hours as needed. CALCIUM CITRATE-VITAMIN D (CALCIUM CITRATE +D PO) Take 500 mg by mouth 3 times daily. CHOLECALCIFEROL (D3-5) 5,000 UNITS TABLET Take 1 tablet by mouth in the morning. CYANOCOBALAMIN (VITAMIN B-12) 500 MCG TABLET Take 500 mcg by mouth daily. Sublingual FERROUS SULFATE 325 (65 FE) MG TABLET Take 325 mg by mouth 2 times daily. LEVOTHYROXINE (SYNTHROID, LEVOXYL) 150 MCG TABLET Take 150 mcg by mouth every morning (before breakfast). Five days weekly MULTIPLE VITAMINS-IRON (MULTIVITAMIN/IRON PO) Take 1 Dose by mouth daily. ZINC GLUCONATE 50 MG TABLET Take 50 mg by mouth daily. Modified Medications No medications on file Discontinued Medications DULOXETINE (CYMBALTA) [address] CAPSULE Take 60 mg by mouth in the morning. OMEPRAZOLE (PRILOSEC) [address] CAPSULE Take 1 capsule (20 mg) by mouth daily. Do not crush or chew. PHYSICAL EXAM BP 125/82 Pulse 88 Temp 36.8 C (98.2 F) Resp 16 Ht 5' 1 (1.549 m) Wt 184 lb 6.4 oz (83.6kg) BMI 34.84 kg/m General: This patient is awake, alert, and oriented, and is in no apparent distress. Cardiac: Regular rate and rhythm without evidence of murmur. Respiratory: Clear to auscultation bilaterally. Abdomen: Soft, non-tender, non-distended without masses/ No evidence of abdominal hernia / Incisions consistent with previous surgeries. Head and Neck: Normocephalic and atraumatic/soft and supple, no lymphadenopathy or obvious bruits. Extremities: No cyanosis, clubbing or edema/ No calf tenderness/No restrictions of movement, is ambulatory without assistance. Neurological: Intact x 4 extremities, no focal deficits notes. Skin: No rashes or lesions noted. Incisions are clean dry and intact without evidence of infection or erythema. ASSESSMENT 6 month status post bariatric surgery Visit Diagnoses: 1. Deficiency of multiple nutrient elements 2. Hypothyroidism, unspecified type 3. Class 1 obesity due to excess calories with body mass index (BMI) of 34.0 to 34.9 in adult, unspecified whether serious comorbidity present PLAN 1). Compliance with exercise and dietary regimen (see dietitian recommendations) 2). Follow up with PCP for regular health maintenance vistis 3). Follow up with obesity medicine team for annual bariatric follow up / bloodwork 4). If patient is a woman of childrearing age- 18-50. We discussed the importance of contraception during the first 12-18 months post op, and we discussed that fertility will increase following the procedure. Advised patient to discuss with her OBGYN regarding contraception. Patient counseled with good understanding verbalized. 5). Discussed stopping PPI with patient. Patient is call if any mentioned symptoms return: persistent nausea all day, epigastric pain, pain radiating under either side of rib cage or pain in the middle of their back that is not improving. Additional orders: Orders Placed This Encounter Procedures Zinc Folate Iron Ferritin Magnesium Vitamin D Deficiency Screening (Vit D 25) Vitamin B12 Vitamin B1, whole blood Lipid panel Comprehensive metabolic panel CBC ATTESTATION I personally interviewed the patient and reviewed their past medical, surgical, medication, allergy, social and family histories. I have performed an independent physical examination and have reviewed all pertinent laboratory and imaging results. I have reviewed with the patient my assessment of their condition as well as the treatment recommendations and the associated risks benefits and options. I have spent greater than 51% of 25 minute office visit in face to face discussion and counseling of this patient regarding the details, risks, benefits and options of the proposed treatment. OD COLLAZO MD, [facility] Cinetechnician - [facility] Weight Management [place] End Finder Twisting Department - Advanced GI MIS and Bariatric Surgery Fellowship [facility] Patient Care Team: Chris Rosa MD as PCP - General Mary Chau RN as Registered Nurse Jarrod Collazo MD as Surgeon (General Surgery) documented in this [place] [address]-07-2023 Miscellaneous Notes* Addendum Note - Doni Alcantar - 12/27/2022 3:00 PM ESTAddended by: DONI ALCANTAR on: 06/14/2023 04:31 PM Modules accepted: Orders documented in this [address]07-2023 Note* Addendum Note - Doni Alcantar - 12/27/2022 3:00 PM ESTAddended by: DONI ALCANTAR on: 06/14/2023 04:31 PM Modules accepted: Orders [place] [id number] Telephone encounter Note* Telephone Encounter - LISSET Reveles CNP - 12/26/2022 3:00 PM EST NOTED, THANKS. SIGNED. [id number] Miscellaneous Notes* Telephone Encounter - LISSET Reveles CNP - 12/26/2022 3:00 PM EST NOTED, THANKS. SIGNED. * Telephone Encounter - Radha Hoffman RD - 12/26/2022 2:50 PM EST Spoke to patient over MyChart regarding labs. Patient reports she is taking daily MVI with 18 mg of iron and ferrous sulfate 325 mg twice daily. She does report to taking MVI and calcium together, so RD encouraged patient continue taking MVI with iron once daily, ferrous sulfate 325 mg BID, but recommended spacing out the iron and calcium by at least 2 hours. Encouraged patient discuss lipids with PCP. Orders pending to recheck labs in 3 months. * Telephone Encounter - Radha oHffman RD - 12/21/2022 8:10 AM EDT DOS 05/24/2022 LSG AD. Next OV 12/27/22 for 7M POP Labs (12/20/22) Hgb: 11.4 (L) Hct: 34.9 (L) Ferritin: 8 (L normal) Iron: 44 (L normal) Lipids -- defer to PCP Sending LOFTYhart message to patient to discuss labs. * Telephone Encounter - Radha Hoffman RD - 12/21/2022 8:10 AM EDT ----- Message from LISSET Reveles CNP sent at 12/21/2022 7:30 AM EDT ----- Ferritin low still. Chol to pcp, thanks. documented in this [facility]11-06-2023 Telephone encounter Note* Telephone Encounter - Radha Hoffman RD - 12/26/2022 2:50 PM EST Spoke to patient over LOFTYhart regarding labs. Patient reports she is taking daily MVI with 18 mg of iron and ferrous sulfate 325 mg twice daily. She does report to taking MVI and calcium together, so RD encouraged patient continue taking MVI with iron once daily, ferrous sulfate 325 mg BID, but recommended spacing out the iron and calcium by at least 2 hours. Encouraged patient discuss lipids with PCP. Orders pending to recheck labs in 3 months. [id number] Telephone encounter Note* Telephone Encounter - Radha Hoffman RD - 12/21/2022 8:10 AM EDT DOS 05/24/2022 LSG AD. Next OV 12/27/22 for 7M POP Labs (12/20/22) Hgb: 11.4 (L) Hct: 34.9 (L) Ferritin: 8 (L normal) Iron: 44 (L normal) Lipids -- defer to PCP Sending MyChart message to patient to discuss labs. [facility] [id number] Telephone encounter Note* Telephone Encounter - Radha Hoffman RD - 12/21/2022 8:10 AM EDT ----- Message from Ekaterina Wharton APRN - DIANA sent at 12/21/2022 7:30 AM EDT ----- Ferritin low still. Chol to pcp, thanks. [facility] [id number] NoteAddended by: EKATERINA WHARTON on: 11/23/2022 01:02 PM Modules accepted: [facility]07-13-2023 Telephone encounter Note* Telephone Encounter - Ailyn Pollard RD - 09/01/2022 9:27 AM EDT Sent pt MyChart message regarding low Zinc at 53.6. Pt to add 50 mg zinc daily. Med list has been updated. Labs will be rechecked again at 6 month follow up. Pt will be in for 3 month office visit today as well. [facility] [id number] Miscellaneous Notes* Telephone Encounter - Ailyn Pollard RD - 09/01/2022 9:27 AM EDT Sent pt MyChart message regarding low Zinc at 53.6. Pt to add 50 mg zinc daily. Med list has been updated. Labs will be rechecked again at 6 month follow up. Pt will be in for 3 month office visit today as well. * Telephone Encounter - Ailyn Pollard RD - 08/30/2022 9:59 AM EDT Sent pt MyChart message regarding low Iron at 30 and ferritin at 9. H/H wnl. Pt is currently takingmvi with iron and 325 mg ferrous sulfate daily. Will increase to BID. Med list has been updated. Labs will be rechecked again at 6 month follow up. Pt will be in for 3 month office visit today as well. * Telephone Encounter - Ailyn Pollard RD - 08/30/2022 9:59 AM EDT ----- Message from Kylie Baum NP sent at 08/30/2022 9:32 AM EDT ----- Low iron and ferritin. Thanks! documented in this [facility]07-11-2023 [facility] PROGRESS NOTE POST WEIGHT LOSS SURGERY FOLLOW UP Patient: Laquita Choudhury Service Date: 08/30/2022 Patient is 3 month(s) s/p Sleeve Gastrectomy Today's Metrics: Post-Surgical Weight Loss Date: 08/30/22 Height: 5' 1 (154.9 cm) ([facility]) Weight: 193 lb (87.5 kg) ([facility]) BMI: 36.46 Weight Change: -17.6 lbs Total Weight Change: -48 lbs % EBWL: 35% Comments: 3M Pre-op Weight Metrics: Post-op Weight Metrics: %EBWL: % EBWL: 35% Weight Change Since Last Visit: Weight Change: -17.6 lbs Weight Change from Highest Pre-op Weight: Total Weight Change: -48 lbs Patient has the following questions: None Reported Pain: Patient rates pain on scale 0-10 as: 0 Exercise Compliance: Exercising: yes If yes: Type: walking Times per week: 4-5 Min per session: 45-60 [place] Risk Assessment Patient does not take medications which affect BP or mental status Patient does not have newly prescribed or changed dosage of medications within past 30 days which affect BP or mental status Patient has not fallen in the past 2 months Patient does not demonstrate unsteady gait Patient uses the following ambulatory assistive devices: none Patient states the presence of the following traits which increases risk of fall: none Patient is not on home O2 Labs Completed: yes - If NO, patient instructed to get labs drawn today or GINA If YES: Labs completed at [facility]? yes If yes see Labs Tab [facility]? no If yes see Encounters Tab - Orders only - Historical Provider - Date: 08/29/2022 Completed by: Rhona Shankar, [place] [address]-11-2023 NoteAddended by: RITA PANDYA on: 12/20/2022 03:56 PM Modules accepted: [place] [address]-11-2023 History of Present illness Narrative* Ekaterina Wharton APRN - HANDLE ASSEMBLER - 08/30/2022 2:30 PM EDT Images from the original note were not included. JARROD COLLAZO MD , FACS, [facility] MINIMALLY INVASIVE & METABOLIC / BARIATRIC SURGERY [facility]BS - 3 MONTH FOLLOW UP 08/30/2022 PATIENT: Laquita Choudhury DATE OF : 1975 HISTORY OF PRESENT ILLNESS Chief Complaint: 3 month follow-up status post laparoscopic SLEEVE GASTRECTOMY - aka SG Laquita Choudhury is a 47 y.o. female who presents to the bariatric care center today for their 3 month evaluation following bariatric surgery with Dr. Collazo. The total weight lost is 48 pounds for a 35 % EWL. Overall, the patient is satisfied with the weight loss and health benefits related to the bariatric intervention. Dietary compliance concerns: No Exercise and activity concerns: No Compliance and phychologic concerns: No Dysphagia and eating concerns: No Excessive skin concerns: No The patient is feeling well and denies any major complaints or GI symptoms. The dietary regimen andexercise activities are going well. The patient is compliant with protein intake and vitamin/trace element supplementation. Labs were Completed Laboratory results were LOW IRON, NORMAL HGB. Review of Symptoms Constitutional: negative for chills, fevers, night sweats Respiratory: negative for cough, dyspnea on exertion, hemoptysis, and sputum Cardiovascular: negative for chest pain, chest pressure/discomfort, dyspnea, irregular heart beat, palpitations, and syncope Gastrointestinal: negative for abdominal pain, diarrhea, dysphagia, melena, reflux symptoms, and vomiting Constipation occasionally. Neurological: negative for dizziness, paresthesia, seizures, and weakness PAST HISTORIES Past Medical History: Diagnosis Date Asthma Cancer ([facility]) ([facility]) June 2020 COVID-19 vaccine series completed 02/03/2021 Hx of thyroid cancer Joint pain, hip Joint pain, knee Morbid obesity due to excess calories ([facility]) 09/28/2021 Muscle weakness Postoperative hypothyroidism Pre-diabetes Seasonal allergies SOB (shortness of breath) on exertion Past Surgical History: Procedure Laterality Date ANKLE FRACTURE SURGERY 1993 [place] APPENDECTOMY 2002 [place] DILATION AND CURETTAGE OF UTERUS [id number] OVARIAN CYST REMOVAL Jamar SLEEVE GASTRECTOMY, LAPAROSCOPIC (HISTORICAL) 05/24/2022 Lap sleeve gastrectomy with liver wedge biopsy THYROIDECTOMY Bilateral 2020 Dr. Johnson - Edwin TONSILLECTOMY (HISTORICAL) 1980 [place] Family History Problem Relation Name Age of Onset Obesity Mother Jadeice Diabetes Mother Darian Diabetes type II Mother Darian Cancer Maternal Grandmother Laquita No Known Allergies Current Medications: Current Outpatient Medications Medication Sig Dispense Refill acetaminophen (Tylenol) 500 MG tablet Take 500 mg by mouth every 8 hours as needed for mild pain (1-3). albuterol 108 (90 Base) MCG/ACT inhaler Inhale 2 puffs every 4 hours as needed. Calcium Citrate-Vitamin D (CALCIUM CITRATE +D PO) Take 500 mg by mouth 3 times daily. cholecalciferol (D3-5) 5,000 Units tablet Take 1 tablet by mouth in the morning. cyanocobalamin (Vitamin B-12) 500 MCG tablet Take 500 mcg by mouth daily. Sublingual DULoxetine (Cymbalta) [address] capsule Take 60 mg by mouth in the morning. ferrous sulfate 325 (65 Fe) MG tablet Take 325 mg by mouth 2 times daily. levothyroxine (Synthroid, Levoxyl) 150 MCG tablet Take 150 mcg by mouth every morning (before breakfast). Five days weekly Multiple Vitamins-Iron (MULTIVITAMIN/IRON PO) Take 1 Dose by mouth daily. omeprazole (PriLOSEC) [address] capsule Take 1 capsule (20 mg) by mouth daily. Do not crush or chew.(Patient taking differently: Take 20 mg by mouth daily. Do not crush or chew.) 90 capsule 1 No current facility-administered medications for this visit. PHYSICAL EXAM BP 128/85 Pulse 94 Temp 36.7 C (98 F) Resp 16 Ht 5' 1 (1.549 m) Wt 193 lb (87.5 kg) BMI 36.47 kg/m General: This patient is awake, alert, and oriented, with normal affect and is in no apparent distress. Cardiac: Regular rate and rhythm without evidence of murmur. Respiratory: Clear to auscultation bilaterally with normal effort. Abdomen: soft, non-tender, non-distended without masses/ No evidence of abdominal hernia / Incisions consistent with previous surgeries. Surgical sites: Clean dry and intact Head and Neck: normocephalic and atraumatic/soft and supple, no lymphadenopathy or obvious bruits. No thyroidmegaly. Extremities: No cyanosis, clubbing or edema/ No calf tenderness/No restrictions of movement, is ambulatory without assistance. Neurological: Intact x 4 extremities, normal sensation, no focal deficits notes. Skin: Skin cool, warm and dry. No rashes or lesions noted. Rectal: Deferred LABORATORY STUDIES AND IMAGING Laboratory Studies: Recent Labs 08/29/22 1608 NA 136 K 4.5 CL 103 CO2 28 BUN 17 CREATININE 0.68 GLUCOSE 102* CALCIUM 8.9 Recent Labs 08/29/22 1608 WBC 5.3 RBC 4.23 HGB 12.4 HCT 37.7 MCV 89.1 MCH 29.3 MCHC 32.9 RDW 13.6 PLT 213 MPV 11.3 Recent Labs 08/29/22 1608 ALKPHOS 55 ALT 18 AST 21 PROT 6.8 BILITOT 0.1* ASSESSMENT 3 month status post SLEEVE GASTRECTOMY - aka SG Visit Diagnoses: 1. Hypothyroidism, unspecified type 2. Deficiency of multiple nutrient elements 3. Class 2 severe obesity due to excess calories with serious comorbidity and body mass index (BMI)of 36.0 to 36.9 in adult (HCC) 4. Iron deficiency anemia, unspecified iron deficiency anemia type PLAN 1). Compliance with exercise and dietary regimen (see dietitian recommendations) 2). Patient to follow up w/ PCP for follow for management of DM and HTN medications 3). Follow up for 1 month post-operative evaluation 4). Advance diet and begin supplements per RD note 5). Low iron, dose of ferrous sulfate doubled, discussed constipation, change in color of stool. Additional orders: 3 month lab-work Orders Placed This Encounter Procedures Zinc Folate Iron Ferritin Magnesium Vitamin D 25 hydroxy Vitamin B12 Vitamin B1, whole blood Lipid panel Comprehensive metabolic panel CBC ATTESTATION I personally interviewed and examined the patient. I have reviewed their past medical, surgical, medication, allergy, social and family histories. I have performed an independent physical examinationand have reviewed all pertinent laboratory and imaging results. I have reviewed with the patient myassessment of their condition as well as the treatment recommendations and the associated risks, benefits and options. I have spent a total of 30 minutes for this office visit in [id number] discussion, counseling of this patient, reviewing medical records and documenting the encounter. OD COLLAZO MD, [facility] Cinetechnician - Weight Management [place] / [facility] End Finder Twisting Department - Advanced GI MIS, Foregut and Bariatric Surgery Fellowship ---[facility]--- Patient Care Team: Chris Rosa MD as PCP - General Mary Chau RN as Registered Nurse Jarrod Collazo MD as Surgeon (General Surgery) * Rhona Shankar MA - 08/30/2022 2:30 PM EDT [facility] PROGRESS NOTE POST WEIGHT LOSS SURGERY FOLLOW UP Patient: Laquita Choudhury Service Date: 08/30/2022 Patient is 3 month(s) s/p Sleeve Gastrectomy Today's Metrics: Post-Surgical Weight Loss Date: 08/30/22 Height: 5' 1 (154.9 cm) ([facility]) Weight: 193 lb (87.5 kg) ([facility]) BMI: 36.46 Weight Change: -17.6 lbs Total Weight Change: -48 lbs % EBWL: 35% Comments: 3M Pre-op Weight Metrics: Post-op Weight Metrics: %EBWL: % EBWL: 35% Weight Change Since Last Visit: Weight Change: -17.6 lbs Weight Change from Highest Pre-op Weight: Total Weight Change: -48 lbs Patient has the following questions: None Reported Pain: Patient rates pain on scale 0-10 as: 0 Exercise Compliance: Exercising: yes If yes: Type: walking Times per week: 4-5 Min per session: 45-60 Falls Risk Assessment Patient does not take medications which affect BP or mental status Patient does not have newly prescribed or changed dosage of medications within past 30 days which affect BP or mental status Patient has not fallen in the past 2 months Patient does not demonstrate unsteady gait Patient uses the following ambulatory assistive devices: none Patient states the presence of the following traits which increases risk of fall: none Patient is not on home O2 Labs Completed: yes - If NO, patient instructed to get labs drawn today or GINA If YES: Labs completed at [facility]? yes If yes see Labs Tab Labs completed at Non-[facility] facility? no If yes see Encounters Tab - Orders only - Historical Provider - Date: 08/29/2022 Completed by: Rhona Shankar MA * Hetal Padgett RD - 08/30/2022 2:30 PM EDT [facility] [place] 3 MONTH POST-OPERATIVE DIETITIAN VISIT Date: 08/30/22 Patient's weight decreased by: 48 lbs Patient does consume 5-6 small meals daily Patient s portions are adequate for current diet: -1 cup; 1/2c total Protein requirements discussed- currently consuming not tracking; estimates 65+ grams of protein daily. Current protein sources: protein powder, meats, nuts, cheese Recommendations: doing well Fluid requirements discussed. Current Fluid Intake: close to 64oz Patient does drink sugar-free, caffeine-free and carbonation-free fluids only. Patient does waiting 30 minutes before and after meals to drink Exercise activities discussed. Patient does currently exercising. She was reminded that regular exercise is critical part of a successful outcome following weight loss surgery. Behavioral/Emotional changes reviewed. Patient does feel comfortable with changes in eating behaviors and associated emotional changes. She was reminded that psychological counseling is available through the [facility] post-operatively. Patient told she may switch to non-chewable vitamins and calcium citrate. Recent Nutrient Concerns and Vitamin Supplementation Changes: compliant with vitamins. Labs addressed by Ailyn JEWELL in TE 08/30. Pt agreeable to recommendations Notes/Comments: doing well, to call with any questions/concerns, track protein, increase fluids Visit completed by: Hetal Padgett RD documented in this [facility]07-11-2023 History of Present illness Narrative* LISSET Reveles HANDLE ASSEMBLER - 08/30/2022 2:30 PM EDT Images from the original note were not included. JARROD COLLAZO MD , FACS, [facility] MINIMALLY INVASIVE & METABOLIC / BARIATRIC SURGERY [facility] - 3 MONTH FOLLOW UP 08/30/2022 PATIENT: Laquita Choudhury DATE OF : 1975 HISTORY OF PRESENT ILLNESS Chief Complaint: 3 month follow-up status post laparoscopic SLEEVE GASTRECTOMY - aka SG Laquita Choudhury is a 47 y.o. female who presents to the bariatric care center today for their 3 month evaluation following bariatric surgery with Dr. Collazo. The total weight lost is 48 pounds for a 35 % EWL. Overall, the patient is satisfied with the weight loss and health benefits related to the bariatric intervention. Dietary compliance concerns: No Exercise and activity concerns: No Compliance and phychologic concerns: No Dysphagia and eating concerns: No Excessive skin concerns: No The patient is feeling well and denies any major complaints or GI symptoms. The dietary regimen andexercise activities are going well. The patient is compliant with protein intake and vitamin/trace element supplementation. Labs were Completed Laboratory results were LOW IRON, NORMAL HGB. Review of Symptoms Constitutional: negative for chills, fevers, night sweats Respiratory: negative for cough, dyspnea on exertion, hemoptysis, and sputum Cardiovascular: negative for chest pain, chest pressure/discomfort, dyspnea, irregular heart beat, palpitations, and syncope Gastrointestinal: negative for abdominal pain, diarrhea, dysphagia, melena, reflux symptoms, and vomiting Constipation occasionally. Neurological: negative for dizziness, paresthesia, seizures, and weakness PAST HISTORIES Past Medical History: Diagnosis Date Asthma Cancer ([facility]/HCC) ([facility]) June 2020 COVID-19 vaccine series completed 02/03/2021 Hx of thyroid cancer Joint pain, hip Joint pain, knee Morbid obesity due to excess calories ([facility]) 09/28/2021 Muscle weakness Postoperative hypothyroidism Pre-diabetes Seasonal allergies SOB (shortness of breath) on exertion Past Surgical History: Procedure Laterality Date ANKLE FRACTURE SURGERY 1993 [place] APPENDECTOMY 2002 Edwin DILATION AND CURETTAGE OF UTERUS [id number] OVARIAN CYST REMOVAL Jamar SLEEVE GASTRECTOMY, LAPAROSCOPIC (HISTORICAL) 05/24/2022 Lap sleeve gastrectomy with liver wedge biopsy THYROIDECTOMY Bilateral 2020 Dr. Johnson - [place] TONSILLECTOMY (HISTORICAL) 1980 [place] Family History Problem Relation Name Age of Onset Obesity Mother Jadeice Diabetes Mother Jadeice Diabetes type II Mother Derice Cancer Maternal Grandmother Laquita No Known Allergies Current Medications: Current Outpatient Medications Medication Sig Dispense Refill acetaminophen (Tylenol) 500 MG tablet Take 500 mg by mouth every 8 hours as needed for mild pain (1-3). albuterol 108 (90 Base) MCG/ACT inhaler Inhale 2 puffs every 4 hours as needed. Calcium Citrate-Vitamin D (CALCIUM CITRATE +D PO) Take 500 mg by mouth 3 times daily. cholecalciferol (D3-5) 5,000 Units tablet Take 1 tablet by mouth in the morning. cyanocobalamin (Vitamin B-12) 500 MCG tablet Take 500 mcg by mouth daily. Sublingual DULoxetine (Cymbalta) [address] capsule Take 60 mg by mouth in the morning. ferrous sulfate 325 (65 Fe) MG tablet Take 325 mg by mouth 2 times daily. levothyroxine (Synthroid, Levoxyl) 150 MCG tablet Take 150 mcg by mouth every morning (before breakfast). Five days weekly Multiple Vitamins-Iron (MULTIVITAMIN/IRON PO) Take 1 Dose by mouth daily. omeprazole (PriLOSEC) [address] capsule Take 1 capsule (20 mg) by mouth daily. Do not crush or chew.(Patient taking differently: Take 20 mg by mouth daily. Do not crush or chew.) 90 capsule 1 No current facility-administered medications for this visit. PHYSICAL EXAM BP 128/85 Pulse 94 Temp 36.7 C (98 F) Resp 16 Ht 5' 1 (1.549 m) Wt 193 lb (87.5 kg) BMI 36.47 kg/m General: This patient is awake, alert, and oriented, with normal affect and is in no apparent distress. Cardiac: Regular rate and rhythm without evidence of murmur. Respiratory: Clear to auscultation bilaterally with normal effort. Abdomen: soft, non-tender, non-distended without masses/ No evidence of abdominal hernia / Incisions consistent with previous surgeries. Surgical sites: Clean dry and intact Head and Neck: normocephalic and atraumatic/soft and supple, no lymphadenopathy or obvious bruits. No thyroidmegaly. Extremities: No cyanosis, clubbing or edema/ No calf tenderness/No restrictions of movement, is ambulatory without assistance. Neurological: Intact x 4 extremities, normal sensation, no focal deficits notes. Skin: Skin cool, warm and dry. No rashes or lesions noted. Rectal: Deferred LABORATORY STUDIES AND IMAGING Laboratory Studies: Recent Labs 08/29/22 1608 NA 136 K 4.5 CL 103 CO2 28 BUN 17 CREATININE 0.68 GLUCOSE 102* CALCIUM 8.9 Recent Labs 08/29/22 1608 WBC 5.3 RBC 4.23 HGB 12.4 HCT 37.7 MCV 89.1 MCH 29.3 MCHC 32.9 RDW 13.6 PLT 213 MPV 11.3 Recent Labs 08/29/22 1608 ALKPHOS 55 ALT 18 AST 21 PROT 6.8 BILITOT 0.1* ASSESSMENT 3 month status post SLEEVE GASTRECTOMY - aka SG Visit Diagnoses: 1. Hypothyroidism, unspecified type 2. Deficiency of multiple nutrient elements 3. Class 2 severe obesity due to excess calories with serious comorbidity and body mass index (BMI)of 36.0 to 36.9 in adult (HCC) 4. Iron deficiency anemia, unspecified iron deficiency anemia type PLAN 1). Compliance with exercise and dietary regimen (see dietitian recommendations) 2). Patient to follow up w/ PCP for follow for management of DM and HTN medications 3). Follow up for 1 month post-operative evaluation 4). Advance diet and begin supplements per RD note 5). Low iron, dose of ferrous sulfate doubled, discussed constipation, change in color of stool. Additional orders: 3 month lab-work Orders Placed This Encounter Procedures Zinc Folate Iron Ferritin Magnesium Vitamin D 25 hydroxy Vitamin B12 Vitamin B1, whole blood Lipid panel Comprehensive metabolic panel CBC ATTESTATION I personally interviewed and examined the patient. I have reviewed their past medical, surgical, medication, allergy, social and family histories. I have performed an independent physical examinationand have reviewed all pertinent laboratory and imaging results. I have reviewed with the patient myassessment of their condition as well as the treatment recommendations and the associated risks, benefits and options. I have spent a total of 30 minutes for this office visit in [id number] discussion, counseling of this patient, reviewing medical records and documenting the encounter. OD COLLAZO MD, [facility], [facility] Cinetechnician - Weight Management [place] / [facility] End Finder Twisting Department - Advanced GI MIS, Foregut and Bariatric Surgery Fellowship ---[facility]--- Patient Care Team: Chris Rosa MD as PCP - General Mary Chau RN as Registered Nurse Jarrod Collazo MD as Surgeon (General Surgery) * Rhona Shankar MA - 08/30/2022 2:30 PM EDT [facility] PROGRESS NOTE POST WEIGHT LOSS SURGERY FOLLOW UP Patient: Laquita Choudhury Service Date: 08/30/2022 Patient is 3 month(s) s/p Sleeve Gastrectomy Today's Metrics: Post-Surgical Weight Loss Date: 08/30/22 Height: 5' 1 (154.9 cm) ([facility]) Weight: 193 lb (87.5 kg) ([facility]) BMI: 36.46 Weight Change: -17.6 lbs Total Weight Change: -48 lbs % EBWL: 35% Comments: 3M Pre-op Weight Metrics: Post-op Weight Metrics: %EBWL: % EBWL: 35% Weight Change Since Last Visit: Weight Change: -17.6 lbs Weight Change from Highest Pre-op Weight: Total Weight Change: -48 lbs Patient has the following questions: None Reported Pain: Patient rates pain on scale 0-10 as: 0 Exercise Compliance: Exercising: yes If yes: Type: walking Times per week: 4-5 Min per session: 45-60 Falls Risk Assessment Patient does not take medications which affect BP or mental status Patient does not have newly prescribed or changed dosage of medications within past 30 days which affect BP or mental status Patient has not fallen in the past 2 months Patient does not demonstrate unsteady gait Patient uses the following ambulatory assistive devices: none Patient states the presence of the following traits which increases risk of fall: none Patient is not on home O2 Labs Completed: yes - If NO, patient instructed to get labs drawn today or GINA If YES: Labs completed at [facility]? yes If yes see Labs Tab Labs completed at Non-[facility] facility? no If yes see Encounters Tab - Orders only - Historical Provider - Date: 08/29/2022 Completed by: Rhona Shankar MA * Hetal Padgett RD - 08/30/2022 2:30 PM EDT [facility] 3 MONTH POST-OPERATIVE DIETITIAN VISIT Date: 08/30/22 Patient's weight decreased by: 48 lbs Patient does consume 5-6 small meals daily Patient s portions are adequate for current diet: -1 cup; 1/2c total Protein requirements discussed- currently consuming not tracking; estimates 65+ grams of protein daily. Current protein sources: protein powder, meats, nuts, cheese Recommendations: doing well Fluid requirements discussed. Current Fluid Intake: close to 64oz Patient does drink sugar-free, caffeine-free and carbonation-free fluids only. Patient does waiting 30 minutes before and after meals to drink Exercise activities discussed. Patient does currently exercising. She was reminded that regular exercise is critical part of a successful outcome following weight loss surgery. Behavioral/Emotional changes reviewed. Patient does feel comfortable with changes in eating behaviors and associated emotional changes. She was reminded that psychological counseling is available through the [facility] post-operatively. Patient told she may switch to non-chewable vitamins and calcium citrate. Recent Nutrient Concerns and Vitamin Supplementation Changes: compliant with vitamins. Labs addressed by Ailyn JEWELL in TE 08/30. Pt agreeable to recommendations Notes/Comments: doing well, to call with any questions/concerns, track protein, increase fluids Visit completed by: Hetal Padgett RD documented in this [facility]07-11-2023 Miscellaneous Notes* Addendum Note - Rita Pandya - 08/30/2022 2:30 PM EDTAddended by: RITA PANDYA on: 12/20/2022 03:56 PM Modules accepted: Orders documented in this [facility]07-11-2023 Note* Addendum Note - Rita Pandya - 08/30/2022 2:30 PM EDTAddended by: RITA PANDYA on: 12/20/2022 03:56 PM Modules accepted: Orders [id number] Telephone encounter Note* Telephone Encounter - Ailyn Pollard RD - 08/30/2022 9:59 AM EDT Sent pt MyChart message regarding low Iron at 30 and ferritin at 9. H/H wnl. Pt is currently takingmvi with iron and 325 mg ferrous sulfate daily. Will increase to BID. Med list has been updated. Labs will be rechecked again at 6 month follow up. Pt will be in for 3 month office visit today as well. [id number] Telephone encounter Note* Telephone Encounter - Ailyn Pollard RD - 08/30/2022 9:59 AM EDT ----- Message from Kylie Baum NP sent at 08/30/2022 9:32 AM EDT ----- Low iron and ferritin. Thanks! [facility] [id number] Miscellaneous Notes* Telephone Encounter - Ailyn Pollard RD - 08/30/2022 9:59 AM EDT Sent pt LOFTYhart message regarding low Iron at 30 and ferritin at 9. H/H wnl. Pt is currently takingmvi with iron and 325 mg ferrous sulfate daily. Will increase to BID. Med list has been updated. Labs will be rechecked again at 6 month follow up. Pt will be in for 3 month office visit today as well. * Telephone Encounter - Ailyn Pollard RD - 08/30/2022 9:59 AM EDT ----- Message from Kylie Baum NP sent at 08/30/2022 9:32 AM EDT ----- Low iron and ferritin. Thanks! documented in this [facility]STri[facility] [id number] Note* Addendum Note - Kylie Baum NP - 06/29/2022 1:35 PM EDTAddended by: KYLIE BAUM on: 06/29/2022 01:35 PM Modules accepted: Orders [id number] Miscellaneous Notes* Addendum Note - Kylie Baum NP - 06/29/2022 1:35 PM EDTAddended by: KYLIE BAUM on: 06/29/2022 01:35 PM Modules accepted: Orders * Telephone Encounter - Kylie Baum NP - 06/24/2022 10:52 AM EDT Orders signed. * Telephone Encounter - Ailyn Pollard RD - 06/23/2022 11:52 AM EDT Sent pt LogFire message regarding lab results below. Pt to continue taking mvi with iron daily. Will restart 325 mg ferrous sulfate daily. Will increase high K+ foods. Will recheck K+ level in 1 week, will recheck iron levels at 3 month office visit, orders pending, please sign. Thank you so much! 06/22/22: K+ 3.0 Iron 27 Ferritin 7 H/H wnl documented in this [facility]05-10-2023 [facility] PROGRESS NOTE POST WEIGHT LOSS SURGERY FOLLOW UP Patient: Laquita Choudhury Service Date: 06/29/2022 Patient is 1 month(s) s/p Sleeve Gastrectomy Today's Metrics: Post-Surgical Weight Loss Date: 06/29/22 Height: 5' 1 (154.9 cm) Weight: 210 lb 9.6 oz (95.5 kg) BMI: 39.79 Weight Change: -10.2 lbs Total Weight Change: -30.4 lbs % EBWL: 22% Comments: 1M Pre-op Weight Metrics: Post-op Weight Metrics: %EBWL: % EBWL: 22% Weight Change Since Last Visit: Weight Change: -10.2 lbs Weight Change from Highest Pre-op Weight: Total Weight Change: -30.4 lbs Patient has the following questions: None Reported Pain: Patient rates pain on scale 0-10 as: 0 Exercise Compliance: Exercising: yes If yes: Type: walking Times per week: 6 Min per session: 3 miles Falls Risk Assessment Patient does not take medications which affect BP or mental status Patient does not have newly prescribed or changed dosage of medications within past 30 days which affect BP or mental status Patient has not fallen in the past 2 months Patient does not demonstrate unsteady gait Patient uses the following ambulatory assistive devices: none Patient states the presence of the following traits which increases risk of fall: none Patient is not on home O2 Labs Completed: yes - If NO, patient instructed to get labs drawn today or GINA If YES: Labs completed at [facility]? yes If yes see Labs Tab 06/22/2022 Labs completed at Non-[facility] facility? N/A If yes see Encounters Tab - Orders only - Historical Provider - Date: [facility] History of Present illness Narrative* Jarrod Collazo MD - 06/29/2022 8:20 AM EDT Images from the original note were not included. JARROD COLLAZO MD , FACS, [facility] MINIMALLY INVASIVE & METABOLIC / BARIATRIC SURGERY [facility] - 1 MONTH FOLLOW UP 06/29/22 PATIENT: Laquita Choudhury DATE OF : 1975 HISTORY OF PRESENT ILLNESS Chief Complaint: 1 month follow-up status post laparoscopic SLEEVE GASTRECTOMY - aka SG with HH Repair. Laquita Choudhury is a 47 y.o. female who presents to the bariatric care center today for their 1 month evaluation following bariatric surgery with Dr. Collazo. The total weight lost is 30.4 pounds for a 22 % EWL. Overall, the patient is satisfied with the weight loss and health benefits related to the bariatric intervention. Dietary compliance concerns: No Exercise and activity concerns: No Compliance and phychologic concerns: No Dysphagia and eating concerns: No Excessive skin concerns: No The patient is feeling well and denies any major complaints or GI symptoms. The dietary regimen andexercise activities are going well. The patient is compliant with protein intake and vitamin/trace element supplementation. Labs were Completed Laboratory results were Iron 27, K 3.0, Review of Symptoms Constitutional: negative for chills, fevers, night sweats Respiratory: negative for cough, dyspnea on exertion, hemoptysis, and sputum Cardiovascular: negative for chest pain, chest pressure/discomfort, dyspnea, irregular heart beat, palpitations, and syncope Gastrointestinal: negative for abdominal pain, constipation, diarrhea, dysphagia, melena, reflux symptoms, and vomiting Neurological: negative for dizziness, paresthesia, seizures, and weakness PAST HISTORIES Past Medical History: Diagnosis Date Asthma Cancer (CMS/HCC) ([facility]) June 2020 COVID-19 vaccine series completed 02/03/2021 Hx of thyroid cancer Joint pain, hip Joint pain, knee Morbid obesity due to excess calories ([facility]) 09/28/2021 Muscle weakness Postoperative hypothyroidism Pre-diabetes Seasonal allergies SOB (shortness of breath) on exertion Past Surgical History: Procedure Laterality Date ANKLE FRACTURE SURGERY 1993 [place] APPENDECTOMY 2001 Edwin DILATION AND CURETTAGE OF UTERUS [id number] OVARIAN CYST REMOVAL Jamar SLEEVE GASTRECTOMY, LAPAROSCOPIC (HISTORICAL) 05/24/2022 Lap sleeve gastrectomy with liver wedge biopsy THYROIDECTOMY Bilateral 2020 Dr. Johnson - [place] TONSILLECTOMY (HISTORICAL) 1980 [place] Family History Problem Relation Name Age of Onset Obesity Mother Derice Diabetes Mother Darian Diabetes type II Mother Derdevyn Cancer Maternal Grandmother Laquita No Known Allergies PHYSICAL EXAM There were no vitals taken for this visit. General: This patient is awake, alert, and oriented, with normal affect and is in no apparent distress. Cardiac: Regular rate and rhythm without evidence of murmur. Respiratory: Clear to auscultation bilaterally with normal effort. Abdomen: Obese, soft, non-tender, non-distended without masses/ No evidence of abdominal hernia / Incisions consistent with previous surgeries. Surgical sites: Clean dry and intact Head and Neck: Obese, normocephalic and atraumatic/soft and supple, no lymphadenopathy or obvious bruits. No thyroidmegaly. Extremities: No cyanosis, clubbing or edema/ No calf tenderness/No restrictions of movement, is ambulatory without assistance. Neurological: Intact x 4 extremities, normal sensation, no focal deficits notes. Skin: Skin cool, warm and dry. No rashes or lesions noted. Rectal: Deferred LABORATORY STUDIES AND IMAGING Laboratory Studies: No results for input(s): NA, K, CL, CO2, BUN, CREATININE, GLUCOSE, CALCIUM in the last 72 hours. No results for input(s): WBC, RBC, HGB, HCT, MCV, MCH, MCHC, RDW, PLT, MPV in the last 72 hours. No results for input(s): ALKPHOS, ALT, AST, PROT, BILITOT, BILIDIR, LIPASE in the last 72 hours. No lab exists for component: LABALBU ASSESSMENT 1 month status post SLEEVE GASTRECTOMY - aka SG Visit Diagnoses: No diagnosis found. PLAN 1). Compliance with exercise and dietary regimen (see dietitian recommendations) 2). Patient to follow up w/ PCP for follow for management of DM and HTN medications 3). Follow up for 1 month post-operative evaluation 4). Advance diet and begin supplements per RD note 5). Hypokalemia- Supplemented. Additional orders: 3 month lab-work No orders of the defined types were placed in this encounter. ATTESTATION I personally interviewed and examined the patient. I have reviewed their past medical, surgical, medication, allergy, social and family histories. I have performed an independent physical examinationand have reviewed all pertinent laboratory and imaging results. I have reviewed with the patient myassessment of their condition as well as the treatment recommendations and the associated risks, benefits and options. OD COLLAZO MD, [facility] Cinetechnician - Weight Management [place] / [facility] End Finder Twisting Department - Advanced GI MIS, Foregut and Bariatric Surgery Fellowship ---[facility]--- Patient Care Team: Chris Rosa MD as PCP - General Mary Chau RN as Registered Nurse Jarrod Collazo MD as Surgeon (General Surgery) * Radha Calvin LPN - 06/29/2022 8:20 AM EDT [facility]ARE [facility] PROGRESS NOTE POST WEIGHT LOSS SURGERY FOLLOW UP Patient: Laquita Choudhury Service Date: 06/29/2022 Patient is 1 month(s) s/p Sleeve Gastrectomy Today's Metrics: Post-Surgical Weight Loss Date: 06/29/22 Height: 5' 1 (154.9 cm) Weight: 210 lb 9.6 oz (95.5 kg) BMI: 39.79 Weight Change: -10.2 lbs Total Weight Change: -30.4 lbs % EBWL: 22% Comments: 1M Pre-op Weight Metrics: Post-op Weight Metrics: %EBWL: % EBWL: 22% Weight Change Since Last Visit: Weight Change: -10.2 lbs Weight Change from Highest Pre-op Weight: Total Weight Change: -30.4 lbs Patient has the following questions: None Reported Pain: Patient rates pain on scale 0-10 as: 0 Exercise Compliance: Exercising: yes If yes: Type: walking Times per week: 6 Min per session: 3 miles Falls Risk Assessment Patient does not take medications which affect BP or mental status Patient does not have newly prescribed or changed dosage of medications within past 30 days which affect BP or mental status Patient has not fallen in the past 2 months Patient does not demonstrate unsteady gait Patient uses the following ambulatory assistive devices: none Patient states the presence of the following traits which increases risk of fall: none Patient is not on home O2 Labs Completed: yes - If NO, patient instructed to get labs drawn today or GINA If YES: Labs completed at [facility]? yes If yes see Labs Tab 06/22/2022 Labs completed at Non-[facility] facility? N/A If yes see Encounters Tab - Orders only - Historical Provider - Date: Completed by: Radha Calvin LPN * Ailyn Pollard RD - 06/29/2022 8:20 AM EDT [facility] 1 MONTH POST-OPERATIVE DIETITIAN VISIT Date: 06/29/22 Current diet reviewed with patient. Soft and maintenance diets discussed and. handouts provided. Patient's weight decreased by: -30 lbs Patient consumes 5-6 small meals daily: Yes Patient s portions are adequate for current diet: cup Protein requirements discussed- currently consuming 65+ grams of protein daily. Current protein sources: meats, cheese, eggs not always working Recommendations: na Fluid requirements discussed. Current Fluid Intake: 64 oz Patient drinks sugar-free, caffeine-free and carbonation-free fluids only. Patient waits 30 minutes before and after meals to drink Exercise activities discussed. Patient is currently exercising. She was reminded that regular exercise is critical part of a successful outcome following weight loss surgery. Behavioral/Emotional changes reviewed. Patient does feel comfortable with changes in eating behaviors and associated emotional changes. She was reminded that psychological counseling is available through the [facility] post-operatively. The importance of vitamin supplements has been reviewed and the patient is taking the following: -Multivitamin with minerals and iron -Calcium -Vitamin B12 -Vitamin D3 -Other: Recent Nutrient Concerns and Vitamin Supplementation Changes: Pt has started back on ferrous sulfate and is increasing high K+ foods, will recheck soon Notes/Comments: Pt is doing great overall! Pt to call as needed with any issues or concerns that arise. Visit completed by: Ailyn Pollard RD documented in this encounterSTriHealth [facility] [id number] Telephone encounter Note* Telephone Encounter - Kylie Baum NP - 06/24/2022 10:52 AM EDT Orders signed. [facility] [id number] Miscellaneous Notes* Telephone Encounter - Kylie Baum NP - 06/24/2022 10:52 AM EDT Orders signed. * Telephone Encounter - Ailyn Pollard RD - 06/23/2022 11:52 AM EDT Sent pt LogFire message regarding lab results below. Pt to continue taking mvi with iron daily. Will restart 325 mg ferrous sulfate daily. Will increase high K+ foods. Will recheck K+ level in 1 week, will recheck iron levels at 3 month office visit, orders pending, please sign. Thank you so much! 06/22/22: K+ 3.0 Iron 27 Ferritin 7 H/H wnl documented in this encounterSTriHealth Bet[facility] North [id number] Telephone encounter Note* Telephone Encounter - Ailyn Pollard RD - 06/23/2022 11:52 AM EDT Sent pt LogFire message regarding lab results below. Pt to continue taking mvi with iron daily. Will restart 325 mg ferrous sulfate daily. Will increase high K+ foods. Will recheck K+ level in 1 week, will recheck iron levels at 3 month office visit, orders pending, please sign. Thank you so much! 06/22/22: K+ 3.0 Iron 27 Ferritin 7 H/H wnl [facility] [id number] History of Present illness Narrative* Jarrod Collazo MD - 06/01/2022 8:20 AM EDT Images from the original note were not included. JARROD COLLAZO MD , FACS, [facility] MINIMALLY INVASIVE & METABOLIC / BARIATRIC SURGERY [facility] MBS - 1 WEEK FOLLOW UP 06/01/2022 PATIENT: Laquita Choudhury DATE OF : 1975 HISTORY OF PRESENT ILLNESS Chief Complaint: 1 week follow-up status post laparoscopic SLEEVE GASTRECTOMY - aka SG Laquita Choudhury is a 47 y.o. female who presents to the bariatric care center today for their 1 week evaluation following bariatric surgery with Dr. Collazo. The total weight lost is 20 pounds for a 15 % EWL. Overall, the patient is experiencing a good recovery and return to normal activity. The patient is ambulating regularly and has been instructed to gradually increase physical activity. The patient isnot reporting any nausea, emesis or dysphagia with diet. The patient is starting PPI therapy. The patient is feeling well and denies any other major complaints or GI symptoms. The dietary regimen and exercise activities are going well. The patient is compliant with protein intake and vitamin/trace element supplementation. Dysphagia and eating concerns: No Dietary compliance concerns: No Exercise and activity concerns: No Compliance and phychologic concerns: No Oral thrush concerns: No Incisional problems or concerns: No VTE prophylaxis compliance concerns: No Labs were ordered for 1 month visit Review of Symptoms Constitutional: negative for chills, fevers, night sweats Respiratory: negative for cough, dyspnea on exertion, hemoptysis, and sputum Cardiovascular: negative for chest pain, chest pressure/discomfort, dyspnea, irregular heart beat, palpitations, and syncope Gastrointestinal: negative for abdominal pain, constipation, diarrhea, dysphagia, melena, reflux symptoms, and vomiting Neurological: negative for dizziness, paresthesia, seizures, and weakness PAST HISTORIES Past Medical History: Diagnosis Date Asthma Cancer ([facility]/HCC) ([facility]) June 2020 COVID-19 vaccine series completed 02/03/2021 Hx of thyroid cancer Joint pain, hip Joint pain, knee Morbid obesity due to excess calories ([facility]) 09/28/2021 Muscle weakness Postoperative hypothyroidism Pre-diabetes Seasonal allergies SOB (shortness of breath) on exertion Past Surgical History: Procedure Laterality Date ANKLE FRACTURE SURGERY 1993 [place] APPENDECTOMY 2002 [place] DILATION AND CURETTAGE OF UTERUS [id number] OVARIAN CYST REMOVAL Jamar SLEEVE GASTRECTOMY, LAPAROSCOPIC (HISTORICAL) 05/24/2022 Lap sleeve gastrectomy with liver wedge biopsy THYROIDECTOMY Bilateral 2020 Dr. Elizabeth Pineda TONSILLECTOMY (HISTORICAL) 1980 [place] Family History Problem Relation Name Age of Onset Obesity Mother Darian Diabetes Mother Darian Diabetes type II Mother Darian Cancer Maternal Grandmother Laquita No Known Allergies PHYSICAL EXAM BP 118/73 Pulse 104 Temp 36.6 C (97.9 F) Resp 16 Ht 5' 1 (1.549 m) Comment: bcc Wt 220 lb 12.8 oz (100 kg) SpO2 98% BMI 41.72 kg/m General: This patient is awake, alert, and oriented, with normal affect and is in no apparent distress. Cardiac: Regular rate and rhythm without evidence of murmur. Respiratory: Clear to auscultation bilaterally with normal effort. Abdomen: Obese, soft, non-tender, non-distended without masses/ No evidence of abdominal hernia / Incisions consistent with previous surgeries. Head and Neck: Obese, normocephalic and atraumatic/soft and supple, no lymphadenopathy or obvious bruits. No thyroidmegaly. Extremities: No cyanosis, clubbing or edema/ No calf tenderness/No restrictions of movement, is ambulatory without assistance. Neurological: Intact x 4 extremities, normal sensation, no focal deficits notes. Skin: Skin cool, warm and dry. No rashes or lesions noted. Rectal: Deferred Surgical sites: are:clean, dry, intact, and nontender Drainage from surgical site: none Patient does not have a superficial incisional SSI PATHOLOGY RESULTS: LIVER, WEDGE BIOPSY - MODERATE STEATOSIS (GRADE 2). Comment: Sections demonstrate an intact liver architecture with moderate macrovesicular steatosis occupying approximately 40% of the liver volume. There is no evidence of ballooning degeration, lobular activity, or Marissa's hyaline. The portal tracts contain all normal structures without any significant inflammatory infiltrate. Special stains (iron and trichome) are negative for increased iron storage and fibrosis, respectively. B. STOMACH, PARTIAL GASTRECTOMY - GASTRIC MUCOSA WITH MINIMAL CHRONIC INFLAMMATION AND NO OTHER SIGNIFICANT HISTOPATHOLOGIC ABNORMALITIES. Laboratory Studies: ASSESSMENT 1 week status post SLEEVE GASTRECTOMY - aka SG Visit Diagnoses: 1. Hypothyroidism, unspecified type 2. Morbid obesity with BMI of 40.0-44.9, adult (HCC) 3. Deficiency of multiple nutrient elements PLAN 1). Compliance with exercise and dietary regimen (see dietitian recommendations) 2). Patient to follow up w/ PCP for follow for management of DM and HTN medications 3). Follow up for 1 month post-operative evaluation 4). Advance diet and begin supplements per RD note Additional orders: 1 month lab-work Orders Placed This Encounter Procedures Zinc Folate Iron Ferritin Magnesium Vitamin B12 Comprehensive metabolic panel CBC ATTESTATION I personally interviewed and examined the patient. I have reviewed their past medical, surgical, medication, allergy, social and family histories. I have performed an independent physical examinationand have reviewed all pertinent laboratory and imaging results. I have reviewed with the patient myassessment of their condition as well as the treatment recommendations and the associated risks, benefits and options. I have spent a total of 30 minutes for this office visit in [id number] discussion, counseling of this patient, reviewing medical records and documenting the encounter. OD COLLAZO MD, FACS, [facility] Cinetechnician - Weight Management [place] / [facility] End Finder Twisting Department - Advanced GI MIS, Foregut and Bariatric Surgery Fellowship ---[facility]--- Patient Care Team: Chris Rosa MD as PCP - General Mary Chau, RN as Registered Nurse Jarrod Collazo MD as Surgeon (General Surgery) * Mary Taylor - 06/01/2022 8:20 AM EDT [facility] POST WEIGHT LOSS SURGERY FOLLOW UP - 1 WEEK Rooming Note Patient: Laquita Choudhury Service Date: 06/01/2022 Patient is 1 week s/p Lap Sleeve Gastrectomy Pre-Surgical Weight Loss Initial Height: 5' 1 (154.9 cm) Initial Weight: 230 lb (104 kg) Initial BMI: 43.45 [place] Body Weight: 105 lb (47.6 kg) Surgery Date: 05/24/22 Pre-Surgical Height: 5' 1 (154.9 cm) Pre-Surgical Weight: 241 lb (109 kg) Pre Surgery BMI: 45.53 Weight to Lose: 136 lb Post-Surgical Weight Loss Date: 06/01/22 Height: 5' 1 (154.9 cm) Weight: 220 lb 12.8 oz (100 kg) BMI: 41.72 Weight Change: -20.2 lbs Total Weight Change: -20.2 lbs % EBWL: 15% Comments: 1W Pain: Patient rates pain on scale 0-10 as: 2 Patient has the following questions: rtw date Patient is not diabetic If patient IS Diabetic: Patient has not spoken with the physician who prescribes their diabetic medications Patient has not resumed their diabetic medications as directed by their physician Patient advised as follows by physician prescribing diabetic medications: none Exercise Compliance: Compliance with recommended current exercise plan of walking/frequent ambulation: yes Falls Risk Assessment Patient does not take medications which affect BP or mental status Patient does not have newly prescribed or changed dosage of medications within past 30 days which affect BP or mental status Patient has not fallen in the past 2 months Patient does not demonstrate unsteady gait Patient uses the following ambulatory assistive devices: none Patient states the presence of the following traits which increases risk of fall: none Patient is low risk for falls. If high or moderate risk, patient instructed not to ambulate independently in the Center, and cord for call light placed within reach of patient. Post-op Weight Metrics: %EBWL: % EBWL: 15% Weight Change Since Last Visit: Weight Change: -20.2 lbs Weight Change from Highest Pre-op Weight: Total Weight Change: -20.2 lbs Completed by: Mary Taylor * Ailyn Pollard RD - 06/01/2022 8:20 AM EDT [facility] 1 WEEK VISIT POST-OPERATIVE DIETITIAN Date: 06/01/22 Pt is here for 1 week office visit. Pt is currently on a full liquid diet. Pt will advance to a pureed diet today and follow the diet for 10 days. Then, the pt will advance to a soft diet for 2 weeks. Both of these diets have been reviewed with the pt today. Protein requirements discussed. Patient to consume 65-75 grams daily. Fluid requirements discussed. Patient to consume 64 oz+ daily. Patient is aware that she must consume fluids 30 mintues before and after meals. Exercise activities discussed with the patient. She doeshave a plan for exercise when cleared. Patient advised that regular exercise is vital to a successful outcome following weight loss surgery. Behavioral/Emotional changes reviewed Patient does feel comfortable with changes in eating behaviors and associated emotional changes. She was reminded that psychological counseling is available through the [facility] Care Center post-operatively. The importance of vitamin supplementation has been discussed with patient. She will start the following vitamin supplements today: -Multivitamin with minerals and iron -Calcium -Vitamin B12 -Vitamin D3 -Other: Recent Nutrient Concerns and Vitamin Supplementation Changes: will start today Notes/Comments: Pt is doing great overall! Pt to call as needed with any issues or concerns that arise. Visit completed by: Ailyn Pollard RD documented in this [facility]04-05-2023 History of Present illness Narrative* Samantha Villaseñor - 05/25/2022 6:05 AM EDT Preliminary negative for leak. documented in this [place] [address]-04-2023 Miscellaneous Notes* Perioperative Nursing Note - Ebenezer White RN - 05/24/2022 5:50 PM EDT Transport here to take pt to room * Perioperative Nursing Note - Ebenezer White RN - 05/24/2022 5:30 PM EDT Pt walking to rest room with little assist, back to bed, alert and oriented at this time, denies pain at this time * Preprocedure Instructions - Ebenezer White RN - 05/24/2022 5:20 PM EDT Report to [facility] * Perioperative Nursing Note - Ebenezer White RN - 05/24/2022 2:57 PM EDT Moved pt to [address] [address] for bed delay, called lobby for pt to come back and see pt, repositionedup in bed, sitting up at this time, states pain is tolerable at this time * Perioperative Nursing Note - Tracy Medley RN - 05/24/2022 1:23 PM EDT Family updated on pt status * Op Note - Jarrod Collazo MD - 05/24/2022 9:31 AM EDT Images from the original note were not included. JARROD COLLAZO MD , FACS, [facility] MINIMALLY INVASIVE & METABOLIC / BARIATRIC SURGERY [facility] OPERATIVE REPORT 05/24/2022 PATIENT: Laquita Choudhury DATE OF : 1975 PROCEDURE: 1. LAPAROSCOPIC SLEEVE GASTRECTOMY (55752) 2. LAPAROSCOPIC LIVER WEDGE BIOPSY (71510) 3. UPPER GASTRO-INTESTINAL ENDOSCOPY (37290) SURGEON: Jarrod Collazo MD AUTO PORTER: Janette Mccormick MD PRE-OPERATIVE DIAGNOSES: BMI 46 Kg / m2 Osteoarthritis Hepatic steatosis. Morbid Obesity POST-OPERATIVE DIAGNOSES: Same ANESTHESIA: General endotracheal Transversus Abdominis plane block FLUIDS: Crystalloid ESTIMATED BLOOD LOSS: Minimal URINE OUTPUT: Not recorded PREOPERATIVE MEDICATIONS: Cefazolin 3 gm IV; Heparin 5000 units SQ INDICATIONS FOR PROCEDURE: The patient is a 46 y.o. female with morbid obesity and a BMI of There is no height or weight on file to calculate BMI.. She has completed medical risk stratification and is scheduled for Laparoscopic Sleeve Gastrectomy. CONSENT: The patient was seen and evaluated in the office setting where the details of the procedure were explained and all questions were answered to the patient's satisfaction. An informed consent discussion was held between Dr. Collazo and the patient. Viable alternatives to the proposed procedure, including but not limited to, medical observation under the care of a physician, exercise programs and other weight reductive operative procedures were discussed. Risks to the proposed procedure, including but not limited to hemorrhage requiring transfusion, infection, nerve injury, conversion to open, anastomotic disruption, anastomotic stricture, pneumonia, pulmonary embolus, airway complications, and were explained to the patient. The patient understands the above alternatives and risks, has electively chosen Laparoscopic Sleeve Gastrectomy and wishes to proceed with surgical intervention. TECHNIQUE: The patient was transported to the operating room and identified by name and number. An operating room team time out was performed confirming the identity of the patient and the planned procedure. The patient was placed on the operating room table in the supine position. General endotracheal anesthesia was administered and a transverse abdominis plane block was performed by members of the anesthesia team. An river-gastric tube was placed to decompress the stomach. Following placementof sequential compression devices, the patient was positioned in the modified lithotomy position and extremities were carefully padded and protected. The abdomen was prepped and draped in standard surgical fashion. The abdominal cavity was accessed in the left upper quadrant at Rowe's point using a 12-mm optical trocar. Pneumoperitoneum was established and a brief exploration of the abdominal cavity was performed. Three other 12-mm trocar were placed under direct visualization. One was placed at the umbilicus, one in the epigastric region, one in the right mid-abdomen. One 5-mm trocar was placed in the extreme left mid-abdomen. One 5-mm incision was made in the sub-xyphoid region for placement of the Aleida liver retractor. The Aleida liver retractor was use to retract the left lobe of the liver. We proceeded with careful removal of the river-gastric tube after decompression of the stomach was confirmed. A small peritoneal opening was created near the angle of His using hook electrocautery. We proceeded with evaluation of the greater curvature of the stomach and the lesser sac was carefully incised by dividing the short gastric vessels using the bipolar cautery device. The short gastricvessels and attachments to the greater curvature were carefully taken down in the same fashion all the way to the angle of his superior and inferiorly along the greater curvature of the stomach to alea roximately 3-4 cm from the pylorus. The posterior attachments the stomach were carefully divided using sharp scissors. At this time we proceeded with our first staple line, using a thick tissue Endo RENZO load. This was carried out towards the incisura, ensuring that ample caliber of the sleeve is preserved in order to avoid a stricture. Following this a 40 Austrian bougie was carefully advanced by the anesthesia personnel and carefully guided into the antrum. This was used to calibrate the size ofthe residual sleeve is Endo RENZO staplers were fired towards the proximal aspect of the stomach. Thelast staple load was carefully flared out laterally to avoid stapling over the distal esophagus. Once completely detached, the specimen was carefully removed through the left subcostal incision atPalmer's point which was slightly increased in size. An upper gastrointestinal endoscopy was performed along with an underwater leak test to ensure the patency of the residual sleeve all the way to the duodenum, and to ensure the integrity of the staple line. The staple line was oversewn and cauterized as needed to ensure hemostasis. As part of the pre-operative work-up , the patient underwent abdominal ultrasound on 03/11/22 which showed increased echogenicity and was concerning for diffuse hepatocellular disease. On intra-operative evaluation, the liver appeared abnormal and enlarged. At this time, a laparoscopic liver wedge biopsy was performed in order to further evaluate the parenchyma of the liver. This was performed using a laparoscopic liver biopsy instrument. The specimen was passed off the table for pathology studies. Electrocautery was utilized to achieve hemostasis of the biopsy site. At the end of the operation the Aleida liver retractor and the trocars were carefully removed under direct visualization and the pneumoperitoneum was evacuated. Fascial defect were closed using 0-Vycril suture for 10-mm or greater trocar sites and the left sub-costal specimen extraction site. The skin incisions were closed using 4-0 Vycril suture in subcuticular fashion. This was followed by steri strips and sterile dressings. The needle, sponge and instrument counts were correct. The patient tolerated the procedure and the anesthesia well without any major complications. The patients was transported to the post-anesthesiacare unit in stable condition. I was present for the entire duration of the procedure. MBSAQ - Data form Start Time: 10:03 Stop Time: 10:50 Bougie (or sizing device): 40 Austrian Distance from pylorus: 4 cm Staple Line reinforcement: [] Yes [x] No Oversew: [] Yes [x] No Fell Cutter: [x] Resident [] Fellow ASA Class: [] 1 [] 2 [x] 3 []4 [] 5 Surgical Approach: [x] Conventional laparoscopic Was the procedure converted to another approach? [] Yes [x] No Was the case aborted? [] Yes [x] No Was a drain placed at the time of the initial operation? [] Yes [x] No Was a swallow study performed the day of or the day after the procedure? [x] Yes [] No Was the anastomotic/staple line checked with a provocative test to assess for leak? [x] Yes [] No Was this a stapling procedure: [x] Yes [] No Other Procedures: [x] EGD [x] Liver Biopsy Other: None documented in this [place] [address]-04-2023 Note* Perioperative Nursing Note - Ebenezer White RN - 05/24/2022 5:50 PM EDT Transport here to take pt to room [place] [id number] Note* Perioperative Nursing Note - Ebenezer White RN - 05/24/2022 5:50 PM EDT Transport here to take pt to room [place] [id number] Note* Perioperative Nursing Note - Ebenezer White RN - 05/24/2022 5:30 PM EDT Pt walking to rest room with little assist, back to bed, alert and oriented at this time, denies pain at this time [id number] Note* Perioperative Nursing Note - Ebenezer White RN - 05/24/2022 5:30 PM EDT Pt walking to rest room with little assist, back to bed, alert and oriented at this time, denies pain at this time [id number] Note* Preprocedure Instructions - Ebenezer White RN - 05/24/2022 5:20 PM EDT Report to [facility] H[facility] [id number] Note* Preprocedure Instructions - Ebenezer White RN - 05/24/2022 5:20 PM EDT Report to Al[facility] H[facility] [id number] Note* Perioperative Nursing Note - Ebenezer White RN - 05/24/2022 2:57 PM EDT Moved pt to [facility] for bed delay, called lobby for pt to come back and see pt, repositionedup in bed, sitting up at this time, states pain is tolerable at this time [id number] Note* Perioperative Nursing Note - Ebenezer White RN - 05/24/2022 2:57 PM EDT Moved pt to [facility] for bed delay, called lobby for pt to come back and see pt, repositionedup in bed, sitting up at this time, states pain is tolerable at this time [id number] Hospital Discharge instructions* Discharge Instructions* Radha Hoffman RD - 05/24/2022 2:20 PM EDT Laparoscopic Sleeve Gastrectomy Procedure Discharge Instructions Leave the steri-strips in place (white paper tape over the incisions). They may come off on their own. Do not replace them if they come off. The stitches are buried under the skin and will dissolve on their own. Use elastic binder as you desire. Take your temperature twice a day for the first postoperative week. Call if temperature is >101 F. You may shower at any point. Blot the incisions dry when you are done. Use only soap and water on the wounds. Do not use ointments, lotions, powders or antibiotic ointment. If incisions begin to look infected (redness, swelling, drainage, pain), notify your explosives truck driver. You may be discharged home with a drain. It will be removed at your first office visit. Daily dressing changes and twice daily emptying of the grenade is required at home. Milking or stripping the tubing should be done 2-3 times daily. You will be given the supplies needed to perform these tasks. It is also important to observe the color of the drainage in the grenade. The color will currency exchange specialist time. Normal color changes include Red to [place] and [place]/Yellow to [place] and will always be clear in appearance. Abnormal color changes include a caramel color (ann and cloudy), a brown or black appearance or a color change matching the color of what you just drank (mix up your flavors). An abnormal color change requires an immediate phone call to the [facility]. Resume your home medications as directed by your surgeon and your nurse transplant case manager. Make an appointment with your prescribing physician if you are taking medication for your blood pressure or diabetes. You will need close follow-up regarding your medical conditions, as you will soon be off many of these medications. No aspirin or aspirin containing medications should be taken at all. Follow our food guidelines closely. Remember, clear liquids for the first two days after surgery. No sugar, caffeine or carbonation. Your fluid requirement is 64 oz. per day. You may advance to full liquids onpost- op day three. This is in addition to the clear liquid diet. Do not take your calcium, vitamin B12 or multivitamin with iron until after your one week appointment. No alcoholic beverages at all during the first 18 months post-op. No lifting. pushing, or pulling over 15 lbs. for one month You may go up and down stairs. No driving for 1 week after surgery. Do not drive if you are taking prescription pain medication. Walking as part of your daily activities is required immediately. Walking extensively for exercise is not permitted until you are cleared by your surgeon (usually 4-6 weeks after surgery). You will be able to begin exercising in 4-6 weeks, but must be cleared by your surgeon at your one month appointment. Use your incentive spirometer from the hospital for the first postoperative week as instructed. Useit 10 times every other hour while awake. Prior to returning to work, you will be seen, evaluated and cleared by your surgeon. Remember, you will have pain. Take your pain medicine so that you are comfortable enough to cough, deep breathe and walk. Fatigue is quite common in the first postoperative week. Rest appropriately in response to this fatigue. Remember that mobility after surgery is very important. You must not remain in a sitting or recumbent position for long periods of time. If you have obstructive sleep apnea and have been prescribed a CPAP machine, you must continue to use this device after surgery. Please call the [facility] at [phone] if you have any questions or concerns during business hours: Monday through Monday 8 a.m. to 4:30 p.m. The answering service may be called during non- business hours at [phone]. Call your surgeon for problems, or if you have any of the following: Temperature >101 F. (Take your temperature twice a day in the morning and evening until your first office visit) Redness, pain, swelling or drainage from any of the incisions Inability to pass urine or have bowel movements ANY shortness of breath, chest pain, leg swelling or leg pain (in one or both of your legs) Rapid heart rate Nausea and/or vomiting with inability to keep liquids down Bleeding from your rectum Frequently feeling dizzy or light-headed, inability to walk Abnormal drain color appearance 23. If you have a medical emergency, call 911 or go to the closest hospital emergency room. 24. Your one week and one month follow-up office visits with your surgeon at the [facility] are located in the discharge folder. [facility] DIETITIAN DISCHARGE INSTRUCTIONS The following information was reviewed with the patient, and the patient was given a hard copy of these instructions by the Bariatric Registered Dietitian. Overview of Post-Op Diet Protocol for Patients Following Gastric Bypass or Sleeve Gastrectomy Your dietitian will meet with you in the hospital before you are discharged to review the diet in more details and to answer any questions you may have, Day of Surgery (after you wake up from surgery) Nothing to eat or drink Post-op Day 1 If you are having an UGI xray, you will begin your clear liquids after you are notified that the results are back and you are cleared to begin If you are NOT having an UGI xray, you will begin your clear liquids as soon as your nurse notifiesyou that it is OK to start. Post-Op Day 2 Continue your bariatric clear liquid diet Post-op Day 3 Begin full liquid diet and continue until after your 1 week post-op visit You will continue to follow the full liquid diet until after you meet with your dietitian during your 1 week post-op office visit. The next diet phases will be reviewed and discussed with your duringthat visit, If you have questions about your diet(s), please contact the Bariatric Dietitians at [phone]. [facility] DISCHARGE INSTRUCTIONS The following information was reviewed with the patient, and the patient was given a hard copy of these instructions by the Bariatric Registered Dietitian. Bariatric Dietitian Discharge instructions Please follow these instructions until your 1 week office visit General Guidelines: 1. Divide food into three (3) small meals 2. Eat the food very slowly, using smaller size utensils. If you feel full, STOP eating. 3. Drink liquids 30 minutes before or 30 minutes after meals and snacks. 4.Do not use a straw. 5. Start tracking your protein intake - 65-75 grams daily should be your total. Foods Allowed In addition to all foods permitted on the clear liequid diet, you may have: 1.Diluted fruit juices that are pulp-free. 2. Low-fat, strained cream soups. 3. Sugar-free strained creamed soups 4. Sugar-free pudding with protein powder 5. Sugar substitutes 6. Thin cooked cereals 7. Low-sugar yogurt without fruit 8. Skim milk or 1% milk 9. Lactaid, soy or almond milk 10. Low-fat or nonfat cottage cheese (mashed with a fork and then chewed thoroughly before swallowing) 11. Protein powder 12. High protein, low-sugar beverages and shakes (see list in Patient Education Manual) Radha Hoffman MS, RDN, LD documented in this [facility]04-04-2023 Note* Perioperative Nursing Note - Tracy Medley RN - 05/24/2022 1:23 PM EDT Family updated on pt status [id number]* Perioperative Nursing Note - Tracy Medley RN - 05/24/2022 1:23 PM EDT Family updated on pt status [id number]* Op Note - Jarrod Collazo MD - 05/24/2022 9:31 AM EDT Images from the original note were not included. JARROD COLLAZO MD , FACS, [facility] MINIMALLY INVASIVE & METABOLIC / BARIATRIC SURGERY [facility] OPERATIVE REPORT 05/24/2022 PATIENT: Laquita Choudhury DATE OF : 1975 PROCEDURE: 1. LAPAROSCOPIC SLEEVE GASTRECTOMY (74501) 2. LAPAROSCOPIC LIVER WEDGE BIOPSY (83919) 3. UPPER GASTRO-INTESTINAL ENDOSCOPY (11866) SURGEON: Jarrod Collazo MD AUTO PORTER: Janette Mccormick MD PRE-OPERATIVE DIAGNOSES: BMI 46 Kg / m2 Osteoarthritis Hepatic steatosis. Morbid Obesity POST-OPERATIVE DIAGNOSES: Same ANESTHESIA: General endotracheal Transversus Abdominis plane block FLUIDS: Crystalloid ESTIMATED BLOOD LOSS: Minimal URINE OUTPUT: Not recorded PREOPERATIVE MEDICATIONS: Cefazolin 3 gm IV; Heparin 5000 units SQ INDICATIONS FOR PROCEDURE: The patient is a 46 y.o. female with morbid obesity and a BMI of There is no height or weight on file to calculate BMI.. She has completed medical risk stratification and is scheduled for Laparoscopic Sleeve Gastrectomy. CONSENT: The patient was seen and evaluated in the office setting where the details of the procedure were explained and all questions were answered to the patient's satisfaction. An informed consent discussion was held between Dr. Collazo and the patient. Viable alternatives to the proposed procedure, including but not limited to, medical observation under the care of a physician, exercise programs and other weight reductive operative procedures were discussed. Risks to the proposed procedure, including but not limited to hemorrhage requiring transfusion, infection, nerve injury, conversion to open, anastomotic disruption, anastomotic stricture, pneumonia, pulmonary embolus, airway complications, and were explained to the patient. The patient understands the above alternatives and risks, has electively chosen Laparoscopic Sleeve Gastrectomy and wishes to proceed with surgical intervention. TECHNIQUE: The patient was transported to the operating room and identified by name and number. An operating room team time out was performed confirming the identity of the patient and the planned procedure. The patient was placed on the operating room table in the supine position. General endotracheal anesthesia was administered and a transverse abdominis plane block was performed by members of the anesthesia team. An river-gastric tube was placed to decompress the stomach. Following placementof sequential compression devices, the patient was positioned in the modified lithotomy position and extremities were carefully padded and protected. The abdomen was prepped and draped in standard surgical fashion. The abdominal cavity was accessed in the left upper quadrant at Rowe's point using a 12-mm optical trocar. Pneumoperitoneum was established and a brief exploration of the abdominal cavity was performed. Three other 12-mm trocar were placed under direct visualization. One was placed at the umbilicus, one in the epigastric region, one in the right mid-abdomen. One 5-mm trocar was placed in the extreme left mid-abdomen. One 5-mm incision was made in the sub-xyphoid region for placement of the Aleida liver retractor. The Aleida liver retractor was use to retract the left lobe of the liver. We proceeded with careful removal of the river-gastric tube after decompression of the stomach was confirmed. A small peritoneal opening was created near the angle of His using hook electrocautery. We proceeded with evaluation of the greater curvature of the stomach and the lesser sac was carefully incised by dividing the short gastric vessels using the bipolar cautery device. The short gastricvessels and attachments to the greater curvature were carefully taken down in the same fashion all the way to the angle of his superior and inferiorly along the greater curvature of the stomach to approximately 3-4 cm from the pylorus. The posterior attachments the stomach were carefully divided using sharp scissors. At this time we proceeded with our first staple line, using a thick tissue Endo RENZO load. This was carried out towards the incisura, ensuring that ample caliber of the sleeve is preserved in order to avoid a stricture. Following this a 40 Austrian bougie was carefully advanced by the anesthesia personnel and carefully guided into the antrum. This was used to calibrate the size ofthe residual sleeve is Endo RENZO staplers were fired towards the proximal aspect of the stomach. Thelast staple load was carefully flared out laterally to avoid stapling over the distal esophagus. Once completely detached, the specimen was carefully removed through the left subcostal incision atPalmer's point which was slightly increased in size. An upper gastrointestinal endoscopy was performed along with an underwater leak test to ensure the patency of the residual sleeve all the way to the duodenum, and to ensure the integrity of the staple line. The staple line was oversewn and cauterized as needed to ensure hemostasis. As part of the pre-operative work-up , the patient underwent abdominal ultrasound on 03/11/22 which showed increased echogenicity and was concerning for diffuse hepatocellular disease. On intra-operative evaluation, the liver appeared abnormal and enlarged. At this time, a laparoscopic liver wedge biopsy was performed in order to further evaluate the parenchyma of the liver. This was performed using a laparoscopic liver biopsy instrument. The specimen was passed off the table for pathology studies. Electrocautery was utilized to achieve hemostasis of the biopsy site. At the end of the operation the Aleida liver retractor and the trocars were carefully removed under direct visualization and the pneumoperitoneum was evacuated. Fascial defect were closed using 0-Vycril suture for 10-mm or greater trocar sites and the left sub-costal specimen extraction site. The skin incisions were closed using 4-0 Vycril suture in subcuticular fashion. This was followed by steri strips and sterile dressings. The needle, sponge and instrument counts were correct. The patient tolerated the procedure and the anesthesia well without any major complications. The patients was transported to the post-anesthesiacare unit in stable condition. I was present for the entire duration of the procedure. [facility] - Data form Start Time: 10:03 Stop Time: 10:50 Bougie (or sizing device): 40 Austrian Distance from pylorus: 4 cm Staple Line reinforcement: [] Yes [x] No Oversew: [] Yes [x] No Fell Cutter: [x] Resident [] Fellow ASA Class: [] 1 [] 2 [x] 3 []4 [] 5 Surgical Approach: [x] Conventional laparoscopic Was the procedure converted to another approach? [] Yes [x] No Was the case aborted? [] Yes [x] No Was a drain placed at the time of the initial operation? [] Yes [x] No Was a swallow study performed the day of or the day after the procedure? [x] Yes [] No Was the anastomotic/staple line checked with a provocative test to assess for leak? [x] Yes [] No Was this a stapling procedure: [x] Yes [] No Other Procedures: [x] EGD [x] Liver Biopsy Other: None [id number] Note* Op Note - Jarrod Collazo MD - 05/24/2022 9:31 AM EDT Images from the original note were not included. JARROD COLLAZO MD , FACS, [facility] MINIMALLY INVASIVE & METABOLIC / BARIATRIC SURGERY [facility] OPERATIVE REPORT 05/24/2022 PATIENT: Laquita Choudhury DATE OF : 1975 PROCEDURE: 1. LAPAROSCOPIC SLEEVE GASTRECTOMY (23178) 2. LAPAROSCOPIC LIVER WEDGE BIOPSY (90539) 3. UPPER GASTRO-INTESTINAL ENDOSCOPY (35023) SURGEON: Jarrod Collazo MD AUTO PORTER: Janette Mccormick MD PRE-OPERATIVE DIAGNOSES: BMI 46 Kg / m2 Osteoarthritis Hepatic steatosis. Morbid Obesity POST-OPERATIVE DIAGNOSES: Same ANESTHESIA: General endotracheal Transversus Abdominis plane block FLUIDS: Crystalloid ESTIMATED BLOOD LOSS: Minimal URINE OUTPUT: Not recorded PREOPERATIVE MEDICATIONS: Cefazolin 3 gm IV; Heparin 5000 units SQ INDICATIONS FOR PROCEDURE: The patient is a 46 y.o. female with morbid obesity and a BMI of There is no height or weight on file to calculate BMI.. She has completed medical risk stratification and is scheduled for Laparoscopic Sleeve Gastrectomy. CONSENT: The patient was seen and evaluated in the office setting where the details of the procedure were explained and all questions were answered to the patient's satisfaction. An informed consent discussion was held between Dr. Collazo and the patient. Viable alternatives to the proposed procedure, including but not limited to, medical observation under the care of a physician, exercise programs and other weight reductive operative procedures were discussed. Risks to the proposed procedure, including but not limited to hemorrhage requiring transfusion, infection, nerve injury, conversion to open, anastomotic disruption, anastomotic stricture, pneumonia, pulmonary embolus, airway complications, and were explained to the patient. The patient understands the above alternatives and risks, has electively chosen Laparoscopic Sleeve Gastrectomy and wishes to proceed with surgical intervention. TECHNIQUE: The patient was transported to the operating room and identified by name and number. An operating room team time out was performed confirming the identity of the patient and the planned procedure. The patient was placed on the operating room table in the supine position. General endotracheal anesthesia was administered and a transverse abdominis plane block was performed by members of the anesthesia team. An river-gastric tube was placed to decompress the stomach. Following placementof sequential compression devices, the patient was positioned in the modified lithotomy position and extremities were carefully padded and protected. The abdomen was prepped and draped in standard surgical fashion. The abdominal cavity was accessed in the left upper quadrant at Rowe's point using a 12-mm optical trocar. Pneumoperitoneum was established and a brief exploration of the abdominal cavity was performed. Three other 12-mm trocar were placed under direct visualization. One was placed at the umbilicus, one in the epigastric region, one in the right mid-abdomen. One 5-mm trocar was placed in the extreme left mid-abdomen. One 5-mm incision was made in the sub-xyphoid region for placement of the Aleida liver retractor. The Aleida liver retractor was use to retract the left lobe of the liver. We proceeded with careful removal of the river-gastric tube after decompression of the stomach was confirmed. A small peritoneal opening was created near the angle of His using hook electrocautery. We proceeded with evaluation of the greater curvature of the stomach and the lesser sac was carefully incised by dividing the short gastric vessels using the bipolar cautery device. The short gastricvessels and attachments to the greater curvature were carefully taken down in the same fashion all the way to the angle of his superior and inferiorly along the greater curvature of the stomach to approximately 3-4 cm from the pylorus. The posterior attachments the stomach were carefully divided using sharp scissors. At this time we proceeded with our first staple line, using a thick tissue Endo RENZO load. This was carried out towards the incisura, ensuring that ample caliber of the sleeve is preserved in order to avoid a stricture. Following this a 40 Austrian bougie was carefully advanced by the anesthesia personnel and carefully guided into the antrum. This was used to calibrate the size ofthe residual sleeve is Endo RENZO staplers were fired towards the proximal aspect of the stomach. Thelast staple load was carefully flared out laterally to avoid stapling over the distal esophagus. Once completely detached, the specimen was carefully removed through the left subcostal incision atPalmer's point which was slightly increased in size. An upper gastrointestinal endoscopy was performed along with an underwater leak test to ensure the patency of the residual sleeve all the way to the duodenum, and to ensure the integrity of the staple line. The staple line was oversewn and cauterized as needed to ensure hemostasis. As part of the pre-operative work-up , the patient underwent abdominal ultrasound on 03/11/22 which showed increased echogenicity and was concerning for diffuse hepatocellular disease. On intra-operative evaluation, the liver appeared abnormal and enlarged. At this time, a laparoscopic liver wedge biopsy was performed in order to further evaluate the parenchyma of the liver. This was performed using a laparoscopic liver biopsy instrument. The specimen was passed off the table for pathology studies. Electrocautery was utilized to achieve hemostasis of the biopsy site. At the end of the operation the Aleida liver retractor and the trocars were carefully removed under direct visualization and the pneumoperitoneum was evacuated. Fascial defect were closed using 0-Vycril suture for 10-mm or greater trocar sites and the left sub-costal specimen extraction site. The skin incisions were closed using 4-0 Vycril suture in subcuticular fashion. This was followed by steri strips and sterile dressings. The needle, sponge and instrument counts were correct. The patient tolerated the procedure and the anesthesia well without any major complications. The patients was transported to the post-anesthesiacare unit in stable condition. I was present for the entire duration of the procedure. [facility] - Data form Start Time: 10:03 Stop Time: 10:50 Bougie (or sizing device): 40 Austrian Distance from pylorus: 4 cm Staple Line reinforcement: [] Yes [x] No Oversew: [] Yes [x] No Fell Cutter: [x] Resident [] Fellow ASA Class: [] 1 [] 2 [x] 3 []4 [] 5 Surgical Approach: [x] Conventional laparoscopic Was the procedure converted to another approach? [] Yes [x] No Was the case aborted? [] Yes [x] No Was a drain placed at the time of the initial operation? [] Yes [x] No Was a swallow study performed the day of or the day after the procedure? [x] Yes [] No Was the anastomotic/staple line checked with a provocative test to assess for leak? [x] Yes [] No Was this a stapling procedure: [x] Yes [] No Other Procedures: [x] EGD [x] Liver Biopsy Other: None [id number] Attending History and physical note* Jarrod Collazo MD - 05/24/2022 9:19 AM EDT H&P Interval Update PATIENT SUMMARY Laquita Choudhury Dr. Collazo 46 y.o. 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 The patient was seen and examined. There has been no change in the management plan. Source Note - Georgette Figueredo APRN - HANDLE ASSEMBLER - 05/17/2022 4:30 PM EDT Comprehensive PreSurgical History and Physical ? Name: Laquita Choudhury : 1975 (Age-46 y.o.) Date of Service: Pt seen/examined on 05/17/2022 Procedure Information Date/Time: 05/24/22 1000 Procedures: LAPAROSCOPIC SLEEVE GASTRECTOMY WITH LIVER WEDGE BIOPSY , HIATAL HERNIA REPAIR , POSSOIBLE OPEN (Abdomen) UNLISTED LAPAROSCOPIC PROCEDURE LIVER (Abdomen) Location: [facility] OR Operating Room Surgeons: Jarrod Collazo MD Chief Complaint: Morbid (severe) obesity due to excess calories History Of Present Illness: 46 y.o. female who we are asked to see/evaluate by Dr. Collazo for pre-operative evaluation prior to above procedure. ? Denies history of PR, CAD, CHF, TIA, CVA Past Medical History: Past Medical History: No date: Asthma June 2020: Cancer (CMS/HCC) (HCC) 02/03/2021: COVID-19 vaccine series completed No date: Hx of thyroid cancer No date: Joint pain, hip No date: Joint pain, knee 09/28/2021: Morbid obesity due to excess calories (HCC) No date: Muscle weakness No date: Postoperative hypothyroidism No date: Pre-diabetes No date: Seasonal allergies No date: SOB (shortness of breath) on exertion Past Surgical History: Past Surgical History: 1993: ANKLE FRACTURE SURGERY Comment: Jimenez 2001: APPENDECTOMY Comment: Edwin No date: DILATION AND CURETTAGE OF UTERUS Comment: - X4 No date: OVARIAN CYST REMOVAL Comment: Jamar 2020: THYROIDECTOMY; Bilateral Comment: Dr. Elizabeth Pineda 1980: TONSILLECTOMY (HISTORICAL) Comment: Jimenez Medications Prior to Admission: Prior to Admission medications Medication Sig Start Date End Date Taking? Authorizing Provider albuterol 108 (90 Base) MCG/ACT inhaler Inhale 2 puffs every 4 hours as needed. 01/28/16 Historical Provider, cholecalciferol (D3-5) 5,000 Units tablet Take 1 tablet by mouth in the morning. Historical Provider, DULoxetine (Cymbalta) [address] capsule Take 60 mg by mouth in the morning. 09/30/21 Historical Provider, ferrous sulfate 325 (65 Fe) MG tablet Take 325 mg by mouth daily (with breakfast). Historical Provider, levothyroxine (Synthroid, Levoxyl) 150 MCG tablet Take 150 mcg by mouth. 09/22/21 Historical Provider, Multiple Vitamin (Multi-Vitamin) tablet Take 1 tablet by mouth in the morning. 06/08/10 Historical Provider, omeprazole (PriLOSEC) [address] capsule Take 1 capsule (20 mg) by mouth daily. Do not crush or chew.05/04/22 Kylie Baum NP ursodiol (Actigall) 300 MG capsule Take 1 capsule (300 mg) by mouth 2 times daily. 05/04/22 08/02/22 Kylie Baum NP CHRONIC NARCOTIC USE: No Allergies: Patient has no known allergies. Can the patient take acetaminophen: Yes Social History: TOBACCO: reports that she has never smoked. She has never used smokeless tobacco. ETOH: reports current alcohol use of about 1.0 standard drink per week. Social History Substance and Sexual Activity Drug Use Never Family History: Family History Problem Relation Name Age of Onset Obesity Mother Darian Diabetes Mother Darian Diabetes type II Mother Darian Cancer Maternal Grandmother Laquita REVIEW OF SYSTEMS: Review of Systems Constitutional: Negative for chills and fever. HENT: Negative for trouble swallowing. Respiratory: Negative for cough and shortness of breath. Cardiovascular: Negative for chest pain and leg swelling. Gastrointestinal: Negative for abdominal pain, nausea and vomiting. Skin: Negative for rash. Neurological: Negative for seizures and weakness. Physical Exam: Physical Exam Constitutional: Appearance: Normal appearance. HENT: Head: Normocephalic and atraumatic. Mouth/Throat: Mouth: Mucous membranes are moist. Pharynx: Oropharynx is clear. Eyes: Pupils: Pupils are equal, round, and reactive to light. Cardiovascular: Rate and Rhythm: Normal rate. Pulses: Normal pulses. Pulmonary: Effort: Pulmonary effort is normal. Abdominal: General: Bowel sounds are normal. Musculoskeletal: General: Normal range of motion. Cervical back: Normal range of motion. Skin: General: Skin is warm and dry. Capillary Refill: Capillary refill takes less than 2 seconds. Neurological: General: No focal deficit present. Mental Status: She is alert and oriented to person, place, and time. Psychiatric: Behavior: Behavior normal. Vitals: Vitals Value Taken Time BP 139/88 05/17/22 1637 Temp 36.1 C (97 F) 05/17/22 1637 Pulse 105 05/17/22 1637 Resp 18 05/17/22 1634 SpO2 95 % 05/17/22 1637 Labs: Lab Results Component Value Date WBC 5.2 05/04/2022 HGB 11.1 (L) 05/04/2022 HCT 34.2 (L) 05/04/2022 MCV 87.7 05/04/2022 PLT 256 05/04/2022 Lab Results Component Value Date NA 141 05/04/2022 K 4.3 05/04/2022 CL 106 05/04/2022 CO2 28 05/04/2022 BUN 17 05/04/2022 CREATININE 0.70 05/04/2022 GLUCOSE 102 (H) 05/04/2022 CALCIUM 8.7 05/04/2022 EGFR >90.0 05/04/2022 Mamadou's Simple Cardiac Risk Index: MAMADOU'S SIMPLE CARDIAC RISK SCORE: 0 Interpretation: 0 Points Class I 0.5% 1 Point Class II 1.3% 2 Points Class III 3.6% 3+ Points Class IV 9.1% METS >4 METS (Able to climb a flight of stairs with no chest pain or shortness of breath): Yes PAT Pain Score: Postop Pain Management Plan (Pain consult ordered?): Pain consult not indicated at this time ? EKG: completed prior to PAT- NSR 05/04/22 ECHO and EF:None on file No components found for: LVEF, LVEFMODE ASSESSMENT/PLAN: Patient is considered low/intermediate risk for this intermediate risk procedure/surgery () with noreducible risk factors. Based on the above evaluation, the benefits of the planned procedure likelyexceed the risks. The patient is medically optimized to proceed with the planned procedure without any further cardiopulmonary testing. 1) Morbid (severe) obesity due to excess calories - Managed per surgery 2) Depression Cymbalta 3) Asthma (allergies) Albuterol -rare use 4) Hypothyroidism Synthroid 150mcg Visit Type: Pre-Admission Testing Visit Labs Ordered: NO - COMPLETE PRIOR TO PAT VISIT Sleep Referral Ordered: NO - NEGATIVE SCREEN PER SLEEP REFERRAL PROTOCOL Electronically signed by: LISSET Simms CNP Date: 05/17/2022 at 4:53 PM PAT Protocol referenced includes: 1. Anesthesia Lab Protocol Orders 2. Perioperative Cardiovascular Risk Assessment 3. Anesthesia Assessment 4. Pain Assessment and Acute Pain Service Consult (if appropriate) 5. Medical Clearance/Consult from Internal Medicine (IMS) 6. Shower/Wash Order (for designated surgeries) 7. BO Screen and Sleep Clinic Referral (if appropriate) [id number] History and physical note* Jarrod Collazo MD - 05/24/2022 9:19 AM EDT H&P Interval Update PATIENT SUMMARY Laquita Choudhury Dr. Collazo 46 y.o. 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 The patient was seen and examined. There has been no change in the management plan. Source Note - Georgette Figueredo, BULK TRUCK DRIVER - HANDLE ASSEMBLER - 05/17/2022 4:30 PM EDT Comprehensive PreSurgical History and Physical ? Name: Laquita Choudhury : 1975 (Age-46 y.o.) Date of Service: Pt seen/examined on 05/17/2022 Procedure Information Date/Time: 05/24/22 1000 Procedures: LAPAROSCOPIC SLEEVE GASTRECTOMY WITH LIVER WEDGE BIOPSY , HIATAL HERNIA REPAIR , POSSOIBLE OPEN (Abdomen) UNLISTED LAPAROSCOPIC PROCEDURE LIVER (Abdomen) Location: [facility] OR Operating Room Surgeons: Jarrod Collazo MD Chief Complaint: Morbid (severe) obesity due to excess calories History Of Present Illness: 46 y.o. female who we are asked to see/evaluate by Dr. Collazo for pre-operative evaluation prior to above procedure. ? Denies history of PR, CAD, CHF, TIA, CVA Past Medical History: Past Medical History: No date: Asthma June 2020: Cancer (CMS/HCC) (HCC) 02/03/2021: COVID-19 vaccine series completed No date: Hx of thyroid cancer No date: Joint pain, hip No date: Joint pain, knee 09/28/2021: Morbid obesity due to excess calories (HCC) No date: Muscle weakness No date: Postoperative hypothyroidism No date: Pre-diabetes No date: Seasonal allergies No date: SOB (shortness of breath) on exertion Past Surgical History: Past Surgical History: 1993: ANKLE FRACTURE SURGERY Comment: Jimenez 2001: APPENDECTOMY Comment: Edwin No date: DILATION AND CURETTAGE OF UTERUS Comment: 4 No date: OVARIAN CYST REMOVAL Comment: Jamar 2020: THYROIDECTOMY; Bilateral Comment: Dr. Elizabeth Pineda 1980: TONSILLECTOMY (HISTORICAL) Comment: Jimenez Medications Prior to Admission: Prior to Admission medications Medication Sig Start Date End Date Taking? Authorizing Provider albuterol 108 (90 Base) MCG/ACT inhaler Inhale 2 puffs every 4 hours as needed. 01/28/16 Historical Provider, cholecalciferol (D3-5) 5,000 Units tablet Take 1 tablet by mouth in the morning. Historical Provider, DULoxetine (Cymbalta) [address] capsule Take 60 mg by mouth in the morning. 09/30/21 Historical Provider, ferrous sulfate 325 (65 Fe) MG tablet Take 325 mg by mouth daily (with breakfast). Historical Provider, levothyroxine (Synthroid, Levoxyl) 150 MCG tablet Take 150 mcg by mouth. 09/22/21 Historical Provider, Multiple Vitamin (Multi-Vitamin) tablet Take 1 tablet by mouth in the morning. 06/08/10 Historical Provider, omeprazole (PriLOSEC) [address] capsule Take 1 capsule (20 mg) by mouth daily. Do not crush or chew.05/04/22 Kylie Baum NP ursodiol (Actigall) 300 MG capsule Take 1 capsule (300 mg) by mouth 2 times daily. 05/04/22 08/02/22 Kylie Baum NP CHRONIC NARCOTIC USE: No Allergies: Patient has no known allergies. Can the patient take acetaminophen: Yes Social History: TOBACCO: reports that she has never smoked. She has never used smokeless tobacco. ETOH: reports current alcohol use of about 1.0 standard drink per week. Social History Substance and Sexual Activity Drug Use Never Family History: Family History Problem Relation Name Age of Onset Obesity Mother Darian Diabetes Mother Darian Diabetes type II Mother Darian Cancer Maternal Grandmother Laquita REVIEW OF SYSTEMS: Review of Systems Constitutional: Negative for chills and fever. HENT: Negative for trouble swallowing. Respiratory: Negative for cough and shortness of breath. Cardiovascular: Negative for chest pain and leg swelling. Gastrointestinal: Negative for abdominal pain, nausea and vomiting. Skin: Negative for rash. Neurological: Negative for seizures and weakness. Physical Exam: Physical Exam Constitutional: Appearance: Normal appearance. HENT: Head: Normocephalic and atraumatic. Mouth/Throat: Mouth: Mucous membranes are moist. Pharynx: Oropharynx is clear. Eyes: Pupils: Pupils are equal, round, and reactive to light. Cardiovascular: Rate and Rhythm: Normal rate. Pulses: Normal pulses. Pulmonary: Effort: Pulmonary effort is normal. Abdominal: General: Bowel sounds are normal. Musculoskeletal: General: Normal range of motion. Cervical back: Normal range of motion. Skin: General: Skin is warm and dry. Capillary Refill: Capillary refill takes less than 2 seconds. Neurological: General: No focal deficit present. Mental Status: She is alert and oriented to person, place, and time. Psychiatric: Behavior: Behavior normal. Vitals: Vitals Value Taken Time BP 139/88 05/17/22 1637 Temp 36.1 C (97 F) 05/17/22 1637 Pulse 105 05/17/22 1637 Resp 18 05/17/22 1634 SpO2 95 % 05/17/22 1637 Labs: Lab Results Component Value Date WBC 5.2 05/04/2022 HGB 11.1 (L) 05/04/2022 HCT 34.2 (L) 05/04/2022 MCV 87.7 05/04/2022 PLT 256 05/04/2022 Lab Results Component Value Date NA 141 05/04/2022 K 4.3 05/04/2022 CL 106 05/04/2022 CO2 28 05/04/2022 BUN 17 05/04/2022 CREATININE 0.70 05/04/2022 GLUCOSE 102 (H) 05/04/2022 CALCIUM 8.7 05/04/2022 EGFR >90.0 05/04/2022 Mamadou's Simple Cardiac Risk Index: MAMADOU'S SIMPLE CARDIAC RISK SCORE: 0 Interpretation: 0 Points Class I 0.5% 1 Point Class II 1.3% 2 Points Class III 3.6% 3+ Points Class IV 9.1% METS >4 METS (Able to climb a flight of stairs with no chest pain or shortness of breath): Yes PAT Pain Score: Postop Pain Management Plan (Pain consult ordered?): Pain consult not indicated at this time ? EKG: completed prior to PAT- NSR 05/04/22 ECHO and EF:None on file No components found for: LVEF, LVEFMODE ASSESSMENT/PLAN: Patient is considered low/intermediate risk for this intermediate risk procedure/surgery () with noreducible risk factors. Based on the above evaluation, the benefits of the planned procedure likelyexceed the risks. The patient is medically optimized to proceed with the planned procedure without any further cardiopulmonary testing. 1) Morbid (severe) obesity due to excess calories - Managed per surgery 2) Depression Cymbalta 3) Asthma (allergies) Albuterol -rare use 4) Hypothyroidism Synthroid 150mcg Visit Type: Pre-Admission Testing Visit Labs Ordered: NO - COMPLETE PRIOR TO PAT VISIT Sleep Referral Ordered: NO - NEGATIVE SCREEN PER SLEEP REFERRAL PROTOCOL Electronically signed by: LISSET Simms CNP Date: 05/17/2022 at 4:53 PM PAT Protocol referenced includes: 1. Anesthesia Lab Protocol Orders 2. Perioperative Cardiovascular Risk Assessment 3. Anesthesia Assessment 4. Pain Assessment and Acute Pain Service Consult (if appropriate) 5. Medical Clearance/Consult from Internal Medicine (IMS) 6. Shower/Wash Order (for designated surgeries) 7. BO Screen and Sleep Clinic Referral (if appropriate) documented in this [facility]03-16-2023 Telephone encounter Note* Telephone Encounter - LISSET Reveles CNP - 05/05/2022 12:41 PM EDT Noted, no lovenox. [facility] Phone: [phone] Miscellaneous Notes* Telephone Encounter - LISSET Reveles CNP - 05/05/2022 12:41 PM EDT Noted, no lovenox. * Telephone Encounter - Tori Newton RN - 05/02/2022 1:43 PM EDT No lovenox DVT Ppx [x] DVT prophylaxis per final preop visit estimated risk Estimated calculated risk: 0.16 % DVT PPX Risk Factors [] Male [] Age >= 60 years [] BMI >= 50 kg/m^2 [] CHF [] Dyspnea at Rest [] Paraplegia [x] Non-Gastric Band Surgery [] Anticipate Operative Time > 3 hours [] Anticipate Length of Stay >3 days Automatic 4 Weeks of Therapy [] Congenital or Acquired Hypercoagulable Conditions (Factor V Leiden, Prothrombin) [] Past History of DVT or PE [] Significant Chronic Venous Insufficiency Calculated Risk Score: The predicted probability of thirty-day post-discharge VTE 0.16 % Risk % Weeks </> BMI 50 SQ Dose [x] Moderate <0.4% 0 None [] High Risk 0.4% - 1% 2 [] 40 mg Lovenox BID [] 60 mg Lovenox BID [] Very High Risk >1% 4 [] 40 mg Lovenox BID [] 60 mg Lovenox BID documented in this [facility]03-15-2023 History of Present illness Narrative* Jarrod Collazo MD - 05/04/2022 10:45 AM EDT Images from the original note were not included. JARROD COLLAZO MD , FACS, [facility] MINIMALLY INVASIVE & METABOLIC / BARIATRIC SURGERY [facility] [place]IS[place] 05/04/2022 PATIENT: Laquita Choudhury DATE OF : 1975 HISTORY OF PRESENT ILLNESS Chief Complaint: Morbid Obesity and here for final preoperative evaluation, informed consent and discussion of work-up results. Laquita Choudhury is a 46 y.o. female with morbid obesity and associated comorbid conditions who [facility] for final pre-operative evaluation and for discussion of the preoperative testing results. A discussion of the risks, benefits and options of the planned procedure was also held and all questions were answered to the patient's satisfaction. The patient stands Height: 5'1 (154.9 cm) tall with a weight of Weight: 241 lb (109 kg) , and has a BMI of Body mass index is 45.54 kg/m .. PATIENT SUMMARY Laquita Choudhury Dr. Collazo 46 y.o. 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 Ok TO PROCEED as RELATES TO LOW TSH. Tobacco [x] Serum Nicotine / Cotinine 03/17/22 [x] Negative [] Positive EGD [x] Dx: [] GERD [x] Dyspepsia [] Other Hiatal Hernia Sliding. Thickened fundus (biopsied) (AD 03/18/22) Pathology [x] H. pylori [x] Negative [] Positive UGI [x] [] not ordered 03/23/22-no HH US Abdomen [x] [] not ordered 03/2022 cholelithiasis BO eval [x] [] On CPAP / Obtain settings Did with Dr. Castellon- trial CPAP was not effective. AHI was 4.4 Hematology [] [] Hypercoagulation panel Toxicology [] [] Urine drug screen [] EtOH screen Addtional [] [] Hgb A1c INITIAL CONSULTATIONS CLEARANCE / MANAGEMENT Psychology [x] Dr. Whelan Reviewed Cleared by Bijal Teague PsyD 03.31.2022 Dietitian [x] Hetal Padgett RD, LD 11/03/21 Cleared Cardiology [x] [] not ordered ISADA CLEARED 03/28/22 Pulmonary [] [x] not ordered Others [] []Heme/Onc []Psychiatry []Pain mgmt PSD [] Physician supervised diet: []None [x]3 mos []6 mos Preop diet [] Preop low calory diet: [x]None []1 wk []2 wks []Ext. FINAL PRE-OP TESTING RESULTS Labwork [x] [x]Pre-op CBC [x]BMP []Serum Nicotine / Cotinine EKG [x] CXR [x] POST-OP MEDICATIONS Ulcer Ppx [x] Omeprazole 20 mg PO [x]QD []BID Gallstone Ppx [x] Ursodiol 300 mg [x]BID DVT Ppx [x] DVT prophylaxis per final preop visit estimated risk Estimated calculated risk: 0.16 % DVT PPX Risk Factors [] Male [] Age >= 60 years [] BMI >= 50 kg/m^2 [] CHF [] Dyspnea at Rest [] Paraplegia [x] Non-Gastric Band Surgery [] Anticipate Operative Time > 3 hours [] Anticipate Length of Stay >3 days Automatic 4 Weeks of Therapy [] Congenital or Acquired Hypercoagulable Conditions (Factor V Leiden, Prothrombin) [] Past History of DVT or PE [] Significant Chronic Venous Insufficiency Calculated Risk Score: The predicted probability of thirty-day post-discharge VTE 0.16 % Risk % Weeks </> BMI 50 SQ Dose [x] Moderate <0.4% 0 None [] High Risk 0.4% - 1% 2 [] 40 mg Lovenox BID [] 60 mg Lovenox BID [] Very High Risk >1% 4 [] 40 mg Lovenox BID [] 60 mg Lovenox BID COMPLETE FILE TO FINANCIAL 04/01/22 WLS Prior Auth Request Submitted: [facility] Prior Auth Approval Received: DVT PPX Risk Factors [] Male [] Age >= 60 years [] BMI >= 50 kg/m^2 [] CHF [] Dyspnea at Rest [] Paraplegia [x] Non-Gastric Band Surgery [] Anticipate Operative Time > 3 hours [] Anticipate Length of Stay >3 days Automatic 4 Weeks of Therapy [] Congenital or Acquired Hypercoagulable Conditions (Factor V Leiden, Prothrombin) [] Past History of DVT or PE [] Significant Chronic Venous Insufficiency Calculated Risk Score: 0.16% Risk % Weeks </> BMI 50 SQ Dose [x] Moderate <0.4% 0 None [] High Risk 0.4% - 1% 2 [] 40 mg Lovenox BID [] 60 mg Lovenox BID [] Very High Risk >1% 4 [] 40 mg Lovenox BID [] 60 mg Lovenox BID Review of Symptoms Constitutional: negative for chills, fevers, night sweats Respiratory: negative for cough, dyspnea on exertion, hemoptysis, and sputum Cardiovascular: negative for chest pain, chest pressure/discomfort, dyspnea, irregular heart beat, palpitations, and syncope Gastrointestinal: negative for abdominal pain, constipation, diarrhea, dysphagia, melena, reflux symptoms, and vomiting Neurological: negative for dizziness, paresthesia, seizures, and weakness PAST HISTORIES Past Medical History: Diagnosis Date Asthma Cancer ([facility]/HCC) ([facility]) June 2020 COVID-19 vaccine series completed 02/03/2021 Hx of thyroid cancer Joint pain, hip Joint pain, knee Morbid obesity due to excess calories ([facility]) 09/28/2021 Muscle weakness Postoperative hypothyroidism Pre-diabetes SOB (shortness of breath) on exertion Past Surgical History: Procedure Laterality Date ANKLE FRACTURE SURGERY 1993 [place] APPENDECTOMY 2001 Edwin DILATION AND CURETTAGE OF UTERUS [id number] OVARIAN CYST REMOVAL Jamar THYROIDECTOMY Bilateral 2020 Dr. Johnson - Edwin TONSILLECTOMY (HISTORICAL) 1980 [place] Family History Problem Relation Name Age of Onset Obesity Mother Jadeice Diabetes Mother Darian Diabetes type II Mother Derice Cancer Maternal Grandmother Laquita No Known Allergies PHYSICAL EXAM BP (!) 161/78 Pulse 108 Temp 36.4 C (97.6 F) Resp 18 Ht 5' 1 (1.549 m) Wt 241 lb (109 kg) BMI 45.54 kg/m General: This patient is awake, alert, and oriented, with normal affect and is in no apparent distress. Cardiac: Regular rate and rhythm without evidence of murmur. Respiratory: Clear to auscultation bilaterally with normal effort. Abdomen: Obese, soft, non-tender, non-distended without masses/ No evidence of abdominal hernia / Incisions consistent with previous surgeries. Surgical sites: Clean dry and intact Head and Neck: Obese, normocephalic and atraumatic/soft and supple, no lymphadenopathy or obvious bruits. No thyroidmegaly. Extremities: No cyanosis, clubbing or edema/ No calf tenderness/No restrictions of movement, is ambulatory without assistance. Neurological: Intact x 4 extremities, normal sensation, no focal deficits notes. Skin: Skin cool, warm and dry. No rashes or lesions noted. Rectal: Deferred LABORATORY STUDIES AND IMAGING Laboratory Studies: No results for input(s): NA, K, CL, CO2, BUN, CREATININE, GLUCOSE, CALCIUM in the last 72 hours. No results for input(s): WBC, RBC, HGB, HCT, MCV, MCH, MCHC, RDW, PLT, MPV in the last 72 hours. No results for input(s): ALKPHOS, ALT, AST, PROT, BILITOT, BILIDIR, LIPASE in the last 72 hours. No lab exists for component: LABALBU ASSESSMENT Encounter Diagnoses Name Primary? Pre-diabetes Morbid obesity with BMI of 45.0-49.9, adult ([facility]) ([facility]) In anticipation of weight reductive surgery now or in the future, we spent a great deal of time discussing the risks and benefits of , including but not limited to injury to intra-abdominal organs, breakdown of the gastric staple line, the need for re-operative therapy, prolonged hospitalization, mechanical ventilation, and . We discussed the possibility of bleeding, the need for blood transfusions, blood clots, hospital-acquired and intra-abdominal infection, anastomotic stricture, and worsening GERD. And we discussed the need for post-operative visit compliance, behavior modifications and diet changes, protein and vitamin supplementation, as well as routine scheduled and dedicated exercise. We discussed the potential weight loss benefit of approximately 60-70% of the excess body weight at 12-18 months post-op, as well as the possibility of insufficient weight loss or weight gain. PLAN Based on today's evaluation, the patient is ready to proceed Laparoscopic Sleeve Gastrectomy and Laparoscopic Hiatal Hernia as detailed above. No orders of the defined types were placed in this encounter. ATTESTATION I personally interviewed and examined the patient. I have reviewed their past medical, surgical, medication, allergy, social and family histories. I have performed an independent physical examinationand have reviewed all pertinent laboratory and imaging results. I have reviewed with the patient myassessment of their condition as well as the treatment recommendations and the associated risks, benefits and options. I have spent a total of 30 minutes for this office visit in [id number] discussion, counseling of this patient, reviewing medical records and documenting the encounter. OD COLLAZO MD, FACS, [facility] Cinetechnician - Weight Management [place] [facility] End Finder Twisting Department - Advanced GI MIS, Foregut and Bariatric Surgery Fellowship ---[facility]--- Patient Care Team: Chris Rosa MD as PCP - General Mary Chau RN as Registered Nurse Jarrod Collazo MD as Surgeon (General Surgery) * Rhona Shankar MA - 05/04/2022 10:45 AM EDT [facility] SURGICAL WEIGHT LOSS MANAGEMENT PROGRAM Rooming note: FINAL PRE-OP VISIT Patient: Laquita Choudhury Date of : 1975 Service Date: 05/04/2022 This patient is accompanied by alone for the evaluation today Patient is here today for their final pre-operative visit with surgeon prior to undergoing surgicalweight loss intervention. Patient has the following question(s): none Weight Metrics: Measurements Weight: 241 lb (109 kg) Height: 5' 1 (154.9 cm) BMI (Calculated): 45.6 Percent Excess Weight Loss: 0 Percent Weight Change Since Preop (kg): 109.32 kg Initial Excess Weight (kg): -47.63 kg IBW in kg (Bariatric): 47.63 kg IBW in lb (Bariatric): 105 lb Weight Change Since Last Visit: 109.32 kg Percent of IBW: 229.52 Percent EBW (kg): 61.66 kg EBW (lb): 136 lb Today's weight has decreased from the last visit Falls Risk Assessment Patient does not take medications which affect BP or mental status Patient does not have newly prescribed or changed dosage of medications within past 30 days which affect BP or mental status Patient has not fallen in the past 2 months Patient does not demonstrate unsteady gait Patient uses the following ambulatory assistive devices: none Patient states the presence of the following traits which increases risk of fall: none Patient is low risk for falls. If high or moderate risk, patient instructed not to ambulate independently in the Center, and cord for call light placed within reach of patient. Patient has not had a time when it was difficult for an IV to be placed. Patient is not on home O2 Patient has not has a time when it was difficult to intubate them Patient does not have a CPAP/BiPAP machine. If patient DOES have CPAP/BiPAP: [] CPAP [] BiPAP Settings are cm H2O PAP and settings entered into the Medication List Completed by: Rhona Shankar MA documented in this [facility]03-15-2023 History of Present illness Narrative* Jarrod Collazo MD - 05/04/2022 10:45 AM EDT Images from the original note were not included. JARROD COLLAZO MD , FACS, [facility] MINIMALLY INVASIVE & METABOLIC / BARIATRIC SURGERY [facility] - FINAL PRE-OP VISIT 05/04/2022 PATIENT: Laquita Choudhury DATE OF : 1975 HISTORY OF PRESENT ILLNESS Chief Complaint: Morbid Obesity and here for final preoperative evaluation, informed consent and discussion of work-up results. Laquita Choudhury is a 46 y.o. female with morbid obesity and associated comorbid conditions who [facility] for final pre-operative evaluation and for discussion of the preoperative testing results. A discussion of the risks, benefits and options of the planned procedure was also held and all questions were answered to the patient's satisfaction. The patient stands Height: 5'1 (154.9 cm) tall with a weight of Weight: 241 lb (109 kg) , and has a BMI of Body mass index is 45.54 kg/m .. PATIENT SUMMARY Laquita Collazo 46 y.o. female with Body mass index is 42.07 kg/m Laparoscopic Sleeve Gastrectomy W / HH REPAIR, liver bx Procedure DM[] HTN[] BO[] GERD[] HL[] OA[x] TOB[] Date of Surgery: 05/24/2022 NOTES AD I did LSG on patient's mom Darian Rosales Pt works in [employer] for [employer] in [email or web address] PCP: Chris Rosa MD INITIAL TESTING RESULTS Labwork [x] CMP, TSH, Fasting Lipid Profile, Mg, Zinc, Vit B1 (whole blood), Vit B12, 25-OH Vit D, Fe, Ferritin, Folate 03/17/22 TSH LOW- RECEIVED LETTER FROM ENDO- SENT TO [facility] FOR REVIEW REVIEWED NOTE FROM DR Vicente Adorno. Ok TO PROCEED as RELATES TO LOW TSH. Tobacco [x] Serum Nicotine / Cotinine 03/17/22 [x] Negative [] Positive EGD [x] Dx: [] GERD [x] Dyspepsia [] Other Hiatal Hernia Sliding. Thickened fundus (biopsied) (AD 03/18/22) Pathology [x] H. pylori [x] Negative [] Positive UGI [x] [] not ordered 03/23/22-no HH US Abdomen [x] [] not ordered 03/2022 cholelithiasis BO eval [x] [] On CPAP / Obtain settings Did with Dr. Castellon- trial CPAP was not effective. AHI was 4.4 Hematology [] [] Hypercoagulation panel Toxicology [] [] Urine drug screen [] EtOH screen Addtional [] [] Hgb A1c INITIAL CONSULTATIONS CLEARANCE / MANAGEMENT Psychology [x] Dr. Whelan Reviewed Cleared by Bijal Teague PsyD 03.31.2022 Dietitian [x] Hetal Padgett RD, LD 11/03/21 Cleared Cardiology [x] [] not ordered ISADA CLEARED 03/28/22 Pulmonary [] [x] not ordered Others [] []Heme/Onc []Psychiatry []Pain mgmt PSD [] Physician supervised diet: []None [x]3 mos []6 mos Preop diet [] Preop low calory diet: [x]None []1 wk []2 wks []Ext. FINAL PRE-OP TESTING RESULTS Labwork [x] [x]Pre-op CBC [x]BMP []Serum Nicotine / Cotinine EKG [x] CXR [x] POST-OP MEDICATIONS Ulcer Ppx [x] Omeprazole 20 mg PO [x]QD []BID Gallstone Ppx [x] Ursodiol 300 mg [x]BID DVT Ppx [x] DVT prophylaxis per final preop visit estimated risk Estimated calculated risk: 0.16 % DVT PPX Risk Factors [] Male [] Age >= 60 years [] BMI >= 50 kg/m^2 [] CHF [] Dyspnea at Rest [] Paraplegia [x] Non-Gastric Band Surgery [] Anticipate Operative Time > 3 hours [] Anticipate Length of Stay >3 days Automatic 4 Weeks of Therapy [] Congenital or Acquired Hypercoagulable Conditions (Factor V Leiden, Prothrombin) [] Past History of DVT or PE [] Significant Chronic Venous Insufficiency Calculated Risk Score: The predicted probability of thirty-day post-discharge VTE 0.16 % Risk % Weeks </> BMI 50 SQ Dose [x] Moderate <0.4% 0 None [] High Risk 0.4% - 1% 2 [] 40 mg Lovenox BID [] 60 mg Lovenox BID [] Very High Risk >1% 4 [] 40 mg Lovenox BID [] 60 mg Lovenox BID COMPLETE FILE TO FINANCIAL 04/01/22 WLS Prior Auth Request Submitted: DENA Prior Auth Approval Received: DVT PPX Risk Factors [] Male [] Age >= 60 years [] BMI >= 50 kg/m^2 [] CHF [] Dyspnea at Rest [] Paraplegia [x] Non-Gastric Band Surgery [] Anticipate Operative Time > 3 hours [] Anticipate Length of Stay >3 days Automatic 4 Weeks of Therapy [] Congenital or Acquired Hypercoagulable Conditions (Factor V Leiden, Prothrombin) [] Past History of DVT or PE [] Significant Chronic Venous Insufficiency Calculated Risk Score: 0.16% Risk % Weeks </> BMI 50 SQ Dose [x] Moderate <0.4% 0 None [] High Risk 0.4% - 1% 2 [] 40 mg Lovenox BID [] 60 mg Lovenox BID [] Very High Risk >1% 4 [] 40 mg Lovenox BID [] 60 mg Lovenox BID Review of Symptoms Constitutional: negative for chills, fevers, night sweats Respiratory: negative for cough, dyspnea on exertion, hemoptysis, and sputum Cardiovascular: negative for chest pain, chest pressure/discomfort, dyspnea, irregular heart beat, palpitations, and syncope Gastrointestinal: negative for abdominal pain, constipation, diarrhea, dysphagia, melena, reflux symptoms, and vomiting Neurological: negative for dizziness, paresthesia, seizures, and weakness PAST HISTORIES Past Medical History: Diagnosis Date Asthma Cancer (CMS/HCC) ([facility]) June 2020 COVID-19 vaccine series completed 02/03/2021 Hx of thyroid cancer Joint pain, hip Joint pain, knee Morbid obesity due to excess calories ([facility]) 09/28/2021 Muscle weakness Postoperative hypothyroidism Pre-diabetes SOB (shortness of breath) on exertion Past Surgical History: Procedure Laterality Date ANKLE FRACTURE SURGERY 1993 [place] APPENDECTOMY 2001 [place] DILATION AND CURETTAGE OF UTERUS [id number] X4 OVARIAN CYST REMOVAL Jamar THYROIDECTOMY Bilateral 2020 Dr. Johnson - Edwin TONSILLECTOMY (HISTORICAL) 1980 [place] Family History Problem Relation Name Age of Onset Obesity Mother Jadeice Diabetes Mother Jadeice Diabetes type II Mother Derice Cancer Maternal Grandmother Laquita No Known Allergies PHYSICAL EXAM BP (!) 161/78 Pulse 108 Temp 36.4 C (97.6 F) Resp 18 Ht 5' 1 (1.549 m) Wt 241 lb (109 kg) BMI 45.54 kg/m General: This patient is awake, alert, and oriented, with normal affect and is in no apparent distress. Cardiac: Regular rate and rhythm without evidence of murmur. Respiratory: Clear to auscultation bilaterally with normal effort. Abdomen: Obese, soft, non-tender, non-distended without masses/ No evidence of abdominal hernia / Incisions consistent with previous surgeries. Surgical sites: Clean dry and intact Head and Neck: Obese, normocephalic and atraumatic/soft and supple, no lymphadenopathy or obvious bruits. No thyroidmegaly. Extremities: No cyanosis, clubbing or edema/ No calf tenderness/No restrictions of movement, is ambulatory without assistance. Neurological: Intact x 4 extremities, normal sensation, no focal deficits notes. Skin: Skin cool, warm and dry. No rashes or lesions noted. Rectal: Deferred LABORATORY STUDIES AND IMAGING Laboratory Studies: No results for input(s): NA, K, CL, CO2, BUN, CREATININE, GLUCOSE, CALCIUM in the last 72 hours. No results for input(s): WBC, RBC, HGB, HCT, MCV, MCH, MCHC, RDW, PLT, MPV in the last 72 hours. No results for input(s): ALKPHOS, ALT, AST, PROT, BILITOT, BILIDIR, LIPASE in the last 72 hours. No lab exists for component: LABALBU ASSESSMENT Encounter Diagnoses Name Primary? Pre-diabetes Morbid obesity with BMI of 45.0-49.9, adult ([facility]) ([facility]) In anticipation of weight reductive surgery now or in the future, we spent a great deal of time discussing the risks and benefits of , including but not limited to injury to intra-abdominal organs, breakdown of the gastric staple line, the need for re-operative therapy, prolonged hospitalization, mechanical ventilation, and . We discussed the possibility of bleeding, the need for blood transfusions, blood clots, hospital-acquired and intra-abdominal infection, anastomotic stricture, and worsening GERD. And we discussed the need for post-operative visit compliance, behavior modifications and diet changes, protein and vitamin supplementation, as well as routine scheduled and dedicated exercise. We discussed the potential weight loss benefit of approximately 60-70% of the excess body weight at 12-18 months post-op, as well as the possibility of insufficient weight loss or weight gain. PLAN Based on today's evaluation, the patient is ready to proceed Laparoscopic Sleeve Gastrectomy and Laparoscopic Hiatal Hernia as detailed above. No orders of the defined types were placed in this encounter. ATTESTATION I personally interviewed and examined the patient. I have reviewed their past medical, surgical, medication, allergy, social and family histories. I have performed an independent physical examinationand have reviewed all pertinent laboratory and imaging results. I have reviewed with the patient myassessment of their condition as well as the treatment recommendations and the associated risks, benefits and options. I have spent a total of 30 minutes for this office visit in [id number] discussion, counseling of this patient, reviewing medical records and documenting the encounter. OD COLLAZO MD, FACS, [facility] [employer] - Weight Management [place] [facility] End [employer]inder Twisting Department - Advanced GI MIS, Foregut and Bariatric Surgery Fellowship ---[facility]--- Patient Care Team: Chris Rosa MD as PCP - General Mary Chau RN as Registered Nurse Jarrod Collazo MD as Surgeon (General Surgery) * Rhona Shankar MA - 05/04/2022 10:45 AM EDT [facility] SURGICAL WEIGHT LOSS MANAGEMENT PROGRAM Rooming note: FINAL PRE-OP VISIT Patient: Laquita Choudhury Date of : 1975 Service Date: 05/04/2022 This patient is accompanied by alone for the evaluation today Patient is here today for their final pre-operative visit with surgeon prior to undergoing surgicalweight loss intervention. Patient has the following question(s): none Weight Metrics: Measurements Weight: 241 lb (109 kg) Height: 5' 1 (154.9 cm) BMI (Calculated): 45.6 Percent Excess Weight Loss: 0 Percent Weight Change Since Preop (kg): 109.32 kg Initial Excess Weight (kg): -47.63 kg IBW in kg (Bariatric): 47.63 kg IBW in lb (Bariatric): 105 lb Weight Change Since Last Visit: 109.32 kg Percent of IBW: 229.52 Percent EBW (kg): 61.66 kg EBW (lb): 136 lb Today's weight has decreased from the last visit Falls Risk Assessment Patient does not take medications which affect BP or mental status Patient does not have newly prescribed or changed dosage of medications within past 30 days which affect BP or mental status Patient has not fallen in the past 2 months Patient does not demonstrate unsteady gait Patient uses the following ambulatory assistive devices: none Patient states the presence of the following traits which increases risk of fall: none Patient is low risk for falls. If high or moderate risk, patient instructed not to ambulate independently in the Center, and cord for call light placed within reach of patient. Patient has not had a time when it was difficult for an IV to be placed. Patient is not on home O2 Patient has not has a time when it was difficult to intubate them Patient does not have a CPAP/BiPAP machine. If patient DOES have CPAP/BiPAP: [] CPAP [] BiPAP Settings are cm H2O PAP and settings entered into the Medication List Completed by: Rhona Shankar MA documented in this [facility]03-13-2023 Telephone encounter Note* Telephone Encounter - Tori Nweton RN - 05/02/2022 1:43 PM EDT No lovenox DVT Ppx [x] DVT prophylaxis per final preop visit estimated risk Estimated calculated risk: 0.16 % DVT PPX Risk Factors [] Male [] Age >= 60 years [] BMI >= 50 kg/m^2 [] CHF [] Dyspnea at Rest [] Paraplegia [x] Non-Gastric Band Surgery [] Anticipate Operative Time > 3 hours [] Anticipate Length of Stay >3 days Automatic 4 Weeks of Therapy [] Congenital or Acquired Hypercoagulable Conditions (Factor V Leiden, Prothrombin) [] Past History of DVT or PE [] Significant Chronic Venous Insufficiency Calculated Risk Score: The predicted probability of thirty-day post-discharge VTE 0.16 % Risk % Weeks </> BMI 50 SQ Dose [x] Moderate <0.4% 0 None [] High Risk 0.4% - 1% 2 [] 40 mg Lovenox BID [] 60 mg Lovenox BID [] Very High Risk >1% 4 [] 40 mg Lovenox BID [] 60 mg Lovenox BID [facility] [id number] History of Present illness Narrative* Kristen Marcus MD - 03/28/2022 3:00 PM EST [facility] Cardiology Note Visit type: New : 1975 Chief Complaint: Chief Complaint Patient presents with New Patient History of Present Illness: Laquita Choudhury is a 46 year old lady referred for pre-op risk assessment for upcoming planned bariatric intervention. Review of the EMR finds no previous cardiac testing, not even and EKG tracing. No recent labs either. Had thyroid malignancy 2 years prior, still with fatigue; had thyroidectomy and XRT. No atrial arrhythmias surround the surgery. +++ multiple miscarriages, 3. No FH of clotting disorder, and no issue with problem post op. No chest sx, no SOB with ADL's. Past Medical History: Past Medical History: Diagnosis Date Asthma Cancer (CMS/HCC) ([facility]) June 2020 Hx of thyroid cancer Joint pain, hip Joint pain, knee Morbid obesity due to excess calories ([facility]) 09/28/2021 Muscle weakness Postoperative hypothyroidism Pre-diabetes SOB (shortness of breath) on exertion Past Surgical History Past Surgical History: Procedure Laterality Date ANKLE FRACTURE SURGERY 1993 [place] APPENDECTOMY 2002 [place] DILATION AND CURETTAGE OF UTERUS [id number] X4 OVARIAN CYST REMOVAL Jamar THYROIDECTOMY Bilateral 2020 Dr. Johnson - Edwin TONSILLECTOMY (HISTORICAL) 1980 [place] Family History Family History Problem Relation Name Age of Onset Obesity Mother Derice Diabetes Mother Derice Diabetes type II Mother Derice Cancer Maternal Grandmother Laquita Social History Social History Tobacco Use Smoking status: Never Smokeless tobacco: Never Vaping Use Vaping Use: Never used Substance Use Topics Alcohol use: Yes Alcohol/week: 1.0 standard drink Types: 1 Glasses of wine per week Comment: Per month Drug use: Never Allergies: No Known Allergies Medications: Current Outpatient Medications: albuterol 108 (90 Base) MCG/ACT inhaler, Inhale 2 puffs every 4 hours as needed., Disp: , Rfl: cholecalciferol (D3-5) 5,000 Units tablet, Take 1 tablet by mouth in the morning., Disp: , Rfl: DULoxetine (Cymbalta) [address] capsule, Take 60 mg by mouth in the morning., Disp: , Rfl: ferrous sulfate 325 (65 Fe) MG tablet, Take 325 mg by mouth daily (with breakfast)., Disp: , Rfl: levothyroxine (Synthroid, Levoxyl) 150 MCG tablet, Take 150 mcg by mouth., Disp: , Rfl: Multiple Vitamin (Multi-Vitamin) tablet, Take 1 tablet by mouth in the morning., Disp: , Rfl: Review of Systems: Review of Systems Constitutional: Positive for diaphoresis (since taking cymbalta) and fatigue (recent anemia on iron). Negative for activity change, chills and fever. HENT: Negative for nosebleeds. Eyes: Negative for visual disturbance. Respiratory: Negative for apnea, cough, chest tightness, shortness of breath and wheezing. Cardiovascular: Negative for chest pain, palpitations and leg swelling. In bed; 2 pillows; no PND; no RF/ SF; no murmur; no activity limits in youth; no routine dental prophylaxis Gastrointestinal: Negative for abdominal distention, abdominal pain, blood in stool, diarrhea, nausea and vomiting. Endocrine: Negative for cold intolerance and heat intolerance. Genitourinary: Negative for hematuria. Musculoskeletal: Positive for arthralgias. Negative for gait problem and myalgias. Skin: Negative for color change and rash. Allergic/Immunologic: Positive for environmental allergies (mild OTC). Neurological: Negative for dizziness, syncope (no vagal events), light- headedness and headaches. Hematological: Does not bruise/bleed easily. No blood tx; no DVT, no PE; 3 miscarriages; on still born; 2 live deliveries Psychiatric/Behavioral: Negative for dysphoric mood and sleep disturbance (sleeps 8-10 hours). The patient is not nervous/anxious. Physical Examination: Vitals: Vitals: 03/28/22 1508 BP: (!) 126/90 BP Location: Left arm Patient Position: Sitting BP Cuff Size: Large adult Pulse: 102 Resp: 16 Weight: 242 lb (110 kg) Height: 5' 2 (1.575 m) Body mass index is 44.26 kg/m . Physical Exam Vitals and nursing note reviewed. Constitutional: Appearance: Normal appearance. She is not ill-appearing. Eyes: General: No scleral icterus. Right eye: No discharge. Left eye: No discharge. Neck: Vascular: No carotid bruit. Cardiovascular: Rate and Rhythm: Normal rate and regular rhythm. Pulses: Normal pulses. Heart sounds: Normal heart sounds. No murmur heard. No friction rub. No gallop. Comments: 134/86 mm Hg R and 138/78 mm Hg L sitting, large cuff, R handed Pulmonary: Effort: Pulmonary effort is normal. No respiratory distress. Breath sounds: Normal breath sounds. No stridor. No wheezing or rales. Abdominal: General: Bowel sounds are normal. There is no distension. Palpations: Abdomen is soft. Tenderness: There is no abdominal tenderness. There is no guarding. Comments: No hepatomegaly by percussion, no bruit Musculoskeletal: Right lower leg: No edema. Left lower leg: No edema. Skin: Coloration: Skin is not pale. Neurological: Mental Status: She is alert. Psychiatric: Mood and Affect: Mood normal. Behavior: Behavior normal. Cardiac Tests: ECG: Mar 2022; sinus tach 102/min; normal Last Echo: NA Last stress test: NA Last cardiac catheterization: NA Assessment and Plan: 1. Morbid obesity due to excess calories (HCC) 2. Pre-diabetes 3. Pre-operative clearance 4. History of head and neck radiation She had h/o thyroid cancer and resection, and XRT - this should not be a serious issue, but I should check carotid ultrasound. This does not necessarily need to get done pre-op, but would be ideal ifit could - certainly not urgent. I am a little worried about the 3 miscarriages, but she has not h/o DVT, PE or other complications,even with malignancy, and no issue in the family with clotting disorder. I don't think I need hypercoag profile Return in 7-8 months, sooner if new issues arise. She is low risk from cardiac standpoint for upcoming intermediate risk procedure. There are no immediate cardiac contraindications. She may go forward. documented in this encounterSTriHealth [facility] North [id number] Telephone encounter Note* Telephone Encounter - Suzanne Treviño LPN - 03/25/2022 1:45 PM EST Noted, thank you. [facility] [id number] Miscellaneous Notes* Telephone Encounter - Suzanne Treviño LPN - 03/25/2022 1:45 PM EST Noted, thank you. * Telephone Encounter - Ekaterina Wharton APRN - [facility] - 03/24/2022 12:27 PM EST REVIEWED NOTE FROM DR Vicente Adorno. Ok TO PROCEED as RELATES TO LOW TSH. * Telephone Encounter - Suzanne Treviño LPN - 03/24/2022 11:42 AM EST Received note from Karsten regarding TSH. Note to CELLAR WORKER mailbox for review. * Telephone Encounter - Suzanne Treviño LPN - 03/24/2022 11:34 AM EST Noted thank you. * Telephone Encounter - LISSET Reveles CNP - 03/24/2022 10:31 AM EST Report reviewed. Hypersomnia but no BO. OK to proceed w surgery planning. * Telephone Encounter - Suzanne Treviño LPN - 03/21/2022 8:44 AM EST Patient did BO eval with Dr. Castellon. She stated they tried CPAP for her hypersomnia but it was not effective and Said she did not need it. AHI documented in OV notes was 4.4. To CELLAR WORKER mailbox for review. documented in this [facility]02-02-2023 Telephone encounter Note* Telephone Encounter - LISSET Reveles CNP - 03/24/2022 12:27 PM EST REVIEWED NOTE FROM DR Vicente Adorno. Ok TO PROCEED as RELATES TO LOW TSH. [facility] [employer] Work Phone: [phone] Miscellaneous Notes* Telephone Encounter - LISSET Reveles CNP - 03/24/2022 12:27 PM EST REVIEWED NOTE FROM DR Vicente Adorno. Ok TO PROCEED as RELATES TO LOW TSH. * Telephone Encounter - Suzanne Treviño LPN - 03/24/2022 11:42 AM EST Received note from Endo regarding TSH. Note to CELLAR WORKER mailbox for review. * Telephone Encounter - Suzanne Treviño LPN - 03/24/2022 11:34 AM EST Noted thank you. * Telephone Encounter - LISSET Reveles CNP - 03/24/2022 10:31 AM EST Report reviewed. Hypersomnia but no BO. OK to proceed w surgery planning. * Telephone Encounter - Suzanne Treviño LPN - 03/21/2022 8:44 AM EST Patient did BO eval with Dr. Castellon. She stated they tried CPAP for her hypersomnia but it was not effective and Said she did not need it. AHI documented in OV notes was 4.4. To CELLAR WORKER mailbox for review. documented in this encounterSTriHealth Bethesda North [id number] Telephone encounter Note* Telephone Encounter - Suzanne Treviño LPN - 03/24/2022 11:42 AM EST Received note from Endo regarding TSH. Note to CELLAR WORKER mailbox for review. [facility] [id number] Telephone encounter Note* Telephone Encounter - Suzanne Treviño LPN - 03/24/2022 11:34 AM EST Noted thank you. [facility] [id number] Telephone encounter Note* Telephone Encounter - LISSET Reveles CNP - 03/24/2022 11:14 AM EST Thanks, noted. [facility] [employer] Work Phone: [phone] Miscellaneous Notes* Telephone Encounter - LISSET Reveles CNP - 03/24/2022 11:14 AM EST Thanks, noted. * Telephone Encounter - Ailyn Pollard RD - 03/18/2022 3:04 PM EST Called pt regarding Iron at 31, Ferritin at 4 and H/H at 11.4/ 36.9. Ca+. Slightly low at 8.4. TSH,per CELLAR WORKER, to discuss adjusting dose with PCP. Pt is currently taking MVI with iron. Will add ferrous sulfate 3215 mg daily and will increase high ca+ foods. Will update med list. Will monitor levels pos toperatively. Pt aware of TSH and has reached out to dielectric press operator to adjust meds. documented in this encounterSTriHealth Bethesda North [id number] Telephone encounter Note* Telephone Encounter - LISSET Reveles CNP - 03/24/2022 10:31 AM EST Report reviewed. Hypersomnia but no BO. OK to proceed w surgery planning. [facility] [id number] Telephone encounter Note* Telephone Encounter - Suzanne Treviño LPN - 03/21/2022 8:44 AM EST Patient did BO eval with Dr. Castellon. She stated they tried CPAP for her hypersomnia but it was not effective and Said she did not need it. AHI documented in OV notes was 4.4. To CELLAR WORKER mailbox for review. [facility] [id number] Telephone encounter Note* Telephone Encounter - Ailyn Pollard RD - 03/18/2022 3:04 PM EST Called pt regarding Iron at 31, Ferritin at 4 and H/H at 11.4/ 36.9. Ca+. Slightly low at 8.4. TSH,per CELLAR WORKER, to discuss adjusting dose with PCP. Pt is currently taking MVI with iron. Will add ferrous sulfate 3215 mg daily and will increase high ca+ foods. Will update med list. Will monitor levels pos toperatively. Pt aware of TSH and has reached out to dielectric press operator to adjust meds. [facility] [id number] Miscellaneous Notes* Telephone Encounter - Ailyn Pollard RD - 03/18/2022 3:04 PM EST Called pt regarding Iron at 31, Ferritin at 4 and H/H at 11.4/ 36.9. Ca+. Slightly low at 8.4. TSH,per CELLAR WORKER, to discuss adjusting dose with PCP. Pt is currently taking MVI with iron. Will add ferrous sulfate 3215 mg daily and will increase high ca+ foods. Will update med list. Will monitor levels pos toperatively. Pt aware of TSH and has reached out to dielectric press operator to adjust meds. documented in this [facility]01-27-2023 History and physical note* Jarrod Collazo MD - 03/18/2022 10:53 AM EST Images from the original note were not included. JARROD COLLAZO MD , FACS, FASMBS MINIMALLY INVASIVE & METABOLIC / BARIATRIC SURGERY [facility] HISTORY AND PHYSICAL 03/18/2022 PATIENT: Laquita Choudhury DATE OF : 1975 HISTORY OF PRESENT ILLNESS: The patient is a 46 y.o. female who presents for endoscopic evaluation of dyspepsia in preparation for SLEEVE GASTRECTOMY - maddie MAO with Dr. Jarrod Collazo. Thoroughly reviewed the patient's medical history, family history, social history and review of systems with the patient today in the office. Please see medical record for pertinent positives. Past Medical History: Past Medical History: Diagnosis Date Asthma Hx of thyroid cancer Joint pain, hip Joint pain, knee Morbid obesity due to excess calories (HCC) 09/28/2021 Muscle weakness Postoperative hypothyroidism Pre-diabetes SOB (shortness of breath) on exertion Past Surgical History: Past Surgical History: Procedure Laterality Date ANKLE FRACTURE SURGERY 1993 [place] APPENDECTOMY 2001 [place] DILATION AND CURETTAGE OF UTERUS [id number] X4 OVARIAN CYST REMOVAL Jamar THYROIDECTOMY Bilateral 2020 Dr. Johnson - Edwin TONSILLECTOMY (HISTORICAL) 1980 [place] Current Medications: No current facility-administered medications for this encounter. Prior to Admission medications Medication Sig Start Date End Date Taking? Authorizing Provider cholecalciferol (D3-5) 5,000 Units tablet Take 1 tablet by mouth in the morning. Yes Historical Provider, DULoxetine (Cymbalta) [address] capsule Take 60 mg by mouth in the morning. 09/30/21 Yes Historical Provider, levothyroxine (Synthroid, Levoxyl) 150 MCG tablet Take 150 mcg by mouth. 09/22/21 Yes Historical Provider, Multiple Vitamin (Multi-Vitamin) tablet Take 1 tablet by mouth in the morning. 06/08/10 Yes Historical Provider, albuterol 108 (90 Base) MCG/ACT inhaler Inhale 2 puffs every 4 hours as needed. 01/28/16 Historical Provider, Allergies: Patient has no known allergies. Social History: Social History Socioeconomic History Marital status: Spouse name: Not on file Number of children: Not on file Years of education: Not on file Highest education level: Not on file Occupational History Not on file Tobacco Use Smoking status: Never Smokeless tobacco: Never Vaping Use Vaping Use: Never used Substance and Sexual Activity Alcohol use: Yes Drug use: Never Sexual activity: Not on file Other Topics Concern Not on file Social History Narrative Not on file Social Determinants of Health Financial Resource Strain: Not on file Food Insecurity: Not on file Transportation Needs: Not on file Physical Activity: Not on file Stress: Not on file Social Connections: Not on file Intimate Partner Violence: Not on file Housing Stability: Not on file Family History: @FAMXNH@ REVIEW OF SYSTEMS: CONSTITUTIONAL: Negative for fatigue, and unexpected weight change RESPIRATORY: Negative for cough, SOB, and wheezing CARDIOVASCULAR: Negative for chest pains and palpatations GASTROINTESTINAL: dyspepsia HEMATOLOGIC/LYMPHATIC: Negative for adenopathy. Does not bruise/bleed easily. NEUROLOGICAL: Negative for seizures and syncope * All other ROS reviewed see HPI for pertinent positives and negatives. PHYSICAL EXAM: VITALS: BP (!) 183/113 Pulse 98 Temp 35.8 C (96.5 F) (Temporal) Resp 20 Ht 5' 1 (1.549 m) Wt 235 lb (107 kg) SpO2 96% BMI 44.40 kg/m GENERAL: Oriented to person, place, and time. Appears well nourished. No distress ENT: Normocepalic,atraumatic, without obvious abnormality NECK: supple, symmetrical, trachea midline LUNGS: Resp effort easy and unlabored, breath sounds normal CARDIOVASCULAR: RRR, No murmur ABDOMEN: Soft, non-tender, no open wounds. MUSCULOSKELETAL: Normal range of motion, ambulatory without assistance NEUROLOGIC: No focal neurologic deficits IMPRESSION/RECOMMENDATIONS: EGD with Biopsy Patient counseled on risks, benefits, and alternatives of treatment plan at length. Patient states an understanding and willingness to proceed with plan. [facility]01-27-2023 History and physical note* Jarrod Collazo MD - 03/18/2022 10:53 AM EST Images from the original note were not included. JARROD COLLAZO MD , FACS, [facility] MINIMALLY INVASIVE & METABOLIC / BARIATRIC SURGERY [facility] HISTORY AND PHYSICAL 03/18/2022 PATIENT: Laquita Choudhury DATE OF : 1975 HISTORY OF PRESENT ILLNESS: The patient is a 46 y.o. female who presents for endoscopic evaluation of dyspepsia in preparation for SLEEVE GASTRECTOMY - aka SG with Dr. Jarrod Collazo. Thoroughly reviewed the patient's medical history, family history, social history and review of systems with the patient today in the office. Please see medical record for pertinent positives. Past Medical History: Past Medical History: Diagnosis Date Asthma Hx of thyroid cancer Joint pain, hip Joint pain, knee Morbid obesity due to excess calories (HCC) 09/28/2021 Muscle weakness Postoperative hypothyroidism Pre-diabetes SOB (shortness of breath) on exertion Past Surgical History: Past Surgical History: Procedure Laterality Date ANKLE FRACTURE SURGERY 1993 [place] APPENDECTOMY 2001 [place] DILATION AND CURETTAGE OF UTERUS [id number] X4 OVARIAN CYST REMOVAL Jamar THYROIDECTOMY Bilateral 2020 Dr. Johnson - Edwin TONSILLECTOMY (HISTORICAL) 1980 [place] Current Medications: No current facility-administered medications for this encounter. Prior to Admission medications Medication Sig Start Date End Date Taking? Authorizing Provider cholecalciferol (D3-5) 5,000 Units tablet Take 1 tablet by mouth in the morning. Yes Historical Provider, DULoxetine (Cymbalta) [address] capsule Take 60 mg by mouth in the morning. 09/30/21 Yes Historical Provider, levothyroxine (Synthroid, Levoxyl) 150 MCG tablet Take 150 mcg by mouth. 09/22/21 Yes Historical Provider, Multiple Vitamin (Multi-Vitamin) tablet Take 1 tablet by mouth in the morning. 06/08/10 Yes Historical Provider, albuterol 108 (90 Base) MCG/ACT inhaler Inhale 2 puffs every 4 hours as needed. 01/28/16 Historical Provider, Allergies: Patient has no known allergies. Social History: Social History Socioeconomic History Marital status: Spouse name: Not on file Number of children: Not on file Years of education: Not on file Highest education level: Not on file Occupational History Not on file Tobacco Use Smoking status: Never Smokeless tobacco: Never Vaping Use Vaping Use: Never used Substance and Sexual Activity Alcohol use: Yes Drug use: Never Sexual activity: Not on file Other Topics Concern Not on file Social History Narrative Not on file Social Determinants of Health Financial Resource Strain: Not on file Food Insecurity: Not on file Transportation Needs: Not on file Physical Activity: Not on file Stress: Not on file Social Connections: Not on file Intimate Partner Violence: Not on file Housing Stability: Not on file Family History: @FAMHXNH@ REVIEW OF SYSTEMS: CONSTITUTIONAL: Negative for fatigue, and unexpected weight change RESPIRATORY: Negative for cough, SOB, and wheezing CARDIOVASCULAR: Negative for chest pains and palpatations GASTROINTESTINAL: dyspepsia HEMATOLOGIC/LYMPHATIC: Negative for adenopathy. Does not bruise/bleed easily. NEUROLOGICAL: Negative for seizures and syncope * All other ROS reviewed see HPI for pertinent positives and negatives. PHYSICAL EXAM: VITALS: BP (!) 183/113 Pulse 98 Temp 35.8 C (96.5 F) (Temporal) Resp 20 Ht 5' 1 (1.549 m) Wt 235 lb (107 kg) SpO2 96% BMI 44.40 kg/m GENERAL: Oriented to person, place, and time. Appears well nourished. No distress ENT: Normocepalic,atraumatic, without obvious abnormality NECK: supple, symmetrical, trachea midline LUNGS: Resp effort easy and unlabored, breath sounds normal CARDIOVASCULAR: RRR, No murmur ABDOMEN: Soft, non-tender, no open wounds. MUSCULOSKELETAL: Normal range of motion, ambulatory without assistance NEUROLOGIC: No focal neurologic deficits IMPRESSION/RECOMMENDATIONS: EGD with Biopsy Patient counseled on risks, benefits, and alternatives of treatment plan at length. Patient states an understanding and willingness to proceed with plan. documented in this [facility]01-27-2023 Note* Op Note - Jarrod Collazo MD - 03/18/2022 10:47 AM EST [facility] Name: Laquita Choudhury Procedure Date: 03/18/2022 10:47 AM Gender: Female Date of : 1975 Age: 46 Admit Type: Outpatient Note Status: Finalized Endoscopist: Jarrod Collazo MD Procedure: Upper GI endoscopy Indications: Functional Dyspepsia, Preoperative assessment for bariatric surgery to treat morbid obesity Findings: The esophagus was normal. The examined duodenum was normal. A medium-sized hiatal hernia was present. No biopsies or other specimens were collected for this exam. Patchy granular mucosa was found in the gastric fundus. This was biopsied with a cold forceps for Helicobacter pylori testing. Impression: - Normal esophagus. - Normal examined duodenum. - Medium-sized hiatal hernia. No specimens collected. - Granular gastric mucosa. Biopsied. Recommendation: - Patient has a contact number available for emergencies. The signs and symptoms of potential delayed complications were discussed with the patient. Return to normal activities tomorrow. Written discharge instructions were provided to the patient. - Return to Bariatric clinic (date not yet determined). Medicines: Monitored Anesthesia Care Procedure: Pre-Anesthesia Assessment: - Prior to the procedure, a History and Physical was performed, and patient medications and allergies were reviewed. The patient's tolerance of previous anesthesia was also reviewed. The risks and benefits of the procedure and the sedation options and risks were discussed with the patient. All questions were answered, and informed consent was obtained. Prior Anticoagulants: The patient has taken no anticoagulant or antiplatelet agents. ASA Grade Assessment: III - A patient with severe systemic disease. After reviewing the risks and benefits, the patient was deemed in satisfactory condition to undergo the procedure. After obtaining informed consent, the endoscope was passed under direct vision. Throughout the procedure, the patient's blood pressure, pulse, and oxygen saturations were monitored continuously. The Endoscope was introduced through the mouth, and advanced to the second part of duodenum. The upper GI endoscopy was accomplished with ease. The patient tolerated the procedure well. Complications: No immediate complications. Procedure Code(s): --- Professional --- 71909, Esophagogastroduodenoscopy, flexible, transoral; with biopsy, single or multiple --- Technical --- 39599, Esophagogastroduodenoscopy, flexible, transoral; with biopsy, single or multiple Diagnosis Code(s): --- Professional --- K44.9, Diaphragmatic hernia without obstruction or gangrene K31.89, Other diseases of stomach and duodenum K30, Functional dyspepsia Z01.818, Encounter for other preprocedural examination E66.01, Morbid (severe) obesity due to excess calories --- Technical --- K44.9, Diaphragmatic hernia without obstruction or gangrene K31.89, Other diseases of stomach and duodenum K30, Functional dyspepsia Z01.818, Encounter for other preprocedural examination E66.01, Morbid (severe) obesity due to excess calories CPT copyright 2020 [employer]. All rights reserved. The codes documented in this report are preliminary and upon design/animation instructor review may be revised to meet current compliance requirements. Attending Participation: I was present and participated during the entire procedure from insertion to removal of the endoscope. Jarrod Collazo MD 03/18/2022 11:06:19 AM This report has been signed electronically. Number of Addenda: 0 Note Initiated On: 03/18/2022 10:47 AM [id number]* Op Note - Jarrod Collazo MD - 03/18/2022 10:47 AM EST [facility] Patient Name: Laquita Choudhury Procedure Date: 03/18/2022 10:47 AM Gender: Female Date of : 1975 Age: 46 Admit Type: Outpatient Note Status: Finalized Endoscopist: Jarrod Collazo MD Procedure: Upper GI endoscopy Indications: Functional Dyspepsia, Preoperative assessment for bariatric surgery to treat morbid obesity Findings: The esophagus was normal. The examined duodenum was normal. A medium-sized hiatal hernia was present. No biopsies or other specimens were collected for this exam. Patchy granular mucosa was found in the gastric fundus. This was biopsied with a cold forceps for Helicobacter pylori testing. Impression: - Normal esophagus. - Normal examined duodenum. - Medium-sized hiatal hernia. No specimens collected. - Granular gastric mucosa. Biopsied. Recommendation: - Patient has a contact number available for emergencies. The signs and symptoms of potential delayed complications were discussed with the patient. Return to normal activities tomorrow. Written discharge instructions were provided to the patient. - Return to Bariatric clinic (date not yet determined). Medicines: Monitored Anesthesia Care Procedure: Pre-Anesthesia Assessment: - Prior to the procedure, a History and Physical was performed, and patient medications and allergies were reviewed. The patient's tolerance of previous anesthesia was also reviewed. The risks and benefits of the procedure and the sedation options and risks were discussed with the patient. All questions were answered, and informed consent was obtained. Prior Anticoagulants: The patient has taken no anticoagulant or antiplatelet agents. ASA Grade Assessment: III - A patient with severe systemic disease. After reviewing the risks and benefits, the patient was deemed in satisfactory condition to undergo the procedure. After obtaining informed consent, the endoscope was passed under direct vision. Throughout the procedure, the patient's blood pressure, pulse, and oxygen saturations were monitored continuously. The Endoscope was introduced through the mouth, and advanced to the second part of duodenum. The upper GI endoscopy was accomplished with ease. The patient tolerated the procedure well. Complications: No immediate complications. Procedure Code(s): --- Professional --- 04702, Esophagogastroduodenoscopy, flexible, transoral; with biopsy, single or multiple --- Technical --- 46898, Esophagogastroduodenoscopy, flexible, transoral; with biopsy, single or multiple Diagnosis Code(s): --- Professional --- K44.9, Diaphragmatic hernia without obstruction or gangrene K31.89, Other diseases of stomach and duodenum K30, Functional dyspepsia Z01.818, Encounter for other preprocedural examination E66.01, Morbid (severe) obesity due to excess calories --- Technical --- K44.9, Diaphragmatic hernia without obstruction or gangrene K31.89, Other diseases of stomach and duodenum K30, Functional dyspepsia Z01.818, Encounter for other preprocedural examination E66.01, Morbid (severe) obesity due to excess calories CPT copyright 2020 [employer]. All rights reserved. The codes documented in this report are preliminary and upon design/animation instructor review may be revised to meet current compliance requirements. Attending Participation: I was present and participated during the entire procedure from insertion to removal of the endoscope. Jarrod Collazo MD 03/18/2022 11:06:19 AM This report has been signed electronically. Number of Addenda: 0 Note Initiated On: 03/18/2022 10:47 AM [id number] Miscellaneous Notes* Op Note - Jarrod Collazo MD - 03/18/2022 10:47 AM EST [facility] Name: Laquita Choudhury Procedure Date: 03/18/2022 10:47 AM Gender: Female Date of : 1975 Age: 46 Admit Type: Outpatient Note Status: Finalized Endoscopist: Jarrod Collazo MD Procedure: Upper GI endoscopy Indications: Functional Dyspepsia, Preoperative assessment for bariatric surgery to treat morbid obesity Findings: The esophagus was normal. The examined duodenum was normal. A medium-sized hiatal hernia was present. No biopsies or other specimens were collected for this exam. Patchy granular mucosa was found in the gastric fundus. This was biopsied with a cold forceps for Helicobacter pylori testing. Impression: - Normal esophagus. - Normal examined duodenum. - Medium-sized hiatal hernia. No specimens collected. - Granular gastric mucosa. Biopsied. Recommendation: - Patient has a contact number available for emergencies. The signs and symptoms of potential delayed complications were discussed with the patient. Return to normal activities tomorrow. Written discharge instructions were provided to the patient. - Return to Bariatric clinic (date not yet determined). Medicines: Monitored Anesthesia Care Procedure: Pre-Anesthesia Assessment: - Prior to the procedure, a History and Physical was performed, and patient medications and allergies were reviewed. The patient's tolerance of previous anesthesia was also reviewed. The risks and benefits of the procedure and the sedation options and risks were discussed with the patient. All questions were answered, and informed consent was obtained. Prior Anticoagulants: The patient has taken no anticoagulant or antiplatelet agents. ASA Grade Assessment: III - A patient with severe systemic disease. After reviewing the risks and benefits, the patient was deemed in satisfactory condition to undergo the procedure. After obtaining informed consent, the endoscope was passed under direct vision. Throughout the procedure, the patient's blood pressure, pulse, and oxygen saturations were monitored continuously. The Endoscope was introduced through the mouth, and advanced to the second part of duodenum. The upper GI endoscopy was accomplished with ease. The patient tolerated the procedure well. Complications: No immediate complications. Procedure Code(s): --- Professional --- 20342, Esophagogastroduodenoscopy, flexible, transoral; with biopsy, single or multiple --- Technical --- 56881, Esophagogastroduodenoscopy, flexible, transoral; with biopsy, single or multiple Diagnosis Code(s): --- Professional --- K44.9, Diaphragmatic hernia without obstruction or gangrene K31.89, Other diseases of stomach and duodenum K30, Functional dyspepsia Z01.818, Encounter for other preprocedural examination E66.01, Morbid (severe) obesity due to excess calories --- Technical --- K44.9, Diaphragmatic hernia without obstruction or gangrene K31.89, Other diseases of stomach and duodenum K30, Functional dyspepsia Z01.818, Encounter for other preprocedural examination E66.01, Morbid (severe) obesity due to excess calories CPT copyright 2020 [employer]. All rights reserved. The codes documented in this report are preliminary and upon design/animation instructor review may be revised to meet current compliance requirements. Attending Participation: I was present and participated during the entire procedure from insertion to removal of the endoscope. Jarrod Collazo MD 03/18/2022 11:06:19 AM This report has been signed electronically. Number of Addenda: 0 Note Initiated On: 03/18/2022 10:47 AM * Downtime Event Note - Jordan Silvestre MD - 02/11/2022 11:05 AM EST Diagnosis replaced with identical ICD.10 due to technical system error in conversion. JORDAN SILVESTRE MD 02/11/2211:05 AM documented in this [facility]01-18-2023 History of Present illness Narrative* Vale Dyer MA - 03/09/2022 3:30 PM EST [facility] SURGICAL WEIGHT LOSS MANAGEMENT PROGRAM PROGRESS NOTE FOLLOW UP Patient: Laquita Choudhury Date of : 1975 Service Date: 03/09/2022 [place] Visit number: 3 of 3 Pre Program Weight Metrics Date of Initial Consultation:@FLOWLAST(8961)@ Initial Weight: @FLOWLAST([id number])@ Initial BMI: @FLOWLAST([id number])@ [place] Body Weight: @FLOWLAST([id number])@ Excess Body Weight: @FLOWLAST([id number])@ Follow Up Weight Metrics Last Three Weights Including Today's Weight: Wt Readings from Last 3 Encounters: 03/09/22 241 lb 12.8 oz (110 kg) 02/04/22 239 lb 3.2 oz (109 kg) 12/22/21 234 lb 6.4 oz (106 kg) Today's BMI: BMI: 45.68 %EBWL: % EBWL: -7% Weight Chance Since Last Visit: Weight Change: 2.6 lbs Weight Change from Initial DE/SPR Weight: Total Weight Change: 7.4 lbs Patient has the following question(s): none Falls Risk Assessment Patient doestake medications which affect BP or mental status Patient does not have newly prescribed or changed dosage of medications within past 30 days which affect BP or mental status Patient has not fallen in the past 2 months Patient does notdemonstrate unsteady gait Patient uses the following ambulatory assistive devices: none Patient states the presence of the following traits which increases risk of fall: none Patient is not on home O2 Completed by: Vale Dyer MA * Cayla Villavicencio MD - 03/09/2022 3:30 PM EST HPI, PHYSICAL EXAM, AND PLAN Patient is here today for follow up of their physician supervised diet and exercise in preparation for weight loss surgery. Weight trend since last visit: gain 2 lb iver 1month stable This patient's excess weight is causing the following co-morbid conditions at this time Other preDM Plan: Physical Examination: BP 139/87 Pulse 101 Resp 14 Ht 5' 1 (1.549 m) Wt 241 lb 12.8 oz (110 kg) BMI 45.69 kg/m General: This patient is alert and oriented X3 General: This patient is awake, alert, and oriented, and is in no apparent distress. Extremities: No cyanosis, clubbing or edema/ No calf tenderness/No restrictions of movement, is ambulatory without assistance. Neurological: Intact x 4 extremities, no focal deficits notes. Skin: No rashes or lesions noted. Assessment of Current Diet and Exercise Current Diet This patient s current diet is: 80% meal plan Her diet contains adequate amounts of protein, inadequate amounts of healthy fats, adequate amountsof green, leafy vegetables, and adequate amounts of fruits. Her comfort foods include: none Current Activity This patient currently does exercise for 30 Minutes per session, 4 times per week, including the following: walking. Current Eating Behaviors This patients demonstrates the following behaviors as they relate to her eating: structured She eats approximately 5-6 times per day. Her last meal/snack was at 6 am/pm. Plan: Obesity continue medical management stable preDM Continue current management, continue weight loss program stable Advised patient that She must continue to adhere to regular monthly visits to meet the requirementsof her insurance company. Additionally, She is to adopt eating plan recommendations and show weight loss trend to demonstratereadiness for the changes that will be required following surgery. Patient's weight pattern does demonstrates meal plan adoption and weight loss each month Physician Diet Recommendations provided in Patient Instructions Patient: [] To return in one month for follow up. Comorbids managing [x] Has completed insurance required monthly diet and exercise series [] Needs to continue monthly visits until surgery Other: Current Meds Patient's Medications New Prescriptions No medications on file Previous Medications ALBUTEROL 108 (90 BASE) MCG/ACT INHALER Inhale 2 puffs every 4 hours as needed. CHOLECALCIFEROL (D3-5) 5,000 UNITS TABLET Take 1 tablet by mouth in the morning. DULOXETINE (CYMBALTA) [address] CAPSULE Take 60 mg by mouth in the morning. LEVOTHYROXINE (SYNTHROID, LEVOXYL) 150 MCG TABLET Take 150 mcg by mouth. MULTIPLE VITAMIN (MULTI-VITAMIN) TABLET Take 1 tablet by mouth in the morning. Modified Medications No medications on file Discontinued Medications No medications on file I spend a total of 20 minutes on the same day of the visit in discussing/counseling the patient regarding the diet and exercise in the preparation for weight loss surgery.Education on the meal plan and 7 rules of eating is provided. Meal prep is encouraged as a foundation of the meal plan. Food journal is encouraged as a feedback system before and after bariatric surgery. Counseling on no nicotine/alcohol before and after surgery. Exercise and its role in the preparation for weight loss surgery is explained. preDM Is associated with obesity and weight loss is discussed as a treatment option for preDM Full chart review was performed.Clinical documentation is updated and completed. documented in this [facility] [id number] Note* Downtime Event Note - Jordan Silvestre MD - 02/11/2022 11:05 AM EST Diagnosis replaced with identical ICD.10 due to technical system error in conversion. JORDAN SILVESTRE MD 02/11/2211:05 AM [employer] Work Phone: 1(832) 106-777912-23-2022 Note* Downtime Event Note - Jordan Silvestre MD - 02/11/2022 11:05 AM EST Diagnosis replaced with identical ICD.10 due to technical system error in conversion. JORDAN SILVESTRE MD 02/11/2211:05 AM [employer] Work Phone: 1(742) 659-264403-17-2022 NotePap Smear Specimen AdequacyMarch 2021 2:55pmCommentSatisfactory for evaluation. Endocervical and/or squamous metaplasticcells (endocervical component)are present.[facility] A#[id number] Work Phone: Comment on above:Satisfactory for evaluation. Endocervical and/or squamous metaplasticcells (endocervical component)are present.05-06-2021 NotePap Smear Specimen AdequacyMarch 2021 2:55pmComment Satisfactory for evaluation. Endocervical and/or squamous metaplasticcells (endocervical component)are present.[facility] A#[id number] Work Phone: Comment on above:Satisfactory for evaluation. Endocervical and/or squamous metaplasticcells (endocervical component)are present.05-06-2021 NotePap Smear Specimen AdequacyMarch 2021 2:55pmComment Satisfactory for evaluation. Endocervical and/or squamous metaplasticcells (endocervical component)are present.[facility] A#[id number] Work Phone: Comment on above:Satisfactory for evaluation. Endocervical and/or squamous metaplasticcells (endocervical component)are present.Consult note Author Per Orozco [facility] February 05, 2023 5:50pm Note Date/Time February 05, 2023 5:50pm [facility] Medical Records Department [address] [place] [address] Consultation - Surgical 02/05/23 1748 MR#: [id number] Acct: [id number] Name: LAQUITA CHOUDHURY Rep #:[id number] : 1975 47 From: Per conn MD PCP: Dr. Chris Rosa MD Status:AD M IN [id number] Assessment & Plan Assessment/Plan (1) Acute gallstone pancreatitis: PLAN: The patient has elevated LFTs and on imaging she has pericholecystic fluid. She underwent sleeve gastrectomy in the past. The patient also has elevated lipase and pancreatic head prominence. This indicates the patient likely has gallstone pancreatitis. I recommend admission and antibiotics and treatment of the pancreatitis by the medicine team and consult GI for ERCP with stone removal. I am out of town starting Monday of this week but one of my partners will be available to perform a laparoscopic cholecystectomy once the pancreatitis resolves during this hospital visit. Per Orozco MD Pager: [facility] [address] [place] [address] Outpatient [place], [address] [place] [address] Office: HPI Consult Data Date of Consult: 02/05/23 HPI Narrative HPI Narrative: LQAUITA CHOUDHURY, is a 47 F who presents with epigastric pain. Patient notes that the pain started approximately 6 days ago. It has been getting worse and today it was unbearable and she had to come to the emergency room. She denies fevers or chills but she does states she has been seeing yellowing of the skin. She has never had gallbladder issues in the past. She has had a gastric sleeve in the past. [facility] Medical History Alcohol use Asthma Non-smoker Postoperative primary hypothyroidism Thyroid cancer Thyroid disease Wears contact lenses Home Medications multivitamin,[id number] (Complete Multivitamin tablet) 1 tab PO DAILY supplement 05/02/18 [History Last Taken Unknown] cholecalciferol (vitamin D3) 50 mcg (2,000 unit) capsule 50 mcg PO DAILY supplement 05/04/20 [History Last Taken Unknown] albuterol sulfate 90 mcg/actuation breath activated powder inhaler,sensor (Proair Digihaler) 2 inh inhalation Q6H asthma 08/14/20 [History Last Taken Unknown] duloxetine 60 mg capsule,delayed release (Cymbalta) 60 mg PO DAILY 03/03/22 [History Last Taken Unknown] biotin 5,000 mcg sublingual tablet 5,000 mcg sublingual DAILY 06/13/22 [History Last Taken Unknown] calcium carbonate 400 mg calcium (1,000 mg) chewable tablet (Antacid Ultra Strength) 400 mg PO DAILY 06/13/22 [History Last Taken Unknown] cetirizine 10 mg capsule (All Day Allergy (cetirizine)) 10 mg PO DAILY PRN 06/13/22 [History Last Taken Unknown] clotrimazole 1 % topical cream 1 applic topical BID 14 days #30 grams 06/13/22 [Rx Last Taken Unknown] mecobalamin (vitamin B12) 500 mcg chewable tablet mcg PO 06/13/22 [History Last Taken Unknown] omeprazole 10 mg capsule,delayed release 10 mg PO DAILY 06/13/22 [History Last Taken Unknown] ursodiol 300 mg capsule 300 mg PO BID 06/13/22 [History Last Taken Unknown] levothyroxine 150 mcg tablet 150 mcg PO .M-F #90 tabs 08/04/22 [Rx Last Taken Unknown] Allergy/AdvReac Type Severity Reaction Status Date / Time No Known Allergies Allergy Verified 02/05/23 13:40 Surgical History H/O gastric sleeve H/O total thyroidectomy with radical neck dissection History of ankle surgery History of dilation and curettage History of ovarian cystectomy History of tonsillectomy Hx of appendectomy Social History Smoking Status: Never smoker alcohol intake: never substance use type: does not use caffeine: Yes what type of physical activity do you participate in: walking seatbelt use: always do you feel safe at home: Yes 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 [employer] Constitutional Constitutional: Denies anorexia, chills or fatigue Eyes Eyes: Denies blurry vision ENT HEENT: Denies abnormal hearing Cardiovascular Cardiovascular: Denies chest pain Respiratory/Chest Respiratory/Chest: Denies cough or dyspnea Gastrointestinal Gastrointestinal: Reports abdominal pain; Denies nausea or vomiting Genitourinary Genitourinary: Denies change in urinary stream Musculoskeletal Musculoskeletal: Denies abnormal gait Integumentary Integumentary: Reports jaundice Neurologic Neurologic: Denies abnormal gait Psychiatric Psychiatric: Denies anxiety Endocrine Endocrinology: Denies heat intolerance Lab / Micro Data 02/05/23 14:15 02/05/23 14:15 Labs: Laboratory Results - last 24 hr 02/05/23 13:45: Urine Color Adrianne, Urine Clarity Sl. Cloudy, Urine pH 5.0, Ur Specific [place] 1.025, Urine Protein 30 H, Urine Glucose (UA) Normal, Urine Ketones 50 H, Urine Occult Blood 250 H, Urine Nitrite Positive H, Urine Bilirubin 6 H, Urine Urobilinogen 8 H, Ur Leukocyte Esterase 100 H, Urine RBC 5-10 SEEN, Urine WBC 0- 5 SEEN, Ur Squamous Epith Cells 0-5 SEEN, Urine Bacteria 1+, Urine Mucus 0 SEEN 02/05/23 14:15: WBC 7.3, RBC 4.42, Hgb 13.0, Hct 39.8, MCV 90.0, MCH 29.4, MCHC 32.7, RDW Std Deviation 43.3, RDW Coeff of Mihir 13.1, Plt Count 217, MPV 11.8, Immature Gran % (Auto) 0.300, Neut % (Auto) 78.4 H, Lymph % (Auto) 13.6 L, Fergus % (Auto) 6.5, Eos % (Auto) 1.1, Baso % (Auto) 0.1, Absolute Neuts (auto) 5.7, Absolute Lymphs (auto) 0.99, Nucleated RBC % 0, Sodium 138, Potassium 3.9, Chloride 106, Carbon Dioxide 27.0, Anion Gap 5, BUN 14, Creatinine 0.75, Est GFR(MDRD) Af Amer 106, Est GFR (MDRD) Non-Af 88, BUN/Creatinine Ratio 18.6, Alrslks191 H, Calcium 9.6, Total Bilirubin 3.20 H, AST 100 H, ALT 221 H, Alkaline Phosphatase 372 H, Total Protein 7.0, Albumin 3.2, Globulin 3.8, Albumin/Globulin Ratio 0.8 L, Lipase 3086 H [facility] Impression Abdomen/Pelvis CT 02/05/23 15:17 IMPRESSION: 1. Trace pericholecystic fluid. Correlate clinically. Consider gallbladder ultrasound if clinically warranted. 2. Mild enlargement of the pancreatic head and uncinate without discrete mass. Consider follow-up multiphase CT or MRI of the pancreas. 3. Uterine fibroids. Electronically Signed: Tamika Norris MD at 16:33 EST Reading Location ID and State: [id number] / Tel , Service support , 02/05/23 1750 <Electronically signed by Per Orozco MD> Cosigner Signature (if applicable): CC: Dr. Chris Rosa MD~ Signed [facility] Work Phone: Evaluation note* Diagnosis Onset Date Resolution Status Papillary thyroid carcinoma acute Postoperative primary hypothyroidism acute Papillary thyroid carcinoma acute [facility] Work Phone: Evaluation note* Diagnosis Onset Date Resolution Status Papillary thyroid carcinoma acute [facility] Work Phone: evaluation noteNo assessment information available [facility] Work Phone: evaluation note* Diagnosis Onset Date Resolution Status Papillary thyroid carcinoma acute Postoperative primary hypothyroidism acute [facility] Work Phone: evaluation note* Diagnosis Morbid obesity due to excess calories (HCC) Pre-diabetes Other abnormal glucose GERD without esophagitis Esophageal reflux Pre-operative laboratory examination Pre-procedural laboratory examination Morbid (severe) obesity due to excess calories (HCC) documented in this encounter [facility] [employer] [facility]* Diagnosis Morbid obesity with BMI of 45.0-49.9, adult (CMS/HCC) (HCC)- Primary Morbid (severe) obesity due to excess calories (HCC) documented in this encounter [facility] [employer] note* Diagnosis Morbid obesity with BMI of 45.0-49.9, adult (HCC)- Primary Morbid obesity with BMI of 45.0-49.9, adult (HCC) Morbid (severe) obesity due to excess calories (HCC) Pre-diabetes Other abnormal glucose Morbid obesity due to excess calories (HCC) Postoperative hypothyroidism Postsurgical hypothyroidism documented in this encounter [facility] [employer] [facility]* Diagnosis Pre-diabetes- Primary Other abnormal glucose Hiatal hernia Diaphragmatic hernia without mention of obstruction or gangrene GERD without esophagitis Esophageal reflux Morbid obesity with BMI of 45.0-49.9, adult (HCC) documented in this encounter [facility] [employer] [facility]* Diagnosis Hypothyroidism, unspecified type- Primary Morbid obesity with BMI of 40.0-44.9, adult (HCC) 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 documented in this encounter [facility] [employer] [facility]* Diagnosis Heartburn- Primary Generalized abdominal pain Abdominal pain, generalized Heartburn Generalized abdominal pain Abdominal pain, generalized documented in this encounter [facility] [employer] note* Diagnosis Iron deficiency anemia, unspecified iron deficiency anemia type- Primary Hypokalemia Hypopotassemia documented in this encounter [facility] [employer] note* Diagnosis Iron deficiency anemia, unspecified iron deficiency anemia type- Primary Hypokalemia Hypopotassemia documented in this encounter [facility] [employer] note* Diagnosis Hypokalemia- Primary Hypopotassemia Hypothyroidism, unspecified type 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 Class 2 severe obesity due to excess calories with serious comorbidity and body mass index (BMI) of 39.0 to 39.9 in adult ([facility]) documented in this encounter [facility] note* Diagnosis Onset Date Resolution Status MEN 2 (multiple endocrine neoplasia, type 2) acute Encounter for routine gynecological examination noneactive [facility] Work Phone: evaluation note* Diagnosis Hypothyroidism, unspecified type- Primary 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 Class 2 severe obesity due to excess calories with serious comorbidity and body mass index (BMI) of 36.0 to 36.9 in adult ([facility]) Iron deficiency anemia, unspecified iron deficiency anemia type [facility]* Diagnosis Onset Date Resolution Status Back pain acute Segmental and somatic dysfunction of cervical region acute Segmental and somatic dysfunction of lumbar region acute Segmental and somatic dysfunction of thoracic region acute Back pain acute Segmental and somatic dysfunction of cervical region acute Segmental and somatic dysfunction of lumbar region acute Segmental and somatic dysfunction of thoracic region acute Back pain acute Segmental and somatic dysfunction of cervical region acute Segmental and somatic dysfunction of lumbar region acute Segmental and somatic dysfunction of thoracic region acute Back pain acute Segmental and somatic dysfunction of cervical region acute Segmental and somatic dysfunction of lumbar region acute Segmental and somatic dysfunction of thoracic region acute Back pain acute Segmental and somatic dysfunction of cervical region acute Segmental and somatic dysfunction of lumbar region acute Segmental and somatic dysfunction of thoracic region acute [facility] Work Phone: Evaluation note* Diagnosis Hypokalemia- Primary Hypopotassemia Hypothyroidism, unspecified 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 Morbid (severe) obesity due to excess calories ([facility]) Body mass index (BMI) 39.0-39.9, adult Iron deficiency anemia, unspecified documented in this encounter [facility]* Diagnosis Hypothyroidism, unspecified type- Primary 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 Class 2 severe obesity due to excess calories with serious comorbidity and body mass index (BMI) of 36.0 to 36.9 in adult Iron deficiency anemia, unspecified iron deficiency anemia type documented in this encounter [facility]* Diagnosis Low ferritin- Primary Other nonspecific findings on examination of blood 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 Intestinal malabsorption, unspecified type documented in this encounter [facility]* Diagnosis 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 Hypothyroidism, unspecified type Class 1 obesity due to excess calories with body mass index (BMI) of 34.0 to 34.9 in adult, unspecified whether serious comorbidity present [facility] Diagnosis Onset Date Resolution Status Acute gallstone pancreatitis resolved Cholecystitis resolved Choledocholithiasis resolved S/P cholecystectomy acute Papillary thyroid carcinoma chronic Postoperative primary hypothyroidism chronic [facility] Work Phone: Evaluation note* Diagnosis 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 Hypothyroidism, unspecified type Class 1 obesity due to excess calories with body mass index (BMI) of 34.0 to 34.9 in adult, unspecified whether serious comorbidity present [facility]* Diagnosis Hypothyroidism, unspecified type- Primary 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 Pre-diabetes Other abnormal glucose Class 1 obesity due to excess calories with serious comorbidity and body mass index (BMI) of 33.0 to 33.9 in adult documented in this encounter [facility] note* Diagnosis Encounter for screening for malignant neoplasm of colon- Primary Special screening for malignant neoplasms, colon documented in this encounter [facility] note* Diagnosis Encounter for screening colonoscopy- Primary Special screening for malignant neoplasms, colon Encounter for screening for malignant neoplasm of colon Special screening for malignant neoplasms, colon documented in this encounter [facility] note* Diagnosis Onset Date Resolution Status Back pain acute Segmental and somatic dysfunction of cervical region acute Segmental and somatic dysfunction of lumbar region acute Segmental and somatic dysfunction of thoracic region acute Back pain acute Segmental and somatic dysfunction of cervical region acute Segmental and somatic dysfunction of lumbar region acute Segmental and somatic dysfunction of thoracic region acute Back pain acute Segmental and somatic dysfunction of cervical region acute Segmental and somatic dysfunction of lumbar region acute Segmental and somatic dysfunction of thoracic region acute Acute gallstone pancreatitis acute [facility] Work Phone: Evaluation note* Diagnosis Dyspepsia Dyspepsia and other specified disorders of function of stomach Pre-diabetes- Primary Other abnormal glucose BMI 45.0-49.9, adult ([facility]/HCC) (HCC) Class 3 severe obesity with serious comorbidity and body mass index (BMI) of 45.0 to 49.9 in adult, unspecified obesity type (HCC) Dyspepsia Dyspepsia and other specified disorders of function of stomach documented in this encounter [facility] note* Diagnosis Dyspepsia Dyspepsia and other specified disorders of function of stomach documented in this encounter [facility] note* Diagnosis Heartburn Morbid obesity due to excess calories (HCC)- Primary Pre-diabetes Other abnormal glucose Pre-operative clearance Unspecified pre-operative examination documented in this encounter [facility] note* Diagnosis Generalized abdominal pain Abdominal pain, generalized Morbid obesity due to excess calories (HCC)- Primary Pre-diabetes Other abnormal glucose Pre-operative clearance Unspecified pre-operative examination documented in this encounter [facility] note* Diagnosis Morbid obesity due to excess calories (HCC)- Primary Pre-diabetes Other abnormal glucose Pre-operative clearance Unspecified pre-operative examination History of head and neck radiation documented in this encounter [facility] note* Diagnosis Pre-diabetes- Primary Other abnormal glucose Hiatal hernia Diaphragmatic hernia without mention of obstruction or gangrene GERD without esophagitis Esophageal reflux Morbid obesity with BMI of 45.0-49.9, adult (CMS/HCC) (HCC) Morbid (severe) obesity due to excess calories (HCC) documented in this encounter [facility] Discharge instructions* Attachments The following attachments cannot be sent through Care Everywhere. * Upper GI Endoscopy Discharge Instructions ([place]) [facility] Outpatient Procedure (Routine) - Pending Review Specialty Diagnoses / Procedures Referred By Silvano perkins Referred To Contact [facility] Diagnoses Encounter for screening for malignant neoplasm of colon Procedures COLONOSCOPY SCREENING COLONOSCOPY FLX DX W/COLLJ SPEC WHEN Robert Hargrove MD [address] [place] [address] [facility] [place] [address] [place] [address] Referral ID Status Reason Start Date Expiration Date Visits Requested Visits Authorized [id number] Pending Review Auto-Generat ed Referral 06/15/2023 06/14/2024 1 1 [facility] for referral (narrative)* Outpatient Procedure (Routine) - Closed Specialty Diagnoses / Procedures Referred By Silvano perkins Referred To Contact [facility] Diagnoses Encounter for screening for malignant neoplasm of colon Procedures COLONOSCOPY SCREENING COLONOSCOPY FLX DX W/COLLJ SPEC WHEN Robert Hargrove MD [address] [place] [address] Robert Johnson MD [address] [place] [address] Referral ID Status Reason Start Date Expiration Date V isits Requested Visits Authorized [id number] Closed Auto-Generate d Referral 07/24/2023 10/21/2023 1 1 [facility]No reason for referral information availableWUniversity [facility] Work Phone: Reason for visit Narrative* Outpatient Procedure (Routine) - Closed Specialty Diagnoses / Procedures Referred By Silvano perkins Referred To Contact [facility] Diagnoses Encounter for screening for malignant neoplasm of colon Procedures COLONOSCOPY SCREENING COLONOSCOPY FLX DX W/COLLJ SPEC WHEN PFRMD Robert Johnson MD [address] [facility] [place] [address] Robert Johnson MD [address] [facility] [address] Referral ID Status Reason Start Date Expiration Date V isits Requested Visits Authorized [id number] Closed Auto-Generate d Referral 07/24/2023 10/21/2023 1 1 [facility] Chief Complaint and Reason for Visit Chief Complaint 6 M FU SCREENING 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) Reason for Visit Papillary thyroid ca rcinoma Postoperative primary hypothyroidism Papillary thyroid carcinoma Chief Complaint SCREENING 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) OBESITY Reason for Visit Papillary thyroid ca rcinoma Chief Complaint OBESITY Chief Complaint 1 Y FU Chief Complaint 1 Y FU Reason for Visit Papillary thyroid ca rcinoma Postoperative primary hypothyroidism Chief Complaint 1 Y FU SCREENING Reason for Visit Papillary thyroid ca rcinoma Postoperative primary hypothyroidism Chief Complaint SCREENING 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) Reason for Visit MEN 2 (multiple endo crine neoplasia, type 2) Encounter for routine gynecological examination Chief Complaint EST CARE Back pain Back pain Back pain Back pain Reason for Visit Back pain Segmental and somatic dysfunction of cervical region Segmental and somatic dysfunction of lumbar region Segmental and somatic dysfunction of thoracic region Back pain Segmental and somatic dysfunction of cervical region Segmental and somatic dysfunction of lumbar region Segmental and somatic dysfunction of thoracic region Back pain Segmental and somatic dysfunction of cervical region Segmental and somatic dysfunction of lumbar region Segmental and somatic dysfunction of thoracic region Back pain Segmental and somatic dysfunction of cervical region Segmental and somatic dysfunction of lumbar region Segmental and somatic dysfunction of thoracic region Back pain Segmental and somatic dysfunction of cervical region Segmental and somatic dysfunction of lumbar region Segmental and somatic dysfunction of thoracic region Chief Complaint GALL STONE PANCRETIT IS GALL STONE PANCRETITIS GALL STONE PANCRETITIS GALL STONE PANCRETITIS GALL STONE PANCRETITIS AM EKG GALL STONE PANCRETITIS GALL STONE PANCRETITIS GALL STONE PANCRETITIS GALL STONE PANCRETITIS GALL STONE PANCRETITIS GALL STONE PANCRETITIS GALL STONE PANCRETITIS GALL STONE PANCRETITIS Gallstone pancreatitis 12-21 1 Y FU COUGH/CONGESTION Reason for Visit Acute gallstone panc reatitis Cholecystitis Choledocholithiasis S/P cholecystectomy Papillary thyroid carcinoma Postoperative primary hypothyroidism Chief Complaint Back pain Back pain Back pain GALL STONE PANCRETITIS GALL STONE PANCRETITIS Reason for Visit Back pain Segmental and somatic dysfunction of cervical region Segmental and somatic dysfunction of lumbar region Segmental and somatic dysfunction of thoracic region Back pain Segmental and somatic dysfunction of cervical region Segmental and somatic dysfunction of lumbar region Segmental and somatic dysfunction of thoracic region Back pain Segmental and somatic dysfunction of cervical region Segmental and somatic dysfunction of lumbar region Segmental and somatic dysfunction of thoracic region Acute gallstone pancreatitis Chief Complaint Admit Date 1 Y FU March 01, 2024 2 :57pm Reason for Visit Admit Date Papillary thyroid carcinoma February 2:57pm Postoperative primary hypothyroidism Alfredito thomas 2024 2:57pm Chief Complaint Admit Date 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) June 19, 2024 1:3 2pm ENLARGED UTERUS June 25, 2024 4:11pm Reason for Visit Admit Date Enlarged uterus June 19, 2024 1:3 2pm Encounter for routine gynecological exam ination June 19, 2024 1:32pm Chief Complaint Admit Date 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) June 19, 2024 1:3 2pm ENLARGED UTERUS June 25, 2024 4:11pm screening mammogram August 05, 2024 3:53 pm Chief Complaint Admit Date 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) June 19, 2024 1:3 2pm ENLARGED UTERUS June 25, 2024 4:11pm screening mammogram August 05, 2024 3:53 pm NEW ONSET AM VERTIGO, HX OF MALIGNANT TH YROID October 09, 2024 4:40pm Advance Directives No Advanced Directives Records Found Advance Directive Response Recorded Date/ Time Living Will No August 17, 2020 3:06pm Power of Animal Care Technician No August 17 3:06pm Advance Directive Response Recorded Date/ Time Living Will No August 17, 2020 2:06pm Power of Animal Care Technician No August 17 2:06pm Latest Code Status on File Code Status Date Activated Date Inactivated Comments Full Code 05/24/2022 6:06 PM 05/25/2022 4:49 PM Code Status History Code Status Date Activated Date Inactivated Comments Full Code 05/24/2022 8:33 AM 05/24/2022 6:06 PM Latest Code Status on File Code Status Date Activated Date Inactivated Comments Full Code 05/24/2022 6:06 PM 05/25/2022 4:49 PM Code Status History Code Status Date Activated Date Inactivated Comments Full Code 05/24/2022 8:33 AM 05/24/2022 6:06 PM Documents on File Type Date Recorded 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 No February 05, 2023 8:44pm Summary Purpose Family History No Family History Records FoundNo Family History Records FoundNo Family History Records FoundNo Family History Records Found Reason for Referral Specialty Diagnoses / Procedures Referred By Contac t Referred To Contact Cardiology Diagnoses Pre-diabetes Pre-operative clearance History of head and neck radiation Procedures Vascular US carotid artery duplex bilateral Kristen Marcus MD [address] [address] Referral ID Status Reason Start Date Expiration Date Visits Requested Visits Authorized [id number] Pending Review Perform Procedure 03/28/2022 09/24/2022 1 1 Additional Source Comments Goals (unrecognized section and content) Goals may be documented in a n alternate sectionGoals may be documented in an alternate sectionGoals may be documented in an alternate sectionGoals may be documented in an alternate sectionGoals may be documented in an alternate sectionGoals may be documented in an alternate sectionGoals may be documented in an alternate sectionGoals may be documented in an alternate sectionGoals may be documented in an alternate sectionGoals may be documented in an alternate sectionGoals may be documented in an alternate sectionGoals may be documented in an alternate section INFORMATION SOURCE (unrecogn ized section and content) DATE CREATED AUTHOR 11/16/2021 [facility] DATE CREATED AUTHOR AUTHOR'S ORGANIZ ATION 06/24/2023 [facility] DATE CREATED AUTHOR AUTHOR'S ORGANIZ ATION 12/28/[address] [facility] DATE CREATED AUTHOR AUTHOR'S ORGANIZ ATION 11/08/2024 [facility] Care Teams (unrecognized sec tion and content) Metal Casket Assembler Relationship Specialty Start Date End Date Chris Rosa MD [address] [address] PCP - General Family Medicine 09/17/21 Team Status: Active Member Role Status Dates Dr. Chris Rosa MD Family Provider Active Dr. Chris Rosa MD Primary Care Provider Active Team Status: Inactive Member Role Status Dates Dr. Chris Rosa MD Primary Care Provider, Referr ing Provider Active Dr. Vicente Adorno MD Attending Provider Active Team Status: Inactive Member Role Status Dates Dr. Chris Rosa MD Primary Care Provider Active Radha Rodriguez NP-C Attending Provider, Referring Pr ovider Active Team Status: Inactive Member Role Status Dates Dr. Chris Rosa MD Primary Care Pr ovidavery, Attending Provider, Referring Provider Active Team Status: Inactive Member Role Status Dates Dr. Chris Rosa MD Primary Care Provider Active Dr. Vicente Adorno MD Attending Provider, Referring Provi jade Active Team Status: Inactive Member Role Status Dates Dr. Chris Rosa MD Primary Care Provider Active Ekaterina Wharton NP CELLAR WORKER-C Attending Provider, Referring Pr ovider Active Metal Casket Assembler Relationship Specialty Start Date End Date Chris Rosa MD [address] [facility] [address] [place] [phone] PCP - General 09/17/21 Mary Chau, RN Registered Nurse 04/18/22 Jarrod Collazo MD [address] [place], [place] [id number] Surgeon General Surgery 04/25/22 Metal Casket Assembler Relationship Specialty Start Date End Date Chris Rosa MD [address] [facility] [address] [place] [phone] PCP - General 09/17/21 Mary Chau, RN Registered Nurse 04/18/22 Jarrod Collazo MD [address] [facility] [address] [place], [place] [id number] Surgeon General Surgery 04/25/22 Metal Casket Assembler Relationship Specialty Start Date End Date Chris Rosa MD [address] [facility] [address] [place] [phone] PCP - General 09/17/21 Mary Chau, RN Registered Nurse 04/18/22 Jarrod Collazo MD [address] [facility] [address] [place], [place] [id number] Surgeon General Surgery 04/25/22 Metal Casket Assembler Relationship Specialty Start Date End Date Chris Rosa MD [address] [facility] [address] [place] [phone] PCP - General 09/17/21 Mary Chau, RN Registered Nurse 04/18/22 Jarrod Collazo MD [address] [place] [address] Surgeon General Surgery 04/25/22 Metal Casket Assembler Relationship Specialty Start Date End Date Chris Rosa MD [address] [facility] [address] [place] [phone] PCP - General 09/17/21 Mary Chau, RN Registered Nurse 04/18/22 Jarrod Collazo MD [address] [place] [address] Surgeon General Surgery 04/25/22 Metal Casket Assembler Relationship Specialty Start Date End Date Chris Rosa MD [address] [facility] [address] [place] [address] PCP - General 09/17/21 Mary Chau, RN Registered Nurse 04/18/22 Jarord Collazo MD [address] [facility] [address] [place], [place] [id number] Surgeon General Surgery 04/25/22 Team Status: Inactive Member Role Status Dates Dr. Chris Rosa MD Primary Care Provider Active Dr. Kenzie Bonilla MD Attending Provider, Referr ing Provider Active Metal Casket Assembler Relationship Specialty Start Date End Date Chris Rosa MD [address] [facility] [address] [place] [phone] PCP - General 09/17/21 Mary Chau, RN Registered Nurse 04/18/22 Jarrod Collazo MD [address] [place] [address] Surgeon General Surgery 04/25/22 Metal Casket Assembler Relationship Specialty Start Date End Date Chris Rosa MD [address] [facility] [address] [place] [phone] PCP - General 09/17/21 Mary Chau, RN Registered Nurse 04/18/22 Jarrod Collazo MD [address] [place], [place] [id number] Surgeon General Surgery 04/25/22 Team Status: Inactive Member Role Status Dates Dr. Chris Rosa MD Primary Care Provider, Referr ing Provider Active Dr. Kenzie Bonilla MD Attending Provider Active Team Status: Active Member Role Status Dates Dr. Chris Rosa MD Primary Care Provider Active Dr. Vicente Adorno MD Attending Provider, Referring Provi jade Active Metal Casket Assembler Relationship Specialty Start Date End Date Chris Rosa MD [address] [place] [phone] PCP - General 09/17/21 Mary Chau, RN Registered Nurse 04/18/22 Jarrod Collazo MD [address] [place] [address] [address] [place] [address] Surgeon General Surgery 04/25/22 Metal Casket Assembler Relationship Specialty Start Date End Date Chris Rosa MD [address] [place] [phone] PCP - General 09/17/21 Mary Chau, RN Registered Nurse 04/18/22 Jarrod Collazo MD [address] [facility] [address] [place] [address] Surgeon General Surgery 04/25/22 Metal Casket Assembler Relationship Specialty Start Date End Date Chris Rosa MD [address] [facility] [address] [place] [phone] PCP - General 09/17/21 Mary Chau, RN Registered Nurse 04/18/22 Jarrod Collazo MD [address] [place], [place] [id number] Surgeon General Surgery 04/25/22 Team Status: Inactive Member Role Status Dates Dr. Chris Rosa MD Primary Care Provider, Referr ing Provider Active Dr. Marylu Hoffmann DC Attending Provider Active Team Status: Inactive Member Role Status Dates Dr. Chris Rosa MD Primary Care Provider, Attend ing Provider Active Metal Casket Assembler Relationship Specialty Start Date End Date Chris Rosa MD [address] [place] [phone] PCP - General 09/17/21 Mary Chau, RN Registered Nurse 04/18/22 Jarrod Collazo MD [address] [place], [place] [id number] Surgeon General Surgery 04/25/22 Metal Casket Assembler Relationship Specialty Start Date End Date Chris Rosa MD [address] [place] [phone] PCP - General 09/17/21 Mary Chau, RN Registered Nurse 04/18/22 Jarrod Collazo MD [address] [place] [address] Surgeon General Surgery 04/25/22 Metal Casket Assembler Relationship Specialty Start Date End Date Chris Rosa MD [address] [place] [phone] PCP - General 09/17/21 Mary Chau, RN Registered Nurse 04/18/22 Jarrod Collazo MD [address] [place], [place] [id number] Surgeon General Surgery 04/25/22 Metal Casket Assembler Relationship Specialty Start Date End Date Chris Rosa MD [address] [place] [address] PCP - General 09/17/21 Mary Chau, RN Registered Nurse 04/18/22 Jarrod Collazo MD [address] [place] [address] [address] [place] [address] Surgeon General Surgery 04/25/22 Team Status: Active Member Role Status Dates Dr. Chris Rosa MD Primary Care Provider Active Dr. Rell Seymour , Emergency Provider Active Dr. Bert López MD Admit Provider, Other Provider Active Dr. Per Orozco MD Attending Provider Active Dr. Rell Baldwin DO Referring Provider Active Team Status: Active Member Role Status Dates Dr. Chris Rosa MD Primary Care Provider Active Dr. Rell Seymour DO Emergency Provider Active Dr. Bert López MD Admit Provider, Other Provider Active Dr. Per Orozco MD Attending Provider, Other Provider Active Dr. Rell Baldwin DO Other Provider Active Team Status: Active Member Role Status Dates Dr. Chris Rosa MD Primary Care Provider Active Dr. Rell Seymour DO Emergency Provider Active Dr. Bert López MD Admit Provider, Other Provider Active Dr. Per Orozco MD Other Provider Active Dr. Rell Baldwin DO Attending Provider, Other Provid er Active Team Status: Active Member Role Status Dates Dr. Chris Rosa MD Primary Care Provider Active Dr. Rell Seymour DO Emergency Provider Active Dr. Bert López MD Admit Provider, Other Provider Active Dr. Per Orozco MD Other Provider Active Dr. Rell Baldwin DO Referring Provider, Other Provid er Active Dr. Jose Irby , DO Attending Provider Active Team Status: Active Member Role Status Dates Dr. Chris Rosa MD Primary Care Provider Active Dr. Jose Irby , DO Attending Provider Active Dr. Rell Baldwin DO Referring Provider Active Team Status: Active Member Role Status Dates Dr. Chris Rosa MD Primary Care Provider Active Dr. Rell Seymour DO Emergency Provider Active Dr. Bert López MD Admit Provider, Other Provider Active Dr. Per Orozco MD Other Provider Active Dr. Rell Baldwin DO Other Provider Active Dr. Kay Gross MD Active Dr. Grey Flores MD Attending Provider Active Team Status: Active Member Role Status Dates Dr. Chris Rosa MD Primary Care Provider Active Dr. Rell Seymour DO Emergency Provider Active Dr. Bert López MD Admit Provider, Other Provider Active Dr. Per Orozco MD Other Provider Active Dr. Rell Baldwin DO Other Provider Active Dr. Grey Flores MD Attending Provider Active Team Status: Active Member Role Status Dates Dr. Chris Rosa MD Primary Care Provider Active Dr. Rell Seymour DO Emergency Provider Active Dr. Bert López MD Admit Provider, Other Provider Active Dr. Per Orozco MD Other Provider Active Dr. Rell Baldwin DO Other Provider Active Aisha JONES PA-C Attending Provider Active Team Status: Active Member Role Status Dates Dr. Chris Rosa MD Primary Care Provider Active Dr. Jose Irby DO Attending Provider Active Team Status: Active Member Role Status Dates Dr. Chris Rosa MD Primary Care Provider Active Dr. Carlos Arias MD Attending Provider Active Dr. Bert López MD Referring Provider Active Team Status: Inactive Member Role Status Dates Dr. Chris Rosa MD Primary Care Provider, Referr ing Provider Active Dr. Grey Flores MD Attending Provider Active Team Status: Inactive Member Role Status Dates Dr. Chris Rosa MD Primary Care Provider, Referr ing Provider Active Rl Breen PA, PA Attending Provider Active Team Status: Active Member Role Status Dates Dr. Chris Rosa MD Primary Care Provider Active Dr. Jose Irby DO Attending Provid er, Referring Provider, Other Provider Active Team Status: Inactive Member Role Status Dates Dr. Chris Rosa MD Primary Care Provider Active Dr. Rell Seymour DO Emergency Provider Active Dr. Bert óLpez MD Admit Provider, Other Provider Active Dr. Per Orozco MD Other Provider Active Dr. Rell Baldwin DO Attending Provider Active Team Status: Inactive Member Role Status Dates Dr. Chris Rosa MD Primary Care Provider Active Dr. Jose Irby DO Attending Provider, Referring Provider Active Metal Casket Assembler Relationship Specialty Start Date End Date Chris Rosa MD [address] [place] [phone] PCP - General 09/17/21 Mary Chau, RN Registered Nurse 04/18/22 Jarrod Collazo MD [address] [place] [address] [address] [place] [address] Surgeon General Surgery 04/25/22 Metal Casket Assembler Relationship Specialty Start Date End Date Chris Rosa MD [address] [facility] [address] [place] [address] PCP - General Family Medicine 07/23/20 Metal Casket Assembler Relationship Specialty Start Date End Date Chris Rosa MD [address] [facility] [address] [place] [address] PCP - General Family Medicine 07/23/20 Metal Casket Assembler Relationship Specialty Start Date End Date Chris Rosa MD [address] [facility] [address] [place] [address] PCP - General Family Medicine 07/23/20 Team Status: Active Member Role Status Dates Dr. Chris Rosa MD Primary Care Provider Active Dr. Rell Seymour , DO Emergency Provider Active Dr. Bert López MD Admit Provider, Other Provider Active Dr. Per Orozco MD Attending Provider Active Team Status: Active Member Role Status Dates Dr. Chris Rosa MD Primary Care Provider Active Dr. Rell Seymour , DO Emergency Provider Active Dr. Bert López MD Admit Provider, Attending Provi jade Active Metal Casket Assembler Relationship Specialty Start Date End Date Chris Rosa MD [address] [place] [phone] PCP - General 09/17/21 Metal Casket Assembler Relationship Specialty Start Date End Date Chris Rosa MD [address] [facility] [address] [place] [phone] PCP - General 09/17/21 Metal Casket Assembler Relationship Specialty Start Date End Date Chris Rosa MD [address] [facility] [address] [place] [phone] PCP - General 09/17/21 Metal Casket Assembler Relationship Specialty Start Date End Date Chris Rosa MD [address] [facility] [address] [place] [phone] PCP - General 09/17/21 Metal Casket Assembler Relationship Specialty Start Date End Date Chris Rosa MD [address] [facility] [address] [place] [phone] PCP - General 09/17/21 Metal Casket Assembler Relationship Specialty Start Date End Date Chris Rosa MD [address] [facility] [address] [place] [phone] PCP - General 09/17/21 Metal Casket Assembler Relationship Specialty Start Date End Date Chris Rosa MD [address] [facility] [address] [place] [phone] PCP - General 09/17/21 Metal Casket Assembler Relationship Specialty Start Date End Date Chris Rosa MD [address] [facility] [address] [place] [phone] PCP - General 09/17/21 Metal Casket Assembler Relationship Specialty Start Date End Date Chris Rosa MD [address] [facility] [address] [place] [phone] PCP - General 09/17/21 Mary Chau, RN Registered Nurse 04/18/22 Jarrod Collazo MD [address] [facility] [address] [place] [address] Surgeon General Surgery 04/25/22 Metal Casket Assembler Relationship Specialty Start Date End Date Chris Rosa MD [address] [phone] PCP - General 09/17/21 Mary Chau, RN Registered Nurse 04/18/22 Jarord Collazo MD [address] [facility] [address] [place] [address] Surgeon General Surgery 04/25/22 Team Status: Inactive Member Role Status Dates Dr. Chris Rosa MD Primary Care Provider Active Start: February 20, 2024 End: February 20, 2024 Dr. Vicente Adorno MD Attending Provider Active Sta rt: February 20, 2024 End: February 20, 2024 Dr. Vicente Adorno MD Referring Provider Active Sta rt: February 20, 2024 End: February 20, 2024 Team Status: Inactive Member Role Status Dates Dr. Chris Rosa MD Primary Care Provider Active Start: March 01, 2024 End: March 01, 2024 Dr. Chris Rosa MD Referring Provider Active Start: March 01, 2024 End: March 01, 2024 Dr. Vicente Adorno MD Attending Provider Active Sta rt: March 01, 2024 End: March 01, 2024 Team Status: Inactive Member Role Status Dates Dr. Chris Rosa MD Primary Care Provider Active Start: May 07, 2024 End: May 07, 2024 Dr. Chris Rosa MD Attending Provider Active Start: May 07, 2024 End: May 07, 2024 Dr. Chris Rosa MD Referring Provider Active Start: May 07, 2024 End: May 07, 2024 Team Status: Active Member Role Status Dates Dr. Chris Rosa MD Primary Care Provider Active Team Status: Inactive Member Role Status Dates Dr. Chris Rosa MD Primary Care Provider Active Start: June 19, 2024 End: June 19, 2024 Dr. Chris Rosa MD Referring Provider Active Start: June 19, 2024 End: June 19, 2024 Dr. Kenzie Bonilla MD Attending Provider Active Start: June 19, 2024 End: June 19, 2024 Team Status: Inactive Member Role Status Dates Dr. Chris Rosa MD Primary Care Provider Active Start: June 25, 2024 End: June 25, 2024 Dr. Kenzie Bonilla MD Attending Provider Active Start: June 25, 2024 End: June 25, 2024 Dr. Kenzie Bonilla MD Referring Provider Active Start: June 25, 2024 End: June 25, 2024 Team Status: Inactive Member Role Status Dates Dr. Chris Rosa MD Primary Care Provider Active Start: August 05, 2024 End: August 05, 2024 Dr. Kenzie Bonilla MD Attending Provider Active Start: August 05, 2024 End: August 05, 2024 Dr. Kenzie Bonilla MD Referring Provider Active Start: August 05, 2024 End: August 05, 2024 Team Status: Active Member Role/Relationship Status Dates Dr. Chris Rosa MD Primary Care Provider Active Team Status: Inactive Member Role/Relationship Status Dates Dr. Chris Rosa MD Primary Care Provider Active Start: June 19, 2024 End: June 19, 2024 Dr. Chris Rosa MD Referring Provider Active Start: June 19, 2024 End: June 19, 2024 Dr. Kenzie Bonilla MD Attending Provider Active Start: June 19, 2024 End: June 19, 2024 Team Status: Inactive Member Role/Relationship Status Dates Dr. Chris Rosa MD Primary Care Provider Active Start: June 25, 2024 End: June 25, 2024 Dr. Kenzie Bonilla MD Attending Provider Active Start: June 25, 2024 End: June 25, 2024 Dr. Kenzie Bonilla MD Referring Provider Active Start: June 25, 2024 End: June 25, 2024 Team Status: Inactive Member Role/Relationship Status Dates Dr. Chris Rosa MD Primary Care Provider Active Start: August 05, 2024 End: August 05, 2024 Dr. Kenzie Bonilla MD Attending Provider Active Start: August 05, 2024 End: August 05, 2024 Dr. Kenzie Bonilla MD Referring Provider Active Start: August 05, 2024 End: August 05, 2024 Team Status: Inactive Member Role/Relationship Status Dates Dr. Chris Rosa MD Primary Care Provider Active Start: October 09, 2024 End: October 09, 2024 Dr. Rell Aguayo MD Attending Provider Active St art: October 09, 2024 End: October 09, 2024 Dr. Rell Aguayo MD Referring Provider Active St art: October 09, 2024 End: October 09, 2024 Reason for Visit (unrecogniz ed section and content) Specialty Diagnoses / Procedures Referred By Silvano perkins Referred To Contact Diagnoses Morbid (severe) obesity due to excess calories (HCC) Morbid (severe) obesity due to excess calories (HCC) [E66.01] Procedures OH LAPS GSTRC RSTRICTIV PX LONGITUDINAL GASTRECTOMY OH UNLISTED LAPAROSCOPIC PROCEDURE LIVER OH LAPS RPR PARAESPHGL HRNA INCL FUNDPLSTY W/O MESH LAPAROSCOPIC SLEEVE GASTRECTOMY WITH LIVER WEDGE BIOPSY , HIATAL HERNIA REPAIR , POSSOIBLE OPEN UNLISTED LAPAROSCOPIC PROCEDURE LIVER Jarrod Collazo MD [address] [place] [address] [address] [place] [address] [facility] [address] [facility] [place] [address] Referral ID Status Reason Start Date Expiration Date Visits Re quested Visits Authorized [id number] 1 Reason Comments Weight Loss FPOV Reason Comments Bariatrics Post Op Follow-up 1W Reason Onset Date Comments Abnormal Lab 06/23/2022 Reason Comments Bariatrics Post Op Follow-up 1M Reason Onset Date Comments Abnormal Lab 08/30/2022 Reason Comments Bariatrics Post Op Follow-up 3M Reason Onset Date Comments Abnormal Lab 12/21/2022 Low H/H, low nor mal ferritin, iron Reason Comments Bariatrics Post Op Follow-up 7 Month Reason Comments Bariatrics Post Op Follow-up 12M Reason Onset Date Comments Lap rose, ERCP records 06/21/2023 Reason Comments Consult colonoscopy Reason Comments 07/24/2023 COLON ASC Reason Comments Weight Loss D/E 04/22 Specialty Diagnoses / Procedures Referred By Silvano perkins Referred To Contact Diagnoses Dyspepsia Dyspepsia [R10.13] Procedures [place] EGD TRANSORAL BIOPSY SINGLE/MULTIPLE EGD WITH BIOPSY Jarrod Collazo MD [address] [facility] [address] [place] [address] [facility] [address] [place] [address] Referral ID Status Reason Start Date Expiration Date Visits Re quested Visits Authorized [id number] 1 Reason Onset Date Comments Other 03/21/2022 INITIAL SCHEDULI NG NEW EPIC Reason Onset Date Comments Abnormal Lab 03/18/2022 TSH, iron and fe rritin. Reason Comments New Patient Specialty Diagnoses / Procedures Referred By Silvano perkins Referred To Contact Cardiology Diagnoses Postprocedural hypothyroidism Vitamin D deficiency, unspecified Prediabetes Morbid (severe) obesity due to excess calories (HCC) Body mass index (BMI) 40.0-44.9, adult (HCC) Procedures CARDIOLOGY-GENERAL Jarrod Collazo MD [address] [facility] [address] [place] [address] Referral ID Status Reason Start Date Expiration Date Visits Re quested Visits Authorized [id number] Closed 12/04/2021 06/02/2022 1 1 Reason Onset Date Comments Anticoagulation 05/02/2022 Lovenox Scheduled Active and Recently Administ ered Medications (unrecognized section and content) Medication Order 05/23/2022 05/24/2022 05/25/2022 acetaminophen (Tylenol) tablet 1,000 mg (COMPLETED) 1,000 mg, Oral, Once, On Mon05/24/22 at 0845, For 1 dose, Preprocedure, Maximum dose of acetaminophen is 4000 mg from all sources in 24 hours. Do not administer if patient has taken tylenol <4 hours earlier. Do not give if contraindicated ie. patient has active liver disease or cirrhosis. 0847 (Given - Provider: Carline Barroso RN) albuterol (2.5 MG/3ML) 0.083% nebulizer solution 2.5 mg 2.5 mg, Nebulization, 4 times daily, First dose on Mon05/25/22 at 1200 1216 (Given - Provid er: Kylie Martin RCP)1600 (Canceled Entry - Provider: Automatic Discharge Provider - Comment: Automatically canceled at discontinue of medication order) ceFAZolin in dextrose 4% (Ancef) IVPB 2,000 mg (COMPLETED) 2,000 mg, IntraVENous, Administer over 30 Minutes, Disability Manager to O.R., On Mon05/24/22 at 0845, For 1 dose, Preprocedure, Administer within 1 hour prior to incision. Repeat in 3-4 hours after initial dose if still intra-op. Default Settings:Auto-dosed by Weight Disability Manager to O.R x 1 dose Auto-dosed: Pt Wt<119.9kg-2gm, >120kg-3gm premix bag, Suspected Indication (Select all that apply): Surgical Prophylaxis 0948 (Given - Provider: LISSET Patino CRNA)1123 (Anesthesia Volume Adjustment - Provider: LISSET Patino CRNA) celecoxib (CeleBREX) capsule 400 mg (COMPLETED) 400 mg, Oral, Once, On Mon05/24/22 at 0845, For 1 dose, Preprocedure, Avoid with sulfa allergy or creatinine greater than 1.5. Avoid severe hepatic impairment or renal transplant. Avoid if Age > 69. 0846 (Given - Provider: Carline Barroso RN) DULoxetine (Cymbalta) DR capsule 60 mg 60 mg, Oral, Daily, First dose on Mon05/24/22 at 1815, Phase II/On Unit, Do not crush or chew. 1815 (Not Given - Provider: Alisson Meehan RN - Reason: Other - Comment: TOOK AT HOME) 0902 (Given - Provider: Marylu Gutierrez, SERGIO) enoxaparin (Lovenox) syringe 40 mg 40 mg, SubCUTAneous, 2 times daily, First dose on Mon05/24/22 at 2200, Phase II/On Unit, Indication of Use: Prophylaxis-DVT/PE, Indications: Prophylaxis of Venous Thromboembolism 2009 (Given - Provider: Doris Castillo, SERGIO) 0902 (Given - Provider: Marylu Gutierrez, SERGIO) famotidine (Pepcid) tablet 20 mg (COMPLETED) 20 mg, Oral, Once, On Mon05/24/22 at 0845, For 1 dose, Preprocedure 0846 (Given - Provider: Carline Barroso, SERGIO) famotidine (Pepcid) tablet 20 mg 20 mg, Oral, 2 times daily, First dose on Mon05/24/22 at 2100, Phase II/On Unit 2009 (Given - Provider: Doris Castillo RN) 0902 (Given - Provider: Marylu Gutierrez, SERGIO) gabapentin (Neurontin) capsule 100 mg (COMPLETED) 100 mg, Oral, Once, On Mon05/24/22 at 0845, For 1 dose, Preprocedure, For Age >69 or Low GFR. 0846 (Given - Provider: Carline Barroso, SERGIO) heparin injection 5,000 Units (COMPLETED) 5,000 Units, SubCUTAneous, Once, On Mon05/24/22 at 0845, For 1 dose, Preprocedure 0847 (Given - Provider: Carline Barroso, SERGIO) ketorolac (Toradol) injection 15 mg 15 mg, IntraVENous, Every 6 hours, First dose on Mon05/24/22 at 1815, For 12 doses, Phase II/On Unit, Give in addition to any other pain medication ordered at same time for any pain indication. 1844 (Given - Provider: Alisson Meehan RN)2356 (Given - Provider: Doris Castillo RN) 0535 (Given - Provider: Doris Castillo RN)1149 (Given - Provider: Marylu Gutierrez, SERGIO) levothyroxine (Synthroid, Levoxyl) tablet 150 mcg 150 mcg, Oral, Daily before breakfast, First dose on Mon05/25/22 at 0915, Tube feeding (TF) interaction, obtain physician order to manage, recommend holding TF for 30 minutes before and after dose. 0915 (Not Given - Provider: Marylu Gutierrez RN - Reason: Other - Comment: Pt took own med) Continuous Medication Order 05/23/2022 05/24/2022 05/25/2022 dextrose 5 % and sodium chloride 0.9 % with KCl 20 mEq/L infusion 100 mL/hr, IntraVENous, Continuous, Starting on Mon05/24/22 at 1815, Phase II/On Unit 2009 (New Bag - Provider: Doris Castillo RN) 0540 (New Bag - Provider: Doris Castillo RN)0752 (Rate/Dose Verify - Provider: Marylu Gutierrez RN)1150 (Rate/Dose Verify - Provider: Marylu Gutierrez RN) lactated Ringer's (LR) infusion (CANCELED) 50 mL/hr, IntraVENous, Continuous, Starting on Mon05/24/22 at 0845, Preprocedure, Upon admission to sameday - please start iv if patient does not have iv access. Use 500ml NS for patients on dialysis. 0847 (New Bag - Provider: Carline Barroso RN)0932 (Continued by Anesthesia - Provider: Leonela Douglas APRN - NATHANIEL)1108 (Stopped - Provider: LISSET Patino CRNA) PRN Medication Order 05/23/2022 05/24/2022 05/25/2022 HYDROmorphone (Dilaudid) injection 0.25 mg(Linked Group 1) 0.25 mg, IntraVENous, Every 3 hours PRN, moderate pain (4-6), Starting on Mon05/24/22 at 1806, Phase II/On Unit, If oral and IV narcotics ordered, use oral first and only use IV if oral is ineffective or cannot take oral. Do Not give oral and IV within 1 hour of each other unless specifically ordered. HYDROmorphone (Dilaudid) injection 0.5 mg(Linked Group 1) 0.5 mg, IntraVENous, Every 3 hours PRN, severe pain (7-10), Starting on Mon05/24/22 at 1806, Phase II/On Unit, If oral and IV narcotics ordered, use oral first and only use IV if oral is ineffective or cannot take oral. Do Not give oral and IV within 1 hour of each other unless specifically ordered. ondansetron (Zofran) injection 4 mg(Linked Group 2) 4 mg, IntraVENous, Every 6 hours PRN, nausea, vomiting, Starting on Mon05/24/22 at 1806, Phase II/On Unit, 1st Line. Give IV if patient is unable to take orally. If inadequate response within 60 minutes, proceed to next-line agent or contact provider if no further options ordered. ondansetron ODT (Zofran-ODT) disintegrating tablet 4 mg(Linked Group 2) 4 mg, Oral, Every 8 hours PRN, nausea, vomiting, Starting on Mon05/24/22 at 1806, Phase II/On Unit, 1st Line. If inadequate response within 60 minutes, proceed to next-line agent or contact provider if no further options ordered. Patient should allow tablet to dissolve on tongue. Do not remove from blister pack until just before administering. oxyCODONE (Roxicodone) immediate release tablet 5 mg (CANCELED) 5 mg, Oral, Every 4 hours PRN, moderate pain (4-6), Starting on Mon05/24/22 at 1806, Phase II/On Unit 1844 (Given - Provider: Alisson Meehan RN) 0535 (Given - Provider: Doris Castillo RN) oxyCODONE-acetaminophen (Percocet) 5-325 MG per tablet 1 tablet(Linked Group 3) 1 tablet, Oral, Every 4 hours PRN, moderate pain (4-6), Starting on Mon05/25/22 at 0859, Maximum dose of acetaminophen is 4000 mg from all sources in 24 hours. 1149 (Given - Provid er: Marylu Gutierrez RN) oxyCODONE-acetaminophen (Percocet) 5-325 MG per tablet 2 tablet(Linked Group 3) 2 tablet, Oral, Every 4 hours PRN, severe pain (7-10), Starting on Mon05/25/22 at 0859, Maximum dose of acetaminophen is 4000 mg from all sources in 24 hours. 1149 (See Alternativ e - Provider: Marylu Gutierrez RN) sodium chloride 0.9 % irrigation solution (CANCELED) As needed, Starting on Mon05/24/22 at 1023, Intraprocedure 1023 (Given - Provider: Jarrod Collazo MD) sterile water irrigation solution (CANCELED) As needed, Starting on Mon05/24/22 at 1023, Intraprocedure 1023 (Given - Provider: Jarrod Collazo MD - Comment: ON BACK TABLE FOR SCOPES) Linked Groups Order Group 1: HYDROmorphone (Dilaudid) injection 0.25 mgJump to med 0.25 mg, IntraVENous, Every 3 hours PRN, moderate pain (4-6), Starting on Mon05/24/22 at 1806, Phase II/On Unit
If oral and IV narcotics ordered, use oral first and only use IV if oral is ineffective or cannot take oral. Do Not give oral and IV within 1 hour of each other unless specifically ordered.
Or HYDROmorphone (Dilaudid) injection 0.5 mgJump to med 0.5 mg, IntraVENous, Every 3 hours PRN, severe pain (7-10), Starting on Mon05/24/22 at 1806, Phase II/On Unit
If oral and IV narcotics ordered, use oral first and only use IV if oral is ineffective or cannot take oral. Do Not give oral and IV within 1 hour of each other unless specifically ordered.
Group 2: ondansetron ODT (Zofran-ODT) disintegrating tablet 4 mgJump to med 4 mg, Oral, Every 8 hours PRN, nausea, vomiting, Starting on Mon05/24/22 at 1806, Phase II/On Unit
1st Line. If inadequate response within 60 minutes, proceed to next-line agent or contact provider if no further options ordered. Patient should allow tablet to dissolve on tongue. Do not remove from blister pack until just before administering.
Or ondansetron (Zofran) injection 4 mgJump to med 4 mg, IntraVENous, Every 6 hours PRN, nausea, vomiting, Starting on Mon05/24/22 at 1806, Phase II/On Unit
1st Line. Give IV if patient is unable to take orally. If inadequate response within 60 minutes, proceed to next-line agent or contact provider if no further options ordered.
Group 3: oxyCODONE-acetaminophen (Percocet) 5-325 MG per tablet 1 tabletJump to med 1 tablet, Oral, Every 4 hours PRN, moderate pain (4-6), Starting on Mon05/25/22 at 0859
Maximum dose of acetaminophen is 4000 mg from all sources in 24 hours.
Or oxyCODONE-acetaminophen (Percocet) 5-325 MG per tablet 2 tabletJump to med 2 tablet, Oral, Every 4 hours PRN, severe pain (7-10), Starting on 4/5/23 at 0859
Maximum dose of acetaminophen is 4000 mg from all sources in 24 hours.
Source Comments (unrecognize d section and content) In the event this informatio n is protected by the Federal Confidentiality of Alcohol and Drug Abuse Patient Records regulations: The Federal rules restrict any use of the information to criminally investigate or prosecute any alcohol or drug abuse patient.[facility] the event this information is protected by the Federal Confidentiality of Alcohol and Drug Abuse Patient Records regulations: The Federal rules restrict any use of the information to criminally investigate or prosecute any alcohol or drug abuse patient.[facility] the event this information is protected by the Federal Confidentiality of Alcohol and Drug Abuse Patient Records regulations: The Federal rules restrict any use of the information to criminally investigate or prosecute any alcohol or drug abuse patient.[facility] FOR RECORDS PERTAINING TO PATIENTS WHO ARE OR HAVE BEEN ENROLLED IN A CHEMICAL DEPENDENCY/SUBSTANCEABUSE PROGRAM, SOME INFORMATION MAY BE OMITTED. This clinical summary was aggregated from multiple sources. Caution should be exercised in using it in the provision of clinical care. This summary normalizes information from multiple sources, and as a consequence, information in this document may materially change the coding, format and clinical context of patient data. In addition, data may be omitted in some cases. CLINICAL DECISIONS SHOULD BE BASED ON THE PRIMARY CLINICAL RECORDS. [facility] [employer] [facility]. provides no warranty or guarantee of the accuracy or completeness of information in this document.
[2024-11-13 19:02] LABS: Iron 33 ug/dL (50-170); Iron Binding Capacity,Total 371 ug/dL (250-450); Iron Binding Capacity,Unsat 338 ug/dL (228-428); Magnesium 2.1 mg/dL (1.5-2.2)
[2024-11-17 21:07] LABS: Thyroglobulin, Serum Qt. < 0.1 ng/mL (1.5-38.5); Zinc, Plasma or Serum 100 ug/dL (44-115)
== END | disposition home or self-care (01) ==
LOC: MTLAB 16:18
PROVIDERS: PCP Family Medicine; Referring Provider Family Medicine; Visit Provider Family Medicine
DX: E55.9 Vitamin D deficiency, unspecified (principal); C77.0 Secondary and unspecified malignant neoplasm of lymph nodes of head, face and neck; C73 Malignant neoplasm of thyroid gland; E89.0 Postprocedural hypothyroidism; E61.1 Iron deficiency; E66.9 Obesity, unspecified; Z98.84 Bariatric surgery status
CPT/HCPCS: 36415; 80061; 82306; 82728; 83540; 83550; 83735; 84100; 84432; 84439; 84443; 84630; 86800

== ENCOUNTER → 2025-02-17 | Outpatient (CLI) | payer OTHER, SELFPAY ==
[2025-02-19 16:09] LABS: Thyroglobulin, Serum Qt. < 0.1 ng/mL (1.5-38.5)
== END | disposition home or self-care (01) ==
LOC: MTLAB 13:33
PROVIDERS: PCP Family Medicine; Referring Provider Nurse Practitioner Family; Visit Provider Nurse Practitioner Family
DX: E89.0 Postprocedural hypothyroidism (principal)
CPT/HCPCS: 36415; 84432; 84439; 84443; 86800